=== PATIENT | female | born 1980 | race Caucasian/White ===

== ENCOUNTER 2023-12-03 02:41 | Emergency (ER) | payer OTHER, SELFPAY ==
[2023-12-03 02:42] VITALS: BP 150/82; PULSE 104; RESP 18; TEMP 36.8; O2SAT 98; BMI 44.1
--- NOTE | 2023-12-03 03:42 | EX.ED.DYSGE1 ---
HPI History of Present Illness Chief Complaint: Allergic Reaction Informant: patient Narrative Narrative: Patient is a 43-year-old female with reported history of angioedema (does not know the cause but states she gets angioedema intermittently over the last 10 years). Is not aware of having a history of hereditary angioedema. She states she woke up around midnight and noticed that her tongue felt swollen. She took 2 Benadryl and it did not go down which prompted her to come to the emergency room. She denies difficulty breathing. She denies any rash. She denies any abdominal cramping, nausea or vomiting. She denies any itching. She now feels that it is slightly starting to improve. States in the past steroids are helpful. She denies any new foods, medications or exposures to trigger it. [facility] Medical History Angio-edema Home Medications ?Medication ?Instructions ?Recorded ?Last Taken ?Type doxepin 25 mg capsule 25 mg PO QHS 12/03/23 Unknown History famotidine 20 mg tablet (Pepcid) 20 mg PO BID #10 tabs 12/03/23 Unknown Rx montelukast 10 mg tablet 10 mg PO QHS 12/03/23 12/02/23 History (Singulair) prednisone 20 mg tablet 40 mg (2 x 20 mg) PO DAILY #8 tabs 12/03/23 Unknown Rx Allergy/AdvReac Type Severity Reaction Status Date / Time Penicillins (PCN) Allergy Hives Verified 12/03/23 02:46 Family History no significant family his Surgical History Hx of cholecystectomy Social History Smoking Status: Former smoker ROS ROS ED Constitutional Constitutional ED: Denies chills or fever(s) ENT ENT ED: Reports other Details: Reports tongue swelling. Denies any swelling of her mouth or throat ; Denies sore throat Respiratory/Chest Respiratory/Chest: Denies cough or dyspnea Gastrointestinal Gastrointestinal: Denies abdominal pain, diarrhea, nausea or vomiting Musculoskeletal Musculoskeletal: Denies arthralgias or myalgias Integumentary Denies rash Allergic/Immunologic Allergic/Immunologic ED: Reports tongue swelling; Denies mouth swelling or urticaria EXAM Physical Exam Const Vital Signs: 12/03/23 02:42 Temperature 98.2 F Temperature Source Temporal Pulse Rate 104 H Respiratory Rate 18 Blood Pressure 150/82 H Blood Pressure Mean 104 Pulse Ox 98 Oxygen Delivery Method Room Air Positive well nourished and well developed General Appearance ED: well developed and NAD HEENT Reports moist mucous membranes HEENT Narrative: Normal oropharynx. Normal uvula. Questionable small amount of swelling on the right side of the tongue but no obvious angioedema on exam Eyes PERRL and EOMs intact bilaterally Neck supple Neck Narrative: No stridor Chest Wall inspection of chest normal Resp normal respiratory effort and clear to auscultation bilaterally Auscultation: Negative for wheezes or diminished lung sounds Cardio regular rate and regular rhythm GI normal to inspection, nondistended, normoactive bowel sounds and non-tender Auscultation: normoactive bowel sounds Extremity normal to inspection General Extremety ED: Negative for edema General Extremity: Negative for edema Neuro oriented x3 Sensorium / Orientation: alert Motor Exam: Negative for general weakness Psych mental status grossly normal Skin no rashes or lesions noted Skin Narrative: No urticaria appreciated MDM MDM MDM Narrative Medical decision making narrative: Patient evaluated for tongue swelling. 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 Denies any new medications or exposures. She feels that after taking 50 mg of Benadryl prior to arrival that her tongue swelling is a little improved now. I do not appreciate any significant angioedema. At this time I do not think she requires IV access, epinephrine, TXA or further Benadryl. Is given oral prednisone and placed on a burst of prednisone. She will continue take Benadryl as needed. Is also given a short course of Pepcid. Given return precautions. Is given a work note per her request. Patient agreeable this plan of care. Patient stable in the emergency room. Discharge Plan Triage Chief Complaint: Allergic Reaction ED Provider: Tonie Peters Dx/Rx/DC Orders Clinical Impression: Mild tongue swelling, History of angioedema Instructions: ED Angioedema Prescriptions: New prednisone 20 mg tablet 40 mg PO DAILY Qty: 8 0RF famotidine [Pepcid] 20 mg tablet 20 mg PO BID Qty: 10 0RF No Action montelukast [Singulair] 10 mg tablet 10 mg PO QHS doxepin 25 mg capsule 25 mg PO QHS Stand Alone Forms: ED Work / School Excuse Primary Care Provider: Alexis Mcdaniel Referrals: Alexis Mcdaniel MD [Primary Care Provider] - Activity Restrictions/Additional Instructions: Continue to take Benadryl (up to 50 mg every 6 hours) as needed for symptoms. Take the course of Pepcid and prednisone as prescribed as well. Please return if you have a progression worsening of your symptoms. Print Language: Urdu Disposition Disposition: Home, Self Care
[2023-12-03] MEDS: predniSONE 20 MG Tablet 60 MG PO (03:49)
[2023-12-03] MEDS: Famotidine 20 MG Tablet PO (03:49)
== END 2023-12-03 04:35 | disposition home or self-care (01) ==
PROVIDERS: Emergency Provider Emergency Medicine; PCP Family Medicine; Visit Provider Emergency Medicine
DX: K14.8 Other diseases of tongue (principal); Z87.891 Personal history of nicotine dependence; Z79.899 Other long term (current) drug therapy; Z79.52 Long term (current) use of systemic steroids; Z88.9 Allergy status to unspecified drugs, medicaments and biological substances
CPT/HCPCS: 99282

== ENCOUNTER → 2024-01-31 | Outpatient (CLI) | payer OTHER, SELFPAY ==
[2024-01-31 07:24] LABS: Absolute Lymphocyte Count 2.64 X10^3/uL (0.83-4.51); Absolute Neutrophil Count 6.8 X10^3/uL (2.0-7.7); Basophil# 0.07 X10^3/uL; Basophil% 0.7 % (0-1); Eosinophil# 0.22 X10^3/uL; Eosinophils% 2.1 % (0-5); Hematocrit 45.3 % (37-47); Hemoglobin 14.8 g/dL (12.0-15.0); Lymphocyte # 2.64 X10^3/ul (0.83-4.51); Lymphocyte % 25.2 % (19-41); Mean Corp Hgb Conc 32.7 g/dL (32-36); Mean Corpuscular Hgb 31.4 pg (27.0-32.0); Monocyte% 6.7 % (0-10); NRBC Flagged by Analyzer 0 % (0-5); Neutrophil # 6.79 X10^3/uL (2.7-7.7); Neutrophil % 64.9 % (47-70); Platelet Count 376 K/mm3 (150-450); RBC Distribution Width SD 46.2 fl (35.1-43.9); Red Blood Count 4.72 M/mm3 (4.2-5.4); White Blood Count 10.5 K/mm3 (4.4-11.0)
[2024-01-31 08:20] LABS: ALB/GLOB Ratio 0.8 RATIO (0.9-2.4); AST(SGOT) 13 U/L (15-37); Alanine Aminotransfer ALT/SGPT 19 U/L (13-56); Albumin, Serum 3.2 g/dL (3.2-5.0); Alkaline Phosphatase 80 U/L (45-117); Anion Gap 7 (5-15); BUN 15 mg/dL (7-18); BUN/Creat Ratio 14.3 RATIO (10-20); Calcium,Total 8.6 mg/dL (8.5-10.1); Chloride 109 mmol/L (98-107); Cholesterol 207 mg/dL (200); Creatinine, Serum 1.05 mg/dL (0.55-1.02); EST Glomerular Filtration Rate 60 mL/min (>60); Est Glom Filt Rate - Afr Amer 73 mL/min (>60); Follicle Stimulating Hormone 22.7 mIU/mL; Globulin 4.2 g/dL (2.2-4.2); Glucose 121 mg/dL (74-106); High Density Lipoprotein 54 mg/dL; Luteinizing Hormone 15.6 mIU/mL; Potassium 3.7 mmol/L (3.5-5.1); Protein, Total 7.4 g/dL (6.4-8.2); Sodium Level 139 mmol/L (136-145); Triglycerides 102 mg/dL; Very Low Density Lipoprotein 20 mg/dL (5-40)
[2024-01-31 08:23] LABS: Vitamin D,25 Hydroxy 44.4 ng/mL
[2024-02-01 04:08] LABS: PROGESTERONE 0.3 ng/mL (.)
[2024-02-01 12:35] LABS: Hemoglobin A1c 5.7 % (3.8-5.6)
[2024-02-04 17:07] LABS: Estrogen, Total, Serum 45 pg/mL (.)
== END | disposition home or self-care (01) ==
PROVIDERS: PCP Family Medicine; Referring Provider Family Medicine; Visit Provider Family Medicine
DX: R73.09 Other abnormal glucose (principal); R53.83 Other fatigue; R23.2 Flushing; Z13.220 Encounter for screening for lipoid disorders
CPT/HCPCS: 80053; 80061; 82306; 82672; 83001; 83002; 83036; 84144; 84443; 85025

== ENCOUNTER → 2024-02-10 | Outpatient (CLI) | payer OTHER, SELFPAY ==
--- NOTE | 2024-02-10 15:49 | RAD_ITS ---
STUDY: X-RAY - PELVIS AND RIGHT HIP REASON FOR EXAM: Female, 43 years old. Hip pain TECHNIQUE: 3 views of the pelvis and hip. COMPARISON: None. FINDINGS: There is a non-specific bowel gas pattern. Normal visualized soft tissue structures. Normal bilateral iliac wings, sacroiliac joints and visualized sacrum. Normal bilateral superior and inferior pubic rami. Normal pubic symphysis. Normal bilateral ischial tuberosities. Normal visualized femoral head. Normal acetabulum. Normal hip joint. RAD/HIP, UNI W/ Pelvis 2-3 Views IMPRESSION: Normal x-ray examination of the pelvis and hip. MRI may be useful for more definitive evaluation if clinically warranted Electronically Signed: John Murphy MD at 22:58 EST ,
== END | disposition home or self-care (01) ==
PROVIDERS: PCP Family Medicine; Referring Provider Family Medicine; Visit Provider Family Medicine
DX: M25.551 Pain in right hip (principal)
CPT/HCPCS: 73502

== ENCOUNTER → 2024-05-15 | Outpatient (CLI) | payer OTHER, SELFPAY ==
[2024-05-18 19:08] LABS: HPV APTIMA, High Risk Negative (Negative)
[2024-05-19 08:13] LABS: HPV Reflexed? YES, CHARGE PATIENT
== END | disposition home or self-care (01) ==
LOC: LABSPEC 14:23
PROVIDERS: PCP Family Medicine
DX: R87.619 Unspecified abnormal cytological findings in specimens from cervix uteri (principal)
CPT/HCPCS: 87624; 88175; G0145

== ENCOUNTER → 2024-10-09 | Outpatient (CLI) | payer OTHER, SELFPAY ==
--- NOTE | 2024-10-09 12:23 | BI_ITS ---
EXAM: SCRN MAMM (CAD)W/CHRISTOPHER BILAT DATE: 10/09/2024 CLINICAL HISTORY: F, Age 44 y/o , SCREENING TECHNIQUE: SCRN MAMM (CAD)W/CHRISTOPHER BILAT COMPARISON: Prior exam(s) were compared. FINDINGS: TISSUE DENSITY: There are scattered areas of fibroglandular density. Bilateral Breast Mammographic Findings: No suspicious masses, calcifications or other abnormalities are identified. BI/SCRN MAMM (CAD)W/CHRISTOPHER BILAT IMPRESSION: No mammographic evidence of malignancy in either breast OVERALL FINAL ASSESSMENT BI-RADS 1: NEGATIVE. RECOMMENDATION: Routine annual follow-up in 1 Year A letter with findings and recommendations will be mailed to the patient. Reading Location: [id number]
== END | disposition home or self-care (01) ==
LOC: OPBI 12:22
PROVIDERS: PCP Family Medicine
DX: Z12.31 Encounter for screening mammogram for malignant neoplasm of breast (principal)
CPT/HCPCS: 77063; 77067

== ENCOUNTER 2024-11-01 19:22 | Emergency (ER) | payer OTHER, SELFPAY ==
[2024-11-01 19:24] VITALS: BP 146/78; PULSE 83; RESP 17; TEMP 36.7; O2SAT 100; BMI 43.1
--- NOTE | 2024-11-01 20:13 | CT_ITS ---
EXAM: CT BRAIN/HEAD WITHOUT CONTRAST; CT SPINE CERVICAL WITHOUT CONTRAST CLINICAL HISTORY: FALL, NECK PAIN COMPARISON: None. TECHNIQUE: Noncontrast CT images of the head and cervical spine with multiplanar reconstructions. Dose reduction techniques were used including intermediate exposure control (AEC),iterative reconstruction technique, and/or mA and/or KV dose adjustments based on patient's size. FINDINGS: HEAD: No acute intracranial hemorrhage, extra-axial collection, mass effect or evidence of acute infarct. Ventricles and subarachnoid spaces are normal in size. Orbital contents are unremarkable. Intact skull base and calvarium. Clear paranasal sinuses and mastoid air cells. CERVICAL SPINE: No acute fracture or subluxation. Straightening of the cervical lordosis may be positional or can be seen with muscle spasm. Minimal degenerative changes are present most pronounced at C5-6. No prevertebral soft tissue swelling. Unremarkable paravertebral soft tissues. CT/Brain/Head without Contrast IMPRESSION: No acute intracranial or cervical spine traumatic findings. Reading Location: [id number]
--- NOTE | 2024-11-01 20:13 | CT_ITS ---
EXAM: CT BRAIN/HEAD WITHOUT CONTRAST; CT SPINE CERVICAL WITHOUT CONTRAST CLINICAL HISTORY: FALL, NECK PAIN COMPARISON: None. TECHNIQUE: Noncontrast CT images of the head and cervical spine with multiplanar reconstructions. Dose reduction techniques were used including intermediate exposure control (AEC),iterative reconstruction technique, and/or mA and/or KV dose adjustments based on patient's size. FINDINGS: HEAD: No acute intracranial hemorrhage, extra-axial collection, mass effect or evidence of acute infarct. Ventricles and subarachnoid spaces are normal in size. Orbital contents are unremarkable. Intact skull base and calvarium. Clear paranasal sinuses and mastoid air cells. CERVICAL SPINE: No acute fracture or subluxation. Straightening of the cervical lordosis may be positional or can be seen with muscle spasm. Minimal degenerative changes are present most pronounced at C5-6. No prevertebral soft tissue swelling. Unremarkable paravertebral soft tissues. CT/Spine Cervical without Contras IMPRESSION: No acute intracranial or cervical spine traumatic findings. Reading Location: [id number]
--- NOTE | 2024-11-01 20:59 | ED.VIS.FALL ---
HPI HPI - Fall History of Present Illness Chief Complaint: Fall Narrative Narrative: Patient is a 44-year-old female presenting to the emergency department after a fall. Patient has a past medical history of cervical strain and thoracic myofascial strain. States that she finished having dinner while she was sitting in a recliner watching TV when she stood up and then stretched. She states that she felt a little lightheaded and then fell over onto ottoman striking the left side of her face. She did land on carpet. She states she never lost consciousness she just felt lightheaded and lost her balance. She denies any chest pain, shortness of breath, palpitations, dizziness. She reports she is having neck pain now. [facility] Medical History Thoracic myofascial strain Cervical strain Right hip pain Knee pain, right Angio-edema Home Medications ?Medication ?Instructions ?Recorded ?Last Taken ?Type doxepin 25 mg capsule 25 mg PO QHS 12/03/23 Unknown History famotidine 20 mg tablet (Pepcid) 20 mg PO BID #10 tabs 12/03/23 Unknown Rx montelukast 10 mg tablet 10 mg PO QHS 12/03/23 12/02/23 History (Singulair) cetirizine 10 mg tablet 10 mg PO QDAY 02/15/24 Unknown History fluticasone propionate 50 intranasal 02/15/24 Unknown History mcg/actuation nasal spray,suspension levonorgestrel 0.15 mg-ethinyl 1 tab PO QDAY 02/15/24 Unknown History estradiol 0.03 mg tablet (Altavera (28)) methocarbamol 500 mg tablet 1,000 mg PO BID 02/15/24 Unknown History phentermine 37.5 mg tablet 37.5 mg PO QDAY 02/15/24 Unknown History cyclobenzaprine 10 mg tablet 10 mg PO HS PRN muscle spasm #14 06/14/24 Unknown Rx tabs methylprednisolone 4 mg tablets in See Rx Instructions PO PER PKG DIR 06/14/24 Unknown Rx a dose pack (Medrol (Pete)) #21 tabs Allergy/AdvReac Type Severity Reaction Status Date / Time amoxicillin (From Augmentin) Allergy Intermediate Upset Verified 11/01/24 19:26 Stomach clavulanic acid (From Allergy Intermediate Upset Verified 11/01/24 19:26 Augmentin) Stomach SHAHRIAR Inhibitors Allergy Unknown PT UNSURE Verified 11/01/24 19:26 OF REACTION Penicillins (PCN) Allergy Hives Verified 11/01/24 19:26 Surgical History Hx of cholecystectomy Social History household members: spouse Smoking Status: Former smoker ROS ROS ED ROS Narrative see HPI EXAM Physical Exam Narrative Exam Narrative: Vital signs: Reviewed General: Alert and oriented. No acute distress HEENT: Head is normocephalic and atraumatic. Midface nontender to palpation. There is a superficial abrasion to the left cheek bone. No laceration. No oral trauma. No pain with EOM. pupils equal round and reactive. Nares are patent. Oropharynx and throat exams normal. Neck: Supple without lymphadenopathy nontender. There is midline cervical spinal tenderness to palpation. No step-offs or deformities. Cardiovascular: Regular rate and rhythm, no murmurs. No rubs or gallops. Normal S1 and S2 Respiratory: Clear to auscultation bilaterally. No wheezes, rales, rhonchi Abdominal: Soft and nontender. Normal bowel sounds. No guarding or rebound. Nonsurgical abdomen Extremities: No tenderness. No bruising. Normal range of motion. Normal sensation. No midline thoracic or lumbar spinal tenderness to palpation. No step-offs or deformities. Hips are stable and nontender to palpation. Extremities are atraumatic and nontender to palpation with normal range of motion. Skin: No rash or redness. Neurological: Cranial nerves II through XII are grossly intact. Normal strength and sensation. Normal cerebellar function The rest of the physical exam is unremarkable Const Vital Signs: 11/01/24 19:24 11/01/24 19:52 11/01/24 21:14 Temperature 98.0 F 98.1 F Temperature Source Temporal Pulse Rate 83 80 Respiratory Rate 17 15 Respiratory Effort Normal Non-Labored Respiratory Depth Normal Blood Pressure 146/78 H 138/75 H Blood Pressure Mean 100 96 Pulse Ox 100 100 Oxygen Delivery Method Room Air Room Air MDM MDM MDM Narrative Medical decision making narrative: Patient is a 44-year-old female presenting to the emergency department for a fall. Patient was seen and examined. Vitals are stable. Patient resting bed comfortably no acute distress. Patient given Tylenol for pain control. Given the midline cervical spinal tenderness to palpation, CT ordered. CT of the brain was also obtained. Given the lightheadedness although I suspect it is orthostatic given she went from sitting to standing and then stretching causing the lightheadedness, I did obtain an EKG which shows normal sinus rhythm with no ischemic changes. No arrhythmia. No ST elevation or depression. CT brain shows no acute intracranial abnormalities. CT cervical spine shows no traumatic findings. Patient was reevaluated. Notified of the negative workup. Instructed to take Tylenol and Motrin at home for pain control. Patient discharged from the Emergency Department. I do not feel that the patient's evaluation reveals any acute reason for admission at this time. I instructed them to either follow-up with their primary care physician or promptly return to the Emergency Department for reevaluation should symptoms worsen or new symptoms develop. I explained what symptoms would indicate the need to return to the emergency department. Shared decision making was used. The patient voiced understanding of the treatment plan and is agreeable with it. Clinical impression: 1. lightheadedness 2. abrasion 3. neck strain History & Record Review Discussion w/independent historian: Patient Radiography Diagnostic Testing: Clinical Impression(s) from Imaging Studies Brain CT 11/01/24 20:13 IMPRESSION: No acute intracranial or cervical spine traumatic findings. Reading Location: [facility] Cervical Spine CT 11/01/24 20:13 IMPRESSION: No acute intracranial or cervical spine traumatic findings. Reading Location: [facility] Discharge Plan Triage Chief Complaint: Fall ED Provider: Giulia Moore Dx/Rx/DC Orders Clinical Impression: Fall, Abrasion of face, Neck strain Instructions: ED Abrasion, ED Neck Sprain or Strain, ED Fall Prevention Prescriptions: No Action levonorgestrel-ethinyl estrad [Altavera (28)] 0.15-0.03 mg tablet 1 tab PO QDAY methocarbamol 500 mg tablet 1,000 mg PO BID fluticasone propionate 50 mcg/actuation spray,suspension intranasal Patient Comments: [NO ORIGINAL SIG] cetirizine 10 mg tablet 10 mg PO QDAY phentermine 37.5 mg tablet 37.5 mg PO QDAY methylprednisolone [Medrol (Pete)] 4 mg tablets,dose pack See Rx Instructions PO PER PKG DIR Qty: 21 0RF Rx Instructions: PO PER PKG DIR cyclobenzaprine 10 mg tablet 10 mg PO HS PRN (Reason: muscle spasm) Qty: 14 0RF montelukast [Singulair] 10 mg tablet 10 mg PO QHS doxepin 25 mg capsule 25 mg PO QHS famotidine [Pepcid] 20 mg tablet 20 mg PO BID Qty: 10 0RF Stand Alone Forms: ED Work / School Excuse Primary Care Provider: Wild Echols Referrals: Wild Echols MD [Primary Care Provider] - 2 Days Activity Restrictions/Additional Instructions: Your evaluation in the Emergency Department did not reveal any acute reason for admission. However, I want to emphasize that you may be early in the course of a disease process or illness even if it is not present. For this reason you should follow-up within 24 hours for reevaluation with either your primary care physician or if necessary back here in the Emergency Department. You should return to the Emergency Department immediately if your symptoms worsen or new symptoms develop. Print Language: Macedonian Disposition Disposition: Home, Self Care Discharge Date/Time: 11/01/24 21:15
--- OUTSIDE RECORDS SUMMARY | 2024-11-01 21:03 | XMS RPT_ITS | CCD ---
Author Organization [facility] Care Team Providers Care Interactive Media Director Name Role Phone VERONAPEYTON Aviles Unavailable Unavailable DUANE STAUFFER Unavailable Unavailable Cheng Mcdaniel MD Primary Care Provider Cheng Mcdaniel MD Primary Care Provider Cheng Mcdaniel MD Primary Care Provider Cheng Mcdaniel MD Primary Care Provider Cheng Mcdaniel MD Primary Care Provider Podlogar QA AUTOMATION ARCHITECT.Jazz COBURN Unavailable JACINTA GREEN Attending Unavailable CHENG MCDANIEL Primary Care Unavailab KOTA Buchanan Attending Unavailable CHENG MCDANIEL Primary Care Unavailab le CHENG MCDANIEL Primary Care Unavailab le CHENG MCDANIEL Primary Care Unavailab le CHENG MCDANIEL Primary Care Unavailab le PODJAZZ JACOBS Attending Unavailable CHENG MCDANIEL Primary Care Unavailab CHENG Chavez Primary Care Unavailab JACINTA Moreno Referring Unavailable CHENG MCDANIEL Primary Care Unavailab le CHENG MCDANIEL Primary Care Unavailab le CHENG MCDANIEL Primary Care Unavailab le CHENG MCDANIEL Primary Care Unavailab le CHENG MCDANIEL Primary Care Unavailab le CHENG MCDANIEL Primary Care Unavailab le CHENG MCDANIEL Primary Care Unavailab le PODJAZZ JACOBS Attending Unavailable CHENG MCDANIEL Primary Care Unavailab le CHENG MCDANIEL Primary Care Unavailab le MICAH JO Referring Unavailable CHENG MCDANIEL Primary Care Unavailab le CHENG MCDANIEL Primary Care Unavailab le JACINTA GREEN Attending Unavailable CHENG MCDANIEL Primary Care Unavailab oneyda RIGGINS MD, WILD Primary Care Physician Vaishnavi GOLDSMITH, Wild Primary Care Provider Vaishnavi GOLDSMITH, Wild Referring Provider [phone] Kunal Chicas Attending Provider McMorrow HOOK PULLER-C, Nico Attending Provider [phone] McMorrow HOOK PULLER-C, Nico Referring Provider Alexis Mcdaniel Primary Care Unavailable Tonie Peters Attending Unavailable McMorrow HOOK PULLER, Nico Attending Unavailable Vaishnavi, Chalon Primary Care Unavailable Kunal Chicas Attending Unavailable Vaishnavi, Chalon Referring Unavailable Vaishnavi, Chalon Primary Care Unavailable Vaishnavi, Chalon Referring Unavailable Vaishnavi, Chalon Primary Care Unavailable Kunal Chicas Attending Unavailable Vaishnavi, Chalon Referring Unavailable Vaishnavi, Chalon Primary Care Unavailable Kunal Chicas Attending Unavailable Vaishnavi, Aiyanaon Attending Unavailable Vaishnavi, Chalon Referring Unavailable Vaishnavi, Chalon Primary Care Unavailable Vaishnavi, Chalon Attending Unavailable Vaishnavi, Chalon Referring Unavailable Vaishnavi, Chalon Primary Care Unavailable McMorrow HOOK PULLER, Nico Attending Unavailable McMorrow HOOK PULLER, Nico Referring Unavailable Vaishnavi, Chalon Primary Care Unavailable DEMARCUS LARSEN Attending Unavailable VAISHNAVI GOLDSMITH, WILD Primary Care Unavailable Allergies Allergy Classification Reported Allergen(s) Allergy Type Date of Onset Reaction(s) Facility Penicillins (antibiotic) (1 source) Penicillins Drug Allergy 2 [facility] (7 sources) Angiotensin-con verting enzyme inhibitor agent; Translations: [HAROLDO INHIBITORS] Propensity to adverse reactions to drug 4 [facility] Work Phone: Comment on above: ANGIOEDEMA (6 sources) Penicillins; Translations: [PENICILLINS] Propensity to adverse reactions 2 [facility] (20 sources) Bupropion/Dieth ylpropion; Translations: [BUPROPION/DIET HYLPROPION] Propensity to adverse reactions 3 Rash [facility] (20 sources) Angiotensin-con verting enzyme inhibitor agent Propensity to adverse reactions to drug 10-23-201 4 Angioedema [facility] Work Phone: (20 sources) Penicillins Propensity to adverse reactions 2 [facility] (1 source) buPROPion; Translations: [bupropion] Drug Allergy [facility] (1 source) Amoxicillin Drug Allergy 5 Upset Stomach [facility] (1 source) Angiotensin Converting Enzyme (Haroldo) Inhibitors Allergy to substance 5 PT UNSURE OF REACTION [facility] (1 source) Clavulanate Drug Allergy 5 Upset Stomach [facility] (1 source) Penicillins Allergy to substance 5 Hives [facility] (1 source) Amoxicillin Drug Allergy 5 [facility] (1 source) Angiotensin Converting Enzyme (Haroldo) Inhibitors Drug allergy (disorder) 5 [facility] (1 source) Clavulanate Drug Allergy 5 [facility] (1 source) Penicillins Drug allergy (disorder) 5 [facility] Medications Current Medications Medication Drug Class(es) Dates Sig (Normalized) Sig (Original) Albuterol (1 source) beta2-Adrenergic Agonist Start: 02-23-2017 take 1 puff(s) by inhalation once as needed for wheezing Ventolin HFA MDI (90 mcg/inh) inhalation aerosol 1 puff(s), Inhalation, Once, PRN as needed for wheezing, # 18 gram(s), 0 Refill(s) Start Date: 02/23/17 Status: Ordered Quantity: 18.0 Unit: g Repeat number: 1 cephalexin 500 mg oral capsule (4 sources) Cephalosporin Antibacterial Start: 07-22-2022 End: 08-01-2022 take 1 capsule by mouth four times daily cephALEXin (KEFLEX) 500 mg capsule Indications: Skin infection Take 1 capsule by mouth four times daily for 5 days. 40 capsule 0 07/27/2022 08/01/2022 Active Comment on above: Take 1 capsule by [facility] four times daily for 5 days. cetirizine hydrochloride 10 mg oral tablet (5 sources) Histamine-1 Receptor Antagonist Start: 01-27-2024 take 1 tablet by mouth once daily Cetirizine 10 mg tablet Active 10 mg PO daily February 15, 2024 1:00am Start: 01-14-2024 End: 01-21-2024 take 1 tablet by mouth once daily cetirizine (ZYRTEC) 10 mg tablet Take 1 tablet by mouth once daily for 7 days. 7 tablet 01/14/2024 01/21/2024 Active cyclobenzaprine hydrochloride 10 mg oral tablet (10 sources) Muscle Relaxant Start: 02-15-2024 End: 06-14-2024 take 1 tablet by mouth at bedtime as needed for muscle spasms Cyclobenzaprine 10 mg tablet Active 10 mg PO BEDTIME as needed for muscle spasm 14 0 June 14, 2024 11:29am Start: 03-06-2022 End: 06-19-2022 take 1 tablet by mouth every eight hours as needed cyclobenzaprine (FLEXERIL) 10 mg tablet Take 1 tablet by mouth three times daily as needed for muscle spasm. 21 tablet 0 03/06/2022 06/19/2022 Discontinued (Course of therapy completed) Comment on above: Take 1 tablet by ricardo th three times daily as needed for muscle spasm. doxepin hydrochloride 25 mg oral capsule (20 sources) Tricyclic Antidepressant Start: 02-06-20 23 End: 01-27-20 24 take 1 capsule by mouth at bedtime Doxepin 25 mg capsule Active 25 mg PO AT BEDTIME December 03, 2023 12:00am Start: 02-02-2022 End: 11-30-2022 take 1 capsule by mouth once daily at bedtime doxepin capsule 50 mg Take 1 capsule by mouth daily at bedtime. 30 capsule 11 02/02/2022 11/30/2022 Discontinued Start: 08-08-2021 End: 02-02-2022 take 1 capsule by mouth once daily at bedtime doxepin capsule 75 mg Take 1 capsule by mouth daily at bedtime. 30 capsule 11 08/08/2021 02/02/2022 Discontinued Start: 05-20-2021 End: 08-08-2021 take 1 capsule by mouth once daily at bedtime doxepin capsule 100 mg Indications: Urticaria , Angioedema, subsequent encounter , Cough TAKE 1 CAPSULE BY MOUTH EVERYDAY AT BEDTIME 90 capsule 0 05/20/2021 08/08/2021 Discontinued Start: 04-22-2020 End: 04-26-2020 take 1 capsule by mouth once daily at bedtime doxepin capsule 100 mg TAKE 1 CAPSULE BY MOUTH EVERYDAY AT BEDTIME 30 capsule 04/22/2020 04/26/2020 Discontinued Start: 09-25-2019 End: 03-28-2020 take 1 capsule by mouth once daily at bedtime doxepin capsule 100 mg TAKE 1 CAPSULE BY MOUTH EVERYDAY AT BEDTIME 30 capsule 5 09/25/2019 03/28/2020 Discontinued Comment on above: TAKE 1 CAPSULE BY MO UTH EVERYDAY AT BEDTIME Take 1 capsule by mo uth daily at bedtime. doxycycline hyclate 100 mg oral tablet (3 sources) Tetracycline-class Drug Start: End: take 1 tablet by mouth twice daily doxycycline (VIBRA-TABS) 100 mg tablet Take 1 tablet by mouth two times a day for 7 days. 14 tablet 0 07/11/2023 07/18/2023 Active Comment on above: Take 1 tablet by ricardo th two times a day for 7 days. Levonorgestrel-Ethin yl Estrad (20 sources) Progestin, Estrogen, Progestin-containing Intrauterine Device Start: Levonorgestrel-Ethin yl Estrad (Altavera (28)) 0.15-0.03 mg tablet Active 1 {tbl} PO daily February 15, 2024 1:00am Start: 05-13-2023 take 1 tablet by ricardo th once daily levonorgestrel-ethinyl estradiol (ALTAVERA, 28,) 0.15-0.03 mg per tab Indications: Medication refill , Encounter for surveillance of contraceptive pills Take 1 tablet by mouth once daily. 84 tablet 4 05/13/2023 Active Start: 05-07-2022 End: 05-13-2023 take 1 tablet by mouth once daily ALTAVERA, 28, 0.15-0.03 mg per tab Indications: Medication refill , Encounter for surveillance of contraceptive pills TAKE 1 TABLET BY MOUTH EVERY DAY 84 tablet 4 05/07/2022 05/13/2023 Discontinued Start: 05-07-2022 take 1 tablet by ricardo th once daily ALTAVERA, 28, 0.15-0.03 mg per tab Indications: Medication refill , Encounter for surveillance of contraceptive pills TAKE 1 TABLET BY MOUTH EVERY DAY 84 tablet 4 05/07/2022 Active Start: 05-05-2021 End: 05-07-2022 take 1 tablet by mouth once daily levonorgestrel-ethinyl estradiol (KURVELO, 28,) 0.15-0.03 mg per tab Indications: Medication refill , Encounter for surveillance of contraceptive pills Take 1 tablet by mouth once daily. 84 tablet 4 05/05/2021 05/07/2022 Discontinued Start: 05-05-2021 take 1 tablet by ricardo th once daily levonorgestrel-ethinyl estradiol (KURVELO, 28,) 0.15-0.03 mg per tab Indications: Medication refill , Encounter for surveillance of contraceptive pills Take 1 tablet by mouth once daily. 84 tablet 4 05/05/2021 Active Start: 04-26-2019 End: 04-29-2020 take 1 tablet by mouth once daily levonorgestrel-ethinyl estradiol (KURVELO, 28,) 0.15-0.03 mg per tab Indications: Medication refill Take 1 tablet by mouth once daily. 84 tablet 4 04/26/2019 04/29/2020 Discontinued Comment on above: Take 1 tablet by ricardo th once daily. TAKE 1 TABLET BY RICARDO TH EVERY DAY famotidine 20 mg oral tablet (14 sources) Histamine-2 Receptor Antagonist Start: End: take 1 tablet by mouth twice daily Famotidine (Pepcid) 20 mg tablet Active 20 mg PO TWICE A DAY 10 December 03, 2023 12:00am fluticasone propionate 0.05 mg/actuat metered dose nasal spray (9 sources) Corticosteroid Start: 4 Fluticasone Propionate 50 mcg/actuation spray,suspension Active INTRANASAL February 15, 2024 1:00am Start: 01-14-2024 take 2 spray(s) by m outh once daily fluticasone (FLONASE) 50 mcg/actuation nasal spray Use 2 Sprays in each nostril once daily. Rinse mouth after use. 1 Each 01/14/2024 Active Start: 10-23-2020 End: 08-08-2021 take 2 spray(s) by mouth once daily fluticasone (FLONASE) 50 mcg/actuation nasal spray Use 2 Sprays in each nostril once daily. Rinse mouth after use. 1 Bottle 1 10/23/2020 08/08/2021 Discontinued Comment on above: Use 2 Sprays in each nostril once daily. Rinse mouth after use. levocetirizine dihydrochloride 5 mg oral tablet (1 source) Histamine-1 Receptor Antagonist Start: 02-24-20 levocetirizine 5 mg oral tablet (NF) Dose : 5 mg = 1 tab(s), Oral, qPM, # 30 tab(s), 0 Refill(s) Start Date: 02/23/17 Status: Ordered Quantity: 30.0 Unit: tab(s) Repeat number: 1 methocarbamol 500 mg oral tablet (2 sources) Muscle Relaxant Start: 02-15-20 take 2 tablets by mouth twice daily Methocarbamol 500 mg tablet Active 1000 mg PO TWICE A DAY February 15, 2024 1:00am Start: 12-30-2023 End: 01-02-2024 take 1 tablet by mouth every six hours as needed methocarbamol (ROBAXIN) 500 mg tablet Take 1 tablet by mouth every 6 hours as needed (Pain) for up to 3 days. 12 tablet 12/30/2023 01/02/2024 Active methylPREDNISolone 4 mg oral tablet (3 sources) Corticosteroid Start: 06-14-2024 take 1 tablet by mouth once Methylprednisolone (Medrol (Ifrah)) 4 mg tablets,dose pack Active 0 PO per package directions 21 0 June 14, 2024 12:00am PO PER PKG DIR Start: 08-04-2023 End: 08-10-2023 methylPREDNISolone (MEDROL, IFRAH,) 4 mg Dose-Pack Follow dosing instructions, take with food. 21 tablet 0 08/04/2023 08/10/2023 Active [facility] Medication (1 source) Start: 02-23-2017 Misc Medicatio n 0 Refill(s) Start Date: 02/23/17 Status: Ordered Repeat number: 1 montelukast 10 mg oral tablet (20 sources) Leukotriene Receptor Antagonist Start: 06-24-2021 End: 01-27-2024 take 1 tablet by mouth at bedtime Montelukast (Singulair) 10 mg tablet Active 10 mg PO AT BEDTIME December 03, 2023 12:00am Start: 02-23-2017 End: 04-26-2020 take 1 tablet by mouth once daily at bedtime montelukast (SINGULAIR) 10 mg tablet Take 1 tablet by mouth daily at bedtime. 90 tablet 3 07/28/2019 04/26/2020 Discontinued Comment on above: TAKE 1 TABLET BY RICARDO TH EVERYDAY AT BEDTIME Take 1 tablet by ricardo th daily at bedtime. mupirocin 0.02 mg/mg topical ointment (3 sources) RNA Synthetase Inhibitor Antibacterial Start: End: mupirocin (BACTROBAN) 2 % ointment Apply to affected area three times daily for 7 days. 15 g 0 07/22/2022 07/29/2022 Active Comment on above: Apply to affected ar ea three times daily for 7 days. ofloxacin 3 mg/ml otic solution (1 source) Quinolone Antimicrobial Start: End: ofloxacin (FLOXIN) 0.3 % otic solution Use 5 Drops in the left ear twice daily for 10 days. 5 mL 0 10/14/2022 10/24/2022 Active Comment on above: Use 5 Drops in the l eft ear twice daily for 10 days. phentermine hydrochloride 37.5 mg oral tablet (1 source) Sympathomimetic Amine Anorectic Start: take 1 tablet by mouth once daily Phentermine 37.5 mg tablet Active 37.5 mg PO daily February 15, 2024 1:00am sulfamethoxazole 800 mg / trimethoprim 160 mg oral tablet (4 sources) Dihydrofolate Reductase Inhibitor Antibacterial, Sulfonamide Antimicrobial Start: End: take 1 tablet by mouth twice daily sulfamethoxazole-t rimethoprim (BACTRIM DS) 800-160 mg per tablet Take 1 tablet by mouth two times a day for 7 days. 14 tablet 0 05/23/2023 05/30/2023 Active Start: 07-27-2022 End: 08-06-2022 take 1 tablet by mouth twice daily sulfamethoxazole-trimethoprim (BACTRIM D S) 800-160 mg per tablet Indications: Skin infection Take 1 tablet by mouth twice daily for 10 days. 20 tablet 0 07/27/2022 08/06/2022 Active Comment on above: Take 1 tablet by [facility] twice daily for 10 days. Take 1 tablet by [facility] two times a day for 7 days. triamcinolone acetonide 1 mg/ml topical cream (1 source) Corticosteroid Start: 09-07-2022 End: 09-21-2022 triamcinolone acetonide (KENALOG) 0.1 % cream Indications: Blister of left hand, initial encounter Apply 1 application to affected area three times daily for 14 days. Apply sparingly to area for rash/itching. 45 g 0 09/07/2022 09/21/2022 Active Comment on above: Apply 1 application to affected area three times daily for 14 days. Apply sparingly to area for rash/itching. {28 (norgestrel 0.075 MG Oral Tablet) } Pack [Opill 28 Day] (1 source) Start: 10-02-2024 Opill 0.075 mg oral tablet Dose : 0.075 mg = 1 tab(s), Oral, qDay, # 28 tab(s), 0 Refill(s) Start Date: 10/02/24 Status: Ordered Quantity: 28.0 Unit: tab(s) Repeat number: 1 Completed/Discontinued Medications Medication Drug Class(es) Dates Sig (Normalized) Sig (Original) amoxicillin 50 mg/ml oral suspension (2 sources) Penicillin-class Antibacterial Start: 03-02-2024 End: 03-02-2024 amoxicillin 250 mg oral liquid (AMOXIL) Start: 03-02-2024 End: 03-02-2024 take 5 mL by mouth once 250 mg, ORAL, ONCE, 1 dose, On Cathleen 03/02/24 at 1600, After discussing the indications, benefits, risks, and alternatives, the patient consented both verbally and in written form. Step 1: Give 0.5 mL of Amoxicillin. Observe 30 minutes. If no evidence of IgE-mediated reaction, proceed to step 2. Step 2: Give 4.5mL of Amoxicillin. Observe for 31 minutes. Total dose: 250 mg Total volume: 5 mL Refrigerate - Shake Well., Antimicrobial indication: Empiric, Infectious source(s): Other (free text), Infectious source(s): PCN allergy brompheniramine maleate 0.4 mg/ml / dextromethorphan hydrobromide 2 mg/ml / pseudoephedrine hydrochloride 6 mg/ml oral solution (2 sources) alpha-Adrenergic Agonist, Uncompetitive A-ejadre-R-aspartate Receptor Antagonist, Sigma-1 Agonist Start: 04-25-2021 End: 08-08-2021 take 5-10 mL by mouth every six hours as needed Djkefdmzcgvvkse-Iqniquukp-FC (BROMFED DM) 2-30-10 mg/5 mL syrup Take 5-10 ml po q6h prn 120 mL 0 04/25/2021 08/08/2021 Discontinued Comment on above: Take 5-10 ml po q6h prn 24 hr diclofenac sodium 100 mg extended release oral tablet (20 sources) Nonsteroidal Anti-inflammatory Drug Start: 11-30-2022 End: 08-26-2023 take 1 tablet by mouth once daily diclofenac XR (VOLTAREN-XR) 100 mg Tb24 Indications: Primary osteoarthritis of right knee Take 1 tablet by mouth once daily. 30 tablet 07/27/2023 08/26/2023 Start: 04-20-2022 End: 11-30-2022 take 1 tablet by mouth once daily diclofenac XR (VOLTAREN-XR) 100 mg Tb24 Indications: Primary osteoarthritis of right knee TAKE 1 TABLET BY MOUTH EVERY DAY 30 tablet 6 04/20/2022 11/30/2022 Discontinued Start: 04-29-2021 End: 04-20-2022 take 1 tablet by mouth once daily diclofenac XR (VOLTAREN-XR) 100 mg Tb24 Indications: Primary osteoarthritis of right knee Take 1 tablet by mouth once daily. 30 tablet 6 09/09/2021 04/20/2022 Discontinued Start: 03-29-2020 End: 10-27-2020 take 1 tablet by mouth three times daily as needed for pain diclofenac, EC, (VOLTAREN) 75 mg EC tablet Indications: Primary osteoarthritis of right knee Take 1 tablet by mouth three times daily as needed. FOR PAIN 90 tablet 2 03/29/2020 10/27/2020 Discontinued Comment on above: Take 1 tablet by ricardo th once daily. TAKE 1 TABLET BY RICARDO TH EVERY DAY [id number] 0.3 ml EPINEPHrine 1 mg/ml auto-injector (1 source) alpha-Adrenergic Agonist, beta-Adrenergic Agonist, Catecholamine Start: 12-06-2 017 EpiPen 2-Ifrah 0.3 mg injectable kit Dose : 0.3 mg = 1 EA, Intramuscular, AsDirected, PRN allergic reaction, # 1 kit(s), 0 Refill(s) Start Date: 02/24/17 Status: Ordered Quantity: 1.0 Unit: kit(s) Repeat number: 1 naproxen 500 mg oral tablet (1 source) Nonsteroidal Anti-inflammatory Drug Start: End: take 1 tablet by mouth twice daily as needed for pain naproxen (NAPROSYN) 500 mg tablet Indications: Acute pain of right knee Take 1 tablet by mouth twice daily as needed (pain/inflammation, take with food.). 20 tablet 1 08/18/2019 03/25/2020 Discontinued (Course of therapy completed) ondansetron 4 mg disintegrating oral tablet (2 sources) Serotonin-3 Receptor Antagonist Start: End: take 1 tablet by mouth every eight hours as needed ondansetron orally disintegrating (ZOFRAN ODT) 4 mg disintegrating tablet Take 1 tablet by mouth every 8 hours as needed. 20 tablet 0 09/25/2020 08/08/2021 Discontinued Comment on above: Take 1 tablet by [facility] every 8 hours as needed. predniSONE 20 mg oral tablet (2 sources) Start: End: take 2 tablets by mouth once daily Prednisone 20 mg tablet Discontinued 40 mg PO DAILY 8 0 December 03, 2023 12:00am February 15, 2024 12:22pm Start: 03-06-2022 End: 03-18-2022 predniSONE (DELTASONE) 10 mg tablet Take 6 tabs for 3 days, then 4 tabs for 3 days, then 2 tabs for 3 days then 1 tab for 3 days with food. 39 tablet 0 03/06/2022 03/18/2022 Active Comment on above: Take 6 tabs for 3 da ys, then 4 tabs for 3 days, then 2 tabs for 3 days then 1 tab for 3 days with food. Sodium Chloride (2 sources) End: 08-08-2021 sodium chloride (SALINEX NASAL) Use in the nose three times daily. 0 08/08/2021 Discontinued sodium chloride (SALINEX NASAL) Use in the nose three times daily. 0 Active Comment on above: Use in the nose thre e times daily. Problems Active Problems Problem Classification Problem Date Documented Da te Episodic/Chronic Abdominal pain (2 sources) Finding of sensation of abdomen; Translations: [Unspecified abdominal pain] Episodic Administrative/social admission (2 sources) Repeated prescription; Translations: [Encounter for issue of repeat prescription] Episodic Contraceptive and procreative management (2 sources) Oral contraception; Translations: [Encounter for surveillance of contraceptive pills] Episodic Malaise and fatigue (3 sources) Fatigue; Translations: [Other fatigue] 11-16-2022 Episodic Nausea and vomiting (1 source) Nausea; Translations: [Nausea] Episodic Osteoarthritis (20 sources) Osteoarthritis; Translations: [Unspecified osteoarthritis, unspecified site] Onset: 07-02-2017 07-02-2017 Chronic Other aftercare (8 sources) Patient encounter status; Translations: [Other residential (current) drug therapy] Episodic Other ear and sense organ disorders (1 source) Impacted cerumen in left ear; Translations: [Impacted cerumen, left ear] 10-14-2022 Episodic Other gastrointestinal disorders (3 sources) Diarrhea; Translations: [Diarrhea, unspecified] Episodic Other injuries and conditions due to external causes (3 sources) Blister of skin; Translations: [Other injury of unspecified body region, initial encounter] Episodic Other injuries and conditions due to external causes (1 source) Injury of right wrist; Translations: [Unspecified injury of right wrist, hand and finger(s), initial encounter] 03-07-2020 Episodic Other lower respiratory disease (5 sources) Cough; Translations: [Cough] Episodic Other non-traumatic joint disorders (20 sources) Pain in right knee; Translations: [Pain in joint, lower leg] Onset: 11-13-2019 11-13-2019 Episodic Other non-traumatic joint disorders (1 source) Hip pain; Translations: [Pain in right hip] 02-15-2024 Episodic Other nutritional; endocrine; and metabolic disorders (20 sources) Body mass index 40+ - severely obese; Translations: [Morbid (severe) obesity due to excess calories] Onset: 07-02-2017 07-02-2017 Chronic Other screening for suspected conditions (not mental disorders or infectious disease) (3 sources) Encounter for screening mammogram for malignant neoplasm of breast; Translations: [Unspecified abnormal cytological findings in specimens from cervix uteri] Onset: 10-04-2023 Episodic Other skin disorders (1 source) Tongue swelling; Translations: [Localized swelling, mass and lump, head] 12-11-2023 Episodic Other upper respiratory disease (1 source) Congestion of nasal sinus; Translations: [Nasal congestion] 01-14-2024 Episodic Other upper respiratory infections (3 sources) Acute upper respiratory infection; Translations: [Acute upper respiratory infection, unspecified] 12-02-2022 Episodic Residual codes; unclassified (1 source) H/O: Disorder; Translations: [Personal history of other specified conditions] 12-11-2023 Episodic Skin and subcutaneous tissue infections (2 sources) Infection of skin; Translations: [Local infection of the skin and subcutaneous tissue, unspecified] Episodic Spondylosis; intervertebral disc disorders; other back problems (1 source) Acute low back pain; Translations: [Acute left-sided low back pain without sciatica] Episodic Superficial injury; contusion (2 sources) Blister of hand without infection; Translations: [Blister (nonthermal) of left hand, initial encounter] Episodic Viral infection (1 source) Viral disease; Translations: [Viral infection, unspecified] 02-23-2023 Episodic Past or Other Problems Problem Classification Problem Date Documented Date Episodic/Chronic Allergic reactions (20 sources) Urticaria; Translations: [Urticaria, unspecified] Onset: 04-26-2019 Episodic Cancer of cervix (20 sources) Atypical squamous cells of undetermined significance on cervical Papanicolaou smear; Translations: [Atypical squamous cells of undetermined significance on cytologic smear of cervix (ASC-US)] Onset: 04-22-2019 05-31-2019 Episodic Diabetes mellitus without complication (1 source) Other abnormal glucose; Translations: [Other abnormal glucose] Onset: 02-29-2024 Episodic Other injuries and conditions due to external causes (20 sources) Angioedema; Translations: [Angioneurotic edema, subsequent encounter] Onset: 01-02-2014 Episodic Other injuries and conditions due to external causes (1 source) Angioneurotic edema, subsequent encounter; Translations: [Angioedema, subsequent encounter] Onset: 01-02-2014 Episodic Other non-traumatic joint disorders (20 sources) Effusion of right knee joint; Translations: [Effusion, right knee] Onset: 11-13-2019 11-13-2019 Episodic Other non-traumatic joint disorders (4 sources) Pain in right shoulder; Translations: [Pain in joint, shoulder region] Onset: 08-04-2023 08-04-2023 Episodic Other non-traumatic joint disorders (1 source) Pain in right hip; Translations: [Pain in right hip] Onset: 03-10-2024 Episodic Other nutritional; endocrine; and metabolic disorders (20 sources) Body mass index 30+ - obesity; Translations: [Adult BMI 30+] Onset: 02-14-2013 Resolved: 07-02-2017 07-02-2017 Chronic Sprains and strains (8 sources) Strain of neck muscle; Translations: [Strain of muscle, fascia and tendon at neck level, initial encounter] Onset: 06-14-2024 Episodic Results Test Name Value Interpretation Reference Range Facility Breast imaging reportOrdered By: Brittani Short on 10-10-2024 Study report [facility] Imaging Services [address] [place], [place] [address] SCRN MAMM (CAD)W/CHRISTOPHER BILAT MR#: [id number] Acct: [id number] Name: MICHAELLE MAYS Rep #: [id number] : 1980 F 44 From: Mati Ann MD PCP: Dr. Wild Riggins MD Status: REG CL I Study:SCRN MAMM (CAD)W/CHRISTOPHER BILAT Date of Exa m: 10/09/24 Exam# [id number] Ordering Dr: Nico Osuna HOOK PULLER HOOK PULLER-C EXAM: SCRN MAMM (CAD)W/CHRISTOPHER BILAT DATE: 10/09/2024 CLINICAL HISTORY: F, Age 44 y/o , SCREENING TECHNIQUE: SCRN MAMM (CAD)W/CHRISTOPHER BILAT COMPARISON: Prior exam(s) were compared. FINDINGS: TISSUE DENSITY: There are scattered areas of fibroglandular density. Bilateral Breast Mammographic Findings: No suspicious masses, calcifications or other abnormalities are identified. BI/SCRN MAMM (CAD)W/CHRISTOPHER BILAT IMPRESSION: No mammographic evidence of malignancy in either breast OVERALL FINAL ASSESSMENT BI-RADS 1: NEGATIVE. RECOMMENDATION: Routine annual follow-up in 1 Year A letter with findings and recommendations will be mailed to the patient. Reading Location: [id number] CC: Nico Osuna; Dr. Wild Riggins MD ~ Leak Hunter: Signed [facility] SCRN MAMM (CAD)W/CHRISTOPHER BILATo n 10-09-2024 SCRN MAMM (CAD)W/CHRISTOPHER BILAT [facility] Imaging Services [address] [place], [place] [id number] SCRN MAMM (CAD)W/CHRISTOPHER BILAT MR#: [id number] Acct: [id number] Name: MICHAELLE MAYS Rep #: [id number] : 1980 F 44 From: Brittani Ugalde i, MD PCP: Dr. Wild Riggins MD Status: [facility] CLI Study: SCRN MAMM (CAD)W/CHRISTOPHER BILAT Date of Exam: 09/20 04/15 Exam# [id number] Ordering Dr: Nico Osuna NP, NP EXAM: SCRN MAMM (CAD)W/CHRISTOPHER BILAT DATE: 10/09/2024 CLINICAL HISTORY: F, Age 44 y/o , SCREENING TECHNIQUE: SCRN MAMM (CAD)W/CHRISTOPHER BILAT COMPARISON: Prior exam(s) were compared. FINDINGS: TISSUE DENSITY: There are scattered areas of fibroglandular density. Bilateral Breast Mammographic Findings: No suspicious masses, calcifications or other abnormalities are identified. BI/SCRN MAMM (CAD)W/CHRISTOPHER BILAT IMPRESSION: No mammographic evidence of malignancy in either breast OVERALL FINAL ASSESSMENT BI-RADS 1: NEGATIVE. RECOMMENDATION: Routine annual follow-up in 1 Year A letter with findings and recommendations will be mailed to the patient. Reading Location: KYLE CC: Nico Osuna; Dr. Wild Riggins MD Leak Hunter: Signed Normal [facility] Laboratory - Microbiology an d Antimicrobial susceptibilityOrdered By: Kunal Adams on 06-27-2024 SARS-CoV-2 (COVID-19) RNA VIVIAN+probe Ql (Unsp spec) Not detected [facility] No Panel InformationOrdered By: Kunal Adams on 06-27-2024 Influenza Types A,B Rapid (Clinic) Not detected [facility] Urgent Care Visit Reporton 0 06-27-2024 Urgent Care Visit Report [facility] [address], [address] [place] [address] OFFICE VISIT Date of Service: 06/27/24 MR#: [id number] Acct: [id number] Name: MICHAELLE MAYS Rep #: [id number] : 1980 Provider: [employer]IN [employer] Age/Sex: 44/F Location: [facility] Status: Signed Intake Vital Signs 02/15/24 11:17 06/27/24 06:27 Height 5 ft 5 in Weight: 269 lb BMI 44.7 BP 138/84 H 124/84 H Blood Pressure Location Lt brachial Position Sitting Sitting Respiration 18 Pulse 85 89 Pulse Source Monitor Temp 98.6 F 98.2 F Temp Source Oral Oral Pulse Oximetry (%) 98 96 Oxygen Delivery Method room air room air Intake Visit Reasons: Fatigue Accompanied by: Self Allergies amoxicillin (From Augmentin) Allergy (Intermediate, Verified 06/27/24 06:30) Upset Stomach clavulanic acid (From Augmentin) Allergy (Intermediate, Verified 06/27/24 06:30) Upset Stomach HAROLDO Inhibitors Allergy (Unknown, Verified 06/27/24 06:30) PT UNSURE OF REACTION Penicillins (PCN) Allergy (Verified 06/27/24 06:30) Hives Medications ???Medication ???Instructions ???Recorded ???Confirmed ???Type doxepin 25 mg capsule 25 mg PO QHS 12/03/23 06/27/24 His tory famotidine 20 mg tablet (Pepcid) 20 mg PO BID #10 tabs 12/03/2311/13 Rx montelukast 10 mg tablet 10 mg PO QHS 12/03/23 06/27/24 His tory (Singulair) cetirizine 10 mg tablet 10 mg PO QDAY 02/15/24 06/27/24 Hi story fluticasone propionate 50 intranasal 02/15/24 06/27/24 Histo ry mcg/actuation nasal spray,suspension levonorgestrel 0.15 mg-ethinyl 1 tab PO QDAY 02/15/24 06/27/24 Hi story estradiol 0.03 mg tablet (Altavera (28)) methocarbamol 500 mg tablet 1,000 mg PO BID 02/15/24 06/27/24 History phentermine 37.5 mg tablet 37.5 mg PO QDAY 02/15/24 06/27/24 History cyclobenzaprine 10 mg tablet 10 mg PO HS PRN muscle spasm #14 0 06/14/24 06/27/24 Rx tabs methylprednisolone 4 mg tablets in See Rx Instructions PO PER PKG D IR 06/14/24 06/27/24 Rx a dose pack (Medrol (Ifrah)) #21 tabs Nurse's Note: Patient has fatigue and she feels run down. Patient states she is hot and cold but no fever. Patient states every once in a while her stomach is upset. [facility] Medical History (Updated 06/14/24 @ 11:39 by Kunal MELISSA, PA) Thoracic myofascial strain Cervical strain Right hip pain Knee pain, right Angio-edema Surgical History Hx of cholecystectomy Social History Smoking Status: Former smoker HPI HPI Details: MICHAELLE MAYS, is a 44 F who presents to the office today for initial evaluation in the [facility] for less than 24-hour history of persistent fatigue and intermittent hot/ cold symptoms. No c/o fever, chills, cough, MALAVE, myalgias, fatigue, congestion/ runny nose, nausea, abdominal pain, or diarrhea. Patient notes no complaints of chest pain or shortness of breath or dyspnea on exertion. No close contacts recently dx???d w/ similar complaints. No hrvl-fkh-wnbqybb taken to assist. No other associated symptoms and no other alleviating/aggravati ng factors. ROS Const Constitutional: No other (As above) Exam Const General: cooperative, healthy appearing and no acute distress Orientation: alert, awake and oriented x3 HENMT Head: normal to inspection Ears: hearing grossly normal bilaterally, external ears normal, TM's normal bilaterally and EAC's normal Nose: external nose normal, nares normal, septum normal and clear nasal discharge Face and sinus: normal facial exam, sinuses nontender and face symmetric Mouth: oral mucosae normal, lip normal, tongue normal and oropharynx normal Throat: posterior oropharynx normal, tonsils normal, uvula midline and no postnasal drainage Eyes General: appearance normal, both eyes and all related structures Neck Neck: normal visual inspection, full ROM, no lymphadenopathy, no meningeal signs and supple Neck mass: No Thyroid: thyroid normal Lymphatic: no lymphadenopathy noted Chest Chest palpation inspection: normal inspection of the chest Resp Effort Inspection: normal respiratory effort, able to speak in complete sentences and cough Quality of cough: wet (nonproductive in office today) Auscultation: Bilateral: Clear to Auscultation Cardio Palpation: normal PMI Rate: tachycardic Rhythm: regular rhythm Heart Sounds: S1 normal, S2 normal, no gallops, no murmurs and no rubs Pulses: radial pulses present GI/ No CVA tenderness Abd is large pannus/ obese - though soft/ nontender throughout w/o organomegaly Skin General: no rashes or lesions noted Neuro General: patient alert, patient awake and patient oriented x3 Cognition: normal cognition Speech: speech normal Psych (more content not included)... Normal [facility] Urgent Care Visit Reporton 0 06-14-2024 Urgent Care Visit Report [facility] [address], [address] [place] [address] OFFICE VISIT Date of Service: 06/14/24 MR#: [id number] Acct: [id number] Name: MICHAELLE MAYS Sincere Rep #: [id number] : 1980 Provider: [employer]IN Power Age/Sex: 44/F Location: [facility] Status: Signed Intake Vital Signs 02/15/24 11:17 06/14/24 11:24 Height 5 ft 5 in Weight: 269 lb BMI 44.7 BP 138/84 H 130/74 H Blood Pressure Location Lt brachial Lt brachial Position Sitting Sitting Respiration 18 16 Pulse 85 76 Pulse Source Monitor NIBP Temp 98.6 F 98.3 F Temp Source Oral Oral Pulse Oximetry (%) 98 99 Oxygen Delivery Method room air room air Intake Visit Reasons: R SHOULDER/NECK PAIN Chief Complaint: right neck, right 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 denies radiation into arm. hx pinched nerve in neck and occasionally will flare per pt, feels same. denies fall, trauma, new injury PFSH Medical History (Updated 06/14/24 @ 11:39 by Kunal MELISSA, PA) Thoracic myofascial strain Cervical strain Right hip pain Knee pain, right Angio-edema Surgical History Hx of cholecystectomy Social History Smoking Status: Former smoker HPI HPI Chief Complaint: right neck, right scapula Details: MICHAELLE MAYS, is a 44 F who presents to the office today for recurring right posterior neck/upper back pain beginning earlier this morning while at work; patient states she has had such similar symptoms over the last several years. Patient notes she will typically be prescribed a muscle relaxer by her PCP, though unable to get in with them today. She notes no BUE radicular complaints upon questioning. No chest pressure or shortness of breath or dyspnea on exertion or mid low back pain upon questioning. Kchj-lqm-mlicpbg Tylenol with minimal benefit, and states she is unable to take NSAIDs due to topical Voltaren use for her knees. No other associated symptoms and no other alleviating/aggravati ng factors. ROS Const Constitutional: No other (As above) Exam Const General: cooperative, healthy appearing and no acute distress Orientation: alert and awake HENMT Head: normal to inspection Ears: hearing grossly normal bilaterally and external ears normal Nose: external nose normal Neck Neck: normal visual inspection, full ROM, no meningeal signs and supple Chest Chest palpation inspection: normal inspection of the chest Resp Effort Inspection: normal respiratory effort and able to speak in complete sentences Cardio Rate: regular rate Pulses: radial pulses present Musc Cervical Spine: normal cervical lordosis, cervical ROM normal, cervical muscular tenderness (right) and pain with cervical ROM (With flexion exacerbating right cervical paraspinal musculature tenderness); No cervical spasm or cervical spinal tenderness Thoracic/Lumbar Spine: thoracic and lumbar spine normal to inspection, No surgical scar(s) present and pain with thoraco-lumbar ROM (With cervical flexion the right thoracic paraspinal musculature) Skin General: no rashes or lesions noted Neuro General: patient alert and patient awake Cognition: normal cognition Speech: speech normal Extrem General: normal to inspection Psych Appearance: grossly normal Mental Status: mental status grossly normal Mood: congruent mood Affect: normal affect Speech and Movement: speech and movement normal Attitude: cooperative Coding Level of Care Code Off vis,new,prev 18-39yrs Diagnoses Cervical strain S16.1XXA Thoracic myofascial strain S29.019A Assessment and Plan Assessment and Plan (1) Cervical strain: Status: Acute (2) Thoracic myofascial strain: Status: Acute Plan: Medrol Dosepak and cyclobenzaprine as prescribed today. Home range of motion exercises as instructed today. Work excuse provided at patient request. Follow-up with PCP or orthopedics in 5 to 7 days should symptoms not improve, sooner should symptoms only worsen or any other concerns develop. Patient states acknowledging understanding all the above. This note was generated with [employer] dictation software. It may contain incorrect words, spelling, and punc (more content not included)... Normal [facility] PAP IG HPV HR APTIMAon 05-18 ADEQ Comment Normal . [facility] Comment on above: Order Comment: Speci men Comment: [id number] Comment: Source.............Cervix;EndocervixSpecimen Comment: No. of containers..01 ThinPrep Vial Result Comment: Sati sfactory for evaluation. Endocervical and/or squamous metaplastic cells (endocervical component) are present. Performed By: #### L 7400.0377 ####[facility] [address] [place], [place], [id number] COMM . Normal . [facility] Comment on above: Order Comment: Speci men Comment: [id number] Comment: Source.............Cervix;EndocervixSpecimen Comment: No. of containers..01 ThinPrep Vial Performed By: #### L 7400.0377 ####[facility] [address] [place], [place], [address] COMMENT Comment Normal . [facility] Comment on above: Order Comment: Speci men Comment: [id number] Comment: Source.............Cervix;EndocervixSpecimen Comment: No. of containers..01 ThinPrep Vial Result Comment: This liquid based ThinPrep(R) pap test was screened with the use of an image guided system. Performed By: #### L 7400.0377 ####[facility] [address] [place], [place], [id number] DIAG Comment Normal . [facility] Comment on above: Order Comment: Speci men Comment: [id number] Comment: Source.............Cervix;EndocervixSpecimen Comment: No. of containers..01 ThinPrep Vial Result Comment: NEGA TIVE FOR INTRAEPITHELIAL LESION OR MALIGNANCY. Performed By: #### L 7400.0377 ####[facility] [address] [place], [place], [id number] HPV APTIMA, HR Negative Normal Negative [facility] Comment on above: Order Comment: Speci men Comment: [id number] Comment: Source.............Cervix;EndocervixSpecimen Comment: No. of containers..01 ThinPrep Vial Result Comment: This nucleic acid amplification test detects fourteen high- risk HPV types (16,18,31,33,35,39,45,51,52,56,58,59,66,68) without differentiation. Performed at: - [facility] [id number] Assistant Program Director: Jackie Finn MD, Phone: [phone] Performed at: = - [facility], [place] [address] Assistant Program Director: Jackie Finn MD, Phone: [phone] Performed By: #### L 7400.0377 ####[facility] [address] [place], [place], [id number] PAPSMR Comment Normal . [facility] Comment on above: Order Comment: Speci men Comment: [id number] Comment: Source.............Cervix;EndocervixSpecimen Comment: No. of containers..01 ThinPrep Vial Result Comment: The Pap smear is a screening test designed to aid in the detection of premalignant and malignant conditions of the uterine cervix. It is not a diagnostic procedure and should not be used as the sole means of detecting cervical cancer. Both false-positive and false-negative reports do occur. Performed By: #### L 7400.0377 ####[facility] [address] [place], [place], [id number] PERFORM Comment Normal . [facility] Comment on above: Order Comment: Speci men Comment: [id number] Comment: Source.............Cervix;EndocervixSpecimen Comment: No. of containers..01 ThinPrep Vial Result Comment: Reyna Zuniga, Photography And Prints Curator (ASCP) Performed By: #### L 7400.0377 ####[facility] [address] [place], [place], [id number] ALLERGEN SKIN TEST-PENICILLI Non 03-02-2024 ANTIBIOTIC PERCUTANEOUS AND INTRADERMAL SKIN TESTING Mean Wheal & Flare Diameter (mm) Patient has been identified by name and date of : Yes . Skin test applied by : Nidia Hurst RN Interpreted By: Jacinta Green M.D. * Clinical significant reactions are regarded as a wheal diameter greater than or equal to 3 mm with a flare diameter greater or equal to 6mm. ALLERGENS CONTROL Normal Saline P: W = 0 mm F = 0 mm ID:W = 0 mm F = 0 mm PENICILLIN GK 10,000 UNITS/ML P: W = 0 mm F = 0 mm I D: W = 0 mm F = [address] [facility] [id number] Lot [id number] Exp 06/19/2025 PREPEN -(benzylpenicilloyl polylysine) full strength P: W = 0 mm F = 0mm ID: W = 0 mm F = [address] [facility] 83708-984-31 Lot [id number] Exp 06/19/25 HISTAMINE- positive control (Histamine base 6mg/ml)for Prick and 0.1 mg/ml for intradermal P: W = 9 mm F = 45+ mm [facility] C1 ESTERASE INHIB FUon 03-02 C1 ESTERASE INHIBITOR FUNCTION 106 % Normal >=41 [facility] Comment on above: Order Comment: Speci men Type: BLOOD SPECIMENOrdering Facility: [facility] Address: [address] [place] [address] Result Comment: The concentration of functional C1 esterase inhibitor (C1-INH) is reported as the percentage of the mean level in normal specimens. Concentrations greater than or equal to 68 percent mean normal are considered normal. INTERPRETIVE INFORMATION: T-7-Dsmxxghx Inhib. Functional 68% or greater ........ Normal 41% - 67% ............. Indeterminate 40% or less ........... Abnormal Performed By: [employer] [address] [place] [address] [place] Picker: Kota Piper MD, PhD CLIA Number: [id number] Performed By: #### C 1EFUN ####[employer] LABORATORIESCLIA [id number] [place] [address] C1 ESTERASE INHIBITon 2023 C1 ESTERASE INHIBIT 35 mg/dL Normal 21-38 [facility] Comment on above: Order Comment: Speci men Type: BLOOD SPECIMENOrdering Facility: [facility] Address: [address] [place] [address] Result Comment: Perf ormed By: [employer] [address] [place] [address] [place] Picker: Kota Piper MD, PhD CLIA Number: [id number] Performed By: #### C 1EST ####[facility] [id number] [place] [address] C1Q COMPLEMENT PROTon 2023 C1Q COMPLEMENT PROTEIN 153 ug/mL Normal 109-242 [facility] Comment on above: Order Comment: Speci men Type: BLOOD SPECIMENOrdering Facility: [facility] Address: [address] [place] [address] Result Comment: Perf ormed By: [employer] [address] [place] [address] [place] Picker: Kota Piper MD, PhD CLIA Number: [id number] Performed By: #### C OMC1Q ####[facility]ENTERCLIA [id number] [place] [address] C4 SerPl-mCncon 03-02-2024 Complement C4 [Mass/Vol] 29 mg/dL Normal 13-46 [facility] Comment on above: Order Comment: Speci men Type: BLOOD SPECIMENOrdering Facility: [facility] Address: [address] [place] [address] Performed By: #### 2 4323-8, 4498-2 ####[facility] LABCLIA [id number] [place] [address] [place] CBC W Auto Differential pane l (Bld)on 03-02-2024 Basophils (Bld) [#/Vol] 0.05 10*3/uL [facility] Basophils/100 WBC (Bld) 0.6 % C [facility] Differential cell count method Nom (Bld) Auto [facility] Eosinophils (Bld) [#/Vol] 0.06 10*3/uL [facility] Eosinophils/100 WBC (Bld) 0.7 % [facility] Erythrocyte distribution width (RBC) [Ratio] 13.2 % 11.5 - 15.0 % [facility] Hematocrit (Bld) [Volume fraction] 45.2 % 36.0 - 46.0 % [facility] Hemoglobin (Bld) [Mass/Vol] 14.8 g/dL 11.5 - 15.5 g/dL [facility] Immature granulocytes (Bld) [#/Vol] [facility] Immature granulocytes/100 WBC (Bld) 0.2 % [facility] Lymphocytes (Bld) [#/Vol] 2.70 10*3/uL [facility] Lymphocytes/100 WBC (Bld) 31.8 % [facility] MCH (RBC) [Entitic mass] 32.2 pg 26. 0 - 34.0 pg [facility] MCHC (RBC) [Mass/Vol] 32.7 g/dL 30.5 - 36.0 g/dL [facility] MCV (RBC) [Entitic vol] 98.5 fL 80.0 - 100.0 fL [facility] Monocytes (Bld) [#/Vol] 0.62 10*3/uL [facility] Monocytes/100 WBC (Bld) 7.3 % C [facility] Neutrophils (Bld) [#/Vol] 5.03 10*3/uL [facility] Neutrophils/100 WBC (Bld) 59.4 % [facility] Nucleated RBC (Bld) [#/Vol] [facility] Nucleated RBC/100 WBC (Bld) [Ratio] 0.0 % /100 WBC [facility] Platelet mean volume (Bld) [Entitic vol] 10.6 fL 9.0 - 12.7 fL [facility] Platelets (Bld) [#/Vol] 370 10*3/uL [facility] RBC (Bld) [#/Vol] 4.59 10*6/uL 3.90 - 5.2 0 m/uL [facility] WBC (Bld) [#/Vol] 8.48 10*3/uL [facility] Basophils (Bld) [#/Vol] 0.05 10*3/uL Normal <0.11 [facility] Comment on above: Order Comment: Speci men Type: BLOOD SPECIMENOrdering Facility: [facility] Address: [address] [place] [address] Performed By: #### 5 7021-8 ####[facility] LABCLIA [id number] [place] [address] [place] Basophils/100 WBC (Bld) 0.6 % Normal [facility] Comment on above: Order Comment: Speci men Type: BLOOD SPECIMENOrdering Facility: [facility] Address: [address] [place] [address] Performed By: #### 5 7021-8 ####[facility] LABCLIA [id number] [place] [address] [place] Differential cell count method Nom (Bld) Auto Normal [facility] Comment on above: Order Comment: Speci men Type: BLOOD SPECIMENOrdering Facility: [facility] Address: [address] [place] [address] Performed By: #### 5 7021-8 ####[facility] LABCLIA [id number] [place] [address] [place] Eosinophils (Bld) [#/Vol] 0.06 10*3/uL Normal <0.46 [facility] Comment on above: Order Comment: Speci men Type: BLOOD SPECIMENOrdering Facility: [facility] Address: [address] [place] [address] Performed By: #### 5 7021-8 ####[facility] LABCLIA [id number] [place] [address] [place] Eosinophils/100 WBC (Bld) 0.7 % Normal [facility] Comment on above: Order Comment: Speci men Type: BLOOD SPECIMENOrdering Facility: [facility] Address: [address] [place] [address] Performed By: #### 5 7021-8 ####[facility] LABCLIA [id number] [place] [address] [place] Erythrocyte distribution width (RBC) [Ratio] 13.2 % Normal 11.5-15.0 [facility] Comment on above: Order Comment: Speci men Type: BLOOD SPECIMENOrdering Facility: [facility] Address: [address] [place] [address] Performed By: #### 5 7021-8 ####[facility] LABCLIA [id number] [place] [address] [place] Hematocrit (Bld) [Volume fraction] 45.2 % Normal 36.0-46.0 [facility] Comment on above: Order Comment: Speci men Type: BLOOD SPECIMENOrdering Facility: [facility] Address: [address] [place] [address] Performed By: #### 5 7021-8 ####[facility] LABCLIA [id number] [place] [address] [place] Hemoglobin (Bld) [Mass/Vol] 14.8 g/dL Normal 11.5-15.5 [facility] Comment on above: Order Comment: Speci men Type: BLOOD SPECIMENOrdering Facility: [facility] Address: [address] [place] [address] Performed By: #### 5 7021-8 ####[facility] [facility]CLIA [id number] [place] [address] [place] Immature granulocytes (Bld) [#/Vol] 10*3/uL Normal <0.10 [facility] Comment on above: Order Comment: Speci men Type: BLOOD SPECIMENOrdering Facility: [facility] Address: [address] [place] [address] Performed By: #### 5 7021-8 ####[facility] LABCLIA [id number] [place] [address] [place] Immature granulocytes/100 WBC (Bld) 0.2 % Normal [facility] Comment on above: Order Comment: Speci men Type: BLOOD SPECIMENOrdering Facility: [facility] Address: [address] [place] [address] Performed By: #### 5 7021-8 ####[facility] LABCLIA [id number] [place] [address] [place] Lymphocytes (Bld) [#/Vol] 2.70 10*3/uL Normal 1.00-4.00 [facility] Comment on above: Order Comment: Speci men Type: BLOOD SPECIMENOrdering Facility: [facility] Address: [address] [place] [address] Performed By: #### 5 7021-8 ####[facility] LABCLIA [id number] [place] [address] [place] Lymphocytes/100 WBC (Bld) 31.8 % Normal [facility] Comment on above: Order Comment: Speci men Type: BLOOD SPECIMENOrdering Facility: [facility] Address: [address] [place] [address] Performed By: #### 5 7021-8 ####[facility] LABCLIA [id number] [place] [address] [place] MCH (RBC) [Entitic mass] 32.2 pg Normal 26.0-34.0 [facility] Comment on above: Order Comment: Speci men Type: BLOOD SPECIMENOrdering Facility: [facility] Address: [address] [place] [address] Performed By: #### 5 7021-8 ####[facility] LABCLIA [id number] [place] [address] [place] MCHC (RBC) [Mass/Vol] 32.7 g/dL Normal 30.5-36.[address] [facility] Comment on above: Order Comment: Speci men Type: BLOOD SPECIMENOrdering Facility: [facility] Address: [address] [place] [address] Performed By: #### 5 7021-8 ####[facility] LABCLIA [id number] [place] [address] [place] MCV (RBC) [Entitic vol] 98.5 fL Normal 80.0-100.0 [facility] Comment on above: Order Comment: Speci men Type: BLOOD SPECIMENOrdering Facility: [facility] Address: [address] [place] [address] Performed By: #### 5 7021-8 ####[facility] LABCLIA [id number] [place] [address] [place] Monocytes (Bld) [#/Vol] 0.62 10*3/uL Normal <0.87 [facility] Comment on above: Order Comment: Speci men Type: BLOOD SPECIMENOrdering Facility: [facility] Address: [address] [place] [address] Performed By: #### 5 7021-8 ####[facility] LABCLIA [id number] [place] [address] [place] Monocytes/100 WBC (Bld) 7.3 % Normal C [facility] Comment on above: Order Comment: Speci men Type: BLOOD SPECIMENOrdering Facility: [facility] Address: [address] [place] [address] Performed By: #### 5 7021-8 ####[facility] LABCLIA [id number] [place] [address] [place] Neutrophils (Bld) [#/Vol] 5.03 10*3/uL Normal 1.45-7.50 [facility] Comment on above: Order Comment: Speci men Type: BLOOD SPECIMENOrdering Facility: [facility] Address: [address] [place] [address] Performed By: #### 5 7021-8 ####[facility] LABCLIA [id number] [place] [address] [place] Neutrophils/100 WBC (Bld) 59.4 % Normal [facility] Comment on above: Order Comment: Speci men Type: BLOOD SPECIMENOrdering Facility: [facility] Address: [address] [place] [address] Performed By: #### 5 7021-8 ####[facility] LABCLIA [id number] [place] [address] [place] Nucleated RBC (Bld) [#/Vol] 10*3/uL Normal <0.01 [facility] Comment on above: Order Comment: Speci men Type: BLOOD SPECIMENOrdering Facility: [facility] Address: [address] [place] [address] Performed By: #### 5 7021-8 ####[facility] LABCLIA [id number] [place] [address] [place] Nucleated RBC/100 WBC (Bld) [Ratio] 0.0 /100 WBC Normal [facility] Comment on above: Order Comment: Speci men Type: BLOOD SPECIMENOrdering Facility: [facility] Address: [address] [place] [address] Performed By: #### 5 7021-8 ####[facility] LABIA [id number] [place] [address] [place] Platelet mean volume (Bld) [Entitic vol] 10.6 fL Normal 9.0-12.7 [facility] Comment on above: Order Comment: Speci men Type: BLOOD SPECIMENOrdering Facility: [facility] Address: [address] [place] [address] Performed By: #### 5 7021-8 ####[facility] LABIA [id number] [place] [address] [place] Platelets (Bld) [#/Vol] 370 10*3/uL Normal 150-400 [facility] Comment on above: Order Comment: Speci men Type: BLOOD SPECIMENOrdering Facility: [facility] Address: [address] [place] [address] Performed By: #### 5 7021-8 ####[facility] LABCLIA [id number] [place] [address] [place] RBC (Bld) [#/Vol] 4.59 10*6/uL Normal 3.90-5.20 [facility] Comment on above: Order Comment: Speci men Type: BLOOD SPECIMENOrdering Facility: [facility] Address: [address] [place] [address] Performed By: #### 5 7021-8 ####[facility] LABCLIA [id number] [place] [address] [place] WBC (Bld) [#/Vol] 8.48 10*3/uL Normal 3.70-11.00 [facility] Comment on above: Order Comment: Speci men Type: BLOOD SPECIMENOrdering Facility: [facility] Address: [address] [place] [address] Performed By: #### 5 7021-8 ####[facility] LABCLIA [id number] [address] [place] CNOVon 03-02-2024 CNOV Office Visit (ALLEST ) MICHAELLE MAYS ([id number]) 1980 F Date Time Provider Department 03/02/24 2:00 PM JACINTA GREEN During your visit today, we recorded the following information about you: Pulse Weight 90/minute 121.4 kg Jacinta Green MD 03/02/2024 5:09 PM Signed Allergy and Immunology All aspects of this note have been reviewed and updated. Michaelle Mays is a 43 year old female with PMHx OA, CSU who was last seen by myself on 01/27/2024, here today for follow up. Since last visit, she reports no episodes of swelling or hives since last visit. She is off all antihistamines and even stopped montelukast. She feels well and is agreeable to penicillin allergy evaluation. Documentation from Previous Encounters: January 27, 2024: the patient continues to take montelukast 10 mg daily with no vivid dreams, nightmares, or depression or anxiety. She is currently taking 25 mg of doxepin every night. She reports good control of her symptoms other than 1 episode of swelling and temperature that involved her tongue. She states that the swelling and the hives occur separately. She does not recall any hives with the episode of tongue swelling. She denies any unintentional weight loss. The swelling never last more than hours and resolved with prednisone. Swelling in November and went to ED in [place]. Decreased dose of doxepin to 25 mg at night and interested in 50? Takes singulair as well. In regard to her penicillin allergy, the patient recalls the episode with great detail. She reports that she was in her 20s when she received penicillin. She believes it was a liquid. About 2 days after completing the course of penicillin she developed an urticarial rash all over her body and presented to the urgent care. She was initially given antihistamines and steroids. The rash persisted and looked worse within 24 hours. She then returned to urgent care where she was told her throat was swelling though she does not recall any hoarseness or difficulty swallowing. She does not recall any wheezing, difficulty breathing, change in her voice, loss of consciousness, blistering of her skin, mouth sores, fevers 2 to 3 weeks later, joint swelling, pain with urination, defecation, or eating. She is actively avoided penicillin since then. February 05, 2023 Has not had any hives. Minimal hives since last seen. Has been doing well. Taking doxepin 50 mg and singulair qhs. no angioedema. No other symptoms. No depression. has recently been sick. but overall doing well. February 02, 2022 no hives since last seen. 1 or 2 hives at weather change Taking doxepin and singulair. Tried to get EKG- they had scheduled it but they told she had to get it at [place] and was not able to do it. No illness since last seen. Seeing ENT for left hearing loss. Currently with cracking and popping. Would have pain in ear. Blocked and decreased hearing. August 08, 2021 Patient reports doing well. No hives at all since last seen. no swelling. 1 minimal episode of hives. around ankles in the fall. lasted for a couple days and only 5 of them. Using doxepin and singulair. no concerning cough. Had COVID at early year. minimal symptoms and only had sinus symptoms. No other illnesses. 04/26/20 The patient reports that she has been quite healthy since her last visit. She now rarely develops hives, and when she does, she usually only notices five. They occur around her ankles and feet. She recalls having had one hive around her heel last week. Patient trends to have them more often in the winter. Patient still takes Doxepin and Singulair with great control. She states that she has not experienced much coughing nor SOB. 04/26/19 Patient reports she has been well since last encounter. Her hives have been controlled on doxepin 75mg and singulair 10mg , she continues to have intermittent hives and swelling on her ankles, feet, and hands about once a month or less. (had done extremely well on doxepin, singulair in addition to levocetirizine and famotidine) Last episode was last week, 1-2 hives on her hand that resolved with benadryl. Her cough has been controlled, she had two illnesses in the last 10 months. 09/21/18 Patient reports she intermittently has hive flares. Two months ago, her hives flared for 3 days. She had another flare up one month ago for 3-4 days. Her hives linger for a few days. Prior to these flares, she did not have a flare for 4 months. She has not noticed association with NSAIDs or food. She uses doxepin 75mg daily, Singulair daily, levocetirizine 5mg and pepcid twice a day with symptom control. She denies coughing and allergic rhinitis symptoms. ACT = 25 06/01/18 - Michaelle Mays is a 38 year old female here today for follow up. Pt reports hive sx after medication change from dox (more content not included)... Normal [facility] Comprehensive metabolic 2000 panelon 03-02-2024 Albumin [Mass/Vol] 4.1 g/dL Normal 3.9-4.9 [facility] Comment on above: Order Comment: Speci men Type: BLOOD SPECIMENOrdering Facility: [facility] Address: [address] [place], [place] [address] Performed By: #### 2 4323-8, 4498-2 ####[facility] LABCLIA [id number] [place] [address] [place] ALP [Catalytic activity/Vol] 87 U/L Normal 34-123 [facility] Comment on above: Order Comment: Speci men Type: BLOOD SPECIMENOrdering Facility: [facility] Address: [address] [place] [address] Performed By: #### 2 4323-8, 4498-2 ####[facility] LABCLIA [id number] [place] [address] [place] ALT [Catalytic activity/Vol] 25 U/L Normal 7-38 [facility] Comment on above: Order Comment: Speci men Type: BLOOD SPECIMENOrdering Facility: [facility] Address: [address] [place] [address] Performed By: #### 2 4323-8, 4498-2 ####[facility] LABCLIA [id number] [place] [address] [place] Anion gap [Moles/Vol] 11 mmol/L Normal 8-[address] [facility] Comment on above: Order Comment: Speci men Type: BLOOD SPECIMENOrdering Facility: [facility] Address: [address] [place], [place] [address] Performed By: #### 2 4323-8, 4498-2 ####[facility] LABCLIA [id number] [place] [id number] [place] AST [Catalytic activity/Vol] 23 U/L Normal 13-35 [facility] Comment on above: Order Comment: Speci men Type: BLOOD SPECIMENOrdering Facility: [facility] Address: [address] [place], [place] [address] Performed By: #### 2 4323-8, 4498-2 ####[facility] LABCLIA [id number] [place] [address] [place] Bilirubin [Mass/Vol] 0.3 mg/dL Normal 0.2-1.3 [facility] Comment on above: Order Comment: Speci men Type: BLOOD SPECIMENOrdering Facility: [facility] Address: [address] [place] [address] Performed By: #### 2 4323-8, 4498-2 ####[facility] LABIA [id number] [place] [address] [place] Calcium [Mass/Vol] 9.1 mg/dL Normal 8.5-10.2 [facility] Comment on above: Order Comment: Speci men Type: BLOOD SPECIMENOrdering Facility: [facility] Address: [address] [place] [address] Performed By: #### 2 4323-8, 4498-2 ####[facility] LABIA [id number] [place] [address] [place] Chloride [Moles/Vol] 103 mmol/L Normal 98-107 [facility] Comment on above: Order Comment: Speci men Type: BLOOD SPECIMENOrdering Facility: [facility] Address: [address] [place] [address] Performed By: #### 2 4323-8, 4498-2 ####[facility] LABIA [id number] [place] [address] [place] CO2 [Moles/Vol] 28 mmol/L Normal 22-30 [facility] Comment on above: Order Comment: Speci men Type: BLOOD SPECIMENOrdering Facility: [facility] Address: [address] [place], [place] [address] Performed By: #### 2 4323-8, 4498-2 ####[facility] LABCLIA [id number] [place] [id number] [place] Creatinine [Mass/Vol] 0.89 mg/dL Normal 0.58-0.[address] [facility] Comment on above: Order Comment: Octavio boateng Type: BLOOD SPECIMENOrdering Facility: [facility] Address: [address] [place] [address] Performed By: #### 2 4323-8, 4498-2 ####[facility] LABCLIA [id number] [place] [address] [place] Creatinine and Glomerular filtration rate.predicted panel (S/P/Bld) 82 mL/min/1.73m??? Normal >=60 [facility] Comment on above: Order Comment: Octavio boateng Type: BLOOD SPECIMENOrdering Facility: [facility] Address: [address] [place] [address] Result Comment: Dinora mated Glomerular Filtration Rate (eGFR) is calculated using the 2020 CKD-EPI creatinine equation. This equation utilizes serum creatinine, sex, and age as parameters. The creatinine assay has traceable calibration to isotope dilution-mass spectrometry. Refer to KDIGO guidelines for clinical interpretation. In patients with unstable renal function, e.g. those with acute kidney injury, the eGFR may not accurately reflect actual GFR. Performed By: #### 2 4323-8, 4498-2 ####[facility] LABCLIA [id number] [place] [address] [place] Glucose [Mass/Vol] 72 mg/dL Low 74-99 [facility] Comment on above: Order Comment: Octavio boateng Type: BLOOD SPECIMENOrdering Facility: [facility] Address: [address] [place] [address] Result Comment: The [place] [employer] (ADA) provides guidance for cutoff values for fasting glucose and random glucose. The ADA defines fasting as no caloric intake for at least 8 hours. Fasting plasma glucose results between 100 to 125 mg/dL indicate increased risk for diabetes (prediabetes). Fasting plasma glucose results greater than or equal to 126 mg/dL meet the criteria for diagnosis of diabetes. In the absence of unequivocal hyperglycemia, results should be confirmed by repeat testing. In a patient with classic symptoms of hyperglycemia or hyperglycemic crisis, random plasma glucose results greater than or equal to 200 mg/dL meet the criteria for diagnosis of diabetes. Reference: Standards of Medical Care in Diabetes 2016, [place] [employer]. Diabetes Care. 2016.39(Suppl 1). Performed By: #### 2 4323-8, 4498-2 ####[facility] LABCLIA [id number] [address] [address] [place] Potassium [Moles/Vol] 4.0 mmol/L Normal 3.7-5.[address] [facility] Comment on above: Order Comment: Speci men Type: BLOOD SPECIMENOrdering Facility: [facility] Address: [address] [place] [id number] Performed By: #### 2 4323-8, 4498-2 ####[facility] LABCLIA [id number] [place] [address] [place] Protein [Mass/Vol] 7.0 g/dL Normal 6.3-8.0 [facility] Comment on above: Order Comment: Speci men Type: BLOOD SPECIMENOrdering Facility: [facility] Address: [address] [place] [id number] Performed By: #### 2 4323-8, 449-2 ####[facility] LABCLIA [id number] [place] [address] [place] Sodium [Moles/Vol] 142 mmol/L Normal 136-144 [facility] Comment on above: Order Comment: Speci men Type: BLOOD SPECIMENOrdering Facility: [facility] Address: [address] [place] [address] Performed By: #### 2 4323-8, 4498-2 ####[facility] LABCLIA [id number] [address] [address] [place] Urea nitrogen [Mass/Vol] 10 mg/dL Normal 7-21 [facility] Comment on above: Order Comment: Speci men Type: BLOOD SPECIMENOrdering Facility: [facility] Address: [address] [place] [address] Performed By: #### 2 4323-8, 4498-2 ####[facility] LABCLIA [id number] [facility] [id number] [id number] [place] INGESTION CHALLENGE TESTon 1 05-03-2023 Medication Ingestion Challenge: Amoxicillin Patient identified by name and date. Jacinta Green M.D. in to see patient. Informed consent signed and order received. 1523 Dose 1: 0.5 ml - No reaction, no complaints. 1550 VSS, no complaints 1555 Dose 2: 4.5 ml- No reaction, no complaints. Jacinta Green M.D. , evaluated and educated patient and family member(s) prior to discharge from office. Patient discharged from office at 1635 in stable condition with no concerns. [facility] No Panel InformationOrdered By: Nidia Hurst on 03-02-2024 [facility] Visit Reporton 1 04-16-2023 Urgent Care Visit Report [facility] [address], [address] [place] [address] OFFICE VISIT Date of Service: 02/15/24 MR#: [id number] Acct: [id number] Name: MICHAELLE MAYS Sincere Rep #: [id number] : 1980 Provider: SHIN Power Age/Sex: 43/F Location: [facility] Status: Signed Intake Vital Signs 12/03/23 02:42 02/15/24 11:17 Height 5 ft 5 in 5 ft 5 in Weight: 269 lb BMI 44.7 BP 138/84 H Blood Pressure Location Lt brachial Position Sitting Respiration 18 Pulse 85 Pulse Source Monitor Temp 98.6 F Temp Source Oral Pulse Oximetry (%) 98 Oxygen Delivery Method room air Intake Visit Reasons: R KNEE PAIN/W/O INJURY Chief Complaint: Right knee pain without injury 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 Is patient in pain?: Yes Allergies amoxicillin (From Augmentin) Allergy (Intermediate, Verified 02/15/24 11:26) Upset Stomach clavulanic acid (From Augmentin) Allergy (Intermediate, Verified 02/15/24 11:26) Upset Stomach HAROLDO Inhibitors Allergy (Unknown, Verified 02/15/24 11:26) PT UNSURE OF REACTION Penicillins (PCN) Allergy (Verified 02/15/24 11:18) Hives Medications ???Medication ???Instructions ???Recorded ???Confirmed ???Type doxepin 25 mg capsule 25 mg PO QHS 12/03/23 02/15/24 History famotidine 20 mg tablet (Pepcid) 20 mg PO BID #10 tabs 12/03/23 02/15/24 Rx montelukast 10 mg tablet 10 mg PO QHS 12/03/23 02/15/24 History (Singulair) cetirizine 10 mg tablet 10 mg PO QDAY 02/15/24 02/15/24 History cyclobenzaprine 10 mg tablet 10 mg PO HS PRN muscle spasm #14 02/15/24 02/15/24 Rx tabs fluticasone propionate 50 intranasal 02/15/24 02/15/24 History mcg/actuation nasal spray,suspension levonorgestrel 0.15 mg-ethinyl 1 tab PO QDAY 02/15/24 02/15/24 History estradiol 0.03 mg tablet (Altavera (28)) methocarbamol 500 mg tablet 1,000 mg PO BID 02/15/24 02/15/24 History phentermine 37.5 mg tablet 37.5 mg PO QDAY 02/15/24 02/15/24 History Nurse's Note: onset of right knee pain while at work yesterday. previous xrays completed at [facility] confirmed bone on bone. Has recently restablished with Dr. Riggins and placed on medication for weight loss to help alleviate right hip and knee pain and to avoid surgery. Here today requiring work note. [facility] Medical History (Updated 02/15/24 @ 11:32 by SHIN Brock) Right hip pain Knee pain, right Angio-edema Surgical History Hx of cholecystectomy Social History Smoking Status: Former smoker HPI HPI Chief Complaint: Right knee pain without injury Details: MICHAELLE MAYS, is a 43 F who presents to the office today for evaluation due to chronic right hip/knee pain, stating she was told by her orthopod that she has, [id number]-[id number]-[id number] joints to both knees. No bilateral ankle complaints or low back pain. No caudal/radicular complaints. No abdominal pain/complaints. Topical Voltaren as well as oral ibuprofen and acetaminophen taken with minimal to no assist. No recent history of trauma to the same. No other associated symptoms and no other alleviating/aggravati ng factors. ROS Const Constitutional: Positive for other (as above) Exam Const General: cooperative, healthy appearing and no acute distress Orientation: alert and awake Resp Effort Inspection: normal respiratory effort and able to speak in complete sentences Cardio Rate: regular rate Pulses: radial pulses present Skin General: no rashes or lesions noted Neuro General: patient alert and patient awake Cognition: normal cognition Speech: speech normal Extrem Other: Right hip: FAROM with pain exacerbated upon right hip flexion to resistance to the anterior right hip/pelvic region. Right knee: Negative Luis and drawer and no palpable joint tenderness appreciated, FAROM. Right ankle: Unguarded FAROM and negative drawer Psych Appearance: grossly normal Mental Status: mental status grossly normal Mood: congruent mood Affect: normal affect Speech and Movement: speech and movement normal Attitude: cooperative Coding Level of Care Code Off vis,new,level 3 Diagnoses Right hip pain M25.551 Knee pain, right M25.561 Assessment and Plan Assessment and Plan (1) Right hip pain: Status: Acute (2) Knee pain, right: Status: Acute Plan: Patient refused radiographs upon offering. Continue Voltaren topical, acetaminophen [id number] as needed. Cyclobenzaprine as prescribed today. Work excuse offered at patient request. Follow-up with PCP or orthopedics as previously arranged, ED sooner should symptoms worsen or any other concerns develop. Patient states acknowledging understanding of the above. This note was generated with ENOVIXation software. It nandini (more content not included)... Normal [facility] HIP, UNI W/ Pelvis 2-3 Views on 02-10-2024 HIP, UNI W/ Pelvis 2-3 Views [facility] Imaging Services [address] [place] [address] HIP, UNI W/ Pelvis 2-3 Views MR#: [id number] Acct: [id number] Name: TABATHAMICHAELLE Sincere Rep #: [id number] : 1980 F 43 From: John Murphy MD PCP: Dr. Wild Riggins MD Status: REG CLI Study: HIP, UNI W/ Pelvis 2-3 Views Date of Exam: Exam# [id number] Ordering Dr: Wild Riggins MD [id number] STUDY: X-RAY - PELVIS AND RIGHT HIP REASON FOR EXAM: Female, 43 years old. Hip pain TECHNIQUE: 3 views of the pelvis and hip. COMPARISON: None. FINDINGS: There is a non-specific bowel gas pattern. Normal visualized soft tissue structures. Normal bilateral iliac wings, sacroiliac joints and visualized sacrum. Normal bilateral superior and inferior pubic rami. Normal pubic symphysis. Normal bilateral ischial tuberosities. Normal visualized femoral head. Normal acetabulum. Normal hip joint. RAD/HIP, UNI W/ Pelvis 2-3 Views IMPRESSION: Normal x-ray examination of the pelvis and hip. MRI may be useful for more definitive evaluation if clinically warranted Electronically Signed: John Murphy MD at 22:58 EST Reading Location ID and State: [address] [place] [address] Tel , Service support , CC: Dr. Wild Riggins MD Leak Hunter: Signed Normal [facility] Estrogen, Total, Serumon ESTROGENS,TOTAL 45 pg/mL Normal . [facility] Comment on above: Order Comment: Order Date: 01/25/24Order Info: 2254-1 - ESTN Result Comment: Prep ubertal < 40 Female Cycle: 1-10 Days 16 - 328 11-20 Days 34 - 501 21-30 Days 48 - 350 Post-Menopausal 40 - 244 Performed at: [address] [id number] Assistant Program Director: Cara Lopez MD, Phone: [phone] Performed By: #### L 501.9520, L100.0100, L500.4100, L500.4050, L3100.5055, L3400.0200, L506.1000 ####[facility] [address] [place], [address] Hemoglobin A1con 02-01-2024 HbA1c (Bld) [Mass fraction] 5.7 % High 3.8-5.6 [facility] Comment on above: Order Comment: FLORA Olivera ADD A1C TO BLOOD DRAWN 01/31/24 PER Result Comment: Norm al < 5.7 % Prediabetic 5.7 - 6.4 % Diabetic >or= 6.5 % Please note range changes. Performed By: #### L 501.9985, L801.2606 #### [facility] [address] [place], [place], [id number] PROGESTERONE 4317on 02-01-20 24 PROGESTERONE 0.3 ng/mL Normal . [facility] Comment on above: Order Comment: N Result Comment: Foll icular phase 0.1 - 0.9 Luteal phase 1.8 - 23.9 Ovulation phase 0.1 - 12.0 First trimester 11.0 - 44.3 Second trimester 25.4 - 83.3 Third trimester 58.7 - 214.0 Postmenopausal 0.0 - 0.1 Performed at: [address] [id number] Assistant Program Director: Demarcus Zamora PhD, Phone: [phone] Performed By: #### L 501.9985, L80.2607 #### [facility] [address] [place], [place], [id number] CBC W/Diff, Automatedon 01-20 Absolute Lymph 2.64 X10 3/uL Normal 0.83-4.51 [facility] Comment on above: Order Comment: Order Date: 01/25/24 Order Info: 0184-1 - CBCD Performed By: #### L 501.9520, L100.0100, L500.4100, L500.4050, L3100.5055, L3400.0200, L506.1000 #### [facility] [address] [place], [address] Absolute Neut 6.8 X10 3/uL Normal 2.0-7.7 [facility] Comment on above: Order Comment: Order Date: 01/25/24 Order Info: 0184-1 - CBCD Performed By: #### L 501.9520, L100.0100, L500.4100, L500.4050, L3100.5055, L3400.0200, L506.1000 #### [facility] [address] [place], [place], [phone] (725) Basophils/100 WBC (Bld) 0.7 % Normal 0-[address] [facility] Comment on above: Order Comment: Order Date: 01/25/24 Order Info: 0184- - CBCD Performed By: #### L 501.9520, L100.0100, L500.4100, L500.4050, L3100.5055, L3400.0200, L506.1000 #### [facility] [address] [place], [place], [phone] (809) Eosinophils/100 WBC (Bld) 2.1 % Normal 0-5 [facility] Comment on above: Order Comment: Order Date: 01/25/24 Order Info: 0184-1 - CBCD Performed By: #### L 501.9520, L100.0100, L500.4100, L500.4050, L3100.5055, L3400.0200, L506.1000 #### [facility] [address] [place], [place], [phone] (758) Erythrocyte distribution width (RBC) [Ratio] 13.0 % Normal 11.6-14.6 [facility] Comment on above: Order Comment: Order Date: 01/25/24 Order Info: 0184-1 - CBCD Performed By: #### L 501.9520, L100.0100, L500.4100, L500.4050, L3100.5055, L3400.0200, L506.1000 #### [facility] [address] [place], [address] Hematocrit (Bld) [Volume fraction] 45.3 % Normal 37-47 [facility] Comment on above: Order Comment: Order Date: 01/25/24 Order Info: 0184-1 - CBCD Performed By: #### L 501.9520, L100.0100, L500.4100, L500.4050, L3100.5055, L3400.0200, L506.1000 #### [facility] [address] [place], [address] Hemoglobin (Bld) [Mass/Vol] 14.8 g/dL Normal 12.0-15.0 [facility] Comment on above: Order Comment: Order Date: 01/25/24 Order Info: 0184-1 - CBCD Performed By: #### L 501.9520, L100.0100, L500.4100, L500.4050, L3100.5055, L3400.0200, L506.1000 #### [facility] [address] [place], [address] IG% 0.400 Normal 0.0-0.9 [facility] Comment on above: Order Comment: Order Date: 01/25/24 Order Info: 0184-1 - CBCD Result Comment: IG% - Immature Granulocytes (promyelocytes, myelocytes and metamyelocytes) > 1% indicates that a LEFT SHIFT is Present. Performed By: #### L 501.9520, L100.0100, L500.4100, L500.4050, L3100.5055, L3400.0200, L506.1000 #### [facility] [address] [place], [address] Lymphocytes/100 WBC (Bld) 25.2 % Normal 19-41 [facility] Comment on above: Order Comment: Order Date: 01/25/24 Order Info: 0184- - CBCD Performed By: #### L 501.9520, L100.0100, L500.4100, L500.4050, L3100.5055, L3400.0200, L506.1000 #### [facility] [address] [place], [address] MCH (RBC) [Entitic mass] 31.4 pg Normal 27.0-32.0 [facility] Comment on above: Order Comment: Order Date: 01/25/24 Order Info: 0184- - CBCD Performed By: #### L 501.9520, L100.0100, L500.4100, L500.4050, L3100.5055, L3400.0200, L506.1000 #### [facility] [address] [place], [address] MCHC (RBC) [Mass/Vol] 32.7 g/dL Normal 32-36 [facility] Comment on above: Order Comment: Order Date: 01/25/24 Order Info: 0184- - CBCD Performed By: #### L 501.9520, L100.0100, L500.4100, L500.4050, L3100.5055, L3400.0200, L506.1000 #### [facility] [address] [place], [address] MCV (RBC) [Entitic vol] 96.0 fL Normal 81-[address] [facility] Comment on above: Order Comment: Order Date: 01/25/24 Order Info: 0184-1 - CBCD Performed By: #### L 501.9520, L100.0100, L500.4100, L500.4050, L3100.5055, L3400.0200, L506.1000 #### [facility] [address] [place], [address] Monocytes/100 WBC (Bld) 6.7 % Normal 0-[address] [facility] Comment on above: Order Comment: Order Date: 01/25/24 Order Info: 0184-1 - CBCD Performed By: #### L 501.9520, L100.0100, L500.4100, L500.4050, L3100.5055, L3400.0200, L506.1000 #### [facility] [address] [place], [address] Neutrophils/100 WBC (Bld) 64.9 % Normal 47-70 [facility] Comment on above: Order Comment: Order Date: 01/25/24 Order Info: 0184-1 - CBCD Performed By: #### L 501.9520, L100.0100, L500.4100, L500.4050, L3100.5055, L3400.0200, L506.1000 #### [facility] [address] [place], [address] Nucleated RBC (Bld) [#/Vol] 0 10*3/uL Normal 0-5 [facility] Comment on above: Order Comment: Order Date: 01/25/24 Order Info: 0184-1 - CBCD Performed By: #### L 501.9520, L100.0100, L500.4100, L500.4050, L3100.5055, L3400.0200, L506.1000 #### [facility] [address] [place], [address] Platelet mean volume (Bld) [Entitic vol] 10.0 fL Normal 6.2-12.0 [facility] Comment on above: Order Comment: Order Date: 01/25/24 Order Info: 0184-1 - CBCD Performed By: #### L 501.9520, L100.0100, L500.4100, L500.4050, L3100.5055, L3400.0200, L506.1000 #### [facility] [address] [place], [address] Platelets (Bld) [#/Vol] 376 10*3/uL Normal 150-450 [facility] Comment on above: Order Comment: Order Date: 01/25/24 Order Info: 0184-1 - CBCD Performed By: #### L 501.9520, L100.0100, L500.4100, L500.4050, L3100.5055, L3400.0200, L506.1000 #### [facility] [address] [place], [address] RBC (Bld) [#/Vol] 4.72 10*6/uL Normal 4.2-5.4 [facility] Comment on above: Order Comment: Order Date: 01/25/24 Order Info: 0184-1 - CBCD Performed By: #### L 501.9520, L100.0100, L500.4100, L500.4050, L3100.5055, L3400.0200, L506.1000 #### [facility] [address] [place], [place], [phone] RDW SD 46.2 fl High 35.1-43.9 [facility] Comment on above: Order Comment: Order Date: 01/25/24 Order Info: 0184-1 - CBCD Performed By: #### L 501.9520, L100.0100, L500.4100, L500.4050, L3100.5055, L3400.0200, L506.1000 #### [facility] [address] [place], [address] WBC (Bld) [#/Vol] 10.5 10*3/uL Normal 4.4-11.0 [facility] Comment on above: Order Comment: Order Date: 01/25/24 Order Info: 0184-1 - CBCD Performed By: #### L 501.9520, L100.0100, L500.4100, L500.4050, L3100.5055, L3400.0200, L506.1000 #### [facility] [address] [place], [place], [phone] Comprehensive Metabolic Prof [facility] 01-31-2024 Albumin [Mass/Vol] 3.2 g/dL Normal 3.2-5.0 [facility] Comment on above: Order Comment: Order Date: 01/25/24 Order Info: 785-1 - CMP Order Info: - LIPID Order Info: 3 - TSH Order Info: 53-1 - FSHLH Performed By: #### L 501.9520, L100.0100, L500.4100, L500.4050, L3100.5055, L3400.0200, L506.1000 #### [facility] [address] [place], [address] Albumin/Globulin [Mass ratio] 0.8 {ratio} Low 0.9-2.4 [facility] Comment on above: Order Comment: Order Date: 01/25/24 Order Info: 785- - CMP Order Info: - LIPID Order Info: 3015-05 - TSH Order Info: 552-03 - FSHLH Performed By: #### L 501.9520, L100.0100, L500.4100, L500.4050, L3100.5055, L3400.0200, L506.1000 #### [facility] [address] [place], [address] ALK P 80 U/L Normal 45-117 [facility] Comment on above: Order Comment: Order Date: 01/25/24 Order Info: 785- - CMP Order Info: - LIPID Order Info: 3015-05 - TSH Order Info: 53-1 - FSHLH Performed By: #### L 501.9520, L100.0100, L500.4100, L500.4050, L3100.5055, L3400.0200, L506.1000 #### [facility] [address] [place], [address] ALT [Catalytic activity/Vol] 19 U/L Normal 13-56 [facility] Comment on above: Order Comment: Order Date: 01/25/24 Order Info: 0786-1 - CMP Order Info: - LIPID Order Info: 3015-05 - TSH Order Info: 552-03 - FSHLH Performed By: #### L 501.9520, L100.0100, L500.4100, L500.4050, L3100.5055, L3400.0200, L506.1000 #### [facility] [address] [place], [place], [phone] AST [Catalytic activity/Vol] 13 U/L Low 15-37 [facility] Comment on above: Order Comment: Order Date: 01/25/24 Order Info: 785-03 - CMP Order Info: - LIPID Order Info: 3015-05 - TSH Order Info: 552-03 - FSHLH Performed By: #### L 501.9520, L100.0100, L500.4100, L500.4050, L3100.5055, L3400.0200, L506.1000 #### [facility] [address] [place], [place], [id number] Bilirubin [Mass/Vol] 0.30 mg/dL Normal 0.20-1.00 [facility] Comment on above: Order Comment: Order Date: 01/25/24 Order Info: 785-03 - CMP Order Info: - LIPID Order Info: 3015-05 - TSH Order Info: 552-03 - FSHLH Result Comment: For patients on eltrombopag therapy, use of [place] TBIL is not recommended. Performed By: #### L 501.9520, L100.0100, L500.4100, L500.4050, L3100.5055, L3400.0200, L506.1000 #### [facility] [address] [place], [place], [phone] BUN/CRE 14.3 RATIO Normal 10-20 [facility] Comment on above: Order Comment: Order Date: 01/25/24 Order Info: 785-03 - CMP Order Info: - LIPID Order Info: 3015-05 - TSH Order Info: 53-1 - FSHLH Performed By: #### L 501.9520, L100.0100, L500.4100, L500.4050, L3100.5055, L3400.0200, L506.1000 #### [facility] [address] [place], [place], [phone] CA,Total 8.6 mg/dL Normal 8.5-10.1 [facility] Comment on above: Order Comment: Order Date: 01/25/24 Order Info: 86- - CMP Order Info: - LIPID Order Info: 3 - TSH Order Info: 552-1 - FSHLH Performed By: #### L 501.9520, L100.0100, L500.4100, L500.4050, L3100.5055, L3400.0200, L506.1000 #### [facility] [address] [place], [place], [phone] Chloride [Moles/Vol] 109 mmol/L High 98-107 [facility] Comment on above: Order Comment: Order Date: 01/25/24 Order Info: 785-03 - CMP Order Info: - LIPID Order Info: 3015-05 - TSH Order Info: 53-1 - FSHLH Performed By: #### L 501.9520, L100.0100, L500.4100, L500.4050, L3100.5055, L3400.0200, L506.1000 #### [facility] [address] [place], [place], [phone] CO2 [Moles/Vol] 24.0 mmol/L Normal 21.0-32.0 [facility] Comment on above: Order Comment: Order Date: 01/25/24 Order Info: 86-1 - CMP Order Info: 59022-3 - LIPID Order Info: 3016-3 - TSH Order Info: 53-1 - FSHLH Performed By: #### L 501.9520, L100.0100, L500.4100, L500.4050, L3100.5055, L3400.0200, L506.1000 #### [facility] [address] [place], [address] Creatinine [Mass/Vol] 1.05 mg/dL High 0.55-1.02 [facility] Comment on above: Order Comment: Order Date: 01/25/24 Order Info: 785- - CMP Order Info: - LIPID Order Info: 3 - TSH Order Info: 552-03 - FSHLH Result Comment: The validity of the calculated GFR GFRAA in patients over 70 years has not been determined. Clinical correlation is essential. Performed By: #### L 501.9520, L100.0100, L500.4100, L500.4050, L3100.5055, L3400.0200, L506.1000 #### [facility] [address] [place], [place], [phone] EST GFR - AA 73 mL/min Normal >60 [facility] Comment on above: Order Comment: Order Date: 01/25/24 Order Info: 785-03 - CMP Order Info: - LIPID Order Info: 3015-05 - TSH Order Info: 552-03 - FSHLH Result Comment: Afri can [place] GFR Calc Performed By: #### L 501.9520, L100.0100, L500.4100, L500.4050, L3100.5055, L3400.0200, L506.1000 #### [facility] [address] [place], [address] GAP 7 Normal 5-15 [facility] Comment on above: Order Comment: Order Date: 01/25/24 Order Info: 785-03 - CMP Order Info: - LIPID Order Info: 3015-05 - TSH Order Info: 552-03 - FSHLH Performed By: #### L 501.9520, L100.0100, L500.4100, L500.4050, L3100.5055, L3400.0200, L506.1000 #### [facility] [address] [place], [place], [address] GFR/1.73 sq M.predicted among non-blacks MDRD (S/P/Bld) [Vol rate/Area] 60 mL/min/{1.73_m2} Normal >60 [facility] Comment on above: Order Comment: Order Date: 01/25/24 Order Info: 07- - CMP Order Info: - LIPID Order Info: 3 - TSH Order Info: 53- - FSHLH Result Comment: Non- GFR Calc Performed By: #### L 501.9520, L100.0100, L500.4100, L500.4050, L3100.5055, L3400.0200, L506.1000 #### [facility] [address] [facility] [place], [address] Globulin (S) [Mass/Vol] 4.2 g/dL Normal 2.2-4.[address] [facility] Comment on above: Order Comment: Order Date: 01/25/24 Order Info: 785-03 - CMP Order Info: - LIPID Order Info: 3015-05 - TSH Order Info: 552-03 - FSHLH Performed By: #### L 501.9520, L100.0100, L500.4100, L500.4050, L3100.5055, L3400.0200, L506.1000 #### [facility] [address] [facility] [place], [address] Glucose [Mass/Vol] 121 mg/dL High 74-106 [facility] Comment on above: Order Comment: Order Date: 01/25/24 Order Info: 07 - CMP Order Info: - LIPID Order Info: 3 - TSH Order Info: 53-1 - FSHLH Result Comment: Fast ing Glucose result from 100 to 125 mg/dL suggests IMPAIRED HOMEOSTASIS per A.D.A. criteria. Performed By: #### L 501.9520, L100.0100, L500.4100, L500.4050, L3100.5055, L3400.0200, L506.1000 #### [facility] [address] [place], [address] Potassium [Moles/Vol] 3.7 mmol/L Normal 3.5-5.1 [facility] Comment on above: Order Comment: Order Date: 01/25/24 Order Info: 785-1 - CMP Order Info: 59111-5 - LIPID Order Info: 3015-3 - TSH Order Info: 53-1 - FSHLH Performed By: #### L 501.9520, L100.0100, L500.4100, L500.4050, L3100.5055, L3400.0200, L506.1000 #### [facility] [address] [place], [address] Sodium [Moles/Vol] 139 mmol/L Normal 136-145 [facility] Comment on above: Order Comment: Order Date: 01/25/24 Order Info: 785- - CMP Order Info: - LIPID Order Info: 3015-05 - TSH Order Info: 53-1 - FSHLH Performed By: #### L 501.9520, L100.0100, L500.4100, L500.4050, L3100.5055, L3400.0200, L506.1000 #### [facility] [address] [place], [address] T PROT 7.4 g/dL Normal 6.4-8.2 [facility] Comment on above: Order Comment: Order Date: 01/25/24 Order Info: 785-1 - CMP Order Info: 62373-6 - LIPID Order Info: 3 - TSH Order Info: 0553-1 - FSHLH Performed By: #### L 501.9520, L100.0100, L500.4100, L500.4050, L3100.5055, L3400.0200, L506.1000 #### [facility] [address] [place], [address] Urea nitrogen [Mass/Vol] 15 mg/dL Normal 7-18 [facility] Comment on above: Order Comment: Order Date: 01/25/24 Order Info: 785- - CMP Order Info: - LIPID Order Info: 3 - TSH Order Info: 552-03 - FSHLH Performed By: #### L 501.9520, L100.0100, L500.4100, L500.4050, L3100.5055, L3400.0200, L506.1000 #### [facility] [address] [facility] [place], [address] FSH and LHon 01-31-2024 FSH 22.7 mIU/mL Normal [facility] Comment on above: Order Comment: Order Date: 01/25/24Order Info: 785-03 - CMPOrder Info: - LIPIDOrder Info: 3015-05 - TSHOrder Info: 552-03 - FSHLH Result Comment: NORMAL REFERENCE RANGES FEMALE FOLLICULAR 2.3 - 12.6 mIU/mL MID-CYCLE PEAK 5.2 - 17.5 mIU/mL LUTEAL 1.7 - 12.9 mIU/mL POST-MENOPAUSAL ON MHT 5.9 - 72.8 mIU/mL NOT ON MHT 12.7 - 132.2 mlU/mL MALE 0.7 - 10.8 mIU/mL Performed By: #### L 501.9520, L100.0100, L500.4100, L500.4050, L3100.5055, L3400.0200, L506.1000 ####[facility] [address] [facility] [place], [address] LH 15.6 mIU/mL Normal [facility] Comment on above: Order Comment: Order Date: 01/25/24Order Info: 785-03 - CMPOrder Info: - LIPIDOrder Info: 3 - TSHOrder Info: 53-1 - FSHLH Result Comment: NORMAL REFERENCE RANGES FEMALE FOLLICULAR 1.9 - 26.2 mIU/mL MID-CYCLE PEAK 22.8 - 76.1 mIU/mL LUTEAL 0.6 - 16.6 mIU/mL POST-MENOPAUSAL ON MHT 1.1 - 52.4 mIU/mL NOT ON MHT 8.6 - 61.8 mIU/mL MALE 1.2 - 10.6 mIU/mL Performed By: #### L 501.9520, L100.0100, L500.4100, L500.4050, L3100.5055, L3400.0200, L506.1000 ####[facility] [address] [place], [address] Lipid Profileon 01-31-2024 Cholesterol [Mass/Vol] 207 mg/dL High 200 [facility] Comment on above: Order Comment: Order Date: 01/25/24 Order Info: 0786-1 - CMP Order Info: 13645-1 - LIPID Order Info: 3016-3 - TSH Order Info: 552-1 - FSHLH Result Comment: <200 mg/dL Desirable 200-240 mg/dL Borderline >240 mg/dL High Risk Performed By: #### L 501.9520, L100.0100, L500.4100, L500.4050, L3100.5055, L3400.0200, L506.1000 #### [facility] [address] [place], [address] Cholesterol in HDL [Mass/Vol] 54 mg/dL Normal [facility] Comment on above: Order Comment: Order Date: 01/25/24 Order Info: 0786-1 - CMP Order Info: 32857-4 - LIPID Order Info: 3016-3 - TSH Order Info: 0553-1 - FSHLH Result Comment: The drugs N-Acetylcysteine and Metamizole may falsely depress this assay. Reference Range HDL <40 mg/dL Low HDL Cholesterol HDL >or= 60 mg/dL High HDL Cholesterol Performed By: #### L 501.9520, L100.0100, L500.4100, L500.4050, L3100.5055, L3400.0200, L506.1000 #### [facility] [address] [place], [address] Cholesterol in LDL [Mass/Vol] 133 mg/dL High 0-130 [facility] Comment on above: Order Comment: Order Date: 01/25/24 Order Info: 785-03 - CMP Order Info: - LIPID Order Info: 3015-05 - TSH Order Info: 552-03 - FSHLH Performed By: #### L 501.9520, L100.0100, L500.4100, L500.4050, L3100.5055, L3400.0200, L506.1000 #### [facility] [address] [place], [address] Cholesterol in VLDL [Mass/Vol] 20 mg/dL Normal 5-40 [facility] Comment on above: Order Comment: Order Date: 01/25/24 Order Info: 785-03 - CMP Order Info: - LIPID Order Info: 3015-05 - TSH Order Info: 552-03 - FSHLH Performed By: #### L 501.9520, L100.0100, L500.4100, L500.4050, L3100.5055, L3400.0200, L506.1000 #### [facility] [address] [place], [place], [phone] ([phone] Triglyceride [Mass/Vol] 102 mg/dL Normal [facility] Comment on above: Order Comment: Order Date: 01/25/24 Order Info: 785-03 - CMP Order Info: - LIPID Order Info: 3015-05 - TSH Order Info: 552-03 - FSHLH Result Comment: The drugs N-Acetylcysteine and Metamizole may falsely depress this assay. Serum Triglycerides Reference Interval Normal <150 mg/dL Borderline high 150 - 199 mg/dL High 200 - 499 mg/dL Very High > or = 500 mg/dL Performed By: #### L 501.9520, L100.0100, L500.4100, L500.4050, L3100.5055, L3400.0200, L506.1000 #### [facility] [address] [place], [address] Thyroid Stim Hormone (TSH)on 01-31-2024 TSH 2.690 uIU/mL Normal 0.358-3.740 [facility] Comment on above: Order Comment: Order Date: 01/25/24Order Info: 0786-1 - CMPOrder Info: 73937-4 - LIPIDOrder Info: 3016-3 - TSHOrder Info: 0553-1 - FSHLH Performed By: #### L 501.9520, L100.0100, L500.4100, L500.4050, L3100.5055, L3400.0200, L506.1000 ####[facility] [address] [place], [place], [id number] Vitamin D,25 Hydroxyon 01-30 Vitamin D 25-OH 44.4 ng/mL Normal [facility] Comment on above: Order Comment: Order Date: 01/25/24 Order Info: 15264-0 - VITD25 Result Comment: Anastasia min D 25(OH) Status Range Deficiency <20 ng/mL (50nmol/L) Insufficiency 20 - 30 ng/mL (50 - 75 nmol/L) Sufficiency 30 - 100 ng/mL (75 - 250 nmol/L) Toxicity >100 ng/mL (>250 nmol/L) Performed By: #### L 501.9520, L100.0100, L500.4100, L500.4050, L3100.5055, L3400.0200, L506.1000 #### [facility] [address] [place], [place], [id number] CNOVon 01-14-2024 CNOV Office Visit ([facility] ) MICHAELLE MAYS ([id number]) 1980 F Date Time Provider Department 01/14/24 10:45 AM MERLYN MEDEL WSTR During your visit today, we recorded the following information about you: Temperature Pulse Respiration Blood pressure 98.1 degrees 86/minute 18/minute 119/84 Weight Last Period 123 kg 01/03/24 Merlyn Medel, GUILLERMINA 01/14/2024 12:06 PM Signed This note was created using IMANIN. Gaby Mays is a 43 year old female. HPI Patient presents with nasal congestion, headache, sinus pressure right ear pain for 4 days. She is also had a cough. No vomiting. She has had some diarrhea. She tried a sinus pill yesterday at work which seemed to help some. She denies chest pain or shortness of breath. She did do a home COVID test yesterday which was negative. Review of Systems Constitutional: Negative for fever. HENT: Positive for congestion, ear pain, rhinorrhea, sinus pressure and sore throat. Negative for ear discharge. Respiratory: Positive for cough. Negative for shortness of breath and wheezing. Cardiovascular: Negative. Gastrointestinal: Positive for diarrhea. Negative for abdominal pain, nausea and vomiting. Genitourinary: Negative. Musculoskeletal: Negative. All other systems reviewed and are negative. 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 84 tablet 4 montelukast (SINGULAIR) 10 mg tablet take 1 tablet by mouth everyday at bedtime 90 tablet 2 doxepin capsule 25 mg Take 1 capsule by mouth daily at bedtime. 90 capsule 3 fluticasone (FLONASE) 50 mcg/actuation nasal spray Use 2 Sprays in each nostril once daily. Rinse mouth after use. 1 Each 0 cetirizine (ZYRTEC) 10 mg tablet Take 1 tablet by mouth once daily for 7 days. 7 tablet 0 No current facility-administered medications for this visit. PAST SURGICAL HISTORY Procedure Laterality Date INDUCED HX 2009 LAPAROSCOPY SURG CHOLECYSTECTOMY 2013 Cholecystectomy, lap PAST SURGICAL HISTORY OF 1998 vaginal wart removal VAGINOSCOPY 2017 FAMILY HISTORY Problem Relation Age of Onset other (skin Cancer) Mother on face, melanoma Stroke Maternal Grandmother Cancer Maternal Grandfather throat Hypertension Maternal Grandfather Social History Tobacco Use Smoking status: Former Current packs/day: 0.00 Average packs/day: 0.5 packs/day for 8.0 years (4.0 ttl pk-yrs) Types: Cigarettes Start date: 08/29/2004 Quit date: 08/29/2012 Years since quittin.3 Smokeless tobacco: Never Vaping Use Vaping status: Never Used Substance Use Topics Alcohol use: Yes Comment: rarely Drug use: No Objective BP 119/84 Pulse 86 Temp 36.7 ?C (98.1 ?F) Resp 18 Wt 123 kg (271 lb 2.7 oz) LMP 01/03/2024 (Exact Date) SpO2 98% BMI 43.58 kg/m? Physical Exam Vitals reviewed. Constitutional: Appearance: Normal appearance. HENT: Head: Normocephalic and atraumatic. Right Ear: Ear canal and external ear normal. Left Ear: Tympanic membrane, ear canal and external ear normal. Ears: Comments: Serous appearing right middle ear effusion Nose: Congestion present. Mouth/Throat: Mouth: Mucous membranes are moist. Pharynx: Oropharynx is clear. Cardiovascular: Rate and Rhythm: Normal rate and regular rhythm. Heart sounds: Normal heart sounds. Pulmonary: Effort: Pulmonary effort is normal. Breath sounds: Normal breath sounds. Musculoskeletal: Cervical back: Neck supple. Lymphadenopathy: Cervical: No cervical adenopathy. Skin: General: Skin is warm and dry. Findings: No rash. Neurological: Mental Status: She is alert. Assessment and Plan ASSESSMENT/PLAN: 1. Viral URI - ICD9: 465.9, ICD10: J06.9 (primary diagnosis) - Discussed viral etiology and rationale for treatment. - Symptomatic treatment with prn analgesia - Supportive care with fluids and rest 2. Sinus congestion - ICD9: 478.19, ICD10: R09.81 Flonase and Zyrtec to help with congestion. Follow-up if not improving over the next week. Patient agreeable. Merlyn Medel PA-C Allergies As of Date: 01/14/2024 Noted Allergy Reaction AHROLDO INHIBITORS 01/11/2014 18 - Angioedema BUPROPION/DIETHYLPROP ION 10/16/2002 2 - Rash Comments: Wellbutrin PENICILLINS 04/28/2001 Comments: augmentin Date Reviewed: 01/14/2024 Reviewed by: Lupe Daniels LPN - Fully Assessed Reason for Visit: Pain, Sinus [857] Cmt: Nasal congestion, headache, sinus pressure, ear pressure, cough x 4 days Primary Visit Dilcia (more content not included)... [facility] CNOVon 12-30-2023 CNOV Office Visit (UCWSTR ) MICHAELLE MAYS ([id number]) 1980 F Date Time Provider Department 12/30/23 11:15 AM ESTELITA RIVERA [facility] During your visit today, we recorded the following information about you: Temperature Pulse Respiration Blood pressure 97.8 degrees 79/minute 18/minute 147/85 Weight 123.1 kg Estelita Rivera PA 12/30/2023 11:29 AM Signed This note was created using Teach[employer]. Subjective Michaelle Mays is a 43 year old female. HPI 43-year-old female presents for neck pain starting this morning. Patient states she got up this morning was having posterior neck pain and it felt tight. She states she may have slept wrong because her cat sleeps on her pillow as well. She denies any fevers, sore throat. She denies any numbness or tingling the arms. No loss of bowel or bladder function. No fall or injury. She has not taken anything for the pain. No other complaint. 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 montelukast (SINGULAIR) 10 mg tablet take 1 tablet by mouth everyday at bedtime doxepin capsule 25 mg Take 1 capsule by mouth daily at bedtime. methocarbamol (ROBAXIN) 500 mg tablet Take 1 tablet by mouth every 6 hours as needed (Pain) for up to 3 days. FAMILY HISTORY Problem Relation Age of Onset other (skin Cancer) Mother on face, melanoma Stroke Maternal Grandmother Cancer Maternal Grandfather throat Hypertension Maternal Grandfather Social History Tobacco Use Smoking status: Former Current packs/day: 0.00 Average packs/day: 0.5 packs/day for 8.0 years (4.0 ttl pk-yrs) Types: Cigarettes Start date: 08/29/2004 Quit date: 08/29/2012 Years since quittin.3 Smokeless tobacco: Never Vaping Use Vaping status: Never Used Substance Use Topics Alcohol use: Yes Comment: rarely Drug use: No Review of Systems Constitutional: Negative for chills and fever. HENT: Negative for congestion, ear pain and sore throat. Respiratory: Negative for cough and shortness of breath. Cardiovascular: Negative for chest pain. Gastrointestinal: Negative for diarrhea and vomiting. Musculoskeletal: Positive for neck pain. Objective BP 147/85 Pulse 79 Temp 36.6 ?C (97.8 ?F) Resp 18 Wt 123.1 kg (271 lb 6.2 oz) LMP 06/20/2023 SpO2 98% BMI 43.62 kg/m? Physical Exam Vitals and nursing note reviewed. Constitutional: General: She is not in acute distress. Appearance: Normal appearance. She is not toxic-appearing. HENT: Mouth/Throat: Mouth: Mucous membranes are moist. Pharynx: Oropharynx is clear. Neck: Comments: Patient has normal ROM cervical spine. Normal chin to chest. She does have bilateral paraspinal muscle tenderness. No midline tenderness. Neck is supple. No lymphadenopathy. Normal sensation and strength upper extremities. Cardiovascular: Rate and Rhythm: Normal rate and regular rhythm. Pulmonary: Effort: Pulmonary effort is normal. Breath sounds: Normal breath sounds. Musculoskeletal: Cervical back: Normal range of motion and neck supple. No rigidity. Pain with movement and muscular tenderness present. No spinous process tenderness. Normal range of motion. Lymphadenopathy: Cervical: No cervical adenopathy. Skin: General: Skin is warm and dry. Neurological: Mental Status: She is alert. Assessment and Plan ASSESSMENT/PLAN: 1. Strain of neck muscle, initial encounter - ICD9: 847.0, ICD10: S16.1XXA -Suspect muscular strain. -Recommend rest, ice/heat, Tylenol/Motrin -Rx for Robaxin. Advised not to drive while taking this medication as it may cause drowsiness. -Follow-up if no improvement. -Red flag symptoms discussed Diagnosis and treatment plan were discussed and questions were answered to the patient's satisfaction. Pt acknowledged understanding of concepts and follow up plan. Specific signs and symptoms that would indicate the need for higher level of care were discussed in detail warranting prompt ER evaluation. SHIN George Allergies As of Date: 12/30/2023 Noted Allergy Reaction HAROLDO INHIBITORS 01/11/2014 18 - Angioedema BUPROPION/DIETHYLPROP ION 10/16/2002 2 - Rash Comments: Wellbutrin PENICILLINS 04/28/2001 Comments: augmentin Date Reviewed: 12/30/2023 Reviewed (more content not included)... Normal [facility] 12-06-2023 [facility] Telephone (AMAYA) MICHAELLE MAYS ([id number]) 1980 F Date Time Provider Department 12/06/23 CHENG MCDANIEL During your visit today, we recorded the following information about you: Selam Ordonez LPN 12/06/2023 4:15 PM Signed Patient seen in ED 12/02 for allergic reaction, Dr. Mcdaniel recommends 1 week ER follow up. Patient telephoned, message left to call back to schedule appointment. CJ Lopez Michelle, LPN 12/14/2023 10:29 AM Signed Patient following up with allergy regarding. Closing encounter. Selam Ordonez LPN Allergies As of Date: 12/06/2023 Noted Allergy Reaction HAROLDO INHIBITORS 01/11/2014 18 - Angioedema Comments: History of angioedema BUPROPION/DIETHYLPROP ION 10/16/2002 2 - Rash Comments: Wellbutrin PENICILLINS 04/28/2001 Comments: augmentin Date Reviewed: 09/20/2023 Reviewed by: Kathy Lindo MA - Fully Assessed Reason for Visit: Appointment [186] Prescriptions as of 12/14/2023 - famotidine (PEPCID) 20 mg tablet Take 1 tablet by mouth at bedtime as needed. - levonorgestrel-ethiny l estradiol (ALTAVERA, 28,) 0.15-0.03 mg per tab Take 1 tablet by mouth once daily. - montelukast (SINGULAIR) 10 mg tablet take 1 tablet by mouth everyday at bedtime - doxepin capsule 25 mg Take 1 capsule by mouth daily at bedtime. Problem List As Of Date 12/06/2023 Noted Resolved Adult BMI 30+ [AWL8505] 02/14/2013 07/02/2017 Angio-edema [T78.3XXA] 01/02/2014 Obesity, Class III, BMI >= 40 E66.01 [E66.01] 07/02/2017 Osteoarthritis [M19.90] 07/02/2017 Urticaria [L50.9] 04/26/2019 ASCUS of cervix with negative high risk HPV [R8*04/2019 Right knee pain [M25.561] 11/13/2019 Effusion of right knee [M25.461] 11/13/2019 Encounter Status:Closed by SELAM ORDONEZ on 12/14/23 [facility] Emergency Department Summary on 12-03-2023 Emergency Department Summary [facility] Medical Records Department [address] [place] [address] Emergency Department Summary 12/03/23 MR#: [id number] Acct: [id number] Name: MICHAELLE MAYS Sincere Rep #: [id number] : 1980 43 From: Tonie Peters DO PCP: Dr. Alexis Mcdaniel MD Status:DEP ER Location: ED HPI History of Present Illness Chief Complaint: Allergic Reaction Informant: patient Narrative Narrative: Patient is a 43-year-old female with reported history of angioedema (does not know the cause but states she gets angioedema intermittently over the last 10 years). Is not aware of having a history of hereditary angioedema. She states she woke up around midnight and noticed that her tongue felt swollen. She took 2 Benadryl and it did not go down which prompted her to come to the emergency room. She denies difficulty breathing. She denies any rash. She denies any abdominal cramping, nausea or vomiting. She denies any itching. She now feels that it is slightly starting to improve. States in the past steroids are helpful. She denies any new foods, medications or exposures to trigger it. [facility] Medical History Angio-edema Home Medications ???Medication ???Instructions ???Recorded ???Last Taken ???Type doxepin 25 mg capsule 25 mg PO QHS 12/03/23 Unknown History famotidine 20 mg tablet (Pepcid) 20 mg PO BID #10 tabs 12/03/23 Unknown Rx montelukast 10 mg tablet 10 mg PO QHS 12/03/23 12/02/23 History (Singulair) prednisone 20 mg tablet 40 mg (2 x 20 mg) PO DAILY #8 tabs 12/03/23 Unknown Rx Allergy/AdvReac Type Severity Reaction Status Date / Time Penicillins (PCN) Allergy Hives Verified 12/03/23 02:46 Family History no significant family his Surgical History Hx of cholecystectomy Social History Smoking Status: Former smoker ROS ROS ED Constitutional Constitutional ED: Denies chills or fever(s) ENT ENT ED: Reports other Details: Reports tongue swelling. Denies any swelling of her mouth or throat ; Denies sore throat Respiratory/Chest Respiratory/Chest: Denies cough or dyspnea Gastrointestinal Gastrointestinal: Denies abdominal pain, diarrhea, nausea or vomiting Musculoskeletal Musculoskeletal: Denies arthralgias or myalgias Integumentary Denies rash Allergic/Immunologic Allergic/Immunologic ED: Reports tongue swelling; Denies mouth swelling or urticaria EXAM Physical Exam Const Vital Signs: 12/03/23 02:42 Temperature 98.2 F Temperature Source Temporal Pulse Rate 104 H Respiratory Rate 18 Blood Pressure 150/82 H Blood Pressure Mean 104 Pulse Ox 98 Oxygen Delivery Method Room Air Positive well nourished and well developed General Appearance ED: well developed and NAD HEENT Reports moist mucous membranes HEENT Narrative: Normal oropharynx. Normal uvula. Questionable small amount of swelling on the right side of the tongue but no obvious angioedema on exam Eyes PERRL and EOMs intact bilaterally Neck supple Neck Narrative: No stridor Chest Wall inspection of chest normal Resp normal respiratory effort and clear to auscultation bilaterally Auscultation: Negative for wheezes or diminished lung sounds Cardio regular rate and regular rhythm GI normal to inspection, nondistended, normoactive bowel sounds and non-tender Auscultation: normoactive bowel sounds Extremity normal to inspection General Extremety ED: Negative for edema General Extremity: Negative for edema Neuro oriented x3 Sensorium / Orientation: alert Motor Exam: Negative for general weakness Psych mental status grossly normal Skin no rashes or lesions noted Skin Narrative: No urticaria appreciated MDM MDM MDM Narrative Medical decision making narrative: Patient evaluated for tongue swelling. 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 Denies any new medications or exposures. She feels that after taking 50 mg of Benadryl prior to arrival that her tongue swelling is a little improved now. I do not appreciate any significant angioedema. At this time I do not think she requires IV access, epinephrine, TXA or further Benadryl. Is given oral prednisone and placed on a burst of prednisone. She will continue take Benadryl as needed. Is also given a short course of Pepcid. Given return precautions. Is given a work note per her request. Patient agreeable this plan of care. Patient stable in the emergency room. Discharge Plan Triage Chief Complaint: Allergic Reaction ED Provider: Tonie Peters Dx/Rx/DC Orders Clinical Impression: Mild tongue swelling, History of angioedema Instructions: ED Angioedema P (more content not included)... Normal [facility] ID: [id number] Author: COORDINATOR, MAMMOGRAPHY, ? Service: ? Author Type: Physician Type: Letter Filed: 10/05/2023 08:56 Note Text: October 05, 2023 PID: [id number] Michaelle Mays [address] [place] [address] Dear Ms. Mays, We are pleased to inform you that the results of your recent breast imaging exam on 10/04/2023 are normal. Breast tissue can be either dense or not dense. Dense tissue makes it harder to find breast cancer on a mammogram and also raises the risk of developing breast cancer. Your breast tissue is not dense. Talk to your healthcare provider about breast density, risks for breast cancer, and your individual situation. Early detection of cancer is very important. We also understand recommendations regarding breast cancer screening are controversial. Please discuss with your primary care provider which strategy is best for you and whether a mammogram is right for you. Your imaging studies and report will be kept on file at [facility] as part of your permanent medical record and are available for your continuing care. Thank you for allowing us to help in meeting your health care needs. Sincerely, Dr. Zaragoza Interpreting Radiologist [facility] (Normal over 40) Normal [facility] JEN SCREENING W TOMOon 10-03 JEN SCREENING W CHRISTOPHER * * *Final Report* * * DATE OF EXAM: Oct 04 2023 2:56PM [id number] [id number] - JEN SCREENING W CHRISTOPHER / PROCEDURE REASON: Encounter for screening mammogram for malignant neoplasm of breast * * * * Physician Interpretation * * * * RESULT: #[id number] - JEN SCREENING W CHRISTOPHER BILATERAL DIGITAL SCREENING MAMMOGRAM TOMOSYNTHESIS WITH CAD: 10/04/2023 HISTORY: Encounter For Screening Mammogram For Malignant Neoplasm Of Breast /Screening Mammogram with CHRISTOPHER - patient reports NO breast symptoms /priors available for comparison. RESULT: TECHNIQUE: The study was acquired using full field digital technology and interpreted from soft copy. Digital Breast Tomosynthesis (DBT) images were obtained and used to assist in the interpretation of this examination. Current study was also evaluated with a Computer Aided Detection (CAD). Comparison is made to exams dated: 10/02/2022 mammogram, 09/29/2021 mammogram, and 09/26/2020 mammogram - [facility]. The breasts are almost entirely fatty. No significant masses, calcifications, or other findings are seen in either breast. There has been no significant interval change. IMPRESSION: NEGATIVE There is no mammographic evidence of malignancy. A 1 year screening mammogram is recommended. Layne Zaragoza M.D., mc/hafsa:10/05/2023 08:56:02 Digital Coordinator(s): RT Nanci(R)(M), [facility] letter sent: Normal over 40 Mammogram BI-RADS: Category 1: Negative Multiple national specialty organizations have released breast cancer screening guidelines for women at average risk for developing breast cancer - guidelines that are based on both evidence and opinion, yet differ on when to start and how often to screen for breast cancer. With representation from Breast Imaging, Internal Medicine, Women's Health, Family Medicine, and Medical/Surgical Oncology, the [facility] has carefully reviewed the data and reached the following consensus: 1) All women should engage in shared decision-making with their providers to decide when to start and how often to screen; 2) All women should have the opportunity to start screening mammography at age 40; 3) For women ages 45-55, we recommend annual screening mammograms; 4) For women ages 55 and over, we support both the transition from an annual to a biennial interval if this aligns more with patient's values and preferences, or continuation with annual screening; 5) All women should discuss with their providers when to stop screening mammograms. Leak Hunter: Hafsa Transcribe Date/Time: Oct 04 2023 2:34P Dictated by: LAYNE ZARAGOZA MD This examination was interpreted and the report reviewed and electronically signed by: LAYNE ZARAGOZA MD on Oct 05 2023 8:56AM EST [id number] [facility] CNOVon 09-20-2023 CNOV Office Visit (UCWSTR ) MICHAELLE MAYS ([id number]) 1980 F Date Time Provider Department 09/20/23 12:45 PM ESTELITA RIVERA [facility] During your visit today, we recorded the following information about you: Temperature Pulse Respiration Blood pressure 98.2 degrees 95/minute 21/minute 100/66 Weight 119.5 kg Estelita Rivera PA 09/20/2023 12:53 PM Signed This note was created using [employer]. Subjective Michaelle Mays is a 43 year old female. HPI 43-year-old female presents for fatigue and not feeling well x 1 day. Patient states yesterday she started not feeling well and feeling tired. Today she states that she still felt tired, so did not going to work. She needs a work note. She denies any cough congestion sore throat or other URI symptoms. No fevers or chills. No abdominal pain, vomiting, diarrhea. No urinary symptoms. She states her was recently sick with food poisoning, but she has not had any of those symptoms. Otherwise, no sick contacts. She denies any recent rashes, tick bites. No blood in the stool. No abnormal vaginal bleeding. No other complaint. Review of Systems Constitutional: Positive for fatigue. Negative for chills and fever. HENT: Negative for congestion, ear pain and sore throat. Respiratory: Negative for cough and shortness of breath. Cardiovascular: Negative for chest pain. Gastrointestinal: Negative for diarrhea and vomiting. Objective BP 100/66 Pulse 95 Temp 36.8 ?C (98.2 ?F) Resp 21 Wt 119.5 kg (263 lb 7.2 oz) LMP 06/20/2023 SpO2 99% BMI 42.34 kg/m? Physical Exam Vitals and nursing note reviewed. Constitutional: General: She is not in acute distress. Appearance: Normal appearance. She is not toxic-appearing. HENT: Right Ear: Tympanic membrane and ear canal normal. Left Ear: Tympanic membrane and ear canal normal. Nose: Nose normal. Mouth/Throat: Mouth: Mucous membranes are moist. Pharynx: No oropharyngeal exudate or posterior oropharyngeal erythema. Eyes: Conjunctiva/sclera: Conjunctivae normal. Cardiovascular: Rate and Rhythm: Normal rate and regular rhythm. Pulmonary: Effort: Pulmonary effort is normal. Breath sounds: Normal breath sounds. Abdominal: General: Abdomen is flat. Palpations: Abdomen is soft. Tenderness: There is no abdominal tenderness. Neurological: Mental Status: She is alert. Assessment and Plan ASSESSMENT/PLAN: 1. Fatigue, unspecified type - ICD9: 780.79, ICD10: R53.83 -Fatigue for 1 day. Unsure of cause. No other symptoms. -Possible viral illness. -Offered COVID/flu swab, but patient declines. -Patient requesting work note, given note for today. -Follow-up with PCP if symptoms persist. Diagnosis and treatment plan were discussed and questions were answered to the patient's satisfaction. Pt acknowledged understanding of concepts and follow up plan. Specific signs and symptoms that would indicate the need for higher level of care were discussed in detail warranting prompt ER evaluation. SHIN George Allergies As of Date: 09/20/2023 Noted Allergy Reaction HAROLDO INHIBITORS 01/11/2014 18 - Angioedema Comments: History of angioedema BUPROPION/DIETHYLPROP ION 10/16/2002 2 - Rash Comments: Wellbutrin PENICILLINS 04/28/2001 Comments: augmentin Date Reviewed: 09/20/2023 Reviewed by: Kathy Lindo MA - Fully Assessed Reason for Visit: Fatigue [46] Cmt: Lethargic x 1 day Primary Visit Diagnosis:Fatigue, unspecified type [R53.83] Prescriptions as of 09/20/2023 - famotidine (PEPCID) 20 mg tablet Take 1 tablet by mouth at bedtime as needed. - levonorgestrel-ethiny l estradiol (ALTAVERA, 28,) 0.15-0.03 mg per tab Take 1 tablet by mouth once daily. - montelukast (SINGULAIR) 10 mg tablet take 1 tablet by mouth everyday at bedtime - doxepin capsule 25 mg Take 1 capsule by mouth daily at bedtime. Problem List As Of Date 09/20/2023 Noted Resolved Adult BMI 30+ [YGX7221] 02/14/2013 07/02/2017 Angio-edema [T78.3XXA] 01/02/2014 Obesity, Class III, BMI >= 40 E66.01 [E66.01] 07/02/2017 Osteoarthritis [M19.90] 07/02/2017 Urticaria [L50.9] 04/26/2019 ASCUS of cervix with negative high risk HPV [R8*04/2019 Right knee pain [M25.561] 11/13/2019 Effusion of right knee [M25.461] 11/13/2019 Letter Text Encounter Status:Closed by ESTELITA RIVERA on 09/20/23 [facility] CNOVon 08-18-2023 CNOV Office Visit (FAMPWS ) MICHAELLE MAYS ([id number]) 1980 F Date Time Provider Department 08/18/23 1:20 PM JORDILOGJAZZ RANGEL During your visit today, we recorded the following information about you: Pulse Respiration Blood pressure Weight 81/minute 18/minute 118/70 120.8 kg Jazz Wright APRN.PITCHING COACH 08/18/2023 2:37 PM Signed 08/18/2023 Patient presents with: Pain: Right arm and shoulder pain from fall in June SUBJECTIVE: This is a 43 year old that is here today for Above Complaints.. In June while carrying laundry stepped into husbands keyon yanez and fell face forward. Reports right arm landed outstretched onto some boxes. Seen in [facility] on 08/04/2023 and had xray completed. (see below). Given prescription for prednisone which she completed. Reports she had some relief with it. Pain located shoulder to bicep. Described as aching. Aggravated if she over extends it. Reports she has an appointment with ortho in October. Had to take work off today because she woke up with some pain- she thinks she slept on it wrong. Requesting a work excuse. 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 Denies past injury/surgery, redness, excessive warmth, swelling, extremity numbness, tingling or weakness IMPRESSION: No radiographic evidence of acute osseous injury. Leak Hunter: NICOLA Transcribe Date/Time: Aug 04 2023 9:44A Dictated by : CODIE ESTES MD This examination was interpreted and the report reviewed and electronically signed by: CODIE ESTES MD on Aug 04 2023 9:47AM EST Results-Findings * * *Final Report* * * DATE OF EXAM: Aug 04 2023 9:38AM WOX [id number] - XR SHLDR >/=3V AP/VERÓNICA AP/OTHR RT / PROCEDURE REASON: Acute pain of right shoulder * * * * Physician Interpretation * * * * TITLE: XR SHLDR >/=3V AP/VERÓNICA AP/OTHR RT CLINICAL INDICATION: Shoulder pain TECHNIQUE: 4 view radiographic study of the right shoulder COMPARISON: None FINDINGS: No acute fracture or dislocation identified. Acromioclavicular joint intact. 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 Morbid obesity (HCC) Plantar fasciitis Primary osteoarthritis of right knee ALLERGIES Haroldo Inhibitors, Bupropion/Diethylprop ion, and Penicillins MEDICATIONS Current Outpatient Medications Medication Sig famotidine (PEPCID) 20 mg tablet Take 1 tablet by mouth at bedtime as needed. (Patient not taking: Reported on 08/04/2023) diclofenac XR (VOLTAREN-XR) 100 mg Tb24 Take 1 tablet by mouth once daily. levonorgestrel-ethiny l estradiol (ALTAVERA, 28,) 0.15-0.03 mg per tab Take 1 tablet by mouth once daily. montelukast (SINGULAIR) 10 mg tablet take 1 tablet by mouth everyday at bedtime doxepin capsule 25 mg Take 1 capsule by mouth daily at bedtime. No current facility-administered medications for this visit. Medications and allergies reviewed by this provider. SOCIAL HISTORY Social History Tobacco Use Smoking status: Former Packs/day: 0.50 Years: 8.00 Additional pack years: 0.00 Total pack years: 4.00 Types: Cigarettes Quit date: 08/29/2012 Years since quittin.9 Smokeless tobacco: Never Vaping Use Vaping Use: Never used Substance Use Topics Alcohol use: Yes Comment: rarely Drug use: No REVIEW OF SYSTEMS All other reviewed and negative other than HPI. OBJECTIVE: BP 118/70 Pulse 81 Resp 18 Wt 120.8 kg (266 lb 6.4 oz) LMP 06/20/2023 SpO2 96% BMI 42.81 kg/m? . Vital signs reviewed by this provider. APPEARANCE Well appearing, alert, in no acute distress, well-hydrated, well nourished. RIGHT SHOULDER: No obvious deformity, erythema, swelling or excessive warmth. Mild TTP bicep. FROM without difficulty. + NEER, Negative Soliz. 2+ radial pulse Covid-19 Vaccine( season) due on 11/20/2022 DTaP,Tdap,Td Vaccine(2 - Td or Tdap) due on 12/06/2022 Behavioral Health Screening Never done Pap Testing due on 04/29/2023 Colorectal Cancer Screening Never done Mammogram Screening due on 10/03/2023 Influenza Vaccine(Season Ended) due on 11/21/2023 HPV Testing due on 04/26/2024 Lipid Screening due on 09/26/2025 Diabetes Screening due on 02/08/2026 Hepatitis C Screening Completed HIV Screening Completed HPV Vaccine Aged Out ASSESSMENT/PLAN: 1. Acute pain of right shoulder - ICD9: 719.41, ICD10: M25.511 - no red flag symptoms or exam findings - red flag symptoms discussed, verbalizes understanding - may use OTC oral and topical pain relievers as directed on packaging. Recommend ice to area for 15 minutes at a time - note for work provided - follow-up with ortho as scheduled, to ER with red flag symptoms Jazz Baconlogclaire, QA AUTOMATION ARCHITECT.PITCHING COACH Prescription instructions reviewed with patient (more content not included)... [facility] CNOVon 08-04-2023 CNOV Office Visit ([facility]WSTR ) MICHAELLE MYAS ([id number]) 1980 F Date Time Provider Department 08/04/23 9:15 AM ESTELITA RIVERA [facility]STR During your visit today, we recorded the following information about you: Temperature Pulse Respiration Blood pressure 97.7 degrees 78/minute 16/minute 126/78 Weight 121 kg Estelita Rivera PA 08/04/2023 9:53 AM Signed This note was created using IMANIN. Subjective Michaelle Mays is a 43 year old female. HPI 43-year-old female presents for right shoulder pain. Patient has been having right shoulder pain for the past month after she fell at her home. She states that she was carrying a laundry basket and tripped over her 's guitar case and fell down. She states her arm went forward and landed on some totes. She is having right shoulder pain since then. She states the pain comes and goes, some days it is worse than others. She has been taking Tylenol daily which helps somewhat with the pain. She states today she was at work and the pain seemed to be worse, so she left and came here for evaluation. She denies any numbness. She states that today she had a little bit of tingling in her thumb. This is now resolved. No other complaint. 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 Morbid obesity (HCC) Plantar fasciitis Primary osteoarthritis of right knee PAST SURGICAL HISTORY Procedure Laterality Date INDUCED HX 2009 LAPAROSCOPY SURG CHOLECYSTECTOMY 2013 Cholecystectomy, lap PAST SURGICAL HISTORY OF 1998 vaginal wart removal VAGINOSCOPY 2017 ALLERGIES Haroldo Inhibitors, Bupropion/Diethylprop ion, and Penicillins MEDICATIONS diclofenac XR (VOLTAREN-XR) 100 mg Tb24 Take 1 tablet by mouth once daily. levonorgestrel-ethiny l estradiol (ALTAVERA, 28,) 0.15-0.03 mg per tab Take 1 tablet by mouth once daily. montelukast (SINGULAIR) 10 mg tablet take 1 tablet by mouth everyday at bedtime doxepin capsule 25 mg Take 1 capsule by mouth daily at bedtime. famotidine (PEPCID) 20 mg tablet Take 1 tablet by mouth at bedtime as needed. (Patient not taking: Reported on 08/04/2023) FAMILY HISTORY Problem Relation Age of Onset other (skin Cancer) Mother on face, melanoma Stroke Maternal Grandmother Cancer Maternal Grandfather throat Hypertension Maternal Grandfather Social History Tobacco Use Smoking status: Former Packs/day: 0.50 Years: 8.00 Additional pack years: 0.00 Total pack years: 4.00 Types: Cigarettes Quit date: 08/29/2012 Years since quittin.9 Smokeless tobacco: Never Vaping Use Vaping Use: Never used Substance Use Topics Alcohol use: Yes Comment: rarely Drug use: No Review of Systems Constitutional: Negative for chills and fever. HENT: Negative for congestion, ear pain and sore throat. Respiratory: Negative for cough and shortness of breath. Cardiovascular: Negative for chest pain. Gastrointestinal: Negative for diarrhea and vomiting. Musculoskeletal: Positive for arthralgias (Right shoulder pain). Objective BP 126/78 Pulse 78 Temp 36.5 ?C (97.7 ?F) Resp 16 Wt 121 kg (266 lb 12.1 oz) LMP 06/20/2023 SpO2 97% BMI 42.87 kg/m? Physical Exam Vitals and nursing note reviewed. Constitutional: General: She is not in acute distress. Appearance: Normal appearance. She is not toxic-appearing. Musculoskeletal: Right shoulder: Tenderness and bony tenderness present. Decreased range of motion. Arms: Comments: Tenderness over right anterior shoulder as noted in photo above near the biceps tendon insertion. Patient able to forward flex to 100 degrees and abduction to 100 degrees with pain. She has normal strength of the shoulder. Normal ROM elbow and wrist. Normal doctor of audiology strength. Normal sensation right upper extremity. Pulses 2+. No obvious deformity. Skin: General: Skin is warm and dry. Neurological: Mental Status: She is alert. Assessment and Plan ASSESSMENT/PLAN: 1. Acute pain of right shoulder - ICD9: 719.41, ICD10: M25.511 - XR SHOULDER GENERAL 3V OR MORE AP/TRUE AP/OTHER RIGHT-no acute abnormality. -Advised patient we cannot rule out ligamentous injury or rotator cuff injury. Did recommend if symptoms persist follow-up with orthopedics. She is tender over the biceps tendon. Possible biceps tendinitis. -Recommend rest, ice. -Rx for Medrol Dosepak. No NSAIDs while taking this medication. - CONSULT TO ORTHOPAEDICS Diagnosis and treatment plan were discussed and questions were answered to the patient's satisfaction. Pt acknowledged understanding of concepts and follow up plan. Specific signs and symptoms that would indicate the need for higher level of care were discussed in detail warranting prompt ER evaluation. Kri (more content not included)... [facility] CNPNon 08-04-2023 CNPN Telephone (DPQ) MICHAELLE MAYS ([id number]) 1980 F Date Time Provider Department 08/04/23 DEON VALLE DPQ During your visit today, we recorded the following information about you: Shaan Fernandez 08/04/2023 10:24 AM Signed Appointment 08/26/23 needs rescheduled - Contact Made: sent MyChart letter 1st Attempt Michaelle Mays needs to reschedule this appointment with JENNIFER because of unavailability. She should be rescheduled for first available. Please assist her with appointment rescheduling. If unable to do so, please verify best method of contact, and send staff message to the pool so the department may assist her. Essence Chaves 08/09/2023 9:22 AM Signed MC read. Closing encounter Allergies As of Date: 08/04/2023 Noted Allergy Reaction HAROLDO INHIBITORS 01/11/2014 18 - Angioedema Comments: History of angioedema BUPROPION/DIETHYLPROP ION 10/16/2002 2 - Rash Comments: Wellbutrin PENICILLINS 04/28/2001 Comments: augmentin Date Reviewed: 08/04/2023 Reviewed by: Elizabeth Junior MA - Fully Assessed Reason for Visit: Appointment Cancelled [1023] Cmt: 08/26/23 needs rescheduled, see notes for contact attempts. Prescriptions as of 08/09/2023 - methylPREDNISolone (MEDROL, IFRAH,) 4 mg Dose-Pack Follow dosing instructions, take with food. - famotidine (PEPCID) 20 mg tablet Take 1 tablet by mouth at bedtime as needed. - diclofenac XR (VOLTAREN-XR) 100 mg Tb24 Take 1 tablet by mouth once daily. - levonorgestrel-ethiny l estradiol (ALTAVERA, 28,) 0.15-0.03 mg per tab Take 1 tablet by mouth once daily. - montelukast (SINGULAIR) 10 mg tablet take 1 tablet by mouth everyday at bedtime - doxepin capsule 25 mg Take 1 capsule by mouth daily at bedtime. Problem List As Of Date 08/04/2023 Noted Resolved Adult BMI 30+ [ZVP4390] 02/14/2013 07/02/2017 Angio-edema [T78.3XXA] 01/02/2014 Obesity, Class III, BMI >= 40 E66.01 [E66.01] 07/02/2017 Osteoarthritis [M19.90] 07/02/2017 Urticaria [L50.9] 04/26/2019 ASCUS of cervix with negative high risk HPV [R8*04/2019 Right knee pain [M25.561] 11/13/2019 Effusion of right knee [M25.461] 11/13/2019 Encounter Status:Closed by ESSENCE CHAVES on 08/09/23 [facility] XR SHLDR >/=3V AP/VERÓNICA AP/OTH R RTon 08-04-2023 XR SHLDR >/=3V AP/VERÓNICA AP/OTHR RT * * *Final Report* * * DATE OF EXAM: Aug 04 2023 9:38AM WOX [id number] - XR SHLDR >/=3V AP/VERÓNICA AP/OTHR RT / PROCEDURE REASON: Acute pain of right shoulder * * * * Physician Interpretation * * * * TITLE: XR SHLDR >/=3V AP/VERÓNICA AP/OTHR RT CLINICAL INDICATION: Shoulder pain TECHNIQUE: 4 view radiographic study of the right shoulder COMPARISON: None FINDINGS: No acute fracture or dislocation identified. Acromioclavicular joint intact. IMPRESSION: No radiographic evidence of acute osseous injury. Leak Hunter: NICOLA Transcribe Date/Time: Aug 04 2023 9:44A Dictated by : CODIE ESTES MD This examination was interpreted and the report reviewed and electronically signed by: CODIE ESTES MD on Aug 04 2023 9:47AM EST [id number] [facility] XR Shoulder - right 3 Viewso n 08-04-2023 IMPRESSION: No radiographic evidence of acute osseous injury. Leak Hunter: NICOLA Transcribe Date/Time: Aug 04 2023 9:44A Dictated by : CODIE ESTES MD This examination was interpreted and the report reviewed and electronically signed by: CODIE ESTES MD on Aug 04 2023 9:47AM EST DIVISION OF RADIOLOGY * * *Final Report* * * DATE OF EXAM: Aug 04 2023 9:38AM WOX 5253 - XR SHLDR >/=3V AP/VERÓNICA AP/OTHR RT / PROCEDURE REASON: Acute pain of right shoulder * * * * Physician Interpretation * * * * TITLE: XR SHLDR >/=3V AP/VERÓNICA AP/OTHR RT CLINICAL INDICATION: Shoulder pain TECHNIQUE: 4 view radiographic study of the right shoulder COMPARISON: None FINDINGS: No acute fracture or dislocation identified. Acromioclavicular joint intact. DIVISION OF RADIOLOGY Provider, [facility] - 08/04/2023 * * *Final Report* * * DATE OF EXAM: Aug 04 2023 9:38AM WOX 5253 - XR SHLDR >/=3V AP/VERÓNICA AP/OTHR RT / PROCEDURE REASON: Acute pain of right shoulder * * * * Physician Interpretation * * * * TITLE: XR SHLDR >/=3V AP/VERÓNICA AP/OTHR RT CLINICAL INDICATION: Shoulder pain TECHNIQUE: 4 view radiographic study of the right shoulder COMPARISON: None FINDINGS: No acute fracture or dislocation identified. Acromioclavicular joint intact. IMPRESSION IMPRESSION: No radiographic evidence of acute osseous injury. Leak Hunter: [facility] Transcribe Date/Time: Aug 04 2023 9:44A Dictated by : CODIE ESTES MD This examination was interpreted and the report reviewed and electronically signed by: CODIE ESTES MD on Aug 04 2023 9:47AM EST [facility] Radiology Study observation (narrative) Martin Block XR Shoulder - right 3 ViewsO rdered By: [facility] Provider on 08-04-2023 [facility] CNOVon 07-27-2023 CNOV Office Visit (UCWSTR ) MICHAELLE MAYS ([id number]) 1980 F Date Time Provider Department 07/27/23 12:45 PM EULALIA SKINNER [facility] During your visit today, we recorded the following information about you: Temperature Pulse Respiration Blood pressure 97.8 degrees 86/minute 16/minute 128/68 Weight 121.6 kg Eulalia Skinner APRN.PITCHING COACH 07/27/2023 1:09 PM Signed This note was created using Centrafuseriter. Subjective Michaelle Mays is a 43 year old female. 43 year old female with PMH OA presents for abdominal complaints. Acute onset today Woke her up at 0230 Upper abdomen, bilateral Cramping Denies emesis Denies diarrhea Denies fever or chills Denies CP or SOB Tylenol was taken and maybe little relief States she came home from work, and she felt better. She ate bread and yogurt and symptoms returned Has had similar instances in past. Endorses she has a significant family history of GI (IBS) During time of exam states that she feels relief of symptoms. States she needs a work note. The history is provided by the patient. No stucco laborer was used. Abdominal Pain This is a new problem. The current episode started 6 to 12 hours ago. The problem occurs constantly. The problem has not changed since onset.The pain is associated with an unknown factor. The pain is located in the RUQ and LUQ. The quality of the pain is cramping. The pain is at a severity of 5/10. The pain is moderate. Pertinent negatives include anorexia, fever, belching, diarrhea, hematochezia, melena, nausea, vomiting, constipation, dysuria, frequency, hematuria, headaches, arthralgias and myalgias. Nothing aggravates the symptoms. Nothing relieves the symptoms. Past workup does not include GI consult, CT scan, ultrasound, surgery or barium enema. Her past medical history does not include PUD, gallstones, GERD, ulcerative colitis, Crohn's disease or irritable bowel syndrome. 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 montelukast (SINGULAIR) 10 mg tablet take 1 tablet by mouth everyday at bedtime doxepin capsule 25 mg Take 1 capsule by mouth daily at bedtime. diclofenac XR (VOLTAREN-XR) 100 mg Tb24 Take 1 tablet by mouth once daily. famotidine (PEPCID) 20 mg tablet Take 1 tablet by mouth at bedtime as needed. FAMILY HISTORY Problem Relation Age of Onset other (skin Cancer) Mother on face, melanoma Stroke Maternal Grandmother Cancer Maternal Grandfather throat Hypertension Maternal Grandfather Social History Tobacco Use Smoking status: Former Packs/day: 0.50 Years: 8.00 Additional pack years: 0.00 Total pack years: 4.00 Types: Cigarettes Quit date: 08/29/2012 Years since quittin.9 Smokeless tobacco: Never Vaping Use Vaping Use: Never used Substance Use Topics Alcohol use: Yes Comment: rarely Drug use: No Review of Systems Constitutional: Negative for activity change, appetite change, chills and fever. HENT: Negative for congestion, ear pain, rhinorrhea, sinus pressure, sinus pain and sneezing. Eyes: Negative for pain, discharge, redness and itching. Respiratory: Negative for apnea, cough, choking, chest tightness and shortness of breath. Cardiovascular: Negative for chest pain, palpitations and leg swelling. Gastrointestinal: Positive for abdominal pain. Negative for anorexia, constipation, diarrhea, hematochezia, melena, nausea and vomiting. Genitourinary: Negative for dysuria, frequency and hematuria. Musculoskeletal: Negative for arthralgias and myalgias. Skin: Negative for color change, pallor, rash and wound. Allergic/Immunologic: Negative for environmental allergies, food allergies and immunocompromised state. Neurological: Negative for headaches. Hematological: Negative for adenopathy. Does not bruise/bleed easily. Psychiatric/Behaviora l: Negative for agitation and behavioral problems. Objective BP 128/68 Pulse 86 Temp 36.6 ?C (97.8 ?F) Resp 16 Wt 121.6 kg (268 lb 1.3 oz) LMP 06/20/2023 SpO2 99% BMI 43.08 kg/m? Physical Exam Vitals and nursing note reviewed. Constitutional: General: She is not in acute distress. Appearance: Normal appearance. She is obese. She is not ill-appearing, toxic-appearing or diaphoretic. (more content not included)... [facility] CNOVon 07-11-2023 CNOV Office Visit ([facility]WSTR ) SARAHI MAYSFATOU Post ([id number]) 1980 F Date Time Provider Department 07/11/23 8:15 AM EULALIA SKINNER [facility] During your visit today, we recorded the following information about you: Temperature Pulse Respiration Blood pressure 97.2 degrees 85/minute 16/minute 122/62 Weight 122.2 kg Eulalia Skinner APRN.PITCHING COACH 07/11/2023 8:49 AM Signed This note was created using NoteWriter. Subjective Michaellefatou Mays is a 43 year old female. 43 year old female with PMH OA presents for hand complaints. Acute on chronic States she has had this happen several times in past year. This episode started 3 days ago Left palm +raised spot +tender +warm Denies known trauma or injury. Denies new lotions, soaps, or medicines. Denies reduced or limited ROM. Denies fever or chills Denies drainage. Right hand dominant. 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 She is scheduled to see derm in August related to this. She states they haven't really told me what it is She endorses comes in different spots on my hand The history is provided by the patient. No stucco laborer was used. Musculoskeletal Problem This is a recurrent problem. The current episode started in the past 7 days. The problem occurs constantly. The problem has been unchanged. Pertinent negatives include no abdominal pain, anorexia, arthralgias, change in bowel habit, chest pain, chills, congestion, coughing, diaphoresis, fatigue, fever, headaches, joint swelling, myalgias, nausea, neck pain, numbness, rash, sore throat, swollen glands, urinary symptoms, vertigo, visual change, vomiting or weakness. Exacerbated by: touching and use of hand. She has tried nothing for the symptoms. The treatment provided no relief. 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 montelukast (SINGULAIR) 10 mg tablet take 1 tablet by mouth everyday at bedtime doxepin capsule 25 mg Take 1 capsule by mouth daily at bedtime. diclofenac XR (VOLTAREN-XR) 100 mg Tb24 Take 1 tablet by mouth once daily. doxycycline (VIBRA-TABS) 100 mg tablet Take 1 tablet by mouth two times a day for 7 days. FAMILY HISTORY Problem Relation Age of Onset other (skin Cancer) Mother on face, melanoma Stroke Maternal Grandmother Cancer Maternal Grandfather throat Hypertension Maternal Grandfather Social History Tobacco Use Smoking status: Former Packs/day: 0.50 Years: 8.00 Additional pack years: 0.00 Total pack years: 4.00 Types: Cigarettes Quit date: 08/29/2012 Years since quittin.8 Smokeless tobacco: Never Vaping Use Vaping Use: Never used Substance Use Topics Alcohol use: Yes Comment: rarely Drug use: No Review of Systems Constitutional: Negative for chills, diaphoresis, fatigue and fever. HENT: Negative for congestion and sore throat. Eyes: Negative for pain, discharge and itching. Respiratory: Negative for apnea, cough and chest tightness. Cardiovascular: Negative for chest pain. Gastrointestinal: Negative for abdominal pain, anorexia, change in bowel habit, nausea and vomiting. Musculoskeletal: Negative for arthralgias, joint swelling, myalgias and neck pain. Skin: Negative for color change, pallor and rash. Allergic/Immunologic: Negative for environmental allergies, food allergies and immunocompromised state. Neurological: Negative for dizziness, vertigo, facial asymmetry, weakness, numbness and headaches. Hematological: Negative for adenopathy. Does not bruise/bleed easily. Psychiatric/Behaviora l: Negative for agitation and behavioral problems. Objective BP 122/62 Pulse 85 Temp 36.2 ?C (97.2 ?F) Resp 16 Wt 122.2 kg (269 lb 6.4 oz) LMP 06/20/2023 SpO2 98% BMI 43.30 kg/m? Physical Exam Vitals and nursing note reviewed. Constitutional: General: She is not in acute distress. Appearance: Normal appearance. She is normal weight. She is not ill-appearing, toxic-appearing or diaphoretic. HENT: Head: Normocephalic and atraumatic. Right Ear: Ear canal and external ear normal. Left Ear: Ear canal and external ear normal. Nose: Nose normal. No congestion or rhinorrhea. Mouth/Throat: Mouth: Mucous membrane (more content not included)... [facility] CNOVon 06-30-2023 CNOV Office Visit ([facility]WSTR ) MICHAELLE MAYS ([id number]) 1980 F Date Time Provider Department 06/30/23 7:15 AM [facility] During your visit today, we recorded the following information about you: Temperature Pulse Respiration Blood pressure 98.5 degrees 88/minute 16/minute 142/78 Weight Last Period 121 kg 06/20/23 Estelita Rivera PA 06/30/2023 7:29 AM Signed BRAT DIET (may eat any of the following as tolerated) Bananas Applesauce [place] Crackers Animal Crackers Pretzels Oatmeal Unsweetened Dry Cereal (Rice Krispies, Cheerios) Plain Baked or Boiled Potato Plain White Rice Plain Noodles All clear liquid listed below CLEAR LIQUID DIET hour) Broth Jello Popsicles Pedialyte Gatorade NO Milk NO Dairy Products Estelita Rivera PA 06/30/2023 7:33 AM Signed This note was created using IMANIN. Gaby Mays is a 43 year old female. HPI 43-year-old female presents for diarrhea and chills. Patient states she is having diarrhea yesterday. She had 3-4 episodes of diarrhea yesterday and 1 this morning. No blood in the stool. No abdominal pain. States she has a little bit of nausea, no vomiting. No fevers. States she felt a little bit chilled yesterday. No cough, congestion or URI symptoms. No sick contacts that she is aware of. Did not eat anything out of the ordinary prior to the starting. No history of IBS or bowel disease. No other complaint. 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 montelukast (SINGULAIR) 10 mg tablet take 1 tablet by mouth everyday at bedtime doxepin capsule 25 mg Take 1 capsule by mouth daily at bedtime. diclofenac XR (VOLTAREN-XR) 100 mg Tb24 Take 1 tablet by mouth once daily. FAMILY HISTORY Problem Relation Age of Onset other (skin Cancer) Mother on face, melanoma Stroke Maternal Grandmother Cancer Maternal Grandfather throat Hypertension Maternal Grandfather Social History Tobacco Use Smoking status: Former Packs/day: 0.50 Years: 8.00 Additional pack years: 0.00 Total pack years: 4.00 Types: Cigarettes Quit date: 08/29/2012 Years since quittin.8 Smokeless tobacco: Never Vaping Use Vaping Use: Never used Substance Use Topics Alcohol use: Yes Comment: rarely Drug use: No Review of Systems Constitutional: Positive for chills. Negative for fever. HENT: Negative for congestion, ear pain and sore throat. Respiratory: Negative for cough and shortness of breath. Cardiovascular: Negative for chest pain. Gastrointestinal: Positive for diarrhea and nausea. Negative for abdominal pain and vomiting. Objective BP 142/78 Pulse 88 Temp 36.9 ?C (98.5 ?F) Resp 16 Wt 121 kg (266 lb 12.8 oz) LMP 06/20/2023 SpO2 98% BMI 42.88 kg/m? Physical Exam Vitals and nursing note reviewed. Constitutional: General: She is not in acute distress. Appearance: Normal appearance. She is not toxic-appearing. HENT: Right Ear: Tympanic membrane and ear canal normal. Left Ear: Tympanic membrane and ear canal normal. Nose: Nose normal. Mouth/Throat: Mouth: Mucous membranes are moist. Eyes: Conjunctiva/sclera: Conjunctivae normal. Cardiovascular: Rate and Rhythm: Normal rate and regular rhythm. Pulmonary: Effort: Pulmonary effort is normal. Breath sounds: Normal breath sounds. No wheezing, rhonchi or rales. Abdominal: General: Abdomen is flat. Palpations: Abdomen is soft. Tenderness: There is no abdominal tenderness. There is no guarding or rebound. Skin: General: Skin is warm and dry. Neurological: Mental Status: She is alert. Assessment and Plan ASSESSMENT/PLAN: 1. Diarrhea, unspecified type - ICD9: 787.91, ICD10: R19.7 -Suspect viral. Only 1 episode of diarrhea this morning. No blood in the stool, no fevers. -Recommend bland diet/brat diet. -Hydration, rest. -Patient declines COVID/flu swab. -Work note given for today. Diagnosis and treatment plan were discussed and questions were answered to the patient's satisfaction. Pt acknowledged understanding of concepts and follow up plan. Specific signs and symptoms that would indicate the need for higher level of care were discussed in detail warranting prompt ER evaluation. (more content not included)... [facility] CNOVon 05-24-2023 CNOV Office Visit (FAMPWS ) MICHAELLE MAYS ([id number]) 1980 F Date Time Provider Department 05/24/23 3:00 PM PODLOGARJAZZ During your visit today, we recorded the following information about you: Temperature Pulse Respiration Blood pressure 98.4 degrees 101/minute 18/minute 124/80 Weight 120 kg JordilogJazz rangel APRN.PITCHING COACH 05/24/2023 3:42 PM Signed 05/24/2023 Patient presents with: Follow Up: Blister on left hand; taking bactrim and doesn't think it's working as it did prior. SUBJECTIVE: This is a 43 year old that is here today for Above Complaints. [facility] blister to left hand. Placed on Bactrim and mupirocin applied to area. Taking and tolerating Bactrim.Started initially on Wednesday. Started as a small bump and then gradually increased. Denies fevers, chills, itching, other skin blisters, recent contact with plants or new lotions or soaps, recent injury, drainage from area, redness or excessive warmth. Is right hand dominant. Per patient she has had this occur before. 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 levonorgestrel-ethiny l estradiol (ALTAVERA, 28,) 0.15-0.03 mg per tab Take 1 tablet by mouth once daily. montelukast (SINGULAIR) 10 mg tablet take 1 tablet by mouth everyday at bedtime doxepin capsule 25 mg Take 1 capsule by mouth daily at bedtime. diclofenac XR (VOLTAREN-XR) 100 mg Tb24 Take 1 tablet by mouth once daily. No current facility-administered medications for this visit. Medications and allergies reviewed by this provider. SOCIAL HISTORY Social History Tobacco Use Smoking status: Former Packs/day: 0.50 Years: 8.00 Additional pack years: 0.00 Total pack years: 4.00 Types: Cigarettes Quit date: 08/29/2012 Years since quittin.7 Smokeless tobacco: Never Vaping Use Vaping Use: Never used Substance Use Topics Alcohol use: Yes Comment: rarely Drug use: No REVIEW OF SYSTEMS All other reviewed and negative other than HPI. OBJECTIVE: BP 124/80 Pulse 101 Temp 36.9 ?C (98.4 ?F) Resp 18 Wt 120 kg (264 lb 9.6 oz) LMP 04/26/2023 SpO2 98% BMI 42.52 kg/m? . Vital signs reviewed by this provider. APPEARANCE Well appearing, alert, in no acute distress, well-hydrated, well nourished. LEFT HAND: dorsal hand under index finger with tense bullae. Mild erythema surrounding without excessive warmth. No active drainage. No red streaking Influenza Vaccine(1) due on 11/20/2022 Covid-19 Vaccine(5 - 2022- season) due on 11/20/2022 DTaP,Tdap,Td Vaccine(2 - Td or Tdap) due on 12/06/2022 Depression Assessment Never done Pap Testing due on 04/29/2023 Colorectal Cancer Screening due on 2023 Mammogram Screening due on 10/03/2023 HPV Testing due on 04/26/2024 Lipid Screening due on 09/26/2025 Diabetes Screening due on 02/08/2026 Hepatitis C Screening Completed HIV Screening Completed HPV Vaccine Aged Out ASSESSMENT/PLAN: 1. Blister (nonthermal) of left hand, sequela - ICD9: 906.2, ICD10: S60.522S Consider palmoplantar eczema - continue Bactrim - no red flag symptoms or exam findings - red flag symptoms discussed, verbalizes understanding - keep protected. If starts to drain keep covered. If starts to drain purulent drainage return to office - will have her see derm as this has happened before to same area, to ER with red flag symptoms - CONSULT TO DERMATOLOGY Jazz Wright APRN.PITCHING COACH Prescription instructions reviewed with patient as applicable. Patient advised if symptoms do not improve or if symptoms worsen sooner, to contact their primary care physician. Potential red flag symptoms discussed with the patient. Reviewed appropriate action plan to take if red flag symptoms occur. Patient agreeable to treatment plan. Medical Decision Making: Problems: Moderate: New problem with uncertain prognosis Risk: Low: Low risk from testing/treatment Medical Decision Making Level: 3 - Low Allergies As of Date: 05/24/2023 Noted Allergy Reaction HAROLDO INHIBITORS 01/11/2014 18 - Angioedema Comments: History of angioedema BUPROPION/DIETHYLPROP ION 10/16/2002 2 - Rash Comments: Wellbutrin PENICILLINS 04/28/2001 Comments: augmentin Date Reviewed: 05/24/2023 Reviewed by: Selam Ordonez LPN - Fully Assessed Reason for Visit: Follow Up [171] Cmt: Blister on left hand; taking bactrim and doesn't think it's working as i (more content not included)... [facility] CNOVon 05-23-2023 CNOV Office Visit (UCWSTR ) MICHAELLE MAYS ([id number]) 1980 F Date Time Provider Department 05/23/23 8:15 AM MERLYN MEDEL [facility] During your visit today, we recorded the following information about you: Temperature Pulse Respiration Blood pressure 98.7 degrees 120/minute 21/minute 138/88 Weight 120.7 kg Merlyn Medel, GUILLERMINA 05/23/2023 8:23 AM Signed This note was created using NoteWriter. Subjective Michaelle Post Tabatha is a 43 year old female. HPI Patient presents with a blister on her left hand over the past 3 days. States it started off as a small ramírez and then grew. She has had this happen to other times. She states she was treated with Bactrim before and that seemed to take care of it. 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 No drainage from the area. No fever. It is painful. She states she was not doing anything extra with the hand to create a friction blister. Review of Systems Musculoskeletal: Left hand blister All other systems reviewed and are negative. 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 84 tablet 4 montelukast (SINGULAIR) 10 mg tablet take 1 tablet by mouth everyday at bedtime 90 tablet 2 doxepin capsule 25 mg Take 1 capsule by mouth daily at bedtime. 90 capsule 3 diclofenac XR (VOLTAREN-XR) 100 mg Tb24 Take 1 tablet by mouth once daily. 30 tablet 6 sulfamethoxazole-trim ethoprim (BACTRIM DS) 800-160 mg per tablet Take 1 tablet by mouth two times a day for 7 days. 14 tablet 0 No current facility-administered medications for this visit. PAST SURGICAL HISTORY Procedure Laterality Date INDUCED HX 2009 LAPAROSCOPY SURG CHOLECYSTECTOMY 2013 Cholecystectomy, lap PAST SURGICAL HISTORY OF 1998 vaginal wart removal VAGINOSCOPY 2017 FAMILY HISTORY Problem Relation Age of Onset other (skin Cancer) Mother on face, melanoma Stroke Maternal Grandmother Cancer Maternal Grandfather throat Hypertension Maternal Grandfather Social History Tobacco Use Smoking status: Former Packs/day: 0.50 Years: 8.00 Additional pack years: 0.00 Total pack years: 4.00 Types: Cigarettes Quit date: 08/29/2012 Years since quittin.7 Smokeless tobacco: Never Vaping Use Vaping Use: Never used Substance Use Topics Alcohol use: Yes Comment: rarely Drug use: No Objective BP 138/88 Pulse 120 Temp 37.1 ?C (98.7 ?F) Resp 21 Wt 120.7 kg (266 lb) LMP 04/26/2023 SpO2 95% BMI 42.75 kg/m? Physical Exam Vitals reviewed. Constitutional: Appearance: Normal appearance. HENT: Head: Normocephalic and atraumatic. Musculoskeletal: Hands: Comments: Patient has large vesicle on the palm of the left hand. Some surrounding erythema. vesicle is intact. Skin: General: Skin is warm and dry. Neurological: Mental Status: She is alert. Assessment and Plan ASSESSMENT/PLAN: 1. Blister of left hand, initial encounter - ICD9: 914.2, ICD10: S60.522A Patient states previously Bactrim has taking care of this. She does have a history of MRSA before. I did place a nonstick dressing with gauze and mupirocin over the area. Bactrim Rx to her pharmacy. She will follow-up with PCP as this is the third time this has happened. Merlyn Medel PA-C Allergies As of Date: 05/23/2023 Noted Allergy Reaction HAROLDO INHIBITORS 01/11/2014 18 - Angioedema Comments: History of angioedema BUPROPION/DIETHYLPROP ION 10/16/2002 2 - Rash Comments: Wellbutrin PENICILLINS 04/28/2001 Comments: augmentin Date Reviewed: 05/23/2023 Reviewed by: Kathy Lindo MA - Fully Assessed Reason for Visit: Mass [64] Cmt: Left hand blister x 3 days Primary Visit Diagnosis:Blister of left hand, initial encounter [S60.522A] Order(s):sulfamethoxa zole-trimethoprim (BACTRIM DS) 800-160 mg per tabletTake 1 tablet by mouth two times a day for 7 days.Disp: 14 tabletRfl: 0 Prescriptions as of 05/23/2023 - sulfamethoxazole-trim ethoprim (BACTRIM DS) 800-160 mg per tablet Take 1 tablet by mouth two times a day for 7 days. - levonorgestrel-ethiny l estradiol (ALTAVERA, 28,) 0.15-0.03 mg per tab Take 1 tablet by mouth once daily. - montelukast (SINGULAIR) 10 mg tablet take 1 tablet by mouth everyday at bedtime - doxepin capsule 25 mg Take 1 capsule by mouth daily at bedtime. - diclofenac XR (VOLTAREN-XR) 100 mg Tb24 Take 1 tablet by mouth once daily. Problem List As Of Date 05/23/2023 Noted Resolved Adult BMI 30+ [[id number]] 02/14/2013 07/02/2017 Angio-edema [T78.3XXA] 01/02/2014 Obesi (more content not included)... [facility] CNOVon 05-20-2023 CNOV Office Visit (UCWSTR ) MICHAELLE MAYS ([id number]) 1980 F Date Time Provider Department 05/20/23 7:15 AM KOTA LACY [facility] During your visit today, we recorded the following information about you: Temperature Pulse Respiration Blood pressure 98.1 degrees 84/minute 21/minute 130/84 Weight 121.2 kg Kota Lacy APRN.PITCHING COACH 05/20/2023 7:49 AM Signed Subjective HPI HPI Michaelle Post Tabatha is a 43 year old female who presents today for CC of cough, congestion, fatigue, diarrhea. This started 2 days ago. Has tried otc medication for relief. Symptoms are worsened by nothing. Risk factors flu exposures at work. Nonsmoker. Denies possibility of being . 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 montelukast (SINGULAIR) 10 mg tablet take 1 tablet by mouth everyday at bedtime doxepin capsule 25 mg Take 1 capsule by mouth daily at bedtime. diclofenac XR (VOLTAREN-XR) 100 mg Tb24 Take 1 tablet by mouth once daily. FAMILY HISTORY Problem Relation Age of Onset other (skin Cancer) Mother on face, melanoma Stroke Maternal Grandmother Cancer Maternal Grandfather throat Hypertension Maternal Grandfather Social History Tobacco Use Smoking status: Former Packs/day: 0.50 Years: 8.00 Additional pack years: 0.00 Total pack years: 4.00 Types: Cigarettes Quit date: 08/29/2012 Years since quittin.7 Smokeless tobacco: Never Vaping Use Vaping Use: Never used Substance Use Topics Alcohol use: Yes Comment: rarely Drug use: No Review of Systems Constitutional: Positive for chills and malaise/fatigue. Negative for fever. HENT: Positive for congestion. Negative for ear pain, nosebleeds and sore throat. Respiratory: Positive for cough. Negative for shortness of breath and wheezing. Gastrointestinal: Positive for diarrhea. Negative for abdominal pain, constipation, nausea and vomiting. Musculoskeletal: Negative for neck pain. Skin: Negative for itching and rash. Objective Blood pressure 130/84, pulse 84, temperature 36.7 ?C (98.1 ?F), resp. rate 21, weight 121.2 kg (267 lb 3.2 oz), last menstrual period 04/26/2023, SpO2 98%. Physical Exam Constitutional: General: She is not in acute distress. Appearance: She is not toxic-appearing or diaphoretic. HENT: Head: Normocephalic and atraumatic. Nose: Nose normal. Eyes: General: Lids are normal. No scleral icterus. Right eye: No discharge. Left eye: No discharge. Conjunctiva/sclera: Conjunctivae normal. Pupils: Pupils are equal, round, and reactive to light. Neck: Trachea: Trachea normal. Cardiovascular: Rate and Rhythm: Normal rate and regular rhythm. Heart sounds: Normal heart sounds. Pulmonary: Effort: Pulmonary effort is normal. Breath sounds: Normal breath sounds. Musculoskeletal: Cervical back: Normal range of motion and neck supple. Lymphadenopathy: Cervical: No cervical adenopathy. Right cervical: No superficial cervical adenopathy. Left cervical: No superficial cervical adenopathy. Skin: Findings: No rash. Neurological: Mental Status: She is alert and oriented to person, place, and time. ASSESSMENT/PLAN: 1. URI, acute - ICD9: 465.9, ICD10: J06.9 - Discussed viral etiology and rationale for treatment. - Symptomatic treatment with prn analgesia - Supportive care with fluids and rest - Follow up in 3-5 days if symptoms persist or sooner if worsening of symptoms - INFLUENZA AANDB MOLECULAR (POC) Kota Lacy APRN.CNP Allergies As of Date: 05/20/2023 Noted Allergy Reaction HAROLDO INHIBITORS 01/11/2014 18 - Angioedema Comments: History of angioedema BUPROPION/DIETHYLPROP ION 10/16/2002 2 - Rash Comments: Wellbutrin PENICILLINS 04/28/2001 Comments: augmentin Date Reviewed: 05/20/2023 Reviewed by: Kota Lacy APRN.PITCHING COACH - Fully Assessed Reason for Visit: Cough [28] Cmt: Raspy throat, clammy, fatigue, diarrhea x 2 days Primary Visit Diagnosis:URI, acute [J06.9] Order(s):INFLUENZA AANDB MOLECULAR (POC) [[id number]] Order #: [id number]. #:[id number] Prescriptions as of 05/20/2023 - levonorgestrel-ethiny l estradiol (ALTAVERA, 28,) 0.15-0.03 mg per (more content not included)... [facility] INFLUENZA A&B MOLECULAR (POC )on 05-20-2023 Flu A (POCT) Negative Negative [facility] Flu B (POCT) Negative Negative [facility] Procedural Control Valid [facility] CNOVon 05-13-2023 CNOV Office Visit (OBGMEM ) MICHAELLE MAYS ([id number]) 1980 F Date Time Provider Department 05/13/23 7:25 AM KOTA VYAS OBBRETTEM During your visit today, we recorded the following information about you: Blood pressure Weight Last Period 108/64 119.4 kg 04/26/23 Kota Vyas MD 05/13/2023 7:36 AM Signed Michaelle is a 43 year old who presents for an annual gynecologic exam without complaints. Menses: cycles every 28 days and 3 days of flow. 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 Morbid obesity (HCC) Plantar fasciitis Primary osteoarthritis of right knee PAST SURGICAL HISTORY Procedure Laterality Date INDUCED HX 2009 LAPAROSCOPY SURG CHOLECYSTECTOMY 2013 Cholecystectomy, lap PAST SURGICAL HISTORY OF 1998 vaginal wart removal VAGINOSCOPY 2017 FAMILY HISTORY Problem Relation Age of Onset other (skin Cancer) Mother on face, melanoma Stroke Maternal Grandmother Cancer Maternal Grandfather throat Hypertension Maternal Grandfather SOCIAL HISTORY Social History Tobacco Use Smoking status: Former Packs/day: 0.50 Years: 8.00 Additional pack years: 0.00 Total pack years: 4.00 Types: Cigarettes Quit date: 08/29/2012 Years since quittin.7 Smokeless tobacco: Never Vaping Use Vaping Use: Never used Substance Use Topics Alcohol use: Yes Comment: rarely Drug use: No REVIEW OF SYSTEMS Abdomen: No abdominal pain, nausea, vomiting, diarrhea, or constipation. No bloating, early satiety, indigestion, or increased flatulence. Bladder: No dysuria, gross hematuria, urinary frequency, urinary urgency, or incontinence. Breast: No breast lumps, nipple d/c, overlying skin changes, redness or skin retraction. Allergies and current medication updated:Yes EXAM: BP 108/64 Wt 263 lb 3.7 oz (119.4kg) LMP 04/26/2023 GENERAL: pleasant, female in no apparent distress HEENT: Normocephalic, atraumatic, mucus membranes moist, and no lesions NECK: Supple, full range of motion, no adenopathy, and thyroid normal DERMATOLOGY: Normal, without lesions, non-icteric, and non-hirsute BREAST: soft, non-tender, symmetric, no dominant mass, normal nipple-areolar complex, no lymphadenopathy, and no nipple discharge CHEST: Clear to auscultation, Normal inspiratory effort, Regular rate and rhythm, and No murmurs, clicks, rubs or gallops ABDOMEN: soft, non-tender, no masses, and no hepatosplenomegaly PELVIC: external genitalia normal, normal Bartholin's glands, urethra, [place]'s glands, no vulvar lesions, no cervical lesions, physiologic discharge present, normal appearing perineal body and perianal region BIMANUAL: uterus normal size, shape and consistency, midposition, no adnexal masses, and non-tender RECTOVAGINAL: deferred. NEURO: alert and oriented x3,exam grossly non-focal EXTREMITIES: normal ASSESSMENT/PLAN: 1) Health maintenance: Pap/HPV up to date. Mammogram mammogram due September 2023. 2) Contraception: combined hormonal contraceptives. Contraceptive options reviewed and information provided. 3) STD screening: Declined STD check. 4) Follow up one year or sooner as needed Kota Vyas MD Allergies As of Date: 05/13/2023 Noted Allergy Reaction HAROLDO INHIBITORS 01/11/2014 18 - Angioedema Comments: History of angioedema BUPROPION/DIETHYLPROP ION 10/16/2002 2 - Rash Comments: Wellbutrin PENICILLINS 04/28/2001 Comments: augmentin Date Reviewed: 05/13/2023 Reviewed by: Lindy Cooper Ma - Fully Assessed Reason for Visit: Well Woman [1463] Primary Visit Diagnosis:Encounter for gynecological examination (general) (routine) without abnormal findings [Z01.419] Other Visit Diagnoses:Medication refill [Z76.0] Encounter for surveillance of contraceptive pills [Z30.41] Order(s):levonorgestr el-ethinyl estradiol (ALTAVERA, 28,) 0.15-0.03 mg per tabTake 1 tablet by mouth once daily.Disp: 84 tabletRfl: 4 Prescriptions as of 05/13/2023 - levonorgestrel-ethiny l estradiol (ALTAVERA, 28,) 0.15-0.03 mg per tab Take 1 tablet by mouth once daily. - montelukast (SINGULAIR) 10 mg tablet take 1 tablet by mouth everyday at bedtime - doxepin capsule 25 mg Take 1 capsule by mouth daily at bedtime. - diclofenac XR (VOLTAREN-XR) 100 mg Tb24 Take 1 t (more content not included)... [facility] CNOVon 03-29-2023 CNOV Office Visit (WSTR ) MICHAELLE MAYS ([id number]) 1980 F Date Time Provider Department 03/29/23 7:15 AM MAXIMUS WYATT [facility] During your visit today, we recorded the following information about you: Temperature Pulse Respiration Blood pressure 98.2 degrees 92/minute 16/minute 132/80 Weight 119.7 kg Maximus Wyatt APRN.[facility] 03/29/2023 8:03 AM Signed CC: Patient presents with: Head Congestion: cough, headache x 4 days, + home covid x this am HPI: Michaelle Mays is a 42 year old female who presents to the office with complaint of head congestion and cough, nonproductive for 5 days. Symptoms are improving Associated symptoms includes cough. Denies fever, nausea, vomiting , and diarrhea. Treatments tried include nothing so far. with no relief of symptoms. Sick contacts: unknown. History of asthma, frequent episodes of bronchitis, chronic bronchitis, bronchiectasis or COPD: No Smoker: No Seasonal/environmenta l allergies: No The ROS is otherwise negative. The patient's pmh, medications, allergies, and past visits are reviewed. PHYSICAL EXAM: BP 132/80 Pulse 92 Temp 36.8 ?C (98.2 ?F) Resp 16 Wt 119.7 kg (264 lb) LMP 04/26/2022 SpO2 99% BMI 42.43 kg/m? General appearance: alert, cooperative, pleasant, in no acute distress Head: Normocephalic Eyes: EOM's intact, conjunctiva pink and moist, no icterus, sclera white, non-injected Ears: Right ear: External ear/canal- Normal, TM - clear with good landmarks. Left ear: External ear/canal- Normal, TM - clear with good landmarks Oropharynx:moist without lesions, No erythema, exudates or tonsillar hypertrophy. Heart: Negative. RRR without obvious murmur, gallop, or rubs. No ectopy. 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 montelukast (SINGULAIR) 10 mg tablet Take 1 tablet by mouth daily at bedtime. diclofenac XR (VOLTAREN-XR) 100 mg Tb24 Take 1 tablet by mouth once daily. ALTAVERA, 28, 0.15-0.03 mg per tab TAKE 1 TABLET BY MOUTH EVERY DAY FAMILY HISTORY Problem Relation Age of Onset other (skin Cancer) Mother on face, melanoma Stroke Maternal Grandmother Cancer Maternal Grandfather throat Hypertension Maternal Grandfather Social History Tobacco Use Smoking status: Former Packs/day: 0.50 Years: 8.00 Additional pack years: 0.00 Total pack years: 4.00 Types: Cigarettes Quit date: 08/29/2012 Years since quittin.5 Smokeless tobacco: Never Vaping Use Vaping Use: Never used Substance Use Topics Alcohol use: Yes Comment: rarely Drug use: No ASSESSMENT/PLAN: 1. URI, acute - ICD9: 465.9, ICD10: J06.9 - COVID AND INFLUENZA A/B AND RSV NAAT, ROUTINE Does not want antiviral. Potential red flag symptoms discussed with the patient. Reviewed appropriate action plan to take if red flag symptoms occur. Patient agreeable to treatment plan. Maximus Wyatt APRN.PITCHING COACH Allergies As of Date: 03/29/2023 Noted Allergy Reaction HAROLDO INHIBITORS 01/11/2014 18 - Angioedema Comments: History of angioedema BUPROPION/DIETHYLPROP ION 10/16/2002 2 - Rash Comments: Wellbutrin PENICILLINS 04/28/2001 Comments: augmentin Date Reviewed: 03/29/2023 Reviewed by: Elizabeth Junior - Fully Assessed Reason for Visit: Head Congestion [234] Cmt: cough, headache x 4 days, + home covid x this am Primary Visit Diagnosis:URI, acute [J06.9] Order(s):COVID AND INFLUENZA A/B AND RSV NAAT, ROUTINE [SQCVFLRS] Order #: [id number] FUTURE COVID AND INFLUENZA A/B AND RSV NAAT, ROUTINE [SQCVFLRS] Order #: [id number]. #:[id number] Prescriptions as of 03/29/2023 - doxepin capsule 25 mg Take 1 capsule by mouth daily at bedtime. - montelukast (SINGULAIR) 10 mg tablet Take 1 tablet by mouth daily at bedtime. - diclofenac XR (VOLTAREN-XR) 100 mg Tb24 Take 1 tablet by mouth once daily. - ALTAVERA, 28, 0.15-0.03 mg per tab TAKE 1 TABLET BY MOUTH EVERY DAY Problem List As Of Date 03/29/2023 Noted Resolved Adult BMI 30+ [YVR3288] 02/14/2013 07/02/2017 Angio-edema [T78.3XXA] 01/02/2014 Obesity, Class III, BMI >= 40 E66.01 [E66.01] 07/02/2017 Osteoarthritis [M19.90] 07/02/2017 Urticaria [L50.9] 04/26/2019 ASCUS of cervix with negative high risk HPV [R8*04/2019 (more content not included)... Normal [facility] COVID AND INFLUENZA A/B AND RSV NAAT, ROUTINEon 03-29-2023 SARS-CoV-2 (COVID-19) RNA VIVIAN+probe Ql (Unsp spec) COVID 19 RESULT: Detected The method used is RT-PCR or an equivalent NAAT method. Reference Range (the expected result in uninfected individuals): Not detected INFLUENZA A PCR: Not detected INFLUENZA B PCR: Not detected RSV PCR: Not detected Abnormal [facility] Comment on above: Performed By: #### C VFLRS ####[facility] LABCLIA [id number] [facility] [place] [id number] [place] [facility] CNOVon 03-23-2023 CNOV Office Visit (UCWSTR ) MICHAELLE MAYS ([id number]) 1980 F Date Time Provider Department 03/23/23 7:15 AM ESME FELIZ [facility] During your visit today, we recorded the following information about you: Temperature Pulse Respiration Blood pressure 98 degrees 86/minute 16/minute 112/70 Weight 121.6 kg Esme Feliz APRN.PITCHING COACH 03/23/2023 7:37 AM Signed Subjective The history is provided by the patient. No stucco laborer was used. HPI Michaelle Mays is a 42 year old female who presents today for CC of fatigue, cough an ddiarrhea for one day. She was exposed to covid a week ago. She has not used any medication for treatment. Undecided if positive covid if wants paxlovid. Did not do a home covid test BP 112/70 Pulse 86 Temp 36.7 ?C (98 ?F) Resp 16 Wt 121.6 kg (268 lb) LMP 04/26/2022 SpO2 97% BMI 43.07 kg/m? 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 Negative for chills and fever. HENT: Positive for congestion and sinus pain. Negative for ear pain and sore throat. Respiratory: Positive for cough. Negative for sputum production, shortness of breath and wheezing. Cardiovascular: Negative for chest pain. Gastrointestinal: Positive for diarrhea. Negative for abdominal pain, nausea and vomiting. Musculoskeletal: Negative for myalgias. Neurological: Negative for headaches. Objective Physical Exam Vitals and nursing note reviewed. Constitutional: Appearance: Normal appearance. HENT: Head: Normocephalic and atraumatic. Right Ear: Tympanic membrane, ear canal and external ear normal. Left Ear: Tympanic membrane, ear canal and external ear normal. Nose: Rhinorrhea present. No mucosal edema or congestion. Right Sinus: No maxillary sinus tenderness or frontal sinus tenderness. Left Sinus: No maxillary sinus tenderness or frontal sinus tenderness. Mouth/Throat: Pharynx: Uvula midline. No oropharyngeal exudate or posterior oropharyngeal erythema. Cardiovascular: Rate and Rhythm: Normal rate and regular rhythm. Heart sounds: Normal heart sounds. Pulmonary: Effort: Pulmonary effort is normal. Breath sounds: Normal breath sounds. Abdominal: General: Bowel sounds are normal. There is no abdominal bruit. Palpations: Abdomen is not rigid. There is no mass or pulsatile mass. Tenderness: There is no abdominal tenderness. There is no guarding or rebound. Negative signs include Cisneros's sign and McBurney's sign. Lymphadenopathy: Head: Right side of head: No submental, submandibular or tonsillar adenopathy. Left side of head: No submental, submandibular or tonsillar adenopathy. Cervical: No cervical adenopathy. Skin: General: Skin is warm and dry. Neurological: Mental Status: She is alert and oriented to person, place, and time. Psychiatric: Mood and Affect: Affect normal. ASSESSMENT/PLAN: 1. URI, acute - ICD9: 465.9, ICD10: J06.9 (primary diagnosis) 2. Viral illness - ICD9: 079.99, ICD10: B34.9 - Discussed viral etiology and rationale for treatment. - Symptomatic treatment with prn analgesia - Supportive care with fluids and rest Home isolation Testing ordered Comfort measures discussed - see patient instructions. When to seek higher level of care Notified in 12-24 hours with results, available on [employer] Considering paxlovid if positive. Will need rx sent in, patient given information on after visit about paxlovid. Diagnosis and treatment plan were discussed and questions were answered to the patient's satisfaction. Pt acknowledged understanding of concepts and follow up plan. Specific signs and symptoms that would indicate the need for higher level of care were discussed in detail warranting prompt ER evaluation. GRACE Michaud Tonya, APRN.CNP 03/23/2023 7:36 AM Addendum covid and influenza test ordered You will be notified in 12-24 hours, results available on [email or web address] Home isolation until results are back Rest, increase water intake Motrin or Tylenol as needed for fever or pain. Salt water gargles, chloraseptic spray or lozenges as needed for sore throat. Warm beverages, honey. Nasal saline spray as needed Cool mist humidifier at night Tylenol (more content not included)... Normal [facility] COVID AND INFLUENZA A/B AND RSV NAAT, ROUTINEon 03-23-2023 SARS-CoV-2 (COVID-19) RNA VIVIAN+probe Ql (Unsp spec) COVID 19 RESULT: Not detected The method used is RT-PCR or an equivalent NAAT method. Reference Range (the expected result in uninfected individuals): Not detected INFLUENZA A PCR: Not detected INFLUENZA B PCR: Not detected RSV PCR: Not detected Normal [facility] Comment on above: Performed By: #### C VFLRS ####[facility] LABCLIA [id number] [place] [address] [place] JEN SCREENING W [facility] 10-02 [facility] XR KNEE GENERAL 4V AP BOTH/P A BOTH/LAT/MERC RIGHTon 04-23-2022 [facility] JEN SCREENING W [facility]09-29 [facility] XR Finger - left AP and Late ral and obliqueon 04-24-2020 IMPRESSION: No acute pathology. Leak Hunter: NICOLA Transcribe Date/Time: Apr 24 2020 1:58P Dictated by : DEBBIE MULLER DO This examination was interpreted and the report reviewed and electronically signed by: DEBBIE MULLER DO on Apr 24 2020 1:58PM EST DIVISION OF RADIOLOGY * * *Final Report* * * DATE OF EXAM: Apr 24 2020 1:45PM WOX [id number] - XR DIGIT 3V FRONTAL/LAT/OBL LT / PROCEDURE REASON: Pain of left middle finger * * * * Physician Interpretation * * * * LEFT third digit EXAM DATE/TIME: 04/24/2020 1:45 PM HISTORY: 39 years old Clinical information: Pain of left middle finger Pt. states Lt middle mid to distal finger pain and swelling after jamming finger today. Bumped on truck door TECHNIQUE: Images: XR DIGIT 3V FRONTAL/LAT/OBL LT Comparison: None. RESULT: Findings: Bone density appears well-preserved. No fractures or dislocations are seen. DIVISION OF RADIOLOGY Provider, Bianka Vaz [facility] - 04/24/2020 * * *Final Report* * * DATE OF EXAM: Apr 24 2020 1:45PM WOX 5318 - XR DIGIT 3V FRONTAL/LAT/OBL LT / PROCEDURE REASON: Pain of left middle finger * * * * Physician Interpretation * * * * LEFT third digit EXAM DATE/TIME: 04/24/2020 1:45 PM HISTORY: 39 years old Clinical information: Pain of left middle finger Pt. states Lt middle mid to distal finger pain and swelling after jamming finger today. Bumped on truck door TECHNIQUE: Images: XR DIGIT 3V FRONTAL/LAT/OBL LT Comparison: None. RESULT: Findings: Bone density appears well-preserved. No fractures or dislocations are seen. IMPRESSION IMPRESSION: No acute pathology. Leak Hunter: NICOLA Transcribe Date/Time: Apr 24 2020 1:58P Dictated by : DEBBIE MULLER DO This examination was interpreted and the report reviewed and electronically signed by: DEBBIE MULLER DO on Apr 24 2020 1:58PM [facility] Radiology Study observation (narrative) [facility] XR Finger - left AP and Late ral and obliqueOrdered By: Ccf Provider on 04-24-2020 [facility] XR Wrist - right 4 [facility] 1 05-08-2019 IMPRESSION: No acute bony finding. Leak Hunter: NICOLA Transcribe Date/Time: Mar 07 2020 9:51A Dictated by : RAMÍREZ SNYDER MD This examination was interpreted and the report reviewed and electronically signed by: RAMÍREZ SNYDER MD on Mar 07 2020 9:52AM EST DIVISION OF RADIOLOGY * * *Final Report* * * DATE OF EXAM: Mar 07 2020 9:36AM WOX 5273 - XR WRIST 4V PA/LAT/OBL/SCAPH RT / PROCEDURE REASON: Wrist injury, right, initial encounter * * * * Physician Interpretation * * * * Right wrist HISTORY: 39 years old Clinical information: Wrist injury, right, initial encounter Hit a wall with the ulnar side of the right wrist yesterday. Ulnar sided pain and swelling. TECHNIQUE: Images: XR WRIST 4V PA/LAT/OBL/SCAPH RT Comparison: None. RESULT: Findings: No fracture or dislocation is evident. Joint spaces maintained. DIVISION OF RADIOLOGY Provider, [facility] - 03/07/2020 * * *Final Report* * * DATE OF EXAM: Mar 07 2020 9:36AM WOX 5273 - XR WRIST 4V PA/LAT/OBL/SCAPH RT / PROCEDURE REASON: Wrist injury, right, initial encounter * * * * Physician Interpretation * * * * Right wrist HISTORY: 39 years old Clinical information: Wrist injury, right, initial encounter Hit a wall with the ulnar side of the right wrist yesterday. Ulnar sided pain and swelling. TECHNIQUE: Images: XR WRIST 4V PA/LAT/OBL/SCAPH RT Comparison: None. RESULT: Findings: No fracture or dislocation is evident. Joint spaces maintained. IMPRESSION IMPRESSION: No acute bony finding. Leak Hunter: [facility] Transcribe Date/Time: Mar 07 2020 9:51A Dictated by : RAMÍREZ SNYDER MD This examination was interpreted and the report reviewed and electronically signed by: RAMÍREZ SNYDER MD on Mar 07 2020 9:52AM EST [facility] Radiology Study observation (narrative) [facility] XR Wrist - right 4 ViewsOrde red By: Ccf Provider on 03-07-2020 [facility] Emergency Room Note on 02-24-2017 [facility] Note Normal [facility] ([place]) Patient Summary Documentson 02-24-2017 Patient Summary Documents Normal [facility] [place] Vital Signs Date Time Vital Sign Value Performing Clinician Faci aneta 06-27-2024 06:27-0400 Body temperature 98.2 [degF] Wild Riggins MD Work Phone: [facility] 06-27-2024 06:27-0400 Diastolic blood pressure 84 mm[Hg] Wild Riggins MD Work Phone: [facility] 06-27-2024 06:27-0400 Heart rate 89 /min Wild Riggins MD Work Phone: [facility] 06-27-2024 06:27-0400 SaO2% (BldA) [Mass fraction] 96 % Wild Riggins MD Work Phone: [facility] 06-27-2024 06:27-0400 Systolic blood pressure 124 mm[Hg] Wild Riggins MD Work Phone: [facility] 06-14-2024 11:24-0400 Body temperature 98.3 [degF] Wild Riggins MD Work Phone: [facility] 06-14-2024 11:24-0400 Diastolic blood pressure 74 mm[Hg] Wild Riggins MD Work Phone: [facility] 06-14-2024 11:24-0400 Heart rate 76 /min Wild Riggins MD Work Phone: [facility] 06-14-2024 11:24-0400 Respiratory rate 16 /min Wild Riggins MD Work Phone: [facility] 06-14-2024 11:24-0400 SaO2% (BldA) [Mass fraction] 99 % Wild Riggins MD Work Phone: [facility] 06-14-2024 11:24-0400 Systolic blood pressure 130 mm[Hg] Wild Riggins MD Work Phone: [facility] 12-12-2024 15:50-0500 Heart rate 90 /min Jacinta Green MD Work Phone: [facility] 03-02-2024 15:50-0500 SaO2% (BldA) [Mass fraction] 100 % Jacinta Green MD Work Phone: [facility] 03-02-2024 13:51-0500 Body mass index (BMI) [Ratio] 43.01 kg/m2 Jacinta Green MD Work Phone: [facility] 03-02-2024 13:51-0500 Body weight 121.4 kg Jacinta Green MD Work Phone: [facility] 01-14-2024 10:52-0400 Body mass index (BMI) [Ratio] 43.58 kg/m2 Merlyn Athy PA-C Work Phone: [facility] 01-14-2024 10:52-0400 Body temperature 98.1 [degF] Merlyn Athy PA-C Work Phone: [facility] 01-14-2024 10:52-0400 Body weight 123 kg Merlyn Athy PA-C Work Phone: [facility] 01-14-2024 10:52-0400 Diastolic blood pressure 84 mm[Hg] Merlyn Athy PA-C Work Phone: [facility] 01-14-2024 10:52-0400 Heart rate 86 /min Merlyn Athy PA-C Work Phone: [facility] 01-14-2024 10:52-0400 Respiratory rate 18 /min Merlyn Athy PA-C Work Phone: [facility] 01-14-2024 10:52-0400 SaO2% (BldA) [Mass fraction] 98 % Merlyn Athy PA-C Work Phone: [facility] 01-14-2024 10:52-0400 Systolic blood pressure 119 mm[Hg] Merlyn Athy PA-C Work Phone: [facility] 12-30-2023 11:19-0400 Body mass index (BMI) [Ratio] 43.62 kg/m2 Krislyn Aberegg PA Work Phone: [facility] 12-30-2023 11:19-0400 Body temperature 97.81 [degF] Krislyn Aberegg PA Work Phone: [facility] 12-30-2023 11:19-0400 Body weight 123.1 kg Krislyn Aberegg PA Work Phone: [facility] 12-30-2023 11:19-0400 Diastolic blood pressure 85 mm[Hg] Krislyn Aberegg PA Work Phone: [facility] 12-30-2023 11:19-0400 Heart rate 79 /min Krislyn Aberegg PA Work Phone: [facility] 12-30-2023 11:19-0400 Respiratory rate 18 /min Krislyn Aberegg PA Work Phone: [facility] 12-30-2023 11:19-0400 SaO2% (BldA) [Mass fraction] 98 % Krislyn Aberegg PA Work Phone: [facility] 12-30-2023 11:19-0400 Systolic blood pressure 147 mm[Hg] Krislyn Aberegg PA Work Phone: [facility] 09-20-2023 12:40-0400 Body mass index (BMI) [Ratio] 42.34 kg/m2 Krislyn Aberegg PA Work Phone: [facility] 09-20-2023 12:40-0400 Body temperature 98.2 [degF] Krislyn Aberegg PA Work Phone: [facility] 09-20-2023 12:40-0400 Body weight 119.5 kg Krislyn Aberegg PA Work Phone: [facility] 09-20-2023 12:40-0400 Diastolic blood pressure 66 mm[Hg] Krislyn Aberegg PA Work Phone: [facility] 09-20-2023 12:40-0400 Heart rate 95 /min Krislyn Aberegg PA Work Phone: [facility] 09-20-2023 12:40-0400 Respiratory rate 21 /min Krislyn Aberegg PA Work Phone: [facility] 09-20-2023 12:40-0400 SaO2% (BldA) [Mass fraction] 99 % Krislyn Aberegg PA Work Phone: [facility] 09-20-2023 12:40-0400 Systolic blood pressure 100 mm[Hg] Krislyn Aberegg PA Work Phone: [facility] 08-18-2023 13:31-0400 Body mass index (BMI) [Ratio] 42.81 kg/m2 Jazz Podlogar QA AUTOMATION ARCHITECT.PITCHING COACH Work Phone: [facility] 08-18-2023 13:31-0400 Body weight 120.84 kg Jazz Podlogar QA AUTOMATION ARCHITECT.PITCHING COACH Work Phone: [facility] 08-18-2023 13:31-0400 Diastolic blood pressure 70 mm[Hg] Jazz Podlogar QA AUTOMATION ARCHITECT.PITCHING COACH Work Phone: [facility] 08-18-2023 13:31-0400 Heart rate 81 /min Jazz Podlogar QA AUTOMATION ARCHITECT.PITCHING COACH Work Phone: [facility] 08-18-2023 13:31-0400 Respiratory rate 18 /min Jazz Podlogar QA AUTOMATION ARCHITECT.PITCHING COACH Work Phone: [facility] 08-18-2023 13:31-0400 SaO2% (BldA) [Mass fraction] 96 % Jazz Podlogar QA AUTOMATION ARCHITECT.PITCHING COACH Work Phone: [facility] 08-18-2023 13:31-0400 Systolic blood pressure 118 mm[Hg] Jazz Podlogar QA AUTOMATION ARCHITECT.PITCHING COACH Work Phone: [facility] 08-04-2023 09:09-0400 Body mass index (BMI) [Ratio] 42.87 kg/m2 Krislyn Aberegg PA Work Phone: [facility] 08-04-2023 09:09-0400 Body temperature 97.7 [degF] Krislyn Aberegg PA Work Phone: [facility] 08-04-2023 09:09-0400 Body weight 121 kg Krislyn Aberegg PA Work Phone: [facility] 08-04-2023 09:09-0400 Diastolic blood pressure 78 mm[Hg] Krislyn Aberegg PA Work Phone: [facility] 08-04-2023 09:09-0400 Heart rate 78 /min Krislyn Aberegg PA Work Phone: [facility] 08-04-2023 09:09-0400 Respiratory rate 16 /min Krislyn Aberegg PA Work Phone: [facility] 08-04-2023 09:09-0400 SaO2% (BldA) [Mass fraction] 97 % Krislyn Aberegg PA Work Phone: [facility] 08-04-2023 09:09-0400 Systolic blood pressure 126 mm[Hg] Krislyn Aberegg PA Work Phone: [facility] 07-27-2023 12:48-0400 Body mass index (BMI) [Ratio] 43.08 kg/m2 Eulalia Skinner QA AUTOMATION ARCHITECT.PITCHING COACH Work Phone: [facility] 07-27-2023 12:48-0400 Body temperature 97.81 [degF] Eulalia Skinner QA AUTOMATION ARCHITECT.PITCHING COACH Work Phone: [facility] 07-27-2023 12:48-0400 Body weight 121.6 kg Eulalia Skinner QA AUTOMATION ARCHITECT.PITCHING COACH Work Phone: [facility] 07-27-2023 12:48-0400 Diastolic blood pressure 68 mm[Hg] Eulalia Skinner QA AUTOMATION ARCHITECT.PITCHING COACH Work Phone: [facility] 07-27-2023 12:48-0400 Heart rate 86 /min Eulalia Skinner QA AUTOMATION ARCHITECT.PITCHING COACH Work Phone: [facility] 07-27-2023 12:48-0400 Respiratory rate 16 /min Euallia Skinner QA AUTOMATION ARCHITECT.PITCHING COACH Work Phone: [facility] 07-27-2023 12:48-0400 SaO2% (BldA) [Mass fraction] 99 % Eulalia Skinner QA AUTOMATION ARCHITECT.PITCHING COACH Work Phone: [facility] 07-27-2023 12:48-0400 Systolic blood pressure 128 mm[Hg] Eulalia Skinner QA AUTOMATION ARCHITECT.PITCHING COACH Work Phone: [facility] 07-11-2023 08:10-0400 Body temperature 97.2 [degF] Eulalia Skinner QA AUTOMATION ARCHITECT.PITCHING COACH Work Phone: [facility] 07-11-2023 08:10-0400 Body weight 122.2 kg Eulalia Skinner QA AUTOMATION ARCHITECT.PITCHING COACH Work Phone: [facility] 07-11-2023 08:10-0400 Diastolic blood pressure 62 mm[Hg] Eulalia Skinner QA AUTOMATION ARCHITECT.PITCHING COACH Work Phone: [facility] 07-11-2023 08:10-0400 Heart rate 85 /min Eulalia Skinner QA AUTOMATION ARCHITECT.PITCHING COACH Work Phone: [facility] 07-11-2023 08:10-0400 Respiratory rate 16 /min Eulalia Skinner QA AUTOMATION ARCHITECT.PITCHING COACH Work Phone: [facility] 07-11-2023 08:10-0400 SaO2% (BldA) [Mass fraction] 98 % Eulalia Skinner QA AUTOMATION ARCHITECT.PITCHING COACH Work Phone: [facility] 07-11-2023 08:10-0400 Systolic blood pressure 122 mm[Hg] Eulalia Skinner QA AUTOMATION ARCHITECT.PITCHING COACH Work Phone: [facility] 06-30-2023 07:20-0400 Body temperature 98.49 [degF] Estelita MELISSA Work Phone: [facility] 06-30-2023 07:20-0400 Body weight 121.02 kg Krislyn Aberegg PA Work Phone: [facility] 06-30-2023 07:20-0400 Diastolic blood pressure 78 mm[Hg] Krislyn Aberegg PA Work Phone: [facility] 06-30-2023 07:20-0400 Heart rate 88 /min Krislyn Aberegg PA Work Phone: [facility] 06-30-2023 07:20-0400 Respiratory rate 16 /min Krislyn Aberegg PA Work Phone: [facility] 06-30-2023 07:20-0400 SaO2% (BldA) [Mass fraction] 98 % Krislyn Aberegg PA Work Phone: [facility] 06-30-2023 07:20-0400 Systolic blood pressure 142 mm[Hg] Krislyn Aberegg PA Work Phone: [facility] 05-24-2023 14:59-0500 Body temperature 98.4 [degF] Jazz Podlogar QA AUTOMATION ARCHITECT.PITCHING COACH Work Phone: [facility] 05-24-2023 14:59-0500 Body weight 120.02 kg Jazz Podlogar QA AUTOMATION ARCHITECT.PITCHING COACH Work Phone: [facility] 05-24-2023 14:59-0500 Diastolic blood pressure 80 mm[Hg] Jazz Podlogar QA AUTOMATION ARCHITECT.PITCHING COACH Work Phone: [facility] 05-24-2023 14:59-0500 Heart rate 101 /min Jazz Podlogar QA AUTOMATION ARCHITECT.PITCHING COACH Work Phone: [facility] 05-24-2023 14:59-0500 Respiratory rate 18 /min Jazz Podlogar QA AUTOMATION ARCHITECT.PITCHING COACH Work Phone: [facility] 05-24-2023 14:59-0500 SaO2% (BldA) [Mass fraction] 98 % Jazz Podlogar QA AUTOMATION ARCHITECT.PITCHING COACH Work Phone: [facility] 05-24-2023 14:59-0500 Systolic blood pressure 124 mm[Hg] Jazz Wright QA AUTOMATION ARCHITECT.PITCHING COACH Work Phone: [facility] 05-23-2023 08:09-0500 Body temperature 98.71 [degF] Merlyn Athy PA-C Work Phone: [facility] 05-23-2023 08:09-0500 Body weight 120.66 kg Merlyn Athy PA-C Work Phone: [facility] 05-23-2023 08:09-0500 Diastolic blood pressure 88 mm[Hg] Merlyn Athy PA-C Work Phone: [facility] 05-23-2023 08:09-0500 Heart rate 120 /min Merlyn Athy PA-C Work Phone: [facility] 05-23-2023 08:09-0500 Respiratory rate 21 /min Merlyn Athy PA-C Work Phone: [facility] 05-23-2023 08:09-0500 SaO2% (BldA) [Mass fraction] 95 % Merlyn Athy PA-C Work Phone: [facility] 05-23-2023 08:09-0500 Systolic blood pressure 138 mm[Hg] Merlyn Athy PA-C Work Phone: [facility] 05-20-2023 07:14-0500 Body temperature 98.1 [degF] Kota Lacy QA AUTOMATION ARCHITECT.PITCHING COACH Work Phone: [facility] 05-20-2023 07:14-0500 Body weight 121.2 kg Kota Lacy QA AUTOMATION ARCHITECT.PITCHING COACH Work Phone: [facility] 05-20-2023 07:14-0500 Diastolic blood pressure 84 mm[Hg] Kota Lacy QA AUTOMATION ARCHITECT.PITCHING COACH Work Phone: [facility] 05-20-2023 07:14-0500 Heart rate 84 /min Kota Lacy QA AUTOMATION ARCHITECT.PITCHING COACH Work Phone: [facility] 05-20-2023 07:14-0500 Respiratory rate 21 /min Kota Lacy QA AUTOMATION ARCHITECT.PITCHING COACH Work Phone: [facility] 05-20-2023 07:14-0500 SaO2% (BldA) [Mass fraction] 98 % Kota Lacy APRN.PITCHING COACH Work Phone: [facility] 05-20-2023 07:14-0500 Systolic blood pressure 130 mm[Hg] Kota Lacy APRN.PITCHING COACH Work Phone: [facility] 05-13-2023 07:20-0500 Body weight 119.4 kg Kota Vyas MD Work Phone: [facility] 05-13-2023 07:20-0500 Diastolic blood pressure 64 mm[Hg] Kota Vyas MD Work Phone: [facility] 05-13-2023 07:20-0500 Systolic blood pressure 108 mm[Hg] Kota Vyas MD Work Phone: [facility] 03-11-2023 11:05-0500 Body weight 117.66 kg Cheng Mcdaniel MD Work Phone: [facility] 03-11-2023 11:05-0500 Diastolic blood pressure 72 mm[Hg] Cheng Mcdaniel MD Work Phone: [facility] 03-11-2023 11:05-0500 Heart rate 85 /min Cheng Mcdaniel MD Work Phone: [facility] 03-11-2023 11:05-0500 Respiratory rate 16 /min Cheng Mcdaniel MD Work Phone: [facility] 03-11-2023 11:05-0500 SaO2% (BldA) [Mass fraction] 99 % Cheng Mcdaniel MD Work Phone: [facility] 03-11-2023 11:05-0500 Systolic blood pressure 124 mm[Hg] Cheng Mcdaniel MD Work Phone: [facility] 02-23-2023 11:05-0500 Body temperature 98.4 [degF] Lora March QA AUTOMATION ARCHITECT.PITCHING COACH Work Phone: [facility] 02-23-2023 11:05-0500 Body weight 119.2 kg Lora March QA AUTOMATION ARCHITECT.PITCHING COACH Work Phone: [facility] 02-23-2023 11:05-0500 Diastolic blood pressure 74 mm[Hg] Lora March QA AUTOMATION ARCHITECT.PITCHING COACH Work Phone: [facility] 02-23-2023 11:05-0500 Heart rate 78 /min Lora March QA AUTOMATION ARCHITECT.PITCHING COACH Work Phone: [facility] 02-23-2023 11:05-0500 Respiratory rate 16 /min Lora March QA AUTOMATION ARCHITECT.PITCHING COACH Work Phone: [facility] 02-23-2023 11:05-0500 SaO2% (BldA) [Mass fraction] 98 % Lora March QA AUTOMATION ARCHITECT.PITCHING COACH Work Phone: [facility] 02-23-2023 11:05-0500 Systolic blood pressure 118 mm[Hg] Lora March QA AUTOMATION ARCHITECT.PITCHING COACH Work Phone: [facility] 12-02-2022 17:36-0400 Body temperature 98.29 [degF] Micah Pete MD Work Phone: [facility] 12-02-2022 17:36-0400 Body weight 115.21 kg Micah Pete MD Work Phone: [facility] 12-02-2022 17:36-0400 Diastolic blood pressure 82 mm[Hg] Micah Pete MD Work Phone: [facility] 12-02-2022 17:36-0400 Heart rate 82 /min Micah Pete MD Work Phone: [facility] 12-02-2022 17:36-0400 Respiratory rate 16 /min Micah Pete MD Work Phone: [facility] 12-02-2022 17:36-0400 SaO2% (BldA) [Mass fraction] 99 % Micah Pete MD Work Phone: [facility] 12-02-2022 17:36-0400 Systolic blood pressure 122 mm[Hg] Micah Pete MD Work Phone: [facility] 11-16-2022 11:56-0400 Body temperature 98.6 [degF] Kota Lacy QA AUTOMATION ARCHITECT.PITCHING COACH Work Phone: [facility] 11-16-2022 11:56-0400 Body weight 115.67 kg Kota Lacy QA AUTOMATION ARCHITECT.PITCHING COACH Work Phone: [facility] 11-16-2022 11:56-0400 Diastolic blood pressure 78 mm[Hg] Kota Lacy QA AUTOMATION ARCHITECT.PITCHING COACH Work Phone: [facility] 11-16-2022 11:56-0400 Heart rate 112 /min Kota Lacy QA AUTOMATION ARCHITECT.PITCHING COACH Work Phone: [facility] 11-16-2022 11:56-0400 Respiratory rate 18 /min Kota Lacy QA AUTOMATION ARCHITECT.PITCHING COACH Work Phone: [facility] 11-16-2022 11:56-0400 SaO2% (BldA) [Mass fraction] 97 % Kota Lacy QA AUTOMATION ARCHITECT.PITCHING COACH Work Phone: [facility] 11-16-2022 11:56-0400 Systolic blood pressure 138 mm[Hg] Kota Lacy QA AUTOMATION ARCHITECT.PITCHING COACH Work Phone: [facility] 09-07-2022 14:07-0400 Body weight 115.58 kg Jazz Wright QA AUTOMATION ARCHITECT.PITCHING COACH Work Phone: [facility] 09-07-2022 14:07-0400 Diastolic blood pressure 72 mm[Hg] Jazz Podlogar QA AUTOMATION ARCHITECT.PITCHING COACH Work Phone: [facility] 09-07-2022 14:07-0400 Heart rate 78 /min Jazz Baconlogar QA AUTOMATION ARCHITECT.PITCHING COACH Work Phone: [facility] 09-07-2022 14:07-0400 Respiratory rate 18 /min Jazz Podlogar QA AUTOMATION ARCHITECT.PITCHING COACH Work Phone: [facility] 09-07-2022 14:07-0400 SaO2% (BldA) [Mass fraction] 99 % Jazz Podlogar QA AUTOMATION ARCHITECT.PITCHING COACH Work Phone: [facility] 09-07-2022 14:07-0400 Systolic blood pressure 116 mm[Hg] Jazz Podlogar QA AUTOMATION ARCHITECT.PITCHING COACH Work Phone: [facility] 07-29-2022 07:54-0400 Body weight 115.3 kg Jazz Podlogar QA AUTOMATION ARCHITECT.PITCHING COACH Work Phone: [facility] 07-29-2022 07:54-0400 Diastolic blood pressure 66 mm[Hg] Jazz Podlogar QA AUTOMATION ARCHITECT.PITCHING COACH Work Phone: [facility] 07-29-2022 07:54-0400 Heart rate 84 /min Jazz Podlogar QA AUTOMATION ARCHITECT.PITCHING COACH Work Phone: [facility] 07-29-2022 07:54-0400 Respiratory rate 16 /min Jazz Podlogar QA AUTOMATION ARCHITECT.PITCHING COACH Work Phone: [facility] 07-29-2022 07:54-0400 SaO2% (BldA) [Mass fraction] 98 % Jazz Podlogar QA AUTOMATION ARCHITECT.PITCHING COACH Work Phone: [facility] 07-29-2022 07:54-0400 Systolic blood pressure 116 mm[Hg] Jazz Podlogar QA AUTOMATION ARCHITECT.PITCHING COACH Work Phone: [facility] 07-27-2022 07:33-0400 Body temperature 99.3 [degF] Jazz Podlogar QA AUTOMATION ARCHITECT.PITCHING COACH Work Phone: [facility] 07-27-2022 07:33-0400 Body weight 114.67 kg Jazz Podlogar QA AUTOMATION ARCHITECT.PITCHING COACH Work Phone: [facility] 07-27-2022 07:33-0400 Diastolic blood pressure 78 mm[Hg] Jazz Podlogar QA AUTOMATION ARCHITECT.PITCHING COACH Work Phone: [facility] 07-27-2022 07:33-0400 Heart rate 92 /min Jazz Podlogar QA AUTOMATION ARCHITECT.PITCHING COACH Work Phone: [facility] 07-27-2022 07:33-0400 Respiratory rate 16 /min Jazz Podlogar QA AUTOMATION ARCHITECT.PITCHING COACH Work Phone: [facility] 07-27-2022 07:33-0400 SaO2% (BldA) [Mass fraction] 98 % Jazz Podlogar QA AUTOMATION ARCHITECT.PITCHING COACH Work Phone: [facility] 07-27-2022 07:33-0400 Systolic blood pressure 120 mm[Hg] Jazz Podlogar QA AUTOMATION ARCHITECT.PITCHING COACH Work Phone: [facility] 05-06-2022 08:47-0500 Body weight 111.04 kg Micah Jo MD Work Phone: [facility] 05-06-2022 08:47-0500 Diastolic blood pressure 78 mm[Hg] Micah Jo MD Work Phone: [facility] 05-06-2022 08:47-0500 Systolic blood pressure 126 mm[Hg] Micah Jo MD Work Phone: [facility] 03-06-2022 13:23-0500 Body temperature 98.29 [degF] Eulalia Skinner QA AUTOMATION ARCHITECT.PITCHING COACH Work Phone: [facility] 03-06-2022 13:23-0500 Body weight 107.14 kg Eulalia Skinner QA AUTOMATION ARCHITECT.PITCHING COACH Work Phone: [facility] 03-06-2022 13:23-0500 Diastolic blood pressure 66 mm[Hg] Eulalia Skinner QA AUTOMATION ARCHITECT.PITCHING COACH Work Phone: [facility] 03-06-2022 13:23-0500 Heart rate 86 /min Eulalia Skinner QA AUTOMATION ARCHITECT.PITCHING COACH Work Phone: [facility] 03-06-2022 13:23-0500 Respiratory rate 16 /min Eulalia Skinner QA AUTOMATION ARCHITECT.PITCHING COACH Work Phone: [facility] 03-06-2022 13:23-0500 SaO2% (BldA) [Mass fraction] 98 % Eulalia Skinner QA AUTOMATION ARCHITECT.PITCHING COACH Work Phone: [facility] 03-06-2022 13:23-0500 Systolic blood pressure 126 mm[Hg] Eulalia Skinner QA AUTOMATION ARCHITECT.PITCHING COACH Work Phone: [facility] 12-02-2021 12:49-0400 Body temperature 97.81 [degF] Merlyn Athy PA-C Work Phone: [facility] 12-02-2021 12:49-0400 Body weight 106.59 kg Merlyn Athy PA-C Work Phone: [facility] 12-02-2021 12:49-0400 Diastolic blood pressure 72 mm[Hg] Merlyn Athy PA-C Work Phone: [facility] 12-02-2021 12:49-0400 Heart rate 68 /min Merlyn Athy PA-C Work Phone: [facility] 12-02-2021 12:49-0400 Respiratory rate 16 /min Merlyn Athy PA-C Work Phone: [facility] 12-02-2021 12:49-0400 SaO2% (BldA) [Mass fraction] 99 % Merlyn Athy PA-C Work Phone: [facility] 12-02-2021 12:49-0400 Systolic blood pressure 128 mm[Hg] Merlyn Athy PA-C Work Phone: [facility] 08-26-2021 11:55-0400 Body temperature 97.39 [degF] Esme Tray QA AUTOMATION ARCHITECT.PITCHING COACH Work Phone: [facility] 08-26-2021 11:55-0400 Body weight 106.32 kg Esme Tray QA AUTOMATION ARCHITECT.PITCHING COACH Work Phone: [facility] 08-26-2021 11:55-0400 Diastolic blood pressure 68 mm[Hg] Esme Tray QA AUTOMATION ARCHITECT.PITCHING COACH Work Phone: [facility] 08-26-2021 11:55-0400 Heart rate 87 /min Esme Tray QA AUTOMATION ARCHITECT.PITCHING COACH Work Phone: [facility] 08-26-2021 11:55-0400 Respiratory rate 18 /min Esme Feliz QA AUTOMATION ARCHITECT.PITCHING COACH Work Phone: [facility] 08-26-2021 11:55-0400 SaO2% (BldA) [Mass fraction] 98 % Esme Basiliok QA AUTOMATION ARCHITECT.PITCHING COACH Work Phone: [facility] 08-26-2021 11:55-0400 Systolic blood pressure 116 mm[Hg] Esme Tray QA AUTOMATION ARCHITECT.PITCHING COACH Work Phone: [facility] Encounters Encounter Date Encounter Type Care Provider Facility Start: 10-09-2024 End: 10-09-2024 ambulatory Wild Riggins MD Work Phone: -[facility] Start: 10-09-2024 End: 10-09-2024 Patient encounter procedure Nico Osuna HOOK PULLER-C -[facility] Work Phone: Start: 10-09-2024 End: 10-09-2024 ambulatory Nico Osuna HOOK PULLER Facility:[facility] Start: 10-02-2024 End: 10-02-2024 ambulatory DEMARCUS LARSEN Facility:[facility] Start: 10-02-2024 End: 10-02-[address] DEMARCUS LARSEN MD [facility] Start: 06-27-2024 End: 06-27-2024 Patient encounter procedure Kunal MELISSA [facility] Work Phone: Start: 06-27-2024 End: 06-27-2024 ambulatory Wild Riggins Facility:[facility] Start: 06-14-2024 End: 06-14-2024 Patient encounter procedure Kunal MELISSA [facility] Work Phone: Start: 06-14-2024 End: 06-14-2024 ambulatory Chalasuncion Riggins Facility:[facility] Start: 05-15-2024 End: 05-15-2024 ambulatory Nico Paulieow HOOK PULLER Facility:[facility] Start: 03-12-2024 End: 03-13-2024 ambulatory Jacinta Green MD Work Phone: Allergy Comment on above: Blood test results Start: 03-12-2024 End: 03-13-2024 E-mail encounter from caregiver Jacinta Green MD Work Phone: Allergy Start: 03-02-2024 End: 03-02-2024 ambulatory JACINTA GREEN Facility:[facility] Start: 03-02-2024 End: 03-02-2024 Office outpatient visit 40 minutes Jacinta Green MD Work Phone: Allergy Comment on above: Allergy to penicilli n (Primary Dx); Urticaria; Angioedema, subsequent encounter Start: 02-15-2024 End: 02-15-2024 ambulatory Kunal MELISSA Facility[place] Start: 02-10-2024 End: 02-10-2024 ambulatory [facility] Facility:[facility] Start: 01-31-2024 End: 01-31-2024 ambulatory [facility] Facility:[facility] Start: 01-27-2024 End: 01-27-2024 ambulatory [facility] Facility:[facility] Start: 01-27-2024 End: 01-27-2024 Office outpatient visit 25 minutes Jacinta Green MD Work Phone: Allergy Comment on above: Urticaria (Primary D x); Angioedema, subsequent encounter; Allergy to penicillin Start: 01-24-2024 End: 01-26-2024 ambulatory Veronique Johns MD Work Phone: Allergy Comment on above: Possibly upping my d [place] Start: 01-24-2024 End: 01-26-2024 Patient encounter procedure Veronique Johns MD Work Phone: Allergy Comment on above: Yearly appointment Start: 01-14-2024 End: 01-14-2024 ambulatory CHENG MCDANIEL Facility:[facility] Start: 01-14-2024 End: 01-14-2024 Patient encounter procedure Merlyn Medel PA-C Work Phone: [facility] Comment on above: Viral URI (Primary D x); Sinus congestion Start: 12-30-2023 End: 12-30-2023 ambulatory CHENG MCDANIEL Facility:[facility] Start: 12-30-2023 End: 12-30-2023 Patient encounter procedure Estelita MELISSA Work Phone: [facility] Comment on above: Strain of neck muscl e, initial encounter (Primary Dx) Start: 12-07-2023 End: 12-21-2023 ambulatory Veronique Johns MD Work Phone: Allergy Comment on above: Swelling of my tongu e Start: 12-06-2023 End: 12-14-2023 Telephone encounter Cheng Mcdaniel MD Work Phone: [facility] [place] Comment on above: Appointment Start: 12-03-2023 End: 12-03-2023 Emergency department patient visit Alexis Mcdaniel Facility:[facility] Start: 10-05-2023 Documentation procedure Mammog owen Coordinator [facility] Start: 10-05-2023 Letter encounter Mammography Coordinator [facility] Start: 10-04-2023 End: 10-04-2023 ambulatory MICAH JO Facility:[facility] Start: 10-04-2023 End: 10-04-2023 Subsequent hospital visit by physician Screen Mammo [facility] Comment on above: Encounter for screen ing mammogram for malignant neoplasm of breast [Z12.31] Start: 09-20-2023 End: 09-20-2023 ambulatory CHENG MCDANIEL Facility:[facility] Start: 09-20-2023 End: 09-20-2023 Patient encounter procedure Estelita MELISSA Work Phone: [facility] Comment on above: Fatigue, unspecified type (Primary Dx) Start: 08-24-2023 Refill Annemarie shore PA-C Work Phone: Orthopaedics Comment on above: Refill Request Start: 08-18-2023 End: 08-18-2023 ambulatory JAZZ PODLOGAR Facility:[facility] Start: 08-18-2023 End: 08-18-2023 Patient encounter procedure Jazz Wright APRN.PITCHING COACH Work Phone: [facility] [place] Comment on above: Acute pain of right shoulder (Primary Dx) Start: 08-04-2023 Telephone encounter Deon anna MD Work Phone: [facility] [place] Comment on above: Appointment Cancelle d (08/26/23 needs rescheduled, see notes for contact attempts./) Start: 08-04-2023 End: 08-04-2023 Subsequent hospital visit by physician Xr [facility] [place] Work Phone: Radiology Comment on above: Acute pain of right shoulder [M25.511] Start: 08-04-2023 End: 08-04-2023 ambulatory CHENG MCDANIEL Facility:[facility] Start: 08-04-2023 End: 08-04-2023 Patient encounter procedure Estelita Rivera PA Work Phone: [facility] Comment on above: Acute pain of right shoulder (Primary Dx) Start: 07-27-2023 End: 07-27-2023 Refill Annemarie Vetovitz PA-C Work Phone: Orthopaedics Comment on above: Refill Request Pain of upper abdome n (Primary Dx) Start: 07-14-2023 ambulatory Micah olea MD Work Phone: Obstetrics/Gynecology Comment on above: Mammogram Start: 07-14-2023 Refill Annemarie Vetovit z PA-C Work Phone: Orthopaedics Comment on above: Refill Request Start: 07-11-2023 End: 07-11-2023 ambulatory CHENG MCDANIEL Facility:[facility] Start: 07-11-2023 End: 07-11-2023 Patient encounter procedure Eulalia Skinner APRN.PITCHING COACH Work Phone: [facility] Comment on above: Blister of left hand excluding fingers, subsequent encounter (Primary Dx) Start: 06-30-2023 End: 06-30-2023 ambulatory CHENG MCDANIEL Facility:[facility] Start: 06-30-2023 End: 06-30-2023 Patient encounter procedure Estelita MELISSA Work Phone: [facility] Comment on above: Diarrhea, unspecifie d type (Primary Dx) Start: 05-24-2023 End: 05-24-2023 ambulatory JAZZ PODLOGAR Facility:[facility] Start: 05-24-2023 End: 05-24-2023 Patient encounter procedure Jazz Wright APRN.PITCHING COACH Work Phone: [facility] [place] Comment on above: Blister (nonthermal) of left hand, sequela (Primary Dx) Start: 05-23-2023 End: 05-23-[address] [facility] Facility:[facility] Start: 05-23-2023 End: 05-23-2023 Patient encounter procedure Merlyn Medel PA-C Work Phone: [facility] Comment on above: Blister of left hand , initial encounter (Primary Dx) Start: 05-20-2023 End: 05-20-[address] [facility] Facility:[facility] Start: 05-20-2023 End: 05-20-2023 Patient encounter procedure Kota Lacy APRN.PITCHING COACH Work Phone: [facility] Comment on above: URI, acute (Primary Dx) Start: 05-13-2023 End: 05-13-2023 ambulatory KOTA VYAS Facility:[facility] Start: 05-13-2023 End: 05-13-2023 Patient encounter procedure Kota Vyas MD Work Phone: Obstetrics/Gynecology Comment on above: Encounter for gyneco logical examination (general) (routine) without abnormal findings (Primary Dx); Medication refill; Encounter for surveillance of contraceptive pills Start: 05-13-2023 End: 05-13-2023 Patient encounter status Kota Vyas MD Work Phone: [facility] Work Phone: Start: 05-03-2023 Refill Cecilia Gomez APRN.PITCHING COACH Work Phone: Allergy Comment on above: Refill Request Start: 03-29-2023 End: 03-29-2023 ambulatory CHENG MCDANIEL Facility:[facility] Start: 03-23-2023 End: 03-23-2023 ambulatory CHENG MCDANIEL Facility:[facility] Start: 03-11-2023 End: 03-11-2023 Patient encounter procedure Cheng Mcdaniel MD Work Phone: [facility] Comment on above: Acute pain of right knee (Primary Dx) Start: 02-23-2023 End: 02-23-2023 Patient encounter procedure Lora Bradyer QA AUTOMATION ARCHITECT.PITCHING COACH Work Phone: [facility] Comment on above: Viral illness (Prima ry Dx) Start: 12-02-2022 End: 12-02-2022 Patient encounter procedure Micah Pete MD Work Phone: [facility] Comment on above: URI, acute (Primary Dx) Start: 12-01-2022 Refill Cecilia Whitsel QA AUTOMATION ARCHITECT.PITCHING COACH Work Phone: Allergy Comment on above: Refill Request Start: 11-30-2022 Refill Veronique Johns MD Work Phone: Allergy Comment on above: Refill Request Start: 11-16-2022 End: 11-16-2022 Patient encounter procedure Kota Lacy QA AUTOMATION ARCHITECT.PITCHING COACH Work Phone: [facility] Comment on above: Fatigue, unspecified type (Primary Dx) Start: 11-05-2022 Refill Cecilia Whitsel QA AUTOMATION ARCHITECT.PITCHING COACH Work Phone: Allergy Comment on above: Refill Request Start: 10-14-2022 End: 10-14-2022 Patient encounter procedure Treva Reynolds MD Work Phone: Otolaryngology Comment on above: Impacted cerumen of left ear (Primary Dx) Start: 10-02-2022 End: 10-02-2022 Subsequent hospital visit by physician Screen Mammo [facility] Comment on above: Encounter for screen ing mammogram for malignant neoplasm of breast [Z12.31] Start: 09-07-2022 End: 09-07-2022 Patient encounter procedure Jazz Podlogclaire QA AUTOMATION ARCHITECT.PITCHING COACH Work Phone: [facility] [place] Comment on above: Acute left-sided low back pain without sciatica (Primary Dx); Blister of left hand, initial encounter Start: 08-22-2022 ambulatory Treva Reynolds MD Work Phone: Otolaryngology Comment on above: My left ear. Start: 07-29-2022 End: 07-29-2022 Patient encounter procedure Jazz Podlogar QA AUTOMATION ARCHITECT.PITCHING COACH Work Phone: [facility] [place] Comment on above: Skin infection (Prim leanne Dx); Blister of skin Start: 07-27-2022 End: 07-27-2022 Patient encounter procedure Jazz Podlogar QA AUTOMATION ARCHITECT.PITCHING COACH Work Phone: [facility] [place] Comment on above: Skin infection (Prim leanne Dx) Start: 07-22-2022 Telephone encounter Estelita MELISSA Work Phone: [facility] Comment on above: Medication Problem Start: 07-10-2022 Telephone encounter Kota pal QA AUTOMATION ARCHITECT.PITCHING COACH Work Phone: [facility] Comment on above: Letter Start: 2022 End: 2022 Nursing evaluation of patient and report Mi Nurse Work Phone: [facility] [place] Comment on above: Encounter for long-t erm (current) use of medications Start: 05-07-2022 ambulatory Veronique Johns MD Work Phone: Allergy Comment on above: Dox 75 Start: 05-07-2022 Refill Micah olea MD Work Phone: Obstetrics/Gynecology Comment on above: Refill Request Start: 05-06-2022 End: 05-06-2022 Patient encounter procedure Micah Jo MD Work Phone: Obstetrics/Gynecology Comment on above: Encounter for screen ing mammogram for malignant neoplasm of breast (Primary Dx); Women's annual routine gynecological examination Start: 04-23-2022 End: 04-23-2022 Subsequent hospital visit by physician Xr [facility] [place] Work Phone: Radiology Comment on above: Right knee pain, uns pecified chronicity [M25.561] Start: 04-18-2022 Refill Annemarie Vetovit z PA-C Work Phone: Orthopaedics Comment on above: Refill Request Start: 04-15-2022 Orders Only Arthur Krishnan MD Work Phone: Orthopaedics Comment on above: Right knee pain, uns pecified chronicity (Primary Dx) Start: 03-06-2022 End: 03-06-2022 Patient encounter procedure Eulalia Skinner APRN.PITCHING COACH Work Phone: [facility] Comment on above: Strain of neck muscl e, initial encounter (Primary Dx) Start: 03-04-2022 ambulatory Veronique Johns MD Work Phone: Allergy Comment on above: EKG Start: 02-02-2022 End: 02-02-2022 ambulatory Veronique Johns MD Work Phone: Allergy Comment on above: Urticaria (Primary D x); Angioedema, subsequent encounter; Encounter for long-term (current) use of medications Start: 02-02-2022 End: 02-02-2022 Telemedicine consultation with patient Veronique Johns MD Work Phone: [facility] Start: 12-02-2021 End: 12-02-2021 Patient encounter procedure Merlyn Medel PA-C Work Phone: [facility] Comment on above: Diarrhea, unspecifie d type (Primary Dx) Start: 09-29-2021 Documentation procedure Mammog owen Coordinator [facility] Start: 09-29-2021 Letter encounter Mammography Coordinator [facility] Department Start: 09-29-2021 End: 09-29-2021 Subsequent hospital visit by physician Screen Mammo [facility] Comment on above: Encounter for screen ing mammogram for malignant neoplasm of breast [Z12.31] Start: 09-09-2021 Orders Only Annemarie Vetovit z PA-C Work Phone: Orthopaedics Comment on above: Primary osteoarthrit is of right knee Start: 09-01-2021 Refill Veronique Johns MD Work Phone: Allergy Comment on above: Refill Request Start: 08-26-2021 End: 08-26-2021 Patient encounter procedure Esme Feliz QA AUTOMATION ARCHITECT.PITCHING COACH [facility] Comment on above: Nausea (Primary Dx); Diarrhea, unspecified type; Abdominal cramping Start: 08-08-2021 End: 08-08-2021 ambulatory Veronique Johns MD Work Phone: Allergy Comment on above: Encounter for long-t erm (current) use of medications (Primary Dx); Urticaria; Angioedema, subsequent encounter; Cough Start: 08-08-2021 End: 08-08-2021 Telemedicine consultation with patient Veronique Johns MD Work Phone: [facility] Start: 07-20-2021 Refill Cecilia Gomez QA AUTOMATION ARCHITECT.PITCHING COACH Work Phone: Allergy Comment on above: Refill Request Start: 04-24-2020 End: 04-24-2020 Subsequent hospital visit by physician Xr [facility] [place] Work Phone: Radiology Comment on above: Pain of left middle finger [M79.645] Start: 03-07-2020 End: 03-07-2020 Subsequent hospital visit by physician Xr [facility] [place] Work Phone: Radiology Comment on above: Wrist injury, right, initial encounter [S69.91XA] Start: 02-23-2017 End: 02-24-2017 Emergency department patient visit [facility] Facility:B Procedures Date Procedure Procedure Detail Performing Clinician Start: 10-09-2024 Screening mammography Annia Riggins MD Work Phone: Start: 10-02-[address] DEMARCUS LARSEN MD Start: 03-02-2024 ALLERGEN SKIN TEST-PENICILLIN Jacinta Green MD Work Phone: Start: 03-02-2024 Ingestion challenge test initial 120 minutes Jacinta Green MD Work Phone: Start: 08-04-2023 Radex shoulder compl ete minimum 2 views Estelita MELISSA Work Phone: Start: 05-20-2023 INFLUENZA A&B MOLECU LAR (POC) Kota Lacy QA AUTOMATION ARCHITECT.PITCHING COACH Work Phone: Start: 10-02-2022 End: 10-02-2022 Mammography Micah Jo MD Work Phone: Start: 04-23-2022 Radiologic exam knee complete 4/more views Arthur Krishnan MD Work Phone: Start: 09-29-2021 JEN SCREENING W CHRISTOPHER Jo MD Work Phone: Start: 09-29-2021 Mammography Screen Wst r Start: 10-20-2020 Adult depression scr eening assessment Cecilia Gomez QA AUTOMATION ARCHITECT.PITCHING COACH Work Phone: Start: 09-26-2020 Lipid 1996 panel - S aditya or Plasma Kota Vyas MD Work Phone: Start: 09-26-2020 Mammography Cecilia tolbert QA AUTOMATION ARCHITECT.PITCHING COACH Work Phone: Start: 04-24-2020 Radex fingr minimum 2 views Gm Martel QA AUTOMATION ARCHITECT.PITCHING COACH Work Phone: Start: 03-07-2020 Radex wrist complete minimum 3 views Merlyn Medel PA-C Work Phone: Cholecystectomy DR DEMARCUS JENSEN MD Comment on above: LAPAROSCOPIC Plan of Treatment Date Care Activity Detail Author Start: 03-02-2027 Diabetes Screening Diabetes Screenin g [facility] Start: 02-08-2026 Diabetes Screening Diabetes Screenin g [facility] Start: 09-26-2025 Lipid panel Lipid Screening [facility] Start: 10-03-2024 Screening for malign ant neoplasm of breast Mammogram Screening [facility] Start: 04-26-2024 HPV TESTING HPV TESTING [facility] Start: 04-26-2024 Screening for malign ant neoplasm of cervix HPV Testing [facility] Start: 03-02-2024 End: 06-01-2024 C1Q COMPLEMENT PROT [facility] Comment on above: Expected: 03/02/2024 , Expires: 06/01/2024 Start: 03-02-2024 End: 06-01-2024 Complement C1 esterase inhibitor [Mass/volume] in Serum or Plasma [facility] Comment on above: Expected: 03/02/2024 , Expires: 06/01/2024 Start: 03-02-2024 End: 06-01-2024 Complement C1 esterase inhibitor.functional/Co mplement C1 esterase inhibitor.total in Serum or Plasma [facility] Work Phone: Comment on above: Expected: 03/02/2024 , Expires: 06/01/2024 Start: 03-02-2024 End: 06-01-2024 Complement C4 [Mass/volume] in Serum or Plasma [facility] Comment on above: Expected: 03/02/2024 , Expires: 06/01/2024 Start: 03-02-2024 End: 06-01-2024 Comprehensive metabolic 2000 panel - Serum or Plasma [facility] Comment on above: Expected: 03/02/2024 , Expires: 06/01/2024 Start: 03-02-2024 End: 03-02-2024 Patient encounter procedure 03/02/2024 2:00 PM EST Office Visit Allergy [address] [place] [address] [place] [address] [place] [address] SKIN TESTING, INTRADERMAL - PENICILLIN Allergy Comment on above: SKIN TESTING, INTRAD ERMAL - PENICILLIN Start: 01-27-2024 End: 01-27-2024 Follow-up encounter 01/27/2024 3:30 PM EST [facility] [id number] [place] [address] [place] [address] [place] [address] ANNUAL FOLLOW UP - VIRTUAL Allergy Comment on above: ANNUAL FOLLOW UP - V IRTUAL Start: 11-21-2023 Covid-19 Vaccine ( season) Covid-19 Vaccine ( season) [facility] Start: 11-21-2023 Covid-19 Vaccine () Covid-19 Vaccine () [facility] Start: 11-21-2023 Influenza vaccination [facility] Start: 11-08-2023 End: 11-08-2023 Patient encounter procedure 11/08/2023 1:00 PM EDT Office Visit Orthopaedics [address] [place] [address] Annemarie Dick PA-C [address] [place] [address] Acute pain of right shoulder [M25.511] Orthopaedics Comment on above: Acute pain of right shoulder [M25.511] Start: 10-04-2023 End: 10-04-2023 Patient encounter procedure 10/04/2023 2:50 PM EDT [facility]ment [facility] [address] [facility] [place], [place] [id number] Mammogram Start: 10-03-2023 Mammography [facility] Start: 10-03-2023 Screening for malign ant neoplasm of breast Mammogram Screening [facility] Start: 08-26-2023 End: 08-26-2023 Patient encounter procedure 08/26/2023 10:40 AM EDT Office Visit Dermatology [address] [place] [address] [place] [address] [place] [address] Blister of left hand, initial encounter [S60.522A (ICD-10-CM)] Dermatology Comment on above: Blister of left hand , initial encounter [S60.522A (ICD-10-CM)] Start: 2023 Screening for malign ant neoplasm of colon [facility] Start: 04-29-2023 PAP TESTING PAP TESTING [facility] Start: 04-29-2023 Screening for malign ant neoplasm of cervix [facility] Start: 03-22-2023 Behavioral Health Screening Behavioral Health Screening [facility] Start: 03-22-2023 Depression Assessment [facility] Start: 12-06-2022 Urine microalbumin profile [facility] Start: 11-20-2022 Covid-19 Vaccine ( season) Covid-19 Vaccine () [facility] Start: 11-20-2022 Influenza vaccination C [facility] Start: 09-29-2022 Mammography MAMMOGRAM [facility] Start: 03-22-2022 DEPRESSION ASSESSMENT DEPRESSION ASS ESSMENT [facility] Start: 02-02-2022 End: 04-04-2022 CBC W Auto Differential panel - Blood CBC + DIFF Lab Routine Urticaria Angioedema, subsequent encounter Expected: 02/02/2022, Expires: 04/04/2022 [facility] Work Phone: Comment on above: Expected: 02/02/2022 , Expires: 04/04/2022 Start: 02-02-2022 End: 04-04-2022 Comprehensive metabolic 2000 panel - Serum or Plasma COMP METABOLIC PANEL Lab Routine Urticaria Angioedema, subsequent encounter Expected: 02/02/2022, Expires: 04/04/2022 [facility] Work Phone: Comment on above: Expected: 02/02/2022 , Expires: 04/04/2022 Start: 11-20-2021 Influenza vaccination INFLUENZA (#1) [facility] Start: 10-20-2021 Adult depression screening assessment DEPRESSION SCREENING [facility] Start: 09-26-2021 Mammography MAMMOGRAM [facility] Start: 08-08-2021 End: 10-08-2021 CBC W Auto Differential panel - Blood CBC + DIFF Lab Routine Encounter for long-term (current) use of medications Expected: 08/08/2021, Expires: 10/08/2021 [facility] Work Phone: Comment on above: Expected: 08/08/2021 , Expires: 10/08/2021 Start: 08-08-2021 End: 10-08-2021 Comprehensive metabolic 2000 panel - Serum or Plasma COMP METABOLIC PANEL Lab Routine Encounter for long-term (current) use of medications Expected: 08/08/2021, Expires: 10/08/2021 [facility] Work Phone: Comment on above: Expected: 08/08/2021 , Expires: 10/08/2021 Start: 03-22-2021 DEPRESSION ASSESSMENT DEPRESSION ASS ESSMENT [facility] Start: 1996 Anxiety Screening Anxiety Screening [facility] Start: 1996 Depression Screening Depression Scre ening [facility] End: 08-12-2024 DBT Breast - bilateral screening JEN SCREENING W CHRISTOPHER Radiology Routine Encounter for screening mammogram for malignant neoplasm of breast 1 Occurrences starting 07/14/2023 until 08/12/2024 [facility] Work Phone: Comment on above: 1 Occurrences starti ng 07/14/2023 until 08/12/2024 DBT Breast - bilater al screening JEN SCREENING W CHRISTOPHER Radiology Routine Encounter for screening mammogram for malignant neoplasm of breast 10/04/2023 2:56 PM EDT [facility] Work Phone: End: 08-08-2022 ECG COMPLETE ECG COMPLETE ECG Routine Encounter for long-term (current) use of medications 1 Occurrences starting 08/08/2021 until 08/08/2022 [facility] Work Phone: Comment on above: 1 Occurrences starti ng 08/08/2021 until 08/08/2022 End: 02-02-2023 ECG COMPLETE ECG COMPLETE ECG Routine Encounter for long-term (current) use of medications 1 Occurrences starting 02/02/2022 until 02/02/2023 [facility] Work Phone: Comment on above: 1 Occurrences starti ng 02/02/2022 until 02/02/2023 End: 06-05-2023 JEN SCREENING W CHRISTOPHER JEN SCREENING W CHRISTOPHER Radiology Routine Encounter for screening mammogram for malignant neoplasm of breast 1 Occurrences starting 05/06/2022 until 06/05/2023 [facility] Work Phone: Comment on above: 1 Occurrences starti ng 05/06/2022 until 06/05/2023 End: 05-15-2023 XR KNEE GENERAL 4V AP BOTH/PA BOTH/LAT/MERC RIGHT XR KNEE GENERAL 4V AP BOTH/PA BOTH/LAT/MERC RIGHT Radiology Routine Right knee pain, unspecified chronicity 1 Occurrences starting 04/15/2022 until 05/15/2023 [facility] Work Phone: Comment on above: 1 Occurrences starti ng 04/15/2022 until 05/15/2023 [facility] Immunizations Immunization Date Immunization Notes Care Provider Hermilo salter 12-18-2023 COVID-19 vaccine, ag e 12+ yr (MODERNA) Estelita MELISSA Work Phone: [facility] 12-18-2023 influenza virus vaccine, split virus (incl. purified surface antigen) Estelita MELISSA Work Phone: [facility] 01-03-2022 COVID-19 booster vaccine, age 12+ yr, bivalent (MODERNA) Veronique Johns MD Work Phone: [facility] Work Phone: 01-03-2022 Influenza, injectabl e, [facility] Canine Kidney, preservative free, quadrivalent Veronique Johns MD Work Phone: [facility] 01-03-2022 influenza, seasonal, injectable, preservative free Veronique Johns MD Work Phone: [facility] Work Phone: 01-03-2022 influenza virus vaccine, unspecified formulation Cecilai Gomez APRN.PITCHING COACH Work Phone: [facility] 12-27-2020 influenza, injectabl e, quadrivalent, preservative free Cecilia Gomez APRN.PITCHING COACH Work Phone: [facility] 08-15-2020 COVID-19 vaccine, fu ll dose (MODERNA) Cecilia Gomez APRN.PITCHING COACH Work Phone: [facility] 07-11-2020 COVID-19 vaccine, fu ll dose (MODERNA) Cecilia Whitsel QA AUTOMATION ARCHITECT.PITCHING COACH Work Phone: [facility] 12-07-2019 influenza, injectabl e, quadrivalent, preservative free Cecilia Whitsel QA AUTOMATION ARCHITECT.PITCHING COACH Work Phone: [facility] 12-23-2018 influenza, injectabl e, quadrivalent, contains preservative Cecilia Whitsel QA AUTOMATION ARCHITECT.PITCHING COACH Work Phone: [facility] 12-19-2017 influenza, seasonal, injectable Cecilia Whitsel QA AUTOMATION ARCHITECT.PITCHING COACH Work Phone: [facility] 12-06-2012 tetanus toxoid, redu luis enrique diphtheria toxoid, and acellular pertussis vaccine, adsorbed Cecilia Whitsel QA AUTOMATION ARCHITECT.PITCHING COACH Work Phone: [facility] Payers Date Payer Category Payer Private Health Insurance [id number] 2023 Self-pay 2022 Unknown [id number] 2021 Unknown MMO MMO [employer] [id number] 2021-Present [phone] [address] [place] [address] PPO [id number] 2019 Unknown [id number] 2017 Unknown [id number] 1978 Unknown [id number] 27 Unknown [id number] 62 Unknown [id number] 62 Unknown [id number] 62 Unknown [id number] 62 Unknown [id number] 62 Unknown [id number] 62 Unknown [id number] 62 Unknown [id number] 62 Social History Date Type Detail Facility Start: 12-06-2012 End: 12-03-2023 Tobacco smoking status NHIS Ex-smoker [facility] Comment on above: QUIT 12 YEARS AGO Start: 08-29-2004 End: 08-29-2012 History of tobacco use Current smoker [facility] Start: 12-06-2012 End: 07-26-2022 Cigarettes smoked current (pack per day) - Reported 0.5 [facility] Start: 12-06-2012 End: 12-30-2023 Tobacco use and exposure Smokeless tobacco non-user [facility] Start: 05-19-2021 End: 01-14-2024 Alcohol intake Current drinker of alcohol (finding) [facility] Start: 01-25-2020 End: 07-26-2022 History SDOH Alcohol Frequency 1 [facility] Start: 10-09-2019 End: 07-26-2022 History SDOH Alcohol Std Drinks 2 [facility] Start: 02-14-2013 History SDOH Alcohol Comment rarely [facility] Start: 01-25-2020 End: 07-26-2022 History SDOH Social Connections Get Together 98 [facility] Start: 05-31-2019 End: 07-26-2022 History SDOH Social Connections Living 3 [facility] Start: 09-26-2019 End: 07-26-2022 History SDOH Physical Activity DPW 0 [facility] Start: 09-26-2019 End: 07-26-2022 History SDOH Financial 5 [facility] Start: 05-31-2019 Education 12 [facility] Start: 1980 Sex Assigned At Female C [facility] Start: 02-06-2020 End: 02-11-2022 Exposure to SARS-CoV-2 (event) Not sure [facility] Start: 08-29-2004 End: 08-29-2012 History of tobacco use Cigarette Smoker [facility] Work Phone: Start: 07-26-2022 End: 08-18-2023 Social connection and isolation panel [facility] How often do you get together with friends or relatives? Patient refused [facility] Do you belong to any clubs or organizations such as holiness groups, unions, [employer] or athletic groups, or school groups? No [facility] Are you now , , , , never or living with a partner? [facility] How often to you hav e a drink containing alcohol? Monthly or less [facility] How many standard dr inks containing alcohol do you have on a typical day? 1 or 2 [facility] How often do you hav e 6 or more drinks on 1 occasion? Less than monthly [facility] Do you feel stress - tense, restless, nervous, or anxious, or unable to sleep at night because your mind is troubled all the time - these days [OSQ] Not at all [facility] (I/We) worried wheth er (my/our) food would run out before (I/we) got money to buy more. Never true [facility] Start: 01-26-2019 Gender identity Identifies as female gender (finding) [facility] Start: 01-26-2019 Sexual orientation Heterosexual (fin ding) [facility] How often to you hav e a drink containing alcohol? Never [facility] Start: 02-23-2017 Sex Female (finding) [facility] Clinical Notes 02-14-2013 to 10-02-2024 Note Date & Type Note Facility 10-02-2024 Evaluation + Plan note Extrac garcía from: Title:Clinical Document Author:DEMARCUS LARSEN Date:10/02/24 ANITA ADMISSION HISTORY AN D PHYSICIAL CHIEF COMPLAINT: HISTORY OF PRESENT ILLNESS: REVIEW OF SYSTEMS: ACTIVE PROBLEMS: (1) Obese ([id number]) MEDICATIONS: Active Inpt Meds: None Active PRN Meds: None One Time Meds: None Active IV Meds: Lactated Ringers Infusion 1,000 mL (LR 1,000 mL) Start: 10/02/24 8:24:00 EDT, Rate: 50 mL/hr, 10/02/24 8:24:00 EDT ALLERGIES: (2) HAROLDO inhibitors Wellbutrin FAMILY HISTORY: SOCIAL HISTORY: PHYSICAL EXAM: VITALS: [id number](kg) 10/02 08:4036.5--[id number]--14/48780.0 24 Hr Tmax: 36.5 at 10/02 08:40 36 Hr Tmax: 36.5 at 10/02 08:40 Vital Signs are the last 5 in the past 48 hours. Weights display the last 5 within 7 days. Initial Wt: 10/02 116.0 kg 255 lb Current Wt: 10/02 116.0 kg 255 lb GENERAL: HEENT: CARDIOVASCULAR: RESPIRATORY: ABDOMEN: EXREMETIES: NEUROLOGICAL: PSYCHIATRIC: LABS: No 36hr Lab Data DIAGNOSTICS: IMPRESSION: PLAN: History and Physical Update I have examined the patient; reviewed the H&P and there are no changes to the H&P unless noted below. [facility] 07-14-2025 Hospital Discharge instructions Patient Education 10/02/2024 09:47:47 Nausea and Vomiting, Adult Nausea and Vomiting, Adult Nausea is the feeling that you have an upset stomach or that you are about to vomit. Vomiting is when stomach contents are thrown up and out of the mouth as a result of nausea. Vomiting can make you feel weak and cause you to become dehydrated. Dehydration can make you feel tired and thirsty, cause you to have a dry mouth, and decrease how often you urinate. Older adults and people with other diseases or a weak disease-fighting system (immune system) are at higher risk for dehydration. It is important to treat your nausea and vomiting as told by your health care provider. Follow these instructions at home: Watch your symptoms for any changes. Tell your health care provider about them. Follow these instructions to care for yourself at home. Eating and drinking Take an oral rehydration solution (ORS). This is a drink that is sold at pharmacies and retail stores. Drink clear fluids slowly and in small amounts as you are able. Clear fluids include water, ice chips, low-calorie sports drinks, and fruit juice that has water added (diluted fruit juice). Eat bland, hgvt-nb-wrnfpd foods in small amounts as you are able. These foods include bananas, applesauce, rice, lean meats, toast, and crackers. Avoid fluids that contain a lot of sugar or caffeine, such as energy drinks, sports drinks, and soda. Avoid alcohol. Avoid spicy or fatty foods. General instructions Take knny-xom-rdyohhe and prescription medicines only as told by your health care provider. Drink enough fluid to keep your urine pale yellow. Wash your hands often using soap and water. If soap and water are not available, use hand cold header operator. Make sure that all people in your household wash their hands well and often. Rest at home while you recover. Watch your condition for any changes. Breathe slowly and deeply when you feel nauseated. Keep all follow-up visits as told by your health care provider. This is important. Contact a health care provider if: Your symptoms get worse. You have new symptoms. You have a fever. You cannot drink fluids without vomiting. Your nausea does not go away after 2 days. You feel light-headed or dizzy. You have a headache. You have muscle cramps. You have a rash. You have pain while urinating. Get help right away if: You have pain in your chest, neck, arm, or jaw. You feel extremely weak or you faint. You have persistent vomiting. You have vomit that is bright red or looks like black coffee grounds. You have bloody or black stools or stools that look like tar. You have a severe headache, a stiff neck, or both. You have severe pain, cramping, or bloating in your abdomen. You have difficulty breathing, or you are breathing very quickly. Your heart is beating very quickly. Your skin feels cold and clammy. You feel confused. You have signs of dehydration, such as: ?Dark urine, very little urine, or no urine. ?Cracked lips. ?Dry mouth. ?Sunken eyes. ?Sleepiness. ?Weakness. These symptoms may represent a serious problem that is an emergency. Do not wait to see if the symptoms will go away. Get medical help right away. Call your local emergency services (911 in the [place] Do not drive yourself to the hospital. Summary Nausea is the feeling that you have an upset stomach or that you are about to vomit. As nausea getsworse, it can lead to vomiting. Vomiting can make you feel weak and cause you to become dehydrated. Follow instructions from your health care provider about eating and drinking to prevent dehydration. Take sbal-sai-xqffoce and prescription medicines only as told by your health care provider. Contact your health care provider if your symptoms get worse, or you have new symptoms. Keep all follow-up visits as told by your health care provider. This is important. This information is not intended to replace advice given to you by your health care provider. Make sure you discuss any questions you have with your health care provider. Document Released: 03/08/2006 Document Revised: 06/30/2019 Document Reviewed: 08/16/2018 [employer] Patient Education 2020 [employer]. 10/02/2024 09:47:42 Moderate Conscious Sedation, Adult, Care After Moderate Conscious Sedation, Adult, Care After These instructions provide you with information about caring for yourself after your procedure. Your health care provider may also give you more specific instructions. Your treatment has been plannedaccording to current medical practices, but problems sometimes occur. Call your health care provider if you have any problems or questions after your procedure. What can I expect after the procedure? After your procedure, it is common: To feel sleepy for several hours. To feel clumsy and have poor balance for several hours. To have poor judgment for several hours. To vomit if you eat too soon. Follow these instructions at home: For at least 24 hours after the procedure: Do not: ?Participate in activities where you could fall or become injured. ?Drive. ?Use heavy machinery. ?Drink alcohol. ?Take sleeping pills or medicines that cause drowsiness. ?Make important decisions or sign legal documents. ?Take care of children on your own. Rest. Eating and drinking Follow the diet recommended by your health care provider. If you vomit: ?Drink water, juice, or soup when you can drink without vomiting. ?Make sure you have little or no nausea before eating solid foods. General instructions Have a responsible adult stay with you until you are awake and alert. Take yetb-cns-mzvswbc and prescription medicines only as told by your health care provider. If you smoke, do not smoke without supervision. Keep all follow-up visits as told by your health care provider. This is important. Contact a health care provider if: You keep feeling nauseous or you keep vomiting. You feel light-headed. You develop a rash. You have a fever. Get help right away if: You have trouble breathing. This information is not intended to replace advice given to you by your health care provider. Make sure you discuss any questions you have with your health care provider. Document Released: 12/27/2013 Document Revised: 02/18/2018 Document Reviewed: 06/27/2016 [employer] Patient Education 2020 [employer]. 10/02/2024 09:47:20 Colonoscopy, Adult, Care After Colonoscopy, Adult, Care After This sheet gives you information about how to care for yourself after your procedure. Your health care provider may also give you more specific instructions. If you have problems or questions, contact your health care provider. What can I expect after the procedure? After the procedure, it is common to have: A small amount of blood in your stool for 24 hours after the procedure. Some gas. Mild abdominal cramping or bloating. Follow these instructions at home: General instructions For the first 24 hours after the procedure: ?Do not drive or use machinery. ?Do not sign important documents. ?Do not drink alcohol. ?Do your regular daily activities at a slower pace than normal. ?Eat soft, lpju-hc-txgjzw foods. Take vqak-yte-cxjnvix or prescription medicines only as told by your health care provider. Relieving cramping and bloating Try walking around when you have cramps or feel bloated. Apply heat to your abdomen as told by your health care provider. Use a heat source that your healthcare provider recommends, such as a moist heat pack or a heating pad. ?Place a towel between your skin and the heat source. ?Leave the heat on for 20 30 minutes. ?Remove the heat if your skin turns bright red. This is especially important if you are unable to feel pain, heat, or cold. You may have a greater risk of getting burned. Eating and drinking Drink enough fluid to keep your urine pale yellow. Resume your normal diet as instructed by your health care provider. Avoid heavy or fried foods thatare hard to digest. Avoid drinking alcohol for as long as instructed by your health care provider. Contact a health care provider if: You have blood in your stool 2 3 days after the procedure. Get help right away if: You have more than a small spotting of blood in your stool. You pass large blood clots in your stool. Your abdomen is swollen. You have nausea or vomiting. You have a fever. You have increasing abdominal pain that is not relieved with medicine. Summary After the procedure, it is common to have a small amount of blood in your stool. You may also have mild abdominal cramping and bloating. For the first 24 hours after the procedure, do not drive or use machinery, sign important documents, or drink alcohol. Contact your health care provider if you have a lot of blood in your stool, nausea or vomiting, a fever, or increased abdominal pain. This information is not intended to replace advice given to you by your health care provider. Make sure you discuss any questions you have with your health care provider. Document Released: 10/20/2004 Document Revised: 12/29/2017 Document Reviewed: 05/19/2016 [employer] Patient Education [address] Follow Up Care 09/14/2024 07:12:48 With:DEMARCUS LARSEN MD Address: [facility] [address] [address] [address] [phone] When: only if needed Comments:NEXT COLONOSCOPY IN 10 YEARS [facility] 07-14-2025 Note Discharge Instructions Thank you for allowing [facility] to assist you with your healthcare needs. The following is importantdischarge information regarding your hospital visit. Your Care Team WILD RIGGINS MD What to do next Follow Up Appointments Follow Up with DEMARCUS LARSEN MD When:Only if needed Where:[facility] [address] [address] [phone] [phone] Additional Information: NEXT COLONOSCOPY IN 10 YEARS The Following Activity and Diet Have Been Ordered for You Discharge Activity - Ordered -- NO activity restrictions, 10/02/24 9:40:00 EDT Discharge Diet - Ordered -- Follow the post-operative/post-procedure diet instructions provided by your physician's office.,10/02/24 9:40:00 EDT The Following Equipment Has Been Ordered for You Discharge Home Equipment Discharge Wound Care - Ordered -- Follow the post-operative/post-procedure wound care instructions provided by your physician's office., 10/02/24 9:40:00 EDT Allergies HAROLDO inhibitors Wellbutrin Medications Please ask your primary doctor or pharmacist before taking any other medication not listed, including over the counter drugs, herbal medications, vitamins and or supplements as they may interact withyour home medications. What How Much When Instructions Last Dose Unchanged albuterol (Ventolin HFA MDI (90 mcg/ inh) inhalation aerosol) 1 puff(s) by inhalation Once as needed for as needed for wheezing Unchanged EPINEPHrine (EpiPen 2-Ifrah 0.3 mg injectable kit) 1 Each Intramuscular As Directed as needed for allergic reaction Unchanged levocetirizine (levocetirizine 5 mg oral tablet (NF)) 1 tab(s) by mouth Once a day (in the evening) Unchanged Misc Medication Unchanged montelukast (Singulair 10 mg oral tablet) 1 tab(s) by mouth Once a day Unchanged norgestrel (Opill 0.075 mg oral tablet) 1 tab(s) by mouth Once a day Please take this list to your next doctor s visit. Bring all medications you take, including over the counter medications, herbals and other supplements with you to your doctor s visit. Patients and families are reminded to discard old lists and to update any records with all medication providers or retail pharmacies. Education Materials Nausea and Vomiting, Adult Nausea is the feeling that you have an upset stomach or that you are about to vomit. Vomiting is when stomach contents are thrown up and out of the mouth as a result of nausea. Vomiting can make you feel weak and cause you to become dehydrated. Dehydration can make you feel tired and thirsty, cause you to have a dry mouth, and decrease how often you urinate. Older adults and people with other diseases or a weak disease-fighting system (immune system) are at higher risk for dehydration. It is important to treat your nausea and vomiting as told by your health care provider. Follow these instructions at home: Watch your symptoms for any changes. Tell your health care provider about them. Follow these instructions to care for yourself at home. Eating and drinking Take an oral rehydration solution (ORS). This is a drink that is sold at pharmacies and retail stores. Drink clear fluids slowly and in small amounts as you are able. Clear fluids include water, ice chips, low-calorie sports drinks, and fruit juice that has water added (diluted fruit juice). Eat bland, fepq-rb-olxkmz foods in small amounts as you are able. These foods include bananas, applesauce, rice, lean meats, toast, and crackers. Avoid fluids that contain a lot of sugar or caffeine, such as energy drinks, sports drinks, and soda. Avoid alcohol. Avoid spicy or fatty foods. General instructions Take ldvd-epw-ghrcshs and prescription medicines only as told by your health care provider. Drink enough fluid to keep your urine pale yellow. Wash your hands often using soap and water. If soap and water are not available, use hand cold header operator. Make sure that all people in your household wash their hands well and often. Rest at home while you recover. Watch your condition for any changes. Breathe slowly and deeply when you feel nauseated. Keep all follow-up visits as told by your health care provider. This is important. Contact a health care provider if: Your symptoms get worse. You have new symptoms. You have a fever. You cannot drink fluids without vomiting. Your nausea does not go away after 2 days. You feel light-headed or dizzy. You have a headache. You have muscle cramps. You have a rash. You have pain while urinating. Get help right away if: You have pain in your chest, neck, arm, or jaw. You feel extremely weak or you faint. You have persistent vomiting. You have vomit that is bright red or looks like black coffee grounds. You have bloody or black stools or stools that look like tar. You have a severe headache, a stiff neck, or both. You have severe pain, cramping, or bloating in your abdomen. You have difficulty breathing, or you are breathing very quickly. Your heart is beating very quickly. Your skin feels cold and clammy. You feel confused. You have signs of dehydration, such as: ? Dark urine, very little urine, or no urine. ? Cracked lips. ? Dry mouth. ? Sunken eyes. ? Sleepiness. ? Weakness. These symptoms may represent a serious problem that is an emergency. Do not wait to see if the symptoms will go away. Get medical help right away. Call your local emergency services (911 in the [place] Do not drive yourself to the hospital. Summary Nausea is the feeling that you have an upset stomach or that you are about to vomit. As nausea getsworse, it can lead to vomiting. Vomiting can make you feel weak and cause you to become dehydrated. Follow instructions from your health care provider about eating and drinking to prevent dehydration. Take vgib-fep-gnkuyqe and prescription medicines only as told by your health care provider. Contact your health care provider if your symptoms get worse, or you have new symptoms. Keep all follow-up visits as told by your health care provider. This is important. This information is not intended to replace advice given to you by your health care provider. Make sure you discuss any questions you have with your health care provider. Document Released: 03/08/2006 Document Revised: 06/30/2019 Document Reviewed: 08/16/2018 [employer] Patient Education 2020 [employer]. Moderate Conscious Sedation, Adult, Care After These instructions provide you with information about caring for yourself after your procedure. Your health care provider may also give you more specific instructions. Your treatment has been plannedaccording to current medical practices, but problems sometimes occur. Call your health care provider if you have any problems or questions after your procedure. What can I expect after the procedure? After your procedure, it is common: To feel sleepy for several hours. To feel clumsy and have poor balance for several hours. To have poor judgment for several hours. To vomit if you eat too soon. Follow these instructions at home: For at least 24 hours after the procedure: Do not: ? Participate in activities where you could fall or become injured. ? Drive. ? Use heavy machinery. ? Drink alcohol. ? Take sleeping pills or medicines that cause drowsiness. ? Make important decisions or sign legal documents. ? Take care of children on your own. Rest. Eating and drinking Follow the diet recommended by your health care provider. If you vomit: ? Drink water, juice, or soup when you can drink without vomiting. ? Make sure you have little or no nausea before eating solid foods. General instructions Have a responsible adult stay with you until you are awake and alert. Take crdp-oqq-pufnhfm and prescription medicines only as told by your health care provider. If you smoke, do not smoke without supervision. Keep all follow-up visits as told by your health care provider. This is important. Contact a health care provider if: You keep feeling nauseous or you keep vomiting. You feel light-headed. You develop a rash. You have a fever. Get help right away if: You have trouble breathing. This information is not intended to replace advice given to you by your health care provider. Make sure you discuss any questions you have with your health care provider. Document Released: 12/27/2013 Document Revised: 02/18/2018 Document Reviewed: 06/27/2016 [employer] Patient Education 2020 [employer]. Colonoscopy, Adult, Care After This sheet gives you information about how to care for yourself after your procedure. Your health care provider may also give you more specific instructions. If you have problems or questions, contact your health care provider. What can I expect after the procedure? After the procedure, it is common to have: A small amount of blood in your stool for 24 hours after the procedure. Some gas. Mild abdominal cramping or bloating. Follow these instructions at home: General instructions For the first 24 hours after the procedure: ? Do not drive or use machinery. ? Do not sign important documents. ? Do not drink alcohol. ? Do your regular daily activities at a slower pace than normal. ? Eat soft, momv-jn-hkfbix foods. Take esup-cpx-hycjfxg or prescription medicines only as told by your health care provider. Relieving cramping and bloating Try walking around when you have cramps or feel bloated. Apply heat to your abdomen as told by your health care provider. Use a heat source that your healthcare provider recommends, such as a moist heat pack or a heating pad. ? Place a towel between your skin and the heat source. ? Leave the heat on for 20 30 minutes. ? Remove the heat if your skin turns bright red. This is especially important if you are unable to feel pain, heat, or cold. You may have a greater risk of getting burned. Eating and drinking Drink enough fluid to keep your urine pale yellow. Resume your normal diet as instructed by your health care provider. Avoid heavy or fried foods thatare hard to digest. Avoid drinking alcohol for as long as instructed by your health care provider. Contact a health care provider if: You have blood in your stool 2 3 days after the procedure. Get help right away if: You have more than a small spotting of blood in your stool. You pass large blood clots in your stool. Your abdomen is swollen. You have nausea or vomiting. You have a fever. You have increasing abdominal pain that is not relieved with medicine. Summary After the procedure, it is common to have a small amount of blood in your stool. You may also have mild abdominal cramping and bloating. For the first 24 hours after the procedure, do not drive or use machinery, sign important documents, or drink alcohol. Contact your health care provider if you have a lot of blood in your stool, nausea or vomiting, a fever, or increased abdominal pain. This information is not intended to replace advice given to you by your health care provider. Make sure you discuss any questions you have with your health care provider. Document Released: 10/20/2004 Document Revised: 12/29/2017 Document Reviewed: 05/19/2016 [employer] Patient Education 2020 [employer] Additional Information VACCINATE! IT SAVES LIVES! Members of the community who have not yet received the COVID-19 vaccine and would like to receive it can visit one of [facility] vaccine clinics. There are many vaccine clinic locations within the [facility]. For locations and available times, please visit https://gettheshot.coronavirus.[place].gov/. It is important to note that some COVID mobile vaccine clinics are held outdoors and may be canceled in rainy or stormy conditions. To learn more about pediatric vaccinations (ages 5-11), we invite you to visit the [facility] webpage. https://www.[facility].org/pages/3791-Zrnvs-Evtjlugaaww-Vbgaeminif-Ywzsw-Wme stions.htmlTo learn more about the COVID-19 vaccine, we invite you to visit the CDC website for a list of frequently asked questions.https://www.cdc.gov/coronavirus/2019-ncov/vaccines/faq.html [employer] [facility] Patient Portal Access Instructions: Stay connected with your healthcare team and access your personal medical information anytime with the [facility] Patient Portal. Please follow the directions below to create your [employer] [facility] account: 1.Access the email account you provided upon registration to the hospital/physician office.2.Look for an invitation email from [facility].3.Open the email and access the invitation link: AcceptInvitation to [employer].4.Fill in the required arroyo to create your account. To access your account, visit [email or web address]. Click the blue button labeled Access Patient Portal and then log in with the username and password that you created in the steps above. You will be able to view your test results, lab results, a summary of your visits, upcoming appointments and more. There is also a convenient messaging option where you can send secure messages to your p jose cruzvider. In addition, you will have the ability to download any documents or summaries to your computer and/or send the information securely to a physician. Remember that your healthcare information is confidential, so carefully consider who you will allowto register on the [facility] for access to your information. You can also access the [facility] on the [facility] jennifer. Simply click on Patient Portal and then log into your account. If you would like to receive a full copy of your medical records, please contact the [facility] Medical Records Department by calling [phone], Wednesday through Wednesday between 8 a.m. and 4:30 p.m. HOW TO SAFELY DISPOSE OF PRESCRIPTION MEDICATIONS Please use one of the following methods to safely dispose of your unused medications. 1.Use a drug disposal kit: the drug disposal pouch allows you to safely discard your old and unuseddrugs. Ask your nurse to give you one when you are discharged.2.Visit a local take-back location: Many local pharmacies and police departments have programs that collect old and unwanted prescriptiondrugs. Call your local pharmacy or go to http://Facio.[employer]/5R1Ci2n to find one close to you.3.Make use of household items: Use cat litter or old coffee grounds to dispose medications if other options arenot available. Mix your drugs with these household products, seal them in an airtight container andthrow it into the garbage. Call [facility]: [phone] to be sure your drugs can be disposed of in this way. Some medicines may require a different approach.4.Never flush your medications down the toilet. IF YOU HAVE BEEN PRESCRIBED AN OPIOID FOR PAIN If you have been prescribed an opioid (such as hydrocodone, oxycodone or morphine), it is critical to understand the possible side effects and risks of opioid pain medications. Even when taken as directed, opioids can have several side effects including: Tolerance, meaning you might need to take more of a medication for the same pain relief. Nausea, vomiting and/or constipation. Sleepiness, dizziness, dry mouth, confusion, depression or itching. Physical dependence, meaning you have withdrawal symptoms when a medication is stopped, can develop within a few days. KNOW YOUR RESPONSIBILITIES It is important to know exactly how much and how often to take the opioid pain medications you are prescribed. Never take opioids in higher amounts or more often than prescribed. Do not combine opioids with alcohol or other drugs that cause drowsiness, such as benzodiazepines, also known as benzos, including diazepam and alprazolam, muscle relaxants or sleep aids. Never sell or share prescription opioids. This is illegal. Store opioids in a secure place and out of reach of others (including children, family, friends and visitors). The last page of this document has been signed and retained as a CHART COPY. Signatures Patient Education Materials Nausea and Vomiting, Adult Moderate Conscious Sedation, Adult, Care After Colonoscopy, Adult, Care After Medication Leaflets My discharge plan and instructions have been reviewed and explained to me and I,MICHAELLE MAYS understand my current condition and have read and understand these discharge instructions. I have received a written copy of the plan/instructions. If I have questions, I am aware that I should contact my doctor. 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 The colonoscope was passed into the rectum and advanced to the cecum. The patient had excellent preparation, the base of the cecumwas photographed. No obvious large polyps seen. Back across the transverse colon the mucosa may normal below splenic flexure to the left colon there were no obvious large polyps seen. The splenic flexure to the left colon there were no obvious large polyps seen the mucosa was normal. Retroflexion performed the rectum revealed small internal hemorrhoids. Decompressed the patient tolerated the procedure well Post-Procedure Exam Screening colonoscopy Findings Normal exam Complications None apparent Total Time Approximately 20 minutes Assessment/Plan Orders: Lactated Ringers Infusion 1,000 mL(LR 1,000 mL), 1000 mL, Intravenous Bedrest, 10/02/24 9:40:00 EDT, Strict, continuous, Constant order, Lying on side until alert or as ordered Bedrest, 10/02/24 9:40:00 EDT, Strict, continuous, Constant order, Lying on side until alert or as ordered Call Parameters, 10/02/24 9:40:00 EDT, Notify for vomiting, severe pain, signs of bleeding, severe abdominal pain, distention or rigidity, Constant order Communication Order (scheduled), 10/02/24 8:24:00 EDT, Once, 10/02/24 8:24:00 EDT, Pathology TissueRequest Communication Order (scheduled), 10/02/24 8:24:00 EDT, Once, 10/02/24 8:24:00 EDT, Urine Test or waiver for women of child bearing age Communication Order (scheduled), 10/02/24 8:24:00 EDT, Once, 10/02/24 8:24:00 EDT, Fasting Blood Sugar priot to procedure of patient is diabetic Diet Order, 10/02/24 9:40:00 EDT, Start Meal: Next meal, Clear Liquid Diet, Post exam or after gag reflex returns if EGD, Constant Order, : No, per patient, : No Discharge, 10/02/24 8:24:00 EDT, Discharged to: Home, when able to ambulate and after being seen byphysician Discharge Activity, NO activity restrictions, 10/02/24 9:40:00 EDT Discharge Diet, Follow the post-operative/post-procedure diet instructions provided by your physician's office., 10/02/24 9:40:00 EDT Discharge Wound Care, Follow the post-operative/post-procedure wound care instructions provided by your physician's office., 10/02/24 9:40:00 EDT Post Procedure Assessment, 10/02/24 9:40:00 EDT, Stop Date 10/02/24 9:40:00 EDT, [facility] in [facility] until Nena Score of 12 or Preprocedure Sign Consent, 10/02/24 8:24:00 EDT, Once, For Colonoscopy Vital Signs, 10/02/24 9:40:00 EDT, q15min, 1 hour(s), 10/02/24 10:30:00 EDT Vital Signs, 10/02/24 9:40:00 EDT, q30min, 1 hour(s), 10/02/24 10:30:00 EDT Vital Signs PRN, 10/02/24 9:40:00 EDT, PRN order Follow Up/Recommendation Repeat colonoscopy in 10 years Digitally Signed by DEMARCUS LARSEN MD on 10/02/2024 09:44 AM [facility]07-14-2025 Anesthesiology Consult note Patient: MICHAELLE MAYS Age: 44 years Sex: Female : 1980 Associated Diagnoses: None Author: AZAEL LONG QA AUTOMATION ARCHITECT-GLASS SCULLION Assessment Postanesthesia assessment Vitals: Vital signs from flowsheet : Vital Signs 10/02/2024 9:30 EDT Heart Rate Monitored 59 bpm bpm Respiratory Rate - Anes 26 br/min br/min 10/02/2024 9:25 EDT Heart Rate Monitored 65 bpm bpm Respiratory Rate - Anes 15 br/min br/min Systolic Blood Pressure Non-Invasive 125 mmHg mmHg Diastolic Blood Pressure Non-Invasive 64 mmHg mmHg 10/02/2024 9:21 EDT Systolic Blood Pressure Non-Invasive 132 mmHg mmHg Diastolic Blood Pressure Non-Invasive 72 mmHg mmHg 10/02/2024 8:40 EDT Temperature Temporal Artery 36.5 DegC Peripheral Pulse Rate 80 bpm Respiratory Rate 12 br/min LOW Systolic Blood Pressure Non-Invasive 120 mmHg Diastolic Blood Pressure Non-Invasive 75 mmHg . Mental status: alert & oriented x 4. Respiratory function: lungs are clear to auscultation. Respiratory support: none. CV function: Normal rate. Cardiovascular support: none. Pain. Nausea status: see nursing documentation of medications. Postoperative hydration status: within normal limits. Digitally Signed by AZAEL LONG APRN-GLASS SCULLION on 10/02/2024 09:38 AM [facility]07-14-2025 Note ANITA ADMISSION HISTORY AND PHYSICIAL CHIEF COMPLAINT: HISTORY OF PRESENT ILLNESS: REVIEW OF SYSTEMS: ACTIVE PROBLEMS: (1) Obese ([id number]) MEDICATIONS: Active Inpt Meds: None Active PRN Meds: None One Time Meds: None Active IV Meds: Lactated Ringers Infusion 1,000 mL (LR 1,000 mL) Start: 10/02/24 8:24:00 EDT, Rate: 50 mL/hr, 10/02/24 8:24:00 EDT ALLERGIES: (2) HAROLDO inhibitors Wellbutrin FAMILY HISTORY: SOCIAL HISTORY: PHYSICAL EXAM: VITALS: [id number](kg) 10/02 08:4036.5--774202--62/98032.0 24 Hr Tmax: 36.5 at 10/02 08:40 36 Hr Tmax: 36.5 at 10/02 08:40 Vital Signs are the last 5 in the past 48 hours. Weights display the last 5 within 7 days. Initial Wt: 10/02 116.0 kg 255 lb Current Wt: 10/02 116.0 kg 255 lb GENERAL: HEENT: CARDIOVASCULAR: RESPIRATORY: ABDOMEN: EXREMETIES: NEUROLOGICAL: PSYCHIATRIC: LABS: No 36hr Lab Data DIAGNOSTICS: IMPRESSION: PLAN: History and Physical Update I have examined the patient; reviewed the H&P and there are no changes to the H&P unless noted below. Digitally Signed by DEMARCUS LARSEN MD on 10/02/2024 09:25 AM [facility]07-14-2025 Anesthesiology Consult note Patient: MICHAELLE MAYS Age: 44 years Sex: Female : 1980 Associated Diagnoses: None Author: AZAEL LONGGLASS SCULLION Preoperative Information Time of last food or liquid consumption: 10/01/2024 13:00:00 Anesthesia history Patient's history: negative. Family's history: negative. Review of Systems Ear/Nose/Mouth/Throat: Negative except as documented in history of present illness. Respiratory: Negative except as documented in history of present illness. Cardiovascular: Negative except as documented in history of present illness. Gastrointestinal: Negative except as documented in history of present illness. Genitourinary: Negative except as documented in history of present illness. Endocrine: Negative except as documented in history of present illness. Musculoskeletal: Negative except as documented in history of present illness. Integumentary: Negative except as documented in history of present illness. Neurologic: Negative except as documented in history of present illness. Health Status Allergies: Allergic Reactions (Selected) Severity Not Documented Wellbutrin- No reactions were documented. Nonallergic Reactions (Selected) Severity Not Documented HAROLDO inhibitors- No reactions were documented., Allergies (2) ActiveSeverityReaction HAROLDO inhibitorsNone Documented WellbutrinNone Documented Current medications: (Selected) Inpatient Medications Ordered LR 1,000 mL: 50 mL/hr, Intravenous Prescriptions Prescribed EpiPen 2-Ifrah 0.3 mg injectable kit: 0.3 mg, 1 EA, Intramuscular, AsDirected, PRN: allergic reaction, 1 kit(s), 0 Refill(s) Documented Medications Documented Misc Medication: 0 Refill(s) Opill 0.075 mg oral tablet: 0.075 mg, 1 tab(s), Oral, qDay, 28 tab(s), 0 Refill(s) Singulair 10 mg oral tablet: 10 mg, 1 tab(s), Oral, qDay, 0 Refill(s) Ventolin HFA MDI (90 mcg/inh) inhalation aerosol: 1 puff(s), Inhalation, Once, PRN: as needed for wheezing, 18 gram(s), 0 Refill(s) levocetirizine 5 mg oral tablet (NF): 5 mg, 1 tab(s), Oral, qPM, 30 tab(s), 0 Refill(s), Medications (1) Active Scheduled: (0) Continuous: (1) Lactated Ringers 1,000 mL 1,000 mL, Intravenous, 50 mL/hr PRN: (0) Problem list: No problem items selected or recorded., Active Problems (1) Obese Histories Past Medical History: No active or resolved past medical history items have been selected or recorded. Family History: Cancer Grandparent Stroke Grandparent Procedure history: Cholecystectomy ([id number]). Comments: 10/02/2024 8:34 Ramírez William RN LAPAROSCOPIC Social History: Social & Psychosocial Habits Alcohol 02/23/2017Risk Assessment: Denies Alcohol Use 10/02/2024 Use: Never Substance Abuse 02/23/2017Risk Assessment: Denies Substance Abuse 10/02/2024 Use: Current Type: Marijuana Frequency: Daily Comment: SMOKING - 10/02/2024 08:37 Ramírez Serrano RN Tobacco 10/02/2024 Tobacco Use: Former smoker, quit more Comment: QUIT 12 YEARS AGO - 10/02/2024 08:36 Ramírez Serrano RN Home/Environment 10/02/2024 Living situation: Home/Independent Nutrition/Health 10/02/2024 Type of diet: Regular Appetite Excellent Eating Difficulties None Physical Examination Vital Signs 10/02/2024 8:40 EDT Temperature Temporal Artery 36.5 DegC Peripheral Pulse Rate 80 bpm Respiratory Rate 12 br/min LOW Systolic Blood Pressure Non-Invasive 120 mmHg Diastolic Blood Pressure Non-Invasive 75 mmHg Vital Signs (last 24 hrs) Last Charted Temp Xkyvtnhc82.5 DegC (OCT 02 08:40) YAQ162 mmHg (OCT 02 08:40) DBP75 mmHg (OCT 02 08:40) Measurements from flowsheet : Measurements 10/02/2024 8:40 EDT Height 165.1 cm Height in inches 65 inch(es) Admission Weight 116 kg Weight Lbs 255.2 lb [place] Body Weight 57.00 kg Admission Body Mass Index 42.56 m2 Pain assessment: Pain Assessment 10/02/2024 8:40 EDT Primary Pain Intensity 0 Pain Scale Type 0-10 Pain scale . General: Alert and oriented. Airway: Normal neck range of motion. Mallampati classification: II (soft palate, fauces, uvula visible). Head: Normocephalic. Dentition Evaluation: Intact, Own teeth. Neck: Full range of motion. Respiratory: Lungs are clear to auscultation. Cardiovascular: Normal rate. Heart Sounds: Normal. Gastrointestinal: Soft. Musculoskeletal Normal range of motion. Integumentary: Intact, Warm, Dry. Neurologic: Alert, Oriented. Review / Management Results review: No qualifying data available , Lab results 10/02/2024 8:49 EDT SN - Proc - Anesthesia Type MAC SN - Proc - EBL 0 mL SN - Proc - Actual Procedure COLONOSCOPY 10/02/2024 8:49 EDT SN - PP - Body Position Lateral Right Side-up Standard Intra-op 10/02/2024 8:49 EDT Lactated Ringers Injection Begin Bag 1,000 mL mL 10/02/2024 8:48 EDT SN - GCD - Post-operative Diagnosis SCREENING SN - GCD - Case Level OPD Level 3 10/02/2024 8:47 EDT SN - CAt - Case Attendee SN - CAt - Case Attendee SN - CAt - Case Attendee SN - CAt - Case Attendee SN - CAt - Case Attendee SN - CAt - Case Attendee SN - CAt - Case Attendee SN - CAt - Case Attendee SN - CAt - Role Performed Welt Stitch Cleaner SN - CAt - Role Performed Procedure Nurse SN - CAt - Role Performed GLASS SCULLION SN - CAt - Role Performed Primary Surgeon 10/02/2024 8:47 EDT Antecubital Right 10/02/2024 22 gauge Peripheral IV Activity: Insert new site Peripheral IV Dressing Condition: Clean, Dry, Intact Peripheral IV Dressing Activity: Applied Peripheral IV Line Status/Patency: Flushes easily Peripheral IV Site Condition: No complications Peripheral IV Equipment: Extension set Peripheral IV Number of Attempts: 1 10/02/2024 8:40 EDT Height 165.1 cm Height in inches 65 inch(es) Admission Weight 116 kg Weight Lbs 255.2 lb [place] Body Weight 57.00 kg Admission Body Mass Index 42.56 m2 Temperature Temporal Artery 36.5 DegC Peripheral Pulse Rate 80 bpm Respiratory Rate 12 br/min LOW Systolic Blood Pressure Non-Invasive 120 mmHg Diastolic Blood Pressure Non-Invasive 75 mmHg Primary Pain Intensity 0 Pain Scale Type 0-10 Pain scale Heart Rhythm Regular Respirations Unlabored Respiratory Pattern Regular All [place]obes Breath Sounds Clear Oxygen Saturation 95 % Abdomen Description Non-distended, Symmetric Abdomen Palpation Non-Tender Urinary Elimination Voiding, no difficulties Skin Description Normal for ethnicity Skin Temperature Warm Skin Integrity Intact Characteristics of Speech Clear Level of Consciousness Alert Strength All Extremities Strong Tone All Extremities Normal Sensation All Extremities Intact Affect/Behavior Appropriate, Calm, Cooperative Orientation Oriented x 4 GI Prep [place]ab GI Prep Completed Yes GI Prep Results Liquid, Yellow Activity Status ADL Awake, Resting Standard Safety ID band on, Allergy Band on, Call device within reach, Bed in low position, Wheels locked, Upper/Half-Length side-rails up, Phone within reach, personal items within reach, Visitor atbedside, Safety level maintained 10/02/2024 8:38 EDT Allergies Yes Consent Form Signed Yes NPO Status Maintained Allergy Band on and Verified Yes Patient ID Band on and Verified Yes Implants Verified Yes Pacemaker/AICD Verified Yes Site Verified by Patient/Family Yes Last Fluid Intake 10/02/2024 7:00 Last Food Intake 10/01/2024 9:00 . Assessment and Plan [place] [employer]esthesi[employer] (ASA) physical status classification: Class III. Anesthetic Preoperative Plan Premedication: intravenous. Anesthetic technique: MAC. Induction: intravenously. Maintenance airway: Mask. Risks discussed: nausea, vomiting, headache, sore throat, dental injury, hypotension, allergic reaction, serious complications. Informed consent: signed by patient. Digitally Signed by AZAEL LONG on 10/02/2024 09:12 AM [facility]03-26-2025 Evaluation note* Diagnosis Onset Date Resolution Status Admit Date Cervical strain acute May 11:20am Thoracic myofascial strain acute June 14, 2024 11:20am Fatigue noneactive June 27 6:11am [facility] Work Phone: [phone] Instructions* Patient Instructions* Jacinta Green MD - 03/02/2024 4:29 PM EST GRADED ORAL DRUG CHALLENGE: AMOXICILLIN - Michaelle passed a 2-step observed oral challenge to amoxicillin today. No evidence for an IgE-mediated (immediate) allergy to this drug. - She may have amoxicillin and any other penicillin in the future. - No new foods, medications, or strenuous activity for the rest of the day. - The risk of having a reaction to amoxicillin in the future is considered to be the same as that of the general population. - If there are any signs/symptoms of allergic reaction (discussed in clinic) following today s appointment, please seek appropriate care. Please notify us as well. - Testing does not predict any delayed or idiosyncratic reactions. - Chart updated. [facility] History of Present illness Narrative* Jacinta Green MD - 03/02/2024 2:00 PM EST Images from the original note were not included. Allergy and Immunology All aspects of this note have been reviewed and updated. Michaelle Mays is a 43 year old female with PMHx OA, CSU who was last seen by myself on 01/27/2024,here today for follow up. Since last visit, she reports no episodes of swelling or hives since last visit. She is off all antihistamines and even stopped montelukast. She feels well and is agreeable to penicillin allergy evaluation. Documentation from Previous Encounters: January 27, 2024: the patient continues to take montelukast 10 mg daily with no vivid dreams, nightmares, or depression or anxiety. She is currently taking 25 mg of doxepin every night. She reportsgood control of her symptoms other than 1 episode of swelling and temperature that involved her tongue. She states that the swelling and the hives occur separately. She does not recall any hives with the episode of tongue swelling. She denies any unintentional weight loss. The swelling never last more than hours and resolved with prednisone. Swelling in November and went to ED in [place]. Decreased dose of doxepin to 25 mg at night and interested in 50? Takes singulair as well. In regard to her penicillin allergy, the patient recalls the episode with great detail. She reportsthat she was in her 20s when she received penicillin. She believes it was a liquid. About 2 days after completing the course of penicillin she developed an urticarial rash all over her body and presented to the urgent care. She was initially given antihistamines and steroids. The rash persisted andlooked worse within 24 hours. She then returned to urgent care where she was told her throat was swelling though she does not recall any hoarseness or difficulty swallowing. She does not recall any wheezing, difficulty breathing, change in her voice, loss of consciousness, blistering of her skin, mouth sores, fevers 2 to 3 weeks later, joint swelling, pain with urination, defecation, or eating. She is actively avoided penicillin since then. February 05, 2023 Has not had any hives. Minimal hives since last seen. Has been doing well. Taking doxepin 50 mg and singulair qhs. no angioedema. No other symptoms. No depression. has recently been sick. but overall doing well. February 02, 2022 no hives since last seen. 1 or 2 hives at weather change Taking doxepin and singulair. Tried to get EKG- they had scheduled it but they told she had to get it at [place] and was notable to do it. No illness since last seen. Seeing ENT for left hearing loss. Currently with cracking and popping. Would have pain in ear. Blocked and decreased hearing. August 08, 2021 Patient reports doing well. No hives at all since last seen. no swelling. 1 minimal episode of hives. around ankles in the fall. lasted for a couple days and only 5 of them. Using doxepin and singulair. no concerning cough. Had COVID at early year. minimal symptoms and only had sinus symptoms. No other illnesses. 04/26/20 The patient reports that she has been quite healthy since her last visit. She now rarely develops hives, and when she does, she usually only notices five. They occur around her ankles and feet. She recalls having had one hive around her heel last week. Patient trends to have them more often in the winter. Patient still takes Doxepin and Singulair with great control. She states that she has not experienced much coughing nor SOB. 04/26/19 Patient reports she has been well since last encounter. Her hives have been controlled on doxepin 75mg and singulair 10mg , she continues to have intermittent hives and swelling on her ankles, feet, and hands about once a month or less. (had done extremely well on doxepin, singulair in addition to l evocetirizine and famotidine) Last episode was last week, 1-2 hives on her hand that resolved with benadryl. Her cough has been controlled, she had two illnesses in the last 10 months. 09/21/18 Patient reports she intermittently has hive flares. Two months ago, her hives flared for 3 days. She had another flare up one month ago for 3-4 days. Her hives linger for a few days. Prior to these flares, she did not have a flare for 4 months. She has not noticed association with NSAIDs or food. She uses doxepin 75mg daily, Singulair daily, levocetirizine 5mg and pepcid twice a day with symptom control. She denies coughing and allergic rhinitis symptoms. ACT = 25 06/01/18 - Michaelle Mays is a 38 year old female here today for follow up. Pt reports hive sx after medication change from doxepin 10 mg two tablets once a days to doxepin 25mg once a day. Denies angioedema. Pt says she had no hive sx when she was taking two tablets of doxepin 10mg.Pt says she has had no breathing, cold/URI, coughing, and wheezing sx. Notes some shortness of breath. 03/30/18 - Michaelle Mays is a 37 year old female here today for follow up regarding urticaria andangioedema. ACT = 23. Currently taking Pepcid BID, levocetirizine BID and montelukast one tablet once daily. Pt reports intermittent breakthrough sx of hives, reports that she required prednisone course 3-4 times in the past year for sx. Reports that individual lesions will last less than 24 hours. Reports rare episodes of scaring associated with larger lesions. Pt reports 2 episodes of breakthrough facial swelling since previous encounter and one episode of bilateral foot and finger swelling. Extremity swelling associated with illness, no other exacerbations associated with illness. Pt is unsure if she has taken any NSAIDs during exacerbations. Pt did not notice skipping medication dose with breakthrough sx, notes sx are increased during winter season, but does not notice sx with exposure to cold air. Pt reports approximately 5-7 times since November. Pt did not notice correlation with Aleve use. Takes Aleve 2-3 times per month for sx of knee pain. Pt reports that she has not required her albuterol inhaler since previous encounter. April 02, 2017 - Michaelle Mays presents for follow up. ACT- 25 had moved an dhad been doing well. no urticaria or angioedema. occasional urticaria. Stopped all medications completely. 1-4 weeks later with angioedema. Lip and tongue with swelling off antihistamines. had gone to ER- had had steroids, antihistamines, epipenephrine. had improved while there in ER. had started at work with tongue swelling. severe swelling. Restarted all medications. pepcid once a day. claritin once a day levoceterizine and singulair with once a day. no sedation. occasional hives on ankles and < 24 hours. November 06, 2015 - Michaelle Negron presents for follow up. wedding in 1 month. had had hives 10/25. had been driving home from work- right back of throat with sore throat.developed hives next week. resolved on own. was having laryngitis symptoms. laryngitis symptoms resolved in 24 hours. no new changes. no illness. takes aleve intermittently. none recently. had couple episodes. feels it may be worse with stress and heat. worse with those symptoms. resolved in 24 hours. will add claritin. July 25, 2015 - Michaelle Negron presents for follow up. hives occurring April and now. resolved for hives will last for 48 hours. Current hives started yesterday- right thigh and ankle. will last couple days. in between will resolve. occasional on forehead. no illness recently. no new foods or medicaitons. daily singulair, levocetirizine bid and pepcid 20 mg bid. hives will occur intermittent. less than last summer. no NSAIDS recently. April 05, 2015 - Michaelle Negron presents for follow up. Novemer with tongue swelling. No illness. Midnight had awoke with tongue swelling. 3 am with persistent symptoms. Had had hives at that time. Gets intermittent hives. Will come and go. Resolved after period of time. Has had intermittent hives. no dermatographism. No worse in cold air. Week prior to ER- aleve 2-3 days. no new foods, no illness. Had been taking singulair in January. Not on pepcid in January. December 20, 2014 - Michaelle Negron presents for follow up. Last Wednesday had had reaction. Wednesday had been sleeping- thought sore throat. Nothing different that evening. next day with slight swelling. had taken singulair and levoceterizine that evening. next am took prednisone with improvement. No ER visit. Had been every 2 weeks previously. Has been 10 months since previous. 6 ducks/ 6 turkeys. None since March. March 30, 2014 - Michaelle Negron presents for follow up. Last Wednesday with swelling of tongue. took zyrtec with improvement. Occurred in am 5 am. Recurred later that day then ER. No illness or change in foods night prior. Wednesday night- 2 days prior had taken naproxen.There has been other times that has taken naproxen since last previous. Had not been using pepcid. January 11, 2014 Consultation requested by Duane Stauffer MD for an opinion regarding angioedema.My final recommendations will be communicated back to the requesting physician by way of shared Medical record or letter to requesting physician via US mail. The patient is a 33 year old female patient who complains of intermittent episodes of angioedema. Developed swelling of tongue started September. After moving into boyfriend home. Awoke in am with righttongue swelling. Took benadryl with improevement. Every time it has occurred will worsen. Has had 4-5 times. Can be facial swelling, tongue, and throat swelling. No difficulty talking or swallowing. Dec 14- in pm, had eaten ham sandwich, macaroni salad, corn puffs (had eaten next day without difficulty). after dinner had had right tongue swelling. took benadryl 12.5 mg without improvement. 2 am with worsening of symptoms. No previous symptoms. No hives. No food association. One occasion had occurred at work. Had started at work. Had not eaten anything new. Does not changediet. Can not determine any causes. [place]. 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 Feeding them- cracked corn, lang mash. Would spend weekends prior without symptoms. Moved into boyfriend;s home 1 week prior. No new medications. Takes Naprosyn (last took it last night). no symptoms last night. Takes Aleve intermittently. unsure if exacerbates symptoms. Works at [employer]. NO FMH of angioedema. No liver or thyroid disease. Review of patient's allergies indicates: Bupropion/Diethylpr* Comment:wellbrutin--rash Penicillins Comment:augmentin- 10 years ago. had had hives and generalized angioedema. Had finished the medications by 2 days then had symptoms. Lasted for 24 hours. no fevers, or achiness. No AR. Nasal polyps: The patient has never had nasal polyps. Asthma: The patient has no history of asthma. Sinusitis: The patient does not suffer from frequent sinopulmonary infections. Latex Allergy: DENIES Contact Dermatitis/Eczema: has a history Food Allergies/Reactions: DENIES Hymenoptera Reaction: denies CAT scan: DENIES Environmental history:older home. Built in . [place]- 22 ducks; 8-10 turkeys Pets in the home: 2 cats Scott: [id number] carpeting Air conditioning: No air conditioning Heating: Forced hot air Basement: Dry basement Dust mite controls: Dust mite controls are not in place. Tobacco smoke: No exposure in the home Current Outpatient Medications Medication Sig montelukast (SINGULAIR) 10 mg tablet Take 1 tablet by mouth daily at bedtime. doxepin capsule 25 mg Take 1 capsule by mouth at bedtime as needed. cetirizine (ZYRTEC) 10 mg tablet Take 1 tablet by mouth once daily. Can increase for to 2 tablets twice daily for hives and swelling. levonorgestrel-ethinyl estradiol (ALTAVERA, 28,) 0.15-0.03 mg per tab Take 1 tablet by mouth once daily. fluticasone (FLONASE) 50 mcg/actuation nasal spray Use 2 Sprays in each nostril once daily. Rinse mouth after use. No current facility-administered medications for this visit. 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 Morbid obesity (HCC) Plantar fasciitis Primary osteoarthritis of right knee PAST SURGICAL HISTORY Procedure Laterality Date INDUCED HX 2009 LAPAROSCOPY SURG CHOLECYSTECTOMY 2013 Cholecystectomy, lap PAST SURGICAL HISTORY OF 1998 vaginal wart removal VAGINOSCOPY 2017 FAMILY HISTORY Problem Relation Age of Onset other (skin Cancer) Mother on face, melanoma Stroke Maternal Grandmother Cancer Maternal Grandfather throat Hypertension Maternal Grandfather Social History Tobacco Use Smoking status: Former Packs/day: 0.00 Years: 0.5 packs/day for 8.0 years (4.0 ttl pk-yrs) Types: Cigarettes Start date: 08/29/2004 Quit date: 08/29/2012 Years since quittin.5 Smokeless tobacco: Never Pulse 90, weight 121.4 kg (267 lb 10.2 oz), last menstrual period 01/03/2024, SpO2 100%. Body mass index is 43.01 kg/m . Physical Exam Vitals reviewed. Constitutional: Appearance: She is not ill-appearing or toxic-appearing. HENT: Head: Normocephalic and atraumatic. Right Ear: Tympanic membrane, ear canal and external ear normal. Left Ear: Tympanic membrane, ear canal and external ear normal. Nose: Nose normal. Mouth/Throat: Mouth: Mucous membranes are moist. Pharynx: Oropharynx is clear. Eyes: General: No scleral icterus. Conjunctiva/sclera: Conjunctivae normal. Cardiovascular: Rate and Rhythm: Normal rate and regular rhythm. Pulmonary: Effort: Pulmonary effort is normal. Breath sounds: Normal breath sounds. Skin: General: Skin is warm and dry. Findings: No rash. Neurological: Mental Status: She is alert. Psychiatric: Behavior: Behavior normal. Diagnostic Testing: Labs Latest Ref [facility] 02/08/2023 WBC 3.70 - 11.00 k/uL 9.60 RBC 3.90 - 5.20 m/uL 4.09 Hemoglobin 11.5 - 15.5 g/dL 13.4 Hematocrit 36.0 - 46.0 % 41.2 MCV 80.0 - 100.0 fL 100.7 (H) MCH 26.0 - 34.0 pg 32.8 MCHC 30.5 - 36.0 g/dL 32.5 RDW-CV 11.5 - 15.0 % 13.2 Platelet Count 150 - 400 k/uL 361 MPV 9.0 - 12.7 fL 11.0 Neut% % 61.3 Abs Neut (ANC) 1.45 - 7.50 k/uL 5.88 Lymph% % 30.4 Abs Lymph 1.00 - 4.00 k/uL 2.92 [place]% % 6.5 Abs [place] <0.87 k/uL 0.62 Eosin% % 0.9 Abs Eosin <0.46 k/uL 0.09 Baso% % 0.7 Abs Baso <0.11 k/uL 0.07 Immature Gran % % 0.2 IMMATURE GRANS (ABS) <0.10 k/uL <0.03 NRBC /100 WBC 0.0 Absolute nRBC <0.01 k/uL <0.01 DTYPE Auto Protein, Total 6.3 - 8.0 g/dL 7.1 Albumin 3.9 - 4.9 g/dL 4.2 Calcium 8.5 - 10.2 mg/dL 9.2 Bilirubin, Total 0.2 - 1.3 mg/dL 0.2 Alkaline Phosphatase 34 - 123 U/L 72 AST 13 - 35 U/L 23 ALT 7 - 38 U/L 22 Glucose 74 - 99 mg/dL 103 (H) BUN 7 - 21 mg/dL 14 Creatinine 0.58 - 0.96 mg/dL 0.91 Sodium 136 - 144 mmol/L 138 Potassium 3.7 - 5.1 mmol/L 4.2 Chloride 97 - 105 mmol/L 102 CO2 22 - 30 mmol/L 25 Anion Gap 9 - 18 mmol/L 11 eGFR >=60 mL/min/1.73m 80 Diagnostic Testing: I personally reviewed this patient's results and interpreted the results as follows. Please see nurse's note for more details. After discussing the process of skin prick testing, benefits, and risks, the patient verbally agreed to proceed with skin prick testing and intradermal testing. PENICILLIN SKIN TESTING Interpreted By: Jacinta Green M.D. SPT: No sensitization to penicillin G, or pre-pen IDT: No sensitization to penicillin G, or pre-pen ORAL CHALLENGE TO AMOXICILLIN After discussing the indications, benefits, risks, and alternatives, the patient consented both verbally and in written form. Step 1: Give 0.5 mL of Amoxicillin. Observe 30 minutes. If no evidence of IgE- mediated reaction, proceed to step 2. Step 2: Give 4.5mL of Amoxicillin. Observe for 31 minutes. Total dose: 250 mg Total volume: 5 mL After completing step 2, there was no evidence of any IgE mediated reaction. Outcome: Passed oral challenge to amoxicillin. Ingestion start time: 1523 Ingestion end time: 1635 ASSESSMENT AND PLAN: 43-year-old female with past medical history of osteoarthritis who presents for follow-up. 1. Allergy to penicillin - ICD9: V14.0, ICD10: Z88.0 (primary diagnosis) - Michaelle passed a 2-step observed oral challenge to amoxicillin today. No evidence for an IgE-mediated (immediate) allergy to this drug. - She may have amoxicillin and any other penicillin in the future. - No new foods, medications, or strenuous activity for the rest of the day. - The risk of having a reaction to amoxicillin in the future is considered to be the same as that of the general population. - If there are any signs/symptoms of allergic reaction (discussed in clinic) following today s appointment, please seek appropriate care. Please notify us as well. - Testing does not predict any delayed or idiosyncratic reactions. - Chart updated. 2. Urticaria - ICD9: 708.9, ICD10: L50.9 3. Angioedema, subsequent encounter - ICD9: V58.89, 995.1, ICD10: T78.3XXD - Previous CBC and CMP within normal limits. Plan: > Discussed daily use of cetirizine 10 mg. Discussed as needed doxepin 25 mg at night. Continue singular 10 mg. > Neuropsychiatric side effects discussed with patient. She is not exhibiting any. > Continue to avoid NSAIDs and HAROLDO inhibitors. Of note the patient has taken naproxen without any symptoms. She may use now. > The following labs were ordered: - C1 ESTERASE INHIB FU - C1 ESTERASE INHIBIT - C1Q COMPLEMENT PROT - C4 COMPLEMENT - COMPLETE BLOOD COUNT AND DIFFERENTIAL - COMPREHENSIVE METABOLIC PANEL Discussed medication dosage, usage, side effects, and goals of treatment in detail. Follow-up: Return in about 1 year (around 03/02/2025) for Hives. Patient advised to call or return sooner should current symptoms worsen or fail to improve or if new symptoms or problems arise. Jacinta Green MD Allergy and Immunology [facility] I spent a total of >40 minutes on the date of the service which included preparing to see the patient, [id number] patient care, completing clinical documentation, obtaining and/or reviewing separately obtained history, performing a medically appropriate examination, counseling and educating the patient/family/caregiver, ordering medications, tests, or procedures, and independently interpreting results (not separately reported). [facility] NoteHNO ID: [id number] Author: JACINTA GREEN MD Service: ? Author Type: Physician Type: Progress Notes Filed: 03/02/2024 17:09 Note Text: Allergy and Immunology All aspects of this note have been reviewed and updated. Michaelle Mays is a 43 year old female with PMHx OA, CSU who was last seen by myself on 01/27/2024, here today for follow up. Since last visit, she reports no episodes of swelling or hives since last visit. She is off all antihistamines and even stopped montelukast. She feels well and is agreeable to penicillin allergy evaluation. Documentation from Previous Encounters: January 27, 2024: the patient continues to take montelukast 10 mg daily with no vivid dreams, nightmares, or depression or anxiety. She is currently taking 25 mg of doxepin every night. She reports good control of her symptoms other than 1 episode of swelling and temperature that involved her tongue. She states that the swelling and the hives occur separately. She does not recall any hives with the episode of tongue swelling. She denies any unintentional weight loss. The swelling never last more than hours and resolved with prednisone. Swelling in November and went to ED in [place]. Decreased dose of doxepin to 25 mg at night and interested in 50? Takes singulair as well. In regard to her penicillin allergy, the patient recalls the episode with great detail. She reports that she was in her 20s when she received penicillin. She believes it was a liquid. About 2 days after completing the course of penicillin she developed an urticarial rash all over her body and presented to the urgent care. She was initially given antihistamines and steroids. The rash persisted and looked worse within 24 hours. She then returned to urgent care where she was told her throat was swelling though she does not recall any hoarseness or difficulty swallowing. She does not recall any wheezing, difficulty breathing, change in her voice, loss of consciousness, blistering of her skin, mouth sores, fevers 2 to 3 weeks later, joint swelling, pain with urination, defecation, or eating. She is actively avoided penicillin since then. February 05, 2023 Has not had any hives. Minimal hives since last seen. Has been doing well. Taking doxepin 50 mg and singulair qhs. no angioedema. No other symptoms. No depression. has recently been sick. but overall doing well. February 02, 2022 no hives since last seen. 1 or 2 hives at weather change Taking doxepin and singulair. Tried to get EKG- they had scheduled it but they told she had to get it at [place] and was not able to do it. No illness since last seen. Seeing ENT for left hearing loss. Currently with cracking and popping. Would have pain in ear. Blocked and decreased hearing. August 08, 2021 Patient reports doing well. No hives at all since last seen. no swelling. 1 minimal episode of hives. around ankles in the fall. lasted for a couple days and only 5 of them. Using doxepin and singulair. no concerning cough. Had COVID at early year. minimal symptoms and only had sinus symptoms. No other illnesses. 04/26/20 The patient reports that she has been quite healthy since her last visit. She now rarely develops hives, and when she does, she usually only notices five. They occur around her ankles and feet. She recalls having had one hive around her heel last week. Patient trends to have them more often in the winter. Patient still takes Doxepin and Singulair with great control. She states that she has not experienced much coughing nor SOB. 04/26/19 Patient reports she has been well since last encounter. Her hives have been controlled on doxepin 75mg and singulair 10mg , she continues to have intermittent hives and swelling on her ankles, feet, and hands about once a month or less. (had done extremely well on doxepin, singulair in addition to levocetirizine and famotidine) Last episode was last week, 1-2 hives on her hand that resolved with benadryl. Her cough has been controlled, she had two illnesses in the last 10 months. 09/21/18 Patient reports she intermittently has hive flares. Two months ago, her hives flared for 3 days. She had another flare up one month ago for 3-4 days. Her hives linger for a few days. Prior to these flares, she did not have a flare for 4 months. She has not noticed association with NSAIDs or food. She uses doxepin 75mg daily, Singulair daily, levocetirizine 5mg and pepcid twice a day with symptom control. She denies coughing and allergic rhinitis symptoms. ACT = 25 06/01/18 - Michaelle Sincere Mays is a 38 year old female here today for follow up. Pt reports hive sx after medication change from doxepin 10 mg two tablets once a days to doxepin 25mg once a day. Denies angioedema. Pt says she had no hive sx when she was taking two tablets of doxepin 10mg.Pt says she has had no breathing, cold/URI, coughing, and wheezing sx. (more content not included)...[facility]11-07-2024 NoteHNO ID: [id number] Author: ?, ?, ? Service: ? Author Type: ? Type: Progress Notes Filed: 01/30/2024 16:27 Note Text: [facility] History of Present illness Narrative* Cele Alanis - 01/27/2024 4:04 PM EST Patient has been scheduled * Jacinta Green MD - 01/27/2024 3:30 PM EST Images from the original note were not included. Allergy and Immunology This is a virtual visit using Ventiveom Video Visit. It required patient- provider interaction for the medical decision making as documented below. I have communicated my name and active licensure. The patient's identity and physical location wereverified at the time of this visit. Either the patient or their legal account representative has been informed of the risks and benefits of -- and alternatives to -- treatment through a remote evaluation andconsents to proceed with the evaluation remotely. All aspects of this note have been reviewed and updated. Michaelle Mays is a 43 year old female who was last seen by Dr. Johns on 02/05/2023, here today forfollow up. Since last visit, the patient continues to take montelukast 10 mg daily with no vivid dreams, nightmares, or depression or anxiety. She is currently taking 25 mg of doxepin every night. She reports good control of her symptoms other than 1 episode of swelling and temperature that involved her tongue. She states that the swelling and the hives occur separately. She does not recall any hives with the episode of tongue swelling. She denies any unintentional weight loss. The swelling never last more than hours and resolved with prednisone. Swelling in November and went to ED in [place]. Decreased dose of doxepin to 25 mg at night and interested in 50? Takes singulair as well. In regard to her penicillin allergy, the patient recalls the episode with great detail. She reportsthat she was in her 20s when she received penicillin. She believes it was a liquid. About 2 days after completing the course of penicillin she developed an urticarial rash all over her body and presented to the urgent care. She was initially given antihistamines and steroids. The rash persisted andlooked worse within 24 hours. She then returned to urgent care where she was told her throat was swelling though she does not recall any hoarseness or difficulty swallowing. She does not recall any wheezing, difficulty breathing, change in her voice, loss of consciousness, blistering of her skin, mouth sores, fevers 2 to 3 weeks later, joint swelling, pain with urination, defecation, or eating. She is actively avoided penicillin since then. Documentation from Previous Encounters: February 05, 2023 Has not had any hives. Minimal hives since last seen. Has been doing well. Taking doxepin 50 mg and singulair qhs. no angioedema. No other symptoms. No depression. has recently been sick. but overall doing well. February 02, 2022 no hives since last seen. 1 or 2 hives at weather change Taking doxepin and singulair. Tried to get EKG- they had scheduled it but they told she had to get it at [place] and was notable to do it. No illness since last seen. Seeing ENT for left hearing loss. Currently with cracking and popping. Would have pain in ear. Blocked and decreased hearing. August 08, 2021 Patient reports doing well. No hives at all since last seen. no swelling. 1 minimal episode of hives. around ankles in the fall. lasted for a couple days and only 5 of them. Using doxepin and singulair. no concerning cough. Had COVID at early year. minimal symptoms and only had sinus symptoms. No other illnesses. 04/26/20 The patient reports that she has been quite healthy since her last visit. She now rarely develops hives, and when she does, she usually only notices five. They occur around her ankles and feet. She recalls having had one hive around her heel last week. Patient trends to have them more often in the winter. Patient still takes Doxepin and Singulair with great control. She states that she has not experienced much coughing nor SOB. 04/26/19 Patient reports she has been well since last encounter. Her hives have been controlled on doxepin 75mg and singulair 10mg , she continues to have intermittent hives and swelling on her ankles, feet, and hands about once a month or less. (had done extremely well on doxepin, singulair in addition to l evocetirizine and famotidine) Last episode was last week, 1-2 hives on her hand that resolved with benadryl. Her cough has been controlled, she had two illnesses in the last 10 months. 09/21/18 Patient reports she intermittently has hive flares. Two months ago, her hives flared for 3 days. She had another flare up one month ago for 3-4 days. Her hives linger for a few days. Prior to these flares, she did not have a flare for 4 months. She has not noticed association with NSAIDs or food. She uses doxepin 75mg daily, Singulair daily, levocetirizine 5mg and pepcid twice a day with symptom control. She denies coughing and allergic rhinitis symptoms. ACT = 25 06/01/18 - Michaelle Mays is a 38 year old female here today for follow up. Pt reports hive sx after medication change from doxepin 10 mg two tablets once a days to doxepin 25mg once a day. Denies angioedema. Pt says she had no hive sx when she was taking two tablets of doxepin 10mg.Pt says she has had no breathing, cold/URI, coughing, and wheezing sx. Notes some shortness of breath. 03/30/18 - Michealle Mays is a 37 year old female here today for follow up regarding urticaria andangioedema. ACT = 23. Currently taking Pepcid BID, levocetirizine BID and montelukast one tablet once daily. Pt reports intermittent breakthrough sx of hives, reports that she required prednisone course 3-4 times in the past year for sx. Reports that individual lesions will last less than 24 hours. Reports rare episodes of scaring associated with larger lesions. Pt reports 2 episodes of breakthrough facial swelling since previous encounter and one episode of bilateral foot and finger swelling. Extremity swelling associated with illness, no other exacerbations associated with illness. Pt is unsure if she has taken any NSAIDs during exacerbations. Pt did not notice skipping medication dose with breakthrough sx, notes sx are increased during winter season, but does not notice sx with exposure to cold air. Pt reports approximately 5-7 times since November. Pt did not notice correlation with Aleve use. Takes Aleve 2-3 times per month for sx of knee pain. Pt reports that she has not required her albuterol inhaler since previous encounter. April 02, 2017 - Michaelle Mays presents for follow up. ACT- 25 had moved an dhad been doing well. no urticaria or angioedema. occasional urticaria. Stopped all medications completely. 1-4 weeks later with angioedema. Lip and tongue with swelling off antihistamines. had gone to ER- had had steroids, antihistamines, epipenephrine. had improved while there in ER. had started at work with tongue swelling. severe swelling. Restarted all medications. pepcid once a day. claritin once a day levoceterizine and singulair with once a day. no sedation. occasional hives on ankles and < 24 hours. November 06, 2015 - Michaelle Negron presents for follow up. wedding in 1 month. had had hives 10/25. had been driving home from work- right back of throat with sore throat.developed hives next week. resolved on own. was having laryngitis symptoms. laryngitis symptoms resolved in 24 hours. no new changes. no illness. takes aleve intermittently. none recently. had couple episodes. feels it may be worse with stress and heat. worse with those symptoms. resolved in 24 hours. will add claritin. July 25, 2015 - Michaelle Negron presents for follow up. hives occurring April and now. resolved for hives will last for 48 hours. Current hives started yesterday- right thigh and ankle. will last couple days. in between will resolve. occasional on forehead. no illness recently. no new foods or medicaitons. daily singulair, levocetirizine bid and pepcid 20 mg bid. hives will occur intermittent. less than last summer. no NSAIDS recently. April 05, 2015 - Michaelle Negron presents for follow up. Novem with tongue swelling. No illness. Midnight had awoke with tongue swelling. 3 am with persistent symptoms. Had had hives at that time. Gets intermittent hives. Will come and go. Resolved after period of time. Has had intermittent hives. no dermatographism. No worse in cold air. Week prior to ER- aleve 2-3 days. no new foods, no illness. Had been taking singulair in January. Not on pepcid in January. December 20, 2014 - Michaelle Negron presents for follow up. Last Wednesday had had reaction. Wednesday had been sleeping- thought sore throat. Nothing different that evening. next day with slight swelling. had taken singulair and levoceterizine that evening. next am took prednisone with improvement. No ER visit. Had been every 2 weeks previously. Has been 10 months since previous. 6 ducks/ 6 turkeys. None since March. March 30, 2014 - Michaelle Negron presents for follow up. Last Wednesday with swelling of tongue. took zyrtec with improvement. Occurred in am 5 am. Recurred later that day then ER. No illness or change in foods night prior. Wednesday night- 2 days prior had taken naproxen.There has been other times that has taken naproxen since last previous. Had not been using pepcid. January 11, 2014 Consultation requested by Duane Stauffer MD for an opinion regarding angioedema.My final recommendations will be communicated back to the requesting physician by way of shared Medical record or letter to requesting physician via US mail. The patient is a 33 year old female patient who complains of intermittent episodes of angioedema. Developed swelling of tongue started September. After moving into boyfriend home. Awoke in am with righttongue swelling. Took benadryl with improevement. Every time it has occurred will worsen. Has had 4-5 times. Can be facial swelling, tongue, and throat swelling. No difficulty talking or swallowing. Dec 14- in pm, had eaten ham sandwich, macaroni salad, corn puffs (had eaten next day without difficulty). after dinner had had right tongue swelling. took benadryl 12.5 mg without improvement. 2 am with worsening of symptoms. No previous symptoms. No hives. No food association. One occasion had occurred at work. Had started at work. Had not eaten anything new. Does not changediet. Can not determine any causes. [place]. 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 Feeding them- cracked corn, lang mash. Would spend weekends prior without symptoms. Moved into boyfriend;s home 1 week prior. No new medications. Takes Naprosyn (last took it last night). no symptoms last night. Takes Aleve intermittently. unsure if exacerbates symptoms. Works at [employer]. NO FMH of angioedema. No liver or thyroid disease. Review of patient's allergies indicates: Bupropion/Diethylpr* Comment:wellbrutin--rash Penicillins Comment:augmentin- 10 years ago. had had hives and generalized angioedema. Had finished the medications by 2 days then had symptoms. Lasted for 24 hours. no fevers, or achiness. No AR. Nasal polyps: The patient has never had nasal polyps. Asthma: The patient has no history of asthma. Sinusitis: The patient does not suffer from frequent sinopulmonary infections. Latex Allergy: DENIES Contact Dermatitis/Eczema: has a history Food Allergies/Reactions: DENIES Hymenoptera Reaction: denies CAT scan: DENIES Environmental history:older home. Built in . [place]- 22 ducks; 8-10 turkeys Pets in the home: 2 cats Scott: [id number] carpeting Air conditioning: No air conditioning Heating: Forced hot air Basement: Dry basement Dust mite controls: Dust mite controls are not in place. Tobacco smoke: No exposure in the home PAST MEDICAL HISTORY Diagnosis Date Abnormal Pap smear of cervix Angio-edema 01/02/2014 ASCUS of cervix with negative high risk HPV 04/2019 History of tobacco use 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 Morbid obesity (HCC) Plantar fasciitis Primary osteoarthritis of right knee PAST SURGICAL HISTORY Procedure Laterality Date INDUCED HX 2009 LAPAROSCOPY SURG CHOLECYSTECTOMY 2013 Cholecystectomy, lap PAST SURGICAL HISTORY OF 1998 vaginal wart removal VAGINOSCOPY 2017 FAMILY HISTORY Problem Relation Age of Onset other (skin Cancer) Mother on face, melanoma Stroke Maternal Grandmother Cancer Maternal Grandfather throat Hypertension Maternal Grandfather Social History Tobacco Use Smoking status: Former Packs/day: 0.00 Years: 0.5 packs/day for 8.0 years (4.0 ttl pk-yrs) Types: Cigarettes Start date: 08/29/2004 Quit date: 08/29/2012 Years since quittin.4 Smokeless tobacco: Never Last menstrual period 01/03/2024. There is no height or weight on file to calculate BMI. Physical Exam Constitutional: Appearance: She is not ill-appearing. HENT: Right Ear: External ear normal. Left Ear: External ear normal. Nose: Nose normal. Mouth/Throat: Mouth: Mucous membranes are moist. Pharynx: Oropharynx is clear. Eyes: Conjunctiva/sclera: Conjunctivae normal. Pulmonary: Effort: Pulmonary effort is normal. Skin: Findings: No rash. Neurological: Mental Status: She is alert. Diagnostic Testing: Labs Latest Ref [facility] 02/08/2023 WBC 3.70 - 11.00 k/uL 9.60 RBC 3.90 - 5.20 m/uL 4.09 Hemoglobin 11.5 - 15.5 g/dL 13.4 Hematocrit 36.0 - 46.0 % 41.2 MCV 80.0 - 100.0 fL 100.7 (H) MCH 26.0 - 34.0 pg 32.8 MCHC 30.5 - 36.0 g/dL 32.5 RDW-CV 11.5 - 15.0 % 13.2 Platelet Count 150 - 400 k/uL 361 MPV 9.0 - 12.7 fL 11.0 Neut% % 61.3 Abs Neut (ANC) 1.45 - 7.50 k/uL 5.88 Lymph% % 30.4 Abs Lymph 1.00 - 4.00 k/uL 2.92 Bamberg% % 6.5 Abs Bamberg <0.87 k/uL 0.62 Eosin% % 0.9 Abs Eosin <0.46 k/uL 0.09 Baso% % 0.7 Abs Baso <0.11 k/uL 0.07 Immature Gran % % 0.2 IMMATURE GRANS (ABS) <0.10 k/uL <0.03 NRBC /100 WBC 0.0 Absolute nRBC <0.01 k/uL <0.01 DTYPE Auto Protein, Total 6.3 - 8.0 g/dL 7.1 Albumin 3.9 - 4.9 g/dL 4.2 Calcium 8.5 - 10.2 mg/dL 9.2 Bilirubin, Total 0.2 - 1.3 mg/dL 0.2 Alkaline Phosphatase 34 - 123 U/L 72 AST 13 - 35 U/L 23 ALT 7 - 38 U/L 22 Glucose 74 - 99 mg/dL 103 (H) BUN 7 - 21 mg/dL 14 Creatinine 0.58 - 0.96 mg/dL 0.91 Sodium 136 - 144 mmol/L 138 Potassium 3.7 - 5.1 mmol/L 4.2 Chloride 97 - 105 mmol/L 102 CO2 22 - 30 mmol/L 25 Anion Gap 9 - 18 mmol/L 11 eGFR >=60 mL/min/1.73m 80 Legend: (H) High ASSESSMENT AND PLAN: 43-year-old female with past medical history of osteoarthritis who presents for follow-up. 1. Urticaria 2. Angioedema, subsequent encounter - Previous CBC and CMP within normal limits. Plan: > Discussed daily use of cetirizine 10 mg. Discussed as needed doxepin 25 mg at night. Continue singular 10 mg. > Neuropsychiatric side effects discussed with patient. She is not exhibiting any. > Continue to avoid NSAIDs and HAROLDO inhibitors. Of note the patient has taken naproxen without any symptoms. She may use now. > May consider repeat CBC, CMP as well as complement levels. 3. Allergy to penicillin - ICD9: V14.0, ICD10: Z88.0 - Discussed natural history of penicillin allergy as well as association with increased morbidity and mortality with penicillin allergy. - Discussed evaluation process including skin prick testing, intradermal, and possible oral challenge. Plan: > Patient agreeable to testing and evaluation. Message sent to type cutter. > Continue to avoid penicillins at this time. Discussed medication dosage, usage, side effects, and goals of treatment in detail. Follow-up: Return for PCN evaluation.. Patient advised to call or return sooner should current symptoms worsen or fail to improve or if new symptoms or problems arise. Jacinta Green MD Allergy and Immunology [facility] Medical Decision Making: Problems: Moderate: 2+ stable chronic illnesses Data: Unique test result(s) reviewed: 2 Unique test(s) ordered: 1 Risk: Moderate: Drug management Medical Decision Making Level: 4 - Moderate documented in [facility] NoteHNO ID: [id number] Author: JACINTA GREEN MD Service: ? Author Type: Physician Type: Progress Notes Filed: 01/30/2024 16:27 Note Text: Allergy and Immunology This is a virtual visit using Ventiveom Video Visit. It required patient-provider interaction for the medical decision making as documented below. I have communicated my name and active licensure. The patient's identity and physical location were verified at the time of this visit. Either the patient or their legal account representative has been informed of the risks and benefits of -- and alternatives to -- treatment through a remote evaluation and consents to proceed with the evaluation remotely. All aspects of this note have been reviewed and updated. Michaelle Mays is a 43 year old female who was last seen by Dr. Johns on 02/05/2023, here today for follow up. Since last visit, the patient continues to take montelukast 10 mg daily with no vivid dreams, nightmares, or depression or anxiety. She is currently taking 25 mg of doxepin every night. She reports good control of her symptoms other than 1 episode of swelling and temperature that involved her tongue. She states that the swelling and the hives occur separately. She does not recall any hives with the episode of tongue swelling. She denies any unintentional weight loss. The swelling never last more than hours and resolved with prednisone. Swelling in November and went to ED in [place]. Decreased dose of doxepin to 25 mg at night and interested in 50? Takes singulair as well. In regard to her penicillin allergy, the patient recalls the episode with great detail. She reports that she was in her 20s when she received penicillin. She believes it was a liquid. About 2 days after completing the course of penicillin she developed an urticarial rash all over her body and presented to the urgent care. She was initially given antihistamines and steroids. The rash persisted and looked worse within 24 hours. She then returned to urgent care where she was told her throat was swelling though she does not recall any hoarseness or difficulty swallowing. She does not recall any wheezing, difficulty breathing, change in her voice, loss of consciousness, blistering of her skin, mouth sores, fevers 2 to 3 weeks later, joint swelling, pain with urination, defecation, or eating. She is actively avoided penicillin since then. Documentation from Previous Encounters: February 05, 2023 Has not had any hives. Minimal hives since last seen. Has been doing well. Taking doxepin 50 mg and singulair qhs. no angioedema. No other symptoms. No depression. has recently been sick. but overall doing well. February 02, 2022 no hives since last seen. 1 or 2 hives at weather change Taking doxepin and singulair. Tried to get EKG- they had scheduled it but they told she had to get it at [place] and was not able to do it. No illness since last seen. Seeing ENT for left hearing loss. Currently with cracking and popping. Would have pain in ear. Blocked and decreased hearing. August 08, 2021 Patient reports doing well. No hives at all since last seen. no swelling. 1 minimal episode of hives. around ankles in the fall. lasted for a couple days and only 5 of them. Using doxepin and singulair. no concerning cough. Had COVID at early year. minimal symptoms and only had sinus symptoms. No other illnesses. 04/26/20 The patient reports that she has been quite healthy since her last visit. She now rarely develops hives, and when she does, she usually only notices five. They occur around her ankles and feet. She recalls having had one hive around her heel last week. Patient trends to have them more often in the winter. Patient still takes Doxepin and Singulair with great control. She states that she has not experienced much coughing nor SOB. 04/26/19 Patient reports she has been well since last encounter. Her hives have been controlled on doxepin 75mg and singulair 10mg , she continues to have intermittent hives and swelling on her ankles, feet, and hands about once a month or less. (had done extremely well on doxepin, singulair in addition to levocetirizine and famotidine) Last episode was last week, 1-2 hives on her hand that resolved with benadryl. Her cough has been controlled, she had two illnesses in the last 10 months. 09/21/18 Patient reports she intermittently has hive flares. Two months ago, her hives flared for 3 days. She had another flare up one month ago for 3-4 days. Her hives linger for a few days. Prior to these flares, she did not have a flare for 4 months. She has not noticed association with NSAIDs or food. She uses doxepin 75mg daily, Singulair daily, levocetirizine 5mg and pepcid twice a day with symptom control. She denies coughing and allergic rhinitis symptoms. ACT = 25 06/01/18 - Michaelle Mays is a 38 year old female here today for follow up. (more content not included)...[facility]11-05-2024 Telephone encounter Note* Telephone Encounter - Cele Alanis - 01/25/2024 12:07 PM EST Patient has been scheduled with Dr Green on 01/26 Virtually. [facility]11-05-2024 Miscellaneous Notes* Telephone Encounter - Cele Alanis - 01/25/2024 12:07 PM EST Patient has been scheduled with Dr Green on 01/26 Virtually. * Telephone Encounter - Cele Alanis - 01/25/2024 9:36 AM EST Left VM for patient to return call to schedule with another provider as Dr Andreas armas [facility] is not until 04/14 and her 1st in person is not until May * Telephone Encounter - Luisana Dewitt MA - 01/25/2024 8:04 AM EST [place]: 02/05/23 Last in person OV: 04/26/19 [facility] Telephone encounter Note * Telephone Encounter - Cele Alanis - 01/25/2024 9:36 AM EST Left VM for patient to return call to schedule with another provider as Dr Andreas armas [facility] is not until 04/14 and her 1st in person is not until May [facility]11-05-2024 Telephone encounter Note* Telephone Encounter - Luisana Dewitt MA - 01/25/2024 8:04 AM EST [place]: 02/05/23 Last in person OV: 04/26/19 [facility]11-04-2024 Telephone encounter Note* Telephone Encounter - Luisana Dewitt MA - 01/24/2024 2:57 PM EST [place]: 02/05/23 Advised patient to schedule yearly appt as nothing is scheduled as of now. [facility]11-04-2024 Miscellaneous Notes* Telephone Encounter - Luisana Dewitt MA - 01/24/2024 2:57 PM EST [place]: 02/05/23 Advised patient to schedule yearly appt as nothing is scheduled as of now. documented in this encounterK[facility]24 NoteHNO ID: [id number] Author: MERLYN MEDEL PA-C Service: ? Author Type: Physician Help Desk Team Leader Type: Progress Notes Filed: 01/14/2024 12:06 Note Text: This note was created using Centrafuseriter. Gaby Mays is a 43 year old female. HPI Patient presents with nasal congestion, headache, sinus pressure right ear pain for 4 days. She is also had a cough. No vomiting. She has had some diarrhea. She tried a sinus pill yesterday at work which seemed to help some. She denies chest pain or shortness of breath. She did do a home COVID test yesterday which was negative. Review of Systems Constitutional: Negative for fever. HENT: Positive for congestion, ear pain, rhinorrhea, sinus pressure and sore throat. Negative for ear discharge. Respiratory: Positive for cough. Negative for shortness of breath and wheezing. Cardiovascular: Negative. Gastrointestinal: Positive for diarrhea. Negative for abdominal pain, nausea and vomiting. Genitourinary: Negative. Musculoskeletal: Negative. All other systems reviewed and are negative. 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 84 tablet 4 montelukast (SINGULAIR) 10 mg tablet take 1 tablet by mouth everyday at bedtime 90 tablet 2 doxepin capsule 25 mg Take 1 capsule by mouth daily at bedtime. 90 capsule 3 fluticasone (FLONASE) 50 mcg/actuation nasal spray Use 2 Sprays in each nostril once daily. Rinse mouth after use. 1 Each 0 cetirizine (ZYRTEC) 10 mg tablet Take 1 tablet by mouth once daily for 7 days. 7 tablet 0 No current facility-administered medications for this visit. PAST SURGICAL HISTORY Procedure Laterality Date INDUCED HX 2009 LAPAROSCOPY SURG CHOLECYSTECTOMY 2013 Cholecystectomy, lap PAST SURGICAL HISTORY OF 1998 vaginal wart removal VAGINOSCOPY 2017 FAMILY HISTORY Problem Relation Age of Onset other (skin Cancer) Mother on face, melanoma Stroke Maternal Grandmother Cancer Maternal Grandfather throat Hypertension Maternal Grandfather Social History Tobacco Use Smoking status: Former Current packs/day: 0.00 Average packs/day: 0.5 packs/day for 8.0 years (4.0 ttl pk-yrs) Types: Cigarettes Start date: 08/29/2004 Quit date: 08/29/2012 Years since quittin.3 Smokeless tobacco: Never Vaping Use Vaping status: Never Used Substance Use Topics Alcohol use: Yes Comment: rarely Drug use: No Objective BP 119/84 Pulse 86 Temp 36.7 ?C (98.1 ?F) Resp 18 Wt 123 kg (271 lb 2.7 oz) LMP 01/03/2024 (Exact Date) SpO2 98% BMI 43.58 kg/m? Physical Exam Vitals reviewed. Constitutional: Appearance: Normal appearance. HENT: Head: Normocephalic and atraumatic. Right Ear: Ear canal and external ear normal. Left Ear: Tympanic membrane, ear canal and external ear normal. Ears: Comments: Serous appearing right middle ear effusion Nose: Congestion present. Mouth/Throat: Mouth: Mucous membranes are moist. Pharynx: Oropharynx is clear. Cardiovascular: Rate and Rhythm: Normal rate and regular rhythm. Heart sounds: Normal heart sounds. Pulmonary: Effort: Pulmonary effort is normal. Breath sounds: Normal breath sounds. Musculoskeletal: Cervical back: Neck supple. Lymphadenopathy: Cervical: No cervical adenopathy. Skin: General: Skin is warm and dry. Findings: No rash. Neurological: Mental Status: She is alert. Assessment and Plan ASSESSMENT/PLAN: 1. Viral URI - ICD9: 465.9, ICD10: J06.9 (primary diagnosis) - Discussed viral etiology and rationale for treatment. - Symptomatic treatment with prn analgesia - Supportive care with fluids and rest 2. Sinus congestion - ICD9: 478.19, ICD10: R09.81 Flonase and Zyrtec to help with congestion. Follow-up if not improving over the next week. Patient agreeable. SHIN [facility]10-25-2024 History of Present illness Narrative* Merlyn Medel PA-C - 01/14/2024 12:04 PM EDT This note was created using [employer]rafuser[employer]. Subjective Michaelle Mays is a 43 year old female. HPI Patient presents with nasal congestion, headache, sinus pressure right ear pain for 4 days. She is also had a cough. No vomiting. She has had some diarrhea. She tried a sinus pill yesterday at work which seemed to help some. She denies chest pain or shortness of breath. She did do a home COVID testyesterday which was negative. Review of Systems Constitutional: Negative for fever. HENT: Positive for congestion, ear pain, rhinorrhea, sinus pressure and sore throat. Negative for ear discharge. Respiratory: Positive for cough. Negative for shortness of breath and wheezing. Cardiovascular: Negative. Gastrointestinal: Positive for diarrhea. Negative for abdominal pain, nausea and vomiting. Genitourinary: Negative. Musculoskeletal: Negative. All other systems reviewed and are negative. 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 84 tablet 4 montelukast (SINGULAIR) 10 mg tablet take 1 tablet by mouth everyday at bedtime 90 tablet 2 doxepin capsule 25 mg Take 1 capsule by mouth daily at bedtime. 90 capsule 3 fluticasone (FLONASE) 50 mcg/actuation nasal spray Use 2 Sprays in each nostril once daily. Rinse mouth after use. 1 Each 0 cetirizine (ZYRTEC) 10 mg tablet Take 1 tablet by mouth once daily for 7 days. 7 tablet 0 No current facility-administered medications for this visit. PAST SURGICAL HISTORY Procedure Laterality Date INDUCED HX 2009 LAPAROSCOPY SURG CHOLECYSTECTOMY 2013 Cholecystectomy, lap PAST SURGICAL HISTORY OF 1998 vaginal wart removal VAGINOSCOPY 2017 FAMILY HISTORY Problem Relation Age of Onset other (skin Cancer) Mother on face, melanoma Stroke Maternal Grandmother Cancer Maternal Grandfather throat Hypertension Maternal Grandfather Social History Tobacco Use Smoking status: Former Current packs/day: 0.00 Average packs/day: 0.5 packs/day for 8.0 years (4.0 ttl pk-yrs) Types: Cigarettes Start date: 08/29/2004 Quit date: 08/29/2012 Years since quittin.3 Smokeless tobacco: Never Vaping Use Vaping status: Never Used Substance Use Topics Alcohol use: Yes Comment: rarely Drug use: No Objective BP 119/84 Pulse 86 Temp 36.7 C (98.1 F) Resp 18 Wt 123 kg (271 lb 2.7 oz) LMP 01/03/2024 (Exact Date) SpO2 98% BMI 43.58 kg/m Physical Exam Vitals reviewed. Constitutional: Appearance: Normal appearance. HENT: Head: Normocephalic and atraumatic. Right Ear: Ear canal and external ear normal. Left Ear: Tympanic membrane, ear canal and external ear normal. Ears: Comments: Serous appearing right middle ear effusion Nose: Congestion present. Mouth/Throat: Mouth: Mucous membranes are moist. Pharynx: Oropharynx is clear. Cardiovascular: Rate and Rhythm: Normal rate and regular rhythm. Heart sounds: Normal heart sounds. Pulmonary: Effort: Pulmonary effort is normal. Breath sounds: Normal breath sounds. Musculoskeletal: Cervical back: Neck supple. Lymphadenopathy: Cervical: No cervical adenopathy. Skin: General: Skin is warm and dry. Findings: No rash. Neurological: Mental Status: She is alert. Assessment and Plan ASSESSMENT/PLAN: 1. Viral URI - ICD9: 465.9, ICD10: J06.9 (primary diagnosis) - Discussed viral etiology and rationale for treatment. - Symptomatic treatment with prn analgesia - Supportive care with fluids and rest 2. Sinus congestion - ICD9: 478.19, ICD10: R09.81 Flonase and Zyrtec to help with congestion. Follow-up if not improving over the next week. Patient agreeable. Merlyn Medel PA-C\ [facility] in this encounterK[facility]24 NoteHNO ID: [id number] Author: ESTELITA RIVERA PA Service: ? Author Type: Physician Help Desk Team Leader Type: Progress Notes Filed: 12/30/2023 11:29 Note Text: This note was created using NoteWriter. Subjective Michaelle Mays is a 43 year old female. HPI 43-year-old female presents for neck pain starting this morning. Patient states she got up this morning was having posterior neck pain and it felt tight. She states she may have slept wrong because her cat sleeps on her pillow as well. She denies any fevers, sore throat. She denies any numbness or tingling the arms. No loss of bowel or bladder function. No fall or injury. She has not taken anything for the pain. No other complaint. 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 montelukast (SINGULAIR) 10 mg tablet take 1 tablet by mouth everyday at bedtime doxepin capsule 25 mg Take 1 capsule by mouth daily at bedtime. methocarbamol (ROBAXIN) 500 mg tablet Take 1 tablet by mouth every 6 hours as needed (Pain) for up to 3 days. FAMILY HISTORY Problem Relation Age of Onset other (skin Cancer) Mother on face, melanoma Stroke Maternal Grandmother Cancer Maternal Grandfather throat Hypertension Maternal Grandfather Social History Tobacco Use Smoking status: Former Current packs/day: 0.00 Average packs/day: 0.5 packs/day for 8.0 years (4.0 ttl pk-yrs) Types: Cigarettes Start date: 08/29/2004 Quit date: 08/29/2012 Years since quittin.3 Smokeless tobacco: Never Vaping Use Vaping status: Never Used Substance Use Topics Alcohol use: Yes Comment: rarely Drug use: No Review of Systems Constitutional: Negative for chills and fever. HENT: Negative for congestion, ear pain and sore throat. Respiratory: Negative for cough and shortness of breath. Cardiovascular: Negative for chest pain. Gastrointestinal: Negative for diarrhea and vomiting. Musculoskeletal: Positive for neck pain. Objective BP 147/85 Pulse 79 Temp 36.6 ?C (97.8 ?F) Resp 18 Wt 123.1 kg (271 lb 6.2 oz) LMP 06/20/2023 SpO2 98% BMI 43.62 kg/m? Physical Exam Vitals and nursing note reviewed. Constitutional: General: She is not in acute distress. Appearance: Normal appearance. She is not toxic-appearing. HENT: Mouth/Throat: Mouth: Mucous membranes are moist. Pharynx: Oropharynx is clear. Neck: Comments: Patient has normal ROM cervical spine. Normal chin to chest. She does have bilateral paraspinal muscle tenderness. No midline tenderness. Neck is supple. No lymphadenopathy. Normal sensation and strength upper extremities. Cardiovascular: Rate and Rhythm: Normal rate and regular rhythm. Pulmonary: Effort: Pulmonary effort is normal. Breath sounds: Normal breath sounds. Musculoskeletal: Cervical back: Normal range of motion and neck supple. No rigidity. Pain with movement and muscular tenderness present. No spinous process tenderness. Normal range of motion. Lymphadenopathy: Cervical: No cervical adenopathy. Skin: General: Skin is warm and dry. Neurological: Mental Status: She is alert. Assessment and Plan ASSESSMENT/PLAN: 1. Strain of neck muscle, initial encounter - ICD9: 847.0, ICD10: S16.1XXA -Suspect muscular strain. -Recommend rest, ice/heat, Tylenol/Motrin -Rx for Robaxin. Advised not to drive while taking this medication as it may cause drowsiness. -Follow-up if no improvement. -Red flag symptoms discussed Diagnosis and treatment plan were discussed and questions were answered to the patient's satisfaction. Pt acknowledged understanding of concepts and follow up plan. Specific signs and symptoms that would indicate the need for higher level of care were discussed in detail warranting prompt ER evaluation. Estelita Rivera [facility]10-10-2024 History of Present illness Narrative* Estelita Rivera PA - 12/30/2023 11:24 AM EDT This note was created using [employer]rafuser[employer]. Subjective Michaelle Mays is a 43 year old female. HPI 43-year-old female presents for neck pain starting this morning. Patient states she got up thismorning was having posterior neck pain and it felt tight. She states she may have slept wrong because her cat sleeps on her pillow as well. She denies any fevers, sore throat. She denies any numbnessor tingling the arms. No loss of bowel or bladder function. No fall or injury. She has not taken anything for the pain. No other complaint. 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 montelukast (SINGULAIR) 10 mg tablet take 1 tablet by mouth everyday at bedtime doxepin capsule 25 mg Take 1 capsule by mouth daily at bedtime. methocarbamol (ROBAXIN) 500 mg tablet Take 1 tablet by mouth every 6 hours as needed (Pain) for up to 3 days. FAMILY HISTORY Problem Relation Age of Onset other (skin Cancer) Mother on face, melanoma Stroke Maternal Grandmother Cancer Maternal Grandfather throat Hypertension Maternal Grandfather Social History Tobacco Use Smoking status: Former Current packs/day: 0.00 Average packs/day: 0.5 packs/day for 8.0 years (4.0 ttl pk-yrs) Types: Cigarettes Start date: 08/29/2004 Quit date: 08/29/2012 Years since quittin.3 Smokeless tobacco: Never Vaping Use Vaping status: Never Used Substance Use Topics Alcohol use: Yes Comment: rarely Drug use: No Review of Systems Constitutional: Negative for chills and fever. HENT: Negative for congestion, ear pain and sore throat. Respiratory: Negative for cough and shortness of breath. Cardiovascular: Negative for chest pain. Gastrointestinal: Negative for diarrhea and vomiting. Musculoskeletal: Positive for neck pain. Objective BP 147/85 Pulse 79 Temp 36.6 C (97.8 F) Resp 18 Wt 123.1 kg (271 lb 6.2 oz) LMP 06/20/2023 SpO2 98% BMI 43.62 kg/m Physical Exam Vitals and nursing note reviewed. Constitutional: General: She is not in acute distress. Appearance: Normal appearance. She is not toxic-appearing. HENT: Mouth/Throat: Mouth: Mucous membranes are moist. Pharynx: Oropharynx is clear. Neck: Comments: Patient has normal ROM cervical spine. Normal chin to chest. She does have bilateral paraspinal muscle tenderness. No midline tenderness. Neck is supple. No lymphadenopathy. Normal sensation and strength upper extremities. Cardiovascular: Rate and Rhythm: Normal rate and regular rhythm. Pulmonary: Effort: Pulmonary effort is normal. Breath sounds: Normal breath sounds. Musculoskeletal: Cervical back: Normal range of motion and neck supple. No rigidity. Pain with movement and musculartenderness present. No spinous process tenderness. Normal range of motion. Lymphadenopathy: Cervical: No cervical adenopathy. Skin: General: Skin is warm and dry. Neurological: Mental Status: She is alert. Assessment and Plan ASSESSMENT/PLAN: 1. Strain of neck muscle, initial encounter - ICD9: 847.0, ICD10: S16.1XXA -Suspect muscular strain. -Recommend rest, ice/heat, Tylenol/Motrin -Rx for Robaxin. Advised not to drive while taking this medication as it may cause drowsiness. -Follow-up if no improvement. -Red flag symptoms discussed Diagnosis and treatment plan were discussed and questions were answered to the patient's satisfaction. Pt acknowledged understanding of concepts and follow up plan. Specific signs and symptoms that would indicate the need for higher level of care were discussed in detail warranting prompt ER evaluation. SHIN George [facility] Telephone encounter Note * Telephone Encounter - Selam Ordonez LPN - 12/14/2023 10:27 AM EDT Patient following up with allergy regarding. Closing encounter. Selam Ordonez LPN [facility]09-24-2024 Miscellaneous Notes* Telephone Encounter - Selam Ordonez LPN - 12/14/2023 10:27 AM EDT Patient following up with allergy regarding. Closing encounter. Selam Ordonez LPN * Telephone Encounter - Selam Ordonez LPN - 12/06/2023 4:12 PM EDT Patient seen in ED 12/02 for allergic reaction, Dr. Mcdaniel recommends 1 week ER follow up. Patient telephoned, message left to call back to schedule appointment. Selam Ordonez LPN documented in this encounterK[facility]-2024 Telephone encounter Note * Telephone Encounter - Selam Ordonez LPN - 12/06/2023 4:12 PM EDT Patient seen in ED 12/02 for allergic reaction, Dr. Mcdaniel recommends 1 week ER follow up. Patient telephoned, message left to call back to schedule appointment. eSlam Ordonez LPN [facility]07-16-2024 Note* Letter - Coordinator, Mammography - 10/05/2023 8:56 AM EDT October 05, 2023 PID: [id number] Michaelle Mays [address] [place] [id number] Dear Ms. Mays, We are pleased to inform you that the results of your recent breast imaging exam on 10/04/2023 are normal. Breast tissue can be either dense or not dense. Dense tissue makes it harder to find breast cancer on a mammogram and also raises the risk of developing breast cancer. Your breast tissue is not dense. Talk to your healthcare provider about breast density, risks for breast cancer, and your individual situation. Early detection of cancer is very important. We also understand recommendations regarding breast cancer screening are controversial. Please discuss with your primary care provider which strategy is best for you and whether a mammogram is right for you. Your imaging studies and report will be kept on file at [facility] as part of your permanent medical record and are available for your continuing care. Thank you for allowing us to help in meeting your health care needs. Sincerely, Dr. Zaragoza Interpreting Radiologist [facility] (Normal over 40) [facility]07-16-2024 Miscellaneous Notes* Letter - Coordinator, Mammography - 10/05/2023 8:56 AM EDT October 05, 2023 PID: [id number] Michaelle Mays [address] [place] [address] Dear Ms. Mays, We are pleased to inform you that the results of your recent breast imaging exam on 10/04/2023 are normal. Breast tissue can be either dense or not dense. Dense tissue makes it harder to find breast cancer on a mammogram and also raises the risk of developing breast cancer. Your breast tissue is not dense. Talk to your healthcare provider about breast density, risks for breast cancer, and your individual situation. Early detection of cancer is very important. We also understand recommendations regarding breast cancer screening are controversial. Please discuss with your primary care provider which strategy is best for you and whether a mammogram is right for you. Your imaging studies and report will be kept on file at [facility] as part of your permanent medical record and are available for your continuing care. Thank you for allowing us to help in meeting your health care needs. Sincerely, Dr. Zaragoza Interpreting Radiologist [facility] (Normal over 40) documented in this encounterK[facility] History of Present illness Narrative* Emilia Hayden Mammo Tech - 10/04/2023 2:50 PM EDT Radiology Service Progress Note PATIENT NAME: Michaelle Mays DATE OF SERVICE: October 04, 2023 TIME: 2:31 PM PATIENT IDENTITY VERIFICATION COMPLETED USING TWO (2) IDENTIFIERS: Name and Date of confirmedby patient verbally. FALL SCREENING: Has the patient had 2 falls in the last year or 1 fall with injury or currently using an Ambulatory Assistive Device (Walker, Cane, Wheelchair, Crutches, etc.)? No PATIENT GENDER DATA: Female. status: : No status: NO. PATIENT RELEVANT IMPLANT DATA REVIEWED: Not Applicable PATIENT PRESENTS WITH AN IMPLANTABLE OR ATTACHED SCOUT EXECUTIVE: No RADIOLOGY DEPARTMENT: Mammography PERIPHERAL IV DATA: Not applicable SIGNED BY: Ruben Toribio October 04, 2023 2:31 PM documented in this encounterKettering [facility]07-15-2024 NoteHNO ID: [id number] Author: EMILIA HAYDEN Edifilm Kiko Service: ? Author Type: Chairman President And Chief Executive Officer Type: Progress Notes Filed: 10/04/2023 14:49 Note Text: Radiology Service Progress Note PATIENT NAME: Michaelle Mays DATE OF SERVICE: October 04, 2023 TIME: 2:31 PM PATIENT IDENTITY VERIFICATION COMPLETED USING TWO (2) IDENTIFIERS: Name and Date of confirmed by patient verbally. FALL SCREENING: Has the patient had 2 falls in the last year or 1 fall with injury or currently using an Ambulatory Assistive Device (Walker, Cane, Wheelchair, Crutches, etc.)? No PATIENT GENDER DATA: Female. status: : No status: NO. PATIENT RELEVANT IMPLANT DATA REVIEWED: Not Applicable PATIENT PRESENTS WITH AN IMPLANTABLE OR ATTACHED SCOUT EXECUTIVE: No RADIOLOGY DEPARTMENT: Mammography PERIPHERAL IV DATA: Not applicable SIGNED BY: Emilia Hayden Edifilm Kiko October 04, 2023 2:31 [facility]07-01-2024 NoteHNO ID: [id number] Author: ESTELITA RIVERA PA Service: ? Author Type: Physician Help Desk Team Leader Type: Progress Notes Filed: 09/20/2023 12:53 Note Text: This note was created using Centrafuseriter. Subjective Michaelle Mays is a 43 year old female. HPI 43-year-old female presents for fatigue and not feeling well x 1 day. Patient states yesterday she started not feeling well and feeling tired. Today she states that she still felt tired, so did not going to work. She needs a work note. She denies any cough congestion sore throat or other URI symptoms. No fevers or chills. No abdominal pain, vomiting, diarrhea. No urinary symptoms. She states her was recently sick with food poisoning, but she has not had any of those symptoms. Otherwise, no sick contacts. She denies any recent rashes, tick bites. No blood in the stool. No abnormal vaginal bleeding. No other complaint. Review of Systems Constitutional: Positive for fatigue. Negative for chills and fever. HENT: Negative for congestion, ear pain and sore throat. Respiratory: Negative for cough and shortness of breath. Cardiovascular: Negative for chest pain. Gastrointestinal: Negative for diarrhea and vomiting. Objective BP 100/66 Pulse 95 Temp 36.8 ?C (98.2 ?F) Resp 21 Wt 119.5 kg (263 lb 7.2 oz) LMP 06/20/2023 SpO2 99% BMI 42.34 kg/m? Physical Exam Vitals and nursing note reviewed. Constitutional: General: She is not in acute distress. Appearance: Normal appearance. She is not toxic-appearing. HENT: Right Ear: Tympanic membrane and ear canal normal. Left Ear: Tympanic membrane and ear canal normal. Nose: Nose normal. Mouth/Throat: Mouth: Mucous membranes are moist. Pharynx: No oropharyngeal exudate or posterior oropharyngeal erythema. Eyes: Conjunctiva/sclera: Conjunctivae normal. Cardiovascular: Rate and Rhythm: Normal rate and regular rhythm. Pulmonary: Effort: Pulmonary effort is normal. Breath sounds: Normal breath sounds. Abdominal: General: Abdomen is flat. Palpations: Abdomen is soft. Tenderness: There is no abdominal tenderness. Neurological: Mental Status: She is alert. Assessment and Plan ASSESSMENT/PLAN: 1. Fatigue, unspecified type - ICD9: 780.79, ICD10: R53.83 -Fatigue for 1 day. Unsure of cause. No other symptoms. -Possible viral illness. -Offered COVID/flu swab, but patient declines. -Patient requesting work note, given note for today. -Follow-up with PCP if symptoms persist. Diagnosis and treatment plan were discussed and questions were answered to the patient's satisfaction. Pt acknowledged understanding of concepts and follow up plan. Specific signs and symptoms that would indicate the need for higher level of care were discussed in detail warranting prompt ER evaluation. Esteltia Rivera [facility]07-01-2024 History of Present illness Narrative* Estelita Rivera PA - 09/20/2023 12:50 PM EDT This note was created using NoteWriter. Subjective Michaelle Mays is a 43 year old female. HPI 43-year-old female presents for fatigue and not feeling well x 1 day. Patient states yesterday she started not feeling well and feeling tired. Today she states that she still felt tired, so did not going to work. She needs a work note. She denies any cough congestion sore throat or other URI symptoms. No fevers or chills. No abdominal pain, vomiting, diarrhea. No urinary symptoms. She states her was recently sick with food poisoning, but she has not had any of those symptoms. Otherwise, no sick contacts. She denies any recent rashes, tick bites. No blood in the stool. No abnormal vaginal bleeding. No other complaint. Review of Systems Constitutional: Positive for fatigue. Negative for chills and fever. HENT: Negative for congestion, ear pain and sore throat. Respiratory: Negative for cough and shortness of breath. Cardiovascular: Negative for chest pain. Gastrointestinal: Negative for diarrhea and vomiting. Objective BP 100/66 Pulse 95 Temp 36.8 C (98.2 F) Resp 21 Wt 119.5 kg (263 lb 7.2 oz) LMP 06/20/2023 SpO2 99% BMI 42.34 kg/m Physical Exam Vitals and nursing note reviewed. Constitutional: General: She is not in acute distress. Appearance: Normal appearance. She is not toxic-appearing. HENT: Right Ear: Tympanic membrane and ear canal normal. Left Ear: Tympanic membrane and ear canal normal. Nose: Nose normal. Mouth/Throat: Mouth: Mucous membranes are moist. Pharynx: No oropharyngeal exudate or posterior oropharyngeal erythema. Eyes: Conjunctiva/sclera: Conjunctivae normal. Cardiovascular: Rate and Rhythm: Normal rate and regular rhythm. Pulmonary: Effort: Pulmonary effort is normal. Breath sounds: Normal breath sounds. Abdominal: General: Abdomen is flat. Palpations: Abdomen is soft. Tenderness: There is no abdominal tenderness. Neurological: Mental Status: She is alert. Assessment and Plan ASSESSMENT/PLAN: 1. Fatigue, unspecified type - ICD9: 780.79, ICD10: R53.83 -Fatigue for 1 day. Unsure of cause. No other symptoms. -Possible viral illness. -Offered COVID/flu swab, but patient declines. -Patient requesting work note, given note for today. -Follow-up with PCP if symptoms persist. Diagnosis and treatment plan were discussed and questions were answered to the patient's satisfaction. Pt acknowledged understanding of concepts and follow up plan. Specific signs and symptoms that would indicate the need for higher level of care were discussed in detail warranting prompt ER evaluation. SHIN George documented in this encounterK[facility]06-04-[facility]24 Telephone encounter Note * Telephone Encounter - Annemarie Dick PA-C - 08/24/2023 9:09 AM EDT Patient has not been seen in our office in over a year, with her last refill request I informed herthat she really may need to make a follow-up with orthopedics or obtain additional refills from herPCP, see Epic. [facility] Miscellaneous Notes* Telephone Encounter - Annemarie Dick PA-C - 08/24/2023 9:09 AM EDT Patient has not been seen in our office in over a year, with her last refill request I informed herthat she really may need to make a follow-up with orthopedics or obtain additional refills from herPCP, see Epic. documented in this encounterKettering [facility]05-29-2024 NoteHNO ID: [id number] Author: AJZZ WRIGHT APRN.PITCHING COACH Service: ? Author Type: Nurse Practitioner Type: Progress Notes Filed: 08/18/2023 14:37 Note Text: 08/18/2023 Patient presents with: Pain: Right arm and shoulder pain from fall in June SUBJECTIVE: This is a 43 year old that is here today for Above Complaints.. In June while carrying laundry stepped into husbands guitar case and fell face forward. Reports right arm landed outstretched onto some boxes. Seen in [facility] on 08/04/2023 and had xray completed. (see below). Given prescription for prednisone which she completed. Reports she had some relief with it. Pain located shoulder to bicep. Described as aching. Aggravated if she over extends it. Reports she has an appointment with ortho in October. Had to take work off today because she woke up with some pain- she thinks she slept on it wrong. Requesting a work excuse. 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 Denies past injury/surgery, redness, excessive warmth, swelling, extremity numbness, tingling or weakness IMPRESSION: No radiographic evidence of acute osseous injury. Leak Hunter: NICOLA Transcribe Date/Time: Aug 04 2023 9:44A Dictated by : CODIE ESTES MD This examination was interpreted and the report reviewed and electronically signed by: CODIE ESTES MD on Aug 04 2023 9:47AM EST Results-Findings * * *Final Report* * * DATE OF EXAM: Aug 04 2023 9:38AM WOX [id number] - XR SHLDR >/=3V AP/VERÓNICA AP/OTHR RT / PROCEDURE REASON: Acute pain of right shoulder * * * * Physician Interpretation * * * * TITLE: XR SHLDR >/=3V AP/VERÓNICA AP/OTHR RT CLINICAL INDICATION: Shoulder pain TECHNIQUE: 4 view radiographic study of the right shoulder COMPARISON: None FINDINGS: No acute fracture or dislocation identified. Acromioclavicular joint intact. 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 (Patient not taking: Reported on 08/04/2023) diclofenac XR (VOLTAREN-XR) 100 mg Tb24 Take 1 tablet by mouth once daily. levonorgestrel-ethinyl estradiol (ALTAVERA, 28,) 0.15-0.03 mg per tab Take 1 tablet by mouth once daily. montelukast (SINGULAIR) 10 mg tablet take 1 tablet by mouth everyday at bedtime doxepin capsule 25 mg Take 1 capsule by mouth daily at bedtime. No current facility-administered medications for this visit. Medications and allergies reviewed by this provider. SOCIAL HISTORY Social History Tobacco Use Smoking status: Former Packs/day: 0.50 Years: 8.00 Additional pack years: 0.00 Total pack years: 4.00 Types: Cigarettes Quit date: 08/29/2012 Years since quittin.9 Smokeless tobacco: Never Vaping Use Vaping Use: Never used Substance Use Topics Alcohol use: Yes Comment: rarely Drug use: No REVIEW OF SYSTEMS All other reviewed and negative other than HPI. OBJECTIVE: BP 118/70 Pulse 81 Resp 18 Wt 120.8 kg (266 lb 6.4 oz) LMP 06/20/2023 SpO2 96% BMI 42.81 kg/m? . Vital signs reviewed by this provider. APPEARANCE Well appearing, alert, in no acute distress, well-hydrated, well nourished. RIGHT SHOULDER: No obvious deformity, erythema, swelling or excessive warmth. Mild TTP bicep. FROM without difficulty. + NEER, Negative Soliz. 2+ radial pulse Covid-19 Vaccine( - 2022- season) due on 11/20/2022 DTaP,Tdap,Td Vaccine(2 - Td or Tdap) due on 12/06/2022 Behavioral Health Screening Never done Pap Testing due on 04/29/2023 Colorectal Cancer Screening Never done Mammogram Screening due on 10/03/2023 Influenza Vaccine(Season Ended) due on 11/21/2023 HPV Testing due on 04/26/2024 Lipid Screening due on 09/26/2025 Diabetes Screening due on 02/08/2026 Hepatitis C Screening Completed HIV Screening Completed HPV Vaccine Aged Out ASSESSMENT/PLAN: 1. Acute pain of right shoulder - ICD9: 719.41, ICD10: M25.511 - no red flag symptoms or exam findings - red flag symptoms discussed, verbalizes understanding - may use OTC oral and topical pain relievers as directed on packaging. Recommend ice to area for 15 minutes at a time - note for work provided - follow-up with ortho as scheduled, to ER with red flag symptoms Jazz Wright APRN.PITCHING COACH Prescription instructions reviewed with patient as applicable. Patient advised if symptoms do not improve or if symptoms worsen sooner, to contact their primary care physician. Potential red flag symptoms discussed with the patient. Reviewed appropriate action plan to take if red flag symptoms occur. Patien (more content not included)...[facility]05-29-2024 History of Present illness Narrative* Jazz Wright APRN.CNP - 08/18/2023 1:29 PM EDT 08/18/2023 Patient presents with: Pain: Right arm and shoulder pain from fall in June SUBJECTIVE: This is a 43 year old that is here today for Above Complaints.. In June while carrying laundry stepped into husbands keyon yanez and fell face forward. Reports right arm landed outstretched onto some boxes. Seen in [facility] on 08/04/2023 and had xray completed. (see below). Given prescription for prednisone which she completed. Reports she had some relief with it. Pain located shoulder to bicep. Described as aching. Aggravated if she over extends it. Reports she has an appointment with ortho in October. Had to take work off today because she woke up with some pain- she thinks she slept on it wrong. Requesting a work excuse. 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 Denies past injury/surgery, redness, excessive warmth, swelling, extremity numbness, tingling or weakness IMPRESSION: No radiographic evidence of acute osseous injury. Leak Hunter: NICOLA Transcribe Date/Time: Aug 04 2023 9:44A Dictated by : CODIE ESTES MD This examination was interpreted and the report reviewed and electronically signed by: CODIE ESTES MD on Aug 04 2023 9:47AM EST Results-Findings * * *Final Report* * * DATE OF EXAM: Aug 04 2023 9:38AM WOX 5253 - XR SHLDR >/=3V AP/VERÓNICA AP/OTHR RT / PROCEDURE REASON: Acute pain of right shoulder * * * * Physician Interpretation * * * * TITLE: XR SHLDR >/=3V AP/VERÓNICA AP/OTHR RT CLINICAL INDICATION: Shoulder pain TECHNIQUE: 4 view radiographic study of the right shoulder COMPARISON: None FINDINGS: No acute fracture or dislocation identified. Acromioclavicular joint intact. 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 (Patient not taking: Reported on 08/04/2023) diclofenac XR (VOLTAREN-XR) 100 mg Tb24 Take 1 tablet by mouth once daily. levonorgestrel-ethinyl estradiol (ALTAVERA, 28,) 0.15-0.03 mg per tab Take 1 tablet by mouth once daily. montelukast (SINGULAIR) 10 mg tablet take 1 tablet by mouth everyday at bedtime doxepin capsule 25 mg Take 1 capsule by mouth daily at bedtime. No current facility-administered medications for this visit. Medications and allergies reviewed by this provider. SOCIAL HISTORY Social History Tobacco Use Smoking status: Former Packs/day: 0.50 Years: 8.00 Additional pack years: 0.00 Total pack years: 4.00 Types: Cigarettes Quit date: 08/29/2012 Years since quittin.9 Smokeless tobacco: Never Vaping Use Vaping Use: Never used Substance Use Topics Alcohol use: Yes Comment: rarely Drug use: No REVIEW OF SYSTEMS All other reviewed and negative other than HPI. OBJECTIVE: BP 118/70 Pulse 81 Resp 18 Wt 120.8 kg (266 lb 6.4 oz) LMP 06/20/2023 SpO2 96% BMI 42.81 kg/m . Vital signs reviewed by this provider. APPEARANCE Well appearing, alert, in no acute distress, well-hydrated, well nourished. RIGHT SHOULDER: No obvious deformity, erythema, swelling or excessive warmth. Mild TTP bicep. FROM without difficulty. + NEER, Negative Soliz. 2+ radial pulse Covid-19 Vaccine(2022- season) due on 11/20/2022 DTaP,Tdap,Td Vaccine(2 - Td or Tdap) due on 12/06/2022 Behavioral Health Screening Never done Pap Testing due on 04/29/2023 Colorectal Cancer Screening Never done Mammogram Screening due on 10/03/2023 Influenza Vaccine(Season Ended) due on 11/21/2023 HPV Testing due on 04/26/2024 Lipid Screening due on 09/26/2025 Diabetes Screening due on 02/08/2026 Hepatitis C Screening Completed HIV Screening Completed HPV Vaccine Aged Out ASSESSMENT/PLAN: 1. Acute pain of right shoulder - ICD9: 719.41, ICD10: M25.511 - no red flag symptoms or exam findings - red flag symptoms discussed, verbalizes understanding - may use OTC oral and topical pain relievers as directed on packaging. Recommend ice to area for 15 minutes at a time - note for work provided - follow-up with ortho as scheduled, to ER with red flag symptoms Jazz Wright APRN.PITCHING COACH Prescription instructions reviewed with patient as applicable. Patient advised if symptoms do not improve or if symptoms worsen sooner, to contact their primary care physician. Potential red flag symptoms discussed with the patient. Reviewed appropriate action plan to take if red flag symptoms occur. Patient agreeable to treatment plan. Medical Decision Making: Problems: Low: Acute, uncomplicated illness or injury Risk: Low: Low risk from testing/treatment Medical Decision Making Level: 3 - Low documented in this encounterK[facility]05-20-2024 Telephone encounter Note * Telephone Encounter - Essence Chaves - 08/09/2023 9:21 AM EDT GALLO read. Closing encounter [facility] Miscellaneous Notes* Telephone Encounter - Essence Chaves - 08/09/2023 9:21 AM EDT GALLO read. Closing encounter * Telephone Encounter - Shaan Fernandez - 08/04/2023 10:22 AM EDT Appointment 08/26/23 needs rescheduled - Contact Made: sent MyChart letter 1st Attempt Michaelle Mays needs to reschedule this appointment with JENNIFER because of unavailability. She shouldbe rescheduled for first available. Please assist her with appointment rescheduling. If unable to do so, please verify best method of contact, and send staff message to the pool so the department mayassist her. documented in this encounterK[facility]05-15-2024 Telephone encounter Note * Telephone Encounter - Shaan Fernandez - 08/04/2023 10:22 AM EDT Appointment 08/26/23 needs rescheduled - Contact Made: sent MyChart letter 1st Attempt Michaelle Mays needs to reschedule this appointment with JENNIFER because of unavailability. She shouldbe rescheduled for first available. Please assist her with appointment rescheduling. If unable to do so, please verify best method of contact, and send staff message to the pool so the department mayassist her. [facility] History of Present illness Narrative* Jerzy Clay RT(R) - 08/04/2023 9:20 AM EDT Radiology Service Progress Note PATIENT NAME: Michaelle Mays DATE OF SERVICE: August 04, 2023 TIME: 9:29 AM PATIENT IDENTITY VERIFICATION COMPLETED USING TWO (2) IDENTIFIERS: Name and Date of confirmedby patient verbally. FALL SCREENING: Has the patient had 2 falls in the last year or 1 fall with injury or currently using an Ambulatory Assistive Device (Walker, Cane, Wheelchair, Crutches, etc.)? No PATIENT GENDER DATA: Female. status: : No status: NO. PATIENT RELEVANT IMPLANT DATA REVIEWED: Yes PATIENT PRESENTS WITH AN IMPLANTABLE OR ATTACHED SCOUT EXECUTIVE: No RADIOLOGY DEPARTMENT: General X-ray: Exam(s) Completed: Upper Extremity X- Ray(s): Shoulder, AP / TRUE AP / AXILLARY right PERIPHERAL IV DATA: Not applicable SIGNED BY: ROBEL Neal) August 04, 2023 9:29 AM documented in this encounterKettering Health [facility]05-15-2024 NoteHNO ID: [id number] Author: JERZY CLAY RT(R) Service: Radiology Author Type: Technologist Type: Progress Notes Filed: 08/04/2023 09:39 Note Text: Radiology Service Progress Note PATIENT NAME: Michaelle Mays DATE OF SERVICE: August 04, 2023 TIME: 9:29 AM PATIENT IDENTITY VERIFICATION COMPLETED USING TWO (2) IDENTIFIERS: Name and Date of confirmed by patient verbally. FALL SCREENING: Has the patient had 2 falls in the last year or 1 fall with injury or currently using an Ambulatory Assistive Device (Walker, Cane, Wheelchair, Crutches, etc.)? No PATIENT GENDER DATA: Female. status: : No status: NO. PATIENT RELEVANT IMPLANT DATA REVIEWED: Yes PATIENT PRESENTS WITH AN IMPLANTABLE OR ATTACHED SCOUT EXECUTIVE: No RADIOLOGY DEPARTMENT: General X-ray: Exam(s) Completed: Upper Extremity X-Ray(s): Shoulder, AP / TRUE AP / AXILLARY right PERIPHERAL IV DATA: Not applicable SIGNED BY: RT Val(R) August 04, 2023 9:[address] [facility]05-15-2024 NoteHNO ID: [id number] Author: ESTELITA RIVERA PA Service: ? Author Type: Physician Help Desk Team Leader Type: Progress Notes Filed: 08/04/2023 09:53 Note Text: This note was created using Centrafuseriter. Subjective Michaelle Mays is a 43 year old female. HPI 43-year-old female presents for right shoulder pain. Patient has been having right shoulder pain for the past month after she fell at her home. She states that she was carrying a laundry basket and tripped over her 's guitar case and fell down. She states her arm went forward and landed on some totes. She is having right shoulder pain since then. She states the pain comes and goes, some days it is worse than others. She has been taking Tylenol daily which helps somewhat with the pain. She states today she was at work and the pain seemed to be worse, so she left and came here for evaluation. She denies any numbness. She states that today she had a little bit of tingling in her thumb. This is now resolved. No other complaint. 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 levonorgestrel-ethinyl estradiol (ALTAVERA, 28,) 0.15-0.03 mg per tab Take 1 tablet by mouth once daily. montelukast (SINGULAIR) 10 mg tablet take 1 tablet by mouth everyday at bedtime doxepin capsule 25 mg Take 1 capsule by mouth daily at bedtime. famotidine (PEPCID) 20 mg tablet Take 1 tablet by mouth at bedtime as needed. (Patient not taking: Reported on 08/04/2023) FAMILY HISTORY Problem Relation Age of Onset other (skin Cancer) Mother on face, melanoma Stroke Maternal Grandmother Cancer Maternal Grandfather throat Hypertension Maternal Grandfather Social History Tobacco Use Smoking status: Former Packs/day: 0.50 Years: 8.00 Additional pack years: 0.00 Total pack years: 4.00 Types: Cigarettes Quit date: 08/29/2012 Years since quittin.9 Smokeless tobacco: Never Vaping Use Vaping Use: Never used Substance Use Topics Alcohol use: Yes Comment: rarely Drug use: No Review of Systems Constitutional: Negative for chills and fever. HENT: Negative for congestion, ear pain and sore throat. Respiratory: Negative for cough and shortness of breath. Cardiovascular: Negative for chest pain. Gastrointestinal: Negative for diarrhea and vomiting. Musculoskeletal: Positive for arthralgias (Right shoulder pain). Objective BP 126/78 Pulse 78 Temp 36.5 ?C (97.7 ?F) Resp 16 Wt 121 kg (266 lb 12.1 oz) LMP 06/20/2023 SpO2 97% BMI 42.87 kg/m? Physical Exam Vitals and nursing note reviewed. Constitutional: General: She is not in acute distress. Appearance: Normal appearance. She is not toxic-appearing. Musculoskeletal: Right shoulder: Tenderness and bony tenderness present. Decreased range of motion. Arms: Comments: Tenderness over right anterior shoulder as noted in photo above near the biceps tendon insertion. Patient able to forward flex to 100 degrees and abduction to 100 degrees with pain. She has normal strength of the shoulder. Normal ROM elbow and wrist. Normal doctor of audiology strength. Normal sensation right upper extremity. Pulses 2+. No obvious deformity. Skin: General: Skin is warm and dry. Neurological: Mental Status: She is alert. Assessment and Plan ASSESSMENT/PLAN: 1. Acute pain of right shoulder - ICD9: 719.41, ICD10: M25.511 - XR SHOULDER GENERAL 3V OR MORE AP/TRUE AP/OTHER RIGHT-no acute abnormality. -Advised patient we cannot rule out ligamentous injury or rotator cuff injury. Did recommend if symptoms persist follow-up with orthopedics. She is tender over the biceps tendon. Possible biceps tendinitis. -Recommend rest, ice. -Rx for Medrol Dosepak. No NSAIDs while taking this medication. - CONSULT TO ORTHOPAEDICS Diagnosis and treatment plan were discussed and questions were answered to the patient's satisfaction. Pt acknowledged understanding of concepts and follow up plan. Specific signs and symptoms that would indicate the need for higher level of care were discussed in detail warranting prompt ER evaluation. Estelita Rivera [facility]05-15-2024 History of Present illness Narrative* Estelita Rivera PA - 08/04/2023 9:15 AM EDT This note was created using [employer]rafuser[employer]. Subjective Michaelle Mays is a 43 year old female. HPI 43-year-old female presents for right shoulder pain. Patient has been having right shoulder pain for the past month after she fell at her home. She states that she was carrying a laundry basket and tripped over her 's guitar case and fell down. She states her arm went forward and landed on some totes. She is having right shoulder pain since then. She states the pain comes and goes, some days it is worse than others. She has been taking Tylenol daily which helps somewhat with the pain. She states today she was at work and the pain seemed to be worse, so she left and came here for evaluation. She denies any numbness. She states that today she had a little bit of tingling in her thumb. This is now resolved. No other complaint. 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 levonorgestrel-ethinyl estradiol (ALTAVERA, 28,) 0.15-0.03 mg per tab Take 1 tablet by mouth once daily. montelukast (SINGULAIR) 10 mg tablet take 1 tablet by mouth everyday at bedtime doxepin capsule 25 mg Take 1 capsule by mouth daily at bedtime. famotidine (PEPCID) 20 mg tablet Take 1 tablet by mouth at bedtime as needed. (Patient not taking: Reported on 08/04/2023) FAMILY HISTORY Problem Relation Age of Onset other (skin Cancer) Mother on face, melanoma Stroke Maternal Grandmother Cancer Maternal Grandfather throat Hypertension Maternal Grandfather Social History Tobacco Use Smoking status: Former Packs/day: 0.50 Years: 8.00 Additional pack years: 0.00 Total pack years: 4.00 Types: Cigarettes Quit date: 08/29/2012 Years since quittin.9 Smokeless tobacco: Never Vaping Use Vaping Use: Never used Substance Use Topics Alcohol use: Yes Comment: rarely Drug use: No Review of Systems Constitutional: Negative for chills and fever. HENT: Negative for congestion, ear pain and sore throat. Respiratory: Negative for cough and shortness of breath. Cardiovascular: Negative for chest pain. Gastrointestinal: Negative for diarrhea and vomiting. Musculoskeletal: Positive for arthralgias (Right shoulder pain). Objective BP 126/78 Pulse 78 Temp 36.5 C (97.7 F) Resp 16 Wt 121 kg (266 lb 12.1 oz) LMP 06/20/2023 SpO2 97% BMI 42.87 kg/m Physical Exam Vitals and nursing note reviewed. Constitutional: General: She is not in acute distress. Appearance: Normal appearance. She is not toxic-appearing. Musculoskeletal: Right shoulder: Tenderness and bony tenderness present. Decreased range of motion. Arms: Comments: Tenderness over right anterior shoulder as noted in photo above near the biceps tendon insertion. Patient able to forward flex to 100 degrees and abduction to 100 degrees with pain. She hasnormal strength of the shoulder. Normal ROM elbow and wrist. Normal doctor of audiology strength. Normal sensationright upper extremity. Pulses 2+. No obvious deformity. Skin: General: Skin is warm and dry. Neurological: Mental Status: She is alert. Assessment and Plan ASSESSMENT/PLAN: 1. Acute pain of right shoulder - ICD9: 719.41, ICD10: M25.511 - XR SHOULDER GENERAL 3V OR MORE AP/TRUE AP/OTHER RIGHT-no acute abnormality. -Advised patient we cannot rule out ligamentous injury or rotator cuff injury. Did recommend if symptoms persist follow-up with orthopedics. She is tender over the biceps tendon. Possible biceps tendinitis. -Recommend rest, ice. -Rx for Medrol Dosepak. No NSAIDs while taking this medication. - CONSULT TO ORTHOPAEDICS Diagnosis and treatment plan were discussed and questions were answered to the patient's satisfaction. Pt acknowledged understanding of concepts and follow up plan. Specific signs and symptoms that would indicate the need for higher level of care were discussed in detail warranting prompt ER evaluation. SHIN George [facility] Tele[facility] encounter Note * Telephone Encounter - Annemarie Dick PA-C - 07/27/2023 2:55 PM EDT Patient has not been seen in our office in over a year, I did provide her with 1 more refill. She will either need to schedule a follow-up with us and/or discuss with her PCP additional refills of this medication. [facility]05-07[facility]24 Miscellaneous Notes* Telephone Encounter - Annemarie Dick PA-C - 07/27/2023 2:55 PM EDT Patient has not been seen in our office in over a year, I did provide her with 1 more refill. She will either need to schedule a follow-up with us and/or discuss with her PCP additional refills of this medication. [facility] NoteHNO ID: [id number] Author: EULALIA SKINNER APRN.ALMAS Service: ? Author Type: Nurse Practitioner Type: Progress Notes Filed: 07/27/2023 13:09 Note Text: This note was created using [employer]. Subjective Michaelle Mays is a 43 year old female. 43 year old female with PMH OA presents for abdominal complaints. Acute onset today Woke her up at 0230 Upper abdomen, bilateral Cramping Denies emesis Denies diarrhea Denies fever or chills Denies CP or SOB Tylenol was taken and maybe little relief States she came home from work, and she felt better. She ate bread and yogurt and symptoms returned Has had similar instances in past. Endorses she has a significant family history of GI (IBS) During time of exam states that she feels relief of symptoms. States she needs a work note. The history is provided by the patient. No stucco laborer was used. Abdominal Pain This is a new problem. The current episode started 6 to 12 hours ago. The problem occurs constantly. The problem has not changed since onset.The pain is associated with an unknown factor. The pain is located in the RUQ and LUQ. The quality of the pain is cramping. The pain is at a severity of 5/10. The pain is moderate. Pertinent negatives include anorexia, fever, belching, diarrhea, hematochezia, melena, nausea, vomiting, constipation, dysuria, frequency, hematuria, headaches, arthralgias and myalgias. Nothing aggravates the symptoms. Nothing relieves the symptoms. Past workup does not include GI consult, CT scan, ultrasound, surgery or barium enema. Her past medical history does not include PUD, gallstones, GERD, ulcerative colitis, Crohn's disease or irritable bowel syndrome. 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 montelukast (SINGULAIR) 10 mg tablet take 1 tablet by mouth everyday at bedtime doxepin capsule 25 mg Take 1 capsule by mouth daily at bedtime. diclofenac XR (VOLTAREN-XR) 100 mg Tb24 Take 1 tablet by mouth once daily. famotidine (PEPCID) 20 mg tablet Take 1 tablet by mouth at bedtime as needed. FAMILY HISTORY Problem Relation Age of Onset other (skin Cancer) Mother on face, melanoma Stroke Maternal Grandmother Cancer Maternal Grandfather throat Hypertension Maternal Grandfather Social History Tobacco Use Smoking status: Former Packs/day: 0.50 Years: 8.00 Additional pack years: 0.00 Total pack years: 4.00 Types: Cigarettes Quit date: 08/29/2012 Years since quittin.9 Smokeless tobacco: Never Vaping Use Vaping Use: Never used Substance Use Topics Alcohol use: Yes Comment: rarely Drug use: No Review of Systems Constitutional: Negative for activity change, appetite change, chills and fever. HENT: Negative for congestion, ear pain, rhinorrhea, sinus pressure, sinus pain and sneezing. Eyes: Negative for pain, discharge, redness and itching. Respiratory: Negative for apnea, cough, choking, chest tightness and shortness of breath. Cardiovascular: Negative for chest pain, palpitations and leg swelling. Gastrointestinal: Positive for abdominal pain. Negative for anorexia, constipation, diarrhea, hematochezia, melena, nausea and vomiting. Genitourinary: Negative for dysuria, frequency and hematuria. Musculoskeletal: Negative for arthralgias and myalgias. Skin: Negative for color change, pallor, rash and wound. Allergic/Immunologic: Negative for environmental allergies, food allergies and immunocompromised state. Neurological: Negative for headaches. Hematological: Negative for adenopathy. Does not bruise/bleed easily. Psychiatric/Behavioral: Negative for agitation and behavioral problems. Objective BP 128/68 Pulse 86 Temp 36.6 ?C (97.8 ?F) Resp 16 Wt 121.6 kg (268 lb 1.3 oz) LMP 06/20/2023 SpO2 99% BMI 43.08 kg/m? Physical Exam Vitals and nursing note reviewed. Constitutional: General: She is not in acute distress. Appearance: Normal appearance. She is obese. She is not ill-appearing, toxic-appearing or diaphoretic. HENT: Head: Normocephalic and atraumatic. Right Ear: Ear canal and external ear normal. Left Ear: Ear canal and external ear normal. Nose: Nose normal. No congestion or rhinorrhea. Mouth/Throat: Mouth: Mucous membranes are moist. Pharynx: No oropharyngeal exudate or posterior o (more content not included)... [facility]05-07-2024 History of Present illness Narrative* Eulalia Skinner APRN.PITCHING COACH - 07/27/2023 12:51 PM EDT This note was created using NoteWriter. Subjective Michaelle Mays is a 43 year old female. 43 year old female with PMH OA presents for abdominal complaints. Acute onset today Woke her up at 0230 Upper abdomen, bilateral Cramping Denies emesis Denies diarrhea Denies fever or chills Denies CP or SOB Tylenol was taken and maybe little relief States she came home from work, and she felt better. She ate bread and yogurt and symptoms returned Has had similar instances in past. Endorses she has a significant family history of GI (IBS) During time of exam states that she feels relief of symptoms. States she needs a work note. The history is provided by the patient. No stucco laborer was used. Abdominal Pain This is a new problem. The current episode started 6 to 12 hours ago. The problem occurs constantly. The problem has not changed since onset.The pain is associated with an unknown factor. The pain islocated in the RUQ and LUQ. The quality of the pain is cramping. The pain is at a severity of 5/10.The pain is moderate. Pertinent negatives include anorexia, fever, belching, diarrhea, hematochezia, melena, nausea, vomiting, constipation, dysuria, frequency, hematuria, headaches, arthralgias and myalgias. Nothing aggravates the symptoms. Nothing relieves the symptoms. Past workup does not include GI consult, CT scan, ultrasound, surgery or barium enema. Her past medical history does not include PUD, gallstones, GERD, ulcerative colitis, Crohn's disease or irritable bowel syndrome. 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 montelukast (SINGULAIR) 10 mg tablet take 1 tablet by mouth everyday at bedtime doxepin capsule 25 mg Take 1 capsule by mouth daily at bedtime. diclofenac XR (VOLTAREN-XR) 100 mg Tb24 Take 1 tablet by mouth once daily. famotidine (PEPCID) 20 mg tablet Take 1 tablet by mouth at bedtime as needed. FAMILY HISTORY Problem Relation Age of Onset other (skin Cancer) Mother on face, melanoma Stroke Maternal Grandmother Cancer Maternal Grandfather throat Hypertension Maternal Grandfather Social History Tobacco Use Smoking status: Former Packs/day: 0.50 Years: 8.00 Additional pack years: 0.00 Total pack years: 4.00 Types: Cigarettes Quit date: 08/29/2012 Years since quittin.9 Smokeless tobacco: Never Vaping Use Vaping Use: Never used Substance Use Topics Alcohol use: Yes Comment: rarely Drug use: No Review of Systems Constitutional: Negative for activity change, appetite change, chills and fever. HENT: Negative for congestion, ear pain, rhinorrhea, sinus pressure, sinus pain and sneezing. Eyes: Negative for pain, discharge, redness and itching. Respiratory: Negative for apnea, cough, choking, chest tightness and shortness of breath. Cardiovascular: Negative for chest pain, palpitations and leg swelling. Gastrointestinal: Positive for abdominal pain. Negative for anorexia, constipation, diarrhea, hematochezia, melena, nausea and vomiting. Genitourinary: Negative for dysuria, frequency and hematuria. Musculoskeletal: Negative for arthralgias and myalgias. Skin: Negative for color change, pallor, rash and wound. Allergic/Immunologic: Negative for environmental allergies, food allergies and immunocompromised state. Neurological: Negative for headaches. Hematological: Negative for adenopathy. Does not bruise/bleed easily. Psychiatric/Behavioral: Negative for agitation and behavioral problems. Objective BP 128/68 Pulse 86 Temp 36.6 C (97.8 F) Resp 16 Wt 121.6 kg (268 lb 1.3 oz) LMP 06/20/2023 SpO2 99% BMI 43.08 kg/m Physical Exam Vitals and nursing note reviewed. Constitutional: General: She is not in acute distress. Appearance: Normal appearance. She is obese. She is not ill-appearing, toxic- appearing or diaphoretic. HENT: Head: Normocephalic and atraumatic. Right Ear: Ear canal and external ear normal. Left Ear: Ear canal and external ear normal. Nose: Nose normal. No congestion or rhinorrhea. Mouth/Throat: Mouth: Mucous membranes are moist. Pharynx: No oropharyngeal exudate or posterior oropharyngeal erythema. Eyes: General: Right eye: No discharge. Left eye: No discharge. Extraocular Movements: Extraocular movements intact. Conjunctiva/sclera: Conjunctivae normal. Pupils: Pupils are equal, round, and reactive to light. Cardiovascular: Rate and Rhythm: Normal rate and regular rhythm. Pulses: Normal pulses. Heart sounds: Normal heart sounds. No murmur heard. No friction rub. Pulmonary: Effort: Pulmonary effort is normal. No respiratory distress. Breath sounds: Normal breath sounds. No stridor. No wheezing, rhonchi or rales. Chest: Chest wall: No tenderness. Abdominal: General: Abdomen is flat. There is no distension. Palpations: Abdomen is soft. There is no mass. Tenderness: There is no abdominal tenderness. There is no right CVA tenderness, left CVA tenderness, guarding or rebound. Hernia: No hernia is present. Comments: No tenderness noted. Abdomen soft and no guarding. Bowel sounds x 4 Musculoskeletal: General: No swelling, tenderness, deformity or signs of injury. Normal range of motion. Cervical back: Normal range of motion and neck supple. No rigidity. Right lower leg: No edema. Left lower leg: No edema. Lymphadenopathy: Cervical: No cervical adenopathy. Skin: General: Skin is warm and dry. Coloration: Skin is not jaundiced or pale. Findings: No bruising, erythema, lesion or rash. Neurological: General: No focal deficit present. Mental Status: She is alert and oriented to person, place, and time. Cranial Nerves: No cranial nerve deficit. Sensory: No sensory deficit. Motor: No weakness. Coordination: Coordination normal. Gait: Gait normal. Psychiatric: Mood and Affect: Mood normal. Behavior: Behavior normal. Thought Content: Thought content normal. Judgment: Judgment normal. Assessment and Plan ASSESSMENT/PLAN: 1. Pain of upper abdomen - ICD9: 789.09, ICD10: R10.10 Acute onset 0230 today Sx improved, in fact resolved at time of exam Etiology unclear Differential Diagnosis includes GERD, IBS, and Gall bladder colic/cholelithiasis - Begin treatment with Pepcid 20 mg QD - [place] low residue diet - Follow up in 2 days or sooner if worsening of symptoms Discussed red flags and reasons to seek ED Work note provided Eulalia Skinner APRN.PITCHING COACH [facility] NoteHNO ID: [id number] Author: EULALIA SKINNER APRN.ALMAS Service: ? Author Type: Nurse Practitioner Type: Progress Notes Filed: 07/11/2023 08:49 Note Text: This note was created using NoteWriter. Subjective Michaelle Mays is a 43 year old female. 43 year old female with PMH OA presents for hand complaints. Acute on chronic States she has had this happen several times in past year. This episode started 3 days ago Left palm +raised spot +tender +warm Denies known trauma or injury. Denies new lotions, soaps, or medicines. Denies reduced or limited ROM. Denies fever or chills Denies drainage. Right hand dominant. 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 She is scheduled to see derm in August related to this. She states they haven't really told me what it is She endorses comes in different spots on my hand The history is provided by the patient. No stucco laborer was used. Musculoskeletal Problem This is a recurrent problem. The current episode started in the past 7 days. The problem occurs constantly. The problem has been unchanged. Pertinent negatives include no abdominal pain, anorexia, arthralgias, change in bowel habit, chest pain, chills, congestion, coughing, diaphoresis, fatigue, fever, headaches, joint swelling, myalgias, nausea, neck pain, numbness, rash, sore throat, swollen glands, urinary symptoms, vertigo, visual change, vomiting or weakness. Exacerbated by: touching and use of hand. She has tried nothing for the symptoms. The treatment provided no relief. 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 montelukast (SINGULAIR) 10 mg tablet take 1 tablet by mouth everyday at bedtime doxepin capsule 25 mg Take 1 capsule by mouth daily at bedtime. diclofenac XR (VOLTAREN-XR) 100 mg Tb24 Take 1 tablet by mouth once daily. doxycycline (VIBRA-TABS) 100 mg tablet Take 1 tablet by mouth two times a day for 7 days. FAMILY HISTORY Problem Relation Age of Onset other (skin Cancer) Mother on face, melanoma Stroke Maternal Grandmother Cancer Maternal Grandfather throat Hypertension Maternal Grandfather Social History Tobacco Use Smoking status: Former Packs/day: 0.50 Years: 8.00 Additional pack years: 0.00 Total pack years: 4.00 Types: Cigarettes Quit date: 08/29/2012 Years since quittin.8 Smokeless tobacco: Never Vaping Use Vaping Use: Never used Substance Use Topics Alcohol use: Yes Comment: rarely Drug use: No Review of Systems Constitutional: Negative for chills, diaphoresis, fatigue and fever. HENT: Negative for congestion and sore throat. Eyes: Negative for pain, discharge and itching. Respiratory: Negative for apnea, cough and chest tightness. Cardiovascular: Negative for chest pain. Gastrointestinal: Negative for abdominal pain, anorexia, change in bowel habit, nausea and vomiting. Musculoskeletal: Negative for arthralgias, joint swelling, myalgias and neck pain. Skin: Negative for color change, pallor and rash. Allergic/Immunologic: Negative for environmental allergies, food allergies and immunocompromised state. Neurological: Negative for dizziness, vertigo, facial asymmetry, weakness, numbness and headaches. Hematological: Negative for adenopathy. Does not bruise/bleed easily. Psychiatric/Behavioral: Negative for agitation and behavioral problems. Objective BP 122/62 Pulse 85 Temp 36.2 ?C (97.2 ?F) Resp 16 Wt 122.2 kg (269 lb 6.4 oz) LMP 06/20/2023 SpO2 98% BMI 43.30 kg/m? Physical Exam Vitals and nursing note reviewed. Constitutional: General: She is not in acute distress. Appearance: Normal appearance. She is normal weight. She is not ill-appearing, toxic-appearing or diaphoretic. HENT: Head: Normocephalic and atraumatic. Right Ear: Ear canal and external ear normal. Left Ear: Ear canal and external ear normal. Nose: Nose normal. No congestion or rhinorrhea. Mouth/Throat: Mouth: Mucous membranes are moist. Pharynx: No oropharyngeal exudate or posterior oropharyngeal erythema. Eyes: General: Right eye: No discharge. Left eye: No discharge. Extraocular Movements: Extraocular movements intact. Conjunctiva/sclera: Conjunctivae normal. Pupils: Pupils are equal, round, and (more content not included)...[facility] History of Present illness Narrative* Eulalia Skinner APRN.[facility] - 07/11/2023 8:15 AM EDT This note was created using NoteWriter. Subjective Michaelle Mays is a 43 year old female. 43 year old female with PMH OA presents for hand complaints. Acute on chronic States she has had this happen several times in past year. This episode started 3 days ago Left palm +raised spot +tender +warm Denies known trauma or injury. Denies new lotions, soaps, or medicines. Denies reduced or limited ROM. Denies fever or chills Denies drainage. Right hand dominant. 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 She is scheduled to see derm in August related to this. She states they haven't really told me what it is She endorses comes in different spots on my hand The history is provided by the patient. No stucco laborer was used. Musculoskeletal Problem This is a recurrent problem. The current episode started in the past 7 days. The problem occurs constantly. The problem has been unchanged. Pertinent negatives include no abdominal pain, anorexia, arthralgias, change in bowel habit, chest pain, chills, congestion, coughing, diaphoresis, fatigue, fever, headaches, joint swelling, myalgias, nausea, neck pain, numbness, rash, sore throat, swollen glands, urinary symptoms, vertigo, visual change, vomiting or weakness. Exacerbated by: touching and use of hand. She has tried nothing for the symptoms. The treatment provided no relief. 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 montelukast (SINGULAIR) 10 mg tablet take 1 tablet by mouth everyday at bedtime doxepin capsule 25 mg Take 1 capsule by mouth daily at bedtime. diclofenac XR (VOLTAREN-XR) 100 mg Tb24 Take 1 tablet by mouth once daily. doxycycline (VIBRA-TABS) 100 mg tablet Take 1 tablet by mouth two times a day for 7 days. FAMILY HISTORY Problem Relation Age of Onset other (skin Cancer) Mother on face, melanoma Stroke Maternal Grandmother Cancer Maternal Grandfather throat Hypertension Maternal Grandfather Social History Tobacco Use Smoking status: Former Packs/day: 0.50 Years: 8.00 Additional pack years: 0.00 Total pack years: 4.00 Types: Cigarettes Quit date: 08/29/2012 Years since quittin.8 Smokeless tobacco: Never Vaping Use Vaping Use: Never used Substance Use Topics Alcohol use: Yes Comment: rarely Drug use: No Review of Systems Constitutional: Negative for chills, diaphoresis, fatigue and fever. HENT: Negative for congestion and sore throat. Eyes: Negative for pain, discharge and itching. Respiratory: Negative for apnea, cough and chest tightness. Cardiovascular: Negative for chest pain. Gastrointestinal: Negative for abdominal pain, anorexia, change in bowel habit, nausea and vomiting. Musculoskeletal: Negative for arthralgias, joint swelling, myalgias and neck pain. Skin: Negative for color change, pallor and rash. Allergic/Immunologic: Negative for environmental allergies, food allergies and immunocompromised state. Neurological: Negative for dizziness, vertigo, facial asymmetry, weakness, numbness and headaches. Hematological: Negative for adenopathy. Does not bruise/bleed easily. Psychiatric/Behavioral: Negative for agitation and behavioral problems. Objective BP 122/62 Pulse 85 Temp 36.2 C (97.2 F) Resp 16 Wt 122.2 kg (269 lb 6.4 oz) LMP 06/20/2023 SpO2 98% BMI 43.30 kg/m Physical Exam Vitals and nursing note reviewed. Constitutional: General: She is not in acute distress. Appearance: Normal appearance. She is normal weight. She is not ill-appearing, toxic-appearing or diaphoretic. HENT: Head: Normocephalic and atraumatic. Right Ear: Ear canal and external ear normal. Left Ear: Ear canal and external ear normal. Nose: Nose normal. No congestion or rhinorrhea. Mouth/Throat: Mouth: Mucous membranes are moist. Pharynx: No oropharyngeal exudate or posterior oropharyngeal erythema. Eyes: General: Right eye: No discharge. Left eye: No discharge. Extraocular Movements: Extraocular movements intact. Conjunctiva/sclera: Conjunctivae normal. Pupils: Pupils are equal, round, and reactive to light. Cardiovascular: Rate and Rhythm: Normal rate and regular rhythm. Pulses: Normal pulses. Heart sounds: Normal heart sounds. No murmur heard. No friction rub. Pulmonary: Effort: Pulmonary effort is normal. No respiratory distress. Breath sounds: Normal breath sounds. No stridor. No wheezing, rhonchi or rales. Chest: Chest wall: No tenderness. Abdominal: General: Abdomen is flat. There is no distension. Palpations: Abdomen is soft. There is no mass. Tenderness: There is no abdominal tenderness. There is no right CVA tenderness, left CVA tenderness, guarding or rebound. Hernia: No hernia is present. Musculoskeletal: General: No swelling, tenderness, deformity or signs of injury. Normal range of motion. Cervical back: Normal range of motion and neck supple. No rigidity. Right lower leg: No edema. Left lower leg: No edema. Lymphadenopathy: Cervical: No cervical adenopathy. Skin: General: Skin is warm and dry. Capillary Refill: Capillary refill takes less than 2 seconds. Coloration: Skin is not jaundiced or pale. Findings: Erythema present. No bruising, lesion or rash. Comments: Left dorsal hand with tense bullae just below MCP joint. + TTP Mild erythema surrounding without excessive warmth. No active drainage. No red streaking Neurological: General: No focal deficit present. Mental Status: She is alert and oriented to person, place, and time. Cranial Nerves: No cranial nerve deficit. Sensory: No sensory deficit. Motor: No weakness. Coordination: Coordination normal. Gait: Gait normal. Psychiatric: Mood and Affect: Mood normal. Behavior: Behavior normal. Thought Content: Thought content normal. Judgment: Judgment normal. Assessment and Plan ASSESSMENT/PLAN: 1. Blister of left hand excluding fingers, subsequent encounter - ICD9: V58.89, ICD10: S60.522D Acute on chronic Endorses she has had similar episodes in past. Unsure of exact etiology for recurrence Denies trauma or injury Applied ATB ointment and non adherent with haroldo RX Doxy to cover for any potential infection given surrounding erythema Keep follow up with derm in August Discussed red flags Eulalia Skinner APRN.ALMAS documented in this [facility] NoteHNO ID: [id number] Author: ESTELITA RIVERA PA Service: ? Author Type: Physician Help Desk Team Leader Type: Progress Notes Filed: 06/30/2023 07:33 Note Text: This note was created using NoteWriter. Subjective Michaelle Mays is a 43 year old female. HPI 43-year-old female presents for diarrhea and chills. Patient states she is having diarrhea yesterday. She had 3-4 episodes of diarrhea yesterday and 1 this morning. No blood in the stool. No abdominal pain. States she has a little bit of nausea, no vomiting. No fevers. States she felt a little bit chilled yesterday. No cough, congestion or URI symptoms. No sick contacts that she is aware of. Did not eat anything out of the ordinary prior to the starting. No history of IBS or bowel disease. No other complaint. 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 montelukast (SINGULAIR) 10 mg tablet take 1 tablet by mouth everyday at bedtime doxepin capsule 25 mg Take 1 capsule by mouth daily at bedtime. diclofenac XR (VOLTAREN-XR) 100 mg Tb24 Take 1 tablet by mouth once daily. FAMILY HISTORY Problem Relation Age of Onset other (skin Cancer) Mother on face, melanoma Stroke Maternal Grandmother Cancer Maternal Grandfather throat Hypertension Maternal Grandfather Social History Tobacco Use Smoking status: Former Packs/day: 0.50 Years: 8.00 Additional pack years: 0.00 Total pack years: 4.00 Types: Cigarettes Quit date: 08/29/2012 Years since quittin.8 Smokeless tobacco: Never Vaping Use Vaping Use: Never used Substance Use Topics Alcohol use: Yes Comment: rarely Drug use: No Review of Systems Constitutional: Positive for chills. Negative for fever. HENT: Negative for congestion, ear pain and sore throat. Respiratory: Negative for cough and shortness of breath. Cardiovascular: Negative for chest pain. Gastrointestinal: Positive for diarrhea and nausea. Negative for abdominal pain and vomiting. Objective BP 142/78 Pulse 88 Temp 36.9 ?C (98.5 ?F) Resp 16 Wt 121 kg (266 lb 12.8 oz) LMP 06/20/2023 SpO2 98% BMI 42.88 kg/m? Physical Exam Vitals and nursing note reviewed. Constitutional: General: She is not in acute distress. Appearance: Normal appearance. She is not toxic-appearing. HENT: Right Ear: Tympanic membrane and ear canal normal. Left Ear: Tympanic membrane and ear canal normal. Nose: Nose normal. Mouth/Throat: Mouth: Mucous membranes are moist. Eyes: Conjunctiva/sclera: Conjunctivae normal. Cardiovascular: Rate and Rhythm: Normal rate and regular rhythm. Pulmonary: Effort: Pulmonary effort is normal. Breath sounds: Normal breath sounds. No wheezing, rhonchi or rales. Abdominal: General: Abdomen is flat. Palpations: Abdomen is soft. Tenderness: There is no abdominal tenderness. There is no guarding or rebound. Skin: General: Skin is warm and dry. Neurological: Mental Status: She is alert. Assessment and Plan ASSESSMENT/PLAN: 1. Diarrhea, unspecified type - ICD9: 787.91, ICD10: R19.7 -Suspect viral. Only 1 episode of diarrhea this morning. No blood in the stool, no fevers. -Recommend bland diet/brat diet. -Hydration, rest. -Patient declines COVID/flu swab. -Work note given for today. Diagnosis and treatment plan were discussed and questions were answered to the patient's satisfaction. Pt acknowledged understanding of concepts and follow up plan. Specific signs and symptoms that would indicate the need for higher level of care were discussed in detail warranting prompt ER evaluation. Estelita Rivera [facility]04-10-2024 History of Present illness Narrative* Estelita Rivera PA - 06/30/2023 7:31 AM EDT This note was created using NoteWriter. Subjective Michaelle Mays is a 43 year old female. HPI 43-year-old female presents for diarrhea and chills. Patient states she is having diarrhea yesterday. She had 3-4 episodes of diarrhea yesterday and 1 this morning. No blood in the stool. No abdominal pain. States she has a little bit of nausea, no vomiting. No fevers. States she felt a little bit chilled yesterday. No cough, congestion or URI symptoms. No sick contacts that she is aware of. Did not eat anything out of the ordinary prior to the starting. No history of IBS or bowel disease. No other complaint. 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 montelukast (SINGULAIR) 10 mg tablet take 1 tablet by mouth everyday at bedtime doxepin capsule 25 mg Take 1 capsule by mouth daily at bedtime. diclofenac XR (VOLTAREN-XR) 100 mg Tb24 Take 1 tablet by mouth once daily. FAMILY HISTORY Problem Relation Age of Onset other (skin Cancer) Mother on face, melanoma Stroke Maternal Grandmother Cancer Maternal Grandfather throat Hypertension Maternal Grandfather Social History Tobacco Use Smoking status: Former Packs/day: 0.50 Years: 8.00 Additional pack years: 0.00 Total pack years: 4.00 Types: Cigarettes Quit date: 08/29/2012 Years since quittin.8 Smokeless tobacco: Never Vaping Use Vaping Use: Never used Substance Use Topics Alcohol use: Yes Comment: rarely Drug use: No Review of Systems Constitutional: Positive for chills. Negative for fever. HENT: Negative for congestion, ear pain and sore throat. Respiratory: Negative for cough and shortness of breath. Cardiovascular: Negative for chest pain. Gastrointestinal: Positive for diarrhea and nausea. Negative for abdominal pain and vomiting. Objective BP 142/78 Pulse 88 Temp 36.9 C (98.5 F) Resp 16 Wt 121 kg (266 lb 12.8 oz) LMP 06/20/2023 SpO2 98% BMI 42.88 kg/m Physical Exam Vitals and nursing note reviewed. Constitutional: General: She is not in acute distress. Appearance: Normal appearance. She is not toxic-appearing. HENT: Right Ear: Tympanic membrane and ear canal normal. Left Ear: Tympanic membrane and ear canal normal. Nose: Nose normal. Mouth/Throat: Mouth: Mucous membranes are moist. Eyes: Conjunctiva/sclera: Conjunctivae normal. Cardiovascular: Rate and Rhythm: Normal rate and regular rhythm. Pulmonary: Effort: Pulmonary effort is normal. Breath sounds: Normal breath sounds. No wheezing, rhonchi or rales. Abdominal: General: Abdomen is flat. Palpations: Abdomen is soft. Tenderness: There is no abdominal tenderness. There is no guarding or rebound. Skin: General: Skin is warm and dry. Neurological: Mental Status: She is alert. Assessment and Plan ASSESSMENT/PLAN: 1. Diarrhea, unspecified type - ICD9: 787.91, ICD10: R19.7 -Suspect viral. Only 1 episode of diarrhea this morning. No blood in the stool, no fevers. -Recommend bland diet/brat diet. -Hydration, rest. -Patient declines COVID/flu swab. -Work note given for today. Diagnosis and treatment plan were discussed and questions were answered to the patient's satisfaction. Pt acknowledged understanding of concepts and follow up plan. Specific signs and symptoms that would indicate the need for higher level of care were discussed in detail warranting prompt ER evaluation. SHIN George documented [facility] this [facility] Instructions* Patient Instructions* Estelita Rivera PA - 06/30/2023 7:29 AM EDT BRAT DIET (may eat any of the following as tolerated) Bananas Applesauce [place] Crackers Animal Crackers Pretzels Oatmeal Unsweetened Dry Cereal (Rice Krispies, Cheerios) Plain Baked or Boiled Potato Plain White Rice Plain Noodles All clear liquid listed below CLEAR LIQUID DIET hour) Broth Jello Popsicles Pedialyte Gatorade NO Milk NO Dairy Products documented in this encounterK[facility]-04-2024 NoteHNO ID: [id number] Author: JAZZ WRIGHT APRN.PITCHING COACH Service: ? Author Type: Nurse Practitioner Type: Progress Notes Filed: 05/24/2023 15:42 Note Text: 05/24/2023 Patient presents with: Follow Up: Blister on left hand; taking bactrim and doesn't think it's working as it did prior. SUBJECTIVE: This is a 43 year old that is here today for Above Complaints. [facility] blister to left hand. Placed on Bactrim and mupirocin applied to area. Taking and tolerating Bactrim.Started initially on Wednesday. Started as a small bump and then gradually increased. Denies fevers, chills, itching, other skin blisters, recent contact with plants or new lotions or soaps, recent injury, drainage from area, redness or excessive warmth. Is right hand dominant. Per patient she has had this occur before. 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 levonorgestrel-ethinyl estradiol (ALTAVERA, 28,) 0.15-0.03 mg per tab Take 1 tablet by mouth once daily. montelukast (SINGULAIR) 10 mg tablet take 1 tablet by mouth everyday at bedtime doxepin capsule 25 mg Take 1 capsule by mouth daily at bedtime. diclofenac XR (VOLTAREN-XR) 100 mg Tb24 Take 1 tablet by mouth once daily. No current facility-administered medications for this visit. Medications and allergies reviewed by this provider. SOCIAL HISTORY Social History Tobacco Use Smoking status: Former Packs/day: 0.50 Years: 8.00 Additional pack years: 0.00 Total pack years: 4.00 Types: Cigarettes Quit date: 08/29/2012 Years since quittin.7 Smokeless tobacco: Never Vaping Use Vaping Use: Never used Substance Use Topics Alcohol use: Yes Comment: rarely Drug use: No REVIEW OF SYSTEMS All other reviewed and negative other than HPI. OBJECTIVE: BP 124/80 Pulse 101 Temp 36.9 ?C (98.4 ?F) Resp 18 Wt 120 kg (264 lb 9.6 oz) LMP 04/26/2023 SpO2 98% BMI 42.52 kg/m? . Vital signs reviewed by this provider. APPEARANCE Well appearing, alert, in no acute distress, well-hydrated, well nourished. LEFT HAND: dorsal hand under index finger with tense bullae. Mild erythema surrounding without excessive warmth. No active drainage. No red streaking Influenza Vaccine(1) due on 11/20/2022 Covid-19 Vaccine(5 - 2022- season) due on 11/20/2022 DTaP,Tdap,Td Vaccine(2 - Td or Tdap) due on 12/06/2022 Depression Assessment Never done Pap Testing due on 04/29/2023 Colorectal Cancer Screening due on 2023 Mammogram Screening due on 10/03/2023 HPV Testing due on 04/26/2024 Lipid Screening due on 09/26/2025 Diabetes Screening due on 02/08/2026 Hepatitis C Screening Completed HIV Screening Completed HPV Vaccine Aged Out ASSESSMENT/PLAN: 1. Blister (nonthermal) of left hand, sequela - ICD9: 906.2, ICD10: S60.522S Consider palmoplantar eczema - continue Bactrim - no red flag symptoms or exam findings - red flag symptoms discussed, verbalizes understanding - keep protected. If starts to drain keep covered. If starts to drain purulent drainage return to office - will have her see derm as this has happened before to same area, to ER with red flag symptoms - CONSULT TO DERMATOLOGY Jazz PodlogNEDRA rangel.PITCHING COACH Prescription instructions reviewed with patient as applicable. Patient advised if symptoms do not improve or if symptoms worsen sooner, to contact their primary care physician. Potential red flag symptoms discussed with the patient. Reviewed appropriate action plan to take if red flag symptoms occur. Patient agreeable to treatment plan. Medical Decision Making: Problems: Moderate: New problem with uncertain prognosis Risk: Low: Low risk from testing/treatment Medical Decision Making Level: 3 - [facility]03-04-2024 History of Present illness Narrative* Podlogar, NEDRA Schulz.PITCHING COACH - 05/24/2023 3:00 PM EST 05/24/2023 Patient presents with: Follow Up: Blister on left hand; taking bactrim and doesn't think it's working as it did prior. SUBJECTIVE: This is a 43 year old that is here today for Above Complaints. [facility]ister to left hand. Placed on Bactrim and mupirocin applied toarea. Taking and tolerating Bactrim.Started initially on Wednesday. Started as a small bump and then gradually increased. Denies fevers, chills, itching, other skin blisters, recent contact with plants or new lotions or soaps, recent injury, drainage from area, redness or excessive warmth. Is righthand dominant. Per patient she has had this occur before. 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 levonorgestrel-ethinyl estradiol (ALTAVERA, 28,) 0.15-0.03 mg per tab Take 1 tablet by mouth once daily. montelukast (SINGULAIR) 10 mg tablet take 1 tablet by mouth everyday at bedtime doxepin capsule 25 mg Take 1 capsule by mouth daily at bedtime. diclofenac XR (VOLTAREN-XR) 100 mg Tb24 Take 1 tablet by mouth once daily. No current facility-administered medications for this visit. Medications and allergies reviewed by this provider. SOCIAL HISTORY Social History Tobacco Use Smoking status: Former Packs/day: 0.50 Years: 8.00 Additional pack years: 0.00 Total pack years: 4.00 Types: Cigarettes Quit date: 08/29/2012 Years since quittin.7 Smokeless tobacco: Never Vaping Use Vaping Use: Never used Substance Use Topics Alcohol use: Yes Comment: rarely Drug use: No REVIEW OF SYSTEMS All other reviewed and negative other than HPI. OBJECTIVE: BP 124/80 Pulse 101 Temp 36.9 C (98.4 F) Resp 18 Wt 120 kg (264 lb 9.6 oz) LMP 04/26/2023 SpO2 98% BMI 42.52 kg/m . Vital signs reviewed by this provider. APPEARANCE Well appearing, alert, in no acute distress, well-hydrated, well nourished. LEFT HAND: dorsal hand under index finger with tense bullae. Mild erythema surrounding without excessive warmth. No active drainage. No red streaking Influenza Vaccine(1) due on 11/20/2022 Covid-19 Vaccine( - 2022- season) due on 11/20/2022 DTaP,Tdap,Td Vaccine(2 - Td or Tdap) due on 12/06/2022 Depression Assessment Never done Pap Testing due on 04/29/2023 Colorectal Cancer Screening due on 2023 Mammogram Screening due on 10/03/2023 HPV Testing due on 04/26/2024 Lipid Screening due on 09/26/2025 Diabetes Screening due on 02/08/2026 Hepatitis C Screening Completed HIV Screening Completed HPV Vaccine Aged Out ASSESSMENT/PLAN: 1. Blister (nonthermal) of left hand, sequela - ICD9: 906.2, ICD10: S60.522S Consider palmoplantar eczema - continue Bactrim - no red flag symptoms or exam findings - red flag symptoms discussed, verbalizes understanding - keep protected. If starts to drain keep covered. If starts to drain purulent drainage return to office - will have her see derm as this has happened before to same area, to ER with red flag symptoms - CONSULT TO DERMATOLOGY Jazz BaconlogGRACE rangel Prescription instructions reviewed with patient as applicable. Patient advised if symptoms do not improve or if symptoms worsen sooner, to contact their primary care physician. Potential red flag symptoms discussed with the patient. Reviewed appropriate action plan to take if red flag symptoms occur. Patient agreeable to treatment plan. Medical Decision Making: Problems: Moderate: New problem with uncertain prognosis Risk: Low: Low risk from testing/treatment Medical Decision Making Level: 3 - Low documented in this encounterK[facility]24 NoteHNO ID: [id number] Author: MERLYN MEDEL PA-C Service: ? Author Type: Physician Help Desk Team Leader Type: Progress Notes Filed: 05/23/2023 08:23 Note Text: This note was created using Centrafuser[employer]. Subjective Michaelle Mays is a 43 year old female. HPI Patient presents with a blister on her left hand over the past 3 days. States it started off as a small ramírez and then grew. She has had this happen to other times. She states she was treated with Bactrim before and that seemed to take care of it. 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 No drainage from the area. No fever. It is painful. She states she was not doing anything extra with the hand to create a friction blister. Review of Systems Musculoskeletal: Left hand blister All other systems reviewed and are negative. 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 84 tablet 4 montelukast (SINGULAIR) 10 mg tablet take 1 tablet by mouth everyday at bedtime 90 tablet 2 doxepin capsule 25 mg Take 1 capsule by mouth daily at bedtime. 90 capsule 3 diclofenac XR (VOLTAREN-XR) 100 mg Tb24 Take 1 tablet by mouth once daily. 30 tablet 6 sulfamethoxazole-trimethoprim (BACTRIM DS) 800-160 mg per tablet Take 1 tablet by mouth two times a day for 7 days. 14 tablet 0 No current facility-administered medications for this visit. PAST SURGICAL HISTORY Procedure Laterality Date INDUCED HX 2009 LAPAROSCOPY SURG CHOLECYSTECTOMY 2013 Cholecystectomy, lap PAST SURGICAL HISTORY OF 1998 vaginal wart removal VAGINOSCOPY 2017 FAMILY HISTORY Problem Relation Age of Onset other (skin Cancer) Mother on face, melanoma Stroke Maternal Grandmother Cancer Maternal Grandfather throat Hypertension Maternal Grandfather Social History Tobacco Use Smoking status: Former Packs/day: 0.50 Years: 8.00 Additional pack years: 0.00 Total pack years: 4.00 Types: Cigarettes Quit date: 08/29/2012 Years since quittin.7 Smokeless tobacco: Never Vaping Use Vaping Use: Never used Substance Use Topics Alcohol use: Yes Comment: rarely Drug use: No Objective BP 138/88 Pulse 120 Temp 37.1 ?C (98.7 ?F) Resp 21 Wt 120.7 kg (266 lb) LMP 04/26/2023 SpO2 95% BMI 42.75 kg/m? Physical Exam Vitals reviewed. Constitutional: Appearance: Normal appearance. HENT: Head: Normocephalic and atraumatic. Musculoskeletal: Hands: Comments: Patient has large vesicle on the palm of the left hand. Some surrounding erythema. vesicle is intact. Skin: General: Skin is warm and dry. Neurological: Mental Status: She is alert. Assessment and Plan ASSESSMENT/PLAN: 1. Blister of left hand, initial encounter - ICD9: 914.2, ICD10: S60.522A Patient states previously Bactrim has taking care of this. She does have a history of MRSA before. I did place a nonstick dressing with gauze and mupirocin over the area. Bactrim Rx to her pharmacy. She will follow-up with PCP as this is the third time this has happened. [facility]03-03-2024 History of Present illness Narrative* Merlyn Medel PA-C - 05/23/2023 8:21 AM EST Images from the original note were not included. This note was created using [employer]. Subjective Michaelle Mays is a 43 year old female. HPI Patient presents with a blister on her left hand over the past 3 days. States it started off as a small ramírez and then grew. She has had this happen to other times. She states she was treated with Bactrim before and that seemed to take care of it. 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 No drainage from the area. No fever. It is painful. She states she was not doing anything extra with the hand to create a friction blister. Review of Systems Musculoskeletal: Left hand blister All other systems reviewed and are negative. 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 84 tablet 4 montelukast (SINGULAIR) 10 mg tablet take 1 tablet by mouth everyday at bedtime 90 tablet 2 doxepin capsule 25 mg Take 1 capsule by mouth daily at bedtime. 90 capsule 3 diclofenac XR (VOLTAREN-XR) 100 mg Tb24 Take 1 tablet by mouth once daily. 30 tablet 6 sulfamethoxazole-trimethoprim (BACTRIM DS) 800-160 mg per tablet Take 1 tablet by mouth two times aday for 7 days. 14 tablet 0 No current facility-administered medications for this visit. PAST SURGICAL HISTORY Procedure Laterality Date INDUCED HX 2009 LAPAROSCOPY SURG CHOLECYSTECTOMY 2013 Cholecystectomy, lap PAST SURGICAL HISTORY OF 1998 vaginal wart removal VAGINOSCOPY 2017 FAMILY HISTORY Problem Relation Age of Onset other (skin Cancer) Mother on face, melanoma Stroke Maternal Grandmother Cancer Maternal Grandfather throat Hypertension Maternal Grandfather Social History Tobacco Use Smoking status: Former Packs/day: 0.50 Years: 8.00 Additional pack years: 0.00 Total pack years: 4.00 Types: Cigarettes Quit date: 08/29/2012 Years since quittin.7 Smokeless tobacco: Never Vaping Use Vaping Use: Never used Substance Use Topics Alcohol use: Yes Comment: rarely Drug use: No Objective BP 138/88 Pulse 120 Temp 37.1 C (98.7 F) Resp 21 Wt 120.7 kg (266 lb) LMP 04/26/2023 SpO2 95% BMI 42.75 kg/m Physical Exam Vitals reviewed. Constitutional: Appearance: Normal appearance. HENT: Head: Normocephalic and atraumatic. Musculoskeletal: Hands: Comments: Patient has large vesicle on the palm of the left hand. Some surrounding erythema. vesicle is intact. Skin: General: Skin is warm and dry. Neurological: Mental Status: She is alert. Assessment and Plan ASSESSMENT/PLAN: 1. Blister of left hand, initial encounter - ICD9: 914.2, ICD10: S60.522A Patient states previously Bactrim has taking care of this. She does have a history of MRSA before. I did place a nonstick dressing with gauze and mupirocin over the area. Bactrim Rx to her pharmacy. She will follow-up with PCP as this is the third time this has happened. Merlyn Medel PA-C documented [facility] NoteHNO ID: [id number] Author: KOTA LACY APRN.[employer] Service: ? Author Type: Nurse Practitioner Type: Progress Notes Filed: 05/20/2023 07:49 Note Text: Subjective HPI HPI Michaelle Mays is a 43 year old female who presents today for CC of cough, congestion, fatigue, diarrhea. This started 2 days ago. Has tried otc medication for relief. Symptoms are worsened by nothing. Risk factors flu exposures at work. Nonsmoker. Denies possibility of being . 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 montelukast (SINGULAIR) 10 mg tablet take 1 tablet by mouth everyday at bedtime doxepin capsule 25 mg Take 1 capsule by mouth daily at bedtime. diclofenac XR (VOLTAREN-XR) 100 mg Tb24 Take 1 tablet by mouth once daily. FAMILY HISTORY Problem Relation Age of Onset other (skin Cancer) Mother on face, melanoma Stroke Maternal Grandmother Cancer Maternal Grandfather throat Hypertension Maternal Grandfather Social History Tobacco Use Smoking status: Former Packs/day: 0.50 Years: 8.00 Additional pack years: 0.00 Total pack years: 4.00 Types: Cigarettes Quit date: 08/29/2012 Years since quittin.7 Smokeless tobacco: Never Vaping Use Vaping Use: Never used Substance Use Topics Alcohol use: Yes Comment: rarely Drug use: No Review of Systems Constitutional: Positive for chills and malaise/fatigue. Negative for fever. HENT: Positive for congestion. Negative for ear pain, nosebleeds and sore throat. Respiratory: Positive for cough. Negative for shortness of breath and wheezing. Gastrointestinal: Positive for diarrhea. Negative for abdominal pain, constipation, nausea and vomiting. Musculoskeletal: Negative for neck pain. Skin: Negative for itching and rash. Objective Blood pressure 130/84, pulse 84, temperature 36.7 ?C (98.1 ?F), resp. rate 21, weight 121.2 kg (267 lb 3.2 oz), last menstrual period 04/26/2023, SpO2 98%. Physical Exam Constitutional: General: She is not in acute distress. Appearance: She is not toxic-appearing or diaphoretic. HENT: Head: Normocephalic and atraumatic. Nose: Nose normal. Eyes: General: Lids are normal. No scleral icterus. Right eye: No discharge. Left eye: No discharge. Conjunctiva/sclera: Conjunctivae normal. Pupils: Pupils are equal, round, and reactive to light. Neck: Trachea: Trachea normal. Cardiovascular: Rate and Rhythm: Normal rate and regular rhythm. Heart sounds: Normal heart sounds. Pulmonary: Effort: Pulmonary effort is normal. Breath sounds: Normal breath sounds. Musculoskeletal: Cervical back: Normal range of motion and neck supple. Lymphadenopathy: Cervical: No cervical adenopathy. Right cervical: No superficial cervical adenopathy. Left cervical: No superficial cervical adenopathy. Skin: Findings: No rash. Neurological: Mental Status: She is alert and oriented to person, place, and time. ASSESSMENT/PLAN: 1. URI, acute - ICD9: 465.9, ICD10: J06.9 - Discussed viral etiology and rationale for treatment. - Symptomatic treatment with prn analgesia - Supportive care with fluids and rest - Follow up in 3-5 days if symptoms persist or sooner if worsening of symptoms - INFLUENZA AANDB MOLECULAR (POC) [facility] Lacy [facility] History of Present illness Narrative* Kota Lacy APRN.[employer] - 05/20/2023 7:19 AM EST Subjective HPI HPI Michaelle Mays is a 43 year old female who presents today for CC of cough, congestion, fatigue, diarrhea. This started 2 days ago. Has tried otc medication for relief. Symptoms are worsened by nothing. Risk factors flu exposures at work. Nonsmoker. Denies possibility of being . 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 montelukast (SINGULAIR) 10 mg tablet take 1 tablet by mouth everyday at bedtime doxepin capsule 25 mg Take 1 capsule by mouth daily at bedtime. diclofenac XR (VOLTAREN-XR) 100 mg Tb24 Take 1 tablet by mouth once daily. FAMILY HISTORY Problem Relation Age of Onset other (skin Cancer) Mother on face, melanoma Stroke Maternal Grandmother Cancer Maternal Grandfather throat Hypertension Maternal Grandfather Social History Tobacco Use Smoking status: Former Packs/day: 0.50 Years: 8.00 Additional pack years: 0.00 Total pack years: 4.00 Types: Cigarettes Quit date: 08/29/2012 Years since quittin.7 Smokeless tobacco: Never Vaping Use Vaping Use: Never used Substance Use Topics Alcohol use: Yes Comment: rarely Drug use: No Review of Systems Constitutional: Positive for chills and malaise/fatigue. Negative for fever. HENT: Positive for congestion. Negative for ear pain, nosebleeds and sore throat. Respiratory: Positive for cough. Negative for shortness of breath and wheezing. Gastrointestinal: Positive for diarrhea. Negative for abdominal pain, constipation, nausea and vomiting. Musculoskeletal: Negative for neck pain. Skin: Negative for itching and rash. Objective Blood pressure 130/84, pulse 84, temperature 36.7 C (98.1 F), resp. rate 21, weight 121.2 kg (267 lb 3.2 oz), last menstrual period 04/26/2023, SpO2 98%. Physical Exam Constitutional: General: She is not in acute distress. Appearance: She is not toxic-appearing or diaphoretic. HENT: Head: Normocephalic and atraumatic. Nose: Nose normal. Eyes: General: Lids are normal. No scleral icterus. Right eye: No discharge. Left eye: No discharge. Conjunctiva/sclera: Conjunctivae normal. Pupils: Pupils are equal, round, and reactive to light. Neck: Trachea: Trachea normal. Cardiovascular: Rate and Rhythm: Normal rate and regular rhythm. Heart sounds: Normal heart sounds. Pulmonary: Effort: Pulmonary effort is normal. Breath sounds: Normal breath sounds. Musculoskeletal: Cervical back: Normal range of motion and neck supple. Lymphadenopathy: Cervical: No cervical adenopathy. Right cervical: No superficial cervical adenopathy. Left cervical: No superficial cervical adenopathy. Skin: Findings: No rash. Neurological: Mental Status: She is alert and oriented to person, place, and time. ASSESSMENT/PLAN: 1. URI, acute - ICD9: 465.9, ICD10: J06.9 - Discussed viral etiology and rationale for treatment. - Symptomatic treatment with prn analgesia - Supportive care with fluids and rest - Follow up in 3-5 days if symptoms persist or sooner if worsening of symptoms - INFLUENZA A&B MOLECULAR (POC) Kota Lacy APRN.[facility] documented in this encounterK[facility]24 NoteHNO ID: [id number] Author: KOTA VYAS MD Service: ? Author Type: Physician Type: Progress Notes Filed: 05/13/2023 07:36 Note Text: Michaelle is a 43 year old who presents for an annual gynecologic exam without complaints. Menses: cycles every 28 days and 3 days of flow. 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 Morbid obesity (HCC) Plantar fasciitis Primary osteoarthritis of right knee PAST SURGICAL HISTORY Procedure Laterality Date INDUCED HX 2009 LAPAROSCOPY SURG CHOLECYSTECTOMY 2013 Cholecystectomy, lap PAST SURGICAL HISTORY OF 1998 vaginal wart removal VAGINOSCOPY 2017 FAMILY HISTORY Problem Relation Age of Onset other (skin Cancer) Mother on face, melanoma Stroke Maternal Grandmother Cancer Maternal Grandfather throat Hypertension Maternal Grandfather SOCIAL HISTORY Social History Tobacco Use Smoking status: Former Packs/day: 0.50 Years: 8.00 Additional pack years: 0.00 Total pack years: 4.00 Types: Cigarettes Quit date: 08/29/2012 Years since quittin.7 Smokeless tobacco: Never Vaping Use Vaping Use: Never used Substance Use Topics Alcohol use: Yes Comment: rarely Drug use: No REVIEW OF SYSTEMS Abdomen: No abdominal pain, nausea, vomiting, diarrhea, or constipation. No bloating, early satiety, indigestion, or increased flatulence. Bladder: No dysuria, gross hematuria, urinary frequency, urinary urgency, or incontinence. Breast: No breast lumps, nipple d/c, overlying skin changes, redness or skin retraction. Allergies and current medication updated:Yes EXAM: BP 108/64 Wt 263 lb 3.7 oz (119.4kg) LMP 04/26/2023 GENERAL: pleasant, female in no apparent distress HEENT: Normocephalic, atraumatic, mucus membranes moist, and no lesions NECK: Supple, full range of motion, no adenopathy, and thyroid normal DERMATOLOGY: Normal, without lesions, non-icteric, and non-hirsute BREAST: soft, non-tender, symmetric, no dominant mass, normal nipple-areolar complex, no lymphadenopathy, and no nipple discharge CHEST: Clear to auscultation, Normal inspiratory effort, Regular rate and rhythm, and No murmurs, clicks, rubs or gallops ABDOMEN: soft, non-tender, no masses, and no hepatosplenomegaly PELVIC: external genitalia normal, normal Bartholin's glands, urethra, Springdale's glands, no vulvar lesions, no cervical lesions, physiologic discharge present, normal appearing perineal body and perianal region BIMANUAL: uterus normal size, shape and consistency, midposition, no adnexal masses, and non-tender RECTOVAGINAL: deferred. NEURO: alert and oriented x3,exam grossly non-focal EXTREMITIES: normal ASSESSMENT/PLAN: 1) Health maintenance: Pap/HPV up to date. Mammogram mammogram due September 2023. 2) Contraception: combined hormonal contraceptives. Contraceptive options reviewed and information provided. 3) STD screening: Declined STD check. 4) Follow up one year or sooner as needed Kota Vyas, [facility]02-22-2024 History of Present illness Narrative* Kota Vyas MD - 05/13/2023 7:30 AM EST Michaelle is a 43 year old who presents for an annual gynecologic exam without complaints. Menses: cycles every 28 days and 3 days of flow. 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 Morbid obesity (HCC) Plantar fasciitis Primary osteoarthritis of right knee PAST SURGICAL HISTORY Procedure Laterality Date INDUCED HX 2009 LAPAROSCOPY SURG CHOLECYSTECTOMY 2013 Cholecystectomy, lap PAST SURGICAL HISTORY OF 1998 vaginal wart removal VAGINOSCOPY 2017 FAMILY HISTORY Problem Relation Age of Onset other (skin Cancer) Mother on face, melanoma Stroke Maternal Grandmother Cancer Maternal Grandfather throat Hypertension Maternal Grandfather SOCIAL HISTORY Social History Tobacco Use Smoking status: Former Packs/day: 0.50 Years: 8.00 Additional pack years: 0.00 Total pack years: 4.00 Types: Cigarettes Quit date: 08/29/2012 Years since quittin.7 Smokeless tobacco: Never Vaping Use Vaping Use: Never used Substance Use Topics Alcohol use: Yes Comment: rarely Drug use: No REVIEW OF SYSTEMS Abdomen: No abdominal pain, nausea, vomiting, diarrhea, or constipation. No bloating, early satiety, indigestion, or increased flatulence. Bladder: No dysuria, gross hematuria, urinary frequency, urinary urgency, or incontinence. Breast: No breast lumps, nipple d/c, overlying skin changes, redness or skin retraction. Allergies and current medication updated:Yes EXAM: BP 108/64 Wt 263 lb 3.7 oz (119.4kg) LMP 04/26/2023 GENERAL: pleasant, female in no apparent distress HEENT: Normocephalic, atraumatic, mucus membranes moist, and no lesions NECK: Supple, full range of motion, no adenopathy, and thyroid normal DERMATOLOGY: Normal, without lesions, non-icteric, and non-hirsute BREAST: soft, non-tender, symmetric, no dominant mass, normal nipple-areolar complex, no lymphadenopathy, and no nipple discharge CHEST: Clear to auscultation, Normal inspiratory effort, Regular rate and rhythm, and No murmurs, clicks, rubs or gallops ABDOMEN: soft, non-tender, no masses, and no hepatosplenomegaly PELVIC: external genitalia normal, normal Bartholin's glands, urethra, [place]dale's glands, no vulvar lesions, no cervical lesions, physiologic discharge present, normal appearing perineal body and perianal region BIMANUAL: uterus normal size, shape and consistency, midposition, no adnexal masses, and non-tender RECTOVAGINAL: deferred. NEURO: alert and oriented x3,exam grossly non-focal EXTREMITIES: normal ASSESSMENT/PLAN: 1) Health maintenance: Pap/HPV up to date. Mammogram mammogram due September 2023. 2) Contraception: combined hormonal contraceptives. Contraceptive options reviewed and information provided. 3) STD screening: Declined STD check. 4) Follow up one year or sooner as needed Kota Vyas MD documented [facility]-12-[facility]24 Miscellaneous Notes* Telephone Encounter - Tahira Sy RN - 05/03/2023 9:29 AM EST [place] 02/05/23 Pharmacy requested refill Requested Prescriptions Pending Prescriptions Disp Refills montelukast (SINGULAIR) 10 mg tablet [Pharmacy Med Name: MONTELUKAST SOD 10 MG TABLET] 90 tablet 3 Sig: take 1 tablet by mouth everyday at bedtime RX INSTRUCTIONS: Patient aware RX will be sent to pharmacy. No need to notify patient. Tahira Sy RN documented in this encounterK[facility]01-08-2024 NoteHNO ID: [id number] Author: MAXIMUS WYATT APRN.[facility] Service: ? Author Type: Nurse Practitioner Type: Progress Notes Filed: 03/29/2023 08:03 Note Text: CC: Patient presents with: Head Congestion: cough, headache x 4 days, + home covid x this am HPI: Michaelle Mays is a 42 year old female who presents to the office with complaint of head congestion and cough, nonproductive for 5 days. Symptoms are improving Associated symptoms includes cough. Denies fever, nausea, vomiting , and diarrhea. Treatments tried include nothing so far. with no relief of symptoms. Sick contacts: unknown. History of asthma, frequent episodes of bronchitis, chronic bronchitis, bronchiectasis or COPD: No Smoker: No Seasonal/environmental allergies: No The ROS is otherwise negative. The patient's pmh, medications, allergies, and past visits are reviewed. PHYSICAL EXAM: BP 132/80 Pulse 92 Temp 36.8 ?C (98.2 ?F) Resp 16 Wt 119.7 kg (264 lb) LMP 04/26/2022 SpO2 99% BMI 42.43 kg/m? General appearance: alert, cooperative, pleasant, in no acute distress Head: Normocephalic Eyes: EOM's intact, conjunctiva pink and moist, no icterus, sclera white, non-injected Ears: Right ear: External ear/canal- Normal, TM - clear with good landmarks. Left ear: External ear/canal- Normal, TM - clear with good landmarks Oropharynx:moist without lesions, No erythema, exudates or tonsillar hypertrophy. Heart: Negative. RRR without obvious murmur, gallop, or rubs. No ectopy. 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 montelukast (SINGULAIR) 10 mg tablet Take 1 tablet by mouth daily at bedtime. diclofenac XR (VOLTAREN-XR) 100 mg Tb24 Take 1 tablet by mouth once daily. ALTAVERA, 28, 0.15-0.03 mg per tab TAKE 1 TABLET BY MOUTH EVERY DAY FAMILY HISTORY Problem Relation Age of Onset other (skin Cancer) Mother on face, melanoma Stroke Maternal Grandmother Cancer Maternal Grandfather throat Hypertension Maternal Grandfather Social History Tobacco Use Smoking status: Former Packs/day: 0.50 Years: 8.00 Additional pack years: 0.00 Total pack years: 4.00 Types: Cigarettes Quit date: 08/29/2012 Years since quittin.5 Smokeless tobacco: Never Vaping Use Vaping Use: Never used Substance Use Topics Alcohol use: Yes Comment: rarely Drug use: No ASSESSMENT/PLAN: 1. URI, acute - ICD9: 465.9, ICD10: J06.9 - COVID AND INFLUENZA A/B AND RSV NAAT, ROUTINE Does not want antiviral. Potential red flag symptoms discussed with the patient. Reviewed appropriate action plan to take if red flag symptoms occur. Patient agreeable to treatment plan. Maximus Wyatt APRN.[facility]01-02-2024 NoteHNO ID: [id number] Author: Esme Feliz APRN.[employer] Service: ? Author Type: Nurse Practitioner Type: Progress Notes Filed: 03/23/2023 7:37 AM Note Text: Subjective The history is provided by the patient. No stucco laborer was used. HPI Michaelle Mays is a 42 year old female who presents today for CC of fatigue, cough an ddiarrhea for one day. She was exposed to covid a week ago. She has not used any medication for treatment. Undecided if positive covid if wants paxlovid. Did not do a home covid test BP 112/70 Pulse 86 Temp 36.7 ?C (98 ?F) Resp 16 Wt 121.6 kg (268 lb) LMP 04/26/2022 SpO2 97% BMI 43.07 kg/m? 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 Negative for chills and fever. HENT: Positive for congestion and sinus pain. Negative for ear pain and sore throat. Respiratory: Positive for cough. Negative for sputum production, shortness of breath and wheezing. Cardiovascular: Negative for chest pain. Gastrointestinal: Positive for diarrhea. Negative for abdominal pain, nausea and vomiting. Musculoskeletal: Negative for myalgias. Neurological: Negative for headaches. Objective Physical Exam Vitals and nursing note reviewed. Constitutional: Appearance: Normal appearance. HENT: Head: Normocephalic and atraumatic. Right Ear: Tympanic membrane, ear canal and external ear normal. Left Ear: Tympanic membrane, ear canal and external ear normal. Nose: Rhinorrhea present. No mucosal edema or congestion. Right Sinus: No maxillary sinus tenderness or frontal sinus tenderness. Left Sinus: No maxillary sinus tenderness or frontal sinus tenderness. Mouth/Throat: Pharynx: Uvula midline. No oropharyngeal exudate or posterior oropharyngeal erythema. Cardiovascular: Rate and Rhythm: Normal rate and regular rhythm. Heart sounds: Normal heart sounds. Pulmonary: Effort: Pulmonary effort is normal. Breath sounds: Normal breath sounds. Abdominal: General: Bowel sounds are normal. There is no abdominal bruit. Palpations: Abdomen is not rigid. There is no mass or pulsatile mass. Tenderness: There is no abdominal tenderness. There is no guarding or rebound. Negative signs include Cisneros's sign and McBurney's sign. Lymphadenopathy: Head: Right side of head: No submental, submandibular or tonsillar adenopathy. Left side of head: No submental, submandibular or tonsillar adenopathy. Cervical: No cervical adenopathy. Skin: General: Skin is warm and dry. Neurological: Mental Status: She is alert and oriented to person, place, and time. Psychiatric: Mood and Affect: Affect normal. ASSESSMENT/PLAN: 1. URI, acute - ICD9: 465.9, ICD10: J06.9 (primary diagnosis) 2. Viral illness - ICD9: 079.99, ICD10: B34.9 - Discussed viral etiology and rationale for treatment. - Symptomatic treatment with prn analgesia - Supportive care with fluids and rest Home isolation Testing ordered Comfort measures discussed - see patient instructions. When to seek higher level of care Notified in 12-24 hours with results, available on [employer] Considering paxlovid if positive. Will need rx sent in, patient given information on after visit about paxlovid. Diagnosis and treatment plan were discussed and questions were answered to the patient's satisfaction. Pt acknowledged understanding of concepts and follow up plan. Specific signs and symptoms that would indicate the need for higher level of care were discussed in detail warranting prompt ER evaluation. Esme Feliz, NEDRA.[facility]12-21-2023 Miscellaneous Notes* Addendum Note - Cheng Mcdaniel MD - 03/11/2023 11:38 AM ESTAddended by: CHENG MCDANIEL on: 03/11/2023 11:38 AM Modules accepted: Orders documented in this encounterK[facility]12-21-2023 History of Present illness Narrative* Cheng Mcdaniel MD - 03/11/2023 11:12 AM EST Chief Complaint Patient presents with: right knee injury: Patient twisted knee this am. Will need at least work excuse for today. HPI Michaelle Mays is a 42 year old female who presents here today for Above Complaints. Patient states that she twisted her knee getting up from breakfast this morning. Tried to catch falling chair and felt pain in the front and back of her knee and has developed swelling without bruising or redness. Has limited flexion to about 90 degrees and extension to about 170 degrees. Patient has been limping around this morning and has had hard time using stairs. Does not have crutches or cane to help with ambulation. Not treating with anything OTC for pain. Did ice it for about 20 minutesthis morning. Admits to feeling like knee wants to crack when walking. Denies locking up, catching,or giving out. Past medical history, appointments, medications, allergies reviewed. 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 Morbid obesity (HCC) Plantar fasciitis Primary osteoarthritis of right knee Previous Surgical History PAST SURGICAL HISTORY Procedure Laterality Date INDUCED HX 2009 LAPAROSCOPY SURG CHOLECYSTECTOMY 2013 Cholecystectomy, lap PAST SURGICAL HISTORY OF 1998 vaginal wart removal VAGINOSCOPY 2017 Family History FAMILY HISTORY Problem Relation Age of Onset other (skin Cancer) Mother on face, melanoma Stroke Maternal Grandmother Cancer Maternal Grandfather throat Hypertension Maternal Grandfather Patient Allergies ALLERGIES Allergen Reactions Haroldo Inhibitors Angioedema History of angioedema Bupropion/Diethylpr* Rash Wellbutrin Penicillins augmentin Current Medications Current Outpatient Medications on File Prior to Visit Medication Sig doxepin capsule 25 mg Take 1 capsule by mouth daily at bedtime. montelukast (SINGULAIR) 10 mg tablet Take 1 tablet by mouth daily at bedtime. diclofenac XR (VOLTAREN-XR) 100 mg Tb24 Take 1 tablet by mouth once daily. ALTAVERA, 28, 0.15-0.03 mg per tab TAKE 1 TABLET BY MOUTH EVERY DAY No current facility-administered medications on file prior to visit. Social History Social History Tobacco Use Smoking status: Former Packs/day: 0.50 Years: 8.00 Additional pack years: 0.00 Total pack years: 4.00 Types: Cigarettes Quit date: 08/29/2012 Years since quittin.5 Smokeless tobacco: Never Vaping Use Vaping Use: Never used Substance Use Topics Alcohol use: Yes Comment: rarely Drug use: No Review of Symptoms REVIEW OF SYSTEMS See HPI EXAM: BP 124/72 Pulse 85 Resp 16 Wt 117.7 kg (259 lb 6.4 oz) LMP 04/26/2022 SpO2 99% BMI 41.69 kg/m General Appearance: Well appearing, alert, in no acute distress, well-hydrated, well nourished.. Skin: Skin color, texture, turgor normal, no suspicious rashes or lesions. KNEE:Location: Right Redness: No. Warmth: No. Crepitus: No. Effusion: Yes. Mild Joint line tenderness: No. Lateral tenderness: No. Medial tenderness: No. Drawer sign negative: Yes Medial or lateral laxity: No. Luis's sign: No. Health Maintenance List Depression Assessment Never done Influenza Vaccine(1) due on 11/20/2022 Covid-19 Vaccine( - 2022- season) due on 11/20/2022 DTaP,Tdap,Td Vaccine(2 - Td or Tdap) due on 12/06/2022 Pap Testing due on 04/29/2023 Mammogram Screening due on 10/03/2023 HPV Testing due on 04/26/2024 Hepatitis C Screening Completed HIV Screening Completed HPV Vaccine Aged Out ASSESSMENT/PLAN: 1. Acute pain of right knee - ICD9: 719.46, ICD10: M25.561 Suspect strain/sprain. Discussed RICE therapy, continued use of voltaren for pain as well as tylenol PRN. To use crutches for ambulation and may bear some weight as tolerated. Given letter for work to allow her to return tomorrow and sit with leg propped up while working. Call if not improving in 1-2 weeks. - CRUTCHES - PAIR - ALUMINUM Cheng Mcdaniel MD documented in this encounterK[facility]12-05-2023 History of Present illness Narrative* Lora March APRN.PITCHING COACH - 02/23/2023 11:08 AM EST SUBJECTIVE: Michaelle Mays is a 42 year old female. Who presents today with fatigue sore throat and sneezing. Her symptoms started yesterday. She took a home covid test this am and it was negative. She has not had a fever. She has been exposed to others at work who have covid. She has not take any medication today. She will need a work note. 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 Morbid obesity (HCC) Plantar fasciitis Primary osteoarthritis of right knee FAMILY HISTORY Problem Relation Age of Onset other (skin Cancer) Mother on face, melanoma Stroke Maternal Grandmother Cancer Maternal Grandfather throat Hypertension Maternal Grandfather Social History Tobacco Use Smoking status: Former Packs/day: 0.50 Years: 8.00 Additional pack years: 0.00 Total pack years: 4.00 Types: Cigarettes Quit date: 08/29/2012 Years since quittin.4 Smokeless tobacco: Never Vaping Use Vaping Use: Never used Substance Use Topics Alcohol use: Yes Comment: rarely Drug use: No ALLERGIES Allergen Reactions Haroldo Inhibitors Angioedema History of angioedema Bupropion/Diethylpr* Rash Wellbutrin Penicillins augmentin Current Outpatient Medications Medication Sig Dispense Refill doxepin capsule 25 mg Take 1 capsule by mouth daily at bedtime. 90 capsule 3 montelukast (SINGULAIR) 10 mg tablet Take 1 tablet by mouth daily at bedtime. 90 tablet 0 diclofenac XR (VOLTAREN-XR) 100 mg Tb24 Take 1 tablet by mouth once daily. 30 tablet 6 ALTAVERA, 28, 0.15-0.03 mg per tab TAKE 1 TABLET BY MOUTH EVERY DAY 84 tablet 4 No current facility-administered medications for this visit. OBJECTIVE: BP 118/74 Pulse 78 Temp 36.9 C (98.4 F) (Tympanic) Resp 16 Wt 119.2 kg (262 lb 12.8 oz) LMP 04/26/2022 SpO2 98% BMI 42.24 kg/m ROS all other systems reviewed and are negative Physical Exam Constitutional: Well developed, well nourished, NAD, A&O X3. ENT: Head is atraumatic, airway patent, mucosal membranes moist. Neck: supple with no palpable lymph nodes Cardiac: Heart tone normal rate and rhythm Respiratory: Breath sounds clear : no CVA tenderness MS: no swelling, tenderness or deformity in upper or lower extremities, no midline tenderness in cervical, thoracic or lumbar spine. Neuro: strength sensation and coordination intact. CN II-XII grossly intact, Skin: warm and dry with out rash, lesion or ecchymosis on exposed skin Psych: alert appropriate, speech clear It was a pleasure to take care of Michaelle Mays today. She was offered strep testing and she has declined. I have encouraged her to recheck a covid test in 24-48 hours as it may have been to soon to test since her symptoms have started less than 12 hours ago. She may take motrin and tylenol for discomfort or fever. We have also discussed otc medications for the symptoms. Patient will follow up with family physician. They may return to the Urgent Care or go to the ER for worsening symptoms or concerns. Patient verbalized understanding of plan of care and is in agreement. ASSESSMENT/PLAN: 1. Viral illness - ICD9: 079.99, ICD10: B34.9 Lora March APRN.PITCHING COACH documented in this encounterK[facility]09-13-2023 History of Present illness Narrative* Micah Pete MD - 12/02/2022 5:42 PM EDT Patient presents with: Sinus Problem: sinus pressure x 6 days, cough, sneezing, fatigue x today HPI: Feeling sick for 7 days with URI symptoms, much worse today. Her had a second illness this week too and feeling better after a couple days. Positive symptoms: Cough, Sinus pressure, sneezing, Fatigue, Fever, Chills, Body Aches, Malaise, Headache, Negative symptoms: Shortness of breath, Wheezing, Nausea, Vomiting, Diarrhea, OTC: none. Home COVID test negative today. MEDICATIONS: Current Outpatient Medications Medication Sig montelukast (SINGULAIR) 10 mg tablet Take 1 tablet by mouth daily at bedtime. doxepin capsule 50 mg Take 1 capsule by mouth daily at bedtime. diclofenac XR (VOLTAREN-XR) 100 mg Tb24 Take 1 tablet by mouth once daily. ALTAVERA, 28, 0.15-0.03 mg per tab TAKE 1 TABLET BY MOUTH EVERY DAY No current facility-administered medications for this visit. ALLERGIES: ALLERGIES Allergen Reactions Haroldo Inhibitors Angioedema History of angioedema Bupropion/Diethylpr* Rash Wellbutrin Penicillins augmentin VITALS: BP 122/82 Pulse 82 Temp 36.8 C (98.3 F) Resp 16 Wt 115.2 kg (254 lb) LMP 04/26/2022 SpO2 99% BMI 40.82 kg/m PHYSICAL EXAM: GEN: mildly ill appearing HEENT: PERRL, EOMI, conjunctiva clear Ears: left canal with cerumen. TMs without erythema, bulge, or effusion Sinuses: non-tender frontal sinus, non-tender maxillary sinuses Throat: moist mucous membranes, mild erythema, no exudate Neck: supple, no thyromegaly, no lymphadenopathy HEART: regular rate and rhythm, no murmurs LUNGS: clear to auscultation, no wheezes or crackles, no increased WOB ASSESSMENT/PLAN: 1. URI, acute - ICD9: 465.9, ICD10: J06.9 - suspect viral URI. Declines COVID PCR test. - Discussed supportive care treatment with rest, cold medicine, and analgesia. Work note provided. Micah Pete MD documented in this encounterK[facility]09-13-2023 Miscellaneous Notes* Telephone Encounter - Patti Aguilar RN - 12/02/2022 9:36 AM EDT [facility]-02/02/22 Annual appointment scheduled 02/05/23 Patient phones requesting refills as follows: Requested Prescriptions Pending Prescriptions Disp Refills montelukast (SINGULAIR) 10 mg tablet 90 tablet 0 Sig: Take 1 tablet by mouth daily at bedtime. Please review and advise. Patti Aguilar RN documented in this encounterKet[facility]09-11-2023 Miscellaneous Notes* Telephone Encounter - Luisana Dewitt - 11/30/2022 11:12 AM EDT [place]:02/02/22 Next OV: 02/05/23 Patient phones requesting refills as follows: Requested Prescriptions Pending Prescriptions Disp Refills doxepin capsule 50 mg 30 capsule 1 Sig: Take 1 capsule by mouth daily at bedtime. Please review and advise. Luisana Dewitt documented in this encounterKettering [facility]08-28-2023 History of Present illness Narrative* Kota Lacy APRN.PITCHING COACH - 11/16/2022 12:27 PM EDT Subjective HPI HPI Michaelle Mays is a 42 year old female who presents today for CC of fatigue. This started 1 day ago. Has tried nothing for relief. Symptoms are worsened by nothing. Thinks just worked too hard yesterday. Denies uri symptoms, cp/sob, st. Needs work note today. 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 Morbid obesity (HCC) Plantar fasciitis Primary osteoarthritis of right knee PAST SURGICAL HISTORY Procedure Laterality Date INDUCED HX 2009 LAPAROSCOPY SURG CHOLECYSTECTOMY 2013 Cholecystectomy, lap PAST SURGICAL HISTORY OF 1998 vaginal wart removal VAGINOSCOPY 2016 ALLERGIES Haroldo Inhibitors, Bupropion/Diethylpropion, and Penicillins MEDICATIONS montelukast (SINGULAIR) 10 mg tablet TAKE 1 TABLET BY MOUTH EVERYDAY AT BEDTIME ALTAVERA, 28, 0.15-0.03 mg per tab TAKE 1 TABLET BY MOUTH EVERY DAY diclofenac XR (VOLTAREN-XR) 100 mg Tb24 TAKE 1 TABLET BY MOUTH EVERY DAY doxepin capsule 50 mg Take 1 capsule by mouth daily at bedtime. FAMILY HISTORY Problem Relation Age of Onset other (skin Cancer) Mother on face, melanoma Stroke Maternal Grandmother Cancer Maternal Grandfather throat Hypertension Maternal Grandfather Social History Tobacco Use Smoking status: Former Packs/day: 0.50 Years: 8.00 Additional pack years: 0.00 Total pack years: 4.00 Types: Cigarettes Quit date: 08/29/2012 Years since quittin.2 Smokeless tobacco: Never Vaping Use Vaping Use: Never used Substance Use Topics Alcohol use: Yes Comment: rarely Drug use: No Review of Systems Constitutional: Positive for malaise/fatigue. Negative for fever. HENT: Negative for congestion, ear pain, nosebleeds and sore throat. Respiratory: Negative for cough, shortness of breath and wheezing. Musculoskeletal: Negative for neck pain. Objective Blood pressure 138/78, pulse 112, temperature 37 C (98.6 F), resp. rate 18, weight 115.7 kg (255 lb), last menstrual period 04/26/2022, SpO2 97 %. Physical Exam Constitutional: General: She is not in acute distress. Appearance: She is not toxic-appearing or diaphoretic. HENT: Head: Normocephalic and atraumatic. Neck: Thyroid: No thyroid mass, thyromegaly or thyroid tenderness. Cardiovascular: Rate and Rhythm: Normal rate and regular rhythm. Heart sounds: Normal heart sounds, S1 normal and S2 normal. Pulmonary: Effort: Pulmonary effort is normal. Breath sounds: Normal breath sounds. Lymphadenopathy: Cervical: No cervical adenopathy. Right cervical: No superficial cervical adenopathy. Left cervical: No superficial cervical adenopathy. Neurological: Mental Status: She is alert and oriented to person, place, and time. Gait: Gait is intact. ASSESSMENT/PLAN: 1. Fatigue, unspecified type - ICD9: 780.79, ICD10: R53.83 Needs work note today, not desiring workup Push fluids F/u with pcp if s/s persists Kota Lacy APRN.PITCHING COACH documented in this encounterKettering [facility]08-17-2023 Miscellaneous Notes* Telephone Encounter - Luisana Dewitt - 11/05/2022 9:54 AM EDT [place]: 02/02/22 Pharmacy phones requesting refills as follows: Requested Prescriptions Pending Prescriptions Disp Refills montelukast (SINGULAIR) 10 mg tablet [Pharmacy Med Name: MONTELUKAST SOD 10 MG TABLET] 90 tablet 0 Sig: TAKE 1 TABLET BY MOUTH EVERYDAY AT BEDTIME Please review and advise. Luisana Dewitt documented in this encounterKettering [facility]07-26-2023 History of Present illness Narrative* Treva Reynolds MD - 10/14/2022 4:08 PM EDT Procedure: Left cerumen impaction Preop diagnosis: Cerumen impaction. It cannot be removed without magnification and multiple instrumentations requiring physician skills. Postoperative diagnosis: same CERUMEN REMOVAL: Cerumen was removed under otomicroscopy from the Left ear with instrumentation. The cerumen was more backed up crust was quite adherent to the medial ear canal touching the left tympanic membrane. After removal, patient had small abrasion her ear canal from removing the cerumen. Assessment and plan: 42-year-old female with left cerumen impaction which was removed. Patient had small amount of bleeding due to the cerumen being very adherent and encrusted onto the ear canal skin. I will start her on ofloxacin eardrop. I will see her back on as-needed basis. Treva Reynolds MD documented in this encounterKettering [facility]07-14-2023 History of Present illness Narrative* Alondra Swartz, RT(R) - 10/02/2022 2:30 PM EDT Radiology Service Progress Note PATIENT NAME: Michaelle Mays DATE OF SERVICE: October 02, 2022 TIME: 2:20 PM PATIENT IDENTITY VERIFICATION COMPLETED USING TWO (2) IDENTIFIERS: Name and Date of confirmedby patient verbally. FALL SCREENING: Has the patient had 2 falls in the last year or 1 fall with injury or currently using an Ambulatory Assistive Device (Walker, Cane, Wheelchair, Crutches, etc.)? No PATIENT GENDER DATA: Female. status: : No status: NO. PATIENT RELEVANT IMPLANT DATA REVIEWED: Not Applicable RADIOLOGY DEPARTMENT: Mammography PERIPHERAL IV DATA: Not applicable SIGNED BY: RT Henrry(R) October 02, 2022 2:20 PM documented in this encounterKettering [facility]06-19-2023 History of Present illness Narrative* Jazz Wright APRN.PITCHING COACH - 09/07/2022 2:03 PM EDT 09/07/2022 Patient presents with: Back Pain: Low left back pain, pulled Wednesday evening Derm Problem: Wants left hand rechecked SUBJECTIVE: This is a 42 year old that is here today for Above Complaints. ONSET: Wednesday LOCATION: low back- midline to left side DURATION: intermittent CHARACTERISTICS: soreness AGGRAVATING FEATURES: bending over ALLEVIATING FEATURES: heat and icy patch RADIATION: kind down left butt check. Denies past/present injury or surgery, extremity numbness, tingling, weakness, saddle anaesthesia, urinary/bowel incontinence or inability Left hand: started with blister to left palm last week. Not using anything to area. 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 No current facility-administered medications for this visit. Medications and allergies reviewed by this provider. SOCIAL HISTORY Social History Tobacco Use Smoking status: Former Packs/day: 0.50 Years: 8.00 Pack years: 4.00 Types: Cigarettes Quit date: 08/29/2012 Years since quittin.0 Smokeless tobacco: Never Vaping Use Vaping Use: Never used Substance Use Topics Alcohol use: Yes Comment: rarely Drug use: No REVIEW OF SYSTEMS All other reviewed and negative other than HPI. OBJECTIVE: BP 116/72 Pulse 78 Resp 18 Wt 115.6 kg (254 lb 12.8 oz) LMP 04/26/2022 SpO2 99% BMI 40.95 kg/m . Vital signs reviewed by this provider. APPEARANCE Well appearing, alert, in no acute distress, well-hydrated, well nourished. BACK: Normal exam, good flexion and extension, negative SLR test. No TTP EXTREMITIES Extremities normal, No deformities, No skin discoloration, and No edema NEURO Awake, alert and oriented x 3, Reflexes symmetrical, Normal gait, No involuntary motions., and negative findings: muscle tone normal, muscle strength normal, reflexes normal and symmetric, plantar response downgoing bilaterally SKIN left palm under left index finger with 3 small intact blisters. No surrounding erythema, excessive warmth or drainage DEPRESSION ASSESSMENT Never done MAMMOGRAM due on 09/29/2022 DTAP,TDAP,TD(2 - Td or Tdap) due on 12/06/2022 PAP TESTING due on 04/29/2023 HPV TESTING due on 04/26/2024 INFLUENZA Completed HEPATITIS C SCREENING Completed HIV SCREENING Completed COVID-19 VACCINE Completed ASSESSMENT/PLAN: 1. Acute left-sided low back pain without sciatica - ICD9: 724.2, ICD10: M54.50 (primary diagnosis) - no red flag symptoms or exam findings - red flag symptoms discussed, verbalizes understanding - continue OTC measures and gentle stretches. Heat for 15 minutes at a time- discussed not to sleepon heating pad, verbalizes understanding - follow-up if symptoms fail to improve 2. Blister of left hand, initial encounter - ICD9: 914.2, ICD10: S60.522A - consider palmoplantar eczema vs contact dermatitis - no red flag symptoms or exam findings - red flag symptoms discussed, verbalizes understanding - reminded patient not to open up blisters. Protect and try to keep blisters intact - TRIAMCINOLONE ACETONIDE 0.1 % TOPICAL CREAM- do not put on area if blisters open up - follow-up if fails to improve to ER with red flag symptoms [employer], [employer]ATION ARCHITECT.PITCHING COACH Prescription instructions reviewed with patient as applicable. Patient advised if symptoms do not improve or if symptoms worsen sooner, to contact their primary care physician. Potential red flag symptoms discussed with the patient. Reviewed appropriate action plan to take if red flag symptoms occur. Patient agreeable to treatment plan. I spent a total of 25 minutes on the date of the service which included preparing to see the patient, [id number] patient care, completing clinical documentation, obtaining and/or reviewing separately obtained history, performing a medically appropriate examination, counseling and educating the pat ient/family/caregiver, and ordering medications, tests, or procedures. documented in this encounterKettering [facility]05-10-2023 History of Present illness Narrative* Jazz Wright APRN.CNP - 07/29/2022 8:07 AM EDT 07/29/2022 Patient presents with: Follow Up: Skin infection on left inner hand SUBJECTIVE: This is a 42 year old that is here today for Above Complaints. Seen in Urgent Care on 07/22/2022 for blister to left palm. Was treated with keflex and Bactroban. Returned to office on 07/27/2022 for follow-up. Small amount of improvement. Keflex extended and bactrim added on. Has been taking and tolerating antibiotics as prescribed without side effects. Has not been soaking. Has noticed great improvement. 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 Feels she can return to work. 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 sulfamethoxazole-trimethoprim (BACTRIM DS) 800-160 mg per tablet Take 1 tablet by mouth twice dailyfor 10 days. mupirocin (BACTROBAN) 2 % ointment Apply to affected area three times daily for 7 days. ALTAVERA, 28, 0.15-0.03 mg per tab TAKE 1 TABLET BY MOUTH EVERY DAY diclofenac XR (VOLTAREN-XR) 100 mg Tb24 TAKE 1 TABLET BY MOUTH EVERY DAY doxepin capsule 50 mg Take 1 capsule by mouth daily at bedtime. montelukast (SINGULAIR) 10 mg tablet TAKE 1 TABLET BY MOUTH EVERYDAY AT BEDTIME No current facility-administered medications for this visit. Medications and allergies reviewed by this provider. SOCIAL HISTORY Social History Tobacco Use Smoking status: Former Packs/day: 0.50 Years: 8.00 Pack years: 4.00 Types: Cigarettes Quit date: 08/29/2012 Years since quittin.9 Smokeless tobacco: Never Vaping Use Vaping Use: Never used Substance Use Topics Alcohol use: Yes Comment: rarely Drug use: No REVIEW OF SYSTEMS All other reviewed and negative other than HPI. OBJECTIVE: BP 116/66 Pulse 84 Resp 16 Wt 115.3 kg (254 lb 3.2 oz) LMP 04/26/2022 SpO2 98% BMI 40.85 kg/m . Vital signs reviewed by this provider. APPEARANCE Well appearing, alert, in no acute distress, well-hydrated, well nourished. LEFT HAND: erythema to left pal under index finger has resolved. One large and one small blister intact but smaller. No active drainage, excessive warmth, tenderness or red streaking. 2+ radial pulsewith cap refill WNL. DEPRESSION ASSESSMENT Never done MAMMOGRAM due on 09/29/2022 DTAP,TDAP,TD(2 - Td or Tdap) due on 12/06/2022 PAP TESTING due on 04/29/2023 HPV TESTING due on 04/26/2024 INFLUENZA Completed HEPATITIS C SCREENING Completed HIV SCREENING Completed COVID-19 VACCINE Completed ASSESSMENT/PLAN: 1. Skin infection - ICD9: 686.9, ICD10: L08.9 (primary diagnosis) - improved - no red flag symptoms or exam findings - red flag symptoms discussed, verbalizes understanding - Continue treatment with keflex and bactrim - may return to work without restrictions - follow-up if fails to completely resolve to ER with red flag symptoms 2. Blister of skin - ICD9: 919.2, ICD10: T14.8XXA - discussed to keep blister intact - keep blister protected - plan as above Jazz Wright APRN.CNP Prescription instructions reviewed with patient as applicable. Patient advised if symptoms do not improve or if symptoms worsen sooner, to contact their primary care physician. Potential red flag symptoms discussed with the patient. Reviewed appropriate action plan to take if red flag symptoms occur. Patient agreeable to treatment plan. I spent a total of 20 minutes on the date of the service which included preparing to see the patient, [id number] patient care, completing clinical documentation, obtaining and/or reviewing separately obtained history, performing a medically appropriate examination, and counseling and educating the patient/family/caregiver. documented in this encounterK[facility]05-08-2023 Instructions* Patient Instructions* Jazz Wright APRN.CNP - 07/27/2022 8:08 AM EDT Follow-up Wednesday documented in this encounterKettering [facility]05-08-2023 History of Present illness Narrative* Jazz Wright APRN.CNP - 07/27/2022 7:54 AM EDT 07/27/2022 Patient presents with: Derm Problem: Urgent care follow up for skin infection, not getting any better SUBJECTIVE: This is a 42 year old that is here today for Above Complaints. Seen in Urgent Care on 07/22/2022 for blister to left hand. Started on keflex and given Bactroban to apply. Taking and tolerating keflex without side effects. Still using mupricion ointment. Has not been soaking. Reports doesn't seem to be improving. Patient reports started at work. 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 Reports she tried to pop it with a needle. Denies injury to area, fevers, chills, purulent drainage, increasing redness, excessive warmth or red streaking. 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 mupirocin (BACTROBAN) 2 % ointment Apply to affected area three times daily for 7 days. ALTAVERA, 28, 0.15-0.03 mg per tab TAKE 1 TABLET BY MOUTH EVERY DAY diclofenac XR (VOLTAREN-XR) 100 mg Tb24 TAKE 1 TABLET BY MOUTH EVERY DAY doxepin capsule 50 mg Take 1 capsule by mouth daily at bedtime. montelukast (SINGULAIR) 10 mg tablet TAKE 1 TABLET BY MOUTH EVERYDAY AT BEDTIME No current facility-administered medications for this visit. Medications and allergies reviewed by this provider. SOCIAL HISTORY Social History Tobacco Use Smoking status: Former Packs/day: 0.50 Years: 8.00 Pack years: 4.00 Types: Cigarettes Quit date: 08/29/2012 Years since quittin.9 Smokeless tobacco: Never Vaping Use Vaping Use: Never used Substance Use Topics Alcohol use: Yes Comment: rarely Drug use: No REVIEW OF SYSTEMS All other reviewed and negative other than HPI. OBJECTIVE: BP 120/78 Pulse 92 Temp 37.4 C (99.3 F) Resp 16 Wt 114.7 kg (252 lb 12.8 oz) LMP 04/26/2022 SpO2 98% BMI 40.63 kg/m . Vital signs reviewed by this provider. APPEARANCE Well appearing, alert, in no acute distress, well-hydrated, well nourished. LEFT HAND: Left palm under index finger with two blisters- one small which appears to be blood blister other larger - slightly less than 25 cent piece. Surrounding erythema without excessive warmth or red streaking. No active drainage. 2+ radial pulse with cap refill WNL. Patient does have picture on her phone and appears some improved since starting the keflex DEPRESSION ASSESSMENT Never done MAMMOGRAM due on 09/29/2022 DTAP,TDAP,TD(2 - Td or Tdap) due on 12/06/2022 PAP TESTING due on 04/29/2023 HPV TESTING due on 04/26/2024 INFLUENZA Completed HEPATITIS C SCREENING Completed HIV SCREENING Completed COVID-19 VACCINE Completed ASSESSMENT/PLAN: 1. Skin infection - ICD9: 686.9, ICD10: L08.9 - Begin treatment with bactrim - continue keflex for 5 more days - no red flag symptoms or exam findings - red flag symptoms discussed, verbalizes understanding - No lymphangetic streaking, this was defined for patient to watch for and to seek medical care immediately if appears - Follow up for recheck in two days - CEPHALEXIN 500 MG CAPSULE - SULFAMETHOXAZOLE 800 MG-TRIMETHOPRIM 160 MG TABLET - soak hand in warm water twice a day - do not pop blisters - keep covered - letter provided to be off work until office check on Wednesday - follow-up Wednesday for recheck, to ER with red flag symptoms Jazz Wright APRN.CNP Prescription instructions reviewed with patient as applicable. Patient advised if symptoms do not improve or if symptoms worsen sooner, to contact their primary care physician. Potential red flag symptoms discussed with the patient. Reviewed appropriate action plan to take if red flag symptoms occur. Patient agreeable to treatment plan. I spent a total of 25 minutes on the date of the service which included preparing to see the patient, [id number] patient care, completing clinical documentation, obtaining and/or reviewing separately obtained history, performing a medically appropriate examination, counseling and educating the pat ient/family/caregiver, and ordering medications, tests, or procedures. documented in this encounterK[facility]05-03-2023 Miscellaneous Notes* Telephone Encounter - Eulalia Skinner APRN.CNP - 07/22/2022 4:15 PM EDT Speak with patient. In review of Epic, patient has taken Keflex in 2019. Reached out and discussed with patient. Speak with [facility], and they are aware and will now fill for patient. * Telephone Encounter - Sunshine Jewell RN - 07/22/2022 4:07 PM EDT Patient calls to report that [facility] won't dispense the cephalexin as prescribed d/t allergy toPCN. Patient reports that allergy is hives and all over body swelling. Patient asking for another antibiotic to be sent to [facility]. Please call patient back at [phone] once addressed. Sunshine Jewell RN documented in this encounterKettering Health [facility]04-21-2023 Miscellaneous Notes* Telephone Encounter - Nina Austin MA - 07/10/2022 1:30 PM EDT Work excuse faxed to number listed below to the attention of Candie. Nina Austin MA * Telephone Encounter - Kota Lacy APRN.CNP - 07/10/2022 1:26 PM EDT Please fax, if not feeling better needs to be seen again. * Telephone Encounter - Kiera Wilson LPN - 07/10/2022 12:54 PM EDT Patient calling, states she was seen in on 07/08 for a stomach virus. Her work will not allow herto come back without a letter saying ok to return. Patient is asking if letter can be faxed to [phone] Att: Candie. Please advise. documented in this encounterKettering Health [facility]02-21-2023 History of Present illness Narrative* Ingrid Ponce LPN - 2022 9:53 AM EST Patient presents for EKG per Dr Johns. Denies any problems at this time. Tolerated procedure well. Ingrid Ponce LPN documented in this encounterKettering Health [facility]02-15-2023 History of Present illness Narrative* Micah Jo MD - 05/06/2022 9:22 AM EST Michaelle Mays is a 41 year old who presents for her annual gynecologic exam. 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 Morbid obesity (HCC) Plantar fasciitis Primary osteoarthritis of right knee PAST SURGICAL HISTORY Procedure Laterality Date INDUCED HX 2009 LAPAROSCOPY SURG CHOLECYSTECTOMY 2013 Cholecystectomy, lap PAST SURGICAL HISTORY OF 1998 vaginal wart removal VAGINOSCOPY 2016 FAMILY HISTORY Problem Relation Age of Onset other (skin Cancer) Mother on face, melanoma Stroke Maternal Grandmother Cancer Maternal Grandfather throat Hypertension Maternal Grandfather Social History Tobacco Use Smoking status: Former Packs/day: 0.50 Years: 8.00 Pack years: 4.00 Types: Cigarettes Quit date: 08/29/2012 Years since quittin.6 Smokeless tobacco: Never Vaping Use Vaping Use: Never used Substance Use Topics Alcohol use: Yes Comment: rarely Drug use: No REVIEW OF SYSTEMS Bladder: No burning with urination, blood in urine or incontinence Bowel: No blood in stool, pain with BM, tarry stool, persistent diarrhea or constipation Breast: No breast lumps, nipple d/c, overlying skin changes, redness or skin retraction EXAM: pleasant,well developed,well nourished,white female in no apparent distress HEENT: WNL NECK: Full range of motion,no adenopathy,thyroid normal DERMATOLOGY:Without lesions, Non-icteric, non-hirsute BREAST: soft, non-tender, symmetric, no dominant mass, normal nipple-areolar complex, no lymphadenopathy, and no nipple discharge CHEST: Normal inspiratory effort CARDIAC:Regular rate, rhythm ABDOMEN: Soft,non-tender,no hernia,No masses, hepatosplenomegaly,No lymphadenopathy PELVIC: external genitalia normal, normal Bartholin's glands, urethra, [place]'s glands, no vulvar lesions, no cervical lesions, normal discharge, well estrogenized, good vaginal support, vault clean with normal discharge, normal appearing perineal body and perianal region BIMANUAL: no cervical motion tenderness, no adnexal masses, and no pelvic masses RECTAL: deferred. NEURO: alert and oriented x3,exam grossly non-focal EXTREMITIES: Warm,No cyanosis, clubbing,No edema,nontender ASSESSMENT: 1) Normal annual exam. 2) Ocella 3) 4) PLAN: 1) Pap done 2023 HPV 2) SBE reviewed, Mammogram ordered yes 3) Nutrition, exercise and routine health maintenance exams reviewed 4) 5) Micah Jo MD documented in this encounterKettering Health [facility]02-02-2023 History of Present illness Narrative* Jerzy Clay RT(R) - 04/23/2022 9:10 AM EST Radiology Service Progress Note PATIENT NAME: Michaelle Mays DATE OF SERVICE: April 23, 2022 TIME: 9:07 AM PATIENT IDENTITY VERIFICATION COMPLETED USING TWO (2) IDENTIFIERS: Name and Date of confirmedby patient verbally. FALL SCREENING: Has the patient had 2 falls in the last year or 1 fall with injury or currently using an Ambulatory Assistive Device (Walker, Cane, Wheelchair, Crutches, etc.)? No PATIENT GENDER DATA: Female. status: : No status: NO. PATIENT RELEVANT IMPLANT DATA REVIEWED: Yes RADIOLOGY DEPARTMENT: General X-ray: Exam(s) Completed: Lower Extremity X- Ray(s): Knee, AP / Lat / Tunne / Merchant Right and Wt. Bearing PERIPHERAL IV DATA: Not applicable SIGNED BY: RT Val(R) April 23, 2022 9:07 AM documented in this encounterKettering Health [facility]ble12-16-2022 History of Present illness Narrative* Eulalia Skinner APRN.PITCHING COACH - 03/06/2022 1:29 PM EST This note was created using NoteWriter. Subjective Michaelle Mays is a 41 year old female. 41 year old female with PMH presents for neck pain. Acute onset yesterday. Right side of upper neck Has used back and muscle Aleve this morning. Endorses similar occurrence in the past, and this feels similair. Denies fever or chills. Denies numbness or tingling Denies direct blow or injury to neck Denies history of IV drug usage, bowel or bladder, unilateral weakness. The history is provided by the patient. No stucco laborer was used. Neck Pain This is a recurrent problem. The current episode started yesterday. The problem occurs constantly. The problem has been unchanged. The pain is associated with an unknown factor. The pain is present in the right side and anterior neck. Quality: sharp. The pain is at a severity of 9/10. The pain is severe. The symptoms are aggravated by twisting, bending and position. The pain is Same all the time.Stiffness is present All day. Pertinent negatives include no chest pain, fever, headaches, numbness, paresis, syncope, tingling, visual change or weakness. Treatments tried: see HPI. The treatment provided mild relief. 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 diclofenac XR (VOLTAREN-XR) 100 mg Tb24 Take 1 tablet by mouth once daily. montelukast (SINGULAIR) 10 mg tablet TAKE 1 TABLET BY MOUTH EVERYDAY AT BEDTIME levonorgestrel-ethinyl estradiol (KURVELO, 28,) 0.15-0.03 mg per tab Take 1 tablet by mouth once daily. predniSONE (DELTASONE) 10 mg tablet Take 6 tabs for 3 days, then 4 tabs for 3 days, then 2 tabs for3 days then 1 tab for 3 days with food. cyclobenzaprine (FLEXERIL) 10 mg tablet Take 1 tablet by mouth three times daily as needed for muscle spasm. FAMILY HISTORY Problem Relation Age of Onset other (skin Cancer) Mother on face, melanoma Stroke Maternal Grandmother Cancer Maternal Grandfather throat Hypertension Maternal Grandfather Social History Tobacco Use Smoking status: Former Packs/day: 0.50 Years: 8.00 Pack years: 4.00 Types: Cigarettes Quit date: 08/29/2012 Years since quittin.5 Smokeless tobacco: Never Vaping Use Vaping Use: Never used Substance Use Topics Alcohol use: Yes Comment: rarely Drug use: No Review of Systems Constitutional: Negative for activity change, appetite change, chills and fever. Eyes: Negative for pain, discharge and itching. Respiratory: Negative for apnea, cough, choking and chest tightness. Cardiovascular: Negative for chest pain, palpitations, leg swelling and syncope. Gastrointestinal: Negative for abdominal pain, diarrhea, nausea and vomiting. Musculoskeletal: Positive for neck pain. Negative for arthralgias and back pain. Skin: Negative for color change, pallor, rash and wound. Allergic/Immunologic: Negative for environmental allergies, food allergies and immunocompromised state. Neurological: Negative for tingling, weakness, numbness and headaches. Hematological: Negative for adenopathy. Does not bruise/bleed easily. Psychiatric/Behavioral: Negative for agitation and behavioral problems. Objective BP 126/66 Pulse 86 Temp 36.8 C (98.3 F) Resp 16 Wt 107.1 kg (236 lb 3.2 oz) LMP 03/01/2022 SpO2 98% BMI 37.96 kg/m Physical Exam Vitals and nursing note reviewed. Constitutional: General: She is not in acute distress. Appearance: Normal appearance. She is normal weight. She is not ill-appearing, toxic-appearing or diaphoretic. HENT: Head: Normocephalic and atraumatic. Right Ear: Ear canal and external ear normal. Left Ear: Ear canal and external ear normal. Nose: Nose normal. No congestion or rhinorrhea. Mouth/Throat: Mouth: Mucous membranes are moist. Pharynx: No oropharyngeal exudate or posterior oropharyngeal erythema. Eyes: General: Right eye: No discharge. Left eye: No discharge. Extraocular Movements: Extraocular movements intact. Conjunctiva/sclera: Conjunctivae normal. Pupils: Pupils are equal, round, and reactive to light. Cardiovascular: Rate and Rhythm: Normal rate and regular rhythm. Pulses: Normal pulses. Heart sounds: Normal heart sounds. No murmur heard. No friction rub. Pulmonary: Effort: Pulmonary effort is normal. No respiratory distress. Breath sounds: Normal breath sounds. No stridor. No wheezing, rhonchi or rales. Chest: Chest wall: No tenderness. Abdominal: General: Abdomen is flat. There is no distension. Palpations: Abdomen is soft. There is no mass. Tenderness: There is no abdominal tenderness. There is no right CVA tenderness, left CVA tenderness, guarding or rebound. Hernia: No hernia is present. Musculoskeletal: General: No swelling, tenderness, deformity or signs of injury. Normal range of motion. Cervical back: Normal range of motion and neck supple. No rigidity. Right lower leg: No edema. Left lower leg: No edema. Comments: No midline cervical, thoracic, or lumbar TTP. Right cervical paraspinal muscle tenderness and tightness 5/5 strength upper and lower Ambulatory Lymphadenopathy: Cervical: No cervical adenopathy. Skin: General: Skin is warm and dry. Capillary Refill: Capillary refill takes less than 2 seconds. Coloration: Skin is not jaundiced or pale. Findings: No bruising, erythema, lesion or rash. Neurological: General: No focal deficit present. Mental Status: She is alert and oriented to person, place, and time. Cranial Nerves: No cranial nerve deficit. Sensory: No sensory deficit. Motor: No weakness. Coordination: Coordination normal. Gait: Gait normal. Psychiatric: Mood and Affect: Mood normal. Behavior: Behavior normal. Thought Content: Thought content normal. Judgment: Judgment normal. Assessment and Plan ASSESSMENT/PLAN: 1. Strain of neck muscle, initial encounter - ICD9: 847.0, ICD10: S16.1XXA Since yesterday No red flags No trauma or injury History of same in past RX Flexeril and Prednisone Discussed red flags Work note Follow up with PCP Eulalia Skinner APRN.PITCHING COACH documented in this encounterKettering Health [facility]11-14-2022 History of Present illness Narrative* Cele Caro - 02/02/2022 10:36 AM EST LVM for patient to return call to schedule ANNUAL FOLLOW UP FOR 01/2023 * Veronique Johns MD - 02/02/2022 8:58 AM EST VIRTUAL VISIT PROGRESS NOTE This is a virtual visit using Strap video visit. It required patient-provider interaction for themedical decision making as documented below. HPI February 02, 2022 Michaelle Mays presents for VIRTUAL VISIT follow up. no hives since last seen. 1 or 2 hives at weather change Taking doxepin and singulair. Tried to get EKG- they had scheduled it but they told she had to get it at [place] and was notable to do it. No illness since last seen. Seeing ENT for left hearing loss. Currently with cracking and popping. Would have pain in ear. Blocked and decreased hearing. Patient ROS reviewed and updated February 02, 2022. 08/08/21 - Virtual visit. Michaelle Mays is a 41 year old female here today for a follow up. Patient reports doing well. No hives at all since last seen. no swelling. 1 minimal episode of hives. around ankles in the fall. lasted for a couple days and only 5 of them. Using doxepin and singulair. no concerning cough. Had COVID at early year. minimal symptoms and only had sinus symptoms. No other illnesses. History from Previous Encounters: 04/26/20 - Virtual visit. Michaelle Mays is a 39 year old female here today for a follow up. The patient reports that she has been quite healthy since her last visit. She now rarely develops hives, and when she does, she usually only notices five. They occur around her ankles and feet. She recalls having had one hive around her heel last week. Patient trends to have them more often in the winter. Patient still takes Doxepin and Singulair with great control. She states that she has not experienced much coughing nor SOB. 04/26/19 - Michaelle Mays is a 38 year old female here today for follow up. Patient reports she has been well since last encounter. Her hives have been controlled on doxepin 75mg and singulair 10mg , she continues to have intermittent hives and swelling on her ankles, feet, and hands about once a month or less. (had done extremely well on doxepin, singulair in addition to l evocetirizine and famotidine) Last episode was last week, 1-2 hives on her hand that resolved with benadryl. Her cough has been controlled, she had two illnesses in the last 10 months. 09/21/18 - Michaelle Mays is a 38 year old female here today for follow up. Patient reports she intermittently has hive flares. Two months ago, her hives flared for 3 days. She had another flare up one month ago for 3-4 days. Her hives linger for a few days. Prior to these flares, she did not have a flare for 4 months. She has not noticed association with NSAIDs or food. She uses doxepin 75mg daily, Singulair daily, levocetirizine 5mg and pepcid twice a day with symptom control. She denies coughing and allergic rhinitis symptoms. ACT = 25 06/01/18 - Michaelle Mays is a 38 year old female here today for follow up. Pt reports hive sx after medication change from doxepin 10 mg two tablets once a days to doxepin 25mg once a day. Denies angioedema. Pt says she had no hive sx when she was taking two tablets of doxepin 10mg.Pt says she has had no breathing, cold/URI, coughing, and wheezing sx. Notes some shortness of breath. 03/30/18 - Michaelle Mays is a 37 year old female here today for follow up regarding urticaria andangioedema. ACT = 23. Currently taking Pepcid BID, levocetirizine BID and montelukast one tablet once daily. Pt reports intermittent breakthrough sx of hives, reports that she required prednisone course 3-4 times in the past year for sx. Reports that individual lesions will last less than 24 hours. Reports rare episodes of scaring associated with larger lesions. Pt reports 2 episodes of breakthrough facial swelling since previous encounter and one episode of bilateral foot and finger swelling. Extremity swelling associated with illness, no other exacerbations associated with illness. Pt is unsure if she has taken any NSAIDs during exacerbations. Pt did not notice skipping medication dose with breakthrough sx, notes sx are increased during winter season, but does not notice sx with exposure to cold air. Pt reports approximately 5-7 times since November. Pt did not notice correlation with Aleve use. Takes Aleve 2-3 times per month for sx of knee pain. Pt reports that she has not required her albuterol inhaler since previous encounter. April 02, 2017 - Michaelle Mays presents for follow up. ACT- 25 had moved an dhad been doing well. no urticaria or angioedema. occasional urticaria. Stopped all medications completely. 1-4 weeks later with angioedema. Lip and tongue with swelling off antihistamines. had gone to ER- had had steroids, antihistamines, epipenephrine. had improved while there in ER. had started at work with tongue swelling. severe swelling. Restarted all medications. pepcid once a day. claritin once a day levoceterizine and singulair with once a day. no sedation. occasional hives on ankles and < 24 hours. November 06, 2015 - Michaelle Negron presents for follow up. wedding in 1 month. had had hives 10/25. had been driving home from work- right back of throat with sore throat.developed hives next week. resolved on own. was having laryngitis symptoms. laryngitis symptoms resolved in 24 hours. no new changes. no illness. takes aleve intermittently. none recently. had couple episodes. feels it may be worse with stress and heat. worse with those symptoms. resolved in 24 hours. will add claritin. July 25, 2015 - Michaelle Negron presents for follow up. hives occurring April and now. resolved for hives will last for 48 hours. Current hives started yesterday- right thigh and ankle. will last couple days. in between will resolve. occasional on forehead. no illness recently. no new foods or medicaitons. daily singulair, levocetirizine bid and pepcid 20 mg bid. hives will occur intermittent. less than last summer. no NSAIDS recently. April 05, 2015 - Michaelle Negron presents for follow up. Novemeber with tongue swelling. No illness. Midnight had awoke with tongue swelling. 3 am with persistent symptoms. Had had hives at that time. Gets intermittent hives. Will come and go. Resolved after period of time. Has had intermittent hives. no dermatographism. No worse in cold air. Week prior to ER- aleve 2-3 days. no new foods, no illness. Had been taking singulair in January. Not on pepcid in January. December 20, 2014 - Michaelle Negron presents for follow up. Last Wednesday had had reaction. Wednesday had been sleeping- thought sore throat. Nothing different that evening. next day with slight swelling. had taken singulair and levoceterizine that evening. next am took prednisone with improvement. No ER visit. Had been every 2 weeks previously. Has been 10 months since previous. 6 ducks/ 6 turkeys. None since March. March 30, 2014 - Michaelle Negron presents for follow up. Last Wednesday with swelling of tongue. took zyrtec with improvement. Occurred in am 5 am. Recurred later that day then ER. No illness or change in foods night prior. Wednesday night- 2 days prior had taken naproxen.There has been other times that has taken naproxen since last previous. Had not been using pepcid. January 11, 2014 Consultation requested by Duane Stauffer MD for an opinion regarding angioedema.My final recommendations will be communicated back to the requesting physician by way of shared Medical record or letter to requesting physician via US mail. The patient is a 33 year old female patient who complains of intermittent episodes of angioedema. Developed swelling of tongue started September. After moving into boyfriend home. Awoke in am with righttongue swelling. Took benadryl with improevement. Every time it has occurred will worsen. Has had 4-5 times. Can be facial swelling, tongue, and throat swelling. No difficulty talking or swallowing. Jan 02- in pm, had eaten ham sandwich, macaroni salad, corn puffs (had eaten next day without difficulty). after dinner had had right tongue swelling. took benadryl 12.5 mg without improvement. 2 am with worsening of symptoms. No previous symptoms. No hives. No food association. One occasion had occurred at work. Had started at work. Had not eaten anything new. Does not changediet. Can not determine any causes. [place]. 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 Feeding them- cracked corn, lang mash. Would spend weekends prior without symptoms. Moved into boyiend;s home 1 week prior. No new medications. Takes Naprosyn (last took it last night). no symptoms last night. Takes Aleve intermittently. unsure if exacerbates symptoms. Works at [employer]. NO FMH of angioedema. No liver or thyroid disease. Review of patient's allergies indicates: Bupropion/Diethylpr* Comment:wellbrutin--rash Penicillins Comment:augmentin- 10 years ago. had had hives and generalized angioedema. Had finished the medications by 2 days then had symptoms. Lasted for 24 hours. no fevers, or achiness. No AR. Nasal polyps: The patient has never had nasal polyps. Asthma: The patient has no history of asthma. Sinusitis: The patient does not suffer from frequent sinopulmonary infections. Latex Allergy: DENIES Contact Dermatitis/Eczema: has a history Food Allergies/Reactions: DENIES Hymenoptera Reaction: denies CAT scan: DENIES Environmental history:older home. Built in . [place]- 22 ducks; 8-10 turkeys Pets in the home: 2 cats Scott: Njii[place]ho-yuxe carpeting Air conditioning: No air conditioning Heating: Forced hot air Basement: Dry basement Dust mite controls: Dust mite controls are not in place. 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 Morbid obesity (HCC) Plantar fasciitis Primary osteoarthritis of right knee PAST SURGICAL HISTORY Procedure Laterality Date INDUCED HX 2009 LAPAROSCOPY SURG CHOLECYSTECTOMY 2013 Cholecystectomy, lap PAST SURGICAL HISTORY OF 1998 vaginal wart removal VAGINOSCOPY 2017 Social History Tobacco Use Smoking status: Former Packs/day: 0.50 Years: 8.00 Pack years: 4.00 Types: Cigarettes Quit date: 08/29/2012 Years since quittin.4 Smokeless tobacco: Never Vaping Use Vaping Use: Never used Substance Use Topics Alcohol use: Yes Comment: rarely Drug use: No Review Of Systems February 02, 2022 GENERAL: No weight loss, malaise or fevers. HEENT: Negative for frequent or significant headaches, No changes in hearing or vision, no nose bleeds or other nasal problems NECK: Negative for lumps, goiter, pain and significant neck swelling RESPIRATORY: Negative for SOB, wheezing, cough, apnea CARDIOVASCULAR: Negative for chest pain, leg swelling or palpitations. GASTROINTESTINAL: No nausea, vomiting, or diarrhea SKIN: see above Physical Video Exam General: alert and appropriate, in no distress, well-hydrated, well nourished and happy, smiling, interactive Skin: no rash noted Head: normocephalic, no abnormality or lesion noted Eyes: no injection and visual acuity is grossly normal Ears: external ears normal, no mastoid tenderness Nose: external nose normal without rhinorrhea Respiratory: breathing non-labored and no grunting/flaring/retractions Chest: equal chest rise with normal respiratory effort Clinical Course and Results Component Latest Ref Rng & Units 04/26/2019 09/26/2020 WBC 3.70 - 11.00 k/uL 7.94 7.70 RBC 3.90 - 5.20 m/uL 4.04 4.33 Hemoglobin 11.5 - 15.5 g/dL 13.0 13.8 Hematocrit 36.0 - 46.0 % 40.4 43.0 MCV 80.0 - 100.0 fL 100.0 99.3 MCH 26.0 - 34.0 pG 32.2 31.9 MCHC 30.5 - 36.0 g/dL 32.2 32.1 RDW-CV 11.5 - 15.0 % 13.7 13.2 Platelet Count 150 - 400 k/uL 304 342 MPV 9.0 - 12.7 fL 11.7 11.4 Neut% % 56.4 Abs Neut (ANC) 1.45 - 7.50 k/uL 4.46 Lymph% % 35.0 Abs Lymph 1.00 - 4.00 k/uL 2.78 Bamberg% % 5.7 Abs Bamberg <0.87 k/uL 0.45 Eosin% % 2.1 Abs Eosin <0.46 k/uL 0.17 Baso% % 0.8 Abs Baso <0.11 k/uL 0.06 Nucleated Reds 0 /100 WBC 0.0 Absolute nRBC <0.01 k/uL <0.01 <0.01 Diff Type Auto Diff Protein, Total 6.3 - 8.0 g/dL 6.6 6.6 Albumin 3.9 - 4.9 g/dL 3.8 (L) 3.7 (L) Calcium 8.5 - 10.2 mg/dL 8.8 8.7 Bilirubin, Total 0.2 - 1.3 mg/dL 0.2 0.2 Alkaline Phosphatase 34 - 123 U/L 64 79 AST 13 - 35 U/L 20 21 Glucose 74 - 99 mg/dL 88 87 BUN 7 - 21 mg/dL 15 13 Creatinine 0.58 - 0.96 mg/dL 0.96 0.91 Sodium 136 - 144 mmol/L 141 142 Potassium 3.7 - 5.1 mmol/L 4.3 4.2 Chloride 97 - 105 mmol/L 105 106 (H) CO2 22 - 30 mmol/L 25 27 Anion Gap 9 - 18 mmol/L 11 9 ALT 7 - 38 U/L 20 22 eGFR- >60 >60 eGFR-All Other Races . >60 >60 Assessment and Plan 1. Angioedema (primary encounter diagnosis) 2. Urticaria. Patient only developed recent urticaria Comment: no obvious cause- chronic idiopathic Plan: Repeat screening serology while on doxepin Continue singulair 10mg Decrease doxepin to 50 mg levocetirizine 5mg as needed- none Given course of oral steroids for emergency use. Patient has epipen with instruction on use. Avoid NSAIDS (has taken naprosyn without symptoms). Avoid aleve. may use tylenol Avoid HAROLDO I in future with tendency to develop angioedema obtain cbc, cmp. ekg 3. 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 Will have her call us in 2-3 months if doing well and we will decrease to Doxepin 25 mg I spent a total of 30 minutes on the date of the service which included preparing to see the patient, [id number] patient care, completing clinical documentation and ordering medications, tests, or procedures. Veronique Johns MD documented in this encounterK[facility] History of Present illness Narrative* Merlyn Medel PA-C - 12/02/2021 3:10 PM EDT This note was created using [employer]. Subjective Michaelle Mays is a 41 year old female. HPI Patient presents with nausea and diarrhea over the past 12 hours. She states the diarrhea has actually improved. She had 3-4 bouts earlier this morning. No blood in stool. No recent travel. She did not eat out. Her is also having some diarrhea. No cough or congestion. No fever. No sore throat. She denies abdominal pain. No recent antibiotics. No vomiting. Review of Systems HENT: Negative. Respiratory: Negative. Cardiovascular: Negative. Gastrointestinal: Positive for diarrhea and nausea. Negative for abdominal pain and vomiting. Endocrine: Negative. Genitourinary: Negative. Musculoskeletal: Negative. Skin: Negative. All other systems reviewed and are negative. 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 30 tablet 6 doxepin capsule 75 mg Take 1 capsule by mouth daily at bedtime. 30 capsule 11 montelukast (SINGULAIR) 10 mg tablet TAKE 1 TABLET BY MOUTH EVERYDAY AT BEDTIME 90 tablet 3 levonorgestrel-ethinyl estradiol (KURVELO, 28,) 0.15-0.03 mg per tab Take 1 tablet by mouth once daily. 84 tablet 4 No current facility-administered medications for this visit. PAST SURGICAL HISTORY Procedure Laterality Date INDUCED HX 2009 LAPAROSCOPY SURG CHOLECYSTECTOMY 2013 Cholecystectomy, lap PAST SURGICAL HISTORY OF 1998 vaginal wart removal VAGINOSCOPY 2017 FAMILY HISTORY Problem Relation Age of Onset other (skin Cancer) Mother on face, melanoma Stroke Maternal Grandmother Cancer Maternal Grandfather throat Hypertension Maternal Grandfather Social History Tobacco Use Smoking status: Former Packs/day: 0.50 Years: 8.00 Pack years: 4.00 Types: Cigarettes Quit date: 08/29/2012 Years since quittin.2 Smokeless tobacco: Never Vaping Use Vaping Use: Never used Substance Use Topics Alcohol use: Yes Comment: rarely Drug use: No Objective BP 128/72 Pulse 68 Temp 36.6 C (97.8 F) Resp 16 Wt 106.6 kg (235 lb) LMP 08/17/2021 SpO2 99% BMI 37.77 kg/m Physical Exam Vitals reviewed. Constitutional: Appearance: Normal appearance. HENT: Head: Normocephalic and atraumatic. Mouth/Throat: Mouth: Mucous membranes are moist. Pharynx: Oropharynx is clear. Cardiovascular: Rate and Rhythm: Normal rate and regular rhythm. Heart sounds: Normal heart sounds. Pulmonary: Effort: Pulmonary effort is normal. Breath sounds: Normal breath sounds. Abdominal: General: Abdomen is flat. Bowel sounds are normal. Palpations: Abdomen is soft. Tenderness: There is no abdominal tenderness. There is no guarding or rebound. Musculoskeletal: Cervical back: Neck supple. Skin: General: Skin is warm and dry. Neurological: General: No focal deficit present. Mental Status: She is alert. Assessment and Plan ASSESSMENT/PLAN: 1. Diarrhea, unspecified type - ICD9: 787.91, ICD10: R19.7 Seems to be improving. Given work note. Discussed bland diet. Discussed red flags to be seen again.Patient agreeable. Merlyn Medel PA-C documented in this encounterK[facility]-2022 Miscellaneous Notes* Letter - Mammography Coordinator - 09/29/2021 10:37 AM EDT September 29, 2021 PID: [id number] Michaelle Mays [address] [place] [address] Dear Ms. Mays, We are pleased to inform you that the results of your recent breast imaging exam on 09/29/2021 are normal. Early detection of cancer is very important. We also understand recommendations regarding breast cancer screening are controversial. Please discuss with your primary care provider which strategy is best for you and whether a mammogram is right for you. Your imaging studies and report will be [facility] at [facility] as part of your permanent medical record and are available for your continuing care. Thank you for allowing us to help in meeting your health care needs. Sincerely, Dr. Zaragoza Interpreting Radiologist [facility] (Normal over 40) documented in this encounterK[facility]07-11-2022 History of Present illness Narrative* RT Henrry(R) - 09/29/2021 7:30 AM EDT Radiology Service Progress Note PATIENT NAME: Michaelle Mays DATE OF SERVICE: September 29, 2021 TIME: 7:29 AM PATIENT IDENTITY VERIFICATION COMPLETED USING TWO (2) IDENTIFIERS: Name and Date of confirmedby patient verbally. FALL SCREENING: Has the patient had 2 falls in the last year or 1 fall with injury or currently using an Ambulatory Assistive Device (Walker, Cane, Wheelchair, Crutches, etc.)? No PATIENT GENDER DATA: Female. status: : No status: NO. PATIENT RELEVANT IMPLANT DATA REVIEWED: Not Applicable RADIOLOGY DEPARTMENT: Mammography PERIPHERAL IV DATA: Not applicable SIGNED BY: RT Henrry(Katya) September 29, 2021 7:29 AM documented in this encounterK[facility]06-13-2022 Miscellaneous Notes* Telephone Encounter - Aye Luis LPN - 09/01/2021 11:37 AM EDT There is a current RX on file with this pharmacy Closed encopunter request documented in this encounterK[facility]06-07-2022 Instructions* Patient Instructions* Esme Feliz APRN.ALMAS - 08/26/2021 12:07 PM EDT How is diarrhea treated? Tips for managing diarrhea without medication: Drink liquids frequently. Increase the amount to two to three liters or quarts daily as tolerated, or try sipping liquids in small amounts throughout the day. Choose diluted, pulpless fruit juices, broths, oral rehydration drinks, or sodas (without caffeine). Chicken broth (without the fat), tea with honey, and sports drinks also are good choices. Instead of drinking liquids with your meals, drink liquids between meals. Try these low-fiber foods: potatoes; rice; noodles; ripe bananas; applesauce; smooth peanut butter;white bread; chicken or turkey without the skin; lean ground beef; fish; yogurt; or cottage cheese. Avoid the following: greasy, fatty, or fried foods; raw vegetables and fruits; strong spices; and whole-grain cereals and breads. Limit food or beverages with caffeine, such as chocolate, coffee, strong tea, and some sodas. If you have cramping with diarrhea, avoid foods and beverages that cause gas, such as beans, cabbage, beer, and carbonated beverages. Diarrheal illness may cause temporary lactose (dairy) intolerance, so avoid these foods if they aremaking diarrhea worse. Stay away from spicy greasy or fatty foods for a week To ER for worsening symptoms, increased pain, fevers, vomiting, decreased urine output, blood in her urine blood in her stools or dark tarry stools. documented in this encounterK[facility]06-07-2022 History of Present illness Narrative* Esme Feliz APRN.CNP - 08/26/2021 12:03 PM EDT Subjective The history is provided by the patient. No stucco laborer was used. CORTEZ Mays is a 41 year old female who presents today for CC of mild cramping nausea and diarrhea for one day. She has had no vomiting. Described x 3 episodes since last night, loose brown, not watery. She has not used any medications or treatment. Denies any blood in stool, recent antibiotic use, abdominal surgeries, recent exposure to farm or zoo animals. She declines covid testing. 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 HENT: Negative for congestion, ear pain, sinus pain and sore throat. Respiratory: Negative for cough, sputum production, shortness of breath and wheezing. Cardiovascular: Negative for chest pain. Gastrointestinal: Positive for abdominal pain, diarrhea and nausea. Negative for vomiting. Musculoskeletal: Negative for myalgias. Neurological: Negative for headaches. Objective Physical Exam Vitals and nursing note reviewed. Constitutional: Appearance: Normal appearance. Cardiovascular: Rate and Rhythm: Normal rate and regular rhythm. Heart sounds: Normal heart sounds. Pulmonary: Effort: Pulmonary effort is normal. Breath sounds: Normal breath sounds. Abdominal: General: Bowel sounds are normal. There is no abdominal bruit. Palpations: Abdomen is not rigid. There is no mass or pulsatile mass. Tenderness: There is no abdominal tenderness. There is no right CVA tenderness, left CVA tenderness, guarding or rebound. Negative signs include Cisneros's sign and McBurney's sign. Comments: There is not pain out of proportion to abdominal exam, no pulsatile mass or abdominal bruit noted. No bilious vomiting or high pitched bowel sounds. Neurological: Mental Status: She is alert and oriented to person, place, and time. Psychiatric: Mood and Affect: Affect normal. ASSESSMENT/PLAN: Appears to be viral, abdomen is not toxic 1. Nausea - ICD9: 787.02, ICD10: R11.0 (primary diagnosis 2. Diarrhea, unspecified type - ICD9: 787.91, ICD10: R19.7 3. Abdominal cramping - ICD9: 789.00, ICD10: R10.9 Comfort measures discussed, increase fluid If no resolution or worsening symptoms to ED or follow up with PCP Diagnosis and treatment plan were discussed and questions were answered to the patient's satisfaction. Pt acknowledged understanding of concepts and follow up plan. Specific signs and symptoms that would indicate the need for higher level of care were discussed indetail warranting prompt ER evaluation. Esme Feliz APRN.ALMAS documented in this encounterK[facility]05-20-2022 Instructions* Patient Instructions* Veronique Johns MD - 08/08/2021 3:57 PM EDT What Are the Symptoms of Bronchiectasis? Symptoms of bronchiectasis can take months or years to develop, and gradually become worse. The twoprimary symptoms are a cough and daily production of mucus (sputum). Other symptoms typically include: Coughing up yellow or green mucus daily Shortness of breath that gets worse during flare-ups Fatigue, feeling run-down or tired Fevers and/or chills Wheezing or whistling sound while you breathe Coughing up blood or mucus mixed with blood, a condition called hemoptysis Chest pain from increased effort to breathe Clubbing, or the thickening of the skin under nails How Is Bronchiectasis Diagnosed? Bronchiectasis is an under-diagnosed condition. If it is suspected, your doctor will first require a detailed family history and blood tests to determine whether you may have an underlying condition that could cause bronchiectasis. These blood tests can also tell your doctor if you have low levels of infection- fighting blood cells. Because it is a lung disease, your physician will also want to test your lung function. They will start by listening to your lungs to check for blockages and abnormalities. Lung function tests can determine how well your lungs are working. Additionally, a sputum culture can tell your doctor if bacteria is in your lungs. Once they rule out other causes for your symptoms, the most common way to diagnose bronchiectasis is with a chest X-ray or CT scan. Both tests create detailed images of your lungs, heart or airways and give you doctor a full picture of your situation. In severe cases when bronchiectasis isn't responding to treatment, doctors may recommend a bronchoscopy. This flexible, narrow tube is inserted into the airways to help find blockages and sources of infection. When to See Your Doctor It is important for patients who have been diagnosed with bronchiectasis to see their doctor for periodic checkups. See questions to ask your doctor. How Is Bronchiectasis Treated? The goal of bronchiectasis treatment is to prevent infections and flare-ups. This is done with a combination of medication, hydration and chest physical therapy. Oxygen therapy may be recommended to raise low blood oxygen levels. Surgery may be recommended in extreme situations where the bronchiectasis is isolated to a section of lung or there is excessive bleeding. Antibiotics are the most common treatment for bronchiectasis. Oral antibiotics are suggested for most cases, but harder to treat infections may require intravenous (IV) antibiotics. Macrolides are a specific type of antibiotics that not only kill certain types of bacteria but also reduce inflammation in the bronchi. Though they may be beneficial for some people, they are only used in the most severe situations because they have extreme side-effects. Mucus Thinning Medication may be prescribed to help bronchiectasis' patients cough up mucus. These medications are often given through a nebulizer, where it is mixed with hypertonic saline solution, turned into a mist, and inhaled deep into the lungs. They are commonly used along with a decongestant. Airway Clearance Devices: Some patients exhale into a hand-held device to help break up mucus. Someof these devices are Oscillating Positive Expiratory Pressure (PEP), Intrapulmonary Percussive Ventilation (IPV) and Postural Drainage. Chest Physical Therapy (CPT), or chest physiotherapy, is a popular respiratory therapist technique that involves clapping on the chest in a certain way that helps loosen mucus from the lungs so it can be expelled. Electronic chest clappers or vests are now available to make it easier to perform CPT at home. Some patients may be eligible for Clinical Trials. You can search for clinical trials on the Lung Association's Clinical Trial Registry or ClinicalTrials.gov. How to Manage Bronchiectasis Bronchiectasis is a long-term condition with symptoms that need to be managed over many years. Patients should work closely with a doctor to determine healthy habits that will limit flare-ups. Some suggestions may be: Quit smoking and avoid secondhand smoke. Maintain a healthy diet, low in sodium, added sugars, saturated fats and refined grains. Stay hydrated, drinking plenty of water to help prevent mucus build-up. documented in this encounterK[facility] Nurse Note* Patti Aguilar RN - 08/08/2021 3:30 PM EDT Attempted to contact patient on 08/08/2021 Result: left message on patient's voicemail reminding of virtual visit appointment documented in this encounterK[facility]22 History of Present illness Narrative* Veronique Johns MD - 08/08/2021 11:59 AM EDT VIRTUAL VISIT PROGRESS NOTE This is a virtual visit using Strap video visit. It required patient-provider interaction for themedical decision making as documented below. HPI 08/08/21 - Virtual visit. Michaelle Mays is a 41 year old female here today for a follow up. Patient reports doing well. No hives at all since last seen. no swelling. 1 minimal episode of hives. around ankles in the fall. lasted for a couple days and only 5 of them. Using doxepin and singulair. no concerning cough. Had COVID at early year. minimal symptoms and only had sinus symptoms. No other illnesses. History from Previous Encounters: 04/26/20 - Virtual visit. Michaelle Mays is a 39 year old female here today for a follow up. The patient reports that she has been quite healthy since her last visit. She now rarely develops hives, and when she does, she usually only notices five. They occur around her ankles and feet. She recalls having had one hive around her heel last week. Patient trends to have them more often in the winter. Patient still takes Doxepin and Singulair with great control. She states that she has not experienced much coughing nor SOB. 04/26/19 - Michaelle Mays is a 38 year old female here today for follow up. Patient reports she has been well since last encounter. Her hives have been controlled on doxepin 75mg and singulair 10mg , she continues to have intermittent hives and swelling on her ankles, feet, and hands about once a month or less. (had done extremely well on doxepin, singulair in addition to l evocetirizine and famotidine) Last episode was last week, 1-2 hives on her hand that resolved with benadryl. Her cough has been controlled, she had two illnesses in the last 10 months. 09/21/18 - Michaelle Mays is a 38 year old female here today for follow up. Patient reports she intermittently has hive flares. Two months ago, her hives flared for 3 days. She had another flare up one month ago for 3-4 days. Her hives linger for a few days. Prior to these flares, she did not have a flare for 4 months. She has not noticed association with NSAIDs or food. She uses doxepin 75mg daily, Singulair daily, levocetirizine 5mg and pepcid twice a day with symptom control. She denies coughing and allergic rhinitis symptoms. ACT = 25 06/01/18 - Michaelle Mays is a 38 year old female here today for follow up. Pt reports hive sx after medication change from doxepin 10 mg two tablets once a days to doxepin 25mg once a day. Denies angioedema. Pt says she had no hive sx when she was taking two tablets of doxepin 10mg.Pt says she has had no breathing, cold/URI, coughing, and wheezing sx. Notes some shortness of breath. 03/30/18 - Michaelle Mays is a 37 year old female here today for follow up regarding urticaria andangioedema. ACT = 23. Currently taking Pepcid BID, levocetirizine BID and montelukast one tablet once daily. Pt reports intermittent breakthrough sx of hives, reports that she required prednisone course 3-4 times in the past year for sx. Reports that individual lesions will last less than 24 hours. Reports rare episodes of scaring associated with larger lesions. Pt reports 2 episodes of breakthrough facial swelling since previous encounter and one episode of bilateral foot and finger swelling. Extremity swelling associated with illness, no other exacerbations associated with illness. Pt is unsure if she has taken any NSAIDs during exacerbations. Pt did not notice skipping medication dose with breakthrough sx, notes sx are increased during winter season, but does not notice sx with exposure to cold air. Pt reports approximately 5-7 times since November. Pt did not notice correlation with Aleve use. Takes Aleve 2-3 times per month for sx of knee pain. Pt reports that she has not required her albuterol inhaler since previous encounter. April 02, 2017 - Michaelle Mays presents for follow up. ACT- 25 had moved an dhad been doing well. no urticaria or angioedema. occasional urticaria. Stopped all medications completely. 1-4 weeks later with angioedema. Lip and tongue with swelling off antihistamines. had gone to ER- had had steroids, antihistamines, epipenephrine. had improved while there in ER. had started at work with tongue swelling. severe swelling. Restarted all medications. pepcid once a day. claritin once a day levoceterizine and singulair with once a day. no sedation. occasional hives on ankles and < 24 hours. November 06, 2015 - Michaelle Negron presents for follow up. wedding in 1 month. had had hives 10/25. had been driving home from work- right back of throat with sore throat.developed hives next week. resolved on own. was having laryngitis symptoms. laryngitis symptoms resolved in 24 hours. no new changes. no illness. takes aleve intermittently. none recently. had couple episodes. feels it may be worse with stress and heat. worse with those symptoms. resolved in 24 hours. will add claritin. July 25, 2015 - Michaelle Negron presents for follow up. hives occurring April and now. resolved for hives will last for 48 hours. Current hives started yesterday- right thigh and ankle. will last couple days. in between will resolve. occasional on forehead. no illness recently. no new foods or medicaitons. daily singulair, levocetirizine bid and pepcid 20 mg bid. hives will occur intermittent. less than last summer. no NSAIDS recently. April 05, 2015 - Michaelle Negron presents for follow up. Novemeber with tongue swelling. No illness. Midnight had awoke with tongue swelling. 3 am with persistent symptoms. Had had hives at that time. Gets intermittent hives. Will come and go. Resolved after period of time. Has had intermittent hives. no dermatographism. No worse in cold air. Week prior to ER- aleve 2-3 days. no new foods, no illness. Had been taking singulair in January. Not on pepcid in January. December 20, 2014 - Michaelle Sincere Migdalia presents for follow up. Last Wednesday had had reaction. Wednesday had been sleeping- thought sore throat. Nothing different that evening. next day with slight swelling. had taken singulair and levoceterizine that evening. next am took prednisone with improvement. No ER visit. Had been every 2 weeks previously. Has been 10 months since previous. 6 ducks/ 6 turkeys. None since March. March 30, 2014 - Michaelle Sincere Migdalia presents for follow up. Last Wednesday with swelling of tongue. took zyrtec with improvement. Occurred in am 5 am. Recurred later that day then ER. No illness or change in foods night prior. Wednesday night- 2 days prior had taken naproxen.There has been other times that has taken naproxen since last previous. Had not been using pepcid. January 11, 2014 Consultation requested by Duane Stauffer MD for an opinion regarding angioedema.My final recommendations will be communicated back to the requesting physician by way of shared Medical record or letter to requesting physician via US mail. The patient is a 33 year old female patient who complains of intermittent episodes of angioedema. Developed swelling of tongue started September. After moving into boyfriend home. Awoke in am with righttongue swelling. Took benadryl with improevement. Every time it has occurred will worsen. Has had 4-5 times. Can be facial swelling, tongue, and throat swelling. No difficulty talking or swallowing. Dec 14- in pm, had eaten ham sandwich, macaroni salad, corn puffs (had eaten next day without difficulty). after dinner had had right tongue swelling. took benadryl 12.5 mg without improvement. 2 am with worsening of symptoms. No previous symptoms. No hives. No food association. One occasion had occurred at work. Had started at work. Had not eaten anything new. Does not changediet. Can not determine any causes. [place]. 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 Feeding them- cracked corn, lang mash. Would spend weekends prior without symptoms. Moved into boyfriend;s home 1 week prior. No new medications. Takes Naprosyn (last took it last night). no symptoms last night. Takes Aleve intermittently. unsure if exacerbates symptoms. Works at [employer]. NO FMH of angioedema. No liver or thyroid disease. Review of patient's allergies indicates: Bupropion/Diethylpr* Comment:wellbrutin--rash Penicillins Comment:augmentin- 10 years ago. had had hives and generalized angioedema. Had finished the medications by 2 days then had symptoms. Lasted for 24 hours. no fevers, or achiness. No AR. Nasal polyps: The patient has never had nasal polyps. Asthma: The patient has no history of asthma. Sinusitis: The patient does not suffer from frequent sinopulmonary infections. Latex Allergy: DENIES Contact Dermatitis/Eczema: has a history Food Allergies/Reactions: DENIES Hymenoptera Reaction: denies CAT scan: DENIES Environmental history:older home. Built in . [place]- 22 ducks; 8-10 turkeys Pets in the home: 2 cats Scott: [id number] carpeting Air conditioning: No air conditioning Heating: Forced hot air Basement: Dry basement Dust mite controls: Dust mite controls are not in place. 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 Morbid obesity (HCC) Plantar fasciitis Primary osteoarthritis of right knee PAST SURGICAL HISTORY Procedure Laterality Date INDUCED HX 2009 LAPAROSCOPY SURG CHOLECYSTECTOMY 2013 Cholecystectomy, lap PAST SURGICAL HISTORY OF 1998 vaginal wart removal VAGINOSCOPY 2017 Social History Tobacco Use Smoking status: Former Smoker Packs/day: 0.50 Years: 8.00 Pack years: 4.00 Quit date: 08/29/2012 Years since quittin.9 Smokeless tobacco: Never Used Vaping Use Vaping Use: Never used Substance Use Topics Alcohol use: Yes Comment: rarely Drug use: No Review Of Systems August 08, 2021 GENERAL: No weight loss, malaise or fevers. HEENT: Negative for frequent or significant headaches, No changes in hearing or vision, no nose bleeds or other nasal problems NECK: Negative for lumps, goiter, pain and significant neck swelling RESPIRATORY: Negative for SOB, wheezing, cough, apnea CARDIOVASCULAR: Negative for chest pain, leg swelling or palpitations. GASTROINTESTINAL: No nausea, vomiting, or diarrhea SKIN: see above Physical Video Exam General: alert and appropriate, in no distress, well-hydrated, well nourished and happy, smiling, interactive Skin: no rash noted Head: normocephalic, no abnormality or lesion noted Eyes: no injection and visual acuity is grossly normal Ears: external ears normal, no mastoid tenderness Nose: external nose normal without rhinorrhea Respiratory: breathing non-labored and no grunting/flaring/retractions Chest: equal chest rise with normal respiratory effort Clinical Course and Results Component Latest Ref Rng & Units 04/26/2019 09/26/2020 WBC 3.70 - 11.00 k/uL 7.94 7.70 RBC 3.90 - 5.20 m/uL 4.04 4.33 Hemoglobin 11.5 - 15.5 g/dL 13.0 13.8 Hematocrit 36.0 - 46.0 % 40.4 43.0 MCV 80.0 - 100.0 fL 100.0 99.3 MCH 26.0 - 34.0 pG 32.2 31.9 MCHC 30.5 - 36.0 g/dL 32.2 32.1 RDW-CV 11.5 - 15.0 % 13.7 13.2 Platelet Count 150 - 400 k/uL 304 342 MPV 9.0 - 12.7 fL 11.7 11.4 Neut% % 56.4 Abs Neut (ANC) 1.45 - 7.50 k/uL 4.46 Lymph% % 35.0 Abs Lymph 1.00 - 4.00 k/uL 2.78 Bamberg% % 5.7 Abs Bamberg <0.87 k/uL 0.45 Eosin% % 2.1 Abs Eosin <0.46 k/uL 0.17 Baso% % 0.8 Abs Baso <0.11 k/uL 0.06 Nucleated Reds 0 /100 WBC 0.0 Absolute nRBC <0.01 k/uL <0.01 <0.01 Diff Type Auto Diff Protein, Total 6.3 - 8.0 g/dL 6.6 6.6 Albumin 3.9 - 4.9 g/dL 3.8 (L) 3.7 (L) Calcium 8.5 - 10.2 mg/dL 8.8 8.7 Bilirubin, Total 0.2 - 1.3 mg/dL 0.2 0.2 Alkaline Phosphatase 34 - 123 U/L 64 79 AST 13 - 35 U/L 20 21 Glucose 74 - 99 mg/dL 88 87 BUN 7 - 21 mg/dL 15 13 Creatinine 0.58 - 0.96 mg/dL 0.96 0.91 Sodium 136 - 144 mmol/L 141 142 Potassium 3.7 - 5.1 mmol/L 4.3 4.2 Chloride 97 - 105 mmol/L 105 106 (H) CO2 22 - 30 mmol/L 25 27 Anion Gap 9 - 18 mmol/L 11 9 ALT 7 - 38 U/L 20 22 eGFR- >60 >60 eGFR-All Other Races . >60 >60 Assessment and Plan 1. Angioedema (primary encounter diagnosis) 2. Urticaria. Patient only developed recent urticaria in addition to the angioedema Comment: no obvious cause- chronic idiopathic Plan: Repeat screening serology while on doxepin Continue singulair 10mg Decrease doxepin to 75 mg levocetirizine 5mg as needed Given course of oral steroids for emergency use. Patient has epipen with instruction on use. Avoid NSAIDS (has taken naprosyn without symptoms). Avoid aleve. may use tylenol Avoid HAROLDO I in future with tendency to develop angioedema\ obtain cbc, cmp. ekg 3. 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 I spent a total of 30 minutes on the date of the service which included preparing to see the patient, [id number] patient care, completing clinical documentation and ordering medications, tests, or procedures. Veronique Johns MD documented in this encounterK[facility]-2022 Miscellaneous Notes* Telephone Encounter - Luisana Dewitt - 07/21/2021 9:27 AM EDT [place]: 04/26/20 Next OV: 08/08/21 Pharmacy phones requesting refills as follows: Pending Prescriptions Disp Refills MONTELUKAST 10 MG TABLET 30 tablet 0 Sig: TAKE 1 TABLET BY MOUTH EVERYDAY AT BEDTIME SAVANA: Yes Please review and advise. Luisana Dewitt documented in this encounterK[facility]02-03-2021 History of Present illness Narrative* Anastacio Richard (Rt), Tech - 04/24/2020 1:30 PM EST Radiology Service Progress Note PATIENT NAME: Michaelle Mays DATE OF SERVICE: April 24, 2020 TIME: 1:32 PM PATIENT IDENTITY VERIFICATION COMPLETED USING TWO (2) IDENTIFIERS: Name and Date of confirmedby patient verbally. FALL SCREENING: Has the patient had 2 falls in the last year or 1 fall with injury or currently using an Ambulatory Assistive Device (Walker, Cane, Wheelchair, Crutches, etc.)? No PATIENT GENDER DATA: Female. status: : No status: NO. PATIENT RELEVANT IMPLANT DATA REVIEWED: Not Applicable RADIOLOGY DEPARTMENT: General X-ray: Exam(s) Completed: Upper Extremity X- Ray(s): Fingers/Thumb, left : PERIPHERAL IV DATA: Not applicable SIGNED BY: RT Kenia April 24, 2020 1:32 PM documented in this encounterK[facility]12-17-2020 History of Present illness Narrative* Jerzy Clay (Rt), Tech - 03/07/2020 9:30 AM EST Radiology Service Progress Note PATIENT NAME: Michaelle Mays DATE OF SERVICE: March 07, 2020 TIME: 9:29 AM PATIENT IDENTITY VERIFICATION COMPLETED USING TWO (2) IDENTIFIERS: Name and Date of confirmedby patient verbally. FALL SCREENING: Has the patient had 2 falls in the last year or 1 fall with injury or currently using an Ambulatory Assistive Device (Walker, Cane, Wheelchair, Crutches, etc.)? No PATIENT GENDER DATA: Female. status: : No status: NO. PATIENT RELEVANT IMPLANT DATA REVIEWED: Yes RADIOLOGY DEPARTMENT: General X-ray: Exam(s) Completed: Upper Extremity X- Ray(s): Wrist, right : PERIPHERAL IV DATA: Not applicable SIGNED BY: RT Val March 07, 2020 9:29 AM [place] [id number] History of Past illness Narrative* Problem Noted Date Resolved Date Adult BMI 30+ 02/14/2013 07/02/2017 documented as of this encounter (statuses as of 07/21/2021) [address]26-2013 History of Past illness Narrative* Problem Noted Date Resolved Date Adult BMI 30+ 02/14/2013 07/02/2017 documented as of this encounter (statuses as of 08/08/2021) [address]26-2013 History of Past illness Narrative* Problem Noted Date Resolved Date Adult BMI 30+ 02/14/2013 07/02/2017 documented as of this encounter (statuses as of 08/26/2021) [address]26-2013 History of Past illness Narrative* Problem Noted Date Resolved Date Adult BMI 30+ 02/14/2013 07/02/2017 documented as of this encounter (statuses as of 09/01/2021) [place] [id number] History of Past illness Narrative* Problem Noted Date Resolved Date Adult BMI 30+ 02/14/2013 07/02/2017 documented as of this encounter (statuses as of 09/09/2021) [place] [id number] History of Past illness Narrative* Problem Noted Date Resolved Date Adult BMI 30+ 02/14/2013 07/02/2017 documented as of this encounter (statuses as of 09/30/2021) [address]26-2013 History of Past illness Narrative* Problem Noted Date Resolved Date Adult BMI 30+ 02/14/2013 07/02/2017 documented as of this encounter (statuses as of 10/01/2021) [place] [id number] History of Past illness Narrative* Problem Noted Date Resolved Date Adult BMI 30+ 02/14/2013 07/02/2017 documented as of this encounter (statuses as of 12/02/2021) [place] [id number] History of Past illness Narrative* Problem Noted Date Resolved Date Adult BMI 30+ 02/14/2013 07/02/2017 documented as of this encounter (statuses as of 02/02/2022) [address]26[address]2013 History of Past illness Narrative* Problem Noted Date Resolved Date Adult BMI 30+ 02/14/2013 07/02/2017 documented as of this encounter (statuses as of 03/04/2022) [place] [id number] History of Past illness Narrative* Problem Noted Date Resolved Date Adult BMI 30+ 02/14/2013 07/02/2017 documented as of this encounter (statuses as of 03/06/2022) [address]26[address]2013 History of Past illness Narrative* Problem Noted Date Resolved Date Adult BMI 30+ 02/14/2013 07/02/2017 documented as of this encounter (statuses as of 04/15/2022) [address]26[address]2013 History of Past illness Narrative* Problem Noted Date Resolved Date Adult BMI 30+ 02/14/2013 07/02/2017 documented as of this encounter (statuses as of 04/20/2022) [address]26[address]2013 History of Past illness Narrative* Problem Noted Date Resolved Date Adult BMI 30+ 02/14/2013 07/02/2017 documented as of this encounter (statuses as of 05/06/2022) [place] [id number] History of Past illness Narrative* Problem Noted Date Resolved Date Adult BMI 30+ 02/14/2013 07/02/2017 documented as of this encounter (statuses as of 05/07/2022) [place] [id number] History of Past illness Narrative* Problem Noted Date Resolved Date Adult BMI 30+ 02/14/2013 07/02/2017 documented as of this encounter (statuses as of 2022) [address]26-2013 History of Past illness Narrative* Problem Noted Date Resolved Date Adult BMI 30+ 02/14/2013 07/02/2017 documented as of this encounter (statuses as of 05/14/2022) [place] [id number] History of Past illness Narrative* Problem Noted Date Resolved Date Adult BMI 30+ 02/14/2013 07/02/2017 documented as of this encounter (statuses as of 07/10/2022) [place] [id number] History of Past illness Narrative* Problem Noted Date Resolved Date Adult BMI 30+ 02/14/2013 07/02/2017 documented as of this encounter (statuses as of 07/23/2022) [address]26[address]2013 History of Past illness Narrative* Problem Noted Date Resolved Date Adult BMI 30+ 02/14/2013 07/02/2017 documented as of this encounter (statuses as of 07/27/2022) [address]26[address]2013 History of Past illness Narrative* Problem Noted Date Resolved Date Adult BMI 30+ 02/14/2013 07/02/2017 documented as of this encounter (statuses as of 07/29/2022) [address]26-2013 History of Past illness Narrative* Problem Noted Date Resolved Date Adult BMI 30+ 02/14/2013 07/02/2017 documented as of this encounter (statuses as of 08/24/2022) [address]26[address]2013 History of Past illness Narrative* Problem Noted Date Resolved Date Adult BMI 30+ 02/14/2013 07/02/2017 documented as of this encounter (statuses as of 09/08/2022) [address]26-2013 History of Past illness Narrative* Problem Noted Date Diagnosed Date Resolved Date Adult BMI 30+ 02/14/2013 07/02/2017 documented as of this encounter (statuses as of 10/15/2022) [place] [id number] History of Past illness Narrative* Problem Noted Date Diagnosed Date Resolved Date Adult BMI 30+ 02/14/2013 07/02/2017 documented as of this encounter (statuses as of 11/05/2022) [address]26[address]2013 History of Past illness Narrative* Problem Noted Date Diagnosed Date Resolved Date Adult BMI 30+ 02/14/2013 07/02/2017 documented as of this encounter (statuses as of 11/16/2022) [address]26-2013 History of Past illness Narrative* Problem Noted Date Diagnosed Date Resolved Date Adult BMI 30+ 02/14/2013 07/02/2017 documented as of this encounter (statuses as of 11/30/2022) [place] [id number] History of Past illness Narrative* Problem Noted Date Diagnosed Date Resolved Date Adult BMI 30+ 02/14/2013 07/02/2017 documented as of this encounter (statuses as of 11/30/2022) [place] [id number] History of Past illness Narrative* Problem Noted Date Diagnosed Date Resolved Date Adult BMI 30+ 02/14/2013 07/02/2017 documented as of this encounter (statuses as of 12/02/2022) [address]26[address]2013 History of Past illness Narrative* Problem Noted Date Diagnosed Date Resolved Date Adult BMI 30+ 02/14/2013 07/02/2017 documented as of this encounter (statuses as of 12/03/2022) [address]26-2013 History of Past illness Narrative* Problem Noted Date Diagnosed Date Resolved Date Adult BMI 30+ 02/14/2013 07/02/2017 documented as of this encounter (statuses as of 01/24/2023) [address]26[address]2013 History of Past illness Narrative* Problem Noted Date Diagnosed Date Resolved Date Adult BMI 30+ 02/14/2013 07/02/2017 documented as of this encounter (statuses as of 01/24/2023) [place] [id number] History of Past illness Narrative* Problem Noted Date Diagnosed Date Resolved Date Adult BMI 30+ 02/14/2013 07/02/2017 documented as of this encounter (statuses as of 02/23/2023) [address]26-2013 History of Past illness Narrative* Problem Noted Date Diagnosed Date Resolved Date Adult BMI 30+ 02/14/2013 07/02/2017 documented as of this encounter (statuses as of 03/12/2023) [place] [id number] History of Past illness Narrative* Problem Noted Date Diagnosed Date Resolved Date Adult BMI 30+ 02/14/2013 07/02/2017 documented as of this encounter (statuses as of 05/03/2023) [address]26-2013 History of Past illness Narrative* Problem Noted Date Diagnosed Date Resolved Date Adult BMI 30+ 02/14/2013 07/02/2017 documented as of this encounter (statuses as of 05/13/2023) [address]26-2013 History of Past illness Narrative* Problem Noted Date Diagnosed Date Resolved Date Adult BMI 30+ 02/14/2013 07/02/2017 documented as of this encounter (statuses as of 05/20/2023) [place] [id number] History of Past illness Narrative* Problem Noted Date Diagnosed Date Resolved Date Adult BMI 30+ 02/14/2013 07/02/2017 documented as of this encounter (statuses as of 05/23/2023) [place] [id number] History of Past illness Narrative* Problem Noted Date Diagnosed Date Resolved Date Adult BMI 30+ 02/14/2013 07/02/2017 documented as of this encounter (statuses as of 05/24/2023) [place] [id number] History of Past illness Narrative* Problem Noted Date Diagnosed Date Resolved Date Adult BMI 30+ 02/14/2013 07/02/2017 documented as of this encounter (statuses as of 06/30/2023) [place] [id number] History of Past illness Narrative* Problem Noted Date Diagnosed Date Resolved Date Adult BMI 30+ 02/14/2013 07/02/2017 documented as of this encounter (statuses as of 07/11/2023) [facility] note* Diagnosis Urticaria Urticaria, unspecified Angioedema, subsequent encounter Cough documented in this encounter [facility] note* Diagnosis Encounter for long-term (current) use of medications- Primary Encounter for long-term (current) use of other medications Urticaria Urticaria, unspecified Angioedema, subsequent encounter Cough documented in this encounter [facility] note* Diagnosis Nausea- Primary Nausea alone Diarrhea, unspecified type Abdominal cramping Abdominal pain, unspecified site [facility] [place] [facility]* Diagnosis Primary osteoarthritis of right knee Primary localized osteoarthrosis, lower leg documented in this encounter [facility] note* Diagnosis Encounter for screening mammogram for malignant neoplasm of breast Other screening mammogram documented in this encounter [facility] note* Diagnosis Diarrhea, unspecified type- Primary [facility] [place] [facility]* Diagnosis Urticaria- Primary Urticaria, unspecified Angioedema, subsequent encounter Encounter for long-term (current) use of medications Encounter for long-term (current) use of other medications documented in this encounter [facility] note* Diagnosis Strain of neck muscle, initial encounter- Primary documented in this encounter [facility] note* Diagnosis Right knee pain, unspecified chronicity- Primary documented [facility] this [facility] [place] [facility]* Diagnosis Primary osteoarthritis of right knee Primary localized osteoarthrosis, lower leg documented in this encounter [facility] [place] [facility]* Diagnosis Encounter for screening mammogram for malignant neoplasm of breast- Primary Other screening mammogram Women's annual routine gynecological examination [facility] [place] [facility]* Diagnosis Medication refill Issue of repeat prescriptions Encounter for surveillance of contraceptive pills Surveillance of previously prescribed contraceptive pill documented in this encounter [facility] [place] [facility]* Diagnosis Encounter for long-term (current) use of medications Encounter for long-term (current) use of other medications documented in this encounter [facility] note* Diagnosis Skin infection- Primary Unspecified local infection of skin and subcutaneous tissue documented in this encounter [facility] note* Diagnosis Skin infection- Primary Unspecified local infection of skin and subcutaneous tissue Blister of skin documented in this encounter [facility] note* Diagnosis Acute left-sided low back pain without sciatica- Primary Blister of left hand, initial encounter documented in this encounter [facility] note* Diagnosis Impacted cerumen of left ear- Primary Impacted cerumen documented in this encounter [facility] note* Diagnosis Urticaria Urticaria, unspecified Angioedema, subsequent encounter Cough documented in this encounter [facility] note* Diagnosis Fatigue, unspecified type- Primary documented in this encounter [facility] note* Diagnosis Primary osteoarthritis of right knee Primary localized osteoarthrosis, lower leg documented in this encounter [facility] note* Diagnosis URI, acute- Primary Acute upper respiratory infections of unspecified site documented in this encounter [facility] note* Diagnosis Right knee pain, unspecified chronicity documented in this encounter [facility] note* Diagnosis Encounter for screening mammogram for malignant neoplasm of breast Other screening mammogram documented in this encounter [facility] note* Diagnosis Viral illness- Primary Unspecified viral infection, in conditions classified elsewhere and of unspecified site documented in this encounter [facility] note* Diagnosis Acute pain of right knee- Primary documented in this encounter [facility] note* Diagnosis Urticaria Urticaria, unspecified Angioedema, subsequent encounter Cough documented in this encounter [facility] note* Diagnosis Encounter for gynecological examination (general) (routine) without abnormal findings- Primary Medication refill Issue of repeat prescriptions Encounter for surveillance of contraceptive pills Surveillance of previously prescribed contraceptive pill documented in this encounter [facility] note* Diagnosis URI, acute- Primary Acute upper respiratory infections of unspecified site documented in this encounter [facility] note* Diagnosis Blister of left hand, initial encounter- Primary [facility] Diagnosis Blister (nonthermal) of left hand, sequela- Primary documented in this encounter [facility] note* Diagnosis Diarrhea, unspecified type- Primary documented in this encounter [facility] note* Diagnosis Blister of left hand excluding fingers, subsequent encounter- Primary documented in this encounter [facility] note* Diagnosis Primary osteoarthritis of right knee Primary localized osteoarthrosis, lower leg documented in this encounter [facility] note* Diagnosis Encounter for screening mammogram for malignant neoplasm of breast- Primary Other screening mammogram documented in this encounter [facility] note* Diagnosis Primary osteoarthritis of right knee Primary localized osteoarthrosis, lower leg documented in this encounter [facility] note* Diagnosis Pain of upper abdomen- Primary Abdominal pain, other specified site documented in this encounter [facility] note* Diagnosis Acute pain of right shoulder- Primary Acute pain of right shoulder documented in this encounter [facility] note* Diagnosis Acute pain of right shoulder- Primary documented in this encounter [facility] note* Diagnosis Primary osteoarthritis of right knee Primary localized osteoarthrosis, lower leg documented in this encounter [facility] note* Diagnosis Fatigue, unspecified type- Primary documented in this encounter [facility] note* Diagnosis Encounter for screening mammogram for malignant neoplasm of breast Other screening mammogram documented in this encounter [facility] note* Diagnosis Acute pain of right shoulder documented in this encounter [facility] note* Diagnosis Wrist injury, right, initial encounter documented in this encounter [facility] note* Diagnosis Strain of neck muscle, initial encounter- Primary documented in this encounter [facility] note* Diagnosis Viral URI- Primary Acute upper respiratory infections of unspecified site Sinus congestion Other diseases of nasal cavity and sinuses documented in this encounter [facility] note* Diagnosis Urticaria- Primary Urticaria, unspecified Angioedema, subsequent encounter Allergy to penicillin Personal history of allergy to penicillin documented in this encounter [facility] note* Diagnosis Allergy to penicillin- Primary Personal history of allergy to penicillin Urticaria Urticaria, unspecified Angioedema, subsequent encounter documented in this encounter [facility] course Narrative No data available for this section [facility] Reason for referral (narrative)* Outpatient Procedure (Routine) - Pending Review Specialty Diagnoses / Procedures Referred By Contac t Referred To Contact [facility] Diagnoses Encounter for long-term (current) use of medications Procedures ECG COMPLETE ECG ROUTINE ECG W/LEAST 12 LDS W/I&[place] [address] [place] [address] [facility] [address] [place] [address] Referral ID Status Reason Start Date Expiration Date Visits Requested Visits Authorized [id number] Pending Review Auto-Generat ed Referral 08/08/2021 08/08/2022 1 1 [facility] for referral (narrative)* Diagnostic Procedure Only (Routine) - Closed Specialty Diagnoses / Procedures Referred By Contac t Referred To Contact [facility] Diagnoses Encounter for screening mammogram for malignant neoplasm of breast Procedures JEN SCREENING W CHRISTOPHER SCREENING DIGITAL BREAST TOMOSYNTHESIS BI SCREENING MAMMOGRAPHY BI 2-VIEW BREAST INC CAD Micah Jo MD [address] [place] [address] [facility] [address] [place] [address] Referral ID Status Reason Start Date Expiration Date V isits Requested Visits Authorized [id number] Closed Auto-Generate d Referral 05/05/2021 06/04/2022 1 1 [facility] for referral (narrative)* Outpatient Procedure (Routine) - Pending Review Specialty Diagnoses / Procedures Referred By Contac t Referred To Contact [facility] Diagnoses Encounter for long-term (current) use of medications Procedures ECG COMPLETE ECG ROUTINE ECG W/LEAST 12 LDS W/I&[place] [address] [place] [id number] [facility] [address] [place] [address] Referral ID Status Reason Start Date Expiration Date Visits Requested Visits Authorized [id number] Pending Review Auto-Generat ed Referral 2 02/02/2023 [address] [facility] for referral (narrative)* Diagnostic Procedure Only (Routine) - Pending Review Specialty Diagnoses / Procedures Referred By Contac t Referred To Contact XR IMAGING Diagnoses Right knee pain, unspecified chronicity Procedures XR KNEE GENERAL 4V AP BOTH/PA BOTH/LAT/MERC RIGHT RADIOLOGIC EXAM KNEE COMPLETE 4/MORE VIEWS Arthur Krishnan MD [address] [place] [address] [facility] Referral ID Status Reason Start Date Expiration Date Visits Requested Visits Authorized [id number] Pending Review Auto-Generat ed Referral 04/15/2022 05/15/2023 [address] [facility] for referral (narrative)* Diagnostic Procedure Only (Routine) - Pending Review Specialty Diagnoses / Procedures Referred By Contac t Referred To Contact [facility] Diagnoses Encounter for screening mammogram for malignant neoplasm of breast Procedures JEN SCREENING W CHRISTOPHER SCREENING DIGITAL BREAST TOMOSYNTHESIS BI SCREENING MAMMOGRAPHY BI 2-VIEW BREAST INC CAD Micah Jo MD [address] [address] [facility] [address] [place] [address] Referral ID Status Reason Start Date Expiration Date Visits Requested Visits Authorized [id number] Pending Review Auto-Generat ed Referral 05/06/2022 06/05/2023 [address] [facility] for referral (narrative)* Diagnostic Procedure Only (Routine) - Closed Specialty Diagnoses / Procedures Referred By Contac t Referred To Contact XR IMAGING Diagnoses Right knee pain, unspecified chronicity Procedures XR KNEE GENERAL 4V AP BOTH/PA BOTH/LAT/MERC RIGHT RADIOLOGIC EXAM KNEE COMPLETE 4/MORE VIEWS Arthur Krishnan MD [address] [place] [address] [place] [id number] Referral ID Status Reason Start Date Expiration Date V isits Requested Visits Authorized [id number] Closed Auto-Generate d Referral 04/15/2022 05/15/2023 1 1 [facility] for referral (narrative)* Diagnostic Procedure Only (Routine) - Closed Specialty Diagnoses / Procedures Referred By Contac t Referred To Contact [facility] Diagnoses Encounter for screening mammogram for malignant neoplasm of breast Procedures JEN SCREENING W CHRISTOPHER SCREENING DIGITAL BREAST TOMOSYNTHESIS BI SCREENING MAMMOGRAPHY BI 2-VIEW BREAST INC Micah Avendano MD [address] [address] [facility] [address] [place] [address] Referral ID Status Reason Start Date Expiration Date V isits Requested Visits Authorized [id number] Closed Auto-Generate d Referral 05/06/2022 06/05/2023 1 1 [facility] for referral (narrative)* Diagnostic Procedure Only (Routine) - Pending Review Specialty Diagnoses / Procedures Referred By Contac t Referred To Contact [facility] Diagnoses Encounter for screening mammogram for malignant neoplasm of breast Procedures JEN SCREENING W CHRISTOPHER SCREENING DIGITAL BREAST TOMOSYNTHESIS BI SCREENING MAMMOGRAPHY BI 2-VIEW BREAST INC Micah Avendano MD [address] [address] [facility] [address] [place] [address] Referral ID Status Reason Start Date Expiration Date Visits Requested Visits Authorized [id number] Pending Review Auto-Generat ed Referral 07/14/2023 08/12/2024 1 1 T [facility] for referral (narrative)* Diagnostic Procedure Only (Urgent) - Closed Specialty Diagnoses / Procedures Referred By Contac t Referred To Contact XR IMAGING Diagnoses Acute pain of right shoulder Procedures XR SHOULDER GENERAL 3V OR MORE AP/TRUE AP/OTHER RIGHT RADEX SHOULDER COMPLETE MINIMUM 2 VIEWS [facility] [address] [place] [address] [place] [id number] Referral ID Status Reason Start Date Expiration Date V isits Requested Visits Authorized [id number] Closed Auto-Generate d Referral 08/04/2023 09/02/2024 1 1 [facility] for referral (narrative)No reason for referral information [facility] Work Phone: Reason for visit Narrative* Diagnostic Procedure Only (Routine) - Closed Specialty Diagnoses / Procedures Referred By Contac t Referred To Contact [facility] Diagnoses Encounter for screening mammogram for malignant neoplasm of breast Procedures JEN SCREENING W CHRISTOPHER SCREENING DIGITAL BREAST TOMOSYNTHESIS BI SCREENING MAMMOGRAPHY BI 2-VIEW BREAST INC CAD Micah Jo MD [address] [address] [facility] [address] [place] [address] Referral ID Status Reason Start Date Expiration Date V isits Requested Visits Authorized [id number] Closed Auto-Generate d Referral 05/05/2021 06/04/2022 1 1 [facility] for visit Narrative* Diagnostic Procedure Only (Routine) - Closed Specialty Diagnoses / Procedures Referred By Contac t Referred To Contact XR IMAGING Diagnoses Right knee pain, unspecified chronicity Procedures XR KNEE GENERAL 4V AP BOTH/PA BOTH/LAT/MERC RIGHT RADIOLOGIC EXAM KNEE COMPLETE 4/MORE VIEWS Arthur Krishnan MD [address] [place] [address] [place] [id number] Referral ID Status Reason Start Date Expiration Date V isits Requested Visits Authorized [id number] Closed Auto-Generate d Referral 04/15/2022 05/15/2023 1 1 [facility] for visit Narrative* Diagnostic Procedure Only (Routine) - Closed Specialty Diagnoses / Procedures Referred By Contac t Referred To Contact [facility] Diagnoses Encounter for screening mammogram for malignant neoplasm of breast Procedures JEN SCREENING W CHRISTOPHER SCREENING DIGITAL BREAST TOMOSYNTHESIS BI SCREENING MAMMOGRAPHY BI 2-VIEW BREAST INC CAD Micah Jo MD [address] [address] [facility] [address] [place] [address] Referral ID Status Reason Start Date Expiration Date V isits Requested Visits Authorized [id number] Closed Auto-Generate d Referral 05/06/2022 06/05/2023 1 1 [facility] for visit Narrative* Diagnostic Procedure Only (Routine) - Closed Specialty Diagnoses / Procedures Referred By Vandana interiano Referred To Contact [facility] Diagnoses Encounter for screening mammogram for malignant neoplasm of breast Procedures JEN SCREENING W CHIRSTOPHER SCREENING DIGITAL BREAST TOMOSYNTHESIS BI SCREENING MAMMOGRAPHY BI 2-VIEW BREAST INC CAD Micah Jo MD [address] [address] [facility] [address] [place] [address] Referral ID Status Reason Start Date Expiration Date V isits Requested Visits Authorized [id number] Closed Auto-Generate d Referral 07/14/2023 08/12/2024 1 1 [facility] for visit Narrative* Diagnostic Procedure Only (Urgent) - Closed Specialty Diagnoses / Procedures Referred By Vandana interiano Referred To Contact XR IMAGING Diagnoses Acute pain of right shoulder Procedures XR SHOULDER GENERAL 3V OR MORE AP/TRUE AP/OTHER RIGHT RADEX SHOULDER COMPLETE MINIMUM 2 VIEWS [facility] [address] [place] [address] Xr Imaging [facility] Referral ID Status Reason Start Date Expiration Date V isits Requested Visits Authorized [id number] Closed Auto-Generate d Referral 08/04/2023 09/02/2024 1 1 [facility] Summary Purpose Family History No Family History Records FoundNo Family History Records Found No data available for this section No Family History Records FoundNo Family History Records Found Advance Directives No Advanced Directives Records FoundNo Advanced Directives Records FoundNo Advanced Directives Records FoundNo Advanced Directives Records Found Reason for Referral Specialty Diagnoses / Procedures Referred By Vandana interiano Referred To Contact Dermatology Diagnoses Blister (nonthermal) of left hand, sequela Procedures CONSULT TO DERMATOLOGY PodlogJazz rangel APRN.[employer] [address] [place] [address] Referral ID Status Reason Start Date Expiration Date Visits Requested Visits Authorized [id number] Ref Not Required PCP Requested Referral 05/24/2023 05/23/2024 1 1 Specialty Diagnoses / Procedures Referred By Contac t Referred To Contact Orthopedics Diagnoses Acute pain of right shoulder Procedures CONSULT TO ORTHOPAEDICS OFFICE/OUTPATIENT NEW HIGH MDM 60 MINUTES [facility] [address] [place] [address] Referral ID Status Reason Start Date Expiration Date Visits Requested Visits Authorized [id number] Authorized PCP Requested Referral 08/04/2023 08/03/2024 1 1 Specialty Diagnoses / Procedures Referred By Contac t Referred To Contact XR IMAGING Diagnoses Acute pain of right shoulder Procedures XR SHOULDER GENERAL 3V OR MORE AP/TRUE AP/OTHER RIGHT RADEX SHOULDER COMPLETE MINIMUM 2 VIEWS [facility] [address] [place] [address] [place] [id number] Referral ID Status Reason Start Date Expiration Date V isits Requested Visits Authorized [id number] Closed Auto-Generate d Referral 08/04/2023 09/02/2024 1 1 Chief Complaint and Reason for Visit Chief Complaint Admit Date R SHOULDER/NECK PAIN June 14, 2024 11 :20am Fatigue June 27, 2024 6:11 am SCREENING October 09, 2024 12:1 4pm Reason for Visit Admit Date Cervical strain June 14, 2024 11: 20am Thoracic myofascial strain June 14, 11:20am Fatigue June 27, 2024 6:11 am Additional Source Comments INFORMATION SOURCE (unrecogn ized section and content) DATE CREATED AUTHOR 09/14/2017 [facility] ([place]) DATE CREATED AUTHOR AUTHOR'S ORGANIZ ATION 03/14/2024 [facility] DATE CREATED AUTHOR AUTHOR'S ORGANIZ ATION 10/14/2024 [facility] DATE CREATED AUTHOR AUTHOR'S ORGANIZ ATION 11/01/2024 [facility] Source Comments (unrecognize d section and content) In the event this informatio n is protected by the Federal Confidentiality of Alcohol and Drug Abuse Patient Records regulations: The Federal rules restrict any use of the information to criminally investigate or prosecute any alcohol or drug abuse patient.[facility] the event this information is protected by the Federal Confidentiality of Alcohol and Drug Abuse Patient Records regulations: The Federal rules restrict any use of the information to criminally investigate or prosecute any alcohol or drug abuse patient.[facility] the event this information is protected by the Federal Confidentiality of Alcohol and Drug Abuse Patient Records regulations: The Federal rules restrict any use of the information to criminally investigate or prosecute any alcohol or drug abuse patient.[facility] the event this information is protected by the Federal Confidentiality of Alcohol and Drug Abuse Patient Records regulations: The Federal rules restrict any use of the information to criminally investigate or prosecute any alcohol or drug abuse patient.[facility] the event this information is protected by the Federal Confidentiality of Alcohol and Drug Abuse Patient Records regulations: The Federal rules restrict any use of the information to criminally investigate or prosecute any alcohol or drug abuse patient.[facility] the event this information is protected by the Federal Confidentiality of Alcohol and Drug Abuse Patient Records regulations: The Federal rules restrict any use of the information to criminally investigate or prosecute any alcohol or drug abuse patient.[facility] the event this information is protected by the Federal Confidentiality of Alcohol and Drug Abuse Patient Records regulations: The Federal rules restrict any use of the information to criminally investigate or prosecute any alcohol or drug abuse patient.[facility] the event this information is protected by the Federal Confidentiality of Alcohol and Drug Abuse Patient Records regulations: The Federal rules restrict any use of the information to criminally investigate or prosecute any alcohol or drug abuse patient.[facility] the event this information is protected by the Federal Confidentiality of Alcohol and Drug Abuse Patient Records regulations: The Federal rules restrict any use of the information to criminally investigate or prosecute any alcohol or drug abuse patient.[facility] the event this information is protected by the Federal Confidentiality of Alcohol and Drug Abuse Patient Records regulations: The Federal rules restrict any use of the information to criminally investigate or prosecute any alcohol or drug abuse patient.[facility] the event this information is protected by the Federal Confidentiality of Alcohol and Drug Abuse Patient Records regulations: The Federal rules restrict any use of the information to criminally investigate or prosecute any alcohol or drug abuse patient.[facility] the event this information is protected by the Federal Confidentiality of Alcohol and Drug Abuse Patient Records regulations: The Federal rules restrict any use of the information to criminally investigate or prosecute any alcohol or drug abuse patient.[facility] the event this information is protected by the Federal Confidentiality of Alcohol and Drug Abuse Patient Records regulations: The Federal rules restrict any use of the information to criminally investigate or prosecute any alcohol or drug abuse patient.[facility]bleIn the event this information is protected by the Federal Confidentiality of Alcohol and Drug Abuse Patient Records regulations: The Federal rules restrict any use of the information to criminally investigate or prosecute any alcohol or drug abuse patient.[facility]bleIn the event this information is protected by the Federal Confidentiality of Alcohol and Drug Abuse Patient Records regulations: The Federal rules restrict any use of the information to criminally investigate or prosecute any alcohol or drug abuse patient.[facility]bleIn the event this information is protected by the Federal Confidentiality of Alcohol and Drug Abuse Patient Records regulations: The Federal rules restrict any use of the information to criminally investigate or prosecute any alcohol or drug abuse patient.[facility]bleIn the event this information is protected by the Federal Confidentiality of Alcohol and Drug Abuse Patient Records regulations: The Federal rules restrict any use of the information to criminally investigate or prosecute any alcohol or drug abuse patient.[facility]bleIn the event this information is protected by the Federal Confidentiality of Alcohol and Drug Abuse Patient Records regulations: The Federal rules restrict any use of the information to criminally investigate or prosecute any alcohol or drug abuse patient.[facility]bleIn the event this information is protected by the Federal Confidentiality of Alcohol and Drug Abuse Patient Records regulations: The Federal rules restrict any use of the information to criminally investigate or prosecute any alcohol or drug abuse patient.[facility]bleIn the event this information is protected by the Federal Confidentiality of Alcohol and Drug Abuse Patient Records regulations: The Federal rules restrict any use of the information to criminally investigate or prosecute any alcohol or drug abuse patient.[facility]bleIn the event this information is protected by the Federal Confidentiality of Alcohol and Drug Abuse Patient Records regulations: The Federal rules restrict any use of the information to criminally investigate or prosecute any alcohol or drug abuse patient.[facility]bleIn the event this information is protected by the Federal Confidentiality of Alcohol and Drug Abuse Patient Records regulations: The Federal rules restrict any use of the information to criminally investigate or prosecute any alcohol or drug abuse patient.[facility]bleIn the event this information is protected by the Federal Confidentiality of Alcohol and Drug Abuse Patient Records regulations: The Federal rules restrict any use of the information to criminally investigate or prosecute any alcohol or drug abuse patient.[facility]bleIn the event this information is protected by the Federal Confidentiality of Alcohol and Drug Abuse Patient Records regulations: The Federal rules restrict any use of the information to criminally investigate or prosecute any alcohol or drug abuse patient.[facility]bleIn the event this information is protected by the Federal Confidentiality of Alcohol and Drug Abuse Patient Records regulations: The Federal rules restrict any use of the information to criminally investigate or prosecute any alcohol or drug abuse patient.[facility]bleIn the event this information is protected by the Federal Confidentiality of Alcohol and Drug Abuse Patient Records regulations: The Federal rules restrict any use of the information to criminally investigate or prosecute any alcohol or drug abuse patient.[facility]bleIn the event this information is protected by the Federal Confidentiality of Alcohol and Drug Abuse Patient Records regulations: The Federal rules restrict any use of the information to criminally investigate or prosecute any alcohol or drug abuse patient.[facility]bleIn the event this information is protected by the Federal Confidentiality of Alcohol and Drug Abuse Patient Records regulations: The Federal rules restrict any use of the information to criminally investigate or prosecute any alcohol or drug abuse patient.[facility]bleIn the event this information is protected by the Federal Confidentiality of Alcohol and Drug Abuse Patient Records regulations: The Federal rules restrict any use of the information to criminally investigate or prosecute any alcohol or drug abuse patient.[facility]bleIn the event this information is protected by the Federal Confidentiality of Alcohol and Drug Abuse Patient Records regulations: The Federal rules restrict any use of the information to criminally investigate or prosecute any alcohol or drug abuse patient.[facility]bleIn the event this information is protected by the Federal Confidentiality of Alcohol and Drug Abuse Patient Records regulations: The Federal rules restrict any use of the information to criminally investigate or prosecute any alcohol or drug abuse patient.[facility]bleIn the event this information is protected by the Federal Confidentiality of Alcohol and Drug Abuse Patient Records regulations: The Federal rules restrict any use of the information to criminally investigate or prosecute any alcohol or drug abuse patient.[facility]bleIn the event this information is protected by the Federal Confidentiality of Alcohol and Drug Abuse Patient Records regulations: The Federal rules restrict any use of the information to criminally investigate or prosecute any alcohol or drug abuse patient.[facility]bleIn the event this information is protected by the Federal Confidentiality of Alcohol and Drug Abuse Patient Records regulations: The Federal rules restrict any use of the information to criminally investigate or prosecute any alcohol or drug abuse patient.[facility]bleIn the event this information is protected by the Federal Confidentiality of Alcohol and Drug Abuse Patient Records regulations: The Federal rules restrict any use of the information to criminally investigate or prosecute any alcohol or drug abuse patient.[facility]bleIn the event this information is protected by the Federal Confidentiality of Alcohol and Drug Abuse Patient Records regulations: The Federal rules restrict any use of the information to criminally investigate or prosecute any alcohol or drug abuse patient.[facility]bleIn the event this information is protected by the Federal Confidentiality of Alcohol and Drug Abuse Patient Records regulations: The Federal rules restrict any use of the information to criminally investigate or prosecute any alcohol or drug abuse patient.[facility]bleIn the event this information is protected by the Federal Confidentiality of Alcohol and Drug Abuse Patient Records regulations: The Federal rules restrict any use of the information to criminally investigate or prosecute any alcohol or drug abuse patient.[facility]In the event this information is protected by the Federal Confidentiality of Alcohol and Drug Abuse Patient Records regulations: The Federal rules restrict any use of the information to criminally investigate or prosecute any alcohol or drug abuse patient.[facility]bleIn the event this information is protected by the Federal Confidentiality of Alcohol and Drug Abuse Patient Records regulations: The Federal rules restrict any use of the information to criminally investigate or prosecute any alcohol or drug abuse patient.[facility]bleIn the event this information is protected by the Federal Confidentiality of Alcohol and Drug Abuse Patient Records regulations: The Federal rules restrict any use of the information to criminally investigate or prosecute any alcohol or drug abuse patient.[facility]bleIn the event this information is protected by the Federal Confidentiality of Alcohol and Drug Abuse Patient Records regulations: The Federal rules restrict any use of the information to criminally investigate or prosecute any alcohol or drug abuse patient.[facility]bleIn the event this information is protected by the Federal Confidentiality of Alcohol and Drug Abuse Patient Records regulations: The Federal rules restrict any use of the information to criminally investigate or prosecute any alcohol or drug abuse patient.[facility]In the event this information is protected by the Federal Confidentiality of Alcohol and Drug Abuse Patient Records regulations: The Federal rules restrict any use of the information to criminally investigate or prosecute any alcohol or drug abuse patient.[facility]bleIn the event this information is protected by the Federal Confidentiality of Alcohol and Drug Abuse Patient Records regulations: The Federal rules restrict any use of the information to criminally investigate or prosecute any alcohol or drug abuse patient.[facility]bleIn the event this information is protected by the Federal Confidentiality of Alcohol and Drug Abuse Patient Records regulations: The Federal rules restrict any use of the information to criminally investigate or prosecute any alcohol or drug abuse patient.[facility]bleIn the event this information is protected by the Federal Confidentiality of Alcohol and Drug Abuse Patient Records regulations: The Federal rules restrict any use of the information to criminally investigate or prosecute any alcohol or drug abuse patient.[facility]bleIn the event this information is protected by the Federal Confidentiality of Alcohol and Drug Abuse Patient Records regulations: The Federal rules restrict any use of the information to criminally investigate or prosecute any alcohol or drug abuse patient.[facility]bleIn the event this information is protected by the Federal Confidentiality of Alcohol and Drug Abuse Patient Records regulations: The Federal rules restrict any use of the information to criminally investigate or prosecute any alcohol or drug abuse patient.[facility]bleIn the event this information is protected by the Federal Confidentiality of Alcohol and Drug Abuse Patient Records regulations: The Federal rules restrict any use of the information to criminally investigate or prosecute any alcohol or drug abuse patient.[facility]bleIn the event this information is protected by the Federal Confidentiality of Alcohol and Drug Abuse Patient Records regulations: The Federal rules restrict any use of the information to criminally investigate or prosecute any alcohol or drug abuse patient.[facility] the event this information is protected by the Federal Confidentiality of Alcohol and Drug Abuse Patient Records regulations: The Federal rules restrict any use of the information to criminally investigate or prosecute any alcohol or drug abuse patient.[facility]bleIn the event this information is protected by the Federal Confidentiality of Alcohol and Drug Abuse Patient Records regulations: The Federal rules restrict any use of the information to criminally investigate or prosecute any alcohol or drug abuse patient.[facility]bleIn the event this information is protected by the Federal Confidentiality of Alcohol and Drug Abuse Patient Records regulations: The Federal rules restrict any use of the information to criminally investigate or prosecute any alcohol or drug abuse patient.[facility]In the event this information is protected by the Federal Confidentiality of Alcohol and Drug Abuse Patient Records regulations: The Federal rules restrict any use of the information to criminally investigate or prosecute any alcohol or drug abuse patient.[facility]bleIn the event this information is protected by the Federal Confidentiality of Alcohol and Drug Abuse Patient Records regulations: The Federal rules restrict any use of the information to criminally investigate or prosecute any alcohol or drug abuse patient.[facility]bleIn the event this information is protected by the Federal Confidentiality of Alcohol and Drug Abuse Patient Records regulations: The Federal rules restrict any use of the information to criminally investigate or prosecute any alcohol or drug abuse patient.[facility]In the event this information is protected by the Federal Confidentiality of Alcohol and Drug Abuse Patient Records regulations: The Federal rules restrict any use of the information to criminally investigate or prosecute any alcohol or drug abuse patient.[facility]bleIn the event this information is protected by the Federal Confidentiality of Alcohol and Drug Abuse Patient Records regulations: The Federal rules restrict any use of the information to criminally investigate or prosecute any alcohol or drug abuse patient.[facility]bleIn the event this information is protected by the Federal Confidentiality of Alcohol and Drug Abuse Patient Records regulations: The Federal rules restrict any use of the information to criminally investigate or prosecute any alcohol or drug abuse patient.[facility]bleIn the event this information is protected by the Federal Confidentiality of Alcohol and Drug Abuse Patient Records regulations: The Federal rules restrict any use of the information to criminally investigate or prosecute any alcohol or drug abuse patient.[facility]bleIn the event this information is protected by the Federal Confidentiality of Alcohol and Drug Abuse Patient Records regulations: The Federal rules restrict any use of the information to criminally investigate or prosecute any alcohol or drug abuse patient.[facility]bleIn the event this information is protected by the Federal Confidentiality of Alcohol and Drug Abuse Patient Records regulations: The Federal rules restrict any use of the information to criminally investigate or prosecute any alcohol or drug abuse patient.[facility]bleIn the event this information is protected by the Federal Confidentiality of Alcohol and Drug Abuse Patient Records regulations: The Federal rules restrict any use of the information to criminally investigate or prosecute any alcohol or drug abuse patient.[facility] Reason for Visit (unrecogniz ed section and content) Reason Comments Refill Request Reason Comments Follow Up Reason Comments Diarrhea lower abd pain rated 5, x1 day denied blood, mucus Nausea Reason Comments GI Upset diarrhea and nausea x 12 hours Reason Comments Pain Pt reported Hx pinch ed nerve, intermittent (LT) sided neck pain rated 10 w/mvmt. Reason Comments Well Woman Reason Comments EKG Specialty Diagnoses / Procedures Referred By Contac t Referred To [facility] Diagnoses Encounter for long-term (current) use of medications Procedures ECG COMPLETE ECG ROUTINE ECG W/LEAST 12 LDS W/I&[place] [address] [place] [address] [facility] [place] [place] [address] Referral ID Status Reason Start Date Expiration Date V isits Requested Visits Authorized [id number] Closed Auto-Generate d Referral 02/02/2022 02/02/2023 1 1 Reason Comments Letter Reason Comments Medication Problem Reason Comments Derm Problem Urgent care follow u p for skin infection, not getting any better Reason Comments Follow Up Skin infection on le ft inner hand Reason Comments Back Pain Low left back pain, pulled Wednesday evening Derm Problem Wants left hand rech ecked Reason Comments Follow Up Still having left mu ffled hearing, sx returned for the last 2 months Specialty Diagnoses / Procedures Referred By Contact Referred To Contact Ent - Otolaryngology / ENT-OTOLARYNGOLOGY Diagnoses Same problem with my left ear as last year. Procedures [facility] OFFICE VISIT Self Treva Reynolds MD [address] [place] [address] Referral ID Status Reason Start Date Expiration Date V isits Requested Visits Authorized [id number] Authorized 03/22/2022 03/21/2023 99 99 Reason Comments Fatigue x 1 day Reason Onset Date Comments Refill Request 11/30/2022 Reason Onset Date Comments Refill Request 12/01/2022 Reason Comments Sinus Problem sinus pressure x 6 d ays, cough, sneezing, fatigue x today Reason Comments Sore Throat ST, fatigue and snee zing x 1 day Reason Comments right knee injury Patient twisted knee this am. Will need at least work excuse for today. Reason Comments Well Woman Reason Comments Cough Raspy throat, clammy , fatigue, diarrhea x 2 days Reason Comments Mass Left hand blister x 3 days Reason Comments Follow Up Blister on left hand ; taking bactrim and doesn't think it's working as it did prior. Reason Comments Nausea Diarrhea and bodyach es. X2 days Reason Comments Musculoskeletal Problem Left palm swolle n and painful comes on and off. Reason Onset Date Comments Refill Request 07/27/2023 Reason Comments GI Upset with soft stool x to day Reason Comments Shoulder Injury right x 1 month, fel l at home Reason Comments Appointment Cancelled 08/26/23 needs travis eduled, see notes for contact attempts. Reason Comments Pain Right arm and should er pain from fall in June Reason Comments Fatigue Lethargic x 1 day Reason Comments Appointment Reason Comments Neck Pain Stiff neck x this AM Reason Comments Pain, Sinus Nasal congestion, he adache, sinus pressure, ear pressure, cough x 4 days Reason Comments Hives Reason Comments Follow Up Penicillin testing Care Teams (unrecognized sec tion and content) Interactive Media Director Relationship Specialty Start Date End Date Cheng Mcdaniel MD [address] [place] [address] PCP - General Family Practice 05/06/18 Interactive Media Director Relationship Specialty Start Date End Date Cheng Mcdaniel MD [address] [place] [address] PCP - General Family Practice 05/06/18 Interactive Media Director Relationship Specialty Start Date End Date Cheng Mcdaniel MD [address] [place] [address] PCP - General Family Practice 05/06/18 Interactive Media Director Relationship Specialty Start Date End Date Cheng Mcdaniel MD [address] [place] [address] PCP - General Family Practice 05/06/18 Interactive Media Director Relationship Specialty Start Date End Date Cheng Mcdaniel MD [address] [place] [address] PCP - General Family Practice 05/06/18 Interactive Media Director Relationship Specialty Start Date End Date Cheng Mcdaniel MD [address] [place] [address] PCP - General Family Practice 05/06/18 Interactive Media Director Relationship Specialty Start Date End Date Cheng Mcdaniel MD [address] [place] [address] PCP - General Family Practice 05/06/18 Interactive Media Director Relationship Specialty Start Date End Date Cheng Mcdaniel MD [address] [place] [address] PCP - General Family Medicine 05/06/18 Interactive Media Director Relationship Specialty Start Date End Date Cheng Mcdaniel MD [address] [place] [address] PCP - General Family Medicine 05/06/18 Interactive Media Director Relationship Specialty Start Date End Date Cheng Mcdaniel MD [address] [place] [address] PCP - General Family Medicine 05/06/18 Interactive Media Director Relationship Specialty Start Date End Date Cheng Mcdaniel MD [address] [place] [address] PCP - General Family Medicine 05/06/18 Interactive Media Director Relationship Specialty Start Date End Date Cheng Mcdaniel MD [address] [place] [address] PCP - General Family Medicine 05/06/18 Interactive Media Director Relationship Specialty Start Date End Date Cheng Mcdaniel MD [address] [place] [address] PCP - General Family Medicine 05/06/18 Interactive Media Director Relationship Specialty Start Date End Date Cheng Mcdaniel MD [address] [place] [address] PCP - General Family Medicine 05/06/18 Interactive Media Director Relationship Specialty Start Date End Date Cheng Mcdaniel MD [address] [place] [address] PCP - General Family Medicine 05/06/18 Interactive Media Director Relationship Specialty Start Date End Date Cheng Mcdaniel MD [address] [place] [address] PCP - General Family Medicine 05/06/18 Interactive Media Director Relationship Specialty Start Date End Date Cheng Mcdaniel MD [address] [place] [address] PCP - General Family Medicine 05/06/18 Interactive Media Director Relationship Specialty Start Date End Date Cheng Mcdaniel MD [address] [place] [address] PCP - General Family Medicine 05/06/18 Interactive Media Director Relationship Specialty Start Date End Date Cheng Mcdaniel MD [address] [place] [address] PCP - General Family Medicine 05/06/18 Interactive Media Director Relationship Specialty Start Date End Date Cheng Mcdaniel MD [address] [place] [address] PCP - General Family Medicine 05/06/18 Interactive Media Director Relationship Specialty Start Date End Date Cheng Mcdaniel MD [address] [place] [address] PCP - General Family Medicine 05/06/18 Interactive Media Director Relationship Specialty Start Date End Date Cheng Mcdaniel MD [address] [place] [address] PCP - General Family Medicine 05/06/18 Interactive Media Director Relationship Specialty Start Date End Date Cheng Mcdaniel MD [address] [place] [address] PCP - General Family Medicine 05/06/18 Interactive Media Director Relationship Specialty Start Date End Date Cheng Mcdaniel MD [address] [place] [address] PCP - General Family Medicine 05/06/18 Interactive Media Director Relationship Specialty Start Date End Date Cheng Mcdaniel MD [address] [place] [address] PCP - General Family Medicine 05/06/18 Interactive Media Director Relationship Specialty Start Date End Date Cheng Mcdaniel MD [address] [place] [address] PCP - General Family Medicine 05/06/18 Interactive Media Director Relationship Specialty Start Date End Date Cheng Mcdaniel MD [address] [place] [address] PCP - General Family Medicine 05/06/18 Interactive Media Director Relationship Specialty Start Date End Date Cheng Mcdaniel MD [address] [place] [address] PCP - General Family Medicine 05/06/18 Interactive Media Director Relationship Specialty Start Date End Date Cheng Mcdaniel MD [address] [place] [address] PCP - General Family Medicine 05/06/18 Interactive Media Director Relationship Specialty Start Date End Date Cheng Mcdaniel MD [address] [place] [address] PCP - General Family Medicine 05/06/18 Interactive Media Director Relationship Specialty Start Date End Date Cheng Mcdaniel MD [address] [place] [address] PCP - General Family Medicine 05/06/18 Interactive Media Director Relationship Specialty Start Date End Date Cheng Mcdaniel MD [address] [place] [address] PCP - General Family Medicine 05/06/18 Interactive Media Director Relationship Specialty Start Date End Date Cheng Mcdaniel MD [address] [place] [address] PCP - General Family Medicine 05/06/18 Interactive Media Director Relationship Specialty Start Date End Date Cheng Mcdaniel MD [address] [place] [address] PCP - General Family Medicine 05/06/18 Interactive Media Director Relationship Specialty Start Date End Date Cheng Mcdaniel MD [address] [place] [address] PCP - General Family Medicine 05/06/18 Interactive Media Director Relationship Specialty Start Date End Date Cheng Mcdaniel MD [address] [place] [address] PCP - General Family Medicine 05/06/18 Interactive Media Director Relationship Specialty Start Date End Date Cheng Mcdaniel MD [address] [place] [address] PCP - General Family Medicine 05/06/18 Interactive Media Director Relationship Specialty Start Date End Date Cheng Mcdaniel MD [address] [place] [address] PCP - General Family Medicine 05/06/18 Interactive Media Director Relationship Specialty Start Date End Date Cheng Mcdaniel MD [address] [place] [address] PCP - General Family Medicine 05/06/18 Interactive Media Director Relationship Specialty Start Date End Date Cheng Mcdaniel MD [address] [place] [address] PCP - General Family Medicine 05/06/18 Gume Wrightie, QA AUTOMATION ARCHITECT.PITCHING COACH [address] [place] [address] Senior Technical [facility] 02/26/24 Interactive Media Director Relationship Specialty Start Date End Date Cheng Mcdaniel MD [address] [place], [place] [id number] PCP - General Family Medicine 05/06/18 Podlogar, Jazz, QA AUTOMATION ARCHITECT.PITCHING COACH [address] [place], [place] [id number] [facility] 02/26/24 Team Status: Active Member Role/Relationship Status Yoav Riggins MD Primary Care Provider Active Team Status: Inactive Member Role/Relationship Status Yoav Riggins MD Primary Care Provider Active St art: June 14, 2024 End: June 14, 2024 Wild Riggins MD Referring Provider Active Start : June 14, 2024 End: June 14, 2024 SHIN Brock Attending Provider Active Start: June 14, 2024 End: June 14, 2024 Team Status: Inactive Member Role/Relationship Status Yoav Riggins MD Primary Care Provider Active St art: June 27, 2024 End: June 27, 2024 Wild Riggins MD Referring Provider Active Start : June 27, 2024 End: June 27, 2024 Kunal MELISSA PA Attending Provider Active Start: June 27, 2024 End: June 27, 2024 Team Status: Inactive Member Role/Relationship Status Yoav Riggins MD Primary Care Provider Active St art: October 09, 2024 End: October 09, 2024 CHRISTIN Jj NPC Attending Provider Active Start: October 09, 2024 End: October 09, 2024 Nico Osuna NP, NP-C Referring Provider Active Start: October 09, 2024 End: October 09, 2024 Goals (unrecognized section and content) Goals may be documented in a n alternate section FOR RECORDS PERTAINING TO PATIENTS WHO ARE OR HAVE BEEN ENROLLED IN A CHEMICAL DEPENDENCY/SUBSTANCEABUSE PROGRAM, SOME INFORMATION MAY BE OMITTED. This clinical summary was aggregated from multiple sources. Caution should be exercised in using it in the provision of clinical care. This summary normalizes information from multiple sources, and as a consequence, information in this document may materially change the coding, format and clinical context of patient data. In addition, data may be omitted in some cases. CLINICAL DECISIONS SHOULD BE BASED ON THE PRIMARY CLINICAL RECORDS. [facility] [employer] [facility]. provides no warranty or guarantee of the accuracy or completeness of information in this document.
[2024-11-01 21:14] VITALS: BP 138/75; PULSE 80; RESP 15; TEMP 36.7; O2SAT 100
== END 2024-11-01 21:15 | disposition home or self-care (01) ==
PROVIDERS: Emergency Provider Student in an Organized Health Care Education/Training Program; PCP Family Medicine; Referring Provider Student in an Organized Health Care Education/Training Program; Visit Provider Student in an Organized Health Care Education/Training Program
DX: S16.1XXA Strain of muscle, fascia and tendon at neck level, initial encounter (principal); S00.81XA Abrasion of other part of head, initial encounter; W18.39XA Other fall on same level, initial encounter; R42 Dizziness and giddiness; Z87.891 Personal history of nicotine dependence
CPT/HCPCS: 70450; 72125; 93005; 99282

== ENCOUNTER → 2024-11-17 | Outpatient (CLI) | payer OTHER, SELFPAY ==
--- NOTE | 2024-11-17 14:48 | CDU_ITS ---
Reason For Study Reason For Study: Dizziness and giddiness Rt. Velocities/BP Lt. Velocities/BP Prox CCA 139.4/24.3 cm/sec. Prox CCA 141.2/22.5 cm/sec. Mid CCA 143/29.8 cm/sec. Mid CCA 122.9/26.1 cm/sec. Dist CCA 97.4/26.1 cm/sec. Dist CCA 104.7/24.3 cm/sec. Prox ICA 72.8/17.6 cm/sec. Prox ICA 63/19 cm/sec. Mid ICA 117.4/31.6 cm/sec. Mid ICA 76.2/26.7 cm/sec. Dist ICA 84.6/27.9 cm/sec. Dist ICA 66.3/24.5 cm/sec. Rt. ICA/CCA = 0.82. Lt. ICA/CCA = 0.62. Prox ECA 104.7/15.2 cm/sec. Prox ECA 97.1/11.3 cm/sec. Rt. Vert. 54.2/14.6 cm/sec. Lt. Vert. 71.8/12.4 cm/sec. Right Extracranial There is intimal thickening but no significant atherosclerotic plaque noted in the right common carotid artery. There is intimal thickening but no significant atherosclerotic plaque noted in the right internal carotid artery. There is intimal thickening but no significant atherosclerotic plaque noted in the right external carotid artery. Antegrade flow is noted in the right vertebral artery. Left Extracranial There is intimal thickening but no significant atherosclerotic plaque noted in the left common carotid artery. There is intimal thickening but no significant atherosclerotic plaque noted in the left internal carotid artery. There is intimal thickening but no significant atherosclerotic plaque noted in the left external carotid artery. Antegrade flow is noted in the left vertebral artery. Procedure Carotid Duplex 82024. This is a Carotid Duplex examination using B-mode, color flow and specral Doppler. Exam performed in department. VL/Carotid Duplex Ultrasound Interpretation Summary No significant atherosclerotic plaque or stenosis noted in the internal carotid arteries bilaterally. Flow within the vertebral arteries is antegrade bilaterally. Ordering Physician: Wild Echols Referring Physician: Wild Echols Performed By: Maggie Gomes RVT
== END | disposition home or self-care (01) ==
PROVIDERS: PCP Family Medicine; Referring Provider Family Medicine; Visit Provider Family Medicine
DX: R42 Dizziness and giddiness (principal)
CPT/HCPCS: 93880

== ENCOUNTER → 2024-12-08 | Outpatient (CLI) | payer OTHER, SELFPAY ==
--- OUTSIDE RECORDS SUMMARY | 2024-12-08 16:54 | XMS RPT_ITS | CCD ---
Author Organization [facility] Care Team Providers Care Dcs Engineer Name Role Phone NEGINPEYTON Unavailable Unavailable DUANE STAUFFER Unavailable Unavailable Cheng Mcdaniel MD Primary Care Provider Cheng Mcdaniel MD Primary Care Provider Cheng Mcdaniel MD Primary Care Provider Cheng Mcdaniel MD Primary Care Provider Cheng Mcdaniel MD Primary Care Provider Podlogar POLYMERIZATION SUPERVISOR.Jazz COBURN Unavailable JACINTA GREEN Attending Unavailable CHENG [...] Attending Unavailable CHENG MCDANIEL Primary Care Unavailab Shasha GOLDSMITH, WILD Primary Care Physician Vaishnavi GOLDSMITH, Chalon Primary Care Provider [phone] Vaishnavi GOLDSMITH, Chalon Referring Provider [phone] Kunal Chicas Attending Provider McMorrow HEALTH SAFETY INSTRUCTOR-C, Nico Attending Provider [phone] [facility] HEALTH SAFETY INSTRUCTOR-C, Nico Referring Provider [phone] DEMARCUS LARSEN Attending Unavailable VAISHNAVI GOLDSMITH, WILD Primary Care Unavailable Vaishnavi GOLDSMITH, Chalon Primary Care Provider Oscar GOLDSMITH, Dr. Platt Referring Provider Unavailab Stacy GOLDSMITH, Dr. Platt Emergency Provider Unavailab Stacy GOLDSMITH, Dr. Platt Attending Provider Unavailab oneyda Riggins MD, Wild Attending Provider [phone] Vaishnavi GOLDSMITH, Chalon Referring Provider [phone] Vaishnavi, Chalon Primary Care Unavailable Kunal Chicas Attending Unavailable Vaishnavi, Chalon Referring Unavailable Vaishnavi, Chalon Primary Care Unavailable Vaishnavi, Chalon Attending Unavailable Vaishnavi, Chalon Referring Unavailable Vaishnavi, Chalon Referring Unavailable Vaishnavi, Chalon Primary Care Unavailable Vaishnavi, Chalon Attending Unavailable Vaishnavi, Chalon Primary Care Unavailable Vaishnavi, Chalon Attending Unavailable Vaishnavi, Chalon Referring Unavailable McMorrow, Nico Referring Unavailable Vaishnavi, Chalon Primary Care Unavailable McMorrow, Nico Attending Unavailable McMorrow, Nico Attending Unavailable Vaishnavi, Chalon Primary Care Unavailable Vaishnavi, Chalon Primary Care Unavailable OscarGiulia Attending Unavailable Oscar, Giulia Referring Unavailable Alexis Mcdaniel Primary Care Unavailable Tonie Peters Attending Unavailable Vaishnavi, Chalon Primary Care Unavailable Kunal Chicas Attending Unavailable Vaishnavi, Chalon Referring Unavailable Vaishnavi, Chalon Primary Care Unavailable Kunal Chicas Attending Unavailable Vaishnavi, Chalon Referring Unavailable Allergies Allergy Classification Reported Allergen(s) Allergy Type Date of Onset Reaction(s) Facility Penicillins (antibiotic) (1 source) Penicillins Drug Allergy [address] [place] [address] (7 sources) Angiotensin-con verting enzyme inhibitor agent; Translations: [HAROLDO INHIBITORS] Propensity to adverse reactions to drug 4 [facility] Work Phone: Comment on above: ANGIOEDEMA (6 sources) Penicillins; Translations: [PENICILLINS] Propensity to adverse reactions 2 [facility] (20 sources) Bupropion/Dieth ylpropion; Translations: [BUPROPION/DIET HYLPROPION] Propensity to adverse reactions 3 Rash [facility] (20 sources) Angiotensin-con verting enzyme inhibitor agent Propensity to adverse reactions to drug 4 Angioedema [facility] Work Phone: (20 sources) Penicillins Propensity to adverse reactions 2 [facility] (1 source) buPROPion; Translations: [bupropion] Drug Allergy [facility] (3 sources) Amoxicillin Drug Allergy 5 Upset Stomach [facility] (3 sources) Angiotensin Converting Enzyme (Haroldo) Inhibitors Allergy to substance 5 PT UNSURE OF REACTION [facility] (3 sources) Clavulanate Drug Allergy 5 Upset Stomach [facility] (3 sources) Penicillins Allergy to substance 5 Hives [facility] (1 source) Amoxicillin Drug Allergy 5 [facility] Repository (1 source) Angiotensin Converting Enzyme (Haroldo) Inhibitors Drug allergy (disorder) 5 [facility] Repository (1 source) Clavulanate Drug Allergy 5 [facility] Repository (1 source) Penicillins Drug allergy (disorder) 5 [facility] Repository Medications Current Medications Medication Drug [...] Comment on above: Take 1 capsule by mo [facility] four times daily for 5 days. cetirizine hydrochloride 10 mg oral tablet (7 sources) Histamine-1 Receptor Antagonist Start: 01-27-2024 take 1 tablet by mouth once daily Cetirizine 10 mg tablet Active 10 mg PO daily February 15, 2024 1:00am Start: 01-14-2024 End: 01-21-2024 take 1 tablet by mouth once daily cetirizine (ZYRTEC) 10 mg tablet Take 1 tablet by mouth once daily for 7 days. 7 tablet 01/14/2024 01/21/2024 Active cyclobenzaprine hydrochloride 10 mg oral tablet (14 sources) Muscle Relaxant Start: 02-15-2024 End: 06-14-2024 [...] Comment on above: Take 1 tablet by [facility] three times daily as needed for muscle [...] sources) Progestin, Estrogen, Progestin-containing Intrauterine Device Start: 4 Levonorgestrel-Ethin yl Estrad (Altavera (28)) 0.15-0.03 mg [...] EVERY DAY famotidine 20 mg oral tablet (16 sources) Histamine-2 Receptor Antagonist Start: End: take 1 tablet by mouth twice daily Famotidine (Pepcid) 20 mg tablet Active 20 mg PO TWICE A DAY December 03, 2023 12:00am fluticasone propionate 0.05 mg/actuat metered dose nasal spray (11 sources) Corticosteroid Start: Fluticasone Propionate 50 mcg/actuation spray,suspension Active INTRANASAL [...] number: 1 methocarbamol 500 mg oral tablet (4 sources) Muscle Relaxant Start: 02-15-20 take 2 [...] 01/02/2024 Active methylPREDNISolone 4 mg oral tablet (5 sources) Corticosteroid Start: 06-14-2024 take 1 tablet by mouth once Methylprednisolone (Medrol (Ifrah)) 4 mg tablets,dose pack Active 0 PO per package directions June 14, 2024 12:00am PO PER PKG DIR Start: 08-04-2023 End: 08-10-2023 methylPREDNISolone (MEDROL, IFRAH,) 4 mg Dose-Pack Follow dosing instructions, take with food. 21 tablet 0 08/04/2023 08/10/2023 Active [facility] Medication (1 source) Start: 02-23-2017 [facility] Medicatio n 0 Refill(s) Start Date: 02/23/17 [...] days. phentermine hydrochloride 37.5 mg oral tablet (3 sources) Sympathomimetic Amine Anorectic Start: take 1 tablet [...] on above: Take 1 tablet by ricardo twice daily for 10 days. Take 1 tablet by ricardo two times a day for 7 days. [...] oral solution (2 sources) alpha-Adrenergic Agonist, Uncompetitive I-oalxtt-J-aspartate Receptor Antagonist, Sigma-1 Agonist Start: 04-25-2021 End: 08-08-2021 take 5-10 mL by mouth every six hours as needed Qskaviifezmblxg-Mqzwtbdib-EK (BROMFED DM) 2-30-10 mg/5 mL syrup Take [...] 1 TABLET BY RICARDO TH EVERY DAY [id number] 0.3 ml EPINEPHrine 1 mg/ml auto-injector (1 source) alpha-Adrenergic Agonist, beta-Adrenergic Agonist, Catecholamine Start: EpiPen 2-Ifrah 0.3 mg injectable kit Dose [...] above: Take 1 tablet by ricardo th every 8 hours as needed. predniSONE 20 mg oral tablet (4 sources) Start: End: take 2 tablets by mouth once daily Prednisone 20 mg tablet Discontinued 40 mg PO DAILY 8 December 03, 2023 12:00am February 15, 2024 [...] [Encounter for issue of repeat prescription] Episodic Conditions associated with dizziness or vertigo (1 source) Dizziness and giddiness; Translations: [Dizziness and giddiness] Onset: 11-23-2024 Episodic Contraceptive and procreative management (2 sources) Oral contraception; Translations: [Encounter for surveillance of contraceptive pills] Episodic E Codes: Fall (2 sources) Fall; Translations: [Unspecified fall, initial encounter] 11-01-2024 Episodic Malaise and fatigue (3 sources) Fatigue; Translations: [Other fatigue] 11-16-2022 Episodic Nausea and vomiting (1 source) Nausea; Translations: [Nausea] Episodic Osteoarthritis (20 sources) Osteoarthritis; Translations: [Unspecified osteoarthritis, unspecified site] Onset: 07-02-2017 07-02-2017 Chronic Other aftercare (8 sources) Patient encounter status; Translations: [Other fci (current) drug therapy] Episodic Other ear and [...] and finger(s), initial encounter] 03-07-2020 Episodic Other injuries and conditions due to external causes (1 source) Encounter for examination and observation following other accident; Translations: [Encounter for examination and observation following other accident] Onset: 11-07-2024 Episodic Other lower respiratory disease (5 sources) Cough; Translations: [Cough] Episodic Other non-traumatic joint disorders (20 sources) Pain in right knee; Translations: [Pain in joint, lower leg] Onset: 11-13-2019 11-13-2019 Episodic Other non-traumatic joint disorders (3 sources) Hip pain; Translations: [Pain in right hip] [...] uteri] Onset: 10-04-2023 Episodic Other skin disorders (3 sources) Tongue swelling; Translations: [Localized swelling, mass and lump, head] 12-11-2023 Episodic Other upper respiratory disease (1 source) Congestion of nasal sinus; Translations: [Nasal congestion] 01-14-2024 Episodic Other upper respiratory infections (3 sources) Acute upper respiratory infection; Translations: [Acute upper respiratory infection, unspecified] 12-02-2022 Episodic Residual codes; unclassified (3 sources) H/O: Disorder; Translations: [Personal history of other specified conditions] 12-11-2023 Episodic Skin and subcutaneous tissue infections (2 sources) Infection of skin; Translations: [Local infection of the skin and subcutaneous tissue, unspecified] Episodic Spondylosis; intervertebral disc disorders; other back problems (1 source) Acute low back pain; Translations: [Acute left-sided low back pain without sciatica] Episodic Superficial injury; contusion (4 sources) Blister of hand without infection; Translations: [...] Resolved: 07-02-2017 07-02-2017 Chronic Sprains and strains (14 sources) Strain of neck muscle; Translations: [Strain of muscle, fascia and tendon at neck level, initial encounter] Onset: 06-14-2024 Episodic Results Test Name Value Interpretation Reference Range Facility Duplex ultrasound of carotid artery reportOrdered By: Krish Durbin on 11-19-2024 Study report [facility] [address] [place] [address] Carotid Duplex Ultrasound 11/17/24 1458 MR#: [id number] Acct: [id number] Name: MICHAELLE MAYS Rep #:[id number] : 1980 44 From: Krish Durbin MD Attending Dr: Dr. Wild Riggins MD S tatus: REG CLI Ordering Dr: Wild Riggins MD Date: Location: CVS Sex: F C Admitted: Reason For Study Reason For Study: Dizziness and giddiness Rt. Velocities/BP Lt. Velocities/BP Prox CCA 139.4/24.3 cm/sec. Prox CCA 141.2/22.5 cm/sec. Mid CCA 143/29.8 cm/sec. Mid CCA 122.9/26.1 cm/sec. Dist CCA 97.4/26.1 cm/sec. Dist CCA 104.7/24.3 cm/sec. Prox ICA 72.8/17.6 cm/sec. Prox ICA 63/19 cm/sec. Mid ICA 117.4/31.6 cm/sec. Mid ICA 76.2/26.7 cm/sec. Dist ICA 84.6/27.9 cm/sec. Dist ICA 66.3/24.5 cm/sec. Rt. ICA/CCA = 0.82. Lt. ICA/CCA = 0.62. Prox ECA 104.7/15.2 cm/sec. Prox ECA 97.1/11.3 cm/sec. Rt. Vert. 54.2/14.6 cm/sec. Lt. Vert. 71.8/12.4 cm/sec. Right Extracranial There is intimal thickening but no significant atherosclerotic plaque noted in the right common carotid artery. There is intimal thickening but no significant atherosclerotic plaque noted in the right internal carotid artery. There is intimal thickening but no significant atherosclerotic plaque noted in the right external carotid artery. Antegrade flow is noted in the right vertebral artery. Left Extracranial There is intimal thickening but no significant atherosclerotic plaque noted in the left common carotid artery. There is intimal thickening but no significant atherosclerotic plaque noted in the left internal carotid artery. There is intimal thickening but no significant atherosclerotic plaque noted in the left external carotid artery. Antegrade flow is noted in the left vertebral artery. Procedure Carotid Duplex 75717. This is a Carotid Duplex examination using B-mode, color flow and specral Doppler. Exam performed in department. VL/Carotid Duplex Ultrasound Interpretation Summary No significant atherosclerotic plaque or stenosis noted in the internal carotid arteries bilaterally. Flow within the vertebral arteries is antegrade bilaterally. Ordering Physician: Wild Riggins Referring Physician: Wild Riggins Performed By: Maggie Gomes Aniyah 11/19/24 230 Date _ Krish Durbin MD CC: Dr. Wild Riggins MD ~ Date Dictated: 11/17/241457 Date Transcribed: 11/19/242302 Ventilation Worker: Signed [facility] Other Carotid Duplex Ultrasoundon 11-17-2024 Carotid Duplex Ultrasound [facility] [address] [place] [address] Carotid Duplex Ultrasound 11/17/241457 MR#: [id number] Acct: [id number] Name: MICHAELLE MAYS Rep #: [id number] : 1980 44 From: Krish Durbin MD Attending Dr: Dr. Wild Riggins MD Status: REG C Ordering Dr: Wild Riggins MD Date: 11/17/24 Location: CVS Sex: F C Admitted: Reason For Study Reason For Study: Dizziness and giddiness Rt. Velocities/BP Lt. Velocities/BP Prox CCA 139.4/24.3 cm/sec. Prox CCA 141.2/22.5 cm/sec. Mid CCA 143/29.8 cm/sec. Mid CCA 122.9/26.1 cm/sec. Dist CCA 97.4/26.1 cm/sec. Dist CCA 104.7/24.3 cm/sec. Prox ICA 72.8/17.6 cm/sec. Prox ICA 63/19 cm/sec. Mid ICA 117.4/31.6 cm/sec. Mid ICA 76.2/26.7 cm/sec. Dist ICA 84.6/27.9 cm/sec. Dist ICA 66.3/24.5 cm/sec. Rt. ICA/CCA = 0.82. Lt. ICA/CCA = 0.62. Prox ECA 104.7/15.2 cm/sec. Prox ECA 97.1/11.3 cm/sec. Rt. Vert. 54.2/14.6 cm/sec. Lt. Vert. 71.8/12.4 cm/sec. Right Extracranial There is intimal thickening but no significant atherosclerotic plaque noted in the right common carotid artery. There is intimal thickening but no significant atherosclerotic plaque noted in the right internal carotid artery. There is intimal thickening but no significant atherosclerotic plaque noted in the right external carotid artery. Antegrade flow is noted in the right vertebral artery. Left Extracranial There is intimal thickening but no significant atherosclerotic plaque noted in the left common carotid artery. There is intimal thickening but no significant atherosclerotic plaque noted in the left internal carotid artery. There is intimal thickening but no significant atherosclerotic plaque noted in the left external carotid artery. Antegrade flow is noted in the left vertebral artery. Procedure Carotid Duplex [id number]. This is a Carotid Duplex examination using B-mode, color flow and specral Doppler. Exam performed in department. VL/Carotid Duplex Ultrasound Interpretation Summary No significant atherosclerotic plaque or stenosis noted in the internal carotid arteries bilaterally. Flow within the vertebral arteries is antegrade bilaterally. Ordering Physician: Wild Riggins Referring Physician: Wild Riggins Performed By: Maggie Gomes RVT 11/19/24 2303 Date Krish Durbin MD CC: Dr. Wild Riggins MD Date Dictated: 11/17/24 1458 Date Transcribed: 11/19/24 2303 Ventilation Worker: Signed Normal [facility] Brain/Head without Contrasto n 11-01-2024 Brain/Head without Contrast [facility] Imaging Services [address] [place], [place] [address] Brain/Head without Contrast MR#: [id number] Acct: [id number] Name: MICHAELLE MAYS Rep #: [id number] : 1980 F 44 From: Leo Mcgovern MD PCP: Dr. Wild Riggins MD Status: REG ER Study: Brain/Head without Contrast Date of Exam: 10/20 06/13 Exam# [id number] Ordering Dr: Giulia Moore MD EXAM: CT BRAIN/HEAD WITHOUT CONTRAST; CT SPINE CERVICAL WITHOUT CONTRAST CLINICAL HISTORY: FALL, NECK PAIN COMPARISON: None. TECHNIQUE: Noncontrast CT images of the head and cervical spine with multiplanar reconstructions. Dose reduction techniques were used including intermediate exposure control (AEC),iterative reconstruction technique, and/or mA and/or KV dose adjustments based on patient's size. FINDINGS: HEAD: No acute intracranial hemorrhage, extra-axial collection, mass effect or evidence of acute infarct. Ventricles and subarachnoid spaces are normal in size. Orbital contents are unremarkable. Intact skull base and calvarium. Clear paranasal sinuses and mastoid air cells. CERVICAL SPINE: No acute fracture or subluxation. Straightening of the cervical lordosis may be positional or can be seen with muscle spasm. Minimal degenerative changes are present most pronounced at C5-6. No prevertebral soft tissue swelling. Unremarkable paravertebral soft tissues. CT/Brain/Head without Contrast IMPRESSION: No acute intracranial or cervical spine traumatic findings. Reading Location: [facility] CC: Dr. Wild Riggins MD; Dr. Giulia Moore MD Ventilation Worker: Signed Normal [facility] Emergency Department Summary on 11-01-2024 Emergency Department Summary [facility] Medical Records Department [address] [place] [address] Emergency Department Summary 11/01/24 MR#: [id number] Acct: [id number] Name: MICHAELLE MAYS Rep #: [id number] : 1980 44 From: Giulia Moore MD PCP: Dr. Wild Riggins MD Status:DEP ER Location: ED HPI HPI - Fall History of Present Illness Chief Complaint: Fall Narrative Narrative: Patient is a 44-year-old female presenting to the emergency department after a fall. Patient has a past medical history of cervical strain and thoracic myofascial strain. States that she finished having dinner while she was sitting in a recliner watching TV when she stood up and then stretched. She states that she felt a little lightheaded and then fell over onto ottoman striking the left side of her face. She did land on carpet. She states she never lost consciousness she just felt lightheaded and lost her balance. She denies any chest pain, shortness of breath, palpitations, dizziness. She reports she is having neck pain now. [facility] Medical History Thoracic myofascial strain Cervical strain Right hip pain Knee pain, right Angio-edema Home Medications ???Medication ???Instructions ???Recorded ???Last Taken ???Type doxepin 25 mg capsule 25 mg PO QHS 12/03/23 Unknown Hist ory famotidine 20 mg tablet (Pepcid) 20 mg PO BID #10 tabs 12/03/23 Unk nown Rx montelukast 10 mg tablet 10 mg PO QHS 12/03/23 12/02/23 His tory (Singulair) cetirizine 10 mg tablet 10 mg PO QDAY 02/15/24 Unknown His tory fluticasone propionate 50 intranasal 02/15/24 Unknown Histor y mcg/actuation nasal spray,suspension levonorgestrel 0.15 mg-ethinyl 1 tab PO QDAY 02/15/24 Unknown His tory estradiol 0.03 mg tablet (Altavera (28)) methocarbamol 500 mg tablet 1,000 mg PO BID 02/15/24 Unknown H istory phentermine 37.5 mg tablet 37.5 mg PO QDAY 02/15/24 Unknown H istory cyclobenzaprine 10 mg tablet 10 mg PO HS PRN muscle spasm #14 0 06/14/24 Unknown Rx tabs methylprednisolone 4 mg tablets in See Rx Instructions PO PER PKG D IR 06/14/24 Unknown Rx a dose pack (Medrol (Ifrah)) #21 tabs Allergy/AdvReac Type Severity Reaction Status Date / Time amoxicillin (From Augmentin) Allergy Intermediate Upset Verified 11/01/24 19:26 Stomach clavulanic acid (From Allergy Intermediate Upset Verified 11/01/24 19:26 Augmentin) Stomach HAROLDO Inhibitors Allergy Unknown PT UNSURE Verified 11/01/24 19:26 OF REACTION Penicillins (PCN) Allergy Hives Verified 11/01/24 19:26 Surgical History Hx of cholecystectomy Social History household members: spouse Smoking Status: Former smoker ROS ROS ED ROS Narrative see HPI EXAM Physical Exam Narrative Exam Narrative: Vital signs: Reviewed General: Alert and oriented. No acute distress HEENT: Head is normocephalic and atraumatic. Midface nontender to palpation. There is a superficial abrasion to the left cheek bone. No laceration. No oral trauma. No pain with EOM. pupils equal round and reactive. Nares are patent. Oropharynx and throat exams normal. Neck: Supple without lymphadenopathy nontender. There is midline cervical spinal tenderness to palpation. No step-offs or deformities. Cardiovascular: Regular rate and rhythm, no murmurs. No rubs or gallops. Normal S1 and S2 Respiratory: Clear to auscultation bilaterally. No wheezes, rales, rhonchi Abdominal: Soft and nontender. Normal bowel sounds. No guarding or rebound. Nonsurgical abdomen Extremities: No tenderness. No bruising. Normal range of motion. Normal sensation. No midline thoracic or lumbar spinal tenderness to palpation. No step-offs or deformities. Hips are stable and nontender to palpation. Extremities are atraumatic and nontender to palpation with normal range of motion. Skin: No rash or redness. Neurological: Cranial nerves II through XII are grossly intact. Normal strength and sensation. Normal cerebellar function The rest of the physical exam is unremarkable Const Vital Signs: 11/01/24 19:24 11/01/24 19:52 11/01/24 21:14 Temperature 98.0 F 98.1 F Temperature Source Temporal Pulse Rate 83 80 Respiratory Rate 17 15 Respiratory Effort Normal Non-Labored Respiratory Depth Normal Blood Pressure 146/78 H 138/75 H Blood Pressure Mean 100 96 Pulse Ox 100 100 Oxygen Delivery Method Room Air Room Air MDM MDM MDM Narrative Medical decision making narrative: Patient is a 44-year-old female presenting to the emergency department for a fall. Patient was seen and examined. Vitals are stable. Patient resting bed comfortably no acute distress. Patient given Tylenol (more content not included)... Normal [facility] Spine Cervical without Contr ason 11-01-2024 Spine Cervical without Contras [facility] Imaging Services [address] [place] [address] Spine Cervical without Contras MR#: [id number] Acct: [id number] Name: MICHAELLE MAYS Rep #: [id number] : 1980 F 44 From: Leo Mcgovern MD PCP: Dr. Wild Riggins MD Status: REG ER Study: Spine Cervical without Contras Date of Exam: 0 11/01/24 Exam# [id number] Ordering Dr: Giulia Moore MD EXAM: CT BRAIN/HEAD WITHOUT CONTRAST; CT SPINE CERVICAL WITHOUT CONTRAST CLINICAL HISTORY: FALL, NECK PAIN COMPARISON: None. TECHNIQUE: Noncontrast CT images of the head and cervical spine with multiplanar reconstructions. Dose reduction techniques were used including intermediate exposure control (AEC),iterative reconstruction technique, and/or mA and/or KV dose adjustments based on patient's size. FINDINGS: HEAD: No acute intracranial hemorrhage, extra-axial collection, mass effect or evidence of acute infarct. Ventricles and subarachnoid spaces are normal in size. Orbital contents are unremarkable. Intact skull base and calvarium. Clear paranasal sinuses and mastoid air cells. CERVICAL SPINE: No acute fracture or subluxation. Straightening of the cervical lordosis may be positional or can be seen with muscle spasm. Minimal degenerative changes are present most pronounced at C5-6. No prevertebral soft tissue swelling. Unremarkable paravertebral soft tissues. CT/Spine Cervical without Contras IMPRESSION: No acute intracranial or cervical spine traumatic findings. Reading Location: [facility] CC: Dr. Wild Riggins MD; Dr. Giulia Moore MD Ventilation Worker: Signed Normal [facility] Breast imaging reportOrdered By: Brittani Short on 10-10-2024 Study report [facility] Imaging Services [address] [place], [place] [address] SCRN MAMM (CAD)W/CHRISTOPHER BILAT MR#: [id number] Acct: [id number] Name: MICHAELLE MAYS Rep #: [id number] : 1980 F 44 From: Mati Ann MD PCP: Dr. Wild Riggins MD Status: REG CL I Study:SCRN MAMM (CAD)W/CHRISTOPHER BILAT Date of Exa m: 10/09/24 Exam# [id number] Ordering Dr: Nico Osuna NP HEALTH SAFETY INSTRUCTOR-C EXAM: SCRN MAMM (CAD)W/CHRISTOPHER BILAT DATE: 10/09/2024 [...] be mailed to the patient. Reading Location: [id number] CC: Nico Osuna; Dr. Wild Riggins MD ~ Ventilation Worker: Signed [facility] SCRN MAMM (CAD)W/CHRISTOPHER BILATo n 10-09-2024 SCRN MAMM (CAD)W/CHRISTOPHER BILAT [facility] Imaging Services [address] [place] [address] SCRN MAMM (CAD)W/CHRISTOPHER BILAT MR#: [id number] Acct: [id number] Name: MICHAELLE MAYS Rep #: [id number] : 1980 F 44 From: Brittani Ugalde i, MD PCP: Dr. Wild Riggins MD Status: REG CLI Study: SCRN MAMM (CAD)W/CHRISTOPHER BILAT Date of Exam: 09/20 04/15 Exam# [id number] Ordering Dr: Nico Osuna NP HEALTH SAFETY INSTRUCTOR -C EXAM: SCRN MAMM (CAD)W/CHRISTOPHER BILAT DATE: 10/09/2024 [...] be mailed to the patient. Reading Location: [id number] CC: Nico BROOKS NP-Annia Osuna; Dr. Wild Riggins MD Ventilation Worker: Signed Normal [facility] - Microbiology an d Antimicrobial susceptibilityOrdered By: Kunal Adams on 06-27-2024 SARS-CoV-2 (COVID-19) RNA VIVIAN+probe Ql (Unsp spec) Not detected [facility] No Panel InformationOrdered By: Kunal Adams on 06-27-2024 Influenza Types A,B Rapid (Clinic) Not detected [facility] Urgent Care Visit Reporton 0 06-27-2024 Urgent Care Visit Report [facility] [address], [address] [place] [address] OFFICE VISIT Date of Service: 06/27/24 MR#: [id number] Acct: [id number] Name: MICHAELLE MAYS Rep #: [id number] : 1980 Provider: SHIN Power Age/Sex: 44/F Location: [facility] Status: Signed Intake Vital Signs 02/15/24 11:17 [...] 06/14/24 06/27/24 Rx a dose pack (Medrol (Ifarh)) #21 tabs Nurse's Note: Patient has fatigue and she feels run down. Patient states she is hot and cold but no fever. Patient states every once in a while her stomach is upset. [facility] Medical History (Updated 06/14/24 @ 11:39 by [...] contacts recently dx???d w/ similar complaints. No wyze-swk-ncnogej taken to assist. No other associated symptoms [...] normal Psych (more content not included)... 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 denies fall, trauma, new injury [facility] Medical History (Updated 06/14/24 @ 11:39 by Kunal Adams PA, PA) Thoracic myofascial strain Cervical strain Right [...] or mid low back pain upon questioning. Dwii-eou-dxgzfru Tylenol with minimal benefit, and states she is unable to take NSAIDs due to topical Voltaren use for her knees. No other associated symptoms and no other alleviating/aggravati ng factors. ROS Const Constitutional: No other (As above) Exam Const General: cooperative, healthy appearing and no acute distress Orientation: alert and awake [facility] Head: normal to inspection Ears: hearing grossly [...] the above. This note was generated with [employer] dictation software. It may contain incorrect words, spelling, and punc (more content not included)... Normal [facility] PAP IG HPV HR APTIMAon 05-18 ADEQ Comment Normal . [facility] Comment on above: Order Comment: Octavio boateng Comment: [id number] Comment: Source.............Cervix;EndocervixSpecimen Comment: No. of containers..01 ThinPrep Vial Result Comment: Sati sfactory for evaluation. Endocervical and/or squamous metaplastic cells (endocervical component) are present. Performed By: #### L 7400.0377 ####[facility] [address] [place], [address] COMM . Normal . [facility] Comment on above: Order Comment: Octavio boateng Comment: [id number] Comment: Source.............Cervix;EndocervixSpecimen Comment: No. of containers..01 ThinPrep Vial Performed By: #### L 7400.0377 ####[facility] [address] [place], [place], [address] COMMENT Comment Normal . [facility] Comment on above: Order Comment: Speci men Comment: [id number] Comment: Source.............Cervix;EndocervixSpecimen Comment: No. of containers..01 ThinPrep Vial Result Comment: This liquid based ThinPrep(R) pap test was screened with the use of an image guided system. Performed By: #### L 7400.0377 ####[facility] [address] [place], [place], [address] DIAG Comment Normal . [facility] Comment on above: Order Comment: Speci men Comment: [id number] Comment: Source.............Cervix;EndocervixSpecimen Comment: No. of containers..01 ThinPrep Vial Result Comment: NEGA TIVE FOR INTRAEPITHELIAL LESION OR MALIGNANCY. Performed By: #### L 7400.0377 ####[facility] [address] [place], [place], [address] HPV APTIMA, HR Negative Normal Negative [facility] Comment on above: Order Comment: Speci men Comment: [id number] Comment: Source.............Cervix;EndocervixSpecimen Comment: No. of containers..01 ThinPrep Vial Result Comment: This nucleic acid amplification test detects fourteen high- risk HPV types (16,18,31,33,35,39,45,51,52,56,58,59,66,68) without differentiation. Performed at: [address] [id number] Solid Waste Analyst: Jackie Finn MD, Phone: [phone] Performed at: [address] [id number] Solid Waste Analyst: Jackie Finn MD, Phone: [phone] Performed By: #### L 7400.0377 ####[facility] [address] [place], [place], [address] PAPSMR Comment Normal . [facility] Comment on above: Order Comment: Speci men Comment: [id number] Comment: Source.............Cervix;EndocervixSpecimen Comment: No. of containers..01 ThinPrep Vial Result Comment: The Pap smear is a screening test designed to aid in the detection of premalignant and malignant conditions of the uterine cervix. It is not a diagnostic procedure and should not be used as the sole means of detecting cervical cancer. Both false-positive and false-negative reports do occur. Performed By: #### L 7400.0377 ####[facility] [address] [place], [place], [address] PERFORM Comment Normal . [facility] Comment on above: Order Comment: Speci men Comment: [id number] Comment: Source.............Cervix;EndocervixSpecimen Comment: No. of containers..01 ThinPrep Vial Result Comment: Reyna Zuniga, Screening Technician (ASCP) Performed By: #### L 7400.0377 ####[facility] [address] [place], [place], [address] ALLERGEN SKIN TEST-PENICILLI Non 03-02-2024 ANTIBIOTIC PERCUTANEOUS [...] = 0 mm F = 0 mm [facility] [id number] Lot [id number] Exp 06/19/2025 PREPEN -(benzylpenicilloyl polylysine) full strength P: W = 0 mm F = 0mm ID: W = 0 mm F = 0 mm [facility] 50213-362-56 Lot [id number] Exp 06/19/25 HISTAMINE- positive control (Histamine base 6mg/ml)for Prick and 0.1 mg/ml for intradermal P: W = 9 mm F = 45+ mm [facility] C1 ESTERASE INHIB FUon 03-02 C1 ESTERASE INHIBITOR FUNCTION 106 % Normal >=41 [facility] Comment on above: Order Comment: Speci men Type: BLOOD SPECIMENOrdering Facility: [facility] Address: [address] [place] [address] Result Comment: The concentration of functional C1 esterase inhibitor (C1-INH) is reported as the percentage of the mean level in normal specimens. Concentrations greater than or equal to 68 percent mean normal are considered normal. INTERPRETIVE INFORMATION: R-8-Itixvpfp Inhib. Functional 68% or greater ........ Normal 41% - 67% ............. Indeterminate 40% or less ........... Abnormal Performed By: [employer] [address] [place] [address] Manager Money: Kota Piper MD, PhD CLIA Number: [id number] Performed By: #### C 1EFUN ####[facility] LABORATORIESCLIA [id number] [place] [id number] C1 ESTERASE INHIBITon 2023 C1 ESTERASE INHIBIT 35 mg/dL Normal 21-38 [facility] Comment on above: Order Comment: Speci men Type: BLOOD SPECIMENOrdering Facility: [facility] Address: [address] [place] [address] Result Comment: Perf ormed By: [facility] [address] [place] [id number] Manager Money: Kota Piper MD, PhD CLIA Number: [id number] Performed By: #### C 1EST ####[facility] LABORATORIESCLIA [id number] [place] [id number] C1Q COMPLEMENT PROTon 2023 C1Q COMPLEMENT PROTEIN 153 ug/mL Normal 109-242 Cl [facility] Comment on above: Order Comment: Speci men Type: BLOOD SPECIMENOrdering Facility: [facility] Address: [address] [place] [address] Result Comment: Perf ormed By: [facility] [employer] [place] [address] Manager Money: Kota Piper MD, PhD CLIA Number: [id number] Performed By: #### C OMC1Q ####[facility] LABORATORIESCLIA [id number] [place] [address] C4 SerPl-mCncon 03-02-2024 Complement C4 [Mass/Vol] 29 mg/dL Normal 13-46 [facility] Comment on above: Order Comment: Speci men Type: BLOOD SPECIMENOrdering Facility: [facility] Address: [address] [place] [address] Performed By: #### 2 4323-8, 4498-2 ####[facility] LABCLIA [id number] [place] [address] [place] CBC W Auto Differential pane l (Bld)on 03-02-2024 Basophils (Bld) [#/Vol] 0.05 10*3/uL [facility] Basophils/100 WBC (Bld) 0.6 % [facility] Differential cell count method Nom (Bld) Auto [facility] Eosinophils (Bld) [#/Vol] 0.06 10*3/uL [facility] Eosinophils/100 WBC (Bld) 0.7 % [facility] Erythrocyte distribution width (RBC) [Ratio] 13.2 % 11.5 - 15.0 % [facility] Hematocrit (Bld) [Volume fraction] 45.2 % 36.0 - 46.0 % [facility] Hemoglobin (Bld) [Mass/Vol] 14.8 g/dL 11.5 - 15.5 g/dL [facility] Immature granulocytes (Bld) [#/Vol] [facility] Immature granulocytes/100 WBC (Bld) 0.2 % [facility] Lymphocytes (Bld) [#/Vol] 2.70 10*3/uL [facility] Lymphocytes/100 WBC (Bld) 31.8 % [facility] MCH (RBC) [Entitic mass] 32.2 pg 26. 0 - 34.0 pg [facility] MCHC (RBC) [Mass/Vol] 32.7 g/dL 30.5 - 36.0 g/dL [facility] MCV (RBC) [Entitic vol] 98.5 fL 80.0 - 100.0 fL [facility] Monocytes (Bld) [#/Vol] 0.62 10*3/uL [facility] Monocytes/100 WBC (Bld) 7.3 % [facility] Neutrophils (Bld) [#/Vol] 5.03 10*3/uL [facility] Neutrophils/100 WBC (Bld) 59.4 % [facility] Nucleated RBC (Bld) [#/Vol] [facility] Nucleated RBC/100 WBC (Bld) [Ratio] 0.0 % /100 WBC [facility] Platelet mean volume (Bld) [Entitic vol] 10.6 fL 9.0 - 12.7 fL [facility] Platelets (Bld) [#/Vol] 370 10*3/uL [facility] RBC (Bld) [#/Vol] 4.59 10*6/uL 3.90 - 5.2 0 m/uL [facility] WBC (Bld) [#/Vol] 8.48 10*3/uL [facility] Basophils (Bld) [#/Vol] 0.05 10*3/uL Normal <0.11 [facility] Comment on above: Order Comment: Speci men Type: BLOOD SPECIMENOrdering Facility: [facility] Address: [address] [place] [address] Performed By: #### 5 7021-8 ####[facility] LABCLIA [id number] [address] [facility] Basophils/100 WBC (Bld) 0.6 % Normal [facility] Comment on above: Order Comment: Speci men Type: BLOOD SPECIMENOrdering Facility: [facility] Address: [address] [place] [address] Performed By: #### 5 7021-8 ####[facility] LABCLIA [id number] [place] [address] [place] Differential cell count method Nom (Bld) Auto Normal [facility] Comment on above: Order Comment: Speci men Type: BLOOD SPECIMENOrdering Facility: [facility] Address: [address] [place] [address] Performed By: #### 5 7021-8 ####[facility] LABCLIA [id number] [place] [address] [place] Eosinophils (Bld) [#/Vol] 0.06 10*3/uL Normal <0.46 [facility] Comment on above: Order Comment: Speci men Type: BLOOD SPECIMENOrdering Facility: [facility] Address: [address] [place] [address] Performed By: #### 5 7021-8 ####[facility] LABCLIA [id number] [place] [address] [place] Eosinophils/100 WBC (Bld) 0.7 % Normal [facility] Comment on above: Order Comment: Speci men Type: BLOOD SPECIMENOrdering Facility: [facility] Address: [address] [place] [address] Performed By: #### 5 7021-8 ####[facility] LABCLIA [id number] [place] [address] [place] Erythrocyte distribution width (RBC) [Ratio] 13.2 % Normal 11.5-15.0 [facility] Comment on above: Order Comment: Speci men Type: BLOOD SPECIMENOrdering Facility: [facility] Address: [address] [place] [address] Performed By: #### 5 7021-8 ####[facility] LABCLIA [id number] [place] [address] [place] Hematocrit (Bld) [Volume fraction] 45.2 % Normal 36.0-46.0 [facility] Comment on above: Order Comment: Speci men Type: BLOOD SPECIMENOrdering Facility: [facility] Address: [address] [place] [address] Performed By: #### 5 7021-8 ####[facility] LABCLIA [id number] [place] [address] [place] Hemoglobin (Bld) [Mass/Vol] 14.8 g/dL Normal 11.5-15.5 [facility] Comment on above: Order Comment: Speci men Type: BLOOD SPECIMENOrdering Facility: [facility] Address: [address] [place] [address] Performed By: #### 5 7021-8 ####[facility] LABCLIA [id number] [place] [address] [place] Immature granulocytes (Bld) [#/Vol] 10*3/uL Normal <0.10 [facility] Comment on above: Order Comment: Speci men Type: BLOOD SPECIMENOrdering Facility: [facility] Address: [address] [place] [address] Performed By: #### 5 7021-8 ####[facility] LABCLIA [id number] [place] [address] [place] Immature granulocytes/100 WBC (Bld) 0.2 % Normal [facility] Comment on above: Order Comment: Speci men Type: BLOOD SPECIMENOrdering Facility: [facility] Address: [address] [place] [address] Performed By: #### 5 7021-8 ####[facility] LABCLIA [id number] [place] [address] [place] Lymphocytes (Bld) [#/Vol] 2.70 10*3/uL Normal 1.00-4.00 [facility] Comment on above: Order Comment: Speci men Type: BLOOD SPECIMENOrdering Facility: [facility] Address: [address] [place] [address] Performed By: #### 5 7021-8 ####[facility] LABCLIA [id number] [place] [address] [place] Lymphocytes/100 WBC (Bld) 31.8 % Normal [facility] Comment on above: Order Comment: Speci men Type: BLOOD SPECIMENOrdering Facility: [facility] Address: [address] [place] [address] Performed By: #### 5 7021-8 ####[facility] LABCLIA [id number] [place] [address] [place] MCH (RBC) [Entitic mass] 32.2 pg Normal 26.0-34.0 [facility] Comment on above: Order Comment: Speci men Type: BLOOD SPECIMENOrdering Facility: [facility] Address: [address] [place] [address] Performed By: #### 5 7021-8 ####[facility] LABIA [id number] [place] [address] [place] MCHC (RBC) [Mass/Vol] 32.7 g/dL Normal 30.5-36.0 [facility] Comment on above: Order Comment: Speci men Type: BLOOD SPECIMENOrdering Facility: [facility] Address: [address] [place] [address] Performed By: #### 5 7021-8 ####[facility] LABIA [id number] [place] [address] [place] MCV (RBC) [Entitic vol] 98.5 fL Normal 80.0-100.0 [facility] Comment on above: Order Comment: Speci men Type: BLOOD SPECIMENOrdering Facility: [facility] Address: [address] [place] [address] Performed By: #### 5 7021-8 ####[facility] LABCLIA [id number] [place] [address] [place] Monocytes (Bld) [#/Vol] 0.62 10*3/uL Normal <0.87 [facility] Comment on above: Order Comment: Speci men Type: BLOOD SPECIMENOrdering Facility: [facility] Address: [facility] [place] [address] Performed By: #### 5 7021-8 ####[facility] LABCLIA [id number] [place] [id number] [place] Monocytes/100 WBC (Bld) 7.3 % Normal [facility] Comment on above: Order Comment: Speci men Type: BLOOD SPECIMENOrdering Facility: [facility] Address: [address] [place] [address] Performed By: #### 5 7021-8 ####[facility] LABCLIA [id number] [place] [address] [place] Neutrophils (Bld) [#/Vol] 5.03 10*3/uL Normal 1.45-7.50 [facility] Comment on above: Order Comment: Speci men Type: BLOOD SPECIMENOrdering Facility: [facility] Address: [address] [place] [address] Performed By: #### 5 7021-8 ####[facility] LABCLIA [id number] [place] [address] [place] Neutrophils/100 WBC (Bld) 59.4 % Normal [facility] Comment on above: Order Comment: Speci men Type: BLOOD SPECIMENOrdering Facility: [facility] Address: [address] [place] [address] Performed By: #### 5 7021-8 ####[facility] LABCLIA [id number] [place] [address] [place] Nucleated RBC (Bld) [#/Vol] 10*3/uL Normal <0.01 [facility] Comment on above: Order Comment: Speci men Type: BLOOD SPECIMENOrdering Facility: [facility] Address: [address] [place] [address] Performed By: #### 5 7021-8 ####[facility] LABCLIA [id number] [place] [address] [place] Nucleated RBC/100 WBC (Bld) [Ratio] 0.0 /100 WBC Normal [facility] Comment on above: Order Comment: Speci men Type: BLOOD SPECIMENOrdering Facility: [facility] Address: [address] [place] [address] Performed By: #### 5 7021-8 ####[facility] LABIA [id number] [place] [address] [place] Platelet mean volume (Bld) [Entitic vol] 10.6 fL Normal 9.0-12.7 [facility] Comment on above: Order Comment: Speci men Type: BLOOD SPECIMENOrdering Facility: [facility] Address: [address] [place] [address] Performed By: #### 5 7021-8 ####[facility] LABIA [id number] [place] [address] [place] Platelets (Bld) [#/Vol] 370 10*3/uL Normal 150-400 [facility] Comment on above: Order Comment: Speci men Type: BLOOD SPECIMENOrdering Facility: [facility] Address: [address] [place] [address] Performed By: #### 5 7021-8 ####[facility] LABIA [id number] [place] [address] [place] RBC (Bld) [#/Vol] 4.59 10*6/uL Normal 3.90-5.20 [facility] Comment on above: Order Comment: Speci men Type: BLOOD SPECIMENOrdering Facility: [facility] Address: [address] [place] [address] Performed By: #### 5 7021-8 ####[facility] LABIA [id number] [place] [address] [place] WBC (Bld) [#/Vol] 8.48 10*3/uL Normal 3.70-11.00 [facility] Comment on above: Order Comment: Speci men Type: BLOOD SPECIMENOrdering Facility: [facility] Address: [address] [place] [id number] Performed By: #### 5 7021-8 ####[facility] LABCLIA [id number] [address] [place] [id number] [id number] [place] CNOVon 03-02-2024 CNOV Office Visit (ALLEST ) MICHAELLE MAYS ([id number]) 1980 F Date Time Provider Department 03/02/24 [...] in November and went to ED in [place]. Decreased dose of doxepin to 25 mg [...] told she had to get it at [place] and was not able to do it. [...] from dox (more content not included)... Normal [facility] Comprehensive metabolic 2000 panelon 03-02-2024 Albumin [Mass/Vol] 4.1 g/dL Normal 3.9-4.9 [facility] Comment on above: Order Comment: Speci men Type: BLOOD SPECIMENOrdering Facility: [facility] Address: [address] [place] [address] Performed By: #### 2 4323-8, 4498-2 ####[facility] LABCLIA [id number] [place] [address] [place] ALP [Catalytic activity/Vol] 87 U/L Normal 34-123 [facility] Comment on above: Order Comment: Speci men Type: BLOOD SPECIMENOrdering Facility: [facility] Address: [address] [place] [address] Performed By: #### 2 4323-8, 4498-2 ####[facility] LABCLIA [id number] [place] [id number] [place] ALT [Catalytic activity/Vol] 25 U/L Normal 7-38 [facility] Comment on above: Order Comment: Speci men Type: BLOOD SPECIMENOrdering Facility: [facility] Address: [address] [place] [address] Performed By: #### 2 4323-8, 4498-2 ####[facility] LABCLIA [id number] [place] [address] [place] Anion gap [Moles/Vol] 11 mmol/L Normal 8-15 [facility] Comment on above: Order Comment: Speci men Type: BLOOD SPECIMENOrdering Facility: [facility] Address: [address] [place] [address] Performed By: #### 2 4323-8, 4498-2 ####[facility] LABCLIA [id number] [place] [address] [place] AST [Catalytic activity/Vol] 23 U/L Normal 13-35 [facility] Comment on above: Order Comment: Speci men Type: BLOOD SPECIMENOrdering Facility: [facility] Address: [address] [place], [place] [address] Performed By: #### 2 4323-8, 4498-2 ####[facility] LABCLIA [id number] [place] [id number] [place] Bilirubin [Mass/Vol] 0.3 mg/dL Normal 0.2-1.3 [facility] Comment on above: Order Comment: Speci men Type: BLOOD SPECIMENOrdering Facility: [facility] Address: [address] [place], [place] [address] Performed By: #### 2 4323-8, 4498-2 ####[facility] LABCLIA [id number] [address] [address] [place] Calcium [Mass/Vol] 9.1 mg/dL Normal 8.5-10.2 [facility] Comment on above: Order Comment: Speci men Type: BLOOD SPECIMENOrdering Facility: [facility] Address: [address] [place] [address] Performed By: #### 2 4323-8, 4498-2 ####[facility] LABCLIA [id number] [place] [address] [place] Chloride [Moles/Vol] 103 mmol/L Normal 98-107 [facility] Comment on above: Order Comment: Speci men Type: BLOOD SPECIMENOrdering Facility: [facility] Address: [address] [place] [address] Performed By: #### 2 4323-8, 4498-2 ####[facility] LABCLIA [id number] [place] [address] [place] CO2 [Moles/Vol] 28 mmol/L Normal 22-30 [facility] Comment on above: Order Comment: Speci men Type: BLOOD SPECIMENOrdering Facility: [facility] Address: [address] [place] [address] Performed By: #### 2 4323-8, 4498-2 ####[facility] LABCLIA [id number] [place] [address] [place] Creatinine [Mass/Vol] 0.89 mg/dL Normal 0.58-0.96 [facility] Comment on above: Order Comment: Speci men Type: BLOOD SPECIMENOrdering Facility: [facility] Address: [address] [place], [place] [address] Performed By: #### 2 4323-8, 4498-2 ####[facility] LABCLIA [id number] [place] [address] [place] Creatinine and Glomerular filtration rate.predicted panel (S/P/Bld) 82 mL/min/1.73m??? Normal >=60 [facility] Comment on above: Order Comment: Octavio boateng Type: BLOOD SPECIMENOrdering Facility: [facility] Address: [address] [place] [address] Result Comment: Dinora mated Glomerular Filtration Rate [...] GFR. Performed By: #### 2 4323-8, 4498-2 ####[facility] LABCLIA [id number] [place] [address] [place] Glucose [Mass/Vol] 72 mg/dL Low 74-99 [facility] Comment on above: Order Comment: Octavio boateng Type: BLOOD SPECIMENOrdering Facility: [facility] Address: [address] [place] [address] Result Comment: The [place] Diabetes Association (ADA) provides guidance for cutoff [...] Standards of Medical Care in Diabetes 2016, [place] Diabetes Association. Diabetes Care. 2016.39(Suppl 1). Performed By: #### 2 4323-8, 4498-2 ####[facility] LABCLIA [id number] [place] [address] [place] Potassium [Moles/Vol] 4.0 mmol/L Normal 3.7-5.1 [facility] Comment on above: Order Comment: Speci men Type: BLOOD SPECIMENOrdering Facility: [facility] Address: [address] [place] [address] Performed By: #### 2 4323-8, 4498-2 ####[facility] LABCLIA [id number] [place] [address] [place] Protein [Mass/Vol] 7.0 g/dL Normal 6.3-8.0 [facility] Comment on above: Order Comment: Speci men Type: BLOOD SPECIMENOrdering Facility: [facility] Address: [address] [place] [address] Performed By: #### 2 4323-8, 4498-2 ####[facility] LABCLIA [id number] [place] [address] [place] Sodium [Moles/Vol] 142 mmol/L Normal 136-144 [facility] Comment on above: Order Comment: Speci men Type: BLOOD SPECIMENOrdering Facility: [facility] Address: [address] [place] [address] Performed By: #### 2 4323-8, 4498-2 ####[facility] LABCLIA [id number] [place] [address] [place] Urea nitrogen [Mass/Vol] 10 mg/dL Normal 7-21 [facility] Comment on above: Order Comment: Speci men Type: BLOOD SPECIMENOrdering Facility: [facility] Address: [address] [place] [address] Performed By: #### 2 4323-8, 4498-2 ####[facility] LABCLIA [id number] [place] [id number] [place] INGESTION CHALLENGE TESTon [...] 1635 in stable condition with no concerns. 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 previous xrays completed at [facility] confirmed bone on bone. Has recently restablished with Dr. Riggins and placed on medication for weight loss to help alleviate right hip and knee pain and to avoid surgery. Here today requiring work note. [facility] Medical History (Updated 02/15/24 @ 11:32 by [...] told by her orthopod that she has, ijjh-wt-iuzc joints to both knees. No bilateral ankle [...] radiographs upon offering. Continue Voltaren topical, acetaminophen ipav-rud-tfinydy as needed. Cyclobenzaprine as prescribed today. Work excuse offered at patient request. Follow-up with PCP or orthopedics as previously arranged, ED sooner should symptoms worsen or any other concerns develop. Patient states acknowledging understanding of the above. This note was generated with [employer] software. It ma (more content not included)... Normal [facility] HIP, UNI W/ Pelvis 2-3 Views on 02-10-2024 HIP, UNI W/ Pelvis 2-3 Views [facility] [address] [place], [place] [id number] HIP, UNI W/ Pelvis 2-3 Views MR#: [id number] Acct: [id number] Name: MICHAELLE MAYS Rep #: [id number] : 1980 F 43 From: John Murhpy MD PCP: Dr. Wild Riggins MD Status: REG CLI Study: HIP, UNI W/ Pelvis 2-3 Views Date of Exam: Exam# [id number] Ordering Dr: Wild Riggins MD [id number] STUDY: X-RAY - PELVIS AND RIGHT HIP [...] 22:58 EST Reading Location ID and State: [address] [place] [address] Tel , Service support , CC: Dr. 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 [facility] Comment on above: Order Comment: Order Date: 01/25/24Order Info: 2254-1 - ESTN Result Comment: Prep ubertal < 40 Female Cycle: 1-10 Days 16 - 328 11-20 Days 34 - 501 21-30 Days 48 - 350 Post-Menopausal 40 - 244 Performed at: [address] [id number] Solid Waste Analyst: Cara Lopez MD, Phone: [phone] Performed By: #### L 501.3349, L100.0100, L500.4100, L500.4050, L3100.5055, L3400.0200, L506.1000 ####[facility] [address] [place], [address] Hemoglobin A1con 02-01-2024 HbA1c (Bld) [Mass fraction] 5.7 % High 3.8-5.6 [facility] Comment on above: Order Comment: FLORA Olivera ADD A1C TO BLOOD DRAWN 01/31/24 PER Result Comment: Norm al < 5.7 % Prediabetic 5.7 - 6.4 % Diabetic >or= 6.5 % Please note range changes. Performed By: #### L 501.9985, L801.2600 ####[facility] [address] [place], [place], [id number] PROGESTERONE 4317on 02-01-20 24 PROGESTERONE 0.3 ng/mL Normal . [facility] Comment on above: Order Comment: N Result Comment: Foll icular phase 0.1 - 0.9 Luteal phase 1.8 - 23.9 Ovulation phase 0.1 - 12.0 First trimester 11.0 - 44.3 Second trimester 25.4 - 83.3 Third trimester 58.7 - 214.0 Postmenopausal 0.0 - 0.1 Performed at: [facility] [id number] Solid Waste Analyst: Demarcus Zamora PhD, Phone: [phone] Performed By: #### L 5019985, L809.2602 ####[facility] [address] [place], [place], [id number] CBC W/Diff, Automatedon 01-20 Absolute Lymph 2.64 X10 3/uL Normal 0.83-4.51 [facility] Comment on above: Order Comment: Order Date: 01/25/24 Order Info: 0184-1 - CBCD Performed By: #### L 501.9520, L100.0100, L500.4100, L500.4050, L3100.5055, L3400.0200, L506.1000 #### [facility] [address] [place], [place], [address] Absolute Neut 6.8 X10 3/uL Normal 2.0-7.7 [facility] Comment on above: Order Comment: Order Date: 01/25/24 Order Info: 0184-1 - CBCD Performed By: #### L 501.9520, L100.0100, L500.4100, L500.4050, L3100.5055, L3400.0200, L506.1000 #### [facility] [address] [place], [address] Basophils/100 WBC (Bld) 0.7 % Normal 0-1 [facility] Comment on above: Order Comment: Order Date: 01/25/24 Order Info: 0184-1 - CBCD Performed By: #### L 501.9520, L100.0100, L500.4100, L500.4050, L3100.5055, L3400.0200, L506.1000 #### [facility] [address] [place], [address] Eosinophils/100 WBC (Bld) 2.1 % Normal 0-5 [facility] Comment on above: Order Comment: Order Date: 01/25/24 Order Info: 0184- - CBCD Performed By: #### L 501.9520, L100.0100, L500.4100, L500.4050, L3100.5055, L3400.0200, L506.1000 #### [facility] [address] [place], [address] Erythrocyte distribution width (RBC) [Ratio] 13.0 % Normal 11.6-14.6 [facility] Comment on above: Order Comment: Order Date: 01/25/24 Order Info: 0184-1 - CBCD Performed By: #### L 501.9520, L100.0100, L500.4100, L500.4050, L3100.5055, L3400.0200, L506.1000 #### [facility] [address] [facility] [place], [address] Hematocrit (Bld) [Volume fraction] 45.3 % Normal 37-47 [facility] Comment on above: Order Comment: Order Date: 01/25/24 Order Info: 0184-1 - CBCD Performed By: #### L 501.9520, L100.0100, L500.4100, L500.4050, L3100.5055, L3400.0200, L506.1000 #### [facility] [address] [place], [address] Hemoglobin (Bld) [Mass/Vol] 14.8 g/dL Normal 12.0-15.0 [facility] Comment on above: Order Comment: Order Date: 01/25/24 Order Info: 0184-1 - CBCD Performed By: #### L 501.9520, L100.0100, L500.4100, L500.4050, L3100.5055, L3400.0200, L506.1000 #### [facility] [address] [place], [address] IG% 0.400 Normal 0.0-0.9 [facility] Comment on above: Order Comment: Order Date: 01/25/24 Order Info: 0184- - CBCD Result Comment: IG% - Immature Granulocytes (promyelocytes, myelocytes and metamyelocytes) > 1% indicates that a LEFT SHIFT is Present. Performed By: #### L 501.9520, L100.0100, L500.4100, L500.4050, L3100.5055, L3400.0200, L506.1000 #### [facility] [address] [place], [address] Lymphocytes/100 WBC (Bld) 25.2 % Normal 19-41 [facility] Comment on above: Order Comment: Order Date: 01/25/24 Order Info: 0184-1 - CBCD Performed By: #### L 501.9520, L100.0100, L500.4100, L500.4050, L3100.5055, L3400.0200, L506.1000 #### [facility] [address] [place], [address] MCH (RBC) [Entitic mass] 31.4 pg Normal 27.0-32.0 [facility] Comment on above: Order Comment: Order Date: 01/25/24 Order Info: 0184-1 - CBCD Performed By: #### L 501.9520, L100.0100, L500.4100, L500.4050, L3100.5055, L3400.0200, L506.1000 #### [facility] [address] [place], [address] MCHC (RBC) [Mass/Vol] 32.7 g/dL Normal 32-36 [facility] Comment on above: Order Comment: Order Date: 01/25/24 Order Info: 0184-1 - CBCD Performed By: #### L 501.9520, L100.0100, L500.4100, L500.4050, L3100.5055, L3400.0200, L506.1000 #### [facility] [address] [place], [address] MCV (RBC) [Entitic vol] 96.0 fL Normal 81-99 [facility] Comment on above: Order Comment: Order Date: 01/25/24 Order Info: 0184-1 - CBCD Performed By: #### L 501.9520, L100.0100, L500.4100, L500.4050, L3100.5055, L3400.0200, L506.1000 #### [facility] [address] [place], [address] Monocytes/100 WBC (Bld) 6.7 % Normal 0-10 [facility] Comment on above: Order Comment: Order Date: 01/25/24 Order Info: 0184-1 - CBCD Performed By: #### L 501.9520, L100.0100, L500.4100, L500.4050, L3100.5055, L3400.0200, L506.1000 #### [facility] [address] [place], [address] Neutrophils/100 WBC (Bld) 64.9 % Normal 47-70 [facility] Comment on above: Order Comment: Order Date: 01/25/24 Order Info: 0184-1 - CBCD Performed By: #### L 501.9520, L100.0100, L500.4100, L500.4050, L3100.5055, L3400.0200, L506.1000 #### [facility] [address] [place], [address] Nucleated RBC (Bld) [#/Vol] 0 10*3/uL Normal 0-5 [facility] Comment on above: Order Comment: Order Date: 01/25/24 Order Info: 0184- - CBCD Performed By: #### L 501.9520, L100.0100, L500.4100, L500.4050, L3100.5055, L3400.0200, L506.1000 #### [facility] [address] [place], [address] Platelet mean volume (Bld) [Entitic vol] 10.0 fL Normal 6.2-12.0 [facility] Comment on above: Order Comment: Order Date: 01/25/24 Order Info: 0184- - CBCD Performed By: #### L 501.9520, L100.0100, L500.4100, L500.4050, L3100.5055, L3400.0200, L506.1000 #### [facility] [address] [place], [address] Platelets (Bld) [#/Vol] 376 10*3/uL Normal 150-450 [facility] Comment on above: Order Comment: Order Date: 01/25/24 Order Info: 0184-1 - CBCD Performed By: #### L 501.9520, L100.0100, L500.4100, L500.4050, L3100.5055, L3400.0200, L506.1000 #### [facility] [address] [place], [address] RBC (Bld) [#/Vol] 4.72 10*6/uL Normal 4.2-5.4 [facility] Comment on above: Order Comment: Order Date: 01/25/24 Order Info: 0184-1 - CBCD Performed By: #### L 501.9520, L100.0100, L500.4100, L500.4050, L3100.5055, L3400.0200, L506.1000 #### [facility] [address] [place], [place], [address] RDW SD 46.2 fl High 35.1-43.9 [facility] Comment on above: Order Comment: Order Date: 01/25/24 Order Info: 0184- - CBCD Performed By: #### L 501.9520, L100.0100, L500.4100, L500.4050, L3100.5055, L3400.0200, L506.1000 #### [facility] [address] [place], [place], [address] WBC (Bld) [#/Vol] 10.5 10*3/uL Normal 4.4-11.0 [facility] Comment on above: Order Comment: Order Date: 01/25/24 Order Info: 0184- - CBCD Performed By: #### L 501.9520, L100.0100, L500.4100, L500.4050, L3100.5055, L3400.0200, L506.1000 #### [facility] [address] [place], [place], [address] Comprehensive Metabolic Prof [facility] 01-31-2024 Albumin [Mass/Vol] 3.2 g/dL Normal 3.2-5.0 [facility] Comment on above: Order Comment: Order Date: 01/25/24Order Info: 0786-1 - CMPOrder Info: [id number] - LIPIDOrder Info: [id number] - TSHOrder Info: 0553-1 - FSHLH Performed By: #### L 501.9520, L100.0100, L500.4100, L500.4050, L3100.5055, L3400.0200, L506.1000 ####[facility] [address] [place], [address] Albumin/Globulin [Mass ratio] 0.8 {ratio} Low 0.9-2.4 [facility] Comment on above: Order Comment: Order Date: 01/25/24Order Info: 86-1 - CMPOrder Info: [id number] - LIPIDOrder Info: 3 - TSHOrder Info: 0553-1 - FSHLH Performed By: #### L 501.9520, L100.0100, L500.4100, L500.4050, L3100.5055, L3400.0200, L506.1000 ####[facility] [address] [place], [address] ALK P 80 U/L Normal 45-117 [facility] Comment on above: Order Comment: Order Date: 01/25/24Order Info: 785- - CMPOrder Info: - LIPIDOrder Info: 3 - TSHOrder Info: 53-1 - FSHLH Performed By: #### L 501.9520, L100.0100, L500.4100, L500.4050, L3100.5055, L3400.0200, L506.1000 ####[facility] [address] [place], [address] ALT [Catalytic activity/Vol] 19 U/L Normal 13-56 [facility] Comment on above: Order Comment: Order Date: 01/25/24Order Info: 785-1 - CMPOrder Info: [id number] - LIPIDOrder Info: 6-3 - TSHOrder Info: 0553-1 - FSHLH Performed By: #### L 501.9520, L100.0100, L500.4100, L500.4050, L3100.5055, L3400.0200, L506.1000 ####[facility] [address] [place], [address] AST [Catalytic activity/Vol] 13 U/L Low 15-37 [facility] Comment on above: Order Comment: Order Date: 01/25/24Order Info: 0786-1 - CMPOrder Info: [id number] - LIPIDOrder Info: 6-3 - TSHOrder Info: 53-1 - FSHLH Performed By: #### L 501.9520, L100.0100, L500.4100, L500.4050, L3100.5055, L3400.0200, L506.1000 ####[facility] [address] [place], [address] Bilirubin [Mass/Vol] 0.30 mg/dL Normal 0.20-1.00 [facility] Comment on above: Order Comment: Order Date: 01/25/24Order Info: 785- - CMPOrder Info: [id number] - LIPIDOrder Info: 3 - TSHOrder Info: 53- - FSHLH Result Comment: For patients on eltrombopag therapy, use of Dimension [place] TBIL is not recommended. Performed By: #### L 501.9520, L100.0100, L500.4100, L500.4050, L3100.5055, L3400.0200, L506.1000 ####[facility] [address] [place], [address] BUN/CRE 14.3 RATIO Normal 10-20 [facility] Comment on above: Order Comment: Order Date: 01/25/24Order Info: 07-1 - CMPOrder Info: [id number] - LIPIDOrder Info: 6-3 - TSHOrder Info: 53-1 - FSHLH Performed By: #### L 501.9520, L100.0100, L500.4100, L500.4050, L3100.5055, L3400.0200, L506.1000 ####[facility] [address] [place], [address] CA,Total 8.6 mg/dL Normal 8.5-10.1 [facility] Comment on above: Order Comment: Order Date: 01/25/24Order Info: 86-1 - CMPOrder Info: [id number] - LIPIDOrder Info: [id number] - TSHOrder Info: 552-1 - FSHLH Performed By: #### L 501.9520, L100.0100, L500.4100, L500.4050, L3100.5055, L3400.0200, L506.1000 ####[facility] [address] [place], [address] Chloride [Moles/Vol] 109 mmol/L High 98-107 [facility] Comment on above: Order Comment: Order Date: 01/25/24Order Info: 785-1 - CMPOrder Info: [id number] - LIPIDOrder Info: [id number] - TSHOrder Info: 552- - FSHLH Performed By: #### L 501.9520, L100.0100, L500.4100, L500.4050, L3100.5055, L3400.0200, L506.1000 ####[facility] [address] [place], [address] CO2 [Moles/Vol] 24.0 mmol/L Normal 21.0-32.0 [facility] Comment on above: Order Comment: Order Date: 01/25/24Order Info: 785-1 - CMPOrder Info: - LIPIDOrder Info: [id number] - TSHOrder Info: 552-03 - FSHLH Performed By: #### L 501.9520, L100.0100, L500.4100, L500.4050, L3100.5055, L3400.0200, L506.1000 ####[facility] [address] [place], [address] Creatinine [Mass/Vol] 1.05 mg/dL High 0.55-1.02 [facility] Comment on above: Order Comment: Order Date: 01/25/24Order Info: 86-1 - CMPOrder Info: [id number] - LIPIDOrder Info: [id number] - TSHOrder Info: 552-03 - FSHLH Result Comment: The validity of the calculated GFR GFRAA in patients over 70 years has not been determined. Clinical correlation is essential. Performed By: #### L 501.9520, L100.0100, L500.4100, L500.4050, L3100.5055, L3400.0200, L506.1000 ####[facility] [address] [place], [address] EST GFR - AA 73 mL/min Normal >60 [facility] Comment on above: Order Comment: Order Date: 01/25/24Order Info: 785- - CMPOrder Info: [id number] - LIPIDOrder Info: 3 - TSHOrder Info: 552-03 - FSHLH Result Comment: Afri can [place] GFR Calc Performed By: #### L 501.9520, L100.0100, L500.4100, L500.4050, L3100.5055, L3400.0200, L506.1000 ####[facility] [address] [place], [address] GAP 7 Normal 5-15 [facility] Comment on above: Order Comment: Order Date: 01/25/24Order Info: 785- - CMPOrder Info: [id number] - LIPIDOrder Info: 3 - TSHOrder Info: 552-03 - FSHLH Performed By: #### L 501.9520, L100.0100, L500.4100, L500.4050, L3100.5055, L3400.0200, L506.1000 ####[facility] [address] [place], [place], [address] GFR/1.73 sq M.predicted among non-blacks MDRD (S/P/Bld) [Vol rate/Area] 60 mL/min/{1.73_m2} Normal >60 [facility] Comment on above: Order Comment: Order Date: 01/25/24Order Info: 785-1 - CMPOrder Info: [id number] - LIPIDOrder Info: [id number] - TSHOrder Info: 0553-1 - FSHLH Result Comment: Non- GFR Calc Performed By: #### L 501.9520, L100.0100, L500.4100, L500.4050, L3100.5055, L3400.0200, L506.1000 ####[facility] [address] [place], [address] Globulin (S) [Mass/Vol] 4.2 g/dL Normal 2.2-4.2 [facility] Comment on above: Order Comment: Order Date: 01/25/24Order Info: 86-1 - CMPOrder Info: [id number] - LIPIDOrder Info: 3 - TSHOrder Info: 53-1 - FSHLH Performed By: #### L 501.9520, L100.0100, L500.4100, L500.4050, L3100.5055, L3400.0200, L506.1000 ####[facility] [address] [place], [address] Glucose [Mass/Vol] 121 mg/dL High 74-106 [facility] Comment on above: Order Comment: Order Date: 01/25/24Order Info: 785- - CMPOrder Info: [id number] - LIPIDOrder Info: 3 - TSHOrder Info: 53-1 - FSHLH Result Comment: Fast ing Glucose result from 100 to 125 mg/dL suggests IMPAIRED HOMEOSTASIS per A.D.A. criteria. Performed By: #### L 501.9520, L100.0100, L500.4100, L500.4050, L3100.5055, L3400.0200, L506.1000 ####[facility] [address] [place], [address] Potassium [Moles/Vol] 3.7 mmol/L Normal 3.5-5.1 [facility] Comment on above: Order Comment: Order Date: 01/25/24Order Info: 785-1 - CMPOrder Info: [id number] - LIPIDOrder Info: [id number] - TSHOrder Info: 0553-1 - FSHLH Performed By: #### L 501.9520, L100.0100, L500.4100, L500.4050, L3100.5055, L3400.0200, L506.1000 ####[facility] [address] [place], [address] Sodium [Moles/Vol] 139 mmol/L Normal 136-145 [facility] Comment on above: Order Comment: Order Date: 01/25/24Order Info: 86-1 - CMPOrder Info: [id number] - LIPIDOrder Info: 3 - TSHOrder Info: 53-1 - FSHLH Performed By: #### L 501.9520, L100.0100, L500.4100, L500.4050, L3100.5055, L3400.0200, L506.1000 ####[facility] [address] [place], [address] T PROT 7.4 g/dL Normal 6.4-8.2 [facility] Comment on above: Order Comment: Order Date: 01/25/24Order Info: 785-1 - CMPOrder Info: [id number] - LIPIDOrder Info: [id number] - TSHOrder Info: 53-1 - FSHLH Performed By: #### L 501.9520, L100.0100, L500.4100, L500.4050, L3100.5055, L3400.0200, L506.1000 ####[facility] [address] [place], [address] Urea nitrogen [Mass/Vol] 15 mg/dL Normal 7-18 [facility] Comment on above: Order Comment: Order Date: 01/25/24Order Info: 86-1 - CMPOrder Info: [id number] - LIPIDOrder Info: 3 - TSHOrder Info: 0553-1 - FSHLH Performed By: #### L 501.9520, L100.0100, L500.4100, L500.4050, L3100.5055, L3400.0200, L506.1000 ####[facility] [address] [place], [place], [address] FSH and LHon 01-31-2024 FSH 22.7 mIU/mL Normal [facility] Comment on above: Order Comment: Order Date: 01/25/24Order Info: 0786-1 - CMPOrder Info: [id number] - LIPIDOrder Info: [id number] - TSHOrder Info: 53-1 - FSHLH Result Comment: NORMAL REFERENCE RANGES FEMALE FOLLICULAR 2.3 - 12.6 mIU/mL MID-CYCLE PEAK 5.2 - 17.5 mIU/mL LUTEAL 1.7 - 12.9 mIU/mL POST-MENOPAUSAL ON MHT 5.9 - 72.8 mIU/mL NOT ON MHT 12.7 - 132.2 mlU/mL MALE 0.7 - 10.8 mIU/mL Performed By: #### L 501.9520, L100.0100, L500.4100, L500.4050, L3100.5055, L3400.0200, L506.1000 ####[facility] [address] [place], [place], [address] LH 15.6 mIU/mL Normal [facility] Comment on above: Order Comment: Order Date: 01/25/24Order Info: 0786-1 - CMPOrder Info: [id number] - LIPIDOrder Info: 3 - TSHOrder Info: 552-1 - FSHLH Result Comment: NORMAL REFERENCE RANGES FEMALE FOLLICULAR 1.9 - 26.2 mIU/mL MID-CYCLE PEAK 22.8 - 76.1 mIU/mL LUTEAL 0.6 - 16.6 mIU/mL POST-MENOPAUSAL ON MHT 1.1 - 52.4 mIU/mL NOT ON MHT 8.6 - 61.8 mIU/mL MALE 1.2 - 10.6 mIU/mL Performed By: #### L 501.9520, L100.0100, L500.4100, L500.4050, L3100.5055, L3400.0200, L506.1000 ####[facility] [id number] [place], [place], [id number] Lipid Profileon 01-31-2024 Cholesterol [Mass/Vol] 207 mg/dL High 200 [facility] Comment on above: Order Comment: Order Date: 01/25/24Order Info: [id number] - CMPOrder Info: [id number] - LIPIDOrder Info: [id number] - TSHOrder Info: [id number] - FSHLH Result Comment: <200 mg/dL Desirable 200-240 mg/dL Borderline >240 mg/dL High Risk Performed By: #### L 501.9520, L100.0100, L500.4100, L500.4050, L3100.5055, L3400.0200, L506.1000 ####[facility] [address] [facility]. [place], [place], [id number] Cholesterol in HDL [Mass/Vol] 54 mg/dL Normal [facility] Comment on above: Order Comment: Order Date: 01/25/24Order Info: [id number] - CMPOrder Info: [id number] - LIPIDOrder Info: 63 - TSHOrder Info: [id number] - FSHLH Result Comment: The drugs N-Acetylcysteine and Metamizole may falsely depress this assay. Reference Range HDL <40 mg/dL Low HDL Cholesterol HDL >or= 60 mg/dL High HDL Cholesterol Performed By: #### L 501.9520, L100.0100, L500.4100, L500.4050, L3100.5055, L3400.0200, L506.1000 ####[facility] [address] [facility]. [place], [place], [id number] Cholesterol in LDL [Mass/Vol] 133 mg/dL High 0-130 [facility] Comment on above: Order Comment: Order Date: 01/25/24Order Info: 07-1 - CMPOrder Info: [id number] - LIPIDOrder Info: 6-3 - TSHOrder Info: [id number] - FSHLH Performed By: #### L 501.9520, L100.0100, L500.4100, L500.4050, L3100.5055, L3400.0200, L506.1000 ####[facility] [address] [place], [place], [phone]) Cholesterol in VLDL [Mass/Vol] 20 mg/dL Normal 5-40 [facility] Comment on above: Order Comment: Order Date: 01/25/24Order Info: [id number] - CMPOrder Info: [id number] - LIPIDOrder Info: 3 - TSHOrder Info: [id number] - FSHLH Performed By: #### L 501.9520, L100.0100, L500.4100, L500.4050, L3100.5055, L3400.0200, L506.1000 ####[facility] [address] [place], [place], [phone]) Triglyceride [Mass/Vol] 102 mg/dL Normal [facility] Comment on above: Order Comment: Order Date: 01/25/24Order Info: [id number] - CMPOrder Info: - LIPIDOrder Info: [id number] - TSHOrder Info: [id number] - FSHLH Result Comment: The drugs N-Acetylcysteine and Metamizole may falsely depress this assay. Serum Triglycerides Reference Interval Normal <150 mg/dL Borderline high 150 - 199 mg/dL High 200 - 499 mg/dL Very High > or = 500 mg/dL Performed By: #### L 501.9520, L100.0100, L500.4100, L500.4050, L3100.5055, L3400.0200, L506.1000 ####[facility] [address] [place], [place], [phone](250) Thyroid Stim Hormone (TSH)on 01-31-2024 TSH 2.690 uIU/mL Normal 0.358-3.740 [facility] Comment on above: Order Comment: Order Date: 01/25/24Order Info: 07- - CMPOrder Info: [id number] - LIPIDOrder Info: 3 - TSHOrder Info: [id number] - FSHLH Performed By: #### L 501.9520, L100.0100, L500.4100, L500.4050, L3100.5055, L3400.0200, L506.1000 ####[facility] [address] [place], [place], [address] Vitamin D,25 Hydroxyon 01-30 Vitamin D 25-OH 44.4 ng/mL Normal [facility] Comment on above: Order Comment: Order Date: 01/25/24 Order Info: [id number] - VITD25 Result Comment: Anastasia min D 25(OH) Status Range Deficiency <20 ng/mL (50nmol/L) Insufficiency 20 - 30 ng/mL (50 - 75 nmol/L) Sufficiency 30 - 100 ng/mL (75 - 250 nmol/L) Toxicity >100 ng/mL (>250 nmol/L) Performed By: #### L 501.9520, L100.0100, L500.4100, L500.4050, L3100.5055, L3400.0200, L506.1000 #### [facility] [address] [place], [address] CNOVon 01-14-2024 [facility] TRENTNOMICHAELLE ([id number]) 1980 F Date Time Provider Department 01/14/24 10:45 AM MERLYN MEDEL [facility] During your visit today, we recorded the following information about you: Temperature Pulse Respiration Blood pressure 98.1 degrees 86/minute 18/minute 119/84 Weight Last Period 123 kg 01/03/24 Merlyn Medel PA-C 01/14/2024 12:06 PM Signed This note was created using NoteWriter. 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 Normal [facility] CNOVon 12-30-2023 CNOV Office Visit ([facility] ) MICHAELLE MAYS ([id number]) 1980 F Date Time Provider Department 12/30/23 11:15 AM ESTELITA RIVERA [facility] During your visit today, we recorded the following information about you: Temperature Pulse Respiration Blood pressure 97.8 degrees 79/minute 18/minute 147/85 Weight 123.1 kg Estelita Rivera PA 12/30/2023 11:29 AM Signed This note was created using [employer]. 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 [facility] MICHAELLE MAYS ([id number]) 1980 F Date Time Provider Department 12/06/23 [facility]CD[facility] During your visit today, we recorded the [...] Comments: augmentin Date Reviewed: 09/20/2023 Reviewed by: Lindo, Kathy, MA - Fully Assessed Reason for Visit: [...] Date 12/06/2023 Noted Resolved Adult BMI 30+ [OLM1093] 02/14/2013 07/02/2017 Angio-edema [T78.3XXA] 01/02/2014 Obesity, Class III, BMI >= 40 E66.01 [E66.01] 07/02/2017 Osteoarthritis [M19.90] 07/02/2017 Urticaria [L50.9] 04/26/2019 ASCUS of cervix with negative high risk HPV [R8*04/2019 Right knee pain [M25.561] 11/13/2019 Effusion of right knee [M25.461] 11/13/2019 Encounter Status:Closed by SELAM ORDONEZ on 12/14/23 Normal [facility] Emergency Department Summary on 12-03-2023 Emergency Department Summary [facility] Medical Records Department [address] [place] [address] Emergency Department Summary 12/03/23 MR#: [id number] Acct: [id number] Name: MICHAELLE MAYS Sincere Rep #: [id number] : 1980 43 From: Tonie Peters DO [...] foods, medications or exposures to trigger it. [facility] Medical History Angio-edema Home Medications ???Medication [...] Angioedema P (more content not included)... Normal [facility] 10-05-2023 [facility] HNO ID: [id number] Author: COORDINATOR, MAMMOGRAPHY, ? Service: ? Author Type: Physician Type: Letter Filed: 10/05/2023 08:56 Note Text: October 05, 2023 PID: [id number] Michaelle Mays [address] [place] [address] Dear Ms. Mays, We are pleased to [...] report will be kept on file at [facility] as part of your permanent medical record and are available for your continuing care. Thank you for allowing us to help in meeting your health care needs. Sincerely, Dr. Zaragoza Interpreting Radiologist [facility] (Normal over 40) Normal [facility] SCREENING W TOMOon 10-03 JEN SCREENING W CHRISTOPHER * * *Final Report* * * DATE OF EXAM: Oct 04 2023 2:56PM WRW 0582 - JEN SCREENING W CHRISTOPHER / PROCEDURE REASON: Encounter for screening mammogram for malignant neoplasm of breast * * * * Physician Interpretation * * * * RESULT: #[id number] - [facility] SCREENING W CHRISTOPHER BILATERAL DIGITAL SCREENING MAMMOGRAM [...] mammogram, 09/29/2021 mammogram, and 09/26/2020 mammogram - [facility]. The breasts are almost entirely fatty. No significant masses, calcifications, or other findings are seen in either breast. There has been no significant interval change. IMPRESSION: NEGATIVE There is no mammographic evidence of malignancy. A 1 year screening mammogram is recommended. Layne Zaragoza M.D., mc/hafsa:10/05/2023 08:56:02 Piano Player(s): RT Nanci(R)(M), [facility] letter sent: Normal over 40 Mammogram BI-RADS: [...] Health, Family Medicine, and Medical/Surgical Oncology, the [facility] has carefully reviewed the data and reached [...] their providers when to stop screening mammograms. Ventilation Worker: Hafsa Transcribe Date/Time: Oct 04 2023 2:34P Dictated by: LAYNE ZARAGOZA MD This examination was interpreted and the report reviewed and electronically signed by: LAYNE ZARAGOZA MD on Oct 05 2023 8:56AM EST [id number] Normal [facility] CNOVon 09-20-2023 CNOV Office Visit ([facility] ) MICHAELLE MAYS ([id number]) 1980 F Date Time Provider Department 09/20/23 12:45 PM ESTELITA RIVERA [facility] During your visit today, we recorded the following information about you: Temperature Pulse Respiration Blood pressure 98.2 degrees 95/minute 21/minute 100/66 Weight 119.5 kg Estelita Rivera PA 09/20/2023 12:53 PM Signed This note was created using [employer]. Subjective Michaellefatou Mays is a 43 year [...] Date 09/20/2023 Noted Resolved Adult BMI 30+ [FBM1906] 02/14/2013 07/02/2017 Angio-edema [T78.3XXA] 01/02/2014 Obesity, Class III, BMI >= 40 E66.01 [E66.01] 07/02/2017 Osteoarthritis [M19.90] 07/02/2017 Urticaria [L50.9] 04/26/2019 ASCUS of cervix with negative high risk HPV [R8*04/2019 Right knee pain [M25.561] 11/13/2019 Effusion of right knee [M25.461] 11/13/2019 Letter Text Encounter Status:Closed by ESTELITA RIVERA on 09/20/23 [facility] CNOVon 08-18-2023 CNOV Office Visit (FAMPWS ) TRENTMICHAELLE SARABIA ([id number]) 1980 F Date Time Provider Department 08/18/23 1:20 PM JAZZ WRIGHT During your visit today, we recorded the following information about you: Pulse Respiration Blood pressure Weight 81/minute 18/minute 118/70 120.8 kg Jazz Wright APRN.COTTON INSPECTOR 08/18/2023 2:37 PM Signed 08/18/2023 Patient presents with: Pain: Right arm and shoulder pain from fall in June SUBJECTIVE: This is a 43 year old that is here today for Above Complaints.. In June while carrying laundry stepped into husbands keyon yanez and fell face forward. Reports right arm landed outstretched onto some boxes. Seen in [facility] on 08/04/2023 and had xray completed. [...] No radiographic evidence of acute osseous injury. Ventilation Worker: NICOLA Transcribe Date/Time: Aug 04 2023 9:44A [...] HPV 04/2019 History of tobacco use Hives R&D Engineer Dr. Johns Morbid obesity (HCC) Plantar fasciitis [...] ER with red flag symptoms Jazz Wright APRN.COTTON INSPECTOR Prescription instructions reviewed with patient (more content not included)... Normal [facility] CNOVon 08-04-2023 CNOV Office Visit ([facility] ) MICHAELLE MAYS ([id number]) 1980 F Date Time Provider Department 08/04/23 9:15 AM ESTELITA RIVERA [facility] During your visit today, we recorded the [...] HPV 04/2019 History of tobacco use Hives R&D Engineer Dr. Johns Morbid obesity (HCC) Plantar fasciitis [...] shoulder. Normal ROM elbow and wrist. Normal travel attendants strength. Normal sensation right upper extremity. Pulses [...] discussed in detail warranting prompt ER evaluation. Jasmin (more content not included)... Normal [facility] Jose 08-04-2023 [facility] Telephone (DPQ) MICHAELLE [id number]) 1980 F Date Time Provider Department 08/04/23 DEON VALLE During your visit today, we recorded the [...] Date 08/04/2023 Noted Resolved Adult BMI 30+ [MDB3485] 02/14/2013 07/02/2017 Angio-edema [T78.3XXA] 01/02/2014 Obesity, Class III, BMI >= 40 E66.01 [E66.01] 07/02/2017 Osteoarthritis [M19.90] 07/02/2017 Urticaria [L50.9] 04/26/2019 ASCUS of cervix with negative high risk HPV [R8*04/2019 Right knee pain [M25.561] 11/13/2019 Effusion of right knee [M25.461] 11/13/2019 Encounter Status:Closed by ESSENCE CHAVES on 08/09/23 Normal [facility] XR SHLDR >/=3V AP/VERÓNICA AP/OTH R RTon [...] No radiographic evidence of acute osseous injury. [facility]ilation [facility] Transcribe Date/Time: Aug 04 2023 9:44A Dictated by : CODIE ESTES MD This examination was interpreted and the report reviewed and electronically signed by: CODIE ESTES MD on Aug 04 2023 9:47AM EST [id number] Normal [facility] XR Shoulder - right 3 Viewso n 08-04-2023 IMPRESSION: No radiographic evidence of acute osseous injury. Ventilation Worker: [facility] Transcribe Date/Time: Aug 04 2023 9:44A [...] Acromioclavicular joint intact. DIVISION OF RADIOLOGY Provider, [facility] Татьяна [facility] - 08/04/2023 * * *Final Report* * [...] No radiographic evidence of acute osseous injury. Ventilation Worker[facility] Transcribe Date/Time: Aug 04 2023 9:44A Dictated by : CODIE ESTES MD This examination was interpreted and the report reviewed and electronically signed by: CODIE ESTES MD on Aug 04 2023 9:47AM EST [facility] Radiology Study observation (narrative) [facility] XR Shoulder - right 3 ViewsO rdered By: [facility] Provider on 08-04-2023 [facility] CNOVon 07-27-2023 CNOV Office Visit ([facility] ) MCIHAELLE MAYS ([id number]) 1980 F Date Time Provider Department 07/27/23 12:45 PM [facility]ULALIA SKINNER [facility] During your visit today, we recorded the following information about you: Temperature Pulse Respiration Blood pressure 97.8 degrees 86/minute 16/minute 128/68 Weight 121.6 kg Eulalia Skinner APRN.CNP 07/27/2023 1:09 PM Signed This note was created using NoteWriter. [...] history is provided by the patient. No speech language pathologist was used. Abdominal Pain This is a [...] HPV 04/2019 History of tobacco use Hives R&D Engineer Dr. Johns Morbid obesity (HCC) Plantar fasciitis [...] or diaphoretic. (more content not included)... Normal [facility] CNOVon 07-11-2023 [facility] MICHAELLE MAYS ([id number]) 1980 F Date Time Provider Department 07/11/23 8:15 AM EULALIA SKINNER [facility] During your visit today, we recorded the following information about you: Temperature Pulse Respiration Blood pressure 97.2 degrees 85/minute 16/minute 122/62 Weight 122.2 kg Eulalia Skinner APRN.COTTON INSPECTOR 07/11/2023 8:49 AM Signed This note was [...] history is provided by the patient. No speech language pathologist was used. Musculoskeletal Problem This is a [...] HPV 04/2019 History of tobacco use Hives R&D Engineer Dr. Johns Morbid obesity (HCC) Plantar fasciitis [...] Mucous membrane (more content not included)... Normal [facility] CNOVon 06-30-2023 CNOV Office Visit (UCTR ) MICHAELLE MAYS ([id number]) 1980 F Date Time Provider Department 06/30/23 7:15 AM ESTELITA RIVERA [facility] During your visit today, we recorded the following information about you: Temperature Pulse Respiration Blood pressure 98.5 degrees 88/minute 16/minute 142/78 Weight Last Period 121 kg 06/20/23 Estelita Rivera, SHIN 06/30/2023 7:29 AM Signed BRAT DIET (may eat any of the following as tolerated) Bananas Applesauce Silesia Saltine Crackers Animal Crackers Pretzels Oatmeal Unsweetened Dry Cereal (Rice Krispies, Cheerios) Plain Baked or Boiled Potato Plain White Rice Plain Noodles All clear liquid listed below CLEAR LIQUID DIET hour) Broth Jello Popsicles Pedialyte Gatorade NO Milk NO Dairy Products Estelita Rivera PA 06/30/2023 7:33 AM Signed This note was created using [employer]. 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 Johns Morbid obesity (HCC) Plantar fasciitis [...] ER evaluation. (more content not included)... Normal [facility] CNOVon 05-24-2023 CNOV Office Visit ([facility] ) MICHAELLE MAYS ([id number]) 1980 F Date Time Provider Department 05/24/23 3:00 PM JAZZ WRIGHT During your visit today, we recorded the following information about you: Temperature Pulse Respiration Blood pressure 98.4 degrees 101/minute 18/minute 124/80 Weight 120 kg JordilogJazz rangel APRN.COTTON INSPECTOR 05/24/2023 3:42 PM Signed 05/24/2023 Patient presents [...] HPV 04/2019 History of tobacco use Hives R&D Engineer Dr. Johns Morbid obesity (HCC) Plantar fasciitis [...] flag symptoms - CONSULT TO DERMATOLOGY Jazz Podlogar, POLYMERIZATION SUPERVISOR.COTTON INSPECTOR Prescription instructions reviewed with patient as applicable. [...] as i (more content not included)... Normal [facility] CNOVon 05-23-2023 CNOV Office Visit ([facility] ) MICHAELLE MAYS ([id number]) 1980 F Date Time Provider Department 05/23/23 8:15 AM MERLYN MEDEL [facility] During your visit today, we recorded the following information about you: Temperature Pulse Respiration Blood pressure 98.7 degrees 120/minute 21/minute 138/88 Weight 120.7 kg Merlyn Medel PA-C 05/23/2023 8:23 AM Signed This note was created using [employer]. 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 Johns Morbid obesity (HCC) Plantar fasciitis [...] Date 05/23/2023 Noted Resolved Adult BMI 30+ [OHS8471] 02/14/2013 07/02/2017 Angio-edema [T78.3XXA] 01/02/2014 Obesi (more content not included)... Normal [facility] CNOVon 05-20-2023 CNOV Office Visit ([facility] ) MICHAELLE MAYS ([id number]) 1980 F Date Time Provider Department 05/20/23 7:15 AM KOTA LACY [facility] During your visit today, we recorded the following information about you: Temperature Pulse Respiration Blood pressure 98.1 degrees 84/minute 21/minute 130/84 Weight 121.2 kg Kota Lacy, NEDRA.COTTON INSPECTOR 05/20/2023 7:49 AM Signed Subjective HPI HPI Michaelle Mays is a [...] HPV 04/2019 History of tobacco use Hives R&D Engineer Dr. Johns Morbid obesity (HCC) Plantar fasciitis [...] - INFLUENZA AANDB MOLECULAR (POC) Kota Lacy APRN.COTTON INSPECTOR Allergies As of Date: 05/20/2023 Noted Allergy Reaction HAROLDO INHIBITORS 01/11/2014 18 - Angioedema Comments: History of angioedema BUPROPION/DIETHYLPROP ION 10/16/2002 2 - Rash Comments: Wellbutrin PENICILLINS 04/28/2001 Comments: augmentin Date Reviewed: 05/20/2023 Reviewed by: Kota Lacy APRN.COTTON INSPECTOR - Fully Assessed Reason for Visit: Cough [28] Cmt: Raspy throat, clammy, fatigue, diarrhea x 2 days Primary Visit Diagnosis:URI, acute [J06.9] Order(s):INFLUENZA AANDB MOLECULAR (POC) [7485322] Order #: [id number]. #:[id number] Prescriptions as of 05/20/2023 - levonorgestrel-ethiny l estradiol (ALTAVERA, 28,) 0.15-0.03 mg per (more content not included)... Normal [facility] INFLUENZA A&B MOLECULAR (POC )on 05-20-2023 Flu A (POCT) Negative Negative [facility] Flu B (POCT) Negative Negative [facility] Procedural Control Valid [facility] CNOVon 05-13-2023 CNOV Office Visit (OBGMEM ) TABATHAMICHAELLE Sincere ([id number]) 1980 F Date Time Provider Department 05/13/23 7:25 AM KOTA VYAS OBGMEM During your visit today, we recorded the [...] L0 SAB0 IAB1 Ectopic0 Multiple0 Live Births0 Corporate Secretary History LMP: 04/26/2023, Drug Induced Amenorrhea Age at Menarche: Age at First : Age at Menopause: Corporate Secretary History Comments: Sexual Activity: Yes; Male Contraception: Pill PAST MEDICAL HISTORY Diagnosis Date Abnormal Pap smear of cervix Angio-edema 01/02/2014 ASCUS of cervix with negative high risk HPV 04/2019 History of tobacco use Hives R&D Engineer Dr. Johns Morbid obesity (HCC) Plantar fasciitis [...] external genitalia normal, normal Bartholin's glands, urethra, [place]'s glands, no vulvar lesions, no cervical lesions, [...] 1 t (more content not included)... Normal [facility] CNOVon 03-29-2023 CNOV Office Visit ([facility] ) MICHAELLE MAYS ([id number]) 1980 F Date Time Provider Department 03/29/23 7:15 AM MAXIMUS WYATT [facility] During your visit today, we recorded the following information about you: Temperature Pulse Respiration Blood pressure 98.2 degrees 92/minute 16/minute 132/80 Weight 119.7 kg Maximus Wyatt APRN.COTTON INSPECTOR 03/29/2023 8:03 AM Signed CC: Patient presents [...] HPV 04/2019 History of tobacco use Hives R&D Engineer Dr. Johns Morbid obesity (HCC) Plantar fasciitis [...] Patient agreeable to treatment plan. Maximus Wyatt APRN.COTTON INSPECTOR Allergies As of Date: 03/29/2023 Noted Allergy [...] AND RSV NAAT, ROUTINE [SQCVFLRS] Order #: [id number] FUTURE COVID AND INFLUENZA A/B AND RSV NAAT, ROUTINE [SQCVFLRS] Order #: [id number]. #:[id number] Prescriptions as of 03/29/2023 - doxepin capsule [...] Date 03/29/2023 Noted Resolved Adult BMI 30+ [LXY5021] 02/14/2013 07/02/2017 Angio-edema [T78.3XXA] 01/02/2014 Obesity, Class III, BMI >= 40 E66.01 [E66.01] 07/02/2017 Osteoarthritis [M19.90] 07/02/2017 Urticaria [L50.9] 04/26/2019 ASCUS of cervix with negative high risk HPV [R8*04/2019 (more content not included)... Normal [facility] COVID AND INFLUENZA A/B AND RSV NAAT, ROUTINEon 03-29-2023 SARS-CoV-2 (COVID-19) RNA VIVIAN+probe Ql (Unsp spec) COVID 19 RESULT: Detected The method used is RT-PCR or an equivalent NAAT method. Reference Range (the expected result in uninfected individuals): Not detected INFLUENZA A PCR: Not detected INFLUENZA B PCR: Not detected RSV PCR: Not detected Abnormal [facility] Comment on above: Performed By: #### C VFLRS ####[facility] LABCLIA [id number] [address] [place] CNOVon 03-23-2023 CNOV Office Visit (WSTR ) MICHAELLE MAYS ([id number]) 1980 F Date Time Provider Department 03/23/23 7:15 AM ESME FELIZ [facility] During your visit today, we recorded the following information about you: Temperature Pulse Respiration Blood pressure 98 degrees 86/minute 16/minute 112/70 Weight 121.6 kg Esme Feliz APRN.COTTON INSPECTOR 03/23/2023 7:37 AM Signed Subjective The history is provided by the patient. No speech language pathologist was used. HPI Michaelle Mays is a [...] HPV 04/2019 History of tobacco use Hives R&D Engineer Dr. Johns Morbid obesity (HCC) Plantar fasciitis Primary osteoarthritis of right knee I have confirmed and edited as necessary, the [facility] Review of Systems Constitutional: Positive for [...] in 12-24 hours with results, available on Appeart Considering paxlovid if positive. Will need rx [...] notified in 12-24 hours, results available on MyChart Home isolation until results are back Rest, increase water intake Motrin or Tylenol as needed for fever or pain. Salt water gargles, chloraseptic spray or lozenges as needed for sore throat. Warm beverages, honey. Nasal saline spray as needed Cool mist humidifier at night Tylenol (more content not included)... Normal [facility] COVID AND INFLUENZA A/B AND RSV NAAT, ROUTINEon 03-23-2023 SARS-CoV-2 (COVID-19) RNA VIVIAN+probe Ql (Unsp spec) COVID 19 RESULT: Not detected The method used is RT-PCR or an equivalent NAAT method. Reference Range (the expected result in uninfected individuals): Not detected INFLUENZA A PCR: Not detected INFLUENZA B PCR: Not detected RSV PCR: Not detected Normal [facility] Comment on above: Performed By: #### C VFLRS ####[facility] LABCLIA [id number] [place] [address] [place] JEN SCREENING W [facility] 10-02 [facility] XR KNEE GENERAL 4V AP BOTH/P A BOTH/LAT/MERC RIGHTon 04-23-2022 [facility] JEN SCREENING W [facility] 09-29 [facility] XR Finger - left AP and Late ral and obliqueon 04-24-2020 IMPRESSION: No acute pathology. Ventilation Worker: PSCB Transcribe Date/Time: Apr 24 2020 1:58P Dictated by : DEBBIE MULLER DO This examination was interpreted and the report reviewed and electronically signed by: DEBBIE MULLER DO on Apr 24 2020 1:58PM [facility] DIVISION OF RADIOLOGY * * *Final Report* [...] dislocations are seen. DIVISION OF RADIOLOGY Provider, [facility] - 04/24/2020 * * *Final Report* * [...] are seen. IMPRESSION IMPRESSION: No acute pathology. Ventilation Worker: NICOLA Transcribe Date/Time: Apr 24 2020 1:58P Dictated by : DEBBIE MULLER DO This examination was interpreted and the report reviewed and electronically signed by: DEBBIE MULLER DO on Apr 24 2020 1:58PM EST [facility] Radiology Study observation (narrative) [facility] XR Finger - left AP and Late ral and obliqueOrdered By: Cc Provider on 04-24-2020 [facility] XR Wrist - right 4 Viewson 1 05-08-2019 IMPRESSION: No acute bony finding. Ventilation Worker[facility] Transcribe Date/Time: Mar 07 2020 9:51A Dictated by : RAMÍREZ SNYDER MD This examination was interpreted and the report reviewed and electronically signed by: RAMÍREZ SNYDER MD on Mar 07 2020 9:52AM [facility] DIVISION OF RADIOLOGY * * *Final Report* [...] Joint spaces maintained. DIVISION [facility]OLOGY [facility] * * *Final Report* * [...] maintained. IMPRESSION IMPRESSION: No acute bony finding. [facility] Transcribe Date/Time: Mar 07 2020 9:51A Dictated by : RAMÍREZ SNYDER MD This examination was interpreted and the report reviewed and electronically signed by: RAMÍREZ SNYDER MD on Mar 07 2020 9:52AM EST [facility] Radiology Study observation (narrative) Martin borrego [facility] XR Wrist - right 4 ViewsOrde red By: [facility] Provider on 03-07-2020 [facility] Emergency Room Note on 02-24-2017 [place] [facility] Note Normal [facility] [place] Patient Summary Documentson 02-24-2017 Patient Summary Documents Normal [facility] [place] Vital Signs Date Time Vital Sign Value Performing Clinician Asmita cornell 11-01-2024 21:14-0400 Body temperature 98.1 [degF] Wild Riggins MD Work Phone: [facility] 11-01-2024 21:14-0400 Diastolic blood pressure 75 mm[Hg] Wild Riggins MD Work Phone: [facility] 11-01-2024 21:14-0400 Heart rate 80 /min Wild Riggins MD Work Phone: [facility] 11-01-2024 21:14-0400 Respiratory rate 15 /min Wild Riggins MD Work Phone: 0(319)[phone] [place] [address] 11-01-2024 21:14-0400 SaO2% (BldA) [Mass fraction] 100 % Wild Riggins MD Work Phone: 4(003)[phone] [place] [address] 11-01-2024 21:14-0400 Systolic blood pressure 138 mm[Hg] Wild Riggins MD Work Phone: 5(795)[phone] [place] [address] 11-01-2024 19:24-0400 Body height 165.1 cm Wild Riggins MD Work Phone: 5(753)535-265285 [place] [address] 11-01-2024 19:24-0400 Body mass index (BMI) [Ratio] 43.1 kg/m2 Wlid Riggins MD Work Phone: 0(582)[phone] [place] [address] 11-01-2024 19:24-0400 Body weight 117.56 kg Wild Riggins MD Work Phone: 2(894)109-309885 [place] [address] 06-27-2024 06:27-0400 Body temperature 98.2 [degF] Wild Riggins MD Work Phone: 6(493)[phone] [place] [address] 06-27-2024 06:27-0400 Diastolic blood pressure 84 mm[Hg] Wild Riggins MD Work Phone: [facility] 06-27-2024 06:27-0400 Heart rate 89 /min Wild Riggins MD Work Phone: 3(482)[phone] [place] [address] 06-27-2024 06:27-0400 SaO2% (BldA) [Mass fraction] 96 % Wild Riggins MD Work Phone: 3(604)[phone] [address] 06-27-2024 06:27-0400 Systolic blood pressure 124 mm[Hg] Wild Riggins MD Work Phone: 4(947)[phone] [address] 06-14-2024 11:24-0400 Body temperature 98.3 [degF] Wild Riggins MD Work Phone: [facility] 06-14-2024 11:24-0400 Diastolic blood pressure 74 mm[Hg] Wild Riggins MD Work Phone: [facility] 06-14-2024 11:24-0400 Heart rate 76 /min Wild Riggins MD Work Phone: [facility] 06-14-2024 11:24-0400 Respiratory rate 16 /min Wild Riggins MD Work Phone: [facility] 06-14-2024 11:24-0400 SaO2% (BldA) [Mass fraction] 99 % Wild Riggins MD Work Phone: [facility] 06-14-2024 11:24-0400 Systolic blood pressure 130 mm[Hg] Wild Riggins MD Work Phone: [facility] 03-02-2024 15:50-0500 Heart rate 90 /min Jacinta Green MD Work Phone: [facility] 03-02-2024 15:50-0500 SaO2% (BldA) [Mass fraction] 100 % Jacinta Green MD Work Phone: [facility] 03-02-2024 13:51-0500 Body mass index (BMI) [Ratio] 43.01 kg/m2 Jacinta Green MD Work Phone: [facility] 03-02-2024 13:51-0500 Body weight 121.4 kg Jacinta Green MD Work Phone: [facility] 01-14-2024 10:52-0400 Body mass index (BMI) [Ratio] 43.58 kg/m2 Merlyn Medel PA-C Work Phone: [facility] 01-14-2024 10:52-0400 Body temperature 98.1 [degF] Merlyn Medel PA-C Work Phone: [facility] 01-14-2024 10:52-0400 Body weight 123 kg Merlyn Athy PA-C Work Phone: [facility] 01-14-2024 10:52-0400 Diastolic blood pressure 84 mm[Hg] Merlyn Athy PA-C Work Phone: [facility] 01-14-2024 10:52-0400 Heart rate 86 /min Merlyn Athy PA-C Work Phone: [facility] 01-14-2024 10:52-0400 Respiratory rate 18 /min Merlyn Athy PA-C Work Phone: [facility] 01-14-2024 10:52-0400 SaO2% (BldA) [Mass fraction] 98 % Merlyn Athy PA-C Work Phone: [facility] 01-14-2024 10:52-0400 Systolic blood pressure 119 mm[Hg] Merlyn Athy PA-C Work Phone: [facility] 12-30-2023 11:19-0400 Body mass index (BMI) [Ratio] 43.62 kg/m2 Krislyn Aberegg PA Work Phone: [facility] 12-30-2023 11:19-0400 Body temperature 97.81 [degF] Krislyn Aberegg PA Work Phone: [facility] 12-30-2023 11:19-0400 Body weight 123.1 kg Krislyn Aberegg PA Work Phone: [facility] 12-30-2023 11:19-0400 Diastolic blood pressure 85 mm[Hg] Krislyn Aberegg PA Work Phone: [facility] 12-30-2023 11:19-0400 Heart rate 79 /min Krislyn Aberegg PA Work Phone: [facility] 12-30-2023 11:19-0400 Respiratory rate 18 /min Krislyn Aberegg PA Work Phone: [facility] 12-30-2023 11:19-0400 SaO2% (BldA) [Mass fraction] 98 % Krislyn Aberegg PA Work Phone: [facility] 12-30-2023 11:19-0400 Systolic blood pressure 147 mm[Hg] Krislyn Aberegg PA Work Phone: [facility] 09-20-2023 12:40-0400 Body mass index (BMI) [Ratio] 42.34 kg/m2 Krislyn Aberegg PA Work Phone: [facility] 09-20-2023 12:40-0400 Body temperature 98.2 [degF] Krislyn Aberegg PA Work Phone: [facility] 09-20-2023 12:40-0400 Body weight 119.5 kg Krislyn Aberegg PA Work Phone: [facility] 09-20-2023 12:40-0400 Diastolic blood pressure 66 mm[Hg] Krislyn Aberegg PA Work Phone: [facility] 09-20-2023 12:40-0400 Heart rate 95 /min Krislyn Aberegg PA Work Phone: [facility] 09-20-2023 12:40-0400 Respiratory rate 21 /min Krislyn Aberegg PA Work Phone: [facility] 09-20-2023 12:40-0400 SaO2% (BldA) [Mass fraction] 99 % Krislyn Aberegg PA Work Phone: [facility] 09-20-2023 12:40-0400 Systolic blood pressure 100 mm[Hg] Krislyn Aberegg PA Work Phone: [facility] 08-18-2023 13:31-0400 Body mass index (BMI) [Ratio] 42.81 kg/m2 Jazz Wright APRN.COTTON INSPECTOR Work Phone: [facility] 08-18-2023 13:31-0400 Body weight 120.84 kg Jazz Wright APRN.COTTON INSPECTOR Work Phone: [facility] 08-18-2023 13:31-0400 Diastolic blood pressure 70 mm[Hg] Jazz Podlogar POLYMERIZATION SUPERVISOR.COTTON INSPECTOR Work Phone: [facility] 08-18-2023 13:31-0400 Heart rate 81 /min Jazz Podlogar POLYMERIZATION SUPERVISOR.COTTON INSPECTOR Work Phone: [facility] 08-18-2023 13:31-0400 Respiratory rate 18 /min Jazz Podlogar POLYMERIZATION SUPERVISOR.COTTON INSPECTOR Work Phone: [facility] 08-18-2023 13:31-0400 SaO2% (BldA) [Mass fraction] 96 % Jazz Podlogar POLYMERIZATION SUPERVISOR.COTTON INSPECTOR Work Phone: [facility] 08-18-2023 13:31-0400 Systolic blood pressure 118 mm[Hg] Jazz Podlogar POLYMERIZATION SUPERVISOR.COTTON INSPECTOR Work Phone: [facility] 08-04-2023 09:09-0400 Body mass index (BMI) [Ratio] 42.87 kg/m2 Krislyn Aberegg PA Work Phone: [facility] 08-04-2023 09:09-0400 Body temperature 97.7 [degF] Krislyn Aberegg PA Work Phone: [facility] 08-04-2023 09:09-0400 Body weight 121 kg Krislyn Aberegg PA Work Phone: [facility] 08-04-2023 09:09-0400 Diastolic blood pressure 78 mm[Hg] Krislyn Aberegg PA Work Phone: [facility] 08-04-2023 09:09-0400 Heart rate 78 /min Krislyn Aberegg PA Work Phone: [facility] 08-04-2023 09:09-0400 Respiratory rate 16 /min Krislyn Aberegg PA Work Phone: [facility] 08-04-2023 09:09-0400 SaO2% (BldA) [Mass fraction] 97 % Krislyn Aberegg PA Work Phone: [facility] 08-04-2023 09:09-0400 Systolic blood pressure 126 mm[Hg] Krislyn Aberegg PA Work Phone: [facility] 07-27-2023 12:48-0400 Body mass index (BMI) [Ratio] 43.08 kg/m2 Eulalia Skinner POLYMERIZATION SUPERVISOR.COTTON INSPECTOR Work Phone: [facility] 07-27-2023 12:48-0400 Body temperature 97.81 [degF] Eulalia Skinner POLYMERIZATION SUPERVISOR.COTTON INSPECTOR Work Phone: [facility] 07-27-2023 12:48-0400 Body weight 121.6 kg Eulalia Skinner POLYMERIZATION SUPERVISOR.COTTON INSPECTOR Work Phone: [facility] 07-27-2023 12:48-0400 Diastolic blood pressure 68 mm[Hg] Eulalia Skinner POLYMERIZATION SUPERVISOR.COTTON INSPECTOR Work Phone: [facility] 07-27-2023 12:48-0400 Heart rate 86 /min Eulalia Skinner POLYMERIZATION SUPERVISOR.COTTON INSPECTOR Work Phone: [facility] 07-27-2023 12:48-0400 Respiratory rate 16 /min Eulalia Skinner POLYMERIZATION SUPERVISOR.COTTON INSPECTOR Work Phone: [facility] 07-27-2023 12:48-0400 SaO2% (BldA) [Mass fraction] 99 % Eulalia Skinner POLYMERIZATION SUPERVISOR.COTTON INSPECTOR Work Phone: [facility] 07-27-2023 12:48-0400 Systolic blood pressure 128 mm[Hg] Eulalia Skinner POLYMERIZATION SUPERVISOR.COTTON INSPECTOR Work Phone: [facility] 07-11-2023 08:10-0400 Body temperature 97.2 [degF] Eulalia Skinner POLYMERIZATION SUPERVISOR.COTTON INSPECTOR Work Phone: [facility] 07-11-2023 08:10-0400 Body weight 122.2 kg Eulalia Skinner POLYMERIZATION SUPERVISOR.COTTON INSPECTOR Work Phone: [facility] 07-11-2023 08:10-0400 Diastolic blood pressure 62 mm[Hg] Eulalia Skinner POLYMERIZATION SUPERVISOR.COTTON INSPECTOR Work Phone: [facility] 07-11-2023 08:10-0400 Heart rate 85 /min Eulalia Skinner POLYMERIZATION SUPERVISOR.COTTON INSPECTOR Work Phone: [facility] 07-11-2023 08:10-0400 Respiratory rate 16 /min Eulalia Skinner POLYMERIZATION SUPERVISOR.COTTON INSPECTOR Work Phone: [facility] 07-11-2023 08:10-0400 SaO2% (BldA) [Mass fraction] 98 % Eulalia Skinner POLYMERIZATION SUPERVISOR.COTTON INSPECTOR Work Phone: [facility] 07-11-2023 08:10-0400 Systolic blood pressure 122 mm[Hg] Eulalia Skinner POLYMERIZATION SUPERVISOR.COTTON INSPECTOR Work Phone: [facility] 06-30-2023 07:20-0400 Body temperature 98.49 [degF] Krislyn Aberegg PA Work Phone: [facility] 06-30-2023 07:20-0400 Body weight 121.02 kg Krislyn Aberegg PA Work Phone: [facility] 06-30-2023 07:20-0400 Diastolic blood pressure 78 mm[Hg] Krislyn Aberegg PA Work Phone: [facility] 06-30-2023 07:20-0400 Heart rate 88 /min Krislyn Aberegg PA Work Phone: [facility] 06-30-2023 07:20-0400 Respiratory rate 16 /min Krislyn Aberegg PA Work Phone: [facility] 06-30-2023 07:20-0400 SaO2% (BldA) [Mass fraction] 98 % Krislyn Aberegg PA Work Phone: [facility] 06-30-2023 07:20-0400 Systolic blood pressure 142 mm[Hg] Krislyn Aberegg PA Work Phone: [facility] 05-24-2023 14:59-0500 Body temperature 98.4 [degF] Jazz Podlogar POLYMERIZATION SUPERVISOR.COTTON INSPECTOR Work Phone: [facility] 05-24-2023 14:59-0500 Body weight 120.02 kg Jazz Podlogar POLYMERIZATION SUPERVISOR.COTTON INSPECTOR Work Phone: [facility] 05-24-2023 14:59-0500 Diastolic blood pressure 80 mm[Hg] Jazz Podlogar POLYMERIZATION SUPERVISOR.COTTON INSPECTOR Work Phone: [facility] 05-24-2023 14:59-0500 Heart rate 101 /min Jazz Podlogar POLYMERIZATION SUPERVISOR.COTTON INSPECTOR Work Phone: [facility] 05-24-2023 14:59-0500 Respiratory rate 18 /min Jazz Podlogar POLYMERIZATION SUPERVISOR.COTTON INSPECTOR Work Phone: [facility] 05-24-2023 14:59-0500 SaO2% (BldA) [Mass fraction] 98 % Jazz Podlogar POLYMERIZATION SUPERVISOR.COTTON INSPECTOR Work Phone: [facility] 05-24-2023 14:59-0500 Systolic blood pressure 124 mm[Hg] Jazz Podlogar POLYMERIZATION SUPERVISOR.COTTON INSPECTOR Work Phone: [facility] 05-23-2023 08:09-0500 Body temperature 98.71 [degF] Merlyn Athy PA-C Work Phone: [facility] 05-23-2023 08:09-0500 Body weight 120.66 kg Merlyn Athy PA-C Work Phone: [facility] 05-23-2023 08:09-0500 Diastolic blood pressure 88 mm[Hg] Merlyn Athy PA-C Work Phone: [facility] 05-23-2023 08:09-0500 Heart rate 120 /min Merlyn Athy PA-C Work Phone: [facility] 05-23-2023 08:09-0500 Respiratory rate 21 /min Merlyn Athy PA-C Work Phone: [facility] 05-23-2023 08:09-0500 SaO2% (BldA) [Mass fraction] 95 % Merlyn MELISSA-Annia Work Phone: [facility] 05-23-2023 08:09-0500 Systolic blood pressure 138 mm[Hg] Merlyn Medel PA-C Work Phone: [facility] 05-20-2023 07:14-0500 Body temperature 98.1 [degF] Kota Regino POLYMERIZATION SUPERVISOR.COTTON INSPECTOR Work Phone: [facility] 05-20-2023 07:14-0500 Body weight 121.2 kg Kota Regino POLYMERIZATION SUPERVISOR.COTTON INSPECTOR Work Phone: [facility] 05-20-2023 07:14-0500 Diastolic blood pressure 84 mm[Hg] Kota Regino POLYMERIZATION SUPERVISOR.COTTON INSPECTOR Work Phone: [facility] 05-20-2023 07:14-0500 Heart rate 84 /min Kota Regino POLYMERIZATION SUPERVISOR.COTTON INSPECTOR Work Phone: [facility] 05-20-2023 07:14-0500 Respiratory rate 21 /min Kota Regino POLYMERIZATION SUPERVISOR.COTTON INSPECTOR Work Phone: [facility] 05-20-2023 07:14-0500 SaO2% (BldA) [Mass fraction] 98 % Kota Regino POLYMERIZATION SUPERVISOR.COTTON INSPECTOR Work Phone: [facility] 05-20-2023 07:14-0500 Systolic blood pressure 130 mm[Hg] Kota Regino POLYMERIZATION SUPERVISOR.COTTON INSPECTOR Work Phone: [facility] 05-13-2023 07:20-0500 Body weight 119.4 kg Kota Vyas MD Work Phone: [facility] 05-13-2023 07:20-0500 Diastolic blood pressure 64 mm[Hg] Kota Vyas MD Work Phone: [facility] 05-13-2023 07:20-0500 Systolic blood pressure 108 mm[Hg] Kota Vyas MD Work Phone: [facility] 03-11-2023 11:05-0500 Body weight 117.66 kg Cheng Mcdaniel MD Work Phone: [facility] 03-11-2023 11:05-0500 Diastolic blood pressure 72 mm[Hg] Cheng Mcdaniel MD Work Phone: [facility] 03-11-2023 11:05-0500 Heart rate 85 /min Cheng Mcdaniel MD Work Phone: [facility] 03-11-2023 11:05-0500 Respiratory rate 16 /min Cheng Mcdaniel MD Work Phone: [facility] 03-11-2023 11:05-0500 SaO2% (BldA) [Mass fraction] 99 % Cheng Mcdaniel MD Work Phone: [facility] 03-11-2023 11:05-0500 Systolic blood pressure 124 mm[Hg] Cheng Mcdaniel MD Work Phone: [facility] 02-23-2023 11:05-0500 Body temperature 98.4 [degF] Lora March POLYMERIZATION SUPERVISOR.COTTON INSPECTOR Work Phone: [facility] 02-23-2023 11:05-0500 Body weight 119.2 kg Lora March POLYMERIZATION SUPERVISOR.COTTON INSPECTOR Work Phone: [facility] 02-23-2023 11:05-0500 Diastolic blood pressure 74 mm[Hg] Lora March POLYMERIZATION SUPERVISOR.COTTON INSPECTOR Work Phone: [facility] 02-23-2023 11:05-0500 Heart rate 78 /min Lora March POLYMERIZATION SUPERVISOR.COTTON INSPECTOR Work Phone: [facility] 02-23-2023 11:05-0500 Respiratory rate 16 /min Lora March POLYMERIZATION SUPERVISOR.COTTON INSPECTOR Work Phone: [facility] 02-23-2023 11:05-0500 SaO2% (BldA) [Mass fraction] 98 % Lora March POLYMERIZATION SUPERVISOR.COTTON INSPECTOR Work Phone: [facility] 02-23-2023 11:05-0500 Systolic blood pressure 118 mm[Hg] Lora March APRN.COTTON INSPECTOR Work Phone: [facility] 12-02-2022 17:36-0400 Body temperature 98.29 [degF] Micah Pete MD Work Phone: [facility] 12-02-2022 17:36-0400 Body weight 115.21 kg Micah Pete MD Work Phone: [facility] 12-02-2022 17:36-0400 Diastolic blood pressure 82 mm[Hg] Micah Pete MD Work Phone: [facility] 12-02-2022 17:36-0400 Heart rate 82 /min Micah Pete MD Work Phone: [facility] 12-02-2022 17:36-0400 Respiratory rate 16 /min Micah Pete MD Work Phone: [facility] 12-02-2022 17:36-0400 SaO2% (BldA) [Mass fraction] 99 % Micah Pete MD Work Phone: [facility] 12-02-2022 17:36-0400 Systolic blood pressure 122 mm[Hg] Micah Pete MD Work Phone: [facility] 11-16-2022 11:56-0400 Body temperature 98.6 [degF] Kota Lacy POLYMERIZATION SUPERVISOR.COTTON INSPECTOR Work Phone: [facility] 11-16-2022 11:56-0400 Body weight 115.67 kg Kota Lacy APRN.COTTON INSPECTOR Work Phone: [facility] 11-16-2022 11:56-0400 Diastolic blood pressure 78 mm[Hg] Kota Lacy APRN.COTTON INSPECTOR Work Phone: [facility] 11-16-2022 11:56-0400 Heart rate 112 /min Kota Lacy APRN.COTTON INSPECTOR Work Phone: [facility] 11-16-2022 11:56-0400 Respiratory rate 18 /min Kota Lacy APRN.COTTON INSPECTOR Work Phone: [facility] 11-16-2022 11:56-0400 SaO2% (BldA) [Mass fraction] 97 % Kota Lacy POLYMERIZATION SUPERVISOR.COTTON INSPECTOR Work Phone: [facility] 11-16-2022 11:56-0400 Systolic blood pressure 138 mm[Hg] Kota Lacy POLYMERIZATION SUPERVISOR.COTTON INSPECTOR Work Phone: [facility] 09-07-2022 14:07-0400 Body weight 115.58 kg Jazz Podlogar POLYMERIZATION SUPERVISOR.COTTON INSPECTOR Work Phone: [facility] 09-07-2022 14:07-0400 Diastolic blood pressure 72 mm[Hg] Jazz Podlogar POLYMERIZATION SUPERVISOR.COTTON INSPECTOR Work Phone: [facility] 09-07-2022 14:07-0400 Heart rate 78 /min Jazz Podlogar POLYMERIZATION SUPERVISOR.COTTON INSPECTOR Work Phone: [facility] 09-07-2022 14:07-0400 Respiratory rate 18 /min Jazz Podlogar POLYMERIZATION SUPERVISOR.COTTON INSPECTOR Work Phone: [facility] 09-07-2022 14:07-0400 SaO2% (BldA) [Mass fraction] 99 % Jazz Podlogar POLYMERIZATION SUPERVISOR.COTTON INSPECTOR Work Phone: [facility] 09-07-2022 14:07-0400 Systolic blood pressure 116 mm[Hg] Jazz Podlogar POLYMERIZATION SUPERVISOR.COTTON INSPECTOR Work Phone: [facility] 07-29-2022 07:54-0400 Body weight 115.3 kg Jazz Podlogar POLYMERIZATION SUPERVISOR.COTTON INSPECTOR Work Phone: [facility] 07-29-2022 07:54-0400 Diastolic blood pressure 66 mm[Hg] Jazz Podlogar POLYMERIZATION SUPERVISOR.COTTON INSPECTOR Work Phone: [facility] 07-29-2022 07:54-0400 Heart rate 84 /min Jazz Podlogar POLYMERIZATION SUPERVISOR.COTTON INSPECTOR Work Phone: [facility] 07-29-2022 07:54-0400 Respiratory rate 16 /min Jazz Podlogar POLYMERIZATION SUPERVISOR.COTTON INSPECTOR Work Phone: [facility] 07-29-2022 07:54-0400 SaO2% (BldA) [Mass fraction] 98 % Jazz Podlogar POLYMERIZATION SUPERVISOR.COTTON INSPECTOR Work Phone: [facility] 07-29-2022 07:54-0400 Systolic blood pressure 116 mm[Hg] Jazz Podlogar POLYMERIZATION SUPERVISOR.COTTON INSPECTOR Work Phone: [facility] 07-27-2022 07:33-0400 Body temperature 99.3 [degF] Jazz Podlogar POLYMERIZATION SUPERVISOR.COTTON INSPECTOR Work Phone: [facility] 07-27-2022 07:33-0400 Body weight 114.67 kg Jazz Podlogar POLYMERIZATION SUPERVISOR.COTTON INSPECTOR Work Phone: [facility] 07-27-2022 07:33-0400 Diastolic blood pressure 78 mm[Hg] Jazz Podlogar POLYMERIZATION SUPERVISOR.COTTON INSPECTOR Work Phone: [facility] 07-27-2022 07:33-0400 Heart rate 92 /min Jazz Podlogar POLYMERIZATION SUPERVISOR.COTTON INSPECTOR Work Phone: [facility] 07-27-2022 07:33-0400 Respiratory rate 16 /min Jazz Podlogar POLYMERIZATION SUPERVISOR.COTTON INSPECTOR Work Phone: [facility] 07-27-2022 07:33-0400 SaO2% (BldA) [Mass fraction] 98 % Jazz Podlogar POLYMERIZATION SUPERVISOR.COTTON INSPECTOR Work Phone: [facility] 07-27-2022 07:33-0400 Systolic blood pressure 120 mm[Hg] Jazz Podlogar POLYMERIZATION SUPERVISOR.COTTON INSPECTOR Work Phone: [facility] 05-06-2022 08:47-0500 Body weight 111.04 kg Micah Jo MD Work Phone: [facility] 05-06-2022 08:47-0500 Diastolic blood pressure 78 mm[Hg] Micah Jo MD Work Phone: [facility] 05-06-2022 08:47-0500 Systolic blood pressure 126 mm[Hg] Micah Jo MD Work Phone: [facility] 03-06-2022 13:23-0500 Body temperature 98.29 [degF] Eulalia Skinner POLYMERIZATION SUPERVISOR.COTTON INSPECTOR Work Phone: [facility] 03-06-2022 13:23-0500 Body weight 107.14 kg Eulalia Skinner POLYMERIZATION SUPERVISOR.COTTON INSPECTOR Work Phone: [facility] 03-06-2022 13:23-0500 Diastolic blood pressure 66 mm[Hg] Eulalia Skinner POLYMERIZATION SUPERVISOR.COTTON INSPECTOR Work Phone: [facility] 03-06-2022 13:23-0500 Heart rate 86 /min Eulalia Skinner POLYMERIZATION SUPERVISOR.COTTON INSPECTOR Work Phone: [facility] 03-06-2022 13:23-0500 Respiratory rate 16 /min Eulalia Skinner POLYMERIZATION SUPERVISOR.COTTON INSPECTOR Work Phone: [facility] 03-06-2022 13:23-0500 SaO2% (BldA) [Mass fraction] 98 % Eulalia Skinner POLYMERIZATION SUPERVISOR.COTTON INSPECTOR Work Phone: [facility] 03-06-2022 13:23-0500 Systolic blood pressure 126 mm[Hg] Eulalia Skinner POLYMERIZATION SUPERVISOR.COTTON INSPECTOR Work Phone: [facility] 12-02-2021 12:49-0400 Body temperature 97.81 [degF] Merlyn Athy PA-C Work Phone: [facility] 12-02-2021 12:49-0400 Body weight 106.59 kg Merlyn Athy PA-C Work Phone: [facility] 12-02-2021 12:49-0400 Diastolic blood pressure 72 mm[Hg] Merlyn Athy PA-C Work Phone: [facility] 12-02-2021 12:49-0400 Heart rate 68 /min Merlyn Athy PA-C Work Phone: [facility] 12-02-2021 12:49-0400 Respiratory rate 16 /min Merlyn Paytony PA-C Work Phone: [facility] 12-02-2021 12:49-0400 SaO2% (BldA) [Mass fraction] 99 % Merlynalexander Paytony PA-C Work Phone: [facility] 12-02-2021 12:49-0400 Systolic blood pressure 128 mm[Hg] Merlyn Paytony PA-C Work Phone: [facility] 08-26-2021 11:55-0400 Body temperature 97.39 [degF] Esme Tray POLYMERIZATION SUPERVISOR.COTTON INSPECTOR Work Phone: [facility] 08-26-2021 11:55-0400 Body weight 106.32 kg Esme Tray POLYMERIZATION SUPERVISOR.COTTON INSPECTOR Work Phone: [facility] 08-26-2021 11:55-0400 Diastolic blood pressure 68 mm[Hg] Esme Tray POLYMERIZATION SUPERVISOR.COTTON INSPECTOR Work Phone: [facility] 08-26-2021 11:55-0400 Heart rate 87 /min Esme Tray POLYMERIZATION SUPERVISOR.COTTON INSPECTOR Work Phone: [facility] 08-26-2021 11:55-0400 Respiratory rate 18 /min Esme Tray POLYMERIZATION SUPERVISOR.COTTON INSPECTOR Work Phone: [facility] 08-26-2021 11:55-0400 SaO2% (BldA) [Mass fraction] 98 % Esme Tray POLYMERIZATION SUPERVISOR.COTTON INSPECTOR Work Phone: [facility] 08-26-2021 11:55-0400 Systolic blood pressure 116 mm[Hg] Esme Tray POLYMERIZATION SUPERVISOR.COTTON INSPECTOR Work Phone: [facility] Encounters Encounter Date Encounter Type Care Provider Facility Start: 11-17-2024 End: 11-17-2024 ambulatory Wild Riggins MD Work Phone: -[facility] Start: 11-17-2024 End: 11-17-[address] Wild Riggins MD -Card[facility]ovascular Services Work Phone: Start: 11-17-2024 End: 11-17-2024 ambulatory Wild Riggins Facility:[facility] Start: 11-01-2024 End: 11-01-2024 Emergency department patient visit Wild Riggins MD Work Phone: -Emergency Department Work Phone: Start: 10-09-2024 End: 10-09-2024 ambulatory Wild Riggins MD Work Phone: -Outpatient Breast Imaging Start: 10-09-2024 End: 10-09-2024 [facility] HEALTH SAFETY INSTRUCTOR-C -Outpatient Breast Imaging Work Phone: Start: 10-09-2024 End: 10-09-2024 ambulatory Nico [facility] Facility:[facility] Start: 10-02-2024 End: 10-02-2024 ambulatory DEMARCUS LARSEN Facility:[facility] Start: 10-02-2024 End: 10-02-[address] DEMARCUS LARSEN MD [facility] Start: 06-27-2024 End: 06-27-2024 Patient encounter procedure Kunal Adams [facility] Work Phone: Start: 06-27-2024 End: 06-27-2024 ambulatory Wild Riggins Facility:[facility] Start: 06-14-2024 End: 06-14-2024 Patient encounter procedure Kunal Adams PA [facility] Work Phone: Start: 06-14-2024 End: 06-14-2024 ambulatory Wild Riggins Facility:[facility] Start: 05-15-2024 End: 05-15-2024 ambulatory Nico [facility] Facility:[facility] Start: 03-12-2024 End: 03-13-2024 ambulatory Jacinta Green MD Work Phone: Allergy Comment on above: Blood test results Start: 03-12-2024 End: 03-13-2024 E-mail encounter from caregiver Jacinta Green MD Work Phone: Allergy Start: 03-02-2024 End: 03-02-2024 ambulatory JACINTA GREEN Facility:[facility] Start: 03-02-2024 End: 03-02-2024 Office outpatient visit 40 minutes Jacinta Green MD Work Phone: Allergy Comment on above: Allergy to penicilli n (Primary Dx); Urticaria; Angioedema, subsequent encounter Start: 02-15-2024 End: 02-15-2024 ambulatory Chalon Vaishnavi Facility:[facility] Start: 02-10-2024 End: 02-10-2024 ambulatory Chalon Vaishnavi Facility:[facility] Start: 01-31-2024 End: 01-31-2024 ambulatory [facility] Facility:[facility] Start: 01-27-2024 End: 01-27-2024 ambulatory [facility] Facility:[facility] Start: 01-27-2024 End: 01-27-2024 Office outpatient visit 25 minutes Jacinta Green MD Work Phone: Allergy Comment on above: Urticaria (Primary D x); Angioedema, subsequent encounter; Allergy to penicillin Start: 01-24-2024 End: 01-26-2024 ambulatory Veronique Johns MD Work Phone: Allergy Comment on above: Possibly upping my d morongo Start: 01-24-2024 End: 01-26-2024 Patient encounter procedure Veronique Johns MD Work Phone: Allergy Comment on above: Yearly appointment Start: 01-14-2024 End: 01-14-2024 ambulatory CHENG MCDANIEL Facility:[facility] Start: 01-14-2024 End: 01-14-2024 Patient encounter procedure Merlyn Medel PA-C Work Phone: [facility] Comment on above: Viral URI (Primary D x); Sinus congestion Start: 12-30-2023 End: 12-30-2023 ambulatory CHENG MCDANIEL Facility:[facility] Start: 12-30-2023 End: 12-30-2023 Patient encounter procedure Estelita MELISSA Work Phone: [facility] Comment on above: Strain of neck muscl e, initial encounter (Primary Dx) Start: 12-07-2023 End: 12-21-2023 ambulatory Veronique Johns MD Work Phone: Allergy Comment on above: Swelling of my brii e Start: 12-06-2023 End: 12-14-2023 Telephone encounter Cheng Mcdaniel MD Work Phone: [facility] Comment on above: Appointment Start: 12-03-2023 End: 12-03-2023 Emergency department patient visit Alexis Mcdaniel Facility:[facility] Start: 10-05-2023 Documentation procedure Mammog owen Coordinator [facility] Start: 10-05-2023 Letter encounter Mammography Coordinator [facility] Start: 10-04-2023 End: 10-04-2023 ambulatory MICAH JO Facility:[facility] Start: 10-04-2023 End: 10-04-2023 Subsequent hospital visit by physician [facility] Comment on above: Encounter for screen ing mammogram for malignant neoplasm of breast [Z12.31] Start: 09-20-2023 End: 09-20-2023 ambulatory CHENG MCDANIEL Facility:[facility] Start: 09-20-2023 End: 09-20-2023 Patient encounter procedure Estelita MELISSA Work Phone: [facility] Comment on above: Fatigue, unspecified type (Primary Dx) Start: 08-24-2023 Refill Annemarie Vetovit silviano MELISSA-Annia Work Phone: Orthopaedics Comment on above: Refill Request Start: 08-18-2023 End: 08-18-2023 ambulatory JAZZ PODLOGAR Facility:[facility] Start: 08-18-2023 End: 08-18-2023 Patient encounter procedure Jazz Podlogar POLYMERIZATION SUPERVISORANNETTE Work Phone: [facility] Comment on above: Acute pain of right shoulder (Primary Dx) Start: 08-04-2023 Telephone encounter Deon anna MD Work Phone: [facility] [place] Comment on above: Appointment Cancelle d (08/26/23 needs rescheduled, see notes for contact attempts./) Start: 08-04-2023 End: 08-04-2023 Subsequent hospital visit by physician [facility] Work Phone: Radiology Comment on above: Acute pain of right shoulder [M25.511] Start: 08-04-2023 End: 08-04-2023 ambulatory CHENG MCDANIEL Facility:[facility] Start: 08-04-2023 End: 08-04-2023 Patient encounter procedure Estelita MELISSA Work Phone: [facility] Comment on above: Acute pain [...] Start: 07-11-2023 End: 07-11-2023 ambulatory CHENG MCDANIEL Facility:[facility] Start: 07-11-2023 End: 07-11-2023 Patient encounter procedure Eulalia Skinner POLYMERIZATION SUPERVISOR.COTTON INSPECTOR Work Phone: [facility] Comment on above: Blister of left hand excluding fingers, subsequent encounter (Primary Dx) Start: 06-30-2023 End: 06-30-2023 ambulatory CHENG MCDANIEL Facility:[facility] Start: 06-30-2023 End: 06-30-2023 Patient encounter procedure Estelita MELISSA Work Phone: [facility] Comment on above: Diarrhea, unspecifie d type (Primary Dx) Start: 05-24-2023 End: 05-24-2023 ambulatory JAZZ PODLOGAR Facility:[facility] Start: 05-24-2023 End: 05-24-2023 Patient encounter procedure Jazz Wright POLYMERIZATION SUPERVISOR.COTTON INSPECTOR Work Phone: [facility] Comment on above: Blister (nonthermal) of left hand, sequela (Primary Dx) Start: 05-23-2023 End: 05-23-2023 ambulatory CHENG MCDANIEL Facility:[facility] Start: 05-23-2023 End: 05-23-2023 Patient encounter procedure Merlyn Medel PA-C Work Phone: [facility] Comment on above: Blister of left hand , initial encounter (Primary Dx) Start: 05-20-2023 End: 05-20-2023 ambulatory CHENG MCDANIEL Facility:[facility] Start: 05-20-2023 End: 05-20-2023 Patient encounter procedure Kota Lacy APRN.COTTON INSPECTOR Work Phone: [facility] Comment on above: URI, acute (Primary Dx) Start: 05-13-2023 End: 05-13-2023 ambulatory KOTA VYAS Facility:[facility] Start: 05-13-2023 End: 05-13-2023 Patient encounter procedure Kota Vyas MD Work Phone: Obstetrics/Gynecology Comment on above: Encounter for gyneco logical examination (general) (routine) without abnormal findings (Primary Dx); Medication refill; Encounter for surveillance of contraceptive pills Start: 05-13-2023 End: 05-13-2023 Patient encounter status Kota Vyas MD Work Phone: [facility] Work Phone: Start: 05-03-2023 Refill Cecilia Gomez POLYMERIZATION SUPERVISOR.COTTON INSPECTOR Work Phone: Allergy Comment on above: Refill Request Start: 03-29-2023 End: 03-29-2023 ambulatory CHENG MCDANIEL Facility:[facility] Start: 03-23-2023 End: 03-23-2023 ambulatory CHENG MCDANIEL Facility:[facility] Start: 03-11-2023 End: 03-11-2023 Patient encounter procedure Cheng Mcdaniel MD Work Phone: [facility] Comment on above: Acute pain of right knee (Primary Dx) Start: 02-23-2023 End: 02-23-2023 Patient encounter procedure Lora March POLYMERIZATION SUPERVISOR.COTTON INSPECTOR Work Phone: [facility] Comment on above: Viral illness (Prima ry Dx) Start: 12-02-2022 End: 12-02-2022 Patient encounter procedure Micah Pete MD Work Phone: [facility] Comment on above: URI, acute (Primary Dx) Start: 12-01-2022 Refill Cecilia Whitsel POLYMERIZATION SUPERVISOR.COTTON INSPECTOR Work Phone: Allergy Comment on above: Refill Request Start: 11-30-2022 Refill Veronique Johns MD Work Phone: Allergy Comment on above: Refill Request Start: 11-16-2022 End: 11-16-2022 Patient encounter procedure Kota Lacy POLYMERIZATION SUPERVISOR.COTTON INSPECTOR Work Phone: [facility] Comment on above: Fatigue, unspecified type (Primary Dx) Start: 11-05-2022 Refill Cecilia Whitsel POLYMERIZATION SUPERVISOR.COTTON INSPECTOR Work Phone: Allergy Comment on above: Refill Request Start: 10-14-2022 End: 10-14-2022 Patient encounter procedure Treva Reynolds MD Work Phone: Otolaryngology Comment on above: Impacted cerumen of left ear (Primary Dx) Start: 10-02-2022 End: 10-02-2022 Subsequent hospital visit by physician [facility] Comment on above: Encounter for screen ing mammogram for malignant neoplasm of breast [Z12.31] Start: 09-07-2022 End: 09-07-2022 Patient encounter procedure Jazz Wright POLYMERIZATION SUPERVISOR.COTTON INSPECTOR Work Phone: [facility] Comment on above: Acute left-sided low back pain without sciatica (Primary Dx); Blister of left hand, initial encounter Start: 08-22-2022 ambulatory Treva Reynolds MD Work Phone: Otolaryngology Comment on above: My left ear. Start: 07-29-2022 End: 07-29-2022 Patient encounter procedure Jazz Wright APRN.COTTON INSPECTOR Work Phone: [facility] Comment on above: Skin infection (Prim leanne Dx); Blister of skin Start: 07-27-2022 End: 07-27-2022 Patient encounter procedure Jazz Wright APRN.COTTON INSPECTOR Work Phone: [facility] Comment on above: Skin infection (Prim leanne Dx) Start: 07-22-2022 Telephone encounter Estelita MELISSA Work Phone: [facility] Comment on above: Medication Problem Start: 07-10-2022 Telephone encounter Kota pal APRN.COTTON INSPECTOR Work Phone: [facility] Comment on above: Letter Start: 2022 End: 2022 Nursing evaluation of patient and report Mi Nurse Work Phone: [facility] Comment on above: Encounter for long-t erm [...] End: 04-23-2022 Subsequent hospital visit by physician [facility] Mcnally Work Phone: Radiology Comment on above: Right knee pain, uns pecified chronicity [M25.561] Start: 04-18-2022 Refill Annemarie shore PA-C Work Phone: Orthopaedics Comment on above: Refill Request Start: 04-15-2022 Orders Only Arthur Krishnan MD Work Phone: Orthopaedics Comment on above: Right knee pain, uns pecified chronicity (Primary Dx) Start: 03-06-2022 End: 03-06-2022 Patient encounter procedure Eulalia Skinner POLYMERIZATION SUPERVISOR.COTTON INSPECTOR Work Phone: [facility] Comment on [...] with patient Veronique Johns MD Work Phone: [facility] Start: 12-02-2021 End: 12-02-2021 Patient encounter procedure Merlyn Medel PA-C Work Phone: [facility] Comment on above: Diarrhea, unspecifie d type (Primary Dx) Start: 09-29-2021 Documentation procedure Mammog owen Coordinator [facility] Start: 09-29-2021 Letter encounter Mammography Coordinator [facility] Department Start: 09-29-2021 End: 09-29-2021 Subsequent hospital visit by physician [facility] Comment on above: Encounter for screen ing mammogram for malignant neoplasm of breast [Z12.31] Start: 09-09-2021 Orders Only Annemarie shore PA-C Work Phone: Orthopaedics Comment on above: Primary osteoarthrit is of right knee Start: 09-01-2021 Refill Veronique Johns MD Work Phone: Allergy Comment on above: Refill Request Start: 08-26-2021 End: 08-26-2021 Patient encounter procedure Esme Feliz POLYMERIZATION SUPERVISOR.COTTON INSPECTOR Work Phone: [facility] Comment on above: Nausea (Primary Dx); Diarrhea, unspecified type; Abdominal cramping Start: 08-08-2021 End: 08-08-2021 ambulatory Veronique Johns MD Work Phone: Allergy Comment on above: Encounter for long-t erm (current) use of medications (Primary Dx); Urticaria; Angioedema, subsequent encounter; Cough Start: 08-08-2021 End: 08-08-2021 Telemedicine consultation with patient Veronique Johns MD Work Phone: [facility] Start: 07-20-2021 Refill Ceciliaheron Gomez APRN.CNP Work Phone: Allergy Comment on above: Refill Request Start: 04-24-2020 End: 04-24-2020 Subsequent hospital visit by physician [facility] Work Phone: Radiology Comment on above: Pain of left middle finger [M79.645] Start: 03-07-2020 End: 03-07-2020 Subsequent hospital visit by physician [facility] Work Phone: Radiology Comment on above: Wrist injury, right, initial encounter [S69.91XA] Start: 02-23-2017 End: 02-24-2017 Emergency department patient visit [facility] Facility:B Procedures Date Procedure Procedure Detail Performing Clinician Start: 11-01-2024 CT cervical spine wi thout contrast Wild Riggins MD Work Phone: Start: 11-01-2024 CT of head without contrast Wild Riggins MD Work Phone: Start: 10-09-2024 Screening mammography C terry Riggins MD Work Phone: Start: 10-02-[address] DEMARCUS LARSEN MD Start: 03-02-2024 ALLERGEN SKIN TEST-PENICILLIN Jacinta Green MD Work Phone: Start: 03-02-2024 Ingestion challenge test initial 120 minutes Jacinta Green MD Work Phone: Start: 08-04-2023 Radex shoulder compl ete minimum 2 views Estelita MELISSA Work Phone: Start: 05-20-2023 INFLUENZA A&B MOLECU LAR (POC) Kota Lacy POLYMERIZATION SUPERVISOR.COTTON INSPECTOR Work Phone: Start: 10-02-2022 End: 10-02-2022 Mammography Micah Jo MD Work Phone: Start: 04-23-2022 Radiologic exam knee complete 4/more views Arthur Krishnan MD Work Phone: Start: 09-29-2021 JEN SCREENING W CHRISTOPHER Jo MD Work Phone: Start: 09-29-2021 Mammography Screen Wst r Start: 10-20-2020 Adult depression scr eening assessment Cecilia Jason POLYMERIZATION SUPERVISOR.COTTON INSPECTOR Work Phone: Start: 09-26-2020 Lipid 1996 panel - S aditya or Plasma Kota Vyas MD Work Phone: Start: 09-26-2020 Mammography Cecilia Mine tolbert POLYMERIZATION SUPERVISOR.COTTON INSPECTOR Work Phone: Start: 04-24-2020 Radex fingr minimum 2 views Gm Martel POLYMERIZATION SUPERVISOR.COTTON INSPECTOR Work Phone: Start: 03-07-2020 Radex wrist complete minimum 3 views Merlyn MELISSA-Annia Work Phone: Cholecystectomy DR DEMARCUS JENSEN MD Comment on above: LAPAROSCOPIC Plan of Treatment Date Care Activity Detail Author Start: 03-02-2027 Diabetes Screening Diabetes Screenin g [facility] Start: 02-08-2026 Diabetes Screening Diabetes Screenin g [facility] Start: 09-26-2025 Lipid panel Lipid Screening [facility] Start: 11-01-2024 [facility] Start: 10-03-2024 Screening for malign ant neoplasm of breast Mammogram Screening [facility] Start: 04-26-2024 HPV TESTING HPV TESTING [facility] Start: 04-26-2024 Screening for malign ant neoplasm of cervix HPV Testing [facility] Start: 03-02-2024 End: 06-01-2024 C1Q COMPLEMENT PROT [facility] Comment on above: Expected: 03/02/2024 , Expires: 06/01/2024 Start: 03-02-2024 End: 06-01-2024 Complement C1 esterase inhibitor [Mass/volume] in Serum or Plasma [facility] Comment on above: Expected: 03/02/2024 , Expires: 06/01/2024 Start: 03-02-2024 End: 06-01-2024 Complement C1 esterase inhibitor.functional/Co mplement C1 esterase inhibitor.total in Serum or Plasma [facility] Work Phone: Comment on above: Expected: 03/02/2024 , Expires: 06/01/2024 Start: 03-02-2024 End: 06-01-2024 Complement C4 [Mass/volume] in Serum or Plasma [facility] Comment on above: Expected: 03/02/2024 , Expires: 06/01/2024 Start: 03-02-2024 End: 06-01-2024 Comprehensive metabolic 2000 panel - Serum or Plasma [facility] Comment on above: Expected: 03/02/2024 , Expires: 06/01/2024 Start: 03-02-2024 End: 03-02-2024 Patient encounter procedure 03/02/2024 2:00 PM EST Office Visit Allergy [address] [place] [address] [place] [address] [place] [address] SKIN TESTING, INTRADERMAL - PENICILLIN Allergy Comment on above: SKIN TESTING, INTRAD ERMAL - PENICILLIN Start: 01-27-2024 End: 01-27-2024 Follow-up encounter 01/27/2024 3:30 PM EST [facility] [address] [place] [address] [place] [address] [place] [address] ANNUAL FOLLOW UP - VIRTUAL Allergy Comment on above: ANNUAL FOLLOW UP - V IRTUAL Start: 11-21-2023 Covid-19 Vaccine ( season) Covid-19 Vaccine () [facility] Start: 11-21-2023 Covid-19 Vaccine () Covid-19 Vaccine () [facility] Start: 11-21-2023 Influenza vaccination C [facility] Start: 11-08-2023 End: 11-08-2023 Patient encounter procedure 11/08/2023 1:00 PM EDT Office Visit Orthopaedics [address] [place] [address] Annemarie Dick PA-C [address] [place] [address] Acute pain of right shoulder [M25.511] Orthopaedics Comment on above: Acute pain of right shoulder [M25.511] Start: 10-04-2023 End: 10-04-2023 Patient encounter procedure 10/04/2023 2:50 PM EDT Appointment Mammogram [address] [place] [address] Mammogram Start: 10-03-2023 Mammography [facility] Start: 10-03-2023 Screening for malign ant neoplasm of breast Mammogram Screening [facility] Start: 08-26-2023 End: 08-26-2023 Patient encounter procedure 08/26/2023 10:40 AM EDT Office Visit Dermatology [address] [place] [address] [place] [address] [place] [address] Blister of left hand, initial encounter [S60.522A (ICD-10-CM)] Dermatology Comment on above: Blister of left hand , initial encounter [S60.522A (ICD-10-CM)] Start: 2023 Screening for malign ant neoplasm of colon [facility] Start: 04-29-2023 PAP TESTING PAP TESTING [facility] Start: 04-29-2023 Screening for malign ant neoplasm of cervix [facility] Start: 03-22-2023 Behavioral Health Screening Behavioral Health Screening [facility] Start: 03-22-2023 [facility] Start: 12-06-2022 Urine microalbumin profile [facility] Start: 11-20-2022 Covid-19 Vaccine ( season) Covid-19 Vaccine ( season) [facility] Start: 11-20-2022 Influenza vaccination [facility] Start: 09-29-2022 Mammography MAMMOGRAM [facility] Start: 03-22-2022 DEPRESSION ASSESSMENT DEPRESSION ASS ESSMENT [facility] Start: 02-02-2022 End: 04-04-2022 CBC W Auto Differential panel - Blood CBC + DIFF Lab Routine Urticaria Angioedema, subsequent encounter Expected: 02/02/2022, Expires: 04/04/2022 [facility] Work Phone: Comment on above: Expected: 02/02/2022 , Expires: 04/04/2022 Start: 02-02-2022 End: 04-04-2022 Comprehensive metabolic 2000 panel - Serum or Plasma COMP METABOLIC PANEL Lab Routine Urticaria Angioedema, subsequent encounter Expected: 02/02/2022, Expires: 04/04/2022 [facility] Work Phone: Comment on above: Expected: 02/02/2022 , Expires: 04/04/2022 Start: 11-20-2021 Influenza vaccination INFLUENZA (#1) [facility] Start: 10-20-2021 Adult depression screening assessment DEPRESSION SCREENING [facility] Start: 09-26-2021 Mammography MAMMOGRAM [facility] Start: 08-08-2021 End: 10-08-2021 CBC W Auto Differential panel - Blood CBC + DIFF Lab Routine Encounter for long-term (current) use of medications Expected: 08/08/2021, Expires: 10/08/2021 [facility] Work Phone: Comment on above: Expected: 08/08/2021 , Expires: 10/08/2021 Start: 08-08-2021 End: 10-08-2021 Comprehensive metabolic 2000 panel - Serum or Plasma COMP METABOLIC PANEL Lab Routine Encounter for long-term (current) use of medications Expected: 08/08/2021, Expires: 10/08/2021 [facility] Work Phone: Comment on above: Expected: 08/08/2021 , Expires: 10/08/2021 Start: 03-22-2021 DEPRESSION ASSESSMENT DEPRESSION ASS ESSMENT [facility] Start: 1996 Anxiety Screening Anxiety Screening [facility] Start: 1996 Depression Screening Depression Scre ening [facility] End: 08-12-2024 DBT Breast - bilateral screening JEN SCREENING W CHRISTOPHER Radiology Routine Encounter for screening mammogram for malignant neoplasm of breast 1 Occurrences starting 07/14/2023 until 08/12/2024 [facility] Work Phone: Comment on above: 1 Occurrences starti ng 07/14/2023 until 08/12/2024 DBT Breast - bilater al screening JEN SCREENING W CHRISTOPHER Radiology Routine Encounter for screening mammogram for malignant neoplasm of breast 10/04/2023 2:56 PM EDT [facility] Work Phone: End: 08-08-2022 ECG COMPLETE ECG COMPLETE ECG Routine Encounter for long-term (current) use of medications 1 Occurrences starting 08/08/2021 until 08/08/2022 [facility] Work Phone: Comment on above: 1 Occurrences starti ng 08/08/2021 until 08/08/2022 End: 02-02-2023 ECG COMPLETE ECG COMPLETE ECG Routine Encounter for long-term (current) use of medications 1 Occurrences starting 02/02/2022 until 02/02/2023 [facility] Work Phone: Comment on above: 1 Occurrences starti ng 02/02/2022 until 02/02/2023 End: 06-05-2023 JEN SCREENING W CHRISTOPEHR JEN SCREENING W CHRISTOPHER Radiology Routine Encounter for screening mammogram for malignant neoplasm of breast 1 Occurrences starting 05/06/2022 until 06/05/2023 [facility] Work Phone: Comment on above: 1 Occurrences starti ng 05/06/2022 until 06/05/2023 Patient Education ED Abrasion ED Neck Sprain or Strain ED Fall Prevention [facility] Work Phone: End: 05-15-2023 XR KNEE GENERAL 4V AP BOTH/PA BOTH/LAT/MERC RIGHT XR KNEE GENERAL 4V AP BOTH/PA BOTH/LAT/MERC RIGHT Radiology Routine Right knee pain, unspecified chronicity 1 Occurrences starting 04/15/2022 until 05/15/2023 [facility] Work Phone: Comment on above: 1 Occurrences starti ng 04/15/2022 until 05/15/2023 [facility] Immunizations Immunization Date Immunization Notes Care Provider Fa [facility] 12-18-2023 COVID-19 vaccine, ag e 12+ yr (MODERNA) Estelita MELISSA Work Phone: [facility] 12-18-2023 influenza virus vaccine, split virus (incl. purified surface antigen) Estelita MELISSA Work Phone: [facility] 01-03-2022 COVID-19 booster vaccine, age 12+ yr, bivalent (MODERNA) Veronique Johns MD Work Phone: [facility] Work Phone: 01-03-2022 Influenza, injectabl e, Madin Mandy Canine Kidney, preservative free, quadrivalent Veronique Johns MD Work Phone: [facility] 01-03-2022 influenza, seasonal, injectable, preservative free Veronique Johns MD Work Phone: [facility] Work Phone: 01-03-2022 influenza virus vaccine, unspecified formulation Cecilia Gomez APRN.COTTON INSPECTOR Work Phone: [facility] 12-27-2020 influenza, injectabl e, quadrivalent, preservative free Cecilia Gomez APRN.COTTON INSPECTOR Work Phone: [facility] 08-15-2020 COVID-19 vaccine, fu ll dose (MODERNA) Cecilia Whitsel POLYMERIZATION SUPERVISOR.COTTON INSPECTOR Work Phone: [facility] 07-11-2020 COVID-19 vaccine, fu ll dose (MODERNA) Cecilia Whitsel POLYMERIZATION SUPERVISOR.COTTON INSPECTOR Work Phone: [facility] 12-07-2019 influenza, injectabl e, quadrivalent, preservative free Cecilia Whitsel POLYMERIZATION SUPERVISOR.COTTON INSPECTOR Work Phone: [facility] 12-23-2018 influenza, injectabl e, quadrivalent, contains preservative Cecilia Whitsel POLYMERIZATION SUPERVISOR.COTTON INSPECTOR Work Phone: [facility] 12-19-2017 influenza, seasonal, injectable Cecilia Whitsel POLYMERIZATION SUPERVISOR.COTTON INSPECTOR Work Phone: [facility] 12-06-2012 tetanus toxoid, redu luis enrique diphtheria toxoid, and acellular pertussis vaccine, adsorbed Cecilia Whitsel POLYMERIZATION SUPERVISOR.COTTON INSPECTOR Work Phone: [facility] Payers Date Payer Category Payer Private Health Insurance [id number] 2023 Self-pay 2022 Unknown [id number] 2021 Unknown MMO MMO [employer] [id number] 2021-Present [phone] [address] [place] [address] PPO [id number] 2019 Unknown [id number] 2017 Unknown [id number] 1980 Unknown [id number] 27 Unknown [id number] 62 Unknown [id number] [id number] 62 Unknown [id number] [id number] 62 Unknown [id number] [id number] 62 Unknown [id number] [id number] 62 Unknown [id number] 2.16.840.1.352270.3.579.2.4 62 Unknown [id number] 2.16.840.1.428905.3.579.2.4 62 Unknown [id number] [id number] 62 Unknown [id number] [id number] 62 Unknown [id number] 62 Social History Date Type Detail Facility Start: 12-06-2012 End: 11-01-2024 Tobacco smoking status NHIS Ex-smoker [facility] Comment on above: QUIT 12 YEARS AGO Start: 08-29-2004 End: 08-29-2012 History of tobacco use Current smoker [facility] Start: 12-06-2012 End: 07-26-2022 Cigarettes smoked current (pack per day) - Reported 0.5 [facility] Start: 12-06-2012 End: 12-30-2023 Tobacco use and exposure Smokeless tobacco non-user [facility] Start: 05-19-2021 End: 01-14-2024 Alcohol intake Current drinker of alcohol (finding) [facility] Start: 01-25-2020 End: 07-26-2022 History SDOH Alcohol Frequency 1 [facility] Start: 10-09-2019 End: 07-26-2022 History SDOH Alcohol Std Drinks 2 [facility] Start: 02-14-2013 History SDOH Alcohol Comment rarely [facility] Start: 01-25-2020 End: 07-26-2022 History SDOH Social Connections Get Together 98 [facility] Start: 05-31-2019 End: 07-26-2022 History SDOH Social Connections Living 3 [facility] Start: 09-26-2019 End: 07-26-2022 History SDOH Physical Activity DPW 0 [facility] Start: 09-26-2019 End: 07-26-2022 History SDOH Financial 5 [facility] Start: 05-31-2019 Education 12 [facility] Start: 1980 Sex Assigned At Female [facility] Start: 02-06-2020 End: 02-11-2022 Exposure to SARS-CoV-2 (event) Not sure [facility] Start: 08-29-2004 End: 08-29-2012 History of tobacco use Cigarette Smoker [facility] Work Phone: Start: 07-26-2022 End: 08-18-2023 Social connection and isolation panel [facility] How often do you get together with friends or relatives? Patient refused [facility] Do you belong to any clubs or organizations such as moravian groups, unions, fraternal or athletic groups, or school groups? No [facility] Are you now , , , , never or living with a partner? [facility] How often to you hav e a drink containing alcohol? Monthly or less [facility] How many standard dr inks containing alcohol do you have on a typical day? 1 or 2 [facility] How often do you hav e 6 or more drinks on 1 occasion? Less than monthly [facility] Do you feel stress - tense, restless, nervous, or anxious, or unable to sleep at night because your mind is troubled all the time - these days [OSQ] Not at all [facility] (I/We) worried wheth er (my/our) food would run out before (I/we) got money to buy more. Never true [facility] Start: 01-26-2019 Gender identity Identifies as female gender (finding) [facility] Start: 01-26-2019 Sexual orientation Heterosexual (fin ding) [facility] How often to you hav e a drink containing alcohol? Never [facility] Sexual O[facility] Start: 02-23-2017 Sex Female (finding) [facility] Clinical Notes 02-14-2013 to 11-01-2024 Note Date & Type Note Facility 11-01-2024 Radiology Diagnostic study note [facility] Imaging Services [address] [place], [place] [id number] Brain/Head without Contrast MR#: [id number] Acct: [id number] Name: MICHAELLE MAYS Rep #: [id number] : 1980 F 44 From: Jatinder Mcgovern MD PCP: Dr. Wild Riggins MD Status: REG ER Study:Brain/Head without Contrast Date of Exa m: 11/01/24 Exam# [id number] Ordering Dr: Marcin Moore MD EXAM: CT BRAIN/HEAD WITHOUT CONTRAST; CT SPINE CERVICAL WITHOUT CONTRAST CLINICAL HISTORY: FALL, NECK PAIN COMPARISON: None. TECHNIQUE: Noncontrast CT images of the head and cervical spine with multiplanar reconstructions. Dose reduction techniques were used including intermediate exposure control (AEC),iterative reconstruction technique, and/or mA and/or KV dose adjustments based on patient's size. FINDINGS: HEAD: No acute intracranial hemorrhage, extra-axial collection, mass effect or evidence of acute infarct. Ventricles and subarachnoid spaces are normal in size. Orbital contents are unremarkable. Intact skull base and calvarium. Clear paranasal sinuses and mastoid air cells. CERVICAL SPINE: No acute fracture or subluxation. Straightening of the cervical lordosis may bepositional or can be seen with muscle spasm. Minimal degenerative changes are present most pronounced at C5-6. No prevertebral soft tissue swelling. Unremarkable paravertebral soft tissues. CT/Brain/Head without Contrast IMPRESSION: No acute intracranial or cervical spine traumatic findings. Reading Location: [facility] CC: Dr. Wild Riggins MD; Dr. Giulia Moore MD ~ Ventilation Worker: Signed [facility] 11-01-2024 Radiology Diagnostic study note [facility] Imaging Services [address] [place] [address] Spine Cervical without Contras MR#: [id number] Acct: [id number] Name: MICHAELLE MAYS Rep #: [id number] : 1980 F 44 From: Jatinder Mcgovern MD PCP: Dr. Wild Riggins MD Status: REG ER Study:Spine Cervical without Contras Date of Exam: 11/01/24 Exam# [id number] Ordering Dr: Marcin Moore MD EXAM: CT BRAIN/HEAD WITHOUT CONTRAST; CT SPINE CERVICAL WITHOUT CONTRAST CLINICAL HISTORY: FALL, NECK PAIN COMPARISON: None. TECHNIQUE: Noncontrast CT images of the head and cervical spine with multiplanar reconstructions. Dose reduction techniques were used including intermediate exposure control (AEC),iterative reconstruction technique, and/or mA and/or KV dose adjustments based on patient's size. FINDINGS: HEAD: No acute intracranial hemorrhage, extra-axial collection, mass effect or evidence of acute infarct. Ventricles and subarachnoid spaces are normal in size. Orbital contents are unremarkable. Intact skull base and calvarium. Clear paranasal sinuses and mastoid air cells. CERVICAL SPINE: No acute fracture or subluxation. Straightening of the cervical lordosis may bepositional or can be seen with muscle spasm. Minimal degenerative changes are present most pronounced at C5-6. No prevertebral soft tissue swelling. Unremarkable paravertebral soft tissues. CT/Spine Cervical without Contras IMPRESSION: No acute intracranial or cervical spine traumatic findings. Reading Location: [facility] CC: Dr. Wild Riggins MD; Dr. Giulia Moore MD ~ Ventilation Worker: Signed [facility] 10-02-2024 Evaluation + Plan note Extrac garcía from: Title:Clinical Document Author:DEMARCUS LARSEN Date:10/02/24 [place] ADMISSION HISTORY AN D PHYSICIAL CHIEF COMPLAINT: HISTORY OF PRESENT ILLNESS: REVIEW OF SYSTEMS: ACTIVE PROBLEMS: (1) Obese ([id number]) MEDICATIONS: Active Inpt Meds: None Active PRN Meds: None One Time Meds: None Active IV Meds: Lactated Ringers Infusion 1,000 mL (LR 1,000 mL) Start: 10/02/24 8:24:00 EDT, Rate: 50 mL/hr, 10/02/24 8:24:00 EDT ALLERGIES: (2) HAROLDO inhibitors Wellbutrin FAMILY HISTORY: SOCIAL HISTORY: PHYSICAL EXAM: VITALS: GquviiHqckJNOjoczQEFyV5EDU8MgayFw(kg) 10/02 08:4036.5--974928--81/63457.0 24 Hr Tmax: 36.5 at 10/02 08:40 [...] changes to the H&P unless noted below. [facility] 07-14-2025 Hospital Discharge instructions Patient Education 10/02/2024 [...] water added (diluted fruit juice). Eat bland, foqs-jg-iacvtk foods in small amounts as you are able. These foods include bananas, applesauce, rice, lean meats, toast, and crackers. Avoid fluids that contain a lot of sugar or caffeine, such as energy drinks, sports drinks, and soda. Avoid alcohol. Avoid spicy or fatty foods. General instructions Take zoso-qqd-rjyxzoj and prescription medicines only as told by your health care provider. Drink enough fluid to keep your urine pale yellow. Wash your hands often using soap and water. If soap and water are not available, use hand raw hide trimmer. Make sure that all people in your [...] eating and drinking to prevent dehydration. Take bjxf-fyp-cdooxbr and prescription medicines only as told by [...] 03/08/2006 Document Revised: 06/30/2019 Document Reviewed: 08/16/2018 [employer] Patient Education 2020 [employer] / [employer] 10/02/2024 09:47:42 Moderate Conscious Sedation, Adult, Care [...] until you are awake and alert. Take kyse-xyc-alrvgpt and prescription medicines only as told by [...] 12/27/2013 Document Revised: 02/18/2018 Document Reviewed: 06/27/2016 [employer] Patient Education 2020 [employer] / [employer] 10/02/2024 09:47:20 Colonoscopy, Adult, Care After Colonoscopy, [...] a slower pace than normal. ?Eat soft, ldfa-qy-gfmvuh foods. Take ldsy-tvo-pbtoyji or prescription medicines only as told by [...] 10/20/2004 Document Revised: 12/29/2017 Document Reviewed: 05/19/2016 [employer] Patient Education Vestec Follow Up Care 09/14/2024 07:12:48 With:DEMARCUS LARSEN MD Address: [facility] [address] [place] [address] [phone] When: only if needed Comments:NEXT COLONOSCOPY IN 10 YEARS [facility] 07-14-2025 Note Discharge Instructions Thank you for allowing [facility] to assist you with your healthcare needs. The following is importantdischarge information regarding your hospital visit. Your Care Team WILD RIGGINS MD What to do next Follow Up Appointments Follow Up with DEMARCUS LARSEN MD When:Only if needed Where:[facility] [address] [place] [address] [phone] Additional Information: NEXT COLONOSCOPY IN 10 YEARS [...] water added (diluted fruit juice). Eat bland, kczk-td-lwxsxp foods in small amounts as you are able. These foods include bananas, applesauce, rice, lean meats, toast, and crackers. Avoid fluids that contain a lot of sugar or caffeine, such as energy drinks, sports drinks, and soda. Avoid alcohol. Avoid spicy or fatty foods. General instructions Take hyxg-nyu-nubzsqu and prescription medicines only as told by your health care provider. Drink enough fluid to keep your urine pale yellow. Wash your hands often using soap and water. If soap and water are not available, use hand raw hide trimmer. Make sure that all people in your [...] eating and drinking to prevent dehydration. Take rgoq-nlk-mawivoy and prescription medicines only as told by [...] 03/08/2006 Document Revised: 06/30/2019 Document Reviewed: 08/16/2018 [employer] Patient Education 2020 [employer]. Moderate Conscious Sedation, Adult, Care After These [...] until you are awake and alert. Take wyur-nnx-nhsvbhn and prescription medicines only as told by [...] 12/27/2013 Document Revised: 02/18/2018 Document Reviewed: 06/27/2016 [employer] Patient Education [employer]. Colonoscopy, Adult, Care After This sheet gives [...] slower pace than normal. ? Eat soft, ejbt-lm-ndlxmt foods. Take srpo-agl-zzasrke or prescription medicines only as told by [...] 10/20/2004 Document Revised: 12/29/2017 Document Reviewed: 05/19/2016 [employer] Patient Education 2020 [employer] Additional Information VACCINATE! IT SAVES LIVES! Members of the community who have not yet received the COVID-19 vaccine and would like to receive it can visit one of [facility] vaccine clinics. There are many vaccine clinic locations within the [facility]. For locations and available times, please visit [email or web address].[place].gov/. It is important to note that some COVID mobile vaccine clinics are held outdoors and may be canceled in rainy or stormy conditions. To learn more about pediatric vaccinations (ages 5-11), we invite you to visit the [facility] webpage. https://[email or web address].org/[email or web address]-Hbwudrofscv-Gaxdlaqeuk-Dhurq-[email or web address] stions.htmlTo learn more about the COVID-19 vaccine, we invite you to visit the CDC website for a list of frequently asked questions.https://www.cdc.gov/coronavirus/2019-ncov/vaccines/faq.html [facility] Patient Portal Access Instructions: Stay connected with your healthcare team and access your personal medical information anytime with the [facility] Patient Portal. Please follow the directions below to create your [facility] account: 1.Access the email account you provided upon registration to the hospital/physician office.2.Look for an invitation email from [facility].3.Open the email and access the invitation link: AcceptInvitation to [facility].4.Fill in the required arroyo to create your account. To access your account, visit [facility]. Click the blue button labeled Access Patient Portal and then log in with the username and password that you created in the steps above. You will be able to view your test results, lab results, a summary of your visits, upcoming appointments and more. There is also a convenient messaging option where you can send secure messages to your p rovider. In addition, you will have the ability to download any documents or summaries to your computer and/or send the information securely to a physician. Remember that your healthcare information is confidential, so carefully consider who you will allowto register on the [facility] Patient Portal for access to your information. You can also access the [facility] Patient Portal on the [facility] jennifer. Simply click on Patient Portal and then log into your account. If you would like to receive a full copy of your medical records, please contact the [facility] Medical Records Department by calling [phone], Wednesday through Wednesday between 8 a.m. and [...] Call your local pharmacy or go to [email or web address] to find one close to you.3.Make use of household items: Use cat litter or old coffee grounds to dispose medications if other options arenot available. Mix your drugs with these household products, seal them in an airtight container andthrow it into the garbage. Call [facility]: [phone] to be sure your drugs can be [...] aware that I should contact my doctor. 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: Date/Time: Relationship to Patient: Witness Name/Signature: Date/Time: [facility]07-14-2025 Note Date of Service 10/02/2024 Procedure Name Screening colonoscopy Consent Taken before procedure Indication Screening colonoscopy Location [facility] Pre-Procedure Exam Screening colonoscopy Procedural Sedation [...] DEMARCUS LARSEN MD on 10/02/2024 09:44 AM [facility]07-14-2025 Anesthesiology Consult note Patient: MICHAELLE MAYS Age: 44 years Sex: Female : 1980 Associated Diagnoses: None Author: AZAEL LONG Assessment Postanesthesia assessment Vitals: Vital signs from [...] within normal limits. Digitally Signed by AZAEL LONGRECONDITIONING ASSOCIATE on 10/02/2024 09:38 AM [facility]07-14-2025 Note [place] ADMISSION HISTORY AND PHYSICIAL CHIEF COMPLAINT: HISTORY OF PRESENT ILLNESS: REVIEW OF SYSTEMS: ACTIVE PROBLEMS: (1) Obese ([id number]) MEDICATIONS: Active Inpt Meds: None Active PRN Meds: None One Time Meds: None Active IV Meds: Lactated Ringers Infusion 1,000 mL (LR 1,000 mL) Start: 10/02/24 8:24:00 EDT, Rate: 50 mL/hr, 10/02/24 8:24:00 EDT ALLERGIES: (2) HAROLDO inhibitors Wellbutrin FAMILY HISTORY: SOCIAL HISTORY: PHYSICAL EXAM: VITALS: HhukwiCfpjEVYtyirIRHkC4ZBK2UxcgOs(kg) 10/02 08:4036.5--179896--50/68579.0 24 Hr Tmax: 36.5 at 10/02 08:40 [...] DEMARCUS LARSEN MD on 10/02/2024 09:25 AM [facility]07-14-2025 Anesthesiology Consult note Patient: MICHAELLE MAYS Age: 44 years Sex: Female : 1980 Associated Diagnoses: None Author: AZAEL LONG APRN-RECONDITIONING ASSOCIATE Preoperative Information Time of last food or [...] Cancer Grandparent Stroke Grandparent Procedure history: Cholecystectomy ([id number]). Comments: 10/02/2024 8:34 JIMT - Ramírez Mosley RN LAPAROSCOPIC Social History: Social & Psychosocial Habits Alcohol 02/23/2017Risk Assessment: Denies Alcohol Use 10/02/2024 Use: Never Substance Abuse 02/23/2017Risk Assessment: Denies Substance Abuse 10/02/2024 Use: Current Type: Marijuana Frequency: Daily Comment: SMOKING - 10/02/2024 08:37 - Ramírez Mosley RN Tobacco 10/02/2024 Tobacco Use: Former smoker, quit more Comment: QUIT 12 YEARS AGO - 10/02/2024 08:36 - Ramírez Mosley RN Home/Environment 10/02/2024 Living situation: Home/Independent Nutrition/Health 10/02/2024 Type of diet: Regular Appetite Excellent Eating Difficulties None Physical Examination Vital Signs 10/02/2024 8:40 EDT Temperature Temporal Artery 36.5 DegC Peripheral Pulse Rate 80 bpm Respiratory Rate 12 br/min LOW Systolic Blood Pressure Non-Invasive 120 mmHg Diastolic Blood Pressure Non-Invasive 75 mmHg Vital Signs (last 24 hrs) Last Charted Temp Hybfkuyd38.5 DegC (OCT 02 08:40) UWX477 mmHg (OCT 02 08:40) DBP75 mmHg (OCT 02 08:40) Measurements from flowsheet : Measurements 10/02/2024 8:40 EDT Height 165.1 cm Height in inches 65 inch(es) Admission Weight 116 kg Weight Lbs 255.2 lb [place] Body Weight 57.00 kg Admission Body Mass [...] Attendee SN - CAt - Role Performed Process Developer SN - CAt - Role Performed Procedure Nurse SN - CAt - Role Performed RECONDITIONING ASSOCIATE SN - CAt - Role Performed Primary [...] Weight 116 kg Weight Lbs 255.2 lb [place] Body Weight 57.00 kg Admission Body Mass [...] Intake 10/01/2024 9:00 . Assessment and Plan [place] [employer] Anesthesiologists (ASA) physical status classification: Class III. Anesthetic Preoperative Plan Premedication: intravenous. Anesthetic technique: MAC. Induction: intravenously. Maintenance airway: Mask. Risks discussed: nausea, vomiting, headache, sore throat, dental injury, hypotension, allergic reaction, serious complications. Informed consent: signed by patient. Digitally Signed by AZAEL LONG on 10/02/2024 09:12 AM [facility]03-26-2025 Evaluation note* Diagnosis Onset Date Resolution Status Admit Date Cervical strain acute May 11:20am Thoracic myofascial strain acute June 14, 2024 11:20am Fatigue noneactive June 27 6:11am [facility] Work Phone: 1(869) 258-210812-12-2024 Instructions* Patient Instructions* Jacinta Green MD - [...] reactions. - Chart updated. [facility] History of Present illness Narrative* Jacinta Green [...] in November and went to ED in [place]. Decreased dose of doxepin to 25 mg [...] told she had to get it at [place] and was notable to do it. No [...] symptoms. ACT = 25 06/01/18 - Michaelle Post Tabatha is a 38 year old female here [...] wedding in 1 month. had had hives /. had been driving home from work- right [...] intermittently. unsure if exacerbates symptoms. Works at [employer]. NO FMH of angioedema. No liver or [...] Pets in the home: 2 cats [facility]: Gnbz-nt-boba carpeting Air conditioning: No air conditioning Heating: [...] HPV 04/2019 History of tobacco use Hives R&D Engineer Dr. Johns Morbid obesity (HCC) Plantar fasciitis [...] Behavior normal. Diagnostic Testing: Labs Latest Ref Rn 02/08/2023 WBC 3.70 - 11.00 k/uL 9.60 [...] Abs Lymph 1.00 - 4.00 k/uL 2.92 [place]% % 6.5 Abs [place] <0.87 k/uL 0.62 Eosin% % 0.9 Abs [...] arise. Jacinta Green MD Allergy and Immunology [facility] I spent a total of >40 minutes on the date of the service which included preparing to see the patient, upis-ib-iauy patient care, completing clinical documentation, obtaining and/or reviewing separately obtained history, performing a medically appropriate examination, counseling and educating the patient/family/caregiver, ordering medications, tests, or procedures, and independently interpreting results (not separately reported). documented in this [facility]Main [facility]12-[facility]24 NoteHNO ID: [id number] Author: JACINTA GREEN MD Service: ? Author [...] in November and went to ED in [place]. Decreased dose of doxepin to 25 mg [...] told she had to get it at [place] and was not able to do it. [...] symptoms. ACT = 25 06/01/18 - Michaelle Post Tabatha is a 38 year old female here [...] coughing, and wheezing sx. (more content not included)...[facility]11-07-2024 NoteHNO ID: [id number] Author: ?, ?, ? Service: ? Author Type: ? Type: Progress Notes Filed: 01/30/2024 16:27 Note Text: [facility] History of Present illness Narrative* Cele Alanis - 01/27/2024 4:04 PM EST Patient has been scheduled * Jacinta Green MD - 01/27/2024 3:30 PM EST Images from the original note were not included. Allergy and Immunology This is a virtual visit using [employer] Video Visit. It required patient- provider interaction for the medical decision making as documented below. I have communicated my name and active licensure. The patient's identity and physical location wereverified at the time of this visit. Either the patient or their legal associate sales representative has been informed of the risks [...] in November and went to ED in [place]. Decreased dose of doxepin to 25 mg [...] told she had to get it at [place] and was notable to do it. No [...] intermittently. unsure if exacerbates symptoms. Works at [employer]. NO FMH of angioedema. No liver or [...] Pets in the home: 2 cats Scott: Hfnb-gg-cqav carpeting Air conditioning: No air conditioning Heating: Forced hot air Basement: Dry basement Dust mite controls: Dust mite controls are not in place. Tobacco smoke: No exposure in the home PAST MEDICAL HISTORY Diagnosis Date Abnormal Pap smear of cervix Angio-edema 01/02/2014 ASCUS of cervix with negative high risk HPV 04/2019 History of tobacco use Hives R&D Engineer Dr. Johns Morbid obesity (HCC) Plantar fasciitis [...] is alert. Diagnostic Testing: Labs Latest Ref [facility] 02/08/2023 WBC 3.70 - 11.00 k/uL [...] Abs Lymph 1.00 - 4.00 k/uL 2.92 [place]% % 6.5 Abs [place] <0.87 k/uL 0.62 Eosin% % 0.9 Abs [...] to testing and evaluation. Message sent to key cutter. > Continue to avoid penicillins at this time. Discussed medication dosage, usage, side effects, and goals of treatment in detail. Follow-up: Return for PCN evaluation.. Patient advised to call or return sooner should current symptoms worsen or fail to improve or if new symptoms or problems arise. Jacinta Green MD Allergy and Immunology [facility] Medical Decision Making: Problems: Moderate: 2+ stable chronic illnesses Data: Unique test result(s) reviewed: 2 Unique test(s) ordered: 1 Risk: Moderate: Drug management Medical Decision Making Level: 4 - Moderate documented in [facility]24 NoteHNO ID: [id number] Author: JACINTA GREEN MD Service: ? Author Type: Physician Type: Progress Notes Filed: 01/30/2024 16:27 Note Text: Allergy and Immunology This is a virtual visit using [employer] Video Visit. It required patient-provider interaction for the medical decision making as documented below. I have communicated my name and active licensure. The patient's identity and physical location were verified at the time of this visit. Either the patient or their legal associate sales representative has been informed of the risks [...] in November and went to ED in [place]. Decreased dose of doxepin to 25 mg [...] told she had to get it at [place] and was not able to do it. [...] today for follow up. (more content not included)...[facility]11-05-2024 Telephone encounter Note* Telephone Encounter - Cele Alanis - 01/25/2024 12:07 PM EST Patient has been scheduled with Dr Green on 01/26 Virtually. [facility]11-05-2024 Miscellaneous Notes* Telephone Encounter - Cele Alanis [...] in person OV: 04/26/19 documented in this encounterMain [facility] Center11-05-[facility]24 Telephone encounter Note * Telephone Encounter - Cele Alanis - 01/25/2024 9:36 AM EST Left VM for patient to return call to schedule with another provider as Dr Andreas armas VV is not until 04/14 and her 1st in person is not until May [facility]11-05-2024 Telephone encounter Note* Telephone Encounter - Luisana Dewitt MA - 01/25/2024 8:04 AM EST [place]: 02/05/23 Last in person OV: 04/26/19 [facility]11-04-2024 Telephone encounter Note* Telephone Encounter - Luisana Dewitt MA - 01/24/2024 2:57 PM EST [place]: 02/05/23 Advised patient to schedule yearly appt as nothing is scheduled as of now. [facility]11-04-2024 Miscellaneous Notes* Telephone Encounter - Luisana Dewitt MA - 01/24/2024 2:57 PM EST [place]: 02/05/23 Advised patient to schedule yearly appt as nothing is scheduled as of now. documented in this encounterMain Campus Medical Center10-25-2024 NoteHNO ID: [id number] Author: MERLYN MEDEL PA-C Service: ? Author Type: Physician Communications Instructor Type: Progress Notes Filed: 01/14/2024 12:06 Note Text: This note was created using G10 Entertainmentriter. 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 Johns Morbid obesity (HCC) Plantar fasciitis [...] improving over the next week. Patient agreeable. [facility] History of Present illness Narrative* Merlyn Medel PA-C - 01/14/2024 12:04 PM EDT This note was created using [employer] Entertainment[employer]. 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 Johns Morbid obesity (HCC) Plantar fasciitis [...] agreeable. Merlyn Medel PA-C\ documented in this encounterMain Campus Medical Center10-10-2024 NoteHNO ID: [id number] Author: ESTELITA RIVERA PA Service: ? Author Type: Physician Communications Instructor Type: Progress Notes Filed: 12/30/2023 11:29 Note Text: This note was created using [employer]. 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 Johns Morbid obesity (HCC) Plantar fasciitis [...] detail warranting prompt ER evaluation. Estelita Rivera [facility]10-10-2024 History of Present illness Narrative* Estelita Rivera PA - 12/30/2023 11:24 AM EDT This note was created using [employer]. 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 Johns Morbid obesity (HCC) Plantar fasciitis [...] ER evaluation. SHIN George documented in this encounterMain Campus Medical Center09-24-2024 Telephone encounter Note * Telephone Encounter - Selam Ordonez LPN - 12/14/2023 10:27 AM EDT Patient following up with allergy regarding. Closing encounter. Selam Ordonez LPN [facility]09-24-2024 Miscellaneous Notes* Telephone Encounter - Selam Ordonez [...] appointment. Selam Ordonez LPN documented in this encounterMain Campus Medical Center09-16-2024 Telephone encounter Note * Telephone Encounter - Selam Ordonez LPN - 12/06/2023 4:12 PM EDT Patient seen in ED 12/02 for allergic reaction, Dr. Mcdaniel recommends 1 week ER follow up. Patient telephoned, message left to call back to schedule appointment. Selam Ordonez LPN [facility]07-16-2024 Note* Letter - Coordinator, Mammography - 10/05/2023 8:56 AM EDT October 05, 2023 PID: [id number] Michaelle Mays [address] [place] [address] Dear Ms. Mays, We are pleased to [...] report will be kept on file at [facility] as part of your permanent medical record and are available for your continuing care. Thank you for allowing us to help in meeting your health care needs. Sincerely, Dr. Zaragoza Interpreting Radiologist [facility] (Normal over 40) [facility]07-16-2024 Miscellaneous Notes* Letter - Coordinator, Mammography - 10/05/2023 8:56 AM EDT October 05, 2023 PID: [id number] Michaelle Mays [address] [place] [address] Dear Ms. Mays, We are pleased to [...] report will be kept on file at [facility] as part of your permanent medical record and are available for your continuing care. Thank you for allowing us to help in meeting your health care needs. Sincerely, Dr. Zaragoza Interpreting Radiologist [facility] (Normal over 40) documented in this encounterMain Campus Medical Center07-15-2024 History of Present illness Narrative* Emilia Hayden [...] PATIENT PRESENTS WITH AN IMPLANTABLE OR ATTACHED REGIONAL VICE PRESIDENT SURGICAL SALES: No RADIOLOGY DEPARTMENT: Mammography PERIPHERAL IV DATA: Not applicable SIGNED BY: Ruben Toribio October 04, 2023 2:31 PM documented in this encounterMain Campus Medical Center07-15-2024 NoteHNO ID: [id number] Author: EMILIA HAYDEN Mammo Tech Service: ? Author Type: Corn Picker Type: Progress Notes Filed: 10/04/2023 14:49 Note Text: Radiology Service Progress Note PATIENT NAME: Michealle Mays DATE OF SERVICE: October 04, 2023 [...] PATIENT PRESENTS WITH AN IMPLANTABLE OR ATTACHED REGIONAL VICE PRESIDENT SURGICAL SALES: No RADIOLOGY DEPARTMENT: Mammography PERIPHERAL IV DATA: Not applicable SIGNED BY: Emilia Hayden [employer] October 04, 2023 2:31 [facility]07-01-2024 NoteHNO ID: [id number] Author: ESTELITA RIVERA PA Service: ? Author Type: Physician Communications Instructor Type: Progress Notes Filed: 09/20/2023 12:53 Note Text: This note was created using xkoto. Subjective Michaelle Mays is a 43 year [...] detail warranting prompt ER evaluation. Estelita Rivera [facility]07-01-2024 History of Present illness Narrative* Estelita Rivera, PA - 09/20/2023 12:50 PM EDT This note was created using [employer]. Subjective Michaelle Mays is a 43 year [...] ER evaluation. SHIN George documented in this encounterMain Campus Medical Center06-04-2024 Telephone encounter Note * Telephone Encounter - Annemarie Dick PA-C - 08/24/2023 9:09 AM EDT Patient has not been seen in our office in over a year, with her last refill request I informed herthat she really may need to make a follow-up with orthopedics or obtain additional refills from herPCP, see Epic. [facility]06-04-2024 Miscellaneous Notes* Telephone Encounter - Annemarie Dick PA-C - 08/24/2023 9:09 AM EDT Patient has not been seen in our office in over a year, with her last refill request I informed herthat she really may need to make a follow-up with orthopedics or obtain additional refills from herPCP, see Epic. documented in this encounterMain Campus Medical Center05-29-2024 NoteHNO ID: [id number] Author: JAZZ WRIGHT APRN.COTTON INSPECTOR Service: ? Author Type: Nurse Practitioner Type: [...] landed outstretched onto some boxes. Seen in [facility] on 08/04/2023 and had xray completed. [...] No radiographic evidence of acute osseous injury. Ventilation Worker: NICOLA Transcribe Date/Time: Aug 04 2023 9:44A [...] HPV 04/2019 History of tobacco use Hives R&D Engineer Dr. Johns Morbid obesity (HCC) Plantar fasciitis [...] ER with red flag symptoms Jazz Wright APRN.COTTON INSPECTOR Prescription instructions reviewed with patient as applicable. Patient advised if symptoms do not improve or if symptoms worsen sooner, to contact their primary care physician. Potential red flag symptoms discussed with the patient. Reviewed appropriate action plan to take if red flag symptoms occur. Patien (more content not included)...[facility]05-29-2024 History of Present illness Narrative* Jazz Wright APRN.CNP - 08/18/2023 1:29 PM EDT 08/18/2023 Patient presents with: Pain: Right arm and shoulder pain from fall in June SUBJECTIVE: This is a 43 year old that is here today for Above Complaints.. In June while carrying laundry stepped into husbands hiralr renata and fell face forward. Reports right arm landed outstretched onto some boxes. [facility] and had xray completed. [...] No radiographic evidence of acute osseous injury. Ventilation Worker: PSCB Transcribe Date/Time: Aug 04 2023 9:44A Dictated [...] HPV 04/2019 History of tobacco use Hives R&D Engineer Dr. Johns Morbid obesity (HCC) Plantar fasciitis [...] to ER with red flag symptoms Jazz Podlogclaire, POLYMERIZATION SUPERVISOR.COTTON INSPECTOR Prescription instructions reviewed with patient as applicable. [...] Level: 3 - Low documented in this encounterMain Campus Medical Center05-20-2024 Telephone encounter Note * Telephone Encounter - Essence Chaves - 08/09/2023 9:21 AM EDT GALLO read. Closing encounter [facility]05-20-2024 Miscellaneous Notes* Telephone Encounter - Essence Chaves [...] the department mayassist her. documented in this encounterMain Campus Medical Center05-15-2024 Telephone encounter Note * Telephone Encounter - [...] the pool so the department mayassist her. [facility]05-15-2024 History of Present illness Narrative* Jerzy Clay RT(Katya) - 08/04/2023 9:20 AM EDT Radiology Service [...] PATIENT PRESENTS WITH AN IMPLANTABLE OR ATTACHED REGIONAL VICE PRESIDENT SURGICAL SALES: No RADIOLOGY DEPARTMENT: General X-ray: Exam(s) Completed: Upper Extremity X- Ray(s): Shoulder, AP / TRUE AP / AXILLARY right PERIPHERAL IV DATA: Not applicable SIGNED BY: ROBEL Neal) August 04, 2023 9:29 AM documented in this encounterMain Campus Medical Center05-15-2024 NoteHNO ID: [id number] Author: JERZY CLAY RT(R) Service: Radiology Author [...] PATIENT PRESENTS WITH AN IMPLANTABLE OR ATTACHED REGIONAL VICE PRESIDENT SURGICAL SALES: No RADIOLOGY DEPARTMENT: General X-ray: Exam(s) Completed: Upper Extremity X-Ray(s): Shoulder, AP / TRUE AP / AXILLARY right PERIPHERAL IV DATA: Not applicable SIGNED BY: RT Val(R) August 04, 2023 9:29 [facility]05-15-2024 NoteHNO ID: [id number] Author: ESTELITA RIVERA PA Service: ? Author Type: Physician Communications Instructor Type: Progress Notes Filed: 08/04/2023 09:53 Note Text: This note was created using xkoto. 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 Johns Morbid obesity (HCC) Plantar fasciitis Primary osteoarthritis of right knee PAST SURGICAL HISTORY Procedure Laterality Date INDUCED HX 2009 LAPAROSCOPY SURG CHOLECYSTECTOMY 2013 Cholecystectomy, lap PAST SURGICAL HISTORY OF 1999 vaginal wart removal VAGINOSCOPY 2017 ALLERGIES Haroldo [...] shoulder. Normal ROM elbow and wrist. Normal travel attendants strength. Normal sensation right upper extremity. Pulses [...] detail warranting prompt ER evaluation. Estelita Rivera [facility]05-15-2024 History of Present illness Narrative* Estelita Rivera, PA - 08/04/2023 9:15 AM EDT This note was created using Soundstacheter. 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 Johns Morbid obesity (HCC) Plantar fasciitis [...] shoulder. Normal ROM elbow and wrist. Normal travel attendants strength. Normal sensationright upper extremity. Pulses 2+. [...] ER evaluation. SHIN George documented in this encounterMain Campus Medical Center05-07-2024 Telephone encounter Note * Telephone Encounter - Annemarie Dick PA-C - 07/27/2023 2:55 PM EDT Patient has not been seen in our office in over a year, I did provide her with 1 more refill. She will either need to schedule a follow-up with us and/or discuss with her PCP additional refills of this medication. [facility]05-07-2024 Miscellaneous Notes* Telephone Encounter - Annemarie Dick PA-C - 07/27/2023 2:55 PM EDT Patient has not been seen in our office in over a year, I did provide her with 1 more refill. She will either need to schedule a follow-up with us and/or discuss with her PCP additional refills of this medication. documented in this encounterMain Campus Medical Center05-07-2024 NoteHNO ID: [id number] Author: EULALIA SKINNER APRN.COTTON INSPECTOR Service: ? Author Type: Nurse Practitioner Type: [...] history is provided by the patient. No speech language pathologist was used. Abdominal Pain This is a [...] HPV 04/2019 History of tobacco use Hives R&D Engineer Dr. Johns Morbid obesity (HCC) Plantar fasciitis [...] or posterior o (more content not included)... [facility]05-07-2024 History of Present illness Narrative* Skinner EulaliaNEDRA altamirano.COTTON INSPECTOR - 07/27/2023 12:51 PM EDT This note was created using G[employer] Entertainmentriter. Subjective Michaelle Mays is a 43 year [...] history is provided by the patient. No speech language pathologist was used. Abdominal Pain This is a [...] HPV 04/2019 History of tobacco use Hives R&D Engineer Dr. Johns Morbid obesity (HCC) Plantar fasciitis Primary osteoarthritis of right knee PAST SURGICAL HISTORY Procedure Laterality Date INDUCED HX 2008 LAPAROSCOPY SURG CHOLECYSTECTOMY 2013 Cholecystectomy, lap PAST [...] treatment with Pepcid 20 mg QD - Gove low residue diet - Follow up in 2 days or sooner if worsening of symptoms Discussed red flags and reasons to seek ED Work note provided Eulalia Skinner APRN.ALMAS documented in this encounterMain Campus Medical Center04-21-2024 NoteHNO ID: [id number] Author: EULALIA SKINNER APRN.CNP Service: ? Author Type: Nurse Practitioner Type: [...] history is provided by the patient. No speech language pathologist was used. Musculoskeletal Problem This is a [...] HPV 04/2019 History of tobacco use Hives R&D Engineer Dr. Johns Morbid obesity (HCC) Plantar fasciitis [...] are equal, round, and (more content not included)...[facility]04-21-2024 History of Present illness Narrative* Eulalia Skinner APRN.COTTON INSPECTOR - 07/11/2023 8:15 AM EDT This note was created using G10 Entertainmentriter. Subjective Michaelle Mays is a 43 year [...] history is provided by the patient. No speech language pathologist was used. Musculoskeletal Problem This is a [...] HPV 04/2019 History of tobacco use Hives R&D Engineer Dr. Johns Morbid obesity (HCC) Plantar fasciitis [...] in August Discussed red flags Eulalia Skinner APRN.COTTON INSPECTOR documented in this encounterMain Campus Medical Center04-10-2024 NoteHNO ID: [id number] Author: ESTELITA RIVERA PA Service: ? Author Type: Physician Communications Instructor Type: Progress Notes Filed: 06/30/2023 07:33 Note Text: This note was created using G10 Entertainmentriter. 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 Johns Morbid obesity (HCC) Plantar fasciitis [...] detail warranting prompt ER evaluation. Estelita Rivera [facility]04-10-2024 History of Present illness Narrative* Estelita Rivera PA - 06/30/2023 7:31 AM EDT This note was created using G10 Entertainmentriter. 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 Johns Morbid obesity (HCC) Plantar fasciitis [...] ER evaluation. SHIN George documented in this encounterMain Campus Medical Center04-10-2024 Instructions* Patient Instructions* Estelita Rivera PA - 06/30/2023 7:29 AM EDT BRAT DIET (may eat any of the following as tolerated) Bananas Applesauce Silesia Saltine Crackers Animal Crackers Pretzels Oatmeal Unsweetened Dry Cereal (Rice Krispies, Cheerios) Plain Baked or Boiled Potato Plain White Rice Plain Noodles All clear liquid listed below CLEAR LIQUID DIET hour) Broth Jello Popsicles Pedialyte Gatorade NO Milk NO Dairy Products documented in this encounterMain Campus Medical Center03-04-2024 NoteHNO ID: [id number] Author: JAZZ WRIGHT APRN.COTTON INSPECTOR Service: ? 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 Johns Morbid obesity (HCC) Plantar fasciitis [...] Vaccine(1) due on 11/20/2022 Covid-19 Vaccine(5 - 2022-24 season) due on 11/20/2022 DTaP,Tdap,Td Vaccine(2 - [...] flag symptoms - CONSULT TO DERMATOLOGY Jazz BaconlogNEDRA rangel.ALMAS Prescription instructions reviewed with patient as applicable. 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 Johns Morbid obesity (HCC) Plantar fasciitis [...] flag symptoms - CONSULT TO DERMATOLOGY Jazz BaconlogNEDRA rangel.COTTON INSPECTOR Prescription instructions reviewed with patient as applicable. [...] Level: 3 - Low documented in this encounterMain Campus Medical Center03-03-2024 NoteHNO ID: [id number] Author: MERLYN MEDEL PA-C Service: ? Author Type: Physician Communications Instructor Type: Progress Notes Filed: 05/23/2023 08:23 Note Text: This note was created using NoteWriter. 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 Johns Morbid obesity (HCC) Plantar fasciitis [...] the third time this has happened. SHIN [facility]03-03-2024 History of Present illness Narrative* Merlyn Medel PA-C - 05/23/2023 8:21 AM EST Images from the original note were not included. This note was created using Soundstacheter. 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 Johns Morbid obesity (HCC) Plantar fasciitis [...] happened. Merlyn Medel PA-C documented in this encounterMain Campus Medical Center02-29-2024 NoteHNO ID: [id number] Author: KOTA LACY APRN.COTTON INSPECTOR Service: ? 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 Johns Morbid obesity (HCC) Plantar fasciitis [...] - INFLUENZA A&B MOLECULAR (POC) Kota Lacy APRN.COTTON INSPECTOR documented in this encounterMain Campus Medical Center02-22-2024 NoteHNO ID: [id number] Author: KOTA VYAS MD Service: ? 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 Johns Morbid obesity (HCC) Plantar fasciitis [...] external genitalia normal, normal Bartholin's glands, urethra, Goodville's glands, no vulvar lesions, no cervical lesions, [...] year or sooner as needed Kota Vyas [facility]02-22-2024 History of Present illness Narrative* Kota Vyas [...] L0 SAB0 IAB1 Ectopic0 Multiple0 Live Births0 Corporate Secretary History LMP: 04/26/2023, Drug Induced Amenorrhea Age at Menarche: Age at First : Age at Menopause: Corporate Secretary History Comments: Sexual Activity: Yes; Male Contraception: Pill PAST MEDICAL HISTORY Diagnosis Date Abnormal Pap smear of cervix Angio-edema 01/02/2014 ASCUS of cervix with negative high risk HPV 04/2019 History of tobacco use Hives R&D Engineer Dr. Johns Morbid obesity (HCC) Plantar fasciitis Primary osteoarthritis of right knee PAST SURGICAL HISTORY Procedure Laterality Date INDUCED HX 2009 LAPAROSCOPY SURG CHOLECYSTECTOMY 2013 Cholecystectomy, lap PAST SURGICAL HISTORY OF 1999 vaginal wart removal VAGINOSCOPY 2017 FAMILY HISTORY [...] external genitalia normal, normal Bartholin's glands, urethra, Goodville's glands, no vulvar lesions, no cervical lesions, [...] needed Kota Vyas MD documented in this encounterMain Campus Medical Center02-12-2024 Miscellaneous Notes* Telephone Encounter - Tahira Sy [...] pharmacy. No need to notify patient. Tahira Sy, RN documented in this encounterMain Campus Medical Center01-08-2024 NoteHNO ID: [id number] Author: MAXIMUS WYATT APRN.COTTON INSPECTOR Service: ? 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 Johns Morbid obesity (HCC) Plantar fasciitis [...] Patient agreeable to treatment plan. Maximus Wyatt APRN.[facility]MASK[facility]01-02-2024 NoteHNO ID: [id number] Author: Esme Feliz APRN.ALMAS Service: ? Author Type: Nurse Practitioner Type: Progress Notes Filed: 03/23/2023 7:37 AM Note Text: Subjective The history is provided by the patient. No speech language pathologist was used. HPI Michaelle Mays is a [...] HPV 04/2019 History of tobacco use Hives R&D Engineer Dr. Johsn Morbid obesity (HCC) Plantar fasciitis Primary osteoarthritis of right knee I have confirmed and edited as necessary, the [facility] Review of Systems Constitutional: Positive for [...] in 12-24 hours with results, available on SonoPlot Considering paxlovid if positive. Will need rx sent in, patient given information on after visit about paxlovid. Diagnosis and treatment plan were discussed and questions were answered to the patient's satisfaction. Pt acknowledged understanding of concepts and follow up plan. Specific signs and symptoms that would indicate the need for higher level of care were discussed in detail warranting prompt ER evaluation. Esme Feliz APRN.[facility]12-21-2023 Miscellaneous Notes* Addendum Note - Cheng Mcdaniel MD - 03/11/2023 11:38 AM ESTAddended by: CHENG MCDANIEL on: 03/11/2023 11:38 AM Modules accepted: Orders documented in this encounterMain Campus Medical Center12-21-2023 History of Present illness Narrative* Cheng Mcdaniel [...] HPV 04/2019 History of tobacco use Hives R&D Engineer Dr. Johns Morbid obesity (HCC) Plantar fasciitis [...] Influenza Vaccine(1) due on 11/20/2022 Covid-19 Vaccine( season) due on 11/20/2022 DTaP,Tdap,Td [...] ALUMINUM Cheng Mcdaniel MD documented in this encounterMain Campus Medical Center12-05-2023 History of Present illness Narrative* Lora March APRN.COTTON INSPECTOR - 02/23/2023 11:08 AM EST SUBJECTIVE: Michaelle [...] HPV 04/2019 History of tobacco use Hives R&D Engineer Dr. Johns Morbid obesity (HCC) Plantar fasciitis [...] - ICD9: 079.99, ICD10: B34.9 Lora March APRN.COTTON INSPECTOR documented in this encounterMain Campus Medical Center09-13-2023 History of Present illness Narrative* Micah Pete [...] provided. Micah Pete MD documented in this encounterMain Campus Medical Center09-13-2023 Miscellaneous Notes* Telephone Encounter - Patti Aguilar RN - 12/02/2022 9:36 AM EDT [place]-02/02/22 Annual appointment scheduled 02/05/23 Patient phones requesting refills as follows: Requested Prescriptions Pending Prescriptions Disp Refills montelukast (SINGULAIR) 10 mg tablet 90 tablet 0 Sig: Take 1 tablet by mouth daily at bedtime. Please review and advise. Patti Aguilar RN documented in this encounterMain Campus Medical Center09-11-2023 Miscellaneous Notes* Telephone Encounter - Luisana Dewitt - 11/30/2022 11:12 AM EDT [place]:02/02/22 Next OV: 02/05/23 Patient phones requesting refills as follows: Requested Prescriptions Pending Prescriptions Disp Refills doxepin capsule 50 mg 30 capsule 1 Sig: Take 1 capsule by mouth daily at bedtime. Please review and advise. Luisana Dewitt documented in this encounterMain [facility]08-28-[facility]23 History of Present illness Narrative* Kota Lacy APRN.COTTON INSPECTOR - 11/16/2022 12:27 PM EDT Subjective HPI [...] HPV 04/2019 History of tobacco use Hives R&D Engineer Dr. Johns Morbid obesity (HCC) Plantar fasciitis [...] with pcp if s/s persists Kota Lacy APRN.COTTON INSPECTOR documented in this encounterMain [facility] Center08-17-2023 Miscellaneous Notes* Telephone Encounter - Luisana Dewitt - 11/05/2022 9:54 AM EDT [place]: 02/02/22 Pharmacy phones requesting refills as follows: Requested Prescriptions Pending Prescriptions Disp Refills montelukast (SINGULAIR) 10 mg tablet [Pharmacy Med Name: MONTELUKAST SOD 10 MG TABLET] 90 tablet 0 Sig: TAKE 1 TABLET BY MOUTH EVERYDAY AT BEDTIME Please review and advise. Luisana Dewitt documented in this encounterMain Campus Medical Center07-26-2023 History of Present illness Narrative* Treva Reynolds [...] basis. Treva Reynolds MD documented in this encounterMain Campus Medical Center07-14-2023 History of Present illness Narrative* Alondra Swartz RT(R) - 10/02/2022 2:30 PM EDT Radiology [...] 02, 2022 2:20 PM documented in this encounterMain Campus Medical Center06-19-2023 History of Present illness Narrative* Jazz Wright APRN.COTTON INSPECTOR - 09/07/2022 2:03 PM EDT 09/07/2022 Patient [...] HPV 04/2019 History of tobacco use Hives R&D Engineer Dr. Johns Morbid obesity (HCC) Plantar fasciitis [...] ER with red flag symptoms Jazz Wright APRN.ALMAS Prescription instructions reviewed with patient as applicable. [...] which included preparing to see the patient, [id number] patient care, completing clinical documentation, obtaining and/or reviewing separately obtained history, performing a medically appropriate examination, counseling and educating the pat ient/family/caregiver, and ordering medications, tests, or procedures. documented in this encounterMain Campus Medical Center05-10-2023 History of Present illness Narrative* Jazz Wright [...] HPV 04/2019 History of tobacco use Hives R&D Engineer Dr. Johns Morbid obesity (HCC) Plantar fasciitis [...] blister protected - plan as above Jazz Podlogclaire, NEDRA.COTTON INSPECTOR Prescription instructions reviewed with patient as applicable. [...] which included preparing to see the patient, [id number] patient care, completing clinical documentation, obtaining and/or reviewing separately obtained history, performing a medically appropriate examination, and counseling and educating the patient/family/caregiver. documented in this encounterMain Campus Medical Center05-08-2023 Instructions* Patient Instructions* Jazz Wright APRN.CNP - 07/27/2022 8:08 AM EDT Follow-up Wednesday documented in this encounterMain Campus Medical Center05-08-2023 History of Present illness Narrative* Jazz Wright [...] HPV 04/2019 History of tobacco use Hives R&D Engineer Dr. Johns Morbid obesity (HCC) Plantar fasciitis [...] ER with red flag symptoms Jazz Wright APRN.LAMAS Prescription instructions reviewed with patient as applicable. [...] which included preparing to see the patient, [id number] patient care, completing clinical documentation, obtaining and/or reviewing separately obtained history, performing a medically appropriate examination, counseling and educating the pat ient/family/caregiver, and ordering medications, tests, or procedures. documented in this encounterMain Campus Medical Center05-03-2023 Miscellaneous Notes* Telephone Encounter - Eulalia Skinner APRN.CNP - 07/22/2022 4:15 PM EDT Speak with patient. In review of Epic, patient has taken Keflex in 2019. Reached out and discussed with patient. Speak with [facility], and they are aware and will now fill for patient. * Telephone Encounter - Sunshine Jewell RN - 07/22/2022 4:07 PM EDT Patient calls to report that [facility] won't dispense the cephalexin as prescribed d/t allergy toPCN. Patient reports that allergy is hives and all over body swelling. Patient asking for another antibiotic to be sent to [facility]. Please call patient back at [phone] once addressed. Sunshine Jewell RN documented in this encounterMain Campus Medical Center04-21-2023 Miscellaneous Notes* Telephone Encounter - Nina Austin [...] asking if letter can be faxed to [phone] Att: Candie. Please advise. documented in this encounterMain Campus Medical Center02-21-2023 History of Present illness Narrative* Ingrid Ponce LPN - 2022 9:53 AM EST Patient presents for EKG per Dr Johns. Denies any problems at this time. Tolerated procedure well. Ingrid Ponce LPN documented in this encounterMain Campus Medical Center02-15-2023 History of Present illness Narrative* Micah Jo MD - 05/06/2022 9:22 AM EST Michaelle Mays is a 41 year old who presents for her annual gynecologic exam. 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 Johns Morbid obesity (HCC) Plantar fasciitis [...] external genitalia normal, normal Bartholin's glands, urethra, [place]'s glands, no vulvar lesions, no cervical lesions, [...] 5) Micah Jo MD documented in this encounterMain Campus Medical Center02-02-2023 History of Present illness Narrative* Jerzy Clay [...] 23, 2022 9:07 AM documented in this encounterMain Campus Medical Center12-16-2022 History of Present illness Narrative* Eulalia Skinner APRN.COTTON INSPECTOR - 03/06/2022 1:29 PM EST This note [...] history is provided by the patient. No speech language pathologist was used. Neck Pain This is a [...] HPV 04/2019 History of tobacco use Hives R&D Engineer Dr. Johns Morbid obesity (HCC) Plantar fasciitis [...] note Follow up with PCP Eulalia Skinner APRN.COTTON INSPECTOR documented in this encounterMain Campus Medical Center11-14-2022 History of Present illness Narrative* Cele Dillard Pss - 02/02/2022 10:36 AM EST LVM for patient to return call to schedule ANNUAL FOLLOW UP FOR 01/2023 * Veronique Johns MD - 02/02/2022 8:58 AM EST VIRTUAL VISIT PROGRESS NOTE This is a virtual visit using [employer] video visit. It required patient-provider interaction for themedical decision making as documented below. HPI February 02, 2022 Michaelle Sincere Mays presents for VIRTUAL VISIT follow up. no hives since last seen. 1 or 2 hives at weather change Taking doxepin and singulair. Tried to get EKG- they had scheduled it but they told she had to get it at [place] and was notable to do it. No [...] intermittently. unsure if exacerbates symptoms. Works at [employer]. NO FMH of angioedema. No liver or [...] Pets in the home: 2 cats Scott: [id number]-[id number]-iqxx carpeting Air conditioning: No air conditioning Heating: [...] HPV 04/2019 History of tobacco use Hives R&D Engineer Dr. Johns Morbid obesity (HCC) Plantar fasciitis [...] Abs Lymph 1.00 - 4.00 k/uL 2.78 [place]% % 5.7 Abs [place] <0.87 k/uL 0.45 Eosin% % 2.1 Abs [...] which included preparing to see the patient, [id number] patient care, completing clinical documentation and ordering medications, tests, or procedures. Veronique Johns MD documented in this encounterMain Campus Medical Center09-13-2022 History of Present illness Narrative* Merlyn Medel PA-C - 12/02/2021 3:10 PM EDT This note was created using [employer]. Gaby Mays is a 41 year old female. [...] HPV 04/2019 History of tobacco use Hives R&D Engineer Dr. Johns Morbid obesity (HCC) Plantar fasciitis [...] agreeable. Merlyn Medel PA-C documented in this encounterMain Campus Medical Center07-11-2022 Miscellaneous Notes* Letter - Mammography Coordinator - 09/29/2021 10:37 AM EDT September 29, 2021 PID: [id number] Michaelle Mays [address] [place] [address] Dear Ms. Mays, We are pleased to [...] report [facility] permanent medical record and are available for your continuing care. Thank you for allowing us to help in meeting your health care needs. Sincerely, Dr. Zaragoza Interpreting Radiologist [facility] (Normal over 40) documented in this encounterMain Campus Medical Center07-11-2022 History of Present illness Narrative* Alondra Swartz RT(R) - 09/29/2021 7:30 AM EDT Radiology Service Progress Note PATIENT NAME: Michaelle Sincere Mays DATE OF SERVICE: September 29, 2021 [...] DATA: Not applicable SIGNED BY: RT Henrry(R) September 29, 2021 7:29 AM documented in this encounterMain Campus Medical Center06-13-2022 Miscellaneous Notes* Telephone Encounter - Aye Luis LPN - 09/01/2021 11:37 AM EDT There is a current RX on file with this pharmacy Closed encopunter request documented in this encounterMain Campus Medical Center06-07-2022 Instructions* Patient Instructions* Esme Feliz APRN.COTTON INSPECTOR - 08/26/2021 12:07 PM EDT How is [...] or dark tarry stools. documented in this encounterMain Campus Medical Center06-07-2022 History of Present illness Narrative* Esme Feliz APRN.CNP - 08/26/2021 12:03 PM EDT Subjective The history is provided by the patient. No speech language pathologist was used. CORTEZ Mays is a 41 [...] HPV 04/2019 History of tobacco use Hives R&D Engineer Dr. Johns Morbid obesity (HCC) Plantar fasciitis Primary osteoarthritis of right knee I have confirmed and edited as necessary, the [facility] Review of Systems Constitutional: Negative for [...] evaluation. Esme Feliz APRN.ALMAS documented in this encounterMain Campus Medical Center05-20-2022 Instructions* Patient Instructions* Veronique Johns MD - [...] help prevent mucus build-up. documented in this encounterMain Campus Medical Center05-20-2022 Nurse Note* Patti Aguilar RN - 08/08/2021 3:30 PM EDT Attempted to contact patient on 08/08/2021 Result: left message on patient's voicemail reminding of virtual visit appointment documented in this encounterMain Campus Medical Center05-20-2022 History of Present illness Narrative* Veronique Johns MD - 08/08/2021 11:59 AM EDT VIRTUAL VISIT PROGRESS NOTE This is a virtual visit using [employer] video visit. It required patient-provider interaction for [...] - Michaelle Negron presents for follow up. with tongue swelling. No illness. Midnight had [...] intermittently. unsure if exacerbates symptoms. Works at [employer]. NO FMH of angioedema. No liver or [...] Pets in the home: 2 cats Scott: Jsmg-mb-swty carpeting Air conditioning: No air conditioning Heating: [...] HPV 04/2019 History of tobacco use Hives R&D Engineer Dr. Johns Morbid obesity (HCC) Plantar fasciitis [...] Abs Lymph 1.00 - 4.00 k/uL 2.78 [place]% % 5.7 Abs [place] <0.87 k/uL 0.45 Eosin% % 2.1 Abs [...] which included preparing to see the patient, macm-[id number] patient care, completing clinical documentation and ordering medications, tests, or procedures. eVronique Johns MD documented in this encounterMain Campus Medical Center05-02-2022 Miscellaneous Notes* Telephone Encounter - Luisana Dewitt - 07/21/2021 9:27 AM EDT [place]: 04/26/20 Next OV: 08/08/21 Pharmacy phones requesting refills as follows: Pending Prescriptions Disp Refills MONTELUKAST 10 MG TABLET 30 tablet 0 Sig: TAKE 1 TABLET BY MOUTH EVERYDAY AT BEDTIME SAVANA: Yes Please review and advise. Luisana Dewitt documented in this encounterMain Campus Medical Center02-03-2021 History of Present illness Narrative* Anastacio Richard (Rt), Kiko - 04/24/2020 1:30 PM EST Radiology Service [...] 24, 2020 1:32 PM documented in this encounterMain Campus Medical Center12-17-2020 History of Present illness Narrative* Jerzy ClayRt), Tech - 03/07/2020 9:30 AM EST Radiology [...] 07, 2020 9:29 AM documented in this encounterMain Campus Medical Center11-26-2013 History of Past illness Narrative* Problem Noted Date Resolved Date Adult BMI 30+ 02/14/2013 07/02/2017 documented as of this encounter (statuses as of 07/21/2021) [address]26-2013 History of Past illness Narrative* Problem Noted Date Resolved Date Adult BMI 30+ 02/14/2013 07/02/2017 documented as of this encounter (statuses as of 08/08/2021) [address]26[address]2013 History of Past illness Narrative* Problem Noted Date Resolved Date Adult BMI 30+ 02/14/2013 07/02/2017 documented as of this encounter (statuses as of 08/26/2021) [address]26[address]2013 History of Past illness Narrative* Problem Noted Date Resolved Date Adult BMI 30+ 02/14/2013 07/02/2017 documented as of this encounter (statuses as of 09/01/2021) [address]26-2013 History of Past illness Narrative* Problem Noted Date Resolved Date Adult BMI 30+ 02/14/2013 07/02/2017 documented as of this encounter (statuses as of 09/09/2021) [place] [address]26-2013 History of Past illness Narrative* Problem Noted Date Resolved Date Adult BMI 30+ 02/14/2013 07/02/2017 documented as of this encounter (statuses as of 09/30/2021) [place] [address]2013 History of Past illness Narrative* Problem Noted Date Resolved Date Adult BMI 30+ 02/14/2013 07/02/2017 documented as of this encounter (statuses as of 10/01/2021) [address]26[address]2013 History of Past illness Narrative* Problem Noted Date Resolved Date Adult BMI 30+ 02/14/2013 07/02/2017 documented as of this encounter (statuses as of 12/02/2021) [place] [address]26[address]2013 History of Past illness Narrative* Problem Noted Date Resolved Date Adult BMI 30+ 02/14/2013 07/02/2017 documented as of this encounter (statuses as of 02/02/2022) [place] [address]26[address]2013 History of Past illness Narrative* Problem Noted Date Resolved Date Adult BMI 30+ 02/14/2013 07/02/2017 documented as of this encounter (statuses as of 03/04/2022) [place] [address]2013 History of Past illness Narrative* Problem Noted Date Resolved Date Adult BMI 30+ 02/14/2013 07/02/2017 documented as of this encounter (statuses as of 03/06/2022) [address]26[address]2013 History of Past illness Narrative* Problem Noted Date Resolved Date Adult BMI 30+ 02/14/2013 07/02/2017 documented as of this encounter (statuses as of 04/15/2022) [address]26[address]2013 History of Past illness Narrative* Problem Noted Date Resolved Date Adult BMI 30+ 02/14/2013 07/02/2017 documented as of this encounter (statuses as of 04/20/2022) [address]26[address]2013 History of Past illness Narrative* Problem Noted Date Resolved Date Adult BMI 30+ 02/14/2013 07/02/2017 documented as of this encounter (statuses as of 05/06/2022) [address]26[address]2013 History of Past illness Narrative* Problem Noted Date Resolved Date Adult BMI 30+ 02/14/2013 07/02/2017 documented as of this encounter (statuses as of 05/07/2022) [place] [address] History of Past illness Narrative* Problem Noted Date Resolved Date Adult BMI 30+ 02/14/2013 07/02/2017 documented as of this encounter (statuses as of 2022) [place] [address]2013 History of Past illness Narrative* Problem Noted Date Resolved Date Adult BMI 30+ 02/14/2013 07/02/2017 documented as of this encounter (statuses as of 05/14/2022) [address]26[address]2013 History of Past illness Narrative* Problem Noted Date Resolved Date Adult BMI 30+ 02/14/2013 07/02/2017 documented as of this encounter (statuses as of 07/10/2022) [place] [address] History of Past illness Narrative* Problem Noted Date Resolved Date Adult BMI 30+ 02/14/2013 07/02/2017 documented as of this encounter (statuses as of 07/23/2022) [address]26[address]2013 History of Past illness Narrative* Problem Noted Date Resolved Date Adult BMI 30+ 02/14/2013 07/02/2017 documented as of this encounter (statuses as of 07/27/2022) [address]26[address]2013 History of Past illness Narrative* Problem Noted Date Resolved Date Adult BMI 30+ 02/14/2013 07/02/2017 documented as of this encounter (statuses as of 07/29/2022) [address]26[address]2013 History of Past illness Narrative* Problem Noted Date Resolved Date Adult BMI 30+ 02/14/2013 07/02/2017 documented as of this encounter (statuses as of 08/24/2022) [address]26[address]2013 History of Past illness Narrative* Problem Noted Date Resolved Date Adult BMI 30+ 02/14/2013 07/02/2017 documented as of this encounter (statuses as of 09/08/2022) [address]26[address]2013 History of Past illness Narrative* Problem Noted Date Diagnosed Date Resolved Date Adult BMI 30+ 02/14/2013 07/02/2017 documented as of this encounter (statuses as of 10/15/2022) [address]26[address]2013 History of Past illness Narrative* Problem Noted Date Diagnosed Date Resolved Date Adult BMI 30+ 02/14/2013 07/02/2017 documented as of this encounter (statuses as of 11/05/2022) [place] [address] History of Past illness Narrative* Problem Noted Date Diagnosed Date Resolved Date Adult BMI 30+ 02/14/2013 07/02/2017 documented as of this encounter (statuses as of 11/16/2022) [place] [address]2013 History of Past illness Narrative* Problem Noted Date Diagnosed Date Resolved Date Adult BMI 30+ 02/14/2013 07/02/2017 documented as of this encounter (statuses as of 11/30/2022) [place] [address] History of Past illness Narrative* Problem Noted Date Diagnosed Date Resolved Date Adult BMI 30+ 02/14/2013 07/02/2017 documented as of this encounter (statuses as of 11/30/2022) [address]26[address]2013 History of Past illness Narrative* Problem Noted Date Diagnosed Date Resolved Date Adult BMI 30+ 02/14/2013 07/02/2017 documented as of this encounter (statuses as of 12/02/2022) [place] [address] History of Past illness Narrative* Problem Noted Date Diagnosed Date Resolved Date Adult BMI 30+ 02/14/2013 07/02/2017 documented as of this encounter (statuses as of 12/03/2022) [place] [address] History of Past illness Narrative* Problem Noted Date Diagnosed Date Resolved Date Adult BMI 30+ 02/14/2013 07/02/2017 documented as of this encounter (statuses as of 01/24/2023) [address]26[address]2013 History of Past illness Narrative* Problem Noted Date Diagnosed Date Resolved Date Adult BMI 30+ 02/14/2013 07/02/2017 documented as of this encounter (statuses as of 01/24/2023) [place] [address] History of Past illness Narrative* Problem Noted Date Diagnosed Date Resolved Date Adult BMI 30+ 02/14/2013 07/02/2017 documented as of this encounter (statuses as of 02/23/2023) [address]26[address]2013 History of Past illness Narrative* Problem Noted Date Diagnosed Date Resolved Date Adult BMI 30+ 02/14/2013 07/02/2017 documented as of this encounter (statuses as of 03/12/2023) [address]26[address]2013 History of Past illness Narrative* Problem Noted Date Diagnosed Date Resolved Date Adult BMI 30+ 02/14/2013 07/02/2017 documented as of this encounter (statuses as of 05/03/2023) [place] [address] History of Past illness Narrative* Problem Noted Date Diagnosed Date Resolved Date Adult BMI 30+ 02/14/2013 07/02/2017 documented as of this encounter (statuses as of 05/13/2023) [place] [address] History of Past illness Narrative* Problem Noted Date Diagnosed Date Resolved Date Adult BMI 30+ 02/14/2013 07/02/2017 documented as of this encounter (statuses as of 05/20/2023) [place] [address] History of Past illness Narrative* Problem Noted Date Diagnosed Date Resolved Date Adult BMI 30+ 02/14/2013 07/02/2017 documented as of this encounter (statuses as of 05/23/2023) [place] [address] History of Past illness Narrative* Problem Noted Date Diagnosed Date Resolved Date Adult BMI 30+ 02/14/2013 07/02/2017 documented as of this encounter (statuses as of 05/24/2023) [place] [address] History of Past illness Narrative* Problem Noted Date Diagnosed Date Resolved Date Adult BMI 30+ 02/14/2013 07/02/2017 documented as of this encounter (statuses as of 06/30/2023) [place] [address] History of Past illness Narrative* Problem Noted Date Diagnosed Date Resolved Date Adult BMI 30+ 02/14/2013 07/02/2017 documented as of this encounter (statuses as of 07/11/2023) [facility] note* Diagnosis Urticaria Urticaria, unspecified Angioedema, subsequent encounter Cough documented in this encounter [facility] note* Diagnosis Encounter for long-term (current) use of medications- Primary Encounter for long-term (current) use of other medications Urticaria Urticaria, unspecified Angioedema, subsequent encounter Cough [facility]* Diagnosis Nausea- Primary Nausea alone Diarrhea, unspecified type Abdominal cramping Abdominal pain, unspecified site documented [facility] this encounter [facility]* Diagnosis Primary osteoarthritis of right knee Primary localized osteoarthrosis, lower leg documented [facility] this [facility]* Diagnosis Encounter for screening mammogram for malignant neoplasm of breast Other screening mammogram [facility]* Diagnosis Diarrhea, unspecified type- Primary [facility] Diagnosis Urticaria- Primary Urticaria, unspecified Angioedema, subsequent encounter Encounter for long-term (current) use of medications Encounter for long-term (current) use of other medications [facility]* Diagnosis Strain of neck muscle, initial encounter- Primary [facility]* Diagnosis Right knee pain, unspecified chronicity- Primary [facility]* Diagnosis Primary osteoarthritis of right knee Primary localized osteoarthrosis, lower leg documented [facility] this [facility]* Diagnosis Encounter for screening mammogram for malignant neoplasm of breast- Primary Other screening mammogram Women's annual routine gynecological examination [facility] Diagnosis Medication refill Issue of repeat prescriptions Encounter for surveillance of contraceptive pills Surveillance of previously prescribed contraceptive pill documented in this encounter [facility] note* Diagnosis Encounter for long-term (current) use of medications Encounter for long-term (current) use of other medications [facility]* Diagnosis Skin infection- Primary Unspecified local infection of skin and subcutaneous tissue [facility]* Diagnosis Skin infection- Primary Unspecified local infection of skin and subcutaneous tissue Blister of skin documented in this encounter [facility] note* Diagnosis Acute left-sided low back pain without sciatica- Primary Blister of left hand, initial encounter documented in this encounter [facility] note* Diagnosis Impacted cerumen of left ear- Primary Impacted cerumen [facility]* Diagnosis Urticaria Urticaria, unspecified Angioedema, subsequent encounter Cough documented in this encounter [facility] note* Diagnosis Fatigue, unspecified type- Primary documented in this encounter [facility] note* Diagnosis Primary osteoarthritis of right knee Primary localized osteoarthrosis, lower leg [facility]* Diagnosis URI, acute- Primary Acute upper respiratory infections of unspecified site documented in this encounter [facility] note* Diagnosis Right knee pain, unspecified chronicity documented in this encounter [facility] note* Diagnosis Encounter for screening mammogram for malignant neoplasm of breast Other screening mammogram documented in this encounter [facility] note* Diagnosis Viral illness- Primary Unspecified viral infection, in conditions classified elsewhere and of unspecified site documented in this encounter [facility] note* Diagnosis Acute pain of right knee- Primary [facility] Diagnosis Urticaria Urticaria, unspecified Angioedema, subsequent encounter Cough [facility] Diagnosis Encounter for gynecological examination (general) (routine) without abnormal findings- Primary Medication refill Issue of repeat prescriptions Encounter for surveillance of contraceptive pills Surveillance of previously prescribed contraceptive pill documented in this encounter [facility] note* Diagnosis URI, acute- Primary Acute upper respiratory infections of unspecified site documented [facility]* Diagnosis Blister of left hand, initial encounter- Primary documented [facility]* Diagnosis Blister (nonthermal) of left hand, sequela- Primary [facility]* Diagnosis Diarrhea, unspecified type- Primary documented [facility] this [facility]* Diagnosis Blister of left hand excluding fingers, subsequent encounter- Primary [facility]* Diagnosis Primary osteoarthritis of right knee Primary localized osteoarthrosis, lower leg [facility] Diagnosis Encounter for screening mammogram for malignant neoplasm of breast- Primary Other screening mammogram documented [facility] this [facility]* Diagnosis Primary osteoarthritis of right knee Primary localized osteoarthrosis, lower leg [facility]* Diagnosis Pain of upper abdomen- Primary Abdominal pain, other specified site [facility]* Diagnosis Acute pain of right shoulder- Primary Acute pain of right shoulder documented [facility]* Diagnosis Acute pain of right shoulder- Primary [facility]* Diagnosis Primary osteoarthritis of right knee Primary localized osteoarthrosis, lower leg documented [facility]* Diagnosis Fatigue, unspecified type- Primary documented [facility]* Diagnosis Encounter for screening mammogram for malignant neoplasm of breast Other screening mammogram documented [facility]* Diagnosis Acute pain of right shoulder documented in this encounter [facility] note* Diagnosis Wrist injury, right, initial encounter [facility]* Diagnosis Strain of neck muscle, initial encounter- Primary documented in this encounter [facility] note* Diagnosis Viral URI- Primary Acute upper respiratory infections of unspecified site Sinus congestion Other diseases of nasal cavity and sinuses documented [facility]* Diagnosis Urticaria- Primary Urticaria, unspecified Angioedema, subsequent encounter Allergy to penicillin Personal history of allergy to penicillin documented in this encounter [facility] note* Diagnosis Allergy to penicillin- Primary Personal history of allergy to penicillin Urticaria Urticaria, unspecified Angioedema, subsequent encounter documented in this encounter [facility] noteNo assessment information availableWTrumbull [facility] Work Phone: Hospital course Narrative No data available for this section [facility] Hospital Discharge instructionsAdditional Instructions Your evaluation in the Emergency Department did not reveal any acute reason for admission. However, I want to emphasize that you may be early in the course of a disease process or illness even if it is not present. For this reason you should follow-up within 24 hours for reevaluation with either your primary care physician or if necessary back here in the Emergency Department. You should return to the Emergency Department immediately if your symptoms worsen or new symptoms develop.[facility] Work Phone: Reason for referral (narrative)* Outpatient Procedure (Routine) - Pending Review Specialty Diagnoses / Procedures Referred By Vandana interiano Referred To Contact [facility] [place] Diagnoses Encounter for long-term (current) use of medications Procedures ECG COMPLETE ECG ROUTINE ECG W/LEAST 12 LDS W/I&[place] [address] [address] [id number] [facility] [address] [place] [address] Referral ID Status Reason Start Date Expiration Date Visits Requested Visits Authorized [id number] Pending Review Auto-Generat ed Referral 08/08/2021 08/08/2022 1 1 [facility] for referral (narrative)* Diagnostic Procedure Only (Routine) - Closed Specialty Diagnoses / Procedures Referred By Vandana interiano Referred To Contact [facility] Diagnoses Encounter for screening mammogram for malignant neoplasm of breast Procedures JEN SCREENING W CHRISTOPHER SCREENING DIGITAL BREAST TOMOSYNTHESIS BI SCREENING MAMMOGRAPHY BI 2-VIEW BREAST INC CAD Micah Jo MD [facility] [address] [address] [facility] [address] [place] [phone] Referral ID Status Reason Start Date Expiration Date V isits Requested Visits Authorized [id number] Closed Auto-Generate d Referral 05/05/2021 06/04/2022 1 1 [facility] for referral (narrative)* Outpatient Procedure (Routine) - Pending Review Specialty Diagnoses / Procedures Referred By Vandana interiano Referred To Contact [facility] [place] Diagnoses Encounter for long-term (current) use of medications Procedures ECG COMPLETE ECG ROUTINE ECG W/LEAST 12 LDS W/I&[place] [address] [place] [address] [facility] [place] [address] [place] [address] Referral ID Status Reason Start Date Expiration Date Visits Requested Visits Authorized [id number] Pending Review Auto-Generat ed Referral 2 02/02/2023 1 1 [facility] for referral (narrative)* Diagnostic Procedure Only (Routine) - Pending Review Specialty Diagnoses / Procedures Referred By Contac t Referred To Contact [facility] Diagnoses Right knee pain, unspecified chronicity Procedures XR KNEE GENERAL 4V AP BOTH/PA BOTH/LAT/MERC RIGHT RADIOLOGIC EXAM KNEE COMPLETE 4/MORE VIEWS Arthur Krishnan MD [address] [place] [address] [facility] Referral ID Status Reason Start Date Expiration Date Visits Requested Visits Authorized [id number] Pending Review Auto-Generat ed Referral 04/15/2022 05/15/2023 1 1 [facility] for referral (narrative)* Diagnostic Procedure Only (Routine) - Pending Review Specialty Diagnoses / Procedures Referred By Contac t Referred To Contact [facility] Diagnoses Encounter for screening mammogram for malignant neoplasm of breast Procedures JEN SCREENING W CHRISTOPHER SCREENING DIGITAL BREAST TOMOSYNTHESIS BI SCREENING MAMMOGRAPHY BI 2-VIEW BREAST INC CAD Micah Jo MD [address] [address] [facility] [address] [place] [address] Referral ID Status Reason Start Date Expiration Date Visits Requested Visits Authorized [id number] Pending Review Auto-Generat ed Referral 05/06/2022 06/05/2023 1 1 [facility] for referral (narrative)* Diagnostic Procedure Only (Routine) - Closed Specialty Diagnoses / Procedures Referred By Contac t Referred To Contact XR IMAGING Diagnoses Right knee pain, unspecified chronicity Procedures XR KNEE GENERAL 4V AP BOTH/PA BOTH/LAT/MERC RIGHT RADIOLOGIC EXAM KNEE COMPLETE 4/MORE VIEWS Arthur Krishnan MD [address] [place] [address] [place] [address] Referral ID Status Reason Start Date Expiration Date V isits Requested Visits Authorized [id number] Closed Auto-Generate d Referral 04/15/2022 05/15/2023 1 1 [facility] for referral (narrative)* Diagnostic Procedure Only (Routine) - Closed Specialty Diagnoses / Procedures Referred By Contac t Referred To Contact [facility] Diagnoses Encounter for screening mammogram for malignant neoplasm of breast Procedures JEN SCREENING W CHRISOTPHER SCREENING DIGITAL BREAST TOMOSYNTHESIS BI SCREENING MAMMOGRAPHY BI 2-VIEW BREAST INC Micah Avendano MD [address] [address] [facility] [address] [place] [address] Referral ID Status Reason Start Date Expiration Date V isits Requested Visits Authorized [id number] Closed Auto-Generate d Referral 05/06/2022 06/05/2023 1 1 [facility] for referral (narrative)* Diagnostic Procedure Only (Routine) - Pending Review Specialty Diagnoses / Procedures Referred By Vandana interiano Referred To Contact [facility] Diagnoses Encounter for screening mammogram for malignant neoplasm of breast Procedures JEN SCREENING W CHRISTOPHER SCREENING DIGITAL BREAST TOMOSYNTHESIS BI SCREENING MAMMOGRAPHY BI 2-VIEW BREAST INC CAD Micah Jo MD [address] [address] [facility] [address] [place] [address] Referral ID Status Reason Start Date Expiration Date Visits Requested Visits Authorized [id number] Pending Review Auto-Generat ed Referral 07/14/2023 08/12/2024 1 1 [facility] for referral (narrative)* Diagnostic Procedure Only (Urgent) - Closed Specialty Diagnoses / Procedures Referred By Contac t Referred To Contact XR IMAGING Diagnoses Acute pain of right shoulder Procedures XR SHOULDER GENERAL 3V OR MORE AP/TRUE AP/OTHER RIGHT RADEX SHOULDER COMPLETE MINIMUM 2 VIEWS [facility] [address] [place] [address] [place] [address] Referral ID Status Reason Start Date Expiration Date V isits Requested Visits Authorized [id number] Closed Auto-Generate d Referral 08/04/2023 09/02/2024 1 1 [facility] for referral (narrative)No reason for referral information availableWTrumbull [facility] Center Work Phone: Reason for visit Narrative* Diagnostic Procedure Only (Routine) - Closed Specialty Diagnoses / Procedures Referred By Vandana t Referred To Contact [facility] Diagnoses Encounter for screening mammogram for malignant neoplasm of breast Procedures JEN SCREENING W CHRISTOPHER SCREENING DIGITAL BREAST TOMOSYNTHESIS BI SCREENING MAMMOGRAPHY BI 2-VIEW BREAST INC CAD Micah Jo MD [address] [address] [facility] [address] [place] [address] Referral ID Status Reason Start Date Expiration Date V isits Requested Visits Authorized [id number] Closed Auto-Generate d Referral 05/05/2021 06/04/2022 1 1 [facility] for visit Narrative* Diagnostic Procedure Only (Routine) - Closed Specialty Diagnoses / Procedures Referred By Contac t Referred To Contact XR IMAGING Diagnoses Right knee pain, unspecified chronicity Procedures XR KNEE GENERAL 4V AP BOTH/PA BOTH/LAT/MERC RIGHT RADIOLOGIC EXAM KNEE COMPLETE 4/MORE VIEWS Arthur Krishnan MD [address] [place] [address] [place] [address] Referral ID Status Reason Start Date Expiration Date V isits Requested Visits Authorized [id number] Closed Auto-Generate d Referral 04/15/2022 05/15/2023 1 1 [facility] for visit Narrative* Diagnostic Procedure Only (Routine) - Closed Specialty Diagnoses / Procedures Referred By Contac t Referred To Contact [facility] Diagnoses Encounter for screening mammogram for malignant neoplasm of breast Procedures JEN SCREENING W CHRISTOPHER SCREENING DIGITAL BREAST TOMOSYNTHESIS BI SCREENING MAMMOGRAPHY BI 2-VIEW BREAST INC CAD Micah Jo MD [address] [address] [facility] [address] [place] [address] Referral ID Status Reason Start Date Expiration Date V isits Requested Visits Authorized [id number] Closed Auto-Generate d Referral 05/06/2022 06/05/2023 1 1 [facility] for visit Narrative* Diagnostic Procedure Only (Routine) - Closed Specialty Diagnoses / Procedures Referred By Vandana t Referred To Contact [facility] Diagnoses Encounter for screening mammogram for malignant neoplasm of breast Procedures JEN SCREENING W CHRISTOPHER SCREENING DIGITAL BREAST TOMOSYNTHESIS BI SCREENING MAMMOGRAPHY BI 2-VIEW BREAST INC CAD Micah Jo MD [address] [address] [facility] [address] [place] [address] Referral ID Status Reason Start Date Expiration Date V isits Requested Visits Authorized [id number] Closed Auto-Generate d Referral 07/14/2023 08/12/2024 1 1 [facility] for visit Narrative* Diagnostic Procedure Only (Urgent) - Closed Specialty Diagnoses / Procedures Referred By Vandana interiano Referred To Contact X[facility] IMAGING Diagnoses Acute pain of right shoulder Procedures XR SHOULDER GENERAL 3V OR MORE AP/TRUE AP/OTHER RIGHT RADEX SHOULDER COMPLETE MINIMUM 2 VIEWS [facility] [address] [place] [address] [place] [address] Referral ID Status Reason Start Date Expiration Date V isits Requested Visits Authorized [id number] Closed Auto-Generate d Referral 08/04/2023 09/02/2024 1 1 [facility] Summary Purpose Family History No Family History Records FoundNo Family History Records Found No data available for this section No Family History Records FoundNo Family History Records Found Advance Directives No Advanced Directives Records Found Advance Directive Response Recorded Date/ Time Do you have a Healthcare Power of Director Of [employer]? No November 01, 2024 7:52pm Reason for Referral Specialty Diagnoses / Procedures Referred By Vandana t Referred To Contact Dermatology Diagnoses Blister (nonthermal) of left hand, sequela Procedures CONSULT TO DERMATOLOGY Podlogar, APRN. aJzzCOTTON INSPECTOR [address] [place] [address] Referral ID Status Reason Start Date Expiration Date Visits Requested Visits Authorized [id number] Ref Not Required PCP Requested Referral 05/24/2023 05/23/2024 1 1 Specialty Diagnoses / Procedures Referred By Contac t Referred To Contact Orthopedics Diagnoses Acute pain of right shoulder Procedures CONSULT TO ORTHOPAEDICS OFFICE/OUTPATIENT [facility] MDM 60 MINUTES [facility] [address] [place] [address] Referral ID Status Reason Start Date Expiration Date Visits Requested Visits Authorized [id number] Authorized PCP Requested Referral 08/04/2023 08/03/2024 1 1 Specialty Diagnoses / Procedures Referred By Contac t Referred To Contact X[facility] IMAGING Diagnoses Acute pain of right shoulder Procedures XR SHOULDER GENERAL 3V OR MORE AP/TRUE AP/OTHER RIGHT RADEX SHOULDER COMPLETE MINIMUM 2 VIEWS [facility] [address] [place] [address] [place] [address] Referral ID Status Reason Start Date Expiration Date V isits Requested Visits Authorized [id number] Closed Auto-Generate d Referral 08/04/2023 09/02/2024 1 1 Chief Complaint and Reason for Visit Chief Complaint Admit Date R SHOULDER/NECK PAIN June 14, 2024 11 :20am Fatigue June 27, 2024 6:11 am SCREENING October 09, 2024 12:1 4pm Reason for Visit Admit Date Cervical strain June 14, 2024 11: 20am Thoracic myofascial strain June 14, 025 11:20am Fatigue June 27, 2024 6:11 am Chief Complaint Admit Date SCREENING October 09, 2024 12:1 4pm fall November 01, 2024 7: 22pm Chief Complaint Admit Date SCREENING October 09, 2024 12:1 4pm fall November 01, 2024 7: 22pm DIZZINESS November 17, 2024 2: 39pm Additional Source Comments INFORMATION SOURCE (unrecogn ized section and content) DATE CREATED AUTHOR 09/14/2017 [facility] ([place]) DATE CREATED AUTHOR AUTHOR'S ORGANIZ ATION 03/14/2024 [facility] DATE CREATED AUTHOR AUTHOR'S ORGANIZ ATION 11/01/2024 [facility] DATE CREATED AUTHOR AUTHOR'S ORGANIZ ATION 11/25/2024 [facility] Source Comments (unrecognize d section and content) In the event this informatio n is protected by the Federal Confidentiality of Alcohol and Drug Abuse Patient Records regulations: The Federal rules restrict any use of the information to criminally investigate or prosecute any alcohol or drug abuse patient.[facility] event this information is protected by the Federal Confidentiality of Alcohol and Drug Abuse Patient Records regulations: The Federal rules restrict any use of the information to criminally investigate or prosecute any alcohol or drug abuse patient.[facility] the event this information is protected by the Federal Confidentiality of Alcohol and Drug Abuse Patient Records regulations: The Federal rules restrict any use of the information to criminally investigate or prosecute any alcohol or drug abuse patient.[facility] the event this information is protected by the Federal Confidentiality of Alcohol and Drug Abuse Patient Records regulations: The Federal rules restrict any use of the information to criminally investigate or prosecute any alcohol or drug abuse patient.[facility] the event this information is protected by the Federal Confidentiality of Alcohol and Drug Abuse Patient Records regulations: The Federal rules restrict any use of the information to criminally investigate or prosecute any alcohol or drug abuse patient.[facility] the event this information is protected by the Federal Confidentiality of Alcohol and Drug Abuse Patient Records regulations: The Federal rules restrict any use of the information to criminally investigate or prosecute any alcohol or drug abuse patient.[facility] the event this information is protected by the Federal Confidentiality of Alcohol and Drug Abuse Patient Records regulations: The Federal rules restrict any use of the information to criminally investigate or prosecute any alcohol or drug abuse patient.[facility] the event this information is protected by the Federal Confidentiality of Alcohol and Drug Abuse Patient Records regulations: The Federal rules restrict any use of the information to criminally investigate or prosecute any alcohol or drug abuse patient.[facility] the event this information is protected by the Federal Confidentiality of Alcohol and Drug Abuse Patient Records regulations: The Federal rules restrict any use of the information to criminally investigate or prosecute any alcohol or drug abuse patient.[facility] the event this information is protected by the Federal Confidentiality of Alcohol and Drug Abuse Patient Records regulations: The Federal rules restrict any use of the information to criminally investigate or prosecute any alcohol or drug abuse patient.[facility] Center[facility] the event this information is protected by the Federal Confidentiality of Alcohol and Drug Abuse Patient Records regulations: The Federal rules restrict any use of the information to criminally investigate or prosecute any alcohol or drug abuse patient.[facility] Center[facility] the event this information is protected by the Federal Confidentiality of Alcohol and Drug Abuse Patient Records regulations: The Federal rules restrict any use of the information to criminally investigate or prosecute any alcohol or drug abuse patient.[facility] the event this information is protected by the Federal Confidentiality of Alcohol and Drug Abuse Patient Records regulations: The Federal rules restrict any use of the information to criminally investigate or prosecute any alcohol or drug abuse patient.[facility] the event this information is protected by the Federal Confidentiality of Alcohol and Drug Abuse Patient Records regulations: The Federal rules restrict any use of the information to criminally investigate or prosecute any alcohol or drug abuse patient.[facility] Center[facility] the event this information is protected by the Federal Confidentiality of Alcohol and Drug Abuse Patient Records regulations: The Federal rules restrict any use of the information to criminally investigate or prosecute any alcohol or drug abuse patient.[facility] Center[facility] the event this information is protected by the Federal Confidentiality of Alcohol and Drug Abuse Patient Records regulations: The Federal rules restrict any use of the information to criminally investigate or prosecute any alcohol or drug abuse patient.[facility] Center[facility] the event this information is protected by the Federal Confidentiality of Alcohol and Drug Abuse Patient Records regulations: The Federal rules restrict any use of the information to criminally investigate or prosecute any alcohol or drug abuse patient.[facility] Center[facility] the event this information is protected by the Federal Confidentiality of Alcohol and Drug Abuse Patient Records regulations: The Federal rules restrict any use of the information to criminally investigate or prosecute any alcohol or drug abuse patient.[facility] CenterIn the event this information is protected by the Federal Confidentiality of Alcohol and Drug Abuse Patient Records regulations: The Federal rules restrict any use of the information to criminally investigate or prosecute any alcohol or drug abuse patient.[facility] CenterIn the event this information is protected by the Federal Confidentiality of Alcohol and Drug Abuse Patient Records regulations: The Federal rules restrict any use of the information to criminally investigate or prosecute any alcohol or drug abuse patient.[facility] Center[facility] the event this information is protected by the Federal Confidentiality of Alcohol and Drug Abuse Patient Records regulations: The Federal rules restrict any use of the information to criminally investigate or prosecute any alcohol or drug abuse patient.[facility] Center[facility] the event this information is protected by the Federal Confidentiality of Alcohol and Drug Abuse Patient Records regulations: The Federal rules restrict any use of the information to criminally investigate or prosecute any alcohol or drug abuse patient.[facility] CenterIn the event this information is protected by the Federal Confidentiality of Alcohol and Drug Abuse Patient Records regulations: The Federal rules restrict any use of the information to criminally investigate or prosecute any alcohol or drug abuse patient.[facility] the event this information is protected by the Federal Confidentiality of Alcohol and Drug Abuse Patient Records regulations: The Federal rules restrict any use of the information to criminally investigate or prosecute any alcohol or drug abuse patient.[facility] the event this information is protected by the Federal Confidentiality of Alcohol and Drug Abuse Patient Records regulations: The Federal rules restrict any use of the information to criminally investigate or prosecute any alcohol or drug abuse patient.[facility] CenterIn the event this information is protected by the Federal Confidentiality of Alcohol and Drug Abuse Patient Records regulations: The Federal rules restrict any use of the information to criminally investigate or prosecute any alcohol or drug abuse patient.[facility] Center[facility] the event this information is protected by the Federal Confidentiality of Alcohol and Drug Abuse Patient Records regulations: The Federal rules restrict any use of the information to criminally investigate or prosecute any alcohol or drug abuse patient.[facility] CenterIn the event this information is protected by the Federal Confidentiality of Alcohol and Drug Abuse Patient Records regulations: The Federal rules restrict any use of the information to criminally investigate or prosecute any alcohol or drug abuse patient.[facility] CenterIn the event this information is protected by the Federal Confidentiality of Alcohol and Drug Abuse Patient Records regulations: The Federal rules restrict any use of the information to criminally investigate or prosecute any alcohol or drug abuse patient.[facility] CenterIn the event this information is protected by the Federal Confidentiality of Alcohol and Drug Abuse Patient Records regulations: The Federal rules restrict any use of the information to criminally investigate or prosecute any alcohol or drug abuse patient.[facility] CenterIn the event this information is protected by the Federal Confidentiality of Alcohol and Drug Abuse Patient Records regulations: The Federal rules restrict any use of the information to criminally investigate or prosecute any alcohol or drug abuse patient.[facility] CenterIn the event this information is protected by the Federal Confidentiality of Alcohol and Drug Abuse Patient Records regulations: The Federal rules restrict any use of the information to criminally investigate or prosecute any alcohol or drug abuse patient.[facility] CenterIn the event this information is protected by the Federal Confidentiality of Alcohol and Drug Abuse Patient Records regulations: The Federal rules restrict any use of the information to criminally investigate or prosecute any alcohol or drug abuse patient.[facility] CenterIn the event this information is protected by the Federal Confidentiality of Alcohol and Drug Abuse Patient Records regulations: The Federal rules restrict any use of the information to criminally investigate or prosecute any alcohol or drug abuse patient.[facility] CenterIn the event this information is protected by the Federal Confidentiality of Alcohol and Drug Abuse Patient Records regulations: The Federal rules restrict any use of the information to criminally investigate or prosecute any alcohol or drug abuse patient.[facility] the event this information is protected by the Federal Confidentiality of Alcohol and Drug Abuse Patient Records regulations: The Federal rules restrict any use of the information to criminally investigate or prosecute any alcohol or drug abuse patient.[facility] CenterIn the event this information is protected by the Federal Confidentiality of Alcohol and Drug Abuse Patient Records regulations: The Federal rules restrict any use of the information to criminally investigate or prosecute any alcohol or drug abuse patient.[facility] CenterIn the event this information is protected by the Federal Confidentiality of Alcohol and Drug Abuse Patient Records regulations: The Federal rules restrict any use of the information to criminally investigate or prosecute any alcohol or drug abuse patient.[facility]In the event this information is protected by the Federal Confidentiality of Alcohol and Drug Abuse Patient Records regulations: The Federal rules restrict any use of the information to criminally investigate or prosecute any alcohol or drug abuse patient.[facility] CenterIn the event this information is protected by the Federal Confidentiality of Alcohol and Drug Abuse Patient Records regulations: The Federal rules restrict any use of the information to criminally investigate or prosecute any alcohol or drug abuse patient.[facility] CenterIn the event this information is protected by the Federal Confidentiality of Alcohol and Drug Abuse Patient Records regulations: The Federal rules restrict any use of the information to criminally investigate or prosecute any alcohol or drug abuse patient.[facility] CenterIn the event this information is protected by the Federal Confidentiality of Alcohol and Drug Abuse Patient Records regulations: The Federal rules restrict any use of the information to criminally investigate or prosecute any alcohol or drug abuse patient.[facility] CenterIn the event this information is protected by the Federal Confidentiality of Alcohol and Drug Abuse Patient Records regulations: The Federal rules restrict any use of the information to criminally investigate or prosecute any alcohol or drug abuse patient.[facility] CenterIn the event this information is protected by the Federal Confidentiality of Alcohol and Drug Abuse Patient Records regulations: The Federal rules restrict any use of the information to criminally investigate or prosecute any alcohol or drug abuse patient.[facility] CenterIn the event this information is protected by the Federal Confidentiality of Alcohol and Drug Abuse Patient Records regulations: The Federal rules restrict any use of the information to criminally investigate or prosecute any alcohol or drug abuse patient.[facility] CenterIn the event this information is protected by the Federal Confidentiality of Alcohol and Drug Abuse Patient Records regulations: The Federal rules restrict any use of the information to criminally investigate or prosecute any alcohol or drug abuse patient.[facility] CenterIn the event this information is protected by the Federal Confidentiality of Alcohol and Drug Abuse Patient Records regulations: The Federal rules restrict any use of the information to criminally investigate or prosecute any alcohol or drug abuse patient.[facility] CenterIn the event this information is protected by the Federal Confidentiality of Alcohol and Drug Abuse Patient Records regulations: The Federal rules restrict any use of the information to criminally investigate or prosecute any alcohol or drug abuse patient.[facility] CenterIn the event this information is protected by the Federal Confidentiality of Alcohol and Drug Abuse Patient Records regulations: The Federal rules restrict any use of the information to criminally investigate or prosecute any alcohol or drug abuse patient.[facility] CenterIn the event this information is protected by the Federal Confidentiality of Alcohol and Drug Abuse Patient Records regulations: The Federal rules restrict any use of the information to criminally investigate or prosecute any alcohol or drug abuse patient.[facility] CenterIn the event this information is protected by the Federal Confidentiality of Alcohol and Drug Abuse Patient Records regulations: The Federal rules restrict any use of the information to criminally investigate or prosecute any alcohol or drug abuse patient.[facility] CenterIn the event this information is protected by the Federal Confidentiality of Alcohol and Drug Abuse Patient Records regulations: The Federal rules restrict any use of the information to criminally investigate or prosecute any alcohol or drug abuse patient.[facility] CenterIn the event this information is protected by the Federal Confidentiality of Alcohol and Drug Abuse Patient Records regulations: The Federal rules restrict any use of the information to criminally investigate or prosecute any alcohol or drug abuse patient.[facility] CenterIn the event this information is protected by the Federal Confidentiality of Alcohol and Drug Abuse Patient Records regulations: The Federal rules restrict any use of the information to criminally investigate or prosecute any alcohol or drug abuse patient.[facility] CenterIn the event this information is protected by the Federal Confidentiality of Alcohol and Drug Abuse Patient Records regulations: The Federal rules restrict any use of the information to criminally investigate or prosecute any alcohol or drug abuse patient.[facility] CenterIn the event this information is protected by the Federal Confidentiality of Alcohol and Drug Abuse Patient Records regulations: The Federal rules restrict any use of the information to criminally investigate or prosecute any alcohol or drug abuse patient.[facility] CenterIn the event this information is protected by the Federal Confidentiality of Alcohol and Drug Abuse Patient Records regulations: The Federal rules restrict any use of the information to criminally investigate or prosecute any alcohol or drug abuse patient.[facility] CenterIn the event this information is protected by the Federal Confidentiality of Alcohol and Drug Abuse Patient Records regulations: The Federal rules restrict any use of the information to criminally investigate or prosecute any alcohol or drug abuse patient.[facility] CenterIn the event this information is protected by the Federal Confidentiality of Alcohol and Drug Abuse Patient Records regulations: The Federal rules restrict any use of the information to criminally investigate or prosecute any alcohol or drug abuse patient.[facility] CenterIn the event this information is protected by the Federal Confidentiality of Alcohol and Drug Abuse Patient Records regulations: The Federal rules restrict any use of the information to criminally investigate or prosecute any alcohol or drug abuse patient.[facility] CenterIn the event this information is protected by the Federal Confidentiality of Alcohol and Drug Abuse Patient Records regulations: The Federal rules restrict any use of the information to criminally investigate or prosecute any alcohol or drug abuse patient.[facility] CenterIn the event this information is protected by the Federal Confidentiality of Alcohol and Drug Abuse Patient Records regulations: The Federal rules restrict any use of the information to criminally investigate or prosecute any alcohol or drug abuse patient.[facility] CenterIn the event this information is protected by the Federal Confidentiality of Alcohol and Drug Abuse Patient Records regulations: The Federal rules restrict any use of the information to criminally investigate or prosecute any alcohol or drug abuse patient.[facility] CenterIn the event this information is protected by the Federal Confidentiality of Alcohol and Drug Abuse Patient Records regulations: The Federal rules restrict any use of the information to criminally investigate or prosecute any alcohol or drug abuse patient.[facility] Reason for Visit (unrecogniz ed section and [...] W/LEAST 12 LDS W/I&[place] [address] [place] [address] [facility] [address] [facility] [place] [address] Referral ID Status Reason Start Date Expiration Date V isits Requested Visits Authorized [id number] Closed Auto-Generate d Referral 02/02/2022 02/02/2023 1 [...] SPECIALIST OFFICE VISIT Self Treva Reynolds MD [address] [place] [address] Referral ID Status Reason Start Date Expiration Date V isits Requested Visits Authorized [id number] Authorized 03/22/2022 03/21/2023 99 99 Reason Comments [...] Care Teams (unrecognized sec tion and content) Dcs Engineer Relationship Specialty Start Date End Date Cheng Mcdaniel MD [address] [place] [address] PCP - General Family Practice 05/06/18 Dcs Engineer Relationship Specialty Start Date End Date Cheng Mcdaniel MD [address] [place] [address] PCP - General Family Practice 05/06/18 Dcs Engineer Relationship Specialty Start Date End Date Cheng Mcdaniel MD [address] [place] [address] PCP - General Family Practice 05/06/18 Dcs Engineer Relationship Specialty Start Date End Date Cheng Mcdaniel MD [address] [facility] [place] [address] PCP - General Family Practice 05/06/18 Dcs Engineer Relationship Specialty Start Date End Date Cheng Mcdaniel MD [address] [place] [address] PCP - General Family Practice 05/06/18 Dcs Engineer Relationship Specialty Start Date End Date Cheng Mcdaniel MD [address] [place] [address] PCP - General Family Practice 05/06/18 Dcs Engineer Relationship Specialty Start Date End Date Cheng Mcdaniel MD [address] [place] [address] PCP - General Family Practice 05/06/18 Dcs Engineer Relationship Specialty Start Date End Date Cheng Mcdaniel MD [address] [facility] [place] [address] PCP - General Family Medicine 05/06/18 Dcs Engineer Relationship Specialty Start Date End Date Cheng Mcdaniel MD [address] [facility] [place] [address] PCP - General Family Medicine 05/06/18 Dcs Engineer Relationship Specialty Start Date End Date Cheng Mcdaniel MD [address] [facility] [place] [address] PCP - General Family Medicine 05/06/18 Dcs Engineer Relationship Specialty Start Date End Date Cheng Mcdaniel MD [address] [facility] [place] [address] PCP - General Family Medicine 05/06/18 Dcs Engineer Relationship Specialty Start Date End Date Cheng Mcdaniel MD [address] [facility] [place] [address] PCP - General Family Medicine 05/06/18 Dcs Engineer Relationship Specialty Start Date End Date Cheng Mcdaniel MD [address] [facility] [place] [address] PCP - General Family Medicine 05/06/18 Dcs Engineer Relationship Specialty Start Date End Date Cheng Mcdaniel MD [address] [facility] [place] [address] PCP - General Family Medicine 05/06/18 Dcs Engineer Relationship Specialty Start Date End Date Cheng Mcdaniel MD [address] [facility] [place] [address] PCP - General Family Medicine 05/06/18 Dcs Engineer Relationship Specialty Start Date End Date Cheng Mcdaniel MD [address] [facility] [place] [address] PCP - General Family Medicine 05/06/18 Dcs Engineer Relationship Specialty Start Date End Date Cheng Mcdaniel MD [address] [place] [address] PCP - General Family Medicine 05/06/18 Dcs Engineer Relationship Specialty Start Date End Date Cheng Mcdaniel MD [address] [place] [address] PCP - General Family Medicine 05/06/18 Dcs Engineer Relationship Specialty Start Date End Date Cheng Mcdaniel MD [address] [place] [address] PCP - General Family Medicine 05/06/18 Dcs Engineer Relationship Specialty Start Date End Date Cheng Mcdaniel MD [address] [place] [address] PCP - General Family Medicine 05/06/18 Dcs Engineer Relationship Specialty Start Date End Date Cheng Mcdaniel MD [address] [place] [address] PCP - General Family Medicine 05/06/18 Dcs Engineer Relationship Specialty Start Date End Date Cheng Mcdaniel MD [address] [place] [address] PCP - General Family Medicine 05/06/18 Dcs Engineer Relationship Specialty Start Date End Date Cheng Mcdaniel MD [address] [place] [address] PCP - General Family Medicine 05/06/18 Dcs Engineer Relationship Specialty Start Date End Date Cheng Mcdaniel MD [address] [facility] [place] [address] PCP - General Family Medicine 05/06/18 Dcs Engineer Relationship Specialty Start Date End Date Cheng Mcdaniel MD [address] [facility] [place] [address] PCP - General Family Medicine 05/06/18 Dcs Engineer Relationship Specialty Start Date End Date Cheng Mcdaniel MD [address] [facility] [place] [address] PCP - General Family Medicine 05/06/18 Dcs Engineer Relationship Specialty Start Date End Date Cheng Mcdaniel MD [address] [facility] [place] [address] PCP - General Family Medicine 05/06/18 Dcs Engineer Relationship Specialty Start Date End Date Cheng Mcdaniel MD [address] [facility] [place] [address] PCP - General Family Medicine 05/06/18 Dcs Engineer Relationship Specialty Start Date End Date Cheng Mcdaneil MD [address] [facility] [place] [address] PCP - General Family Medicine 05/06/18 Dcs Engineer Relationship Specialty Start Date End Date Cheng Mcdaniel MD [address] [facility] [place] [address] PCP - General Family Medicine 05/06/18 Dcs Engineer Relationship Specialty Start Date End Date Cheng Mcdaniel MD [address] [facility] [place] [address] PCP - General Family Medicine 05/06/18 Dcs Engineer Relationship Specialty Start Date End Date Cheng Mcdaniel MD [address] [facility] [place] [address] PCP - General Family Medicine 05/06/18 Dcs Engineer Relationship Specialty Start Date End Date Cheng Mcdaniel MD [address] [place] [address] PCP - General Family Medicine 05/06/18 Dcs Engineer Relationship Specialty Start Date End Date Cheng Mcdaniel MD [address] [place] [address] PCP - General Family Medicine 05/06/18 Dcs Engineer Relationship Specialty Start Date End Date Cheng Mcdaniel MD [address] [place] [address] PCP - General Family Medicine 05/06/18 Dcs Engineer Relationship Specialty Start Date End Date Cheng Mcdaniel MD [address] [facility] [place] [address] PCP - General Family Medicine 05/06/18 Dcs Engineer Relationship Specialty Start Date End Date Cheng Mcdaniel MD [address] [facility] [place] [address] PCP - General Family Medicine 05/06/18 Dcs Engineer Relationship Specialty Start Date End Date Cheng Mcdaniel MD [address] [facility] [place] [address] PCP - General Family Medicine 05/06/18 Dcs Engineer Relationship Specialty Start Date End Date Cheng Mcdaniel MD [address] [place], [place] [address] PCP - General Family Medicine 05/06/18 Dcs Engineer Relationship Specialty Start Date End Date Cheng Mcdaniel MD [address] [place], [place] [address] PCP - General Family Medicine 05/06/18 PodlogarJazz APRN.COTTON INSPECTOR [address] [place], [place] [address] [facility] Lead Family Medicine 02/26/24 Dcs Engineer Relationship Specialty Start Date End Date Cheng Mcdaniel MD [address] [place], [place] [address] PCP - General Family Medicine 05/06/18 PodlogarJazz APRN.COTTON INSPECTOR [address] [place], [place] [address] [facility] Lead Family Medicine 02/26/24 Team Status: Active Member Role/Relationship Status Yoav Riggins MD Primary Care Provider Active Team Status: Inactive Member Role/Relationship Status Yoav Riggins MD Primary Care Provider Active St art: June 14, 2024 End: June 14, 2024 Wild Riggins MD Referring Provider Active Start : June 14, 2024 End: June 14, 2024 Kunal MELISSA PA Attending Provider Active Start: June 14, 2024 [...] 2024 End: October 09, 2024 Nico Osuna HEALTH SAFETY INSTRUCTOR, HEALTH SAFETY INSTRUCTOR-C Attending Provider Active Start: October 09, 2024 End: October 09, 2024 Nico Osuna HEALTH SAFETY INSTRUCTOR, HEALTH SAFETY INSTRUCTOR-C Referring Provider Active Start: October 09, 2024 End: October 09, 2024 Team Status: Inactive Member Role/Relationship Status Yoav Riggins MD Primary Care Provider Active St art: October 09, 2024 End: October 09, 2024 Nico Osuna HEALTH SAFETY INSTRUCTOR, HEALTH SAFETY INSTRUCTOR-C Attending Provider Active Start: October 09, 2024 End: October 09, 2024 Nico Osuna HEALTH SAFETY INSTRUCTOR, HEALTH SAFETY INSTRUCTOR-C Referring Provider Active Start: October 09, 2024 End: October 09, 2024 Team Status: Inactive Member Role/Relationship Status Yoav Riggins MD Primary Care Provider Active St art: November 01, 2024 End: November 01, 2024 Dr. Giulia Moore MD Referring Provider Active S tart: November 01, 2024 End: November 01, 2024 Dr. Giulia Moore MD Emergency Provider Active S tart: November 01, 2024 End: November 01, 2024 Team Status: Inactive Member Role/Relationship Status Yoav Riggins MD Primary Care Provider Active St art: November 01, 2024 End: November 01, 2024 Dr. Giulia Moore MD Attending Provider Active S tart: November 01, 2024 End: November 01, 2024 Dr. Giulia Moore MD Referring Provider Active S tart: November 01, 2024 End: November 01, 2024 Dr. Giulia Moore MD Emergency Provider Active S tart: November 01, 2024 End: November 01, 2024 Team Status: Inactive Member Role/Relationship Status Yoav Riggins MD Primary Care Provider Active St art: November 17, 2024 End: November 17, 2024 Wild Riggins MD Attending Provider Active Start : November 17, 2024 End: November 17, 2024 Wild Riggins MD Referring Provider Active Start : November 17, 2024 End: November 17, 2024 Goals (unrecognized section and content) Goals [...] BE BASED ON THE PRIMARY CLINICAL RECORDS. [facility]. provides no warranty or guarantee of the accuracy or completeness of information in this document.
== END | disposition home or self-care (01) ==
LOC: LABSPEC 16:46
PROVIDERS: PCP Family Medicine; Visit Provider Family Medicine
DX: Z12.4 Encounter for screening for malignant neoplasm of cervix (principal)

== ENCOUNTER → 2024-12-09 | Outpatient (CLI) | payer OTHER, SELFPAY ==
--- OUTSIDE RECORDS SUMMARY | 2024-12-09 07:00 | XMS RPT_ITS | CCD ---
Author Organization [facility] Care Team Providers Care Echo Technician Name Role Phone NEGINPEYTON Unavailable Unavailable DUANE STAUFFER Unavailable Unavailable Cheng Mcdaniel MD Primary Care Provider Cheng Mcdaniel MD Primary Care Provider Cheng Mcdaniel MD Primary Care Provider Cheng Mcdaniel MD Primary Care Provider Cheng Mcdaniel MD Primary Care Provider Podlogar RESPIRATORY EQUIPMENT ASSISTANT.Jazz COBURN Unavailable JACINTA GREEN Attending Unavailable CHENG [...] Provider [phone] Kunal Chicas Attending Provider [phone] GROCERY CHECKER-C, Nico Attending Provider [phone] [facility] GROCERY CHECKER-C, Nico Referring Provider [phone] DEMARCUS LARSEN [...] Penicillins (antibiotic) (1 source) Penicillins Drug Allergy [address] [place] [address] (7 sources) Angiotensin-con verting enzyme inhibitor agent; Translations: [HAROLDO INHIBITORS] Propensity to adverse reactions to drug 4 [facility] Work Phone: Comment on above: ANGIOEDEMA (6 sources) Penicillins; Translations: [PENICILLINS] Propensity to adverse reactions 2 [facility] (20 sources) Bupropion/Dieth ylpropion; Translations: [BUPROPION/DIET HYLPROPION] Propensity to adverse reactions [address] [facility] (20 sources) Angiotensin-con verting enzyme inhibitor agent Propensity to adverse reactions to drug [address] [facility] Work Phone: (20 sources) Penicillins Propensity to adverse reactions [address] [facility] (1 source) buPROPion; Translations: [bupropion] Drug Allergy [facility] (3 sources) Amoxicillin Drug Allergy 5 Upset Stomach [facility] (3 sources) Angiotensin Converting Enzyme (Haroldo) Inhibitors Allergy to substance 5 PT UNSURE OF REACTION [facility] (3 sources) Clavulanate Drug Allergy 5 Upset Stomach [facility] (3 sources) Penicillins Allergy to substance 5 Hives [facility] (1 source) Amoxicillin Drug Allergy 5 [facility] Repository (1 source) Angiotensin Converting Enzyme (Haroldo) Inhibitors Drug allergy (disorder) 5 [facility] Repository (1 source) Clavulanate Drug Allergy 5 [facility] Repository (1 source) Penicillins Drug allergy (disorder) 5 [facility] Repository Medications Current Medications Medication Drug Class(es) [...] on above: Take 1 capsule by mo [facility] four times daily for 5 days. cetirizine [...] Comment on above: Take 1 tablet by [facility] three times daily as needed for muscle [...] food. 21 tablet 0 08/04/2023 08/10/2023 Active [facility] Medication (1 source) Start: 02-23-2017 [facility] Medicatio n 0 Refill(s) Start [...] oral solution (2 sources) alpha-Adrenergic Agonist, Uncompetitive S-gseemg-M-aspartate Receptor Antagonist, Sigma-1 Agonist Start: 04-25-2021 End: 08-08-2021 take 5-10 mL by mouth every six hours as needed Mnugcrgxwenchae-Mradifjsa-EN (BROMFED DM) 2-30-10 mg/5 mL syrup Take [...] 1 TABLET BY RICARDO TH EVERY DAY [id number] 0.3 ml EPINEPHrine 1 mg/ml auto-injector (1 [...] (8 sources) Patient encounter status; Translations: [Other custodial (current) drug therapy] Episodic Other ear and [...] By: Krish Durbin on 11-19-2024 Study report [facility] [address] [place] [address] Carotid Duplex Ultrasound 11/17/24 1458 MR#: [id number] Acct: [id number] Name: MICHAELLE MAYS Rep #:[id number] : 1980 44 From: Krish Durbin MD [...] the left vertebral artery. Procedure Carotid Duplex 56936. This is a Carotid Duplex examination using [...] Date _ Krish Durbin MD CC: Dr. Wlid Riggins MD ~ Date Dictated: 11/17/241457 Date Transcribed: 11/19/242302 Meat Specialist: Signed [facility] Other Carotid Duplex Ultrasoundon 11-17-2024 Carotid Duplex Ultrasound [facility] [address] [place] [address] Carotid Duplex Ultrasound 11/17/241457 MR#: [id number] Acct: [id number] Name: MICHAELLE MAYS Rep #: [id number] : 1980 44 From: Krish Durbin MD [...] the left vertebral artery. Procedure Carotid Duplex 93158. This is a Carotid Duplex examination using [...] Dictated: 11/17/24 1458 Date Transcribed: 11/19/24 2303 Meat Specialist: Signed Normal [facility] Brain/Head without Contrasto n 11-01-2024 Brain/Head without Contrast [facility] Imaging Services [address] [place], [place] [address] Brain/Head without Contrast MR#: [id number] Acct: [id number] Name: MICHAELLE MAYS Rep #: [id number] : 1980 F 44 From: Leo Mcgovern MD PCP: Dr. Wild Riggins MD Status: REG ER Study: Brain/Head without Contrast Date of Exam: 10/20 06/13 Exam# [id number] Ordering Dr: Giulia Moore MD EXAM: CT [...] Wild Riggins MD; Dr. Giulia Moore MD Meat Specialist: Signed Normal [facility] Emergency Department Summary on 11-01-2024 Emergency Department Summary [facility] Medical Records Department [address] [place] [address] Emergency Department Summary 11/01/24 MR#: [id number] Acct: [id number] Name: MICHAELLE MAYS Rep #: [id number] : 1980 44 From: Giulia Moore MD [...] reports she is having neck pain now. [facility] Medical History Thoracic myofascial strain Cervical [...] given Tylenol (more content not included)... Normal [facility] Spine Cervical without Contr ason 11-01-2024 Spine Cervical without Contras [facility] Imaging Services [address] [place] [address] Spine Cervical without Contras MR#: [id number] Acct: [id number] Name: MICHAELLE MAYS Rep #: [id number] : 1980 F 44 From: Leo Mcogvern MD PCP: Dr. Wild Riggins MD Status: REG ER Study: Spine Cervical without Contras Date of Exam: 0 11/01/24 Exam# [id number] Ordering Dr: Giulia Moore MD EXAM: CT [...] Wild Riggins MD; Dr. Giulia Moore MD Meat Specialist: Signed Normal [facility] Breast imaging reportOrdered By: Brittani Short on 10-10-2024 Study report [facility] Imaging Services [address] [place], [place] [address] SCRN MAMM (CAD)W/CHRISTOPHER BILAT MR#: [id number] Acct: [id number] Name: MICHAELLE MAYS Rep #: [id number] : 1980 F 44 From: Mati Ann MD PCP: Dr. Wild Riggins MD Status: REG CL I Study:SCRN MAMM (CAD)W/CHRISTOPHER BILAT Date of Exa m: 10/09/24 Exam# [id number] Ordering Dr: Nico Osuna NP GROCERY CHECKER-C EXAM: SCRN MAMM (CAD)W/CHRISTOPHER BILAT DATE: 10/09/2024 [...] be mailed to the patient. Reading Location: [id number] CC: Nico Osuna; Dr. Wild Riggins MD ~ Meat Specialist: Signed [facility] SCRN MAMM (CAD)W/CHRISTOPHER BILATo n 10-09-2024 SCRN MAMM (CAD)W/CHRISTOPHER BILAT [facility] Imaging Services [address] [place] [address] SCRN MAMM (CAD)W/CHRISTOPHER BILAT MR#: [id number] Acct: [id number] Name: MICHAELLE MAYS Rep #: [id number] : 1980 F 44 From: Brittani Ugalde i, MD PCP: Dr. Wild Riggins MD Status: REG CLI Study: SCRN MAMM (CAD)W/CHRISTOPHER BILAT Date of Exam: 09/20 04/15 Exam# [id number] Ordering Dr: Nico Osuna NP GROCERY CHECKER -C EXAM: SCRN MAMM (CAD)W/CHRISTOPHER BILAT DATE: [...] be mailed to the patient. Reading Location: [id number] CC: Nico BROOKS NP-Annia Osuna; Dr. Wild Riggins MD Meat Specialist: Signed Normal [facility] Laboratory - Microbiology an d Antimicrobial susceptibilityOrdered By: Kunal Adams on 06-27-2024 SARS-CoV-2 (COVID-19) RNA VIVIAN+probe Ql (Unsp spec) Not detected [facility] No Panel InformationOrdered By: Kunal Adams on 06-27-2024 Influenza Types A,B Rapid (Clinic) Not detected [facility] Urgent Care Visit Reporton 0 06-27-2024 Urgent Care Visit Report [facility] [address], [address] [place] [address] OFFICE VISIT Date of Service: 06/27/24 MR#: [id number] Acct: [id number] Name: MICHAELLE MAYS Rep #: [id number] : 1980 Provider: [employer] Age/Sex: 44/F Location: [facility] Status: Signed Intake Vital Signs 02/15/24 11:17 [...] in a while her stomach is upset. [facility] Medical History (Updated 06/14/24 @ 11:39 [...] contacts recently dx???d w/ similar complaints. No jgnv-iyb-joyhmcm taken to assist. No other associated symptoms [...] normal Psych (more content not included)... 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 denies fall, trauma, new injury [facility] Medical History (Updated 06/14/24 @ 11:39 [...] or mid low back pain upon questioning. Fiec-uvn-aivjlbx Tylenol with minimal benefit, and states she is unable to take NSAIDs due to topical Voltaren use for her knees. No other associated symptoms and no other alleviating/aggravati ng factors. ROS Const Constitutional: No other (As above) Exam Const General: cooperative, healthy appearing and no acute distress Orientation: alert and awake [facility] Head: normal to inspection Ears: hearing [...] the above. This note was generated with [employer] dictation software. It may contain incorrect words, spelling, and punc (more content not included)... Normal [facility] PAP IG HPV HR APTIMAon 05-18 ADEQ Comment Normal . [facility] Comment on above: Order Comment: Octavio boateng Comment: [id number] Comment: Source.............Cervix;EndocervixSpecimen Comment: No. of containers..01 ThinPrep Vial Result Comment: Sati sfactory for evaluation. Endocervical and/or squamous metaplastic cells (endocervical component) are present. Performed By: #### L 7400.0377 ####[facility] [address] [place], [address] COMM . Normal . [facility] Comment on above: Order Comment: Octavio boateng Comment: [id number] Comment: Source.............Cervix;EndocervixSpecimen Comment: No. of containers..01 ThinPrep Vial Performed By: #### L 7400.0377 ####[facility] [address] [place], [place], [address] COMMENT Comment Normal . [facility] Comment on above: Order Comment: Speci men Comment: [id number] Comment: Source.............Cervix;EndocervixSpecimen Comment: No. of containers..01 ThinPrep Vial Result Comment: This liquid based ThinPrep(R) pap test was screened with the use of an image guided system. Performed By: #### L 7400.0377 ####[facility] [address] [place], [place], [phone] DIAG Comment Normal . [facility] Comment on above: Order Comment: Speci men Comment: [id number] Comment: Source.............Cervix;EndocervixSpecimen Comment: No. of containers..01 ThinPrep Vial Result Comment: NEGA TIVE FOR INTRAEPITHELIAL LESION OR MALIGNANCY. Performed By: #### L 7400.0377 ####[facility] [address] [place], [place], [phone] HPV APTIMA, HR Negative Normal Negative [facility] Comment on above: Order Comment: Speci men Comment: [id number] Comment: Source.............Cervix;EndocervixSpecimen Comment: No. of containers..01 ThinPrep Vial Result Comment: This nucleic acid amplification test detects fourteen high- risk HPV types (16,18,31,33,35,39,45,51,52,56,58,59,66,68) without differentiation. Performed at: [address] [id number] Extension Service Advisor: Jackie Finn MD, Phone: [phone] Performed at: [address] [id number] Extension Service Advisor: Jackie Finn MD, Phone: [phone] Performed By: #### L 7400.0377 ####[facility] [address] [place], [place], [phone] PAPSMR Comment Normal . [facility] Comment on above: Order Comment: Speci men Comment: [id number] Comment: Source.............Cervix;EndocervixSpecimen Comment: No. of containers..01 ThinPrep Vial Result Comment: The Pap smear is a screening test designed to aid in the detection of premalignant and malignant conditions of the uterine cervix. It is not a diagnostic procedure and should not be used as the sole means of detecting cervical cancer. Both false-positive and false-negative reports do occur. Performed By: #### L 7400.0377 ####[facility] [address] [place], [place], [phone] PERFORM Comment Normal . [facility] Comment on above: Order Comment: Speci men Comment: [id number] Comment: Source.............Cervix;EndocervixSpecimen Comment: No. of containers..01 ThinPrep Vial Result Comment: Reyna Zuniga, Clinical Services Assistant (ASCP) Performed By: #### L 7400.0377 ####[facility] [address] [place], [place], [phone] ALLERGEN SKIN TEST-PENICILLI Non 03-02-2024 ANTIBIOTIC PERCUTANEOUS [...] = 0 mm F = 0 mm [facility] 1251-2726-16 Lot [id number] Exp 06/19/2025 PREPEN -(benzylpenicilloyl polylysine) full strength P: W = 0 mm F = 0mm ID: W = 0 mm F = 0 mm [facility] 51105-779-31 Lot [id number] Exp 06/19/25 HISTAMINE- positive control (Histamine base 6mg/ml)for Prick and 0.1 mg/ml for intradermal P: W = 9 mm F = 45+ mm [facility] C1 ESTERASE INHIB FUon 03-02 C1 ESTERASE INHIBITOR FUNCTION 106 % Normal >=41 [facility] Comment on above: Order Comment: Speci men Type: BLOOD SPECIMENOrdering Facility: [facility] Address: [address] [place] [address] Result Comment: The concentration of functional C1 esterase inhibitor (C1-INH) is reported as the percentage of the mean level in normal specimens. Concentrations greater than or equal to 68 percent mean normal are considered normal. INTERPRETIVE INFORMATION: G-8-Gptglues Inhib. Functional 68% or greater ........ Normal 41% - 67% ............. Indeterminate 40% or less ........... Abnormal Performed By: [employer] [address] [place] [address] Latex Spooler: Kota Piper MD, PhD CLIA Number: [id number] Performed By: #### C 1EFUN ####[facility] LABORATORIESCLIA [id number] [place] [id number] C1 ESTERASE INHIBITon 2023 C1 ESTERASE INHIBIT 35 mg/dL Normal 21-38 [facility] Comment on above: Order Comment: Speci men Type: BLOOD SPECIMENOrdering Facility: [facility] Address: [address] [place] [address] Result Comment: Perf ormed By: [employer] [address] [place] [id number] Latex Spooler: Kota Piper MD, PhD CLIA Number: [id number] Performed By: #### C 1EST ####[facility] LABORATORIESCLIA [id number] [place] [id number] C1Q COMPLEMENT PROTon 2023 C1Q COMPLEMENT PROTEIN 153 ug/mL Normal 109-242 Cl [facility] Comment on above: Order Comment: Speci men Type: BLOOD SPECIMENOrdering Facility: [facility] Address: [address] [place] [address] Result Comment: Perf ormed By: [facility] [employer] [address] [place] [address] Latex Spooler: Kota Piper MD, PhD CLIA Number: [id number] Performed By: #### C OMC1Q ####[facility] LABORATORIESCLIA [id number] [place] [address] C4 SerPl-mCncon 03-02-2024 Complement C4 [Mass/Vol] 29 mg/dL Normal 13-46 [facility] Comment on above: Order Comment: Speci men Type: BLOOD SPECIMENOrdering Facility: [facility] Address: [address] [place] [address] Performed By: #### 2 4323-8, 4498-2 ####[facility] LABCLIA [id number] [place] [address] [place] CBC W Auto Differential pane l (Bld)on 03-02-2024 Basophils (Bld) [#/Vol] 0.05 10*3/uL [facility] Basophils/100 WBC (Bld) 0.6 % [facility] Differential cell count method Nom (Bld) Auto [facility] Eosinophils (Bld) [#/Vol] 0.06 10*3/uL [facility] Eosinophils/100 WBC (Bld) 0.7 % [facility] Erythrocyte distribution width (RBC) [Ratio] 13.2 % 11.5 - 15.0 % [facility] Hematocrit (Bld) [Volume fraction] 45.2 % 36.0 - 46.0 % [facility] Hemoglobin (Bld) [Mass/Vol] 14.8 g/dL 11.5 - 15.5 g/dL [facility] Immature granulocytes (Bld) [#/Vol] [facility] Immature granulocytes/100 WBC (Bld) 0.2 % [facility] Lymphocytes (Bld) [#/Vol] 2.70 10*3/uL [facility] Lymphocytes/100 WBC (Bld) 31.8 % [facility] MCH (RBC) [Entitic mass] 32.2 pg 26. 0 - 34.[address] [facility] MCHC (RBC) [Mass/Vol] 32.7 g/dL 30.5 - 36.0 g/dL [facility] MCV (RBC) [Entitic vol] 98.5 fL 80.0 - 100.[address] [facility] Monocytes (Bld) [#/Vol] 0.62 10*3/uL [facility] Monocytes/100 WBC (Bld) 7.3 % C [facility] Neutrophils (Bld) [#/Vol] 5.03 10*3/uL [facility] Neutrophils/100 WBC (Bld) 59.4 % [facility] Nucleated RBC (Bld) [#/Vol] [facility] Nucleated RBC/100 WBC (Bld) [Ratio] 0.0 % /[address] [facility] Platelet mean volume (Bld) [Entitic vol] 10.6 fL 9.0 - 12.[address] [facility] Platelets (Bld) [#/Vol] 370 10*3/uL [facility] RBC (Bld) [#/Vol] 4.59 10*6/uL 3.90 - 5.2 0 m/uL [facility] WBC (Bld) [#/Vol] 8.48 10*3/uL [facility] Basophils (Bld) [#/Vol] 0.05 10*3/uL Normal <0.11 [facility] Comment on above: Order Comment: Speci men Type: BLOOD SPECIMENOrdering Facility: [facility] Address: [address] [place] [address] Performed By: #### 5 7021-8 ####[facility] LABCLIA [id number] [address] STATES OF [facility] Basophils/100 WBC (Bld) 0.6 % Normal [facility] Comment on above: Order Comment: Speci men Type: BLOOD SPECIMENOrdering Facility: [facility] Address: [address] [place] [address] Performed By: #### 5 7021-8 ####[facility] LABCLIA [id number] [place] [address] [place] Differential cell count method Nom (Bld) Auto Normal [facility] Comment on above: Order Comment: Speci men Type: BLOOD SPECIMENOrdering Facility: [facility] Address: [address] [place] [address] Performed By: #### 5 7021-8 ####[facility] LABCLIA [id number] [place] [address] [place] Eosinophils (Bld) [#/Vol] 0.06 10*3/uL Normal <0.46 [facility] Comment on above: Order Comment: Speci men Type: BLOOD SPECIMENOrdering Facility: [facility] Address: [address] [place] [address] Performed By: #### 5 7021-8 ####[facility] LABCLIA [id number] [place] [address] [place] Eosinophils/100 WBC (Bld) 0.7 % Normal [facility] Comment on above: Order Comment: Speci men Type: BLOOD SPECIMENOrdering Facility: [facility] Address: [address] [place] [address] Performed By: #### 5 7021-8 ####[facility] LABCLIA [id number] [place] [address] [place] Erythrocyte distribution width (RBC) [Ratio] 13.2 % Normal 11.5-15.0 [facility] Comment on above: Order Comment: Speci men Type: BLOOD SPECIMENOrdering Facility: [facility] Address: [address] [place] [address] Performed By: #### 5 7021-8 ####[facility] LABCLIA [id number] [place] [address] [place] Hematocrit (Bld) [Volume fraction] 45.2 % Normal 36.0-46.0 [facility] Comment on above: Order Comment: Speci men Type: BLOOD SPECIMENOrdering Facility: [facility] Address: [address] [place] [address] Performed By: #### 5 7021-8 ####[facility] LABCLIA [id number] [place] [address] [place] Hemoglobin (Bld) [Mass/Vol] 14.8 g/dL Normal 11.5-15.5 [facility] Comment on above: Order Comment: Speci men Type: BLOOD SPECIMENOrdering Facility: [facility] Address: [address] [place] [address] Performed By: #### 5 7021-8 ####[facility] LABCLIA [id number] [place] [address] [place] Immature granulocytes (Bld) [#/Vol] 10*3/uL Normal <0.10 [facility] Comment on above: Order Comment: Speci men Type: BLOOD SPECIMENOrdering Facility: [facility] Address: [address] [place] [address] Performed By: #### 5 7021-8 ####[facility] LABCLIA [id number] [place] [address] [place] Immature granulocytes/100 WBC (Bld) 0.2 % Normal [facility] Comment on above: Order Comment: Speci men Type: BLOOD SPECIMENOrdering Facility: [facility] Address: [address] [place] [address] Performed By: #### 5 7021-8 ####[facility] LABCLIA [id number] [place] [address] [place] Lymphocytes (Bld) [#/Vol] 2.70 10*3/uL Normal 1.00-4.00 [facility] Comment on above: Order Comment: Speci men Type: BLOOD SPECIMENOrdering Facility: [facility] Address: [address] [place] [address] Performed By: #### 5 7021-8 ####[facility] LABCLIA [id number] [place] [address] [place] Lymphocytes/100 WBC (Bld) 31.8 % Normal [facility] Comment on above: Order Comment: Speci men Type: BLOOD SPECIMENOrdering Facility: [facility] Address: [address] [place] [address] Performed By: #### 5 7021-8 ####[facility] LABCLIA [id number] [place] [address] [place] MCH (RBC) [Entitic mass] 32.2 pg Normal 26.0-34.0 [facility] Comment on above: Order Comment: Speci men Type: BLOOD SPECIMENOrdering Facility: [facility] Address: [address] [place] [address] Performed By: #### 5 7021-8 ####[facility] LABIA [id number] [place] [address] [place] MCHC (RBC) [Mass/Vol] 32.7 g/dL Normal 30.5-36.0 [facility] Comment on above: Order Comment: Speci men Type: BLOOD SPECIMENOrdering Facility: [facility] Address: [address] [place] [address] Performed By: #### 5 7021-8 ####[facility] LABIA [id number] [place] [address] [place] MCV (RBC) [Entitic vol] 98.5 fL Normal 80.0-100.0 [facility] Comment on above: Order Comment: Speci men Type: BLOOD SPECIMENOrdering Facility: [facility] Address: [address] [place] [address] Performed By: #### 5 7021-8 ####[facility] LABCLIA [id number] [place] [address] [place] Monocytes (Bld) [#/Vol] 0.62 10*3/uL Normal <0.87 [facility] Comment on above: Order Comment: Speci men Type: BLOOD SPECIMENOrdering Facility: [facility] Address: [facility] [place] [address] Performed By: #### 5 7021-8 ####[facility] LABCLIA [id number] [place] [id number] [place] Monocytes/100 WBC (Bld) 7.3 % Normal [facility] Comment on above: Order Comment: Speci men Type: BLOOD SPECIMENOrdering Facility: [facility] Address: [address] [place] [address] Performed By: #### 5 7021-8 ####[facility] LABCLIA [id number] [place] [address] [place] Neutrophils (Bld) [#/Vol] 5.03 10*3/uL Normal 1.45-7.50 [facility] Comment on above: Order Comment: Speci men Type: BLOOD SPECIMENOrdering Facility: [facility] Address: [address] [place] [address] Performed By: #### 5 7021-8 ####[facility] LABCLIA [id number] [place] [address] [place] Neutrophils/100 WBC (Bld) 59.4 % Normal [facility] Comment on above: Order Comment: Speci men Type: BLOOD SPECIMENOrdering Facility: [facility] Address: [address] [place] [address] Performed By: #### 5 7021-8 ####[facility] LABCLIA [id number] [place] [address] [place] Nucleated RBC (Bld) [#/Vol] 10*3/uL Normal <0.01 [facility] Comment on above: Order Comment: Speci men Type: BLOOD SPECIMENOrdering Facility: [facility] Address: [address] [place] [address] Performed By: #### 5 7021-8 ####[facility] LABCLIA [id number] [place] [address] [place] Nucleated RBC/100 WBC (Bld) [Ratio] 0.0 /100 WBC Normal [facility] Comment on above: Order Comment: Speci men Type: BLOOD SPECIMENOrdering Facility: [facility] Address: [address] [place] [address] Performed By: #### 5 7021-8 ####[facility] [id number] [place] [address] [place] Platelet mean volume (Bld) [Entitic vol] 10.6 fL Normal 9.0-12.7 [facility] Comment on above: Order Comment: Speci men Type: BLOOD SPECIMENOrdering Facility: [facility] Address: [address] [place] [address] Performed By: #### 5 7021-8 ####[facility] [id number] [place] [address] [place] Platelets (Bld) [#/Vol] 370 10*3/uL Normal 150-400 [facility] Comment on above: Order Comment: Speci men Type: BLOOD SPECIMENOrdering Facility: [facility] Address: [address] [place] [address] Performed By: #### 5 7021-8 ####[facility] [id number] [place] [address] [place] RBC (Bld) [#/Vol] 4.59 10*6/uL Normal 3.90-5.20 [facility] Comment on above: Order Comment: Speci men Type: BLOOD SPECIMENOrdering Facility: [facility] Address: [address] [place] [address] Performed By: #### 5 7021-8 ####[facility] [id number] [place] [address] [place] WBC (Bld) [#/Vol] 8.48 10*3/uL Normal 3.70-11.00 [facility] Comment on above: Order Comment: Speci men Type: BLOOD SPECIMENOrdering Facility: [facility] Address: [address] [place] [id number] Performed By: #### 5 7021-8 ####[facility] LABCLIA [id number] [address] [place] [id number] [place] CNOVon 03-02-2024 CNOV Office Visit (ALLEST ) MICHAELLE MAYS ([id number]) 1980 F Date Time Provider Department 03/02/24 [...] in November and went to ED in [place]. Decreased dose of doxepin to 25 mg [...] told she had to get it at [place] and was not able to do it. [...] from dox (more content not included)... Normal [facility] Comprehensive metabolic 2000 panelon 03-02-2024 Albumin [Mass/Vol] 4.1 g/dL Normal 3.9-4.9 [facility] Comment on above: Order Comment: Speci men Type: BLOOD SPECIMENOrdering Facility: [facility] Address: [address] [place] [address] Performed By: #### 2 4323-8, 4498-2 ####[facility] LABCLIA [id number] [place] [address] [place] ALP [Catalytic activity/Vol] 87 U/L Normal 34-123 [facility] Comment on above: Order Comment: Speci men Type: BLOOD SPECIMENOrdering Facility: [facility] Address: [address] [place] [id number] Performed By: #### 2 4323-8, 4498-2 ####[facility] LABCLIA [id number] [place] [id number] [place] ALT [Catalytic activity/Vol] 25 U/L Normal 7-38 [facility] Comment on above: Order Comment: Speci men Type: BLOOD SPECIMENOrdering Facility: [facility] Address: [address] [place] [address] Performed By: #### 2 4323-8, 4498-2 ####[facility] LABCLIA [id number] [place] [address] [place] Anion gap [Moles/Vol] 11 mmol/L Normal 8-15 [facility] Comment on above: Order Comment: Speci men Type: BLOOD SPECIMENOrdering Facility: [facility] Address: [address] [place] [address] Performed By: #### 2 4323-8, 4498-2 ####[facility] LABCLIA [id number] [place] [address] [place] AST [Catalytic activity/Vol] 23 U/L Normal 13-35 [facility] Comment on above: Order Comment: Speci men Type: BLOOD SPECIMENOrdering Facility: [facility] Address: [address] [place], [place] [address] Performed By: #### 2 4323-8, 4498-2 ####[facility] LABCLIA [id number] [place] [id number] [place] Bilirubin [Mass/Vol] 0.3 mg/dL Normal 0.2-1.3 [facility] Comment on above: Order Comment: Speci men Type: BLOOD SPECIMENOrdering Facility: [facility] Address: [address] [place], [place] [address] Performed By: #### 2 4323-8, 4498-2 ####[facility] LABCLIA [id number] [address] [address] [place] Calcium [Mass/Vol] 9.1 mg/dL Normal 8.5-10.2 [facility] Comment on above: Order Comment: Speci men Type: BLOOD SPECIMENOrdering Facility: [facility] Address: [address] [place] [address] Performed By: #### 2 4323-8, 4498-2 ####[facility] LABCLIA [id number] [place] [address] [place] Chloride [Moles/Vol] 103 mmol/L Normal 98-107 [facility] Comment on above: Order Comment: Speci men Type: BLOOD SPECIMENOrdering Facility: [facility] Address: [address] [place] [address] Performed By: #### 2 4323-8, 4498-2 ####[facility] LABCLIA [id number] [place] [address] [place] CO2 [Moles/Vol] 28 mmol/L Normal 22-30 [facility] Comment on above: Order Comment: Speci men Type: BLOOD SPECIMENOrdering Facility: [facility] Address: [address] [place] [address] Performed By: #### 2 4323-8, 4498-2 ####[facility] LABCLIA [id number] [place] [address] [place] Creatinine [Mass/Vol] 0.89 mg/dL Normal 0.58-0.96 [facility] Comment on above: Order Comment: Speci men Type: BLOOD SPECIMENOrdering Facility: [facility] Address: [address] [place], [place] [address] Performed By: #### 2 4323-8, 4498-2 ####[facility] LABCLIA [id number] [place] [address] [place] Creatinine and Glomerular filtration rate.predicted panel (S/P/Bld) 82 mL/min/1.73m??? Normal >=60 [facility] Comment on above: Order Comment: Octavio boateng Type: BLOOD SPECIMENOrdering Facility: [facility] Address: [address] [place] [address] Result Comment: Dinora mated Glomerular Filtration Rate [...] GFR. Performed By: #### 2 4323-8, 4498-2 ####[facility] LABCLIA [id number] [place] [address] [place] Glucose [Mass/Vol] 72 mg/dL Low 74-99 [facility] Comment on above: Order Comment: Octavio boateng Type: BLOOD SPECIMENOrdering Facility: [facility] Address: [address] [place] [address] Result Comment: The [place] [employer] (ADA) provides guidance for cutoff [...] Standards of Medical Care in Diabetes 2016, [place] [employer]. Diabetes Care. 2016.39(Suppl 1). Performed By: #### 2 4323-8, 4498-2 ####[facility] LABCLIA [id number] [place] [address] [place] Potassium [Moles/Vol] 4.0 mmol/L Normal 3.7-5.1 [facility] Comment on above: Order Comment: Speci men Type: BLOOD SPECIMENOrdering Facility: [facility] Address: [address] [place] [address] Performed By: #### 2 4323-8, 4498-2 ####[facility] LABCLIA [id number] [place] [address] [place] Protein [Mass/Vol] 7.0 g/dL Normal 6.3-8.0 [facility] Comment on above: Order Comment: Speci men Type: BLOOD SPECIMENOrdering Facility: [facility] Address: [address] [place] [address] Performed By: #### 2 4323-8, 4498-2 ####[facility] LABCLIA [id number] [place] [address] [place] Sodium [Moles/Vol] 142 mmol/L Normal 136-144 [facility] Comment on above: Order Comment: Speci men Type: BLOOD SPECIMENOrdering Facility: [facility] Address: [address] [place] [address] Performed By: #### 2 4323-8, 4498-2 ####[facility] LABCLIA [id number] [place] [address] [place] Urea nitrogen [Mass/Vol] 10 mg/dL Normal 7-21 [facility] Comment on above: Order Comment: Speci men Type: BLOOD SPECIMENOrdering Facility: [facility] Address: [address] [place] [address] Performed By: #### 2 4323-8, 4498-2 ####[facility] LABCLIA [id number] [place] [id number] [place] INGESTION CHALLENGE TESTon [...] 1635 in stable condition with no concerns. [facility] No Panel InformationOrdered By: Nidia Hurst on 03-02-2024 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 previous xrays completed at [facility] confirmed bone on bone. Has recently restablished with Dr. Riggins and placed on medication for weight loss to help alleviate right hip and knee pain and to avoid surgery. Here today requiring work note. [facility] Medical History (Updated 02/15/24 @ 11:32 [...] told by her orthopod that she has, pkve-mn-nnrt joints to both knees. No bilateral ankle [...] radiographs upon offering. Continue Voltaren topical, acetaminophen kpld-slz-tzgrics as needed. Cyclobenzaprine as prescribed today. Work excuse offered at patient request. Follow-up with PCP or orthopedics as previously arranged, ED sooner should symptoms worsen or any other concerns develop. Patient states acknowledging understanding of the above. This note was generated with [employer] software. It ma (more content not included)... Normal [facility] HIP, UNI W/ Pelvis 2-3 Views on 02-10-2024 HIP, UNI W/ Pelvis 2-3 Views [facility] [address] [place], [place] [id number] HIP, UNI W/ Pelvis 2-3 Views MR#: [id number] Acct: [id number] Name: MICHAELLE MAYS Rep #: [id number] : 1980 F 43 From: John Murphy MD PCP: Dr. Wild Riggins MD Status: REG CLI Study: HIP, UNI W/ Pelvis 2-3 Views Date of Exam: Exam# [id number] Ordering Dr: Wild Riggins MD [id number] STUDY: X-RAY - PELVIS AND RIGHT HIP [...] 22:58 EST Reading Location ID and State: [address] [place] [address] Tel , Service support , CC: Dr. 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 [facility] Comment on above: Order Comment: Order Date: 01/25/24Order Info: [id number] - ESTN Result Comment: Prep ubertal < 40 Female Cycle: 1-10 Days 16 - 328 11-20 Days 34 - 501 21-30 Days 48 - 350 Post-Menopausal 40 - 244 Performed at: [address] [id number] Extension Service Advisor: Cara Lopez MD, Phone: [phone] Performed By: #### L 501.2208, L100.0100, L500.4100, L500.4050, L3100.5055, L3400.0200, L506.1000 ####[facility] [id number] [place], [address] Hemoglobin A1con 02-01-2024 HbA1c (Bld) [Mass fraction] 5.7 % High 3.8-5.6 [facility] Comment on above: Order Comment: FLORA Olivera ADD A1C TO BLOOD DRAWN 01/31/24 PER Result Comment: Norm al < 5.7 % Prediabetic 5.7 - 6.4 % Diabetic >or= 6.5 % Please note range changes. Performed By: #### L 501.9985, L801.2600 ####[facility] [address] [place], [place], [id number] PROGESTERONE 4317on 02-01-20 24 PROGESTERONE 0.3 ng/mL Normal . [facility] Comment on above: Order Comment: N Result Comment: Foll icular phase 0.1 - 0.9 Luteal phase 1.8 - 23.9 Ovulation phase 0.1 - 12.0 First trimester 11.0 - 44.3 Second trimester 25.4 - 83.3 Third trimester 58.7 - 214.0 Postmenopausal 0.0 - 0.1 Performed at: [facility] [address] [id number] Extension Service Advisor: Demarcus Zamora PhD, Phone: [phone] Performed By: #### L 5019985, L803.2604 ####[facility] [address] [place], [place], [id number] CBC W/Diff, Automatedon 01-20 Absolute Lymph 2.64 X10 3/uL Normal 0.83-4.51 [facility] Comment on above: Order Comment: Order Date: 01/25/24 Order Info: 0184-1 - CBCD Performed By: #### L 501.9520, L100.0100, L500.4100, L500.4050, L3100.5055, L3400.0200, L506.1000 #### [facility] Laboratory [address] [place], [place], [address] Absolute Neut 6.8 X10 3/uL Normal 2.0-7.7 [facility] Comment on above: Order Comment: Order Date: 01/25/24 Order Info: 0184-1 - CBCD Performed By: #### L 501.9520, L100.0100, L500.4100, L500.4050, L3100.5055, L3400.0200, L506.1000 #### [facility] Laboratory [address] [place], [address] Basophils/100 WBC (Bld) 0.7 % Normal 0-1 [facility] Comment on above: Order Comment: Order Date: 01/25/24 Order Info: 0184-1 - CBCD Performed By: #### L 501.9520, L100.0100, L500.4100, L500.4050, L3100.5055, L3400.0200, L506.1000 #### [facility] Laboratory [address] [place], [address] Eosinophils/100 WBC (Bld) 2.1 % Normal 0-5 [facility] Comment on above: Order Comment: Order Date: 01/25/24 Order Info: 0184- - CBCD Performed By: #### L 501.9520, L100.0100, L500.4100, L500.4050, L3100.5055, L3400.0200, L506.1000 #### [facility] Laboratory [address] [place], [address] Erythrocyte distribution width (RBC) [Ratio] 13.0 % Normal 11.6-14.6 [facility] Comment on above: Order Comment: Order Date: 01/25/24 Order Info: 0184-1 - CBCD Performed By: #### L 501.9520, L100.0100, L500.4100, L500.4050, L3100.5055, L3400.0200, L506.1000 #### [facility] Laboratory [address] [facility] [place], [address] Hematocrit (Bld) [Volume fraction] 45.3 % Normal 37-47 [facility] Comment on above: Order Comment: Order Date: 01/25/24 Order Info: 0184-1 - CBCD Performed By: #### L 501.9520, L100.0100, L500.4100, L500.4050, L3100.5055, L3400.0200, L506.1000 #### [facility] Laboratory [address] [place], [address] Hemoglobin (Bld) [Mass/Vol] 14.8 g/dL Normal 12.0-15.0 [facility] Comment on above: Order Comment: Order Date: 01/25/24 Order Info: 0184-1 - CBCD Performed By: #### L 501.9520, L100.0100, L500.4100, L500.4050, L3100.5055, L3400.0200, L506.1000 #### [facility] Laboratory [address] [place], [address] IG% 0.400 Normal 0.0-0.9 [facility] Comment on above: Order Comment: Order Date: 01/25/24 Order Info: 0184- - CBCD Result Comment: IG% - Immature Granulocytes (promyelocytes, myelocytes and metamyelocytes) > 1% indicates that a LEFT SHIFT is Present. Performed By: #### L 501.9520, L100.0100, L500.4100, L500.4050, L3100.5055, L3400.0200, L506.1000 #### [facility] Laboratory [address] [place], [address] Lymphocytes/100 WBC (Bld) 25.2 % Normal 19-41 [facility] Comment on above: Order Comment: Order Date: 01/25/24 Order Info: 0184-1 - CBCD Performed By: #### L 501.9520, L100.0100, L500.4100, L500.4050, L3100.5055, L3400.0200, L506.1000 #### [facility] Laboratory [address] [place], [address] MCH (RBC) [Entitic mass] 31.4 pg Normal 27.0-32.0 [facility] Comment on above: Order Comment: Order Date: 01/25/24 Order Info: 0184-1 - CBCD Performed By: #### L 501.9520, L100.0100, L500.4100, L500.4050, L3100.5055, L3400.0200, L506.1000 #### [facility] Laboratory [address] [place], [address] MCHC (RBC) [Mass/Vol] 32.7 g/dL Normal 32-36 [facility] Comment on above: Order Comment: Order Date: 01/25/24 Order Info: 0184-1 - CBCD Performed By: #### L 501.9520, L100.0100, L500.4100, L500.4050, L3100.5055, L3400.0200, L506.1000 #### [facility] Laboratory [address] [place], [address] MCV (RBC) [Entitic vol] 96.0 fL Normal 81-99 [facility] Comment on above: Order Comment: Order Date: 01/25/24 Order Info: 0184-1 - CBCD Performed By: #### L 501.9520, L100.0100, L500.4100, L500.4050, L3100.5055, L3400.0200, L506.1000 #### [facility] Laboratory [address] [place], [address] Monocytes/100 WBC (Bld) 6.7 % Normal 0-10 [facility] Comment on above: Order Comment: Order Date: 01/25/24 Order Info: 0184-1 - CBCD Performed By: #### L 501.9520, L100.0100, L500.4100, L500.4050, L3100.5055, L3400.0200, L506.1000 #### [facility] Laboratory [address] [place], [address] Neutrophils/100 WBC (Bld) 64.9 % Normal 47-70 [facility] Comment on above: Order Comment: Order Date: 01/25/24 Order Info: 0184-1 - CBCD Performed By: #### L 501.9520, L100.0100, L500.4100, L500.4050, L3100.5055, L3400.0200, L506.1000 #### [facility] Laboratory [address] [place], [address] Nucleated RBC (Bld) [#/Vol] 0 10*3/uL Normal 0-5 [facility] Comment on above: Order Comment: Order Date: 01/25/24 Order Info: 0184- - CBCD Performed By: #### L 501.9520, L100.0100, L500.4100, L500.4050, L3100.5055, L3400.0200, L506.1000 #### [facility] Laboratory [address] [place], [address] Platelet mean volume (Bld) [Entitic vol] 10.0 fL Normal 6.2-12.0 [facility] Comment on above: Order Comment: Order Date: 01/25/24 Order Info: 0184- - CBCD Performed By: #### L 501.9520, L100.0100, L500.4100, L500.4050, L3100.5055, L3400.0200, L506.1000 #### [facility] Laboratory [address] [place], [address] Platelets (Bld) [#/Vol] 376 10*3/uL Normal 150-450 [facility] Comment on above: Order Comment: Order Date: 01/25/24 Order Info: 0184-1 - CBCD Performed By: #### L 501.9520, L100.0100, L500.4100, L500.4050, L3100.5055, L3400.0200, L506.1000 #### [facility] Laboratory [address] [place], [address] RBC (Bld) [#/Vol] 4.72 10*6/uL Normal 4.2-5.4 [facility] Comment on above: Order Comment: Order Date: 01/25/24 Order Info: 0184-1 - CBCD Performed By: #### L 501.9520, L100.0100, L500.4100, L500.4050, L3100.5055, L3400.0200, L506.1000 #### [facility] Laboratory [address] [place], [place], [id number] RDW SD 46.2 fl High 35.1-43.9 [facility] Comment on above: Order Comment: Order Date: 01/25/24 Order Info: 0184- - CBCD Performed By: #### L 501.9520, L100.0100, L500.4100, L500.4050, L3100.5055, L3400.0200, L506.1000 #### [facility] Laboratory [address] [place], [place], [address] WBC (Bld) [#/Vol] 10.5 10*3/uL Normal 4.4-11.0 [facility] Comment on above: Order Comment: Order Date: 01/25/24 Order Info: 0184- - CBCD Performed By: #### L 501.9520, L100.0100, L500.4100, L500.4050, L3100.5055, L3400.0200, L506.1000 #### [facility] Laboratory [address] [place], [place], [id number] Comprehensive Metabolic Prof [facility] 01-31-2024 Albumin [Mass/Vol] 3.2 g/dL Normal 3.2-5.0 [facility] Comment on above: Order Comment: Order Date: 01/25/24Order Info: [id number] - CMPOrder Info: [id number] - LIPIDOrder Info: [id number] - TSHOrder Info: 0553-1 - FSHLH Performed By: #### L 501.9520, L100.0100, L500.4100, L500.4050, L3100.5055, L3400.0200, L506.1000 ####[facility] [address] [place], [address] Albumin/Globulin [Mass ratio] 0.8 {ratio} Low 0.9-2.4 [facility] Comment on above: Order Comment: Order Date: 01/25/24Order Info: 86-1 - CMPOrder Info: [id number] - LIPIDOrder Info: 3 - TSHOrder Info: [id number] - FSHLH Performed By: #### L 501.9520, L100.0100, L500.4100, L500.4050, L3100.5055, L3400.0200, L506.1000 ####[facility] [address] [place], [address] ALK P 80 U/L Normal 45-117 [facility] Comment on above: Order Comment: Order Date: 01/25/24Order Info: 785- - CMPOrder Info: - LIPIDOrder Info: 3 - TSHOrder Info: 53-1 - FSHLH Performed By: #### L 501.9520, L100.0100, L500.4100, L500.4050, L3100.5055, L3400.0200, L506.1000 ####[facility] [address] [place], [address] ALT [Catalytic activity/Vol] 19 U/L Normal 13-56 [facility] Comment on above: Order Comment: Order Date: 01/25/24Order Info: 785-1 - CMPOrder Info: [id number] - LIPIDOrder Info: 6-3 - TSHOrder Info: [id number] - FSHLH Performed By: #### L 501.9520, L100.0100, L500.4100, L500.4050, L3100.5055, L3400.0200, L506.1000 ####[facility] [address] [place], [address] AST [Catalytic activity/Vol] 13 U/L Low 15-37 [facility] Comment on above: Order Comment: Order Date: 01/25/24Order Info: [id number] - CMPOrder Info: [id number] - LIPIDOrder Info: 6-3 - TSHOrder Info: 53-1 - FSHLH Performed By: #### L 501.9520, L100.0100, L500.4100, L500.4050, L3100.5055, L3400.0200, L506.1000 ####[facility] [address] [place], [address] Bilirubin [Mass/Vol] 0.30 mg/dL Normal 0.20-1.00 [facility] Comment on above: Order Comment: Order Date: 01/25/24Order Info: 785- - CMPOrder Info: [id number] - LIPIDOrder Info: 3 - TSHOrder Info: 53- - FSHLH Result Comment: For patients on eltrombopag therapy, use of Dimension Oxford TBIL is not recommended. Performed By: #### L 501.9520, L100.0100, L500.4100, L500.4050, L3100.5055, L3400.0200, L506.1000 ####[facility] [address] [place], [address] BUN/CRE 14.3 RATIO Normal 10-20 [facility] Comment on above: Order Comment: Order Date: 01/25/24Order Info: 07-1 - CMPOrder Info: [id number] - LIPIDOrder Info: 6-3 - TSHOrder Info: 53-1 - FSHLH Performed By: #### L 501.9520, L100.0100, L500.4100, L500.4050, L3100.5055, L3400.0200, L506.1000 ####[facility] [address] [place], [address] CA,Total 8.6 mg/dL Normal 8.5-10.1 [facility] Comment on above: Order Comment: Order Date: 01/25/24Order Info: 86-1 - CMPOrder Info: [id number] - LIPIDOrder Info: [id number] - TSHOrder Info: 552-1 - FSHLH Performed By: #### L 501.9520, L100.0100, L500.4100, L500.4050, L3100.5055, L3400.0200, L506.1000 ####[facility] [address] [place], [address] Chloride [Moles/Vol] 109 mmol/L High 98-107 [facility] Comment on above: Order Comment: Order Date: 01/25/24Order Info: 785-1 - CMPOrder Info: [id number] - LIPIDOrder Info: [id number] - TSHOrder Info: 552- - FSHLH Performed By: #### L 501.9520, L100.0100, L500.4100, L500.4050, L3100.5055, L3400.0200, L506.1000 ####[facility] [address] [place], [address] CO2 [Moles/Vol] 24.0 mmol/L Normal 21.0-32.0 [facility] Comment on above: Order Comment: Order Date: 01/25/24Order Info: 785-1 - CMPOrder Info: - LIPIDOrder Info: [id number] - TSHOrder Info: 552-03 - FSHLH Performed By: #### L 501.9520, L100.0100, L500.4100, L500.4050, L3100.5055, L3400.0200, L506.1000 ####[facility] [address] [place], [address] Creatinine [Mass/Vol] 1.05 mg/dL High 0.55-1.02 [facility] Comment on above: Order Comment: Order Date: 01/25/24Order Info: 86-1 - CMPOrder Info: [id number] - LIPIDOrder Info: [id number] - TSHOrder Info: 552-03 - FSHLH Result Comment: The validity of the calculated GFR GFRAA in patients over 70 years has not been determined. Clinical correlation is essential. Performed By: #### L 501.9520, L100.0100, L500.4100, L500.4050, L3100.5055, L3400.0200, L506.1000 ####[facility] [address] [place], [address] EST GFR - AA 73 mL/min Normal >60 [facility] Comment on above: Order Comment: Order Date: 01/25/24Order Info: 785- - CMPOrder Info: [id number] - LIPIDOrder Info: 3 - TSHOrder Info: 552-03 - FSHLH Result Comment: Afri can Eritrean GFR Calc Performed By: #### L 501.9520, L100.0100, L500.4100, L500.4050, L3100.5055, L3400.0200, L506.1000 ####[facility] [address] [place], [address] GAP 7 Normal 5-15 [facility] Comment on above: Order Comment: Order Date: 01/25/24Order Info: 785- - CMPOrder Info: [id number] - LIPIDOrder Info: 3 - TSHOrder Info: 552-03 - FSHLH Performed By: #### L 501.9520, L100.0100, L500.4100, L500.4050, L3100.5055, L3400.0200, L506.1000 ####[facility] [address] [place], [place], [address] GFR/1.73 sq M.predicted among non-blacks MDRD (S/P/Bld) [Vol rate/Area] 60 mL/min/{1.73_m2} Normal >60 [facility] Comment on above: Order Comment: Order Date: 01/25/24Order Info: 785-1 - CMPOrder Info: [id number] - LIPIDOrder Info: [id number] - TSHOrder Info: 0553-1 - FSHLH Result Comment: Non- GFR Calc Performed By: #### L 501.9520, L100.0100, L500.4100, L500.4050, L3100.5055, L3400.0200, L506.1000 ####[facility] [address] [place], [address] Globulin (S) [Mass/Vol] 4.2 g/dL Normal 2.2-4.2 [facility] Comment on above: Order Comment: Order Date: 01/25/24Order Info: 86-1 - CMPOrder Info: [id number] - LIPIDOrder Info: 3 - TSHOrder Info: 53-1 - FSHLH Performed By: #### L 501.9520, L100.0100, L500.4100, L500.4050, L3100.5055, L3400.0200, L506.1000 ####[facility] [address] [place], [address] Glucose [Mass/Vol] 121 mg/dL High 74-106 [facility] Comment on above: Order Comment: Order Date: 01/25/24Order Info: 785- - CMPOrder Info: [id number] - LIPIDOrder Info: 3 - TSHOrder Info: 53-1 - FSHLH Result Comment: Fast ing Glucose result from 100 to 125 mg/dL suggests IMPAIRED HOMEOSTASIS per A.D.A. criteria. Performed By: #### L 501.9520, L100.0100, L500.4100, L500.4050, L3100.5055, L3400.0200, L506.1000 ####[facility] [address] [place], [address] Potassium [Moles/Vol] 3.7 mmol/L Normal 3.5-5.1 [facility] Comment on above: Order Comment: Order Date: 01/25/24Order Info: 785-1 - CMPOrder Info: [id number] - LIPIDOrder Info: [id number] - TSHOrder Info: 0553-1 - FSHLH Performed By: #### L 501.9520, L100.0100, L500.4100, L500.4050, L3100.5055, L3400.0200, L506.1000 ####[facility] [address] [place], [address] Sodium [Moles/Vol] 139 mmol/L Normal 136-145 [facility] Comment on above: Order Comment: Order Date: 01/25/24Order Info: 86-1 - CMPOrder Info: [id number] - LIPIDOrder Info: 3 - TSHOrder Info: 53-1 - FSHLH Performed By: #### L 501.9520, L100.0100, L500.4100, L500.4050, L3100.5055, L3400.0200, L506.1000 ####[facility] [address] [place], [address] T PROT 7.4 g/dL Normal 6.4-8.2 [facility] Comment on above: Order Comment: Order Date: 01/25/24Order Info: 785-1 - CMPOrder Info: [id number] - LIPIDOrder Info: [id number] - TSHOrder Info: 53-1 - FSHLH Performed By: #### L 501.9520, L100.0100, L500.4100, L500.4050, L3100.5055, L3400.0200, L506.1000 ####[facility] [address] [place], [address] Urea nitrogen [Mass/Vol] 15 mg/dL Normal 7-18 [facility] Comment on above: Order Comment: Order Date: 01/25/24Order Info: 86-1 - CMPOrder Info: [id number] - LIPIDOrder Info: 3 - TSHOrder Info: 0553-1 - FSHLH Performed By: #### L 501.9520, L100.0100, L500.4100, L500.4050, L3100.5055, L3400.0200, L506.1000 ####[facility] [address] [place], [place], [id number] FSH and LHon 01-31-2024 FSH 22.7 mIU/mL Normal [facility] Comment on above: Order Comment: Order Date: 01/25/24Order Info: [id number] - CMPOrder Info: [id number] - LIPIDOrder Info: [id number] - TSHOrder Info: 53-1 - FSHLH Result Comment: NORMAL REFERENCE RANGES FEMALE FOLLICULAR 2.3 - 12.6 mIU/mL MID-CYCLE PEAK 5.2 - 17.5 mIU/mL LUTEAL 1.7 - 12.9 mIU/mL POST-MENOPAUSAL ON MHT 5.9 - 72.8 mIU/mL NOT ON MHT 12.7 - 132.2 mlU/mL MALE 0.7 - 10.8 mIU/mL Performed By: #### L 501.9520, L100.0100, L500.4100, L500.4050, L3100.5055, L3400.0200, L506.1000 ####[facility] [address] [place], [place], [id number] LH 15.6 mIU/mL Normal [facility] Comment on above: Order Comment: Order Date: 01/25/24Order Info: 0786-1 - CMPOrder Info: [id number] - LIPIDOrder Info: 3 - TSHOrder Info: 552-1 - FSHLH Result Comment: NORMAL REFERENCE RANGES FEMALE FOLLICULAR 1.9 - 26.2 mIU/mL MID-CYCLE PEAK 22.8 - 76.1 mIU/mL LUTEAL 0.6 - 16.6 mIU/mL POST-MENOPAUSAL ON MHT 1.1 - 52.4 mIU/mL NOT ON MHT 8.6 - 61.8 mIU/mL MALE 1.2 - 10.6 mIU/mL Performed By: #### L 501.9520, L100.0100, L500.4100, L500.4050, L3100.5055, L3400.0200, L506.1000 ####[facility] [address] [place], [place], [id number] Lipid Profileon 01-31-2024 Cholesterol [Mass/Vol] 207 mg/dL High [address] [facility] Comment on above: Order Comment: Order Date: 01/25/24Order Info: 0786-1 - CMPOrder Info: [id number] - LIPIDOrder Info: [id number] - TSHOrder Info: 0553-1 - FSHLH Result Comment: <200 mg/dL Desirable 200-240 mg/dL Borderline >240 mg/dL High Risk Performed By: #### L 501.9520, L100.0100, L500.4100, L500.4050, L3100.5055, L3400.0200, L506.1000 ####[facility] [address] [facility] [place], [place], [phone] Cholesterol in HDL [Mass/Vol] 54 mg/dL Normal [facility] Comment on above: Order Comment: Order Date: 01/25/24Order Info: 785- - CMPOrder Info: [id number] - LIPIDOrder Info: 63 - TSHOrder Info: 0553-1 - FSHLH Result Comment: The drugs N-Acetylcysteine and Metamizole may falsely depress this assay. Reference Range HDL <40 mg/dL Low HDL Cholesterol HDL >or= 60 mg/dL High HDL Cholesterol Performed By: #### L 501.9520, L100.0100, L500.4100, L500.4050, L3100.5055, L3400.0200, L506.1000 ####[facility] [address] [facility] [place], [place], [id number] Cholesterol in LDL [Mass/Vol] 133 mg/dL High 0-130 [facility] Comment on above: Order Comment: Order Date: 01/25/24Order Info: 07-1 - CMPOrder Info: [id number] - LIPIDOrder Info: 6-3 - TSHOrder Info: 0553-1 - FSHLH Performed By: #### L 501.9520, L100.0100, L500.4100, L500.4050, L3100.5055, L3400.0200, L506.1000 ####[facility] [address] [place], [place], [phone]) Cholesterol in VLDL [Mass/Vol] 20 mg/dL Normal 5-40 [facility] Comment on above: Order Comment: Order Date: 01/25/24Order Info: 0786-1 - CMPOrder Info: [id number] - LIPIDOrder Info: 3 - TSHOrder Info: 0553-1 - FSHLH Performed By: #### L 501.9520, L100.0100, L500.4100, L500.4050, L3100.5055, L3400.0200, L506.1000 ####[facility] [address] [place], [place], [phone]) Triglyceride [Mass/Vol] 102 mg/dL Normal [facility] Comment on above: Order Comment: Order [...] 501.9520, L100.0100, L500.4100, L500.4050, L3100.5055, L3400.0200, L506.1000 ####[facility] [address] [place], [place], [phone]) Thyroid Stim Hormone (TSH)on 01-31-2024 TSH 2.690 uIU/mL Normal 0.358-3.740 [facility] Comment on above: Order Comment: Order Date: 01/25/24Order Info: 07- - CMPOrder Info: [id number] - LIPIDOrder Info: 3 - TSHOrder Info: 0553-1 - FSHLH Performed By: #### L 501.9520, L100.0100, L500.4100, L500.4050, L3100.5055, L3400.0200, L506.1000 ####[facility] [address] [place], [place], [address] Vitamin D,25 Hydroxyon 01-30 Vitamin D 25-OH 44.4 ng/mL Normal [facility] Comment on above: Order Comment: Order Date: 01/25/24 Order Info: [id number] - VITD25 Result Comment: Anastasia min D 25(OH) Status Range Deficiency <20 ng/mL (50nmol/L) Insufficiency 20 - 30 ng/mL (50 - 75 nmol/L) Sufficiency 30 - 100 ng/mL (75 - 250 nmol/L) Toxicity >100 ng/mL (>250 nmol/L) Performed By: #### L 501.9520, L100.0100, L500.4100, L500.4050, L3100.5055, L3400.0200, L506.1000 #### [facility] [address] 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 Johns Morbid obesity (HCC) Plantar fasciitis [...] Visit Dilcia (more content not included)... Normal [facility] CNOVon 12-30-2023 CNOV Office Visit ([facility] ) MICHAELLE MAYS ([id number]) 1980 F Date Time Provider Department 12/30/23 11:15 AM ESTELITA RIVERA [facility] During your visit today, we recorded the following information about you: Temperature Pulse Respiration Blood pressure 97.8 degrees 79/minute 18/minute 147/85 Weight 123.1 kg Estelita Rivera PA 12/30/2023 11:29 AM Signed This note was created using EngagementHealthriter. 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 [facility] MICHAELLE MAYS ([id number]) 1980 F Date Time Provider Department 12/06/23 [facility]CDANIEL [facility] During your visit today, we recorded [...] Date 12/06/2023 Noted Resolved Adult BMI 30+ [NLN1552] 02/14/2013 07/02/2017 Angio-edema [T78.3XXA] 01/02/2014 Obesity, Class III, BMI >= 40 E66.01 [E66.01] 07/02/2017 Osteoarthritis [M19.90] 07/02/2017 Urticaria [L50.9] 04/26/2019 ASCUS of cervix with negative high risk HPV [R8*04/2019 Right knee pain [M25.561] 11/13/2019 Effusion of right knee [M25.461] 11/13/2019 Encounter Status:Closed by SELAM ORDONEZ on 12/14/23 Normal [facility] Emergency Department Summary on 12-03-2023 Emergency Department Summary [facility] Medical Records Department [address] [place] [address] Emergency Department Summary 12/03/23 MR#: [id number] Acct: [id number] Name: MICHAELLE MAYS Sincere Rep #: [id number] : 1980 43 From: Tonie Peters DO [...] foods, medications or exposures to trigger it. [facility] Medical History Angio-edema Home Medications ???Medication [...] Angioedema P (more content not included)... Normal [facility] 10-05-2023 [facility] HNO ID: [id number] Author: COORDINATOR, MAMMOGRAPHY, ? Service: ? Author Type: Physician Type: Letter Filed: 10/05/2023 08:56 Note Text: October 05, 2023 PID: [id number] Michaelle Mays [address] [place] [address] Dear Ms. Mays, We are pleased to [...] report will be kept on file at [facility] as part of your permanent medical record and are available for your continuing care. Thank you for allowing us to help in meeting your health care needs. Sincerely, Dr. Zaragoza Interpreting Radiologist [facility] (Normal over 40) Normal [facility] SCREENING W TOMOon 10-03 JEN SCREENING W CHRISTOPHER * * *Final Report* * * DATE OF EXAM: Oct 04 2023 2:56PM WRW 0582 - JEN SCREENING W CHRISTOPHER / PROCEDURE REASON: Encounter for screening mammogram for malignant neoplasm of breast * * * * Physician Interpretation * * * * RESULT: #[id number] - [facility] SCREENING W CHRISTOPHER BILATERAL DIGITAL SCREENING [...] mammogram, 09/29/2021 mammogram, and 09/26/2020 mammogram - [facility]. The breasts are almost entirely fatty. No significant masses, calcifications, or other findings are seen in either breast. There has been no significant interval change. IMPRESSION: NEGATIVE There is no mammographic evidence of malignancy. A 1 year screening mammogram is recommended. Layne Zaragoza M.D., mc/hafsa:10/05/2023 08:56:02 Overweaver(s): RT Nanci(R)(M), [facility] letter sent: Normal over 40 [...] Health, Family Medicine, and Medical/Surgical Oncology, the [facility] has carefully reviewed the data and reached [...] their providers when to stop screening mammograms. Meat Specialist: Hafsa Transcribe Date/Time: Oct 04 2023 2:34P Dictated by: LAYNE ZARAGOZA MD This examination was interpreted and the report reviewed and electronically signed by: LAYNE ZARAGOZA MD on Oct 05 2023 8:56AM EST [id number] Normal [facility] CNOVon 09-20-2023 CNOV Office Visit ([facility] ) MICHAELLE MAYS ([id number]) 1980 F Date Time Provider Department 09/20/23 12:45 PM ESTELITA RIVERA [facility] During your visit today, we recorded the following information about you: Temperature Pulse Respiration Blood pressure 98.2 degrees 95/minute 21/minute 100/66 Weight 119.5 kg Estelita Rivera PA 09/20/2023 12:53 PM Signed This note was created using EngagementHealthriter. Subjective Michaellefatou Mays is a 43 year [...] Date 09/20/2023 Noted Resolved Adult BMI 30+ [KPZ8587] 02/14/2013 07/02/2017 Angio-edema [T78.3XXA] 01/02/2014 Obesity, Class III, BMI >= 40 E66.01 [E66.01] 07/02/2017 Osteoarthritis [M19.90] 07/02/2017 Urticaria [L50.9] 04/26/2019 ASCUS of cervix with negative high risk HPV [R8*04/2019 Right knee pain [M25.561] 11/13/2019 Effusion of right knee [M25.461] 11/13/2019 Letter Text Encounter Status:Closed by ESTELITA RIVERA on 09/20/23 [facility] CNOVon 08-18-2023 CNOV Office Visit ([facility] ) TRENTMICHAELLE SARABIA ([id number]) 1980 F Date Time Provider Department 08/18/23 1:20 PM JAZZ WRIGHT During your visit today, we recorded the following information about you: Pulse Respiration Blood pressure Weight 81/minute 18/minute 118/70 120.8 kg Jazz Wright APRN.ABSORBER OPERATOR 08/18/2023 2:37 PM Signed 08/18/2023 Patient presents with: Pain: Right arm and shoulder pain from fall in June SUBJECTIVE: This is a 43 year old that is here today for Above Complaints.. In June while carrying laundry stepped into husbands keyon yanez and fell face forward. Reports right arm landed outstretched onto some boxes. Seen in [facility] on 08/04/2023 and had xray [...] No radiographic evidence of acute osseous injury. 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 Johns Morbid obesity (HCC) Plantar fasciitis [...] ER with red flag symptoms Jazz Wright APRN.ABSORBER OPERATOR Prescription instructions reviewed with patient (more content not included)... 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 Johns Morbid obesity (HCC) Plantar fasciitis [...] shoulder. Normal ROM elbow and wrist. Normal call center director strength. Normal sensation right upper extremity. Pulses [...] evaluation. Jasmin (more content not included)... Normal [facility] Jose 08-04-2023 [facility] Telephone (DPQ) MICHAELLE [id number]) 1980 F Date Time Provider Department 08/04/23 [...] Date 08/04/2023 Noted Resolved Adult BMI 30+ [ELD9628] 02/14/2013 07/02/2017 Angio-edema [T78.3XXA] 01/02/2014 Obesity, Class III, BMI >= 40 E66.01 [E66.01] 07/02/2017 Osteoarthritis [M19.90] 07/02/2017 Urticaria [L50.9] 04/26/2019 ASCUS of cervix with negative high risk HPV [R8*04/2019 Right knee pain [M25.561] 11/13/2019 Effusion of right knee [M25.461] 11/13/2019 Encounter Status:Closed by ESSENCE CHAVES on 08/09/23 Normal [facility] XR SHLDR >/=3V AP/VERÓNICA AP/OTH R RTon [...] No radiographic evidence of acute osseous injury. Meat Specialist: [facility] Transcribe Date/Time: Aug 04 2023 9:44A Dictated by : CODIE ESTES MD This examination was interpreted and the report reviewed and electronically signed by: CODIE ESTES MD on Aug 04 2023 9:47AM EST [id number] Normal [facility] XR Shoulder - right 3 Viewso n 08-04-2023 IMPRESSION: No radiographic evidence of acute osseous injury. Meat Specialist: [facility] Transcribe Date/Time: Aug 04 2023 9:44A [...] Acromioclavicular joint intact. DIVISION OF RADIOLOGY Provider, [facility] Татьяна [facility] - 08/04/2023 * * *Final Report* [...] No radiographic evidence of acute osseous injury. Meat Specialist: [facility] Transcribe Date/Time: Aug 04 2023 9:44A Dictated by : CODIE ESTES MD This examination was interpreted and the report reviewed and electronically signed by: CODIE ESTES MD on Aug 04 2023 9:47AM EST [facility] Radiology Study observation (narrative) [facility] XR Shoulder - right 3 ViewsO rdered By: [facility] Provider on 08-04-2023 [facility] CNOVon 07-27-2023 CNOV Office Visit ([facility] ) MICHAELLE MAYS ([id number]) 1980 F Date Time Provider Department 07/27/23 12:45 PM [facility] SK[facility] During your visit today, we recorded the [...] history is provided by the patient. No english language learner tutor was used. 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 Johns Morbid obesity (HCC) Plantar fasciitis [...] or diaphoretic. (more content not included)... Normal [facility] CNOVon 07-11-2023 [facility] MICHAELLE MAYS ([id number]) 1980 F Date Time Provider Department 07/11/23 8:15 AM EULALIA SKINNER [facility] During your visit today, we recorded the following information about you: Temperature Pulse Respiration Blood pressure 97.2 degrees 85/minute 16/minute 122/62 Weight 122.2 kg Eulalia Skinner APRN.ABSORBER OPERATOR 07/11/2023 8:49 AM Signed This note was [...] history is provided by the patient. No english language learner tutor was used. 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 Johns Morbid obesity (HCC) Plantar fasciitis [...] Mucous membrane (more content not included)... Normal [facility] CNOVon 06-30-2023 CNOV Office Visit ([facility]CTR ) MICHAELLE MAYS ([id number]) 1980 F Date Time Provider Department 06/30/23 7:15 AM ESTELITA RIVERA [facility] During your visit today, we recorded the following information about you: Temperature Pulse Respiration Blood pressure 98.5 degrees 88/minute 16/minute 142/78 Weight Last Period 121 kg 06/20/23 Estelita Rivera, SHIN 06/30/2023 7:29 AM Signed BRAT DIET (may eat any of the following as tolerated) Bananas Applesauce [place] Saltine Crackers Animal Crackers Pretzels Oatmeal Unsweetened Dry Cereal (Rice Krispies, Cheerios) Plain Baked or Boiled Potato Plain White Rice Plain Noodles All clear liquid listed below CLEAR LIQUID DIET hour) Broth Jello Popsicles Pedialyte Gatorade NO Milk NO Dairy Products Estelita Rivera PA 06/30/2023 7:33 AM Signed This note was created using EngagementHealthriter. 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 (more content not included)... 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 Johns Morbid obesity (HCC) Plantar fasciitis [...] symptoms - CONSULT TO DERMATOLOGY Jazz Podlogar, RESPIRATORY EQUIPMENT ASSISTANT.ABSORBER OPERATOR Prescription instructions reviewed with patient as applicable. [...] as i (more content not included)... [facility] CNOVon 05-23-2023 CNOV Office Visit (UCWSTR ) MICHAELLE MAYS ([id number]) 1980 F Date Time Provider Department 05/23/23 8:15 AM MERLYN MEDEL [facility] During your visit today, we recorded the following information about you: Temperature Pulse Respiration Blood pressure 98.7 degrees 120/minute 21/minute 138/88 Weight 120.7 kg Merlyn Medel PA-C 05/23/2023 8:23 AM Signed This note was created using [employer]agement[employer]. 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 Johns Morbid obesity (HCC) Plantar fasciitis [...] Date 05/23/2023 Noted Resolved Adult BMI 30+ [UGL6041] 02/14/2013 07/02/2017 Angio-edema [T78.3XXA] 01/02/2014 Obesi (more content not included)... 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 Johns Morbid obesity (HCC) Plantar fasciitis [...] - INFLUENZA AANDB MOLECULAR (POC) Kota Lacy APRN.ABSORBER OPERATOR Allergies As of Date: 05/20/2023 Noted Allergy Reaction HAROLDO INHIBITORS 01/11/2014 18 - Angioedema Comments: History of angioedema BUPROPION/DIETHYLPROP ION 10/16/2002 2 - Rash Comments: Wellbutrin PENICILLINS 04/28/2001 Comments: augmentin Date Reviewed: 05/20/2023 Reviewed by: Kota Lacy APRN.ABSORBER OPERATOR - Fully Assessed Reason for Visit: Cough [28] Cmt: Raspy throat, clammy, fatigue, diarrhea x 2 days Primary Visit Diagnosis:URI, acute [J06.9] Order(s):INFLUENZA AANDB MOLECULAR (POC) [2416560] Order #: [id number]. #:[id number] Prescriptions as of 05/20/2023 - levonorgestrel-ethiny l estradiol (ALTAVERA, 28,) 0.15-0.03 mg per (more content not included)... [facility] INFLUENZA A&B MOLECULAR (POC )on 05-20-2023 Flu A (POCT) Negative Negative [facility] Flu B (POCT) Negative Negative 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 Johns Morbid obesity (HCC) Plantar fasciitis [...] external genitalia normal, normal Bartholin's glands, urethra, Laurie's glands, no vulvar lesions, no cervical lesions, [...] 1 t (more content not included)... 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 Johns Morbid obesity (HCC) Plantar fasciitis [...] Patient agreeable to treatment plan. Maximus Wyatt APRN.ABSORBER OPERATOR Allergies As of Date: 03/29/2023 Noted Allergy [...] AND RSV NAAT, ROUTINE [SQCVFLRS] Order #: [id number] FUTURE COVID AND INFLUENZA A/B AND RSV NAAT, ROUTINE [SQCVFLRS] Order #: [id number]. #:[id number] Prescriptions as of 03/29/2023 - doxepin capsule [...] Date 03/29/2023 Noted Resolved Adult BMI 30+ [YPH3347] 02/14/2013 07/02/2017 Angio-edema [T78.3XXA] 01/02/2014 Obesity, Class III, BMI >= 40 E66.01 [E66.01] 07/02/2017 Osteoarthritis [M19.90] 07/02/2017 Urticaria [L50.9] 04/26/2019 ASCUS of cervix with negative high risk HPV [R8*04/2019 (more content not included)... [facility] COVID AND INFLUENZA A/B AND RSV NAAT, ROUTINEon 03-29-2023 SARS-CoV-2 (COVID-19) RNA VIVIAN+probe Ql (Unsp spec) COVID 19 RESULT: Detected The method used is RT-PCR or an equivalent NAAT method. Reference Range (the expected result in uninfected individuals): Not detected INFLUENZA A PCR: Not detected INFLUENZA B PCR: Not detected RSV PCR: Not detected Abnormal [facility] Comment on above: Performed By: #### C VFLRS ####[facility] LABCLIA [id number] [address] [place] CNOVon 03-23-2023 CNOV Office Visit (WSTR ) MICHAELLE MAYS ([id number]) 1980 F Date Time Provider Department 03/23/23 7:15 AM ESME FELIZ [facility] During your visit today, we recorded the following information about you: Temperature Pulse Respiration Blood pressure 98 degrees 86/minute 16/minute 112/70 Weight 121.6 kg Esme Feliz APRN.ABSORBER OPERATOR 03/23/2023 7:37 AM Signed Subjective The history is provided by the patient. No english language learner tutor was used. 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 [...] in 12-24 hours with results, available on ArrayCommt Considering paxlovid if positive. Will need rx [...] night Tylenol (more content not included)... [facility] COVID AND INFLUENZA A/B AND RSV NAAT, ROUTINEon 03-23-2023 SARS-CoV-2 (COVID-19) RNA VIVIAN+probe Ql (Unsp spec) COVID 19 RESULT: Not detected The method used is RT-PCR or an equivalent NAAT method. Reference Range (the expected result in uninfected individuals): Not detected INFLUENZA A PCR: Not detected INFLUENZA B PCR: Not detected RSV PCR: Not detected [facility] Comment on above: Performed By: #### C VFLRS ####[facility] LABCLIA [id number] [place] [address] [place] JEN SCREENING W [facility] 10-02 [facility] XR KNEE GENERAL 4V AP BOTH/P A BOTH/LAT/MERC RIGHTon 04-23-2022 [facility] JEN SCREENING W [facility] 09-29 [facility] XR Finger - left AP and Late ral and obliqueon 04-24-2020 IMPRESSION: No acute pathology. Meat Specialist: PSCB Transcribe Date/Time: Apr 24 2020 1:58P Dictated by : DEBBIE MULLER DO This examination was interpreted and the report reviewed and electronically signed by: DEBBIE MULLER DO on Apr 24 2020 1:58PM [facility] DIVISION OF RADIOLOGY * * *Final [...] dislocations are seen. DIVISION OF RADIOLOGY Provider, [facility] - 04/24/2020 * * *Final Report* [...] are seen. IMPRESSION IMPRESSION: No acute pathology. Meat Specialist: NICOLA Transcribe Date/Time: Apr 24 2020 1:58P Dictated by : DEBBIE MULLER DO This examination was interpreted and the report reviewed and electronically signed by: DEBBIE MULLER DO on Apr 24 2020 1:58PM EST [facility] Radiology Study observation (narrative) [facility] XR Finger - left AP and Late ral and obliqueOrdered By: Cc Provider on 04-24-2020 [facility] XR Wrist - right 4 Viewson 1 05-08-2019 IMPRESSION: No acute bony finding. [facility] Transcribe Date/Time: Mar 07 2020 9:51A Dictated by : RAMÍREZ SNYDER MD This examination was interpreted and the report reviewed and electronically signed by: RAMÍREZ SNYDER MD on Mar 07 2020 9:52AM [facility] DIVISION OF RADIOLOGY * * *Final [...] Joint spaces maintained. [facility] * * *Final [...] maintained. IMPRESSION IMPRESSION: No acute bony finding. Meat Specialist: [facility] Transcribe Date/Time: Mar 07 2020 9:51A Dictated by : RAMÍREZ SNYDER MD This examination was interpreted and the report reviewed and electronically signed by: RAMÍREZ SNYDER MD on Mar 07 2020 9:52AM EST [facility] Radiology Study observation (narrative) Martin borrego [facility] XR Wrist - right 4 ViewsOrde red By: Ccf Provider on 03-07-2020 [facility] Emergency Room Note on 02-24-2017 [facility] Note Normal [facility] [place] Patient Summary Documentson 02-24-2017 Patient Summary Documents Normal [facility] [place] Vital Signs Date Time Vital Sign Value Performing Clinician Asmita cornell 11-01-2024 21:14-0400 Body temperature 98.1 [degF] Wild Riggins MD Work Phone: [facility] 11-01-2024 21:14-0400 Diastolic blood pressure 75 mm[Hg] Wild Riggins MD Work Phone: [facility] 11-01-2024 21:14-0400 Heart rate 80 /min Wild Riggins MD Work Phone: [facility] 11-01-2024 21:14-0400 Respiratory rate 15 /min Wild Riggins MD Work Phone: 7(590)299-622827 [place] [address] 11-01-2024 21:14-0400 SaO2% (BldA) [Mass fraction] 100 % Wild Riggins MD Work Phone: 1(209)319-771178 [place] [address] 11-01-2024 21:14-0400 Systolic blood pressure 138 mm[Hg] Wild Riggins MD Work Phone: 5(284)723-543527 [place] [address] 11-01-2024 19:24-0400 Body height 165.1 cm Wild Riggins MD Work Phone: 6(626)924-998527 [place] [address] 11-01-2024 19:24-0400 Body mass index (BMI) [Ratio] 43.1 kg/m2 Wild Riggins MD Work Phone: 3(362)186-145427 [place] [address] 11-01-2024 19:24-0400 Body weight 117.56 kg Wild Riggins MD Work Phone: 1(794)383-504727 [place] [address] 06-27-2024 06:27-0400 Body temperature 98.2 [degF] Wild Riggins MD Work Phone: 2(742)188-059927 [place] [address] 06-27-2024 06:27-0400 Diastolic blood pressure 84 mm[Hg] Wild Riggins MD Work Phone: [facility] 06-27-2024 06:27-0400 Heart rate 89 /min Wild Riggins MD Work Phone: 3(316)728-683727 [place] [address] 06-27-2024 06:27-0400 SaO2% (BldA) [Mass fraction] 96 % Wild Riggins MD Work Phone: 4(748)586-897233 [address] 06-27-2024 06:27-0400 Systolic blood pressure 124 mm[Hg] Wild Riggins MD Work Phone: 4(744)190-120333 [address] 06-14-2024 11:24-0400 Body temperature 98.3 [degF] Wild Riggins MD Work Phone: [facility] 06-14-2024 11:24-0400 Diastolic blood pressure 74 mm[Hg] Wild Riggins MD Work Phone: [facility] 06-14-2024 11:24-0400 Heart rate 76 /min Wild Riggins MD Work Phone: [facility] 06-14-2024 11:24-0400 Respiratory rate 16 /min Wild Riggins MD Work Phone: [facility] 06-14-2024 11:24-0400 SaO2% (BldA) [Mass fraction] 99 % Wild Riggins MD Work Phone: [facility] 06-14-2024 11:24-0400 Systolic blood pressure 130 mm[Hg] Wild Riggins MD Work Phone: [facility] 03-02-2024 15:50-0500 Heart rate 90 /min Jacinta Green MD Work Phone: [facility] 03-02-2024 15:50-0500 SaO2% (BldA) [Mass fraction] 100 % Jacinta Green MD Work Phone: [facility] 03-02-2024 13:51-0500 Body mass index (BMI) [Ratio] 43.01 kg/m2 Jacinta Green MD Work Phone: [facility] 03-02-2024 13:51-0500 Body weight 121.4 kg Jacinta Green MD Work Phone: [facility] 01-14-2024 10:52-0400 Body mass index (BMI) [Ratio] 43.58 kg/m2 Merlyn Medel PA-C Work Phone: [facility] 01-14-2024 10:52-0400 Body temperature 98.1 [degF] Merlyn Medel PA-C Work Phone: [facility] 01-14-2024 10:52-0400 Body weight 123 kg Merlyn Athy PA-C Work Phone: [facility] 01-14-2024 10:52-0400 Diastolic blood pressure 84 mm[Hg] Merlyn Athy PA-C Work Phone: [facility] 01-14-2024 10:52-0400 Heart rate 86 /min Merlyn Athy PA-C Work Phone: [facility] 01-14-2024 10:52-0400 Respiratory rate 18 /min Merlyn Athy PA-C Work Phone: [facility] 01-14-2024 10:52-0400 SaO2% (BldA) [Mass fraction] 98 % Merlyn Athy PA-C Work Phone: [facility] 01-14-2024 10:52-0400 Systolic blood pressure 119 mm[Hg] Merlyn Athy PA-C Work Phone: [facility] 12-30-2023 11:19-0400 Body mass index (BMI) [Ratio] 43.62 kg/m2 Krislyn Aberegg PA Work Phone: [facility] 12-30-2023 11:19-0400 Body temperature 97.81 [degF] Krislyn Aberegg PA Work Phone: [facility] 12-30-2023 11:19-0400 Body weight 123.1 kg Krislyn Aberegg PA Work Phone: [facility] 12-30-2023 11:19-0400 Diastolic blood pressure 85 mm[Hg] Krislyn Aberegg PA Work Phone: [facility] 12-30-2023 11:19-0400 Heart rate 79 /min Krislyn Aberegg PA Work Phone: [facility] 12-30-2023 11:19-0400 Respiratory rate 18 /min Krislyn Aberegg PA Work Phone: [facility] 12-30-2023 11:19-0400 SaO2% (BldA) [Mass fraction] 98 % Krislyn Aberegg PA Work Phone: [facility] 12-30-2023 11:19-0400 Systolic blood pressure 147 mm[Hg] Krislyn Aberegg PA Work Phone: [facility] 09-20-2023 12:40-0400 Body mass index (BMI) [Ratio] 42.34 kg/m2 Krislyn Aberegg PA Work Phone: [facility] 09-20-2023 12:40-0400 Body temperature 98.2 [degF] Krislyn Aberegg PA Work Phone: [facility] 09-20-2023 12:40-0400 Body weight 119.5 kg Krislyn Aberegg PA Work Phone: [facility] 09-20-2023 12:40-0400 Diastolic blood pressure 66 mm[Hg] Krislyn Aberegg PA Work Phone: [facility] 09-20-2023 12:40-0400 Heart rate 95 /min Krislyn Aberegg PA Work Phone: [facility] 09-20-2023 12:40-0400 Respiratory rate 21 /min Krislyn Aberegg PA Work Phone: [facility] 09-20-2023 12:40-0400 SaO2% (BldA) [Mass fraction] 99 % Krislyn Aberegg PA Work Phone: [facility] 09-20-2023 12:40-0400 Systolic blood pressure 100 mm[Hg] Krislyn Aberegg PA Work Phone: [facility] 08-18-2023 13:31-0400 Body mass index (BMI) [Ratio] 42.81 kg/m2 Jazz Wright APRN.ABSORBER OPERATOR Work Phone: [facility] 08-18-2023 13:31-0400 Body weight 120.84 kg Jazz Wright APRN.ABSORBER OPERATOR Work Phone: [facility] 08-18-2023 13:31-0400 Diastolic blood pressure 70 mm[Hg] Jazz Podlogar RESPIRATORY EQUIPMENT ASSISTANT.ABSORBER OPERATOR Work Phone: [facility] 08-18-2023 13:31-0400 Heart rate 81 /min Jazz Podlogar RESPIRATORY EQUIPMENT ASSISTANT.ABSORBER OPERATOR Work Phone: [facility] 08-18-2023 13:31-0400 Respiratory rate 18 /min Jazz Podlogar RESPIRATORY EQUIPMENT ASSISTANT.ABSORBER OPERATOR Work Phone: [facility] 08-18-2023 13:31-0400 SaO2% (BldA) [Mass fraction] 96 % Jazz Podlogar RESPIRATORY EQUIPMENT ASSISTANT.ABSORBER OPERATOR Work Phone: [facility] 08-18-2023 13:31-0400 Systolic blood pressure 118 mm[Hg] Jazz Podlogar RESPIRATORY EQUIPMENT ASSISTANT.ABSORBER OPERATOR Work Phone: [facility] 08-04-2023 09:09-0400 Body mass index (BMI) [Ratio] 42.87 kg/m2 Krislyn Aberegg PA Work Phone: [facility] 08-04-2023 09:09-0400 Body temperature 97.7 [degF] Krislyn Aberegg PA Work Phone: [facility] 08-04-2023 09:09-0400 Body weight 121 kg Krislyn Aberegg PA Work Phone: [facility] 08-04-2023 09:09-0400 Diastolic blood pressure 78 mm[Hg] Krislyn Aberegg PA Work Phone: [facility] 08-04-2023 09:09-0400 Heart rate 78 /min Krislyn Aberegg PA Work Phone: [facility] 08-04-2023 09:09-0400 Respiratory rate 16 /min Krislyn Aberegg PA Work Phone: [facility] 08-04-2023 09:09-0400 SaO2% (BldA) [Mass fraction] 97 % Krislyn Aberegg PA Work Phone: [facility] 08-04-2023 09:09-0400 Systolic blood pressure 126 mm[Hg] Krislyn Aberegg PA Work Phone: [facility] 07-27-2023 12:48-0400 Body mass index (BMI) [Ratio] 43.08 kg/m2 Eulalia Skinner RESPIRATORY EQUIPMENT ASSISTANT.ABSORBER OPERATOR Work Phone: [facility] 07-27-2023 12:48-0400 Body temperature 97.81 [degF] Eulalia Skinner RESPIRATORY EQUIPMENT ASSISTANT.ABSORBER OPERATOR Work Phone: [facility] 07-27-2023 12:48-0400 Body weight 121.6 kg Eulalia Skinner RESPIRATORY EQUIPMENT ASSISTANT.ABSORBER OPERATOR Work Phone: [facility] 07-27-2023 12:48-0400 Diastolic blood pressure 68 mm[Hg] Eulalia Skinner RESPIRATORY EQUIPMENT ASSISTANT.ABSORBER OPERATOR Work Phone: [facility] 07-27-2023 12:48-0400 Heart rate 86 /min Eulalia Skinner RESPIRATORY EQUIPMENT ASSISTANT.ABSORBER OPERATOR Work Phone: [facility] 07-27-2023 12:48-0400 Respiratory rate 16 /min Eulalia Skinner RESPIRATORY EQUIPMENT ASSISTANT.ABSORBER OPERATOR Work Phone: [facility] 07-27-2023 12:48-0400 SaO2% (BldA) [Mass fraction] 99 % Eulalia Skinner RESPIRATORY EQUIPMENT ASSISTANT.ABSORBER OPERATOR Work Phone: [facility] 07-27-2023 12:48-0400 Systolic blood pressure 128 mm[Hg] Eulalia Skinner RESPIRATORY EQUIPMENT ASSISTANT.ABSORBER OPERATOR Work Phone: [facility] 07-11-2023 08:10-0400 Body temperature 97.2 [degF] Eulalia Skinner RESPIRATORY EQUIPMENT ASSISTANT.ABSORBER OPERATOR Work Phone: [facility] 07-11-2023 08:10-0400 Body weight 122.2 kg Eulalia Skinner RESPIRATORY EQUIPMENT ASSISTANT.ABSORBER OPERATOR Work Phone: [facility] 07-11-2023 08:10-0400 Diastolic blood pressure 62 mm[Hg] Eulalia Skinner RESPIRATORY EQUIPMENT ASSISTANT.ABSORBER OPERATOR Work Phone: [facility] 07-11-2023 08:10-0400 Heart rate 85 /min Eulalia Skinner RESPIRATORY EQUIPMENT ASSISTANT.ABSORBER OPERATOR Work Phone: [facility] 07-11-2023 08:10-0400 Respiratory rate 16 /min Eulalia Skinner RESPIRATORY EQUIPMENT ASSISTANT.ABSORBER OPERATOR Work Phone: [facility] 07-11-2023 08:10-0400 SaO2% (BldA) [Mass fraction] 98 % Eulalia Skinner RESPIRATORY EQUIPMENT ASSISTANT.ABSORBER OPERATOR Work Phone: [facility] 07-11-2023 08:10-0400 Systolic blood pressure 122 mm[Hg] Eulalia Skinner RESPIRATORY EQUIPMENT ASSISTANT.ABSORBER OPERATOR Work Phone: [facility] 06-30-2023 07:20-0400 Body temperature 98.49 [degF] Krislyn Aberegg PA Work Phone: [facility] 06-30-2023 07:20-0400 Body weight 121.02 kg Krislyn Aberegg PA Work Phone: [facility] 06-30-2023 07:20-0400 Diastolic blood pressure 78 mm[Hg] Krislyn Aberegg PA Work Phone: [facility] 06-30-2023 07:20-0400 Heart rate 88 /min Krislyn Aberegg PA Work Phone: [facility] 06-30-2023 07:20-0400 Respiratory rate 16 /min Krislyn Aberegg PA Work Phone: [facility] 06-30-2023 07:20-0400 SaO2% (BldA) [Mass fraction] 98 % Krislyn Aberegg PA Work Phone: [facility] 06-30-2023 07:20-0400 Systolic blood pressure 142 mm[Hg] Krislyn Aberegg PA Work Phone: [facility] 05-24-2023 14:59-0500 Body temperature 98.4 [degF] Jazz Podlogar RESPIRATORY EQUIPMENT ASSISTANT.ABSORBER OPERATOR Work Phone: [facility] 05-24-2023 14:59-0500 Body weight 120.02 kg Jazz Podlogar RESPIRATORY EQUIPMENT ASSISTANT.ABSORBER OPERATOR Work Phone: [facility] 05-24-2023 14:59-0500 Diastolic blood pressure 80 mm[Hg] Jazz Podlogar RESPIRATORY EQUIPMENT ASSISTANT.ABSORBER OPERATOR Work Phone: [facility] 05-24-2023 14:59-0500 Heart rate 101 /min Jazz Podlogar RESPIRATORY EQUIPMENT ASSISTANT.ABSORBER OPERATOR Work Phone: [facility] 05-24-2023 14:59-0500 Respiratory rate 18 /min Jazz Podlogar RESPIRATORY EQUIPMENT ASSISTANT.ABSORBER OPERATOR Work Phone: [facility] 05-24-2023 14:59-0500 SaO2% (BldA) [Mass fraction] 98 % Jazz Podlogar RESPIRATORY EQUIPMENT ASSISTANT.ABSORBER OPERATOR Work Phone: [facility] 05-24-2023 14:59-0500 Systolic blood pressure 124 mm[Hg] Jazz Podlogar RESPIRATORY EQUIPMENT ASSISTANT.ABSORBER OPERATOR Work Phone: [facility] 05-23-2023 08:09-0500 Body temperature 98.71 [degF] Merlyn Athy PA-C Work Phone: [facility] 05-23-2023 08:09-0500 Body weight 120.66 kg Merlyn Athy PA-C Work Phone: [facility] 05-23-2023 08:09-0500 Diastolic blood pressure 88 mm[Hg] Merlyn Athy PA-C Work Phone: [facility] 05-23-2023 08:09-0500 Heart rate 120 /min Merlyn Athy PA-C Work Phone: [facility] 05-23-2023 08:09-0500 Respiratory rate 21 /min Merlyn Athy PA-C Work Phone: [facility] 05-23-2023 08:09-0500 SaO2% (BldA) [Mass fraction] 95 % Merlyn MELISSA-Annia Work Phone: [facility] 05-23-2023 08:09-0500 Systolic blood pressure 138 mm[Hg] Merlyn Medel PA-C Work Phone: [facility] 05-20-2023 07:14-0500 Body temperature 98.1 [degF] Kota Regino RESPIRATORY EQUIPMENT ASSISTANT.ABSORBER OPERATOR Work Phone: [facility] 05-20-2023 07:14-0500 Body weight 121.2 kg Kota Regino RESPIRATORY EQUIPMENT ASSISTANT.ABSORBER OPERATOR Work Phone: [facility] 05-20-2023 07:14-0500 Diastolic blood pressure 84 mm[Hg] Kota Regino RESPIRATORY EQUIPMENT ASSISTANT.ABSORBER OPERATOR Work Phone: [facility] 05-20-2023 07:14-0500 Heart rate 84 /min Kota Regino RESPIRATORY EQUIPMENT ASSISTANT.ABSORBER OPERATOR Work Phone: [facility] 05-20-2023 07:14-0500 Respiratory rate 21 /min Kota Regino RESPIRATORY EQUIPMENT ASSISTANT.ABSORBER OPERATOR Work Phone: [facility] 05-20-2023 07:14-0500 SaO2% (BldA) [Mass fraction] 98 % Kota Regino RESPIRATORY EQUIPMENT ASSISTANT.ABSORBER OPERATOR Work Phone: [facility] 05-20-2023 07:14-0500 Systolic blood pressure 130 mm[Hg] Kota Regino RESPIRATORY EQUIPMENT ASSISTANT.ABSORBER OPERATOR Work Phone: [facility] 05-13-2023 07:20-0500 Body weight 119.4 kg Kota Vyas MD Work Phone: [facility] 05-13-2023 07:20-0500 Diastolic blood pressure 64 mm[Hg] Kota Vyas MD Work Phone: [facility] 05-13-2023 07:20-0500 Systolic blood pressure 108 mm[Hg] Kota Vyas MD Work Phone: [facility] 03-11-2023 11:05-0500 Body weight 117.66 kg Cheng Mcdaniel MD Work Phone: [facility] 03-11-2023 11:05-0500 Diastolic blood pressure 72 mm[Hg] Cheng Mcdaniel MD Work Phone: [facility] 03-11-2023 11:05-0500 Heart rate 85 /min Cheng Mcdaniel MD Work Phone: [facility] 03-11-2023 11:05-0500 Respiratory rate 16 /min Cheng Mcdaniel MD Work Phone: [facility] 03-11-2023 11:05-0500 SaO2% (BldA) [Mass fraction] 99 % Cheng Mcdaniel MD Work Phone: [facility] 03-11-2023 11:05-0500 Systolic blood pressure 124 mm[Hg] Cheng Mcdaniel MD Work Phone: [facility] 02-23-2023 11:05-0500 Body temperature 98.4 [degF] Lora March RESPIRATORY EQUIPMENT ASSISTANT.ABSORBER OPERATOR Work Phone: [facility] 02-23-2023 11:05-0500 Body weight 119.2 kg Lora March RESPIRATORY EQUIPMENT ASSISTANT.ABSORBER OPERATOR Work Phone: [facility] 02-23-2023 11:05-0500 Diastolic blood pressure 74 mm[Hg] Lora March RESPIRATORY EQUIPMENT ASSISTANT.ABSORBER OPERATOR Work Phone: [facility] 02-23-2023 11:05-0500 Heart rate 78 /min Lora March RESPIRATORY EQUIPMENT ASSISTANT.ABSORBER OPERATOR Work Phone: [facility] 02-23-2023 11:05-0500 Respiratory rate 16 /min Lora March RESPIRATORY EQUIPMENT ASSISTANT.ABSORBER OPERATOR Work Phone: [facility] 02-23-2023 11:05-0500 SaO2% (BldA) [Mass fraction] 98 % Lora March RESPIRATORY EQUIPMENT ASSISTANT.ABSORBER OPERATOR Work Phone: [facility] 02-23-2023 11:05-0500 Systolic blood pressure 118 mm[Hg] Lora March APRN.ABSORBER OPERATOR Work Phone: [facility] 12-02-2022 17:36-0400 Body temperature 98.29 [degF] Micah Pete MD Work Phone: [facility] 12-02-2022 17:36-0400 Body weight 115.21 kg Micah Pete MD Work Phone: [facility] 12-02-2022 17:36-0400 Diastolic blood pressure 82 mm[Hg] Micah Pete MD Work Phone: [facility] 12-02-2022 17:36-0400 Heart rate 82 /min Micah Pete MD Work Phone: [facility] 12-02-2022 17:36-0400 Respiratory rate 16 /min Micah Pete MD Work Phone: [facility] 12-02-2022 17:36-0400 SaO2% (BldA) [Mass fraction] 99 % Micah Pete MD Work Phone: [facility] 12-02-2022 17:36-0400 Systolic blood pressure 122 mm[Hg] Micah Pete MD Work Phone: [facility] 11-16-2022 11:56-0400 Body temperature 98.6 [degF] Kota Lacy RESPIRATORY EQUIPMENT ASSISTANT.ABSORBER OPERATOR Work Phone: [facility] 11-16-2022 11:56-0400 Body weight 115.67 kg Kota Lacy APRN.ABSORBER OPERATOR Work Phone: [facility] 11-16-2022 11:56-0400 Diastolic blood pressure 78 mm[Hg] Kota Lacy APRN.ABSORBER OPERATOR Work Phone: [facility] 11-16-2022 11:56-0400 Heart rate 112 /min Kota Lacy APRN.ABSORBER OPERATOR Work Phone: [facility] 11-16-2022 11:56-0400 Respiratory rate 18 /min Kota Lacy APRN.ABSORBER OPERATOR Work Phone: [facility] 11-16-2022 11:56-0400 SaO2% (BldA) [Mass fraction] 97 % Kota Lacy RESPIRATORY EQUIPMENT ASSISTANT.ABSORBER OPERATOR Work Phone: [facility] 11-16-2022 11:56-0400 Systolic blood pressure 138 mm[Hg] Kota Lacy RESPIRATORY EQUIPMENT ASSISTANT.ABSORBER OPERATOR Work Phone: [facility] 09-07-2022 14:07-0400 Body weight 115.58 kg Jazz Podlogar RESPIRATORY EQUIPMENT ASSISTANT.ABSORBER OPERATOR Work Phone: [facility] 09-07-2022 14:07-0400 Diastolic blood pressure 72 mm[Hg] Jazz Podlogar RESPIRATORY EQUIPMENT ASSISTANT.ABSORBER OPERATOR Work Phone: [facility] 09-07-2022 14:07-0400 Heart rate 78 /min Jazz Podlogar RESPIRATORY EQUIPMENT ASSISTANT.ABSORBER OPERATOR Work Phone: [facility] 09-07-2022 14:07-0400 Respiratory rate 18 /min Jazz Podlogar RESPIRATORY EQUIPMENT ASSISTANT.ABSORBER OPERATOR Work Phone: [facility] 09-07-2022 14:07-0400 SaO2% (BldA) [Mass fraction] 99 % Jazz Podlogar RESPIRATORY EQUIPMENT ASSISTANT.ABSORBER OPERATOR Work Phone: [facility] 09-07-2022 14:07-0400 Systolic blood pressure 116 mm[Hg] Jazz Podlogar RESPIRATORY EQUIPMENT ASSISTANT.ABSORBER OPERATOR Work Phone: [facility] 07-29-2022 07:54-0400 Body weight 115.3 kg Jazz Podlogar RESPIRATORY EQUIPMENT ASSISTANT.ABSORBER OPERATOR Work Phone: [facility] 07-29-2022 07:54-0400 Diastolic blood pressure 66 mm[Hg] Jazz Podlogar RESPIRATORY EQUIPMENT ASSISTANT.ABSORBER OPERATOR Work Phone: [facility] 07-29-2022 07:54-0400 Heart rate 84 /min Jazz Podlogar RESPIRATORY EQUIPMENT ASSISTANT.ABSORBER OPERATOR Work Phone: [facility] 07-29-2022 07:54-0400 Respiratory rate 16 /min Jazz Podlogar RESPIRATORY EQUIPMENT ASSISTANT.ABSORBER OPERATOR Work Phone: [facility] 07-29-2022 07:54-0400 SaO2% (BldA) [Mass fraction] 98 % Jazz Podlogar RESPIRATORY EQUIPMENT ASSISTANT.ABSORBER OPERATOR Work Phone: [facility] 07-29-2022 07:54-0400 Systolic blood pressure 116 mm[Hg] Jazz Podlogar RESPIRATORY EQUIPMENT ASSISTANT.ABSORBER OPERATOR Work Phone: [facility] 07-27-2022 07:33-0400 Body temperature 99.3 [degF] Jazz Podlogar RESPIRATORY EQUIPMENT ASSISTANT.ABSORBER OPERATOR Work Phone: [facility] 07-27-2022 07:33-0400 Body weight 114.67 kg Jazz Podlogar RESPIRATORY EQUIPMENT ASSISTANT.ABSORBER OPERATOR Work Phone: [facility] 07-27-2022 07:33-0400 Diastolic blood pressure 78 mm[Hg] Jazz Podlogar RESPIRATORY EQUIPMENT ASSISTANT.ABSORBER OPERATOR Work Phone: [facility] 07-27-2022 07:33-0400 Heart rate 92 /min Jazz Podlogar RESPIRATORY EQUIPMENT ASSISTANT.ABSORBER OPERATOR Work Phone: [facility] 07-27-2022 07:33-0400 Respiratory rate 16 /min Jazz Podlogar RESPIRATORY EQUIPMENT ASSISTANT.ABSORBER OPERATOR Work Phone: [facility] 07-27-2022 07:33-0400 SaO2% (BldA) [Mass fraction] 98 % Jazz Podlogar RESPIRATORY EQUIPMENT ASSISTANT.ABSORBER OPERATOR Work Phone: [facility] 07-27-2022 07:33-0400 Systolic blood pressure 120 mm[Hg] Jazz Podlogar RESPIRATORY EQUIPMENT ASSISTANT.ABSORBER OPERATOR Work Phone: [facility] 05-06-2022 08:47-0500 Body weight 111.04 kg Micah Jo MD Work Phone: [facility] 05-06-2022 08:47-0500 Diastolic blood pressure 78 mm[Hg] Micah Jo MD Work Phone: [facility] 05-06-2022 08:47-0500 Systolic blood pressure 126 mm[Hg] Micah Jo MD Work Phone: [facility] 03-06-2022 13:23-0500 Body temperature 98.29 [degF] Eulalia Skinner RESPIRATORY EQUIPMENT ASSISTANT.ABSORBER OPERATOR Work Phone: [facility] 03-06-2022 13:23-0500 Body weight 107.14 kg Eulalia Skinner RESPIRATORY EQUIPMENT ASSISTANT.ABSORBER OPERATOR Work Phone: [facility] 03-06-2022 13:23-0500 Diastolic blood pressure 66 mm[Hg] Eulalia Skinner RESPIRATORY EQUIPMENT ASSISTANT.ABSORBER OPERATOR Work Phone: [facility] 03-06-2022 13:23-0500 Heart rate 86 /min Eulalia Skinner RESPIRATORY EQUIPMENT ASSISTANT.ABSORBER OPERATOR Work Phone: [facility] 03-06-2022 13:23-0500 Respiratory rate 16 /min Eulalia Skinner RESPIRATORY EQUIPMENT ASSISTANT.ABSORBER OPERATOR Work Phone: [facility] 03-06-2022 13:23-0500 SaO2% (BldA) [Mass fraction] 98 % Eulalia Skinner RESPIRATORY EQUIPMENT ASSISTANT.ABSORBER OPERATOR Work Phone: [facility] 03-06-2022 13:23-0500 Systolic blood pressure 126 mm[Hg] Eulalia Skinner RESPIRATORY EQUIPMENT ASSISTANT.ABSORBER OPERATOR Work Phone: [facility] 12-02-2021 12:49-0400 Body temperature 97.81 [degF] Merlyn Athy PA-C Work Phone: [facility] 12-02-2021 12:49-0400 Body weight 106.59 kg Merlyn Athy PA-C Work Phone: [facility] 12-02-2021 12:49-0400 Diastolic blood pressure 72 mm[Hg] Merlyn Athy PA-C Work Phone: [facility] 12-02-2021 12:49-0400 Heart rate 68 /min Merlyn Athy PA-C Work Phone: [facility] 12-02-2021 12:49-0400 Respiratory rate 16 /min Merlyn Paytony PA-C Work Phone: [facility] 12-02-2021 12:49-0400 SaO2% (BldA) [Mass fraction] 99 % Merlynalexander Paytony PA-C Work Phone: [facility] 12-02-2021 12:49-0400 Systolic blood pressure 128 mm[Hg] Merlyn Paytony PA-C Work Phone: [facility] 08-26-2021 11:55-0400 Body temperature 97.39 [degF] Esme Tray RESPIRATORY EQUIPMENT ASSISTANT.ABSORBER OPERATOR Work Phone: [facility] 08-26-2021 11:55-0400 Body weight 106.32 kg Esme Tray RESPIRATORY EQUIPMENT ASSISTANT.ABSORBER OPERATOR Work Phone: [facility] 08-26-2021 11:55-0400 Diastolic blood pressure 68 mm[Hg] Esme Tray RESPIRATORY EQUIPMENT ASSISTANT.ABSORBER OPERATOR Work Phone: [facility] 08-26-2021 11:55-0400 Heart rate 87 /min Esme Tray RESPIRATORY EQUIPMENT ASSISTANT.ABSORBER OPERATOR Work Phone: [facility] 08-26-2021 11:55-0400 Respiratory rate 18 /min Esme Tray RESPIRATORY EQUIPMENT ASSISTANT.ABSORBER OPERATOR Work Phone: [facility] 08-26-2021 11:55-0400 SaO2% (BldA) [Mass fraction] 98 % Esme Tray RESPIRATORY EQUIPMENT ASSISTANT.ABSORBER OPERATOR Work Phone: [facility] 08-26-2021 11:55-0400 Systolic blood pressure 116 mm[Hg] Esme Tray RESPIRATORY EQUIPMENT ASSISTANT.ABSORBER OPERATOR Work Phone: [facility] Encounters Encounter Date Encounter Type Care Provider Facility Start: 11-17-2024 End: 11-17-2024 ambulatory Wild Riggins MD Work Phone: -Cardiovascular Services Start: 11-17-2024 End: 11-17-[address] Wild Riggins MD -Cardiovascular Services Work Phone: Start: 11-17-2024 End: 11-17-2024 ambulatory Wild Riggins Facility:[facility] [place] Start: 11-01-2024 End: 11-01-2024 Emergency department patient visit Wild Riggins MD Work Phone: -Emergency Department Work Phone: Start: 10-09-2024 End: 10-09-2024 ambulatory Wild Riggins MD Work Phone: -Outpatient Breast Imaging Start: 10-09-2024 End: 10-09-2024 [facility] encounter [facility] -Outpatient Breast Imaging Work Phone: Start: 10-09-2024 End: 10-09-2024 ambulatory Nico [facility] Facility:[facility] [place] Start: 10-02-2024 End: 10-02-2024 ambulatory DEMARCUS LARSEN Facility:[facility] Start: 10-02-2024 End: 10-02-[address] DEMARCUS LARSEN MD [facility] Start: 06-27-2024 End: 06-27-2024 Patient encounter procedure Kunal Adams [facility] Work Phone: Start: 06-27-2024 End: 06-27-2024 ambulatory Wild Riggins Facility:[facility] Start: 06-14-2024 End: 06-14-2024 Patient encounter procedure Kuanl Adams PA -[facility] Work Phone: Start: 06-14-2024 End: 06-14-2024 ambulatory Wild Riggins Facility:[facility] Start: 05-15-2024 End: 05-15-2024 ambulatory Nico [facility] Facility:[facility] [place] Start: 03-12-2024 End: 03-13-2024 ambulatory Jacinta Green MD Work Phone: Allergy Comment on above: Blood test results Start: 03-12-2024 End: 03-13-2024 E-mail encounter from caregiver Jacinta Green MD Work Phone: Allergy Start: 03-02-2024 End: 03-02-2024 ambulatory JACINTA GREEN Facility:[facility] Start: 03-02-2024 End: 03-02-2024 Office outpatient visit 40 minutes Jacinta Green MD Work Phone: Allergy Comment on above: Allergy to penicilli n (Primary Dx); Urticaria; Angioedema, subsequent encounter Start: 02-15-2024 End: 02-15-2024 ambulatory Chalon Vaishnavi Facility:[facility] Start: 02-10-2024 End: 02-10-2024 ambulatory Chalon Vaishnavi Facility:[facility] [place] Start: 01-31-2024 End: 01-31-2024 ambulatory [facility] Facility:[facility] [place] Start: 01-27-2024 End: 01-27-2024 ambulatory [facility] Facility:[facility] Start: 01-27-2024 End: 01-27-2024 Office outpatient visit 25 minutes Jacinta Green MD Work Phone: Allergy Comment on above: Urticaria (Primary D x); Angioedema, subsequent encounter; Allergy to penicillin Start: 01-24-2024 End: 01-26-2024 ambulatory Veronique Johns MD Work Phone: Allergy Comment on above: Possibly upping my d [place] Start: 01-24-2024 End: 01-26-2024 Patient encounter procedure Veronique Johns MD Work Phone: Allergy Comment on above: Yearly appointment Start: 01-14-2024 End: 01-14-2024 ambulatory CHENG MCDANIEL Facility:[facility] Start: 01-14-2024 End: 01-14-2024 Patient encounter procedure Merlyn Medel PA-C Work Phone: [facility] Comment on above: Viral URI (Primary D x); Sinus congestion Start: 12-30-2023 End: 12-30-2023 ambulatory CHENG MCDANIEL Facility:[facility] Start: 12-30-2023 End: 12-30-2023 Patient encounter procedure Estelita MELISSA Work Phone: [facility] Comment on above: Strain of neck muscl e, initial encounter (Primary Dx) Start: 12-07-2023 End: 12-21-2023 ambulatory Veronique Johns MD Work Phone: Allergy Comment on above: Swelling of my brii e Start: 12-06-2023 End: 12-14-2023 Telephone encounter Cheng Mcdaniel MD Work Phone: [facility] Comment on above: Appointment Start: 12-03-2023 End: 12-03-2023 Emergency department patient visit Alexis Mcdaniel Facility:[facility] [place] Start: 10-05-2023 Documentation procedure Mammog owen Coordinator [facility] Start: 10-05-2023 Letter encounter Mammography Coordinator [facility] Start: 10-04-2023 End: 10-04-2023 ambulatory MICAH JO Facility:[facility] Start: 10-04-2023 End: 10-04-2023 Subsequent hospital visit by physician Screen Mammo [facility] Comment on above: Encounter for screen ing mammogram for malignant neoplasm of breast [Z12.31] Start: 09-20-2023 End: 09-20-2023 ambulatory CHENG MCDANIEL Facility:[facility] Start: 09-20-2023 End: 09-20-2023 Patient encounter procedure Estelita MELISSA Work Phone: [facility] Comment on above: Fatigue, unspecified type (Primary Dx) Start: 08-24-2023 Refill Annemarie Vetovit silviano MELISSA-Annia Work Phone: Orthopaedics Comment on above: Refill Request Start: 08-18-2023 End: 08-18-2023 ambulatory JAZZ PODLOGAR Facility:[facility] Start: 08-18-2023 End: 08-18-2023 Patient encounter procedure Jazz Podlogar RESPIRATORY EQUIPMENT ASSISTANTANNETTE Work Phone: [facility] Comment on above: Acute pain of right shoulder (Primary Dx) Start: 08-04-2023 Telephone encounter Deon anna MD Work Phone: [facility] [place] Comment on above: Appointment Cancelle d (08/26/23 needs rescheduled, see notes for contact attempts./) Start: 08-04-2023 End: 08-04-2023 Subsequent hospital visit by physician Xr [facility] Work Phone: Radiology Comment on above: Acute pain of right shoulder [M25.511] Start: 08-04-2023 End: 08-04-2023 ambulatory CHENG MCDANIEL Facility:[facility] Start: 08-04-2023 End: 08-04-2023 Patient encounter [...] Start: 07-11-2023 End: 07-11-2023 ambulatory CHENG MCDANIEL Facility:[facility] Start: 07-11-2023 End: 07-11-2023 Patient encounter procedure Eulalia Skinner RESPIRATORY EQUIPMENT ASSISTANT.ABSORBER OPERATOR Work Phone: [facility] Comment on above: Blister of left hand excluding fingers, subsequent encounter (Primary Dx) Start: 06-30-2023 End: 06-30-2023 ambulatory CHENG MCDANIEL Facility:[facility] Start: 06-30-2023 End: 06-30-2023 Patient encounter procedure Estelita MELISSA Work Phone: [facility] Comment on above: Diarrhea, unspecifie d type (Primary Dx) Start: 05-24-2023 End: 05-24-2023 ambulatory JAZZ PODLOGAR Facility:[facility] Start: 05-24-2023 End: 05-24-2023 Patient encounter procedure Jazz Wright RESPIRATORY EQUIPMENT ASSISTANT.ABSORBER OPERATOR Work Phone: [facility] Comment on above: Blister (nonthermal) of left hand, sequela (Primary Dx) Start: 05-23-2023 End: 05-23-2023 ambulatory CHENG MCDANIEL Facility:[facility] Start: 05-23-2023 End: 05-23-2023 Patient encounter procedure Merlyn Medel PA-C Work Phone: [facility] Comment on above: Blister of left hand , initial encounter (Primary Dx) Start: 05-20-2023 End: 05-20-2023 ambulatory CHENG MCDANIEL Facility:[facility] Start: 05-20-2023 End: 05-20-2023 Patient encounter procedure Kota Lacy APRN.ABSORBER OPERATOR Work Phone: [facility] Comment on above: URI, acute (Primary Dx) Start: 05-13-2023 End: 05-13-2023 ambulatory KOTA VYAS Facility:[facility] Start: 05-13-2023 End: 05-13-2023 Patient encounter procedure Kota Vyas MD Work Phone: Obstetrics/Gynecology Comment on above: Encounter for gyneco logical examination (general) (routine) without abnormal findings (Primary Dx); Medication refill; Encounter for surveillance of contraceptive pills Start: 05-13-2023 End: 05-13-2023 Patient encounter status Kota Vyas MD Work Phone: [facility] Work Phone: Start: 05-03-2023 Refill Cecilia Gomez RESPIRATORY EQUIPMENT ASSISTANT.ABSORBER OPERATOR Work Phone: Allergy Comment on above: Refill Request Start: 03-29-2023 End: 03-29-2023 ambulatory CHENG MCDANIEL Facility:[facility] Start: 03-23-2023 End: 03-23-2023 ambulatory CHENG MCDANIEL Facility:[facility] Start: 03-11-2023 End: 03-11-2023 Patient encounter procedure Cheng Mcdaniel MD Work Phone: [facility] Comment on above: Acute pain of right knee (Primary Dx) Start: 02-23-2023 End: 02-23-2023 Patient encounter procedure Lora March RESPIRATORY EQUIPMENT ASSISTANT.ABSORBER OPERATOR Work Phone: [facility] Comment on above: Viral illness (Prima ry Dx) Start: 12-02-2022 End: 12-02-2022 Patient encounter procedure iMcah Pete MD Work Phone: [facility] Comment on above: URI, acute (Primary Dx) Start: 12-01-2022 Refill Cecilia Whitsel RESPIRATORY EQUIPMENT ASSISTANT.ABSORBER OPERATOR Work Phone: Allergy Comment on above: Refill Request Start: 11-30-2022 Refill Veronique Johns MD Work Phone: Allergy Comment on above: Refill Request Start: 11-16-2022 End: 11-16-2022 Patient encounter procedure Kota Lacy RESPIRATORY EQUIPMENT ASSISTANT.ABSORBER OPERATOR Work Phone: [facility] Comment on above: Fatigue, unspecified type (Primary Dx) Start: 11-05-2022 Refill Cecilia Whitsel RESPIRATORY EQUIPMENT ASSISTANT.ABSORBER OPERATOR Work Phone: Allergy Comment on above: Refill Request Start: 10-14-2022 End: 10-14-2022 Patient encounter procedure Treva Reynolds MD Work Phone: Otolaryngology Comment on above: Impacted cerumen of left ear (Primary Dx) Start: 10-02-2022 End: 10-02-2022 Subsequent hospital visit by physician Screen Mammo [facility] Comment on above: Encounter for screen ing mammogram for malignant neoplasm of breast [Z12.31] Start: 09-07-2022 End: 09-07-2022 Patient encounter procedure Jazz Wright RESPIRATORY EQUIPMENT ASSISTANT.ABSORBER OPERATOR Work Phone: [facility] Comment on above: Acute left-sided low back pain without sciatica (Primary Dx); Blister of left hand, initial encounter Start: 08-22-2022 ambulatory Treva Reynolds MD Work Phone: Otolaryngology Comment on above: My left ear. Start: 07-29-2022 End: 07-29-2022 Patient encounter procedure Jazz Wright APRN.ABSORBER OPERATOR Work Phone: [facility] Comment on above: Skin infection (Prim leanne Dx); Blister of skin Start: 07-27-2022 End: 07-27-2022 Patient encounter procedure Jazz Wright APRN.ABSORBER OPERATOR Work Phone: [facility] Comment on above: Skin infection (Prim leanne Dx) Start: 07-22-2022 Telephone encounter Estelita MELISSA Work Phone: [facility] Comment on above: Medication Problem Start: 07-10-2022 Telephone encounter Kota pal APRN.ABSORBER OPERATOR Work Phone: [facility] Comment on above: Letter Start: 2022 End: 2022 Nursing evaluation of patient and report Mi Nurse Work Phone: [facility] Comment on above: Encounter for long-t [...] 04-23-2022 Subsequent hospital visit by physician Ingrid [facility] Mcnally Work Phone: Radiology Comment on above: Right knee pain, uns pecified chronicity [M25.561] Start: 04-18-2022 Refill Annemarie shore PA-C Work Phone: Orthopaedics Comment on above: Refill Request Start: 04-15-2022 Orders Only Arthur Krishnan MD Work Phone: Orthopaedics Comment on above: Right knee pain, uns pecified chronicity (Primary Dx) Start: 03-06-2022 End: 03-06-2022 Patient encounter procedure Eulalia Skinner RESPIRATORY EQUIPMENT ASSISTANT.ABSORBER OPERATOR Work Phone: [facility] Comment on [...] with patient Veronique Johns MD Work Phone: [facility] Start: 12-02-2021 End: 12-02-2021 Patient encounter procedure Merlyn Medel PA-C Work Phone: [facility] Comment on above: Diarrhea, unspecifie d type (Primary Dx) Start: 09-29-2021 Documentation procedure Mammog owen Coordinator [facility] Start: 09-29-2021 Letter encounter Mammography Coordinator [facility] Department Start: 09-29-2021 End: 09-29-2021 Subsequent hospital visit by physician Screen Mammo [facility] Comment on above: Encounter for screen ing mammogram for malignant neoplasm of breast [Z12.31] Start: 09-09-2021 Orders Only Annemarie shore PA-C Work Phone: Orthopaedics Comment on above: Primary osteoarthrit is of right knee Start: 09-01-2021 Refill Veronique Johns MD Work Phone: Allergy Comment on above: Refill Request Start: 08-26-2021 End: 08-26-2021 Patient encounter procedure Esme Feliz RESPIRATORY EQUIPMENT ASSISTANT.ABSORBER OPERATOR Work Phone: [facility] Comment on above: Nausea (Primary Dx); Diarrhea, unspecified type; Abdominal cramping Start: 08-08-2021 End: 08-08-2021 ambulatory Veronique Johns MD Work Phone: Allergy Comment on above: Encounter for long-t erm (current) use of medications (Primary Dx); Urticaria; Angioedema, subsequent encounter; Cough Start: 08-08-2021 End: 08-08-2021 Telemedicine consultation with patient Veronique Johns MD Work Phone: [facility] Start: 07-20-2021 Refill Ceciliaheron Gomez APRN.CNP Work Phone: Allergy Comment on above: Refill Request Start: 04-24-2020 End: 04-24-2020 Subsequent hospital visit by physician Xr [facility] Work Phone: Radiology Comment on above: Pain of left middle finger [M79.645] Start: 03-07-2020 End: 03-07-2020 Subsequent hospital visit by physician Xr [facility] Work Phone: Radiology Comment on above: Wrist injury, right, initial encounter [S69.91XA] Start: 02-23-2017 End: 02-24-2017 Emergency department patient visit [facility] Facility:B Procedures Date Procedure Procedure Detail [...] INFLUENZA A&B MOLECU LAR (POC) Kota Lacy RESPIRATORY EQUIPMENT ASSISTANT.ABSORBER OPERATOR Work Phone: Start: 10-02-2022 End: 10-02-2022 Mammography Micah Jo MD Work Phone: Start: 04-23-2022 Radiologic exam knee complete 4/more views Arthur Krishnan MD Work Phone: Start: 09-29-2021 JEN SCREENING W CHRISTOPHER Jo MD Work Phone: Start: 09-29-2021 Mammography Screen Wst r Start: 10-20-2020 Adult depression scr eening assessment Cecilia Jason RESPIRATORY EQUIPMENT ASSISTANT.ABSORBER OPERATOR Work Phone: Start: 09-26-2020 Lipid 1996 panel - S aditya or Plasma Kota Vyas MD Work Phone: Start: 09-26-2020 Mammography Cecilia Mine tolbert RESPIRATORY EQUIPMENT ASSISTANT.ABSORBER OPERATOR Work Phone: Start: 04-24-2020 Radex fingr minimum 2 views Gm Martel RESPIRATORY EQUIPMENT ASSISTANT.ABSORBER OPERATOR Work Phone: Start: 03-07-2020 Radex wrist complete minimum 3 views Merlyn MELISSA-Annia Work Phone: Cholecystectomy DR DEMARCUS JENSEN MD Comment on above: LAPAROSCOPIC Plan of Treatment Date Care Activity Detail Author Start: 03-02-2027 Diabetes Screening Diabetes Screenin g [facility] Start: 02-08-2026 Diabetes Screening Diabetes Screenin g [facility] Start: 09-26-2025 Lipid panel Lipid Screening [facility] Start: 11-01-2024 [facility] Start: 10-03-2024 Screening for malign ant neoplasm of breast Mammogram Screening [facility] Start: 04-26-2024 HPV TESTING HPV TESTING [facility] Start: 04-26-2024 Screening for malign ant neoplasm of cervix HPV Testing [facility] Start: 03-02-2024 End: 06-01-[address] [facility] Comment on above: Expected: 03/02/2024 , Expires: 06/01/2024 Start: 03-02-2024 End: 06-01-2024 Complement C1 esterase inhibitor [Mass/volume] in Serum or Plasma [facility] Comment on above: Expected: 03/02/2024 , Expires: 06/01/2024 Start: 03-02-2024 End: 06-01-2024 Complement C1 esterase inhibitor.functional/Co mplement C1 esterase inhibitor.total in Serum or Plasma [facility] Work Phone: Comment on above: Expected: 03/02/2024 , Expires: 06/01/2024 Start: 03-02-2024 End: 06-01-2024 Complement C4 [Mass/volume] in Serum or Plasma [facility] Comment on above: Expected: 03/02/2024 , Expires: 06/01/2024 Start: 03-02-2024 End: 06-01-2024 Comprehensive metabolic 2000 panel - Serum or Plasma [facility] Comment on above: Expected: 03/02/2024 , Expires: 06/01/2024 Start: 03-02-2024 End: 03-02-2024 Patient encounter procedure 03/02/2024 2:00 PM EST Office Visit Allergy [address] [place] [address] [place] [address] [place] [address] SKIN TESTING, INTRADERMAL - PENICILLIN Allergy Comment on above: SKIN TESTING, INTRAD ERMAL - PENICILLIN Start: 01-27-2024 End: 01-27-2024 Follow-up encounter 01/27/2024 3:30 PM EST [facility] Allergy [address] [place] [address] [place] [address] [place] [address] ANNUAL FOLLOW UP - VIRTUAL Allergy Comment on above: ANNUAL FOLLOW UP - V IRTUAL Start: 11-21-2023 Covid-19 Vaccine ( season) Covid-19 Vaccine () [facility] Start: 11-21-2023 Covid-19 Vaccine () Covid-19 Vaccine () [facility] Start: 11-21-2023 Influenza vaccination C [facility] Start: 11-08-2023 End: 11-08-2023 Patient encounter procedure 11/08/2023 1:00 PM EDT Office Visit Orthopaedics [address] [place] [address] Annemarie Dick PA-C [address] [place] [address] Acute pain of right shoulder [M25.511] Orthopaedics Comment on above: Acute pain of right shoulder [M25.511] Start: 10-04-2023 End: 10-04-2023 Patient encounter procedure 10/04/2023 2:50 PM EDT Appointment Mammogram [address] [place] [address] Mammogram Start: 10-03-[address] [facility] Start: 10-03-2023 Screening for malign ant neoplasm of breast Mammogram Screening [facility] Start: 08-26-2023 End: 08-26-2023 Patient encounter procedure 08/26/2023 10:40 AM EDT Office Visit Dermatology [address] [place] [address] [place] [address] [place] [address] Blister of left hand, initial encounter [S60.522A (ICD-10-CM)] Dermatology Comment on above: Blister of left hand , initial encounter [S60.522A (ICD-10-CM)] Start: 2023 Screening for malign ant neoplasm of colon [facility] Start: 04-29-2023 PAP TESTING PAP TESTING [facility] Start: 04-29-2023 Screening for malign ant neoplasm of cervix [facility] Start: 03-22-2023 Behavioral Health Screening Behavioral Health Screening [facility] Start: 03-22-2023 [facility] Start: 12-06-[address] [facility] Start: 11-20-2022 Covid-19 Vaccine ( season) Covid-19 Vaccine ( season) [facility] Start: 11-20-2022 Influenza vaccination [facility] Start: 09-29-[address] [facility] Start: 03-22-2022 DEPRESSION ASSESSMENT DEPRESSION ASS ESSMENT [facility] Start: 02-02-2022 End: 04-04-2022 CBC W Auto Differential panel - Blood CBC + DIFF Lab Routine Urticaria Angioedema, subsequent encounter Expected: 02/02/2022, Expires: 04/04/2022 [facility] Work Phone: Comment on above: Expected: 02/02/2022 , Expires: 04/04/2022 Start: 02-02-2022 End: 04-04-2022 Comprehensive metabolic 2000 panel - Serum or Plasma COMP METABOLIC PANEL Lab Routine Urticaria Angioedema, subsequent encounter Expected: 02/02/2022, Expires: 04/04/2022 [facility] Work Phone: Comment on above: Expected: 02/02/2022 , Expires: 04/04/2022 Start: 11-20-2021 Influenza vaccination INFLUENZA (#1) [facility] Start: 10-20-2021 Adult depression screening assessment DEPRESSION SCREENING [facility] Start: 09-26-[address] [facility] Start: 08-08-2021 End: 10-08-2021 CBC W Auto Differential panel - Blood CBC + DIFF Lab Routine Encounter for long-term (current) use of medications Expected: 08/08/2021, Expires: 10/08/2021 [facility] Work Phone: Comment on above: Expected: 08/08/2021 , Expires: 10/08/2021 Start: 08-08-2021 End: 10-08-2021 Comprehensive metabolic 2000 panel - Serum or Plasma COMP METABOLIC PANEL Lab Routine Encounter for long-term (current) use of medications Expected: 08/08/2021, Expires: 10/08/2021 [facility] Work Phone: Comment on above: Expected: 08/08/2021 , Expires: 10/08/2021 Start: 03-22-2021 DEPRESSION ASSESSMENT DEPRESSION ASS ESSMENT [facility] Start: 1996 Anxiety Screening Anxiety Screening [facility] Start: 1996 Depression Screening Depression Scre ening [facility] End: 08-12-2024 DBT Breast - bilateral screening JEN SCREENING W [facility] Radiology Routine Encounter for screening mammogram for malignant neoplasm of breast 1 Occurrences starting 07/14/2023 until 08/12/2024 [facility] Work Phone: Comment on above: 1 Occurrences starti ng 07/14/2023 until 08/12/2024 DBT Breast - bilater al screening JEN SCREENING [facility] Radiology Routine Encounter for screening mammogram for malignant neoplasm of breast 10/04/2023 2:56 PM EDT [facility] Work Phone: End: 08-08-2022 ECG COMPLETE ECG COMPLETE ECG Routine Encounter for long-term (current) use of medications 1 Occurrences starting 08/08/2021 until 08/08/2022 [facility] Work Phone: Comment on above: 1 Occurrences starti ng 08/08/2021 until 08/08/2022 End: 02-02-2023 ECG COMPLETE ECG COMPLETE ECG Routine Encounter for long-term (current) use of medications 1 Occurrences starting 02/02/2022 until 02/02/2023 [facility] Work Phone: Comment on above: 1 Occurrences starti ng 02/02/2022 until 02/02/2023 End: 06-05-2023 JEN SCREENING W CHRISTOPHER JEN SCREENING [facility] Radiology Routine Encounter for screening mammogram for malignant neoplasm of breast 1 Occurrences starting 05/06/2022 until 06/05/2023 [facility] Work Phone: Comment on above: 1 Occurrences starti ng 05/06/2022 until 06/05/2023 Patient Education ED Abrasion ED Neck Sprain or Strain ED Fall Prevention [facility] Work Phone: End: 05-15-2023 XR KNEE GENERAL 4V AP BOTH/PA BOTH/LAT/MERC RIGHT XR KNEE GENERAL 4V AP BOTH/PA BOTH/LAT/MERC RIGHT Radiology Routine Right knee pain, unspecified chronicity 1 Occurrences starting 04/15/2022 until 05/15/2023 [facility] Work Phone: Comment on above: 1 Occurrences starti ng 04/15/2022 until 05/15/2023 [facility] Immunizations Immunization Date Immunization Notes Care Provider [facility] 12-18-2023 COVID-19 vaccine, ag e 12+ yr (MODERNA) Estelita MELISSA Work Phone: [facility] 12-18-2023 influenza virus vaccine, split virus (incl. purified surface antigen) Estelita MELISSA Work Phone: [facility] 01-03-2022 COVID-19 booster vaccine, age 12+ yr, bivalent (MODERNA) Veronique Johns MD Work Phone: [facility] Work Phone: 01-03-2022 Influenza, injectabl e, Madin Mandy Canine Kidney, preservative free, quadrivalent Veronique Johns MD Work Phone: [facility] 01-03-2022 influenza, seasonal, injectable, preservative free Veronique Johns MD Work Phone: [facility] Work Phone: 01-03-2022 influenza virus vaccine, unspecified formulation Cecilia Gomez APRN.ABSORBER OPERATOR Work Phone: [facility] 12-27-2020 influenza, injectabl e, quadrivalent, preservative free Cecilia Gomez APRN.ABSORBER OPERATOR Work Phone: [facility] 08-15-2020 COVID-19 vaccine, fu ll dose (MODERNA) Cecilia Whitsel RESPIRATORY EQUIPMENT ASSISTANT.ABSORBER OPERATOR Work Phone: [facility] 07-11-2020 COVID-19 vaccine, fu ll dose (MODERNA) Cecilia Whitsel RESPIRATORY EQUIPMENT ASSISTANT.ABSORBER OPERATOR Work Phone: [facility] 12-07-2019 influenza, injectabl e, quadrivalent, preservative free Cecilia Whitsel RESPIRATORY EQUIPMENT ASSISTANT.ABSORBER OPERATOR Work Phone: [facility] 12-23-2018 influenza, injectabl e, quadrivalent, contains preservative Cecilia Whitsel RESPIRATORY EQUIPMENT ASSISTANT.ABSORBER OPERATOR Work Phone: [facility] 12-19-2017 influenza, seasonal, injectable Cecilia Whitsel RESPIRATORY EQUIPMENT ASSISTANT.ABSORBER OPERATOR Work Phone: [facility] 12-06-2012 tetanus toxoid, redu luis enrique diphtheria toxoid, and acellular pertussis vaccine, adsorbed Cecilia Whitsel RESPIRATORY EQUIPMENT ASSISTANT.ABSORBER OPERATOR Work Phone: [facility] Payers Date Payer Category Payer Private Health Insurance [id number] 2023 Self-pay 2022 Unknown [id number] 2021 Unknown MMO MMO [employer] [id number] 2021-Present [phone] [address] [place] [address] PPO [id number] 2019 Unknown [id number] 2017 Unknown [id number] 1978 Unknown [id number] 27 Unknown [id number] 62 Unknown [id number] 62 Unknown [id number] 62 Unknown [id number] 62 Unknown [id number] 62 Unknown [id number] 62 Unknown [id number] [id number] 62 Unknown [id number] 62 Unknown [id number] 62 Unknown [id number] 62 Social History Date Type Detail Facility Start: 12-06-2012 End: 11-01-2024 Tobacco smoking status NHIS Ex-smoker [facility] Comment on above: QUIT 12 YEARS AGO Start: 08-29-2004 End: 08-29-2012 History of tobacco use Current smoker [facility] Start: 12-06-2012 End: 07-26-2022 Cigarettes smoked current (pack per day) - Reported 0.5 [facility] Start: 12-06-2012 End: 12-30-2023 Tobacco use and exposure Smokeless tobacco non-user [facility] Start: 05-19-2021 End: 01-14-2024 Alcohol intake Current drinker of alcohol (finding) [facility] Start: 01-25-2020 End: 07-26-2022 History SDOH Alcohol Frequency 1 [facility] Start: 10-09-2019 End: 07-26-2022 History SDOH Alcohol Std Drinks 2 [facility] Start: 02-14-2013 History SDOH Alcohol Comment rarely [facility] Start: 01-25-2020 End: 07-26-2022 History SDOH Social Connections Get Together 98 [facility] Start: 05-31-2019 End: 07-26-2022 History SDOH Social Connections Living 3 [facility] Start: 09-26-2019 End: 07-26-2022 History SDOH Physical Activity DPW 0 [facility] Start: 09-26-2019 End: 07-26-2022 History SDOH Financial 5 [facility] Start: 05-31-[address] [facility] Start: 1980 Sex Assigned At Female C [facility] Start: 02-06-2020 End: 02-11-2022 Exposure to SARS-CoV-2 (event) Not sure [facility] Start: 08-29-2004 End: 08-29-2012 History of tobacco use Cigarette Smoker [facility] Work Phone: Start: 07-26-2022 End: 08-18-2023 Social connection and isolation panel [facility] How often do you get together with friends or relatives? Patient refused [facility] Do you belong to any clubs or organizations such as anabaptist groups, unions, fraternal or athletic groups, or school groups? No [facility] Are you now , , , , never or living with a partner? [facility] How often to you hav e a drink containing alcohol? Monthly or less [facility] How many standard dr inks containing alcohol do you have on a typical day? [address] [facility] How often do you hav e 6 or more drinks on 1 occasion? Less than monthly [facility] Do you feel stress - tense, restless, nervous, or anxious, or unable to sleep at night because your mind is troubled all the time - these days [OSQ] Not at all [facility] (I/We) worried wheth er (my/our) food would run out before (I/we) got money to buy more. Never true [facility] Start: 01-26-2019 Gender identity Identifies as female gender (finding) [facility] Start: 01-26-2019 Sexual orientation Heterosexual (fin ding) [facility] How often to you hav e a drink containing alcohol? Never [facility] Start: 02-23-2017 Sex Female (finding) [facility] Clinical Notes 02-14-2013 to 11-01-2024 Note Date & Type Note Facility 11-01-2024 Radiology Diagnostic study note [facility] Services [address] [place], [place] [id number] Brain/Head without Contrast MR#: [id number] Acct: [id number] Name: MICHAELLE MAYS Rep #: [id number] : 1980 F 44 From: Jatinder Mcgovern MD PCP: Dr. Wild Riggins MD Status: REG ER Study:Brain/Head without Contrast Date of Exa m: 11/01/24 Exam# [id number] Ordering Dr: Marcin Moore MD EXAM: CT [...] Riggins MD; Dr. Giulia Moore MD ~ Meat Specialist: Signed [facility] 11-01-2024 Radiology Diagnostic study note [facility] [address] [place] [address] Spine Cervical without Contras MR#: [id number] Acct: [id number] Name: MICHAELLE MAYS Rep #: [id number] : 1980 F 44 From: Jatinder Mcgovern MD PCP: Dr. Wild Riggins MD Status: REG ER Study:Spine Cervical without Contras Date of Exam: 11/01/24 Exam# [id number] Ordering Dr: Marcin Moore MD EXAM: CT [...] Riggins MD; Dr. Giulia Moore MD ~ Meat Specialist: Signed [facility] 10-02-2024 Evaluation + Plan note Extrac garcía from: Title:Clinical Document Author:DEMARCUS LARSEN Date:10/02/24 BOOMER ADMISSION HISTORY AN D PHYSICIAL CHIEF COMPLAINT: HISTORY OF PRESENT ILLNESS: REVIEW OF SYSTEMS: ACTIVE PROBLEMS: (1) Obese ([id number]) MEDICATIONS: Active Inpt Meds: None Active PRN Meds: None One Time Meds: None Active IV Meds: Lactated Ringers Infusion 1,000 mL (LR 1,000 mL) Start: 10/02/24 8:24:00 EDT, Rate: 50 mL/hr, 10/02/24 8:24:00 EDT ALLERGIES: (2) HAROLDO inhibitors Wellbutrin FAMILY HISTORY: SOCIAL HISTORY: PHYSICAL EXAM: VITALS: [id number]O8LzmgFj(kg) 10/02 08:4036.5--619061--18/61197.0 24 Hr Tmax: 36.5 at 10/02 08:40 [...] changes to the H&P unless noted below. [facility] 07-14-2025 Hospital Discharge instructions [...] water added (diluted fruit juice). Eat bland, oujx-wo-oavayb foods in small amounts as you are able. These foods include bananas, applesauce, rice, lean meats, toast, and crackers. Avoid fluids that contain a lot of sugar or caffeine, such as energy drinks, sports drinks, and soda. Avoid alcohol. Avoid spicy or fatty foods. General instructions Take ejic-jhs-mqlbjnh and prescription medicines only as told by your health care provider. Drink enough fluid to keep your urine pale yellow. Wash your hands often using soap and water. If soap and water are not available, use hand research associate professor. Make sure that all people in your [...] eating and drinking to prevent dehydration. Take idcn-gqh-dmpbmgn and prescription medicines only as told by [...] 03/08/2006 Document Revised: 06/30/2019 Document Reviewed: 08/16/2018 [employer] Patient Education 2020 [employer] 10/02/2024 09:47:42 Moderate Conscious Sedation, Adult, Care [...] until you are awake and alert. Take ilet-yti-apqzbgz and prescription medicines only as told by [...] 12/27/2013 Document Revised: 02/18/2018 Document Reviewed: 06/27/2016 [employer] Patient Education 2020 [employer] 10/02/2024 09:47:20 Colonoscopy, Adult, Care After Colonoscopy, [...] a slower pace than normal. ?Eat soft, jchb-gh-sjswrz foods. Take tuml-enw-otlmgpl or prescription medicines only as told by [...] 10/20/2004 Document Revised: 12/29/2017 Document Reviewed: 05/19/2016 [employer] Patient Education [facility] Follow Up Care 09/14/2024 07:12:48 With:DEMARCUS LARSEN MD Address: [facility] [address] [facility] [address] [place] [phone] When: only if needed Comments:NEXT COLONOSCOPY IN 10 YEARS [facility] 07-14-2025 Note Discharge Instructions Thank you for allowing [facility] to assist you with your healthcare needs. The following is importantdischarge information regarding your hospital visit. Your Care Team WILD RIGGINS MD What to do next Follow Up Appointments Follow Up with DEMARCUS LARSNE MD When:Only if needed Where:[facility] [address] [place] [phone] Additional Information: NEXT COLONOSCOPY IN 10 YEARS [...] water added (diluted fruit juice). Eat bland, fwei-sg-ddcdhf foods in small amounts as you are able. These foods include bananas, applesauce, rice, lean meats, toast, and crackers. Avoid fluids that contain a lot of sugar or caffeine, such as energy drinks, sports drinks, and soda. Avoid alcohol. Avoid spicy or fatty foods. General instructions Take lycl-fdb-pwsovjw and prescription medicines only as told by your health care provider. Drink enough fluid to keep your urine pale yellow. Wash your hands often using soap and water. If soap and water are not available, use hand research associate professor. Make sure that all people in your [...] eating and drinking to prevent dehydration. Take mtep-tuf-uqsplsj and prescription medicines only as told by [...] 03/08/2006 Document Revised: 06/30/2019 Document Reviewed: 08/16/2018 [employer] Patient Education 2020 [employer]. Moderate Conscious Sedation, Adult, Care After These [...] until you are awake and alert. Take itlf-gwf-isxvlyz and prescription medicines only as told by [...] 12/27/2013 Document Revised: 02/18/2018 Document Reviewed: 06/27/2016 [employer] Patient Education [employer] Colonoscopy, Adult, Care After This sheet gives [...] slower pace than normal. ? Eat soft, eztr-ad-qcgrwv foods. Take svqx-lne-znpeluk or prescription medicines only as told by [...] 10/20/2004 Document Revised: 12/29/2017 Document Reviewed: 05/19/2016 [employer] Patient Education 2020 [employer] Additional Information VACCINATE! IT SAVES LIVES! Members of the community who have not yet received the COVID-19 vaccine and would like to receive it can visit one of [facility] vaccine clinics. There are many vaccine clinic locations within the [facility]. For locations and available times, please visit [email or web address].[email or web address]/. It is important to note that some COVID mobile vaccine clinics are held outdoors and may be canceled in rainy or stormy conditions. To learn more about pediatric vaccinations (ages 5-11), we invite you to visit the [employer] webpage. https://[email or web address]/pages/[email or web address]-Haghb-Kahfhuiilpe-Gkwabjtytb-Jfklu-Bjy stions.htmlTo learn more about the COVID-19 vaccine, we invite you to visit the CDC website for a list of frequently asked questions.https://www.cdc.gov/coronavirus/2019-ncov/vaccines/faq.html [facility] Patient Portal Access Instructions: Stay connected with your healthcare team and access your personal medical information anytime with the [facility] Patient Portal. Please follow the directions below to create your [employer] account: 1.Access the email account you provided upon registration to the hospital/physician office.2.Look for an invitation email from [facility].3.Open the email and access the invitation link: AcceptInvitation to [employer] [facility].4.Fill in the required arroyo to create your account. To access your account, visit [employer]. Click the blue button labeled Access Patient [...] your information. You can also access the [facility] Patient Portal on the [facility] jennifer. Simply click on Patient Portal and then log into your account. If you would like to receive a full copy of your medical records, please contact the [facility] Medical Records Department by calling [phone], Wednesday through Wednesday between 8 a.m. and [...] Call your local pharmacy or go to http://Appforma/9I0Vp4h to find one close to you.3.Make use of household items: Use cat litter or old coffee grounds to dispose medications if other options arenot available. Mix your drugs with these household products, seal them in an airtight container andthrow it into the garbage. Call [facility]: [phone] to be sure your drugs can be [...] aware that I should contact my doctor. Patient/Statistical Programmer Signature: Date/Time: Relationship to Patient: Witness Name/Signature: Date/Time: [facility]07-14-2025 Note Date of Service 10/02/2024 Procedure Name Screening colonoscopy Consent Taken before procedure Indication Screening colonoscopy Location [facility] Pre-Procedure Exam Screening colonoscopy Procedural Sedation [...] DEMARCUS LARSEN MD on 10/02/2024 09:44 AM [facility]07-14-2025 Anesthesiology Consult note Patient: [...] within normal limits. Digitally Signed by AZAEL LONGCRUISE CONSULTANT on 10/02/2024 09:38 AM [facility]07-14-2025 Note BOOMER ADMISSION HISTORY AND PHYSICIAL CHIEF COMPLAINT: HISTORY OF PRESENT ILLNESS: REVIEW OF SYSTEMS: ACTIVE PROBLEMS: (1) Obese ([id number]) MEDICATIONS: Active Inpt Meds: None Active PRN Meds: None One Time Meds: None Active IV Meds: Lactated Ringers Infusion 1,000 mL (LR 1,000 mL) Start: 10/02/24 8:24:00 EDT, Rate: 50 mL/hr, 10/02/24 8:24:00 EDT ALLERGIES: (2) HAROLDO inhibitors Wellbutrin FAMILY HISTORY: SOCIAL HISTORY: PHYSICAL EXAM: VITALS: FkqzjuRhhcIRWnzgtOMEuK5YSE8IwkxBv(kg) 10/02 08:4036.5--049410--35/25368.0 24 Hr Tmax: 36.5 at 10/02 08:40 [...] DEMARCUS LARSEN MD on 10/02/2024 09:25 AM [facility]07-14-2025 Anesthesiology Consult note Patient: MICHAELLE MAYS Age: 44 years Sex: Female : 1980 Associated Diagnoses: None Author: AZAEL LONG APRN-CRUISE CONSULTANT Preoperative Information Time of last food or [...] Cancer Grandparent Stroke Grandparent Procedure history: Cholecystectomy ([id number]). Comments: 10/02/2024 8:34 JIMT - Ramírez Mosley [...] Signs (last 24 hrs) Last Charted Temp Kmsdwuqj34.5 DegC (OCT 02 08:40) STE024 mmHg (OCT 02 08:40) DBP75 mmHg (OCT 02 08:40) Measurements from flowsheet : Measurements 10/02/2024 8:40 EDT Height 165.1 cm Height in inches 65 inch(es) Admission Weight 116 kg Weight Lbs 255.2 lb [place] Body Weight 57.00 kg Admission Body Mass [...] Attendee SN - CAt - Role Performed Disassembler Product SN - CAt - Role Performed Procedure Nurse SN - CAt - Role Performed CRUISE CONSULTANT SN - CAt - Role Performed Primary [...] Weight 116 kg Weight Lbs 255.2 lb [place] Body Weight 57.00 kg Admission Body Mass [...] Intake 10/01/2024 9:00 . Assessment and Plan [place] [employer] Anesthesiologists (ASA) physical status classification: Class III. Anesthetic Preoperative Plan Premedication: intravenous. Anesthetic technique: MAC. Induction: intravenously. Maintenance airway: Mask. Risks discussed: nausea, vomiting, headache, sore throat, dental injury, hypotension, allergic reaction, serious complications. Informed consent: signed by patient. Digitally Signed by AZAEL LONG on 10/02/2024 09:12 AM [facility]03-26-2025 Evaluation note* Diagnosis Onset Date Resolution Status Admit Date Cervical strain acute May 11:20am Thoracic myofascial strain acute June 14, 2024 11:20am Fatigue noneactive June 27 6:11am [facility] [place] Work Phone: [phone] Instructions* Patient Instructions* Jacinta Green MD - [...] reactions. - Chart updated. documented in this encounterSt. [facility]12-[facility]24 History of Present illness Narrative* Jacinta Green [...] told she had to get it at [place] and was notable to do it. No [...] intermittently. unsure if exacerbates symptoms. Works at [employer] NO FMH of angioedema. 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 Jacinta Green MD Allergy and Immunology [facility] I spent a total of >40 minutes on the date of the service which included preparing to see the patient, cuqf-og-cuxl patient care, completing clinical documentation, obtaining and/or reviewing separately obtained history, performing a medically appropriate examination, counseling and educating the patient/family/caregiver, ordering medications, tests, or procedures, and independently interpreting results (not separately reported). documented in this encounterSt. Vincent Hospital12-12-2024 NoteHNO ID: [id number] Author: JACINTA GREEN MD Service: ? Author [...] in November and went to ED in [place]. Decreased dose of doxepin to 25 mg [...] told she had to get it at [place] and was not able to do it. [...] coughing, and wheezing sx. (more content not included)...[facility]11-07-2024 NoteHNO ID: [id number] Author: ?, ?, ? Service: ? Author Type: ? Type: Progress Notes Filed: 01/30/2024 16:27 Note Text: Patient has been scheduledSam[facility]itan Hospital11-07-2024 History of Present illness Narrative* Cele Alanis - 01/27/2024 4:04 PM EST Patient has been scheduled * Jacinta Green MD - 01/27/2024 3:30 PM EST Images from the original note were not included. Allergy and Immunology This is a virtual visit using Pikanoteom Video Visit. It required patient- provider interaction for the medical decision making as documented below. I have communicated my name and active licensure. The patient's identity and physical location wereverified at the time of this visit. Either the patient or their legal sales donor recruitment representative has been informed of the risks [...] in November and went to ED in [place]. Decreased dose of doxepin to 25 mg [...] told she had to get it at [place] and was notable to do it. No [...] intermittently. unsure if exacerbates symptoms. Works at [employer] NO FMH of angioedema. No liver or [...] Pets in the home: 2 cats Scott: Yyez-dr-khgt carpeting Air conditioning: No air conditioning Heating: Forced hot air Basement: Dry basement Dust mite controls: Dust mite controls are not in place. 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 Diagnostic Testing: Labs Latest Ref [facility] 02/08/2023 WBC 3.70 - 11.00 k/uL 9.60 [...] Abs Lymph 1.00 - 4.00 k/uL 2.92 [place]% % 6.5 Abs [place] <0.87 k/uL 0.62 Eosin% % 0.9 Abs [...] to testing and evaluation. Message sent to plant operations worker. > Continue to avoid penicillins at this time. Discussed medication dosage, usage, side effects, and goals of treatment in detail. Follow-up: Return for PCN evaluation.. Patient advised to call or return sooner should current symptoms worsen or fail to improve or if new symptoms or problems arise. Jacinta Green MD Allergy and Immunology [facility] Medical Decision Making: Problems: Moderate: 2+ stable chronic illnesses Data: Unique test result(s) reviewed: 2 Unique test(s) ordered: 1 Risk: Moderate: Drug management Medical Decision Making Level: 4 - Moderate documented in this encounterSt. Vincent Hospital11-07-2024 NoteHNO ID: [id number] Author: JACINTA GREEN MD Service: ? Author Type: Physician Type: Progress Notes Filed: 01/30/2024 16:27 Note Text: Allergy and Immunology This is a virtual visit using Pikanoteom Video Visit. It required patient-provider interaction for the medical decision making as documented below. I have communicated my name and active licensure. The patient's identity and physical location were verified at the time of this visit. Either the patient or their legal sales donor recruitment representative has been informed of the risks [...] in November and went to ED in [place]. Decreased dose of doxepin to 25 mg [...] told she had to get it at [place] and was not able to do it. [...] today for follow up. (more content not included)...[facility]11-05-[facility] Telephone encounter Note* Telephone Encounter - Cele Alanis - 01/25/2024 12:07 PM EST Patient has been scheduled with Dr Green on 01/[address]11-05-[facility]24 Miscellaneous Notes* Telephone Encounter - Cele Alanis [...] in person OV: 04/26/19 documented in this encounterSt. [facility] Hospital11-05-2024 Telephone encounter Note * Telephone Encounter - Cele Alanis - 01/25/2024 9:36 AM EST Left VM for patient to return call to schedule with another provider as Dr Andreas armas VV is not until 04/14 and her 1st in person is not until May [facility]11-05-[facility]24 Telephone encounter Note* Telephone Encounter - Luisana Dewitt MA - 01/25/2024 8:04 AM EST [place]: 02/05/23 Last in person OV: 04/26/19 [facility]11-04-[facility] Telephone encounter Note* Telephone Encounter - Luisana Dewitt MA - 01/24/2024 2:57 PM EST [place]: 02/05/23 Advised patient to schedule yearly appt as nothing is scheduled as of now. [facility]-04[facility] Miscellaneous Notes* Telephone Encounter - Luisana Dewitt MA - 01/24/2024 2:57 PM EST [place]: 02/05/23 Advised patient to schedule yearly appt as nothing is scheduled as of now. documented in this encounterSt. Vincent Hospital10-25-2024 NoteHNO ID: [id number] Author: MERLYN MEDEL PA-C Service: ? Author Type: Physician Street Sprinkler Type: Progress Notes Filed: 01/14/2024 12:06 Note Text: This note was created using EngagementHealthriter. 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 Patient agreeable. [facility] History of Present illness Narrative* Merlyn Medel PA-C - 01/14/2024 12:04 PM EDT This note was created using EngagementHealthriter. 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 Merlyn Medel PA-C\ documented in this encounterSt. Vincent Hospital10-10-2024 NoteHNO ID: [id number] Author: ESTELITA RIVERA PA Service: ? Author Type: Physician Street Sprinkler Type: Progress Notes Filed: 12/30/2023 11:29 Note Text: This note was created using EngagementHealthriter. 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 Estelita Rivera [facility]10-10-2024 History of Present illness Narrative* Estelita Rivera PA - 12/30/2023 11:24 AM EDT This note was created using EngagementHealthriter. 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 SHIN George documented in this encounterSt. [facility] Hospital09-24-2024 Telephone encounter Note * Telephone Encounter - Selam Ordonez LPN - 12/14/2023 10:27 AM EDT Patient following up with allergy regarding. Closing encounter. Selam [facility]donez LPN [facility]-24-[facility]24 Miscellaneous Notes* Telephone Encounter - Selam Ordonez [...] appointment. Selam Ordonez LPN documented in this encounterSt. Vincent Hospital09-16-2024 Telephone encounter Note * Telephone Encounter - Selam Ordonez LPN - 12/06/2023 4:12 PM EDT Patient seen in ED 12/02 for allergic reaction, Dr. Mcdaniel recommends 1 week ER follow up. Patient telephoned, message left to call back to schedule appointment. Selam Ordonez LPN [facility]-16-2024 Note* Letter - Coordinator, Mammography - 10/05/2023 8:56 AM EDT October 05, 2023 PID: [id number] Michaelle Mays [address] [place] [address] Dear Ms. Mays, We are pleased to [...] report will be [facility] as part of your permanent medical record and are available for your continuing care. Thank you for allowing us to help in meeting your health care needs. Sincerely, Dr. Zaragoza Interpreting Radiologist [facility] (Normal over 40) [facility]-16-[facility] Miscellaneous Notes* Letter - Coordinator, Mammography - 10/05/2023 8:56 AM EDT October 05, 2023 PID: [id number] Michaelle Mays [address] [place] [address] Dear Ms. Mays, We are pleased to [...] report will be [facility] as part of your permanent medical record and are available for your continuing care. Thank you for allowing us to help in meeting your health care needs. Sincerely, Dr. Zaragoza Interpreting Radiologist [facility] (Normal over 40) documented in this encounterSt. Vincent Hospital07-15-2024 History of Present illness Narrative* Emilia Hayden [...] PATIENT PRESENTS WITH AN IMPLANTABLE OR ATTACHED JIG HAND: No RADIOLOGY DEPARTMENT: Mammography PERIPHERAL IV DATA: Not applicable SIGNED BY: Ruben Toribio October 04, 2023 2:31 PM documented in this encounterSt. Vincent Hospital07-15-2024 NoteHNO ID: [id number] Author: EMILIA HAYDEN Mammo Tech Service: ? Author Type: Salon Customer Experience Specialist Type: Progress Notes Filed: 10/04/2023 14:49 Note [...] PATIENT PRESENTS WITH AN IMPLANTABLE OR ATTACHED JIG HAND: No RADIOLOGY DEPARTMENT: Mammography PERIPHERAL IV DATA: Not applicable SIGNED BY: Emilia Hayden [employer] October 04, 2023 2:31 [facility]07-01-2024 NoteHNO ID: [id number] Author: ESTELITA RIVERA PA Service: ? Author Type: Physician Street Sprinkler Type: Progress Notes Filed: 09/20/2023 12:53 Note Text: This note was created using Daily Secret. Subjective Michaelle Mays is a 43 year [...] detail warranting prompt ER evaluation. Estelita Rivera [facility]07-01-2024 History of Present illness Narrative* Estelita Rivera, PA - 09/20/2023 12:50 PM EDT This note was created using EngagementHealthriter. Subjective Michaelle Mays is a 43 year [...] ER evaluation. SHIN George documented in this encounterSt. Vincent Hospital06-04-2024 Telephone encounter Note * Telephone Encounter - Annemarie Dick PA-C - 08/24/2023 9:09 AM EDT Patient has not been seen in our office in over a year, with her last refill request I informed herthat she really may need to make a follow-up with orthopedics or obtain additional refills from herPCP, see Epic. [facility]-04[facility] Miscellaneous Notes* Telephone Encounter - Annemarie Dick PA-C - 08/24/2023 9:09 AM EDT Patient has not been seen in our office in over a year, with her last refill request I informed herthat she really may need to make a follow-up with orthopedics or obtain additional refills from herPCP, see Epic. documented in this encounterSt. Vincent Hospital05-29-2024 NoteHNO ID: [id number] Author: JAZZ WRIGHT APRN.ABSORBER OPERATOR Service: ? Author Type: Nurse Practitioner Type: [...] landed outstretched onto some boxes. Seen in [facility] on 08/04/2023 and had xray [...] No radiographic evidence of acute osseous injury. 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 Patient advised if symptoms do not improve or if symptoms worsen sooner, to contact their primary care physician. Potential red flag symptoms discussed with the patient. Reviewed appropriate action plan to take if red flag symptoms occur. Patien (more content not included)...[facility]05-29-[facility] History of Present illness Narrative* Jazz Wright [...] No radiographic evidence of acute osseous injury. 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 [...] Level: 3 - Low documented in this encounterSt. Vincent Hospital05-20-2024 Telephone encounter Note * Telephone Encounter - Essence Chaves - 08/09/2023 9:21 AM EDT GALLO read. Closing encounter [facility]-20-[facility] Miscellaneous Notes* Telephone Encounter - Essence Chaves [...] the department mayassist her. documented in this encounterSt. Vincent Hospital05-15-2024 Telephone encounter Note * Telephone Encounter - [...] the pool so the department mayassist her. [facility]-15-[facility] History of Present illness Narrative* Jerzy Clay [...] PATIENT PRESENTS WITH AN IMPLANTABLE OR ATTACHED JIG HAND: No RADIOLOGY DEPARTMENT: General X-ray: Exam(s) Completed: Upper Extremity X- Ray(s): Shoulder, AP / TRUE AP / AXILLARY right PERIPHERAL IV DATA: Not applicable SIGNED BY: ROBEL Neal) August 04, 2023 9:29 AM documented in this encounterSt. Vincent Hospital05-15-2024 NoteHNO ID: [id number] Author: JERZY CLAY RT(R) Service: Radiology Author [...] PATIENT PRESENTS WITH AN IMPLANTABLE OR ATTACHED JIG HAND: No RADIOLOGY DEPARTMENT: General X-ray: Exam(s) Completed: Upper Extremity X-Ray(s): Shoulder, AP / TRUE AP / AXILLARY right PERIPHERAL IV DATA: Not applicable SIGNED BY: RT Val(R) August 04, 2023 9:29 [facility]05-15-2024 NoteHNO ID: [id number] Author: ESTELITA RIVERA PA Service: ? Author Type: Physician Street Sprinkler Type: Progress Notes Filed: 08/04/2023 09:53 Note Text: This note was created using Daily Secret. 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 Normal ROM elbow and wrist. Normal call center director strength. Normal sensation right upper extremity. Pulses [...] detail warranting prompt ER evaluation. Estelita Rivera [facility]05-15-2024 History of Present illness Narrative* Estelita Rivera, PA - 08/04/2023 9:15 AM EDT This note was created using Siteheartter. 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 Normal ROM elbow and wrist. Normal call center director strength. Normal sensationright upper extremity. Pulses 2+. [...] ER evaluation. SHIN George documented in this encounterSt. Vincent Hospital05-07-2024 Telephone encounter Note * Telephone Encounter - Annemarie Dick PA-C - 07/27/2023 2:55 PM EDT Patient has not been seen in our office in over a year, I did provide her with 1 more refill. She will either need to schedule a follow-up with us and/or discuss with her PCP additional refills of this medication. [facility]-07-2024 Miscellaneous Notes* Telephone Encounter - Annemarie Dick PA-C - 07/27/2023 2:55 PM EDT Patient has not been seen in our office in over a year, I did provide her with 1 more refill. She will either need to schedule a follow-up with us and/or discuss with her PCP additional refills of this medication. documented in this encounterSt. Vincent Hospital05-07-2024 NoteHNO ID: [id number] Author: EULALIA SKINNER APRN.ABSORBER OPERATOR Service: ? Author Type: Nurse Practitioner Type: [...] history is provided by the patient. No english language learner tutor was used. 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 [facility]07[facility] History of Present illness Narrative* Skinner EulaliaNEDRA altamirano.ABSORBER OPERATOR - 07/27/2023 12:51 PM EDT This note was created using EngagementHealthriter. Subjective Michaelle Mays is a 43 year [...] history is provided by the patient. No english language learner tutor was used. 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 [facility] Hospital04-21-2024 NoteHNO ID: [id number] Author: EULALIA SKINNER APRN.CNP Service: ? Author [...] history is provided by the patient. No english language learner tutor was used. 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 Subjective Michaelle Mays is a 43 year [...] history is provided by the patient. No english language learner tutor was used. 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 Johns Morbid obesity (HCC) Plantar fasciitis [...] in August Discussed red flags Eulalia Skinner APRN.ABSORBER OPERATOR documented in this encounterSt. Vincent Hospital04-10-2024 NoteHNO ID: [id number] Author: ESTELITA RIVERA PA Service: ? Author Type: Physician Street Sprinkler Type: Progress Notes Filed: 06/30/2023 07:33 Note Text: This note was created using EngagementHealthriter. 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 Estelita Rivera [facility]04-10-2024 History of Present illness Narrative* Estelita Rivera PA - 06/30/2023 7:31 AM EDT This note was created using EngagementHealthriter. 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 SHIN George documented in this encounterSt. [facility] Hospital04-10-2024 Instructions* Patient Instructions* Estelita Rivera PA - 06/30/2023 7:29 AM EDT BRAT DIET (may eat any of the following as tolerated) Bananas Applesauce [place] Saltine Crackers Animal Crackers Pretzels Oatmeal Unsweetened Dry Cereal (Rice Krispies, Cheerios) Plain Baked or Boiled Potato Plain White Rice Plain Noodles All clear liquid listed below CLEAR LIQUID DIET hour) Broth Jello Popsicles Pedialyte Gatorade NO Milk NO Dairy Products documented in this encounterSt. Vincent Hospital03-04-2024 NoteHNO ID: [id number] Author: JAZZ WRIGHT APRN.ABSORBER OPERATOR Service: ? 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 Johns Morbid obesity (HCC) Plantar fasciitis [...] symptoms - CONSULT TO DERMATOLOGY Jazz BaconlogNEDRA rangel.ABSORBER OPERATOR Prescription instructions reviewed with patient as applicable. [...] Level: 3 - Low documented in this encounterSt. Vincent Hospital03-03-2024 NoteHNO ID: [id number] Author: MERLYN MEDEL PA-C Service: ? 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 SHIN [facility]03-03-20[facility] History of Present illness Narrative* Merlyn Medel PA-C - 05/23/2023 8:21 AM EST Images from the original note were not included. This note was created using Siteheartter. 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 Merlyn Medel PA-C documented in this encounterSt. Vincent Hospital02-29-2024 NoteHNO ID: [id number] Author: KOTA LACY APRN.ABSORBER OPERATOR Service: ? 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 Vincent Hospital02-22-2024 NoteHNO ID: [id number] Author: KOTA VYAS MD Service: ? 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 [facility] Hospital02-12-2024 Miscellaneous Notes* Telephone Encounter - Tahira Sy [...] patient. Tahira Sy, RN documented in this encounterSt. Vincent Hospital01-08-2024 NoteHNO ID: [id number] Author: MAXIMUS WYATT APRN.ABSORBER OPERATOR Service: ? 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 Maximus Wyatt [facility]24 NoteHNO ID: [id number] Author: Esme Feliz APRN.ALMAS Service: ? Author Type: Nurse Practitioner Type: Progress Notes Filed: 03/23/2023 7:37 AM Note Text: Subjective The history is provided by the patient. No english language learner tutor was used. 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 [...] in 12-24 hours with results, available on [employer] Considering paxlovid if positive. Will need rx [...] detail warranting prompt ER evaluation. Esme Feliz APRN.[facility]12-21-2023 Miscellaneous Notes* Addendum Note - Cheng Mcdaniel MD - 03/11/2023 11:38 AM ESTAddended by: CHENG MCDANIEL on: 03/11/2023 11:38 AM Modules accepted: Orders documented in this encounterSt. 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 [facility] Hospital09-13-2023 History of Present illness Narrative* Micah Pete [...] provided. Micah Pete MD documented in this encounterSt. [facility] Hospital09-13-2023 Miscellaneous Notes* Telephone Encounter - Patti Aguilar RN - 12/02/2022 9:36 AM EDT [place]-02/02/22 Annual appointment scheduled 02/05/23 Patient phones requesting refills as follows: Requested Prescriptions Pending Prescriptions Disp Refills montelukast (SINGULAIR) 10 mg tablet 90 tablet 0 Sig: Take 1 tablet by mouth daily at bedtime. Please review and advise. Patti Aguilar RN documented in this encounterSt. [facility] Hospital09-11-2023 Miscellaneous Notes* Telephone Encounter - Luisana Dewitt - 11/30/2022 11:12 AM EDT [place]:02/02/22 Next OV: 02/05/23 Patient phones requesting refills as follows: Requested Prescriptions Pending Prescriptions Disp Refills doxepin capsule 50 mg 30 capsule 1 Sig: Take 1 capsule by mouth daily at bedtime. Please review and advise. Luisana Dewitt documented in this encounterSt. 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 [facility] Hospital08-17-2023 Miscellaneous Notes* Telephone Encounter - Luisana Dewitt - 11/05/2022 9:54 AM EDT [place]: 02/02/22 Pharmacy phones requesting refills as follows: Requested Prescriptions Pending Prescriptions Disp Refills montelukast (SINGULAIR) 10 mg tablet [Pharmacy Med Name: MONTELUKAST SOD 10 MG TABLET] 90 tablet 0 Sig: TAKE 1 TABLET BY MOUTH EVERYDAY AT BEDTIME Please review and advise. Luisana Dewitt documented in this encounterSt. [facility] Hospital07-26-2023 History of Present illness Narrative* Treva Reynolds [...] basis. Treva Reynolds MD documented in this encounterSt. [facility] Hospital07-14-2023 History of Present illness Narrative* Alondra Swartz [...] 02, 2022 2:20 PM documented in this encounterSt. 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 documented in this encounterSt. 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 Johns Morbid obesity (HCC) Plantar fasciitis [...] protected - plan as above Jazz Podlogclaire, NEDRA.ABSORBER OPERATOR Prescription instructions reviewed with patient as applicable. [...] which included preparing to see the patient, [id number] patient care, completing clinical documentation, obtaining and/or reviewing separately obtained history, performing a medically appropriate examination, and counseling and educating the patient/family/caregiver. documented in this encounterSt. [facility] Hospital05-08-2023 Instructions* Patient Instructions* Jazz Wright APRN.CNP - 07/27/2022 8:08 AM EDT Follow-up Wednesday documented in this encounterSt. 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 documented in this encounterSt. [facility] Hospital05-03-2023 Miscellaneous Notes* Telephone Encounter - Eulalia Skinner APRN.CNP - 07/22/2022 4:15 PM EDT Speak with patient. In review of Epic, patient has taken Keflex in 2019. Reached out and discussed with patient. Speak with [facility], and they are aware and will now fill for patient. * Telephone Encounter - Sunshine Jewell RN - 07/22/2022 4:07 PM EDT Patient calls to report that [facility] won't dispense the cephalexin as prescribed d/t allergy toPCN. Patient reports that allergy is hives and all over body swelling. Patient asking for another antibiotic to be sent to [facility]. Please call patient back at [phone] once addressed. Sunshine Jewell RN documented in this encounterSt. Vincent Hospital04-21-2023 Miscellaneous Notes* Telephone Encounter - Nina Austin [...] asking if letter can be faxed to [phone] Att: Candie. Please advise. documented in this encounterSt. Vincent Hospital02-21-2023 History of Present illness Narrative* Ingrid Ponce LPN - 2022 9:53 AM EST Patient presents for EKG per Dr Johns. Denies any problems at this time. Tolerated procedure well. Ingrid Ponce LPN documented in this encounterSt. Vincent Hospital02-15-2023 History of Present illness Narrative* Micah Jo MD - 05/06/2022 9:22 AM EST Michaelle Mays is a 41 year old who presents for her annual gynecologic exam. 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 [facility] Hospital02-02-2023 History of Present illness Narrative* Jerzy Clay [...] 23, 2022 9:07 AM documented in this encounterSt. [facility] Hospital12-16-2022 History of Present illness Narrative* Eulalia Skinner APRN.ABSORBER OPERATOR - 03/06/2022 1:29 PM EST This note [...] history is provided by the patient. No english language learner tutor was used. 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 [facility] Hospital11-14-2022 History of Present illness Narrative* Cele Dillard Pss - 02/02/2022 10:36 AM EST LVM for patient to return call to schedule ANNUAL FOLLOW UP FOR 01/2023 * Veronique Johns MD - 02/02/2022 8:58 AM EST VIRTUAL VISIT PROGRESS NOTE This is a virtual visit using Teneros video visit. It required patient-provider interaction for themedical decision making as documented below. HPI February 02, 2022 Michaelle Sincere Mays presents for VIRTUAL VISIT follow up. no hives since last seen. 1 or 2 hives at weather change Taking doxepin and singulair. Tried to get EKG- they had scheduled it but they told she had to get it at [place] and was notable to do it. No [...] intermittently. unsure if exacerbates symptoms. Works at [employer] NO FMH of angioedema. 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 Veronique Johns MD documented in this encounterSt. [facility] Hospital09-13-2022 History of Present illness Narrative* Merlyn Medel PA-C - 12/02/2021 3:10 PM EDT This note was created using EngagementHealthriter. 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 Merlyn Medel PA-C documented in this encounterSt. Vincent Hospital07-11-2022 Miscellaneous Notes* Letter - Mammography Coordinator - 09/29/2021 10:37 AM EDT September 29, 2021 PID: [id number] Michaelle Mays [address] [place] [address] Dear Ms. Mays, We are pleased to [...] report will [facility] as part of your permanent medical record and are available for your continuing care. Thank you for allowing us to help in meeting your health care needs. Sincerely, Dr. Zaragoza Interpreting Radiologist [facility] (Normal over 40) documented in this encounterSt. Vincent Hospital07-11-2022 History of Present illness Narrative* Alondra Swartz [...] 29, 2021 7:29 AM documented in this encounterSt. Vincent Hospital06-13-2022 Miscellaneous Notes* Telephone Encounter - Aye Luis LPN - 09/01/2021 11:37 AM EDT There is a current RX on file with this pharmacy Closed encopunter request documented in this encounterSt. Vincent Hospital06-07-2022 Instructions* Patient Instructions* Esme Feliz APRN.ABSORBER OPERATOR - 08/26/2021 12:07 PM EDT How is [...] or dark tarry stools. documented in this encounterSt. Vincent Hospital06-07-2022 History of Present illness Narrative* Esme Feliz APRN.CNP - 08/26/2021 12:03 PM EDT Subjective The history is provided by the patient. No english language learner tutor was used. 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 Esme Feliz APRN.ALMAS documented in this encounterSt. Vincent Hospital05-20-2022 Instructions* Patient Instructions* Veronique Johns MD - [...] help prevent mucus build-up. documented in this encounterSt. Vincent Hospital05-20-2022 Nurse Note* Patti Agiular RN - 08/08/2021 3:30 PM EDT Attempted to contact patient on 08/08/2021 Result: left message on patient's voicemail reminding of virtual visit appointment documented in this encounterSt. Vincent Hospital05-20-2022 History of Present illness Narrative* Veronique Johns MD - 08/08/2021 11:59 AM EDT VIRTUAL VISIT PROGRESS NOTE This is a virtual visit using Teneros video visit. It required patient-provider interaction for [...] intermittently. unsure if exacerbates symptoms. Works at [employer] NO FMH of angioedema. 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 Veronique Johns MD documented in this encounterSt. Vincent Hospital05-02-2022 Miscellaneous Notes* Telephone Encounter - Luisana Dewitt - 07/21/2021 9:27 AM EDT [place]: 04/26/20 Next OV: 08/08/21 Pharmacy phones requesting refills as follows: Pending Prescriptions Disp Refills MONTELUKAST 10 MG TABLET 30 tablet 0 Sig: TAKE 1 TABLET BY MOUTH EVERYDAY AT BEDTIME SAVANA: Yes Please review and advise. Luisana Dewitt documented in this encounterSt. Vincent Hospital02-03-2021 History of Present illness Narrative* Anastacio Richard [...] 24, 2020 1:32 PM documented in this encounterSt. Vincent Hospital12-17-2020 History of Present illness Narrative* Jerzy ClayRt), [...] 07, 2020 9:29 AM documented in this encounterSt. Vincent Hospital11-26-2013 History of Past illness Narrative* Problem Noted Date Resolved Date Adult BMI 30+ 02/14/2013 07/02/2017 documented as of this encounter (statuses as of 07/21/2021) [address]26-2013 History of Past illness Narrative* Problem Noted Date Resolved Date Adult BMI 30+ 02/14/2013 07/02/2017 documented as of this encounter (statuses as of 08/08/2021) [address]26[address]2013 History of Past illness Narrative* Problem Noted Date Resolved Date Adult BMI 30+ 02/14/2013 07/02/2017 documented as of this encounter (statuses as of 08/26/2021) [address]2013 History of Past illness Narrative* Problem Noted Date Resolved Date Adult BMI 30+ 02/14/2013 07/02/2017 documented as of this encounter (statuses as of 09/01/2021) [address]26[address]2013 History of Past illness Narrative* Problem Noted Date Resolved Date Adult BMI 30+ 02/14/2013 07/02/2017 documented as of this encounter (statuses as of 09/09/2021) [place] [address]26-2013 History of Past illness Narrative* Problem Noted Date Resolved Date Adult BMI 30+ 02/14/2013 07/02/2017 documented as of this encounter (statuses as of 09/30/2021) [place] [address]26-2013 History of Past illness Narrative* Problem Noted Date Resolved Date Adult BMI 30+ 02/14/2013 07/02/2017 documented as of this encounter (statuses as of 10/01/2021) [address]26[address]2013 History of Past illness Narrative* Problem Noted Date Resolved Date Adult BMI 30+ 02/14/2013 07/02/2017 documented as of this encounter (statuses as of 12/02/2021) [place] [address]26[address]2013 History of Past illness Narrative* Problem Noted Date Resolved Date Adult BMI 30+ 02/14/2013 07/02/2017 documented as of this encounter (statuses as of 02/02/2022) [place] [address]2013 History of Past illness Narrative* Problem Noted Date Resolved Date Adult BMI 30+ 02/14/2013 07/02/2017 documented as of this encounter (statuses as of 03/04/2022) [place] [address] History of Past illness Narrative* Problem Noted Date Resolved Date Adult BMI 30+ 02/14/2013 07/02/2017 documented as of this encounter (statuses as of 03/06/2022) [address]26[address]2013 History of Past illness Narrative* Problem Noted Date Resolved Date Adult BMI 30+ 02/14/2013 07/02/2017 documented as of this encounter (statuses as of 04/15/2022) [address]26[address]2013 History of Past illness Narrative* Problem Noted Date Resolved Date Adult BMI 30+ 02/14/2013 07/02/2017 documented as of this encounter (statuses as of 04/20/2022) [address]26[address]2013 History of Past illness Narrative* Problem Noted Date Resolved Date Adult BMI 30+ 02/14/2013 07/02/2017 documented as of this encounter (statuses as of 05/06/2022) [address]26[address]2013 History of Past illness Narrative* Problem Noted Date Resolved Date Adult BMI 30+ 02/14/2013 07/02/2017 documented as of this encounter (statuses as of 05/07/2022) [place] [address] History of Past illness Narrative* Problem Noted Date Resolved Date Adult BMI 30+ 02/14/2013 07/02/2017 documented as of this encounter (statuses as of 2022) [place] [address] History of Past illness Narrative* Problem Noted Date Resolved Date Adult BMI 30+ 02/14/2013 07/02/2017 documented as of this encounter (statuses as of 05/14/2022) [address]26[address]2013 History of Past illness Narrative* Problem Noted Date Resolved Date Adult BMI 30+ 02/14/2013 07/02/2017 documented as of this encounter (statuses as of 07/10/2022) [place] [address] History of Past illness Narrative* Problem Noted Date Resolved Date Adult BMI 30+ 02/14/2013 07/02/2017 documented as of this encounter (statuses as of 07/23/2022) [address]26[address]2013 History of Past illness Narrative* Problem Noted Date Resolved Date Adult BMI 30+ 02/14/2013 07/02/2017 documented as of this encounter (statuses as of 07/27/2022) [address]2013 History of Past illness Narrative* Problem Noted Date Resolved Date Adult BMI 30+ 02/14/2013 07/02/2017 documented as of this encounter (statuses as of 07/29/2022) [address]26[address]2013 History of Past illness Narrative* Problem Noted Date Resolved Date Adult BMI 30+ 02/14/2013 07/02/2017 documented as of this encounter (statuses as of 08/24/2022) [address]26[address]2013 History of Past illness Narrative* Problem Noted Date Resolved Date Adult BMI 30+ 02/14/2013 07/02/2017 documented as of this encounter (statuses as of 09/08/2022) [address]26[address]2013 History of Past illness Narrative* Problem Noted Date Diagnosed Date Resolved Date Adult BMI 30+ 02/14/2013 07/02/2017 documented as of this encounter (statuses as of 10/15/2022) [address]26[address]2013 History of Past illness Narrative* Problem Noted Date Diagnosed Date Resolved Date Adult BMI 30+ 02/14/2013 07/02/2017 documented as of this encounter (statuses as of 11/05/2022) [place] [address]26-2013 History of Past illness Narrative* Problem Noted Date Diagnosed Date Resolved Date Adult BMI 30+ 02/14/2013 07/02/2017 documented as of this encounter (statuses as of 11/16/2022) [place] [address] History of Past illness Narrative* Problem Noted Date Diagnosed Date Resolved Date Adult BMI 30+ 02/14/2013 07/02/2017 documented as of this encounter (statuses as of 11/30/2022) [place] [address] History of Past illness Narrative* Problem Noted Date Diagnosed Date Resolved Date Adult BMI 30+ 02/14/2013 07/02/2017 documented as of this encounter (statuses as of 11/30/2022) [address]26[address]2013 History of Past illness Narrative* Problem Noted Date Diagnosed Date Resolved Date Adult BMI 30+ 02/14/2013 07/02/2017 documented as of this encounter (statuses as of 12/02/2022) [place] [address] History of Past illness Narrative* Problem Noted Date Diagnosed Date Resolved Date Adult BMI 30+ 02/14/2013 07/02/2017 documented as of this encounter (statuses as of 12/03/2022) [place] [address] History of Past illness Narrative* Problem Noted Date Diagnosed Date Resolved Date Adult BMI 30+ 02/14/2013 07/02/2017 documented as of this encounter (statuses as of 01/24/2023) [address]26[address]2013 History of Past illness Narrative* Problem Noted Date Diagnosed Date Resolved Date Adult BMI 30+ 02/14/2013 07/02/2017 documented as of this encounter (statuses as of 01/24/2023) [place] [address] History of Past illness Narrative* Problem Noted Date Diagnosed Date Resolved Date Adult BMI 30+ 02/14/2013 07/02/2017 documented as of this encounter (statuses as of 02/23/2023) [address]26[address]2013 History of Past illness Narrative* Problem Noted Date Diagnosed Date Resolved Date Adult BMI 30+ 02/14/2013 07/02/2017 documented as of this encounter (statuses as of 03/12/2023) [address]26[address]2013 History of Past illness Narrative* Problem Noted Date Diagnosed Date Resolved Date Adult BMI 30+ 02/14/2013 07/02/2017 documented as of this encounter (statuses as of 05/03/2023) [place] [address] History of Past illness Narrative* Problem Noted Date Diagnosed Date Resolved Date Adult BMI 30+ 02/14/2013 07/02/2017 documented as of this encounter (statuses as of 05/13/2023) [place] [address] History of Past illness Narrative* Problem Noted Date Diagnosed Date Resolved Date Adult BMI 30+ 02/14/2013 07/02/2017 documented as of this encounter (statuses as of 05/20/2023) [place] [address] History of Past illness Narrative* Problem Noted Date Diagnosed Date Resolved Date Adult BMI 30+ 02/14/2013 07/02/2017 documented as of this encounter (statuses as of 05/23/2023) [place] [address] History of Past illness Narrative* Problem Noted Date Diagnosed Date Resolved Date Adult BMI 30+ 02/14/2013 07/02/2017 documented as of this encounter (statuses as of 05/24/2023) [place] [address] History of Past illness Narrative* Problem Noted Date Diagnosed Date Resolved Date Adult BMI 30+ 02/14/2013 07/02/2017 documented as of this encounter (statuses as of 06/30/2023) [place] [address] History of Past illness Narrative* Problem Noted Date Diagnosed Date Resolved Date Adult BMI 30+ 02/14/2013 07/02/2017 documented as of this encounter (statuses as of 07/11/2023) [facility] note* Diagnosis Urticaria Urticaria, unspecified Angioedema, subsequent encounter Cough documented in this encounter [facility] note* Diagnosis Encounter for long-term (current) use of medications- Primary Encounter for long-term (current) use of other medications Urticaria Urticaria, unspecified Angioedema, subsequent encounter [facility]ough [facility]* Diagnosis Nausea- Primary Nausea alone Diarrhea, unspecified type Abdominal cramping Abdominal pain, unspecified site [facility]* Diagnosis Primary osteoarthritis of right knee Primary localized osteoarthrosis, lower leg [facility]* Diagnosis Encounter for screening mammogram for malignant neoplasm of breast Other screening mammogram [facility]* Diagnosis Diarrhea, unspecified type- Primary [facility] Diagnosis Urticaria- Primary Urticaria, unspecified Angioedema, subsequent encounter Encounter for long-term (current) use of medications Encounter for long-term (current) use of other medications [facility] Diagnosis Strain of neck muscle, initial encounter- Primary [facility]* Diagnosis Right knee pain, unspecified chronicity- Primary [facility]* Diagnosis Primary osteoarthritis of right knee Primary localized osteoarthrosis, lower leg [facility]* Diagnosis Encounter for screening mammogram for malignant neoplasm of breast- Primary Other screening mammogram Women's annual routine gynecological examination [facility]* Diagnosis Medication refill Issue of repeat prescriptions Encounter for surveillance of contraceptive pills Surveillance of previously prescribed contraceptive pill documented in this encounter [facility] note* Diagnosis Encounter for long-term (current) use of medications Encounter for long-term (current) use of other medications [facility]* Diagnosis Skin infection- Primary Unspecified local infection of skin and subcutaneous tissue [facility] Diagnosis Skin infection- Primary Unspecified local infection of skin and subcutaneous tissue Blister of skin documented in this encounter [facility] note* Diagnosis Acute left-sided low back pain without sciatica- Primary Blister of left hand, initial encounter documented in this encounter [facility] note* Diagnosis Impacted cerumen of left ear- Primary Impacted cerumen documented [facility] encounter [facility]* Diagnosis Urticaria Urticaria, unspecified Angioedema, subsequent encounter Cough documented in this encounter [facility] note* Diagnosis Fatigue, unspecified type- Primary documented in this encounter [facility] note* Diagnosis Primary osteoarthritis of right knee Primary localized osteoarthrosis, lower leg documented in this encounter [facility]* Diagnosis URI, acute- Primary Acute upper respiratory infections of unspecified site documented in this encounter [facility] note* Diagnosis Right knee pain, unspecified chronicity documented in this encounter [facility] note* Diagnosis Encounter for screening mammogram for malignant neoplasm of breast Other screening mammogram documented in this encounter [facility] note* Diagnosis Viral illness- Primary Unspecified viral infection, in conditions classified elsewhere and of unspecified site documented in this encounter [facility] note* Diagnosis Acute pain of right knee- Primary [facility]* Diagnosis Urticaria Urticaria, unspecified Angioedema, subsequent encounter Cough documented in this encounter [facility]* Diagnosis Encounter for gynecological examination (general) (routine) without abnormal findings- Primary Medication refill Issue of repeat prescriptions Encounter for surveillance of contraceptive pills Surveillance of previously prescribed contraceptive pill documented in this encounter [facility] note* Diagnosis URI, acute- Primary Acute upper respiratory infections of unspecified site [facility] this [facility]* Diagnosis Blister of left hand, initial encounter- Primary documented [facility] this [facility]* Diagnosis Blister (nonthermal) of left hand, sequela- Primary [facility] this [facility]* Diagnosis Diarrhea, unspecified type- Primary [facility] this [facility]* Diagnosis Blister of left hand excluding fingers, subsequent encounter- Primary documented in this encounter [facility]* Diagnosis Primary osteoarthritis of right knee Primary localized osteoarthrosis, lower leg [facility] Diagnosis Encounter for screening mammogram for malignant neoplasm of breast- Primary Other screening mammogram documented in this [facility]* Diagnosis Primary osteoarthritis of right knee Primary localized osteoarthrosis, lower leg documented in this encounter [facility]* Diagnosis Pain of upper abdomen- Primary Abdominal pain, other specified site documented in this encounter [facility]* Diagnosis Acute pain of right shoulder- Primary Acute pain of right shoulder [facility] this [facility]* Diagnosis Acute pain of right shoulder- Primary documented in this encounter [facility]* Diagnosis Primary osteoarthritis of right knee Primary localized osteoarthrosis, lower leg documented [facility] this [facility]* Diagnosis Fatigue, unspecified type- Primary documented [facility] this [facility]* Diagnosis Encounter for screening mammogram for malignant neoplasm of breast Other screening mammogram documented [facility] this [facility]* Diagnosis Acute pain of right shoulder documented in this encounter [facility] note* Diagnosis Wrist injury, right, initial encounter documented [facility] this [facility]* Diagnosis Strain of neck muscle, initial encounter- Primary documented in this encounter [facility] note* Diagnosis Viral URI- Primary Acute upper respiratory infections of unspecified site Sinus congestion Other diseases of nasal cavity and sinuses documented in this encounter [facility]* Diagnosis Urticaria- Primary Urticaria, unspecified Angioedema, subsequent encounter Allergy to penicillin Personal history of allergy to penicillin documented in this encounter [facility] note* Diagnosis Allergy to penicillin- Primary Personal history of allergy to penicillin Urticaria Urticaria, unspecified Angioedema, subsequent encounter documented in this encounter [facility] noteNo assessment information availableWProMedica [facility] Work Phone: Hospital course Narrative No data available for this section [facility] Discharge instructionsAdditional Instructions Your evaluation in [...] if your symptoms worsen or new symptoms develop.[facility] Work Phone: Reason for referral (narrative)* Outpatient Procedure (Routine) - Pending Review Specialty Diagnoses / Procedures Referred By Vandana interiano Referred To Contact [facility] Diagnoses Encounter for long-term (current) use of medications Procedures ECG COMPLETE ECG ROUTINE ECG W/LEAST 12 LDS W/I&[place] [address] [id number] [facility] [address] [place] [address] Referral ID Status Reason Start Date Expiration Date Visits Requested Visits Authorized [id number] Pending Review Auto-Generat ed Referral 08/08/2021 08/08/2022 1 1 [facility] for referral (narrative)* Diagnostic Procedure Only (Routine) - Closed Specialty Diagnoses / Procedures Referred By Vandana interiano Referred To Contact [facility] IM[facility] Diagnoses Encounter for screening mammogram for malignant neoplasm of breast Procedures JEN SCREENING W CHRISTOPHER SCREENING DIGITAL BREAST TOMOSYNTHESIS BI SCREENING MAMMOGRAPHY BI 2-VIEW BREAST INC CAD Micah Jo MD [facility] [address] [address] [facility] [address] [place] [phone] Referral ID Status Reason Start Date Expiration Date V isits Requested Visits Authorized [id number] Closed Auto-Generate d Referral 05/05/2021 06/04/2022 1 1 [facility] for referral (narrative)* Outpatient Procedure (Routine) - Pending Review Specialty Diagnoses / Procedures Referred By Vandana interiano Referred To Contact [facility] Diagnoses Encounter for long-term (current) use of medications Procedures ECG COMPLETE ECG ROUTINE ECG W/LEAST 12 LDS W/I&[place] [address] [place] [address] [facility] [place] [address] [place] [address] Referral ID Status Reason Start Date Expiration Date Visits Requested Visits Authorized [id number] Pending Review Auto-Generat ed Referral 2 02/02/2023 1 1 [facility] for referral (narrative)* Diagnostic Procedure Only (Routine) - Pending Review Specialty Diagnoses / Procedures Referred By Contac t Referred To Contact XR IMAGING Diagnoses Right knee pain, unspecified chronicity Procedures XR KNEE GENERAL 4V AP BOTH/PA BOTH/LAT/MERC RIGHT RADIOLOGIC EXAM KNEE COMPLETE 4/MORE VIEWS Arthur Krishnan MD [address] [place] [address] X[facility] Imaging Referral ID Status Reason Start Date Expiration Date Visits Requested Visits Authorized [id number] Pending Review Auto-Generat ed Referral 04/15/2022 05/15/2023 1 1 [facility] for referral (narrative)* Diagnostic Procedure Only (Routine) - Pending Review Specialty Diagnoses / Procedures Referred By Contac t Referred To Contact [facility] IMAG[facility] Diagnoses Encounter for screening mammogram for malignant neoplasm of breast Procedures JEN SCREENING W CHRISTOPHER SCREENING DIGITAL BREAST TOMOSYNTHESIS BI SCREENING MAMMOGRAPHY BI 2-VIEW BREAST INC CAD Micah Jo MD [address] [address] [facility] [address] [place] [address] Referral ID Status Reason Start Date Expiration Date Visits Requested Visits Authorized [id number] Pending Review Auto-Generat ed Referral 05/06/2022 06/05/2023 1 1 [facility] for referral (narrative)* Diagnostic Procedure Only (Routine) - Closed Specialty Diagnoses / Procedures Referred By Contac t Referred To Contact XR IMAGING Diagnoses Right knee pain, unspecified chronicity Procedures XR KNEE GENERAL 4V AP BOTH/PA BOTH/LAT/MERC RIGHT RADIOLOGIC EXAM KNEE COMPLETE 4/MORE VIEWS Arthur Krishnan MD [address] [place] [address] [place] [address] Referral ID Status Reason Start Date Expiration Date V isits Requested Visits Authorized [id number] Closed Auto-Generate d Referral 04/15/2022 05/15/2023 1 1 [facility] for referral (narrative)* Diagnostic Procedure Only (Routine) - Closed Specialty Diagnoses / Procedures Referred By Contac t Referred To Contact BR IM[facility] Diagnoses Encounter for screening mammogram for malignant neoplasm of breast Procedures JEN SCREENING W CHRISTOPHER SCREENING DIGITAL BREAST TOMOSYNTHESIS BI SCREENING MAMMOGRAPHY BI 2-VIEW BREAST INC Micah Avendano MD [address] [address] [facility] [address] [place] [address] Referral ID Status Reason Start Date Expiration Date V isits Requested Visits Authorized [id number] Closed Auto-Generate d Referral 05/06/2022 06/05/2023 1 1 [facility] for referral (narrative)* Diagnostic Procedure Only (Routine) - Pending Review Specialty Diagnoses / Procedures Referred By Vandana interiano Referred To Contact [facility] Diagnoses Encounter for screening mammogram for malignant neoplasm of breast Procedures JEN SCREENING W CHRISTOPHER SCREENING DIGITAL BREAST TOMOSYNTHESIS BI SCREENING MAMMOGRAPHY BI 2-VIEW BREAST INC CAD Micah Jo MD [address] [address] [facility] [address] [place] [address] Referral ID Status Reason Start Date Expiration Date Visits Requested Visits Authorized [id number] Pending Review Auto-Generat ed Referral 07/14/2023 08/12/2024 1 1 [facility] for referral (narrative)* Diagnostic Procedure Only (Urgent) - Closed Specialty Diagnoses / Procedures Referred By Contac t Referred To Contact XR IMAGING Diagnoses Acute pain of right shoulder Procedures XR SHOULDER GENERAL 3V OR MORE AP/TRUE AP/OTHER RIGHT RADEX SHOULDER COMPLETE MINIMUM 2 VIEWS [facility] [address] [place] [address] [place] [address] Referral ID Status Reason Start Date Expiration Date V isits Requested Visits Authorized [id number] Closed Auto-Generate d Referral 08/04/2023 09/02/2024 1 1 [facility] for referral (narrative)No reason for referral information availableWProMedica [facility] Work Phone: Reason for visit Narrative* Diagnostic Procedure Only (Routine) - Closed Specialty Diagnoses / Procedures Referred By Vandana t Referred To Contact BR IMAGING Diagnoses Encounter for screening mammogram for malignant neoplasm of breast Procedures JEN SCREENING W CHRISTOPHER SCREENING DIGITAL BREAST TOMOSYNTHESIS BI SCREENING MAMMOGRAPHY BI 2-VIEW BREAST INC CAD Micah Jo MD [address] [address] [facility] [address] [place] [address] Referral ID Status Reason Start Date Expiration Date V isits Requested Visits Authorized [id number] Closed Auto-Generate d Referral 05/05/2021 06/04/2022 1 1 [facility] for visit Narrative* Diagnostic Procedure Only (Routine) - Closed Specialty Diagnoses / Procedures Referred By Contac t Referred To Contact XR IMAGING Diagnoses Right knee pain, unspecified chronicity Procedures XR KNEE GENERAL 4V AP BOTH/PA BOTH/LAT/MERC RIGHT RADIOLOGIC EXAM KNEE COMPLETE 4/MORE VIEWS Arthur Krishnan MD [address] [place] [address] [place] [address] Referral ID Status Reason Start Date Expiration Date V isits Requested Visits Authorized [id number] Closed Auto-Generate d Referral 04/15/2022 05/15/2023 1 1 [facility] for visit Narrative* Diagnostic Procedure Only (Routine) - Closed Specialty Diagnoses / Procedures Referred By Contac t Referred To Contact BR IM[facility] Diagnoses Encounter for screening mammogram for malignant neoplasm of breast Procedures JEN SCREENING W CHRISTOPHER SCREENING DIGITAL BREAST TOMOSYNTHESIS BI SCREENING MAMMOGRAPHY BI 2-VIEW BREAST INC CAD Micah Jo MD [address] [address] [facility] [address] [place] [address] Referral ID Status Reason Start Date Expiration Date V isits Requested Visits Authorized [id number] Closed Auto-Generate d Referral 05/06/2022 06/05/2023 1 1 [facility] for visit Narrative* Diagnostic Procedure Only (Routine) - Closed Specialty Diagnoses / Procedures Referred By Vandana t Referred To Contact [facility] Diagnoses Encounter for screening mammogram for malignant neoplasm of breast Procedures JEN SCREENING W CHRISTOPHER SCREENING DIGITAL BREAST TOMOSYNTHESIS BI SCREENING MAMMOGRAPHY BI 2-VIEW BREAST INC CAD Micah Jo MD [address] [address] [facility] [address] [place] [address] Referral ID Status Reason Start Date Expiration Date V isits Requested Visits Authorized [id number] Closed Auto-Generate d Referral 07/14/2023 08/12/2024 1 1 [facility] for visit Narrative* Diagnostic Procedure Only (Urgent) - Closed Specialty Diagnoses / Procedures Referred By Vandana interiano Referred To Contact XR IMAGING Diagnoses Acute pain of right shoulder Procedures XR SHOULDER GENERAL 3V OR MORE AP/TRUE AP/OTHER RIGHT RADEX SHOULDER COMPLETE MINIMUM 2 VIEWS [facility] [address] [place] [address] [place] [address] Referral ID Status Reason Start Date Expiration Date V isits Requested Visits Authorized [id number] Closed Auto-Generate d Referral 08/04/2023 09/02/[address] [facility] Summary Purpose Family History No Family History Records FoundNo Family History Records Found No data available for this section No Family History Records FoundNo Family History Records Found Advance Directives No Advanced Directives Records Found Advance Directive Response Recorded Date/ Time Do you have a Healthcare Power of Roof Plumber? No November 01, 2024 7:52pm Reason for Referral Specialty Diagnoses / Procedures Referred By Vandana t Referred To Contact Dermatology Diagnoses Blister (nonthermal) of left hand, sequela Procedures CONSULT TO DERMATOLOGY Podlogar, APRN. [employer] [address] [place] [address] Referral ID Status Reason Start Date Expiration Date Visits Requested Visits Authorized [id number] Ref Not Required PCP Requested Referral 05/24/2023 05/23/2024 1 1 Specialty Diagnoses / Procedures Referred By Contac t Referred To Contact Orthopedics Diagnoses Acute pain of right shoulder Procedures CONSULT TO ORTHOPAEDICS OFFICE/OUTPATIENT [facility] MDM 60 MINUTES [facility] [address] [place] [address] Referral ID Status Reason Start Date Expiration Date Visits Requested Visits Authorized [id number] Authorized PCP Requested Referral 08/04/2023 08/03/2024 1 1 Specialty Diagnoses / Procedures Referred By Contac t Referred To Contact XR IMAGING Diagnoses Acute pain of right shoulder Procedures XR SHOULDER GENERAL 3V OR MORE AP/TRUE AP/OTHER RIGHT RADEX SHOULDER COMPLETE MINIMUM 2 VIEWS [facility] [address] [place] [address] [place] [address] Referral ID Status Reason Start Date Expiration Date V isits Requested Visits Authorized [id number] Closed Auto-Generate d Referral 08/04/2023 09/02/2024 1 [...] section and content) DATE CREATED AUTHOR 09/14/2017 [facility] ([place]) DATE CREATED AUTHOR AUTHOR'S ORGANIZ ATION 03/14/2024 [facility] DATE CREATED AUTHOR AUTHOR'S ORGANIZ ATION 11/01/2024 [facility] DATE CREATED AUTHOR AUTHOR'S ORGANIZ ATION 11/25/2024 [facility] Source Comments (unrecognize d section and content) In the event this informatio n is protected by the Federal Confidentiality of Alcohol and Drug Abuse Patient Records regulations: The Federal rules restrict any use of the information to criminally investigate or prosecute any alcohol or drug abuse patient.[facility] this information is protected by the Federal Confidentiality of Alcohol and Drug Abuse Patient Records regulations: The Federal rules restrict any use of the information to criminally investigate or prosecute any alcohol or drug abuse patient.[facility] event this information is protected by the Federal Confidentiality of Alcohol and Drug Abuse Patient Records regulations: The Federal rules restrict any use of the information to criminally investigate or prosecute any alcohol or drug abuse patient.[facility] event this information is protected by the Federal Confidentiality of Alcohol and Drug Abuse Patient Records regulations: The Federal rules restrict any use of the information to criminally investigate or prosecute any alcohol or drug abuse patient.[facility] event this information is protected by the Federal Confidentiality of Alcohol and Drug Abuse Patient Records regulations: The Federal rules restrict any use of the information to criminally investigate or prosecute any alcohol or drug abuse patient.[facility] event this information is protected by the Federal Confidentiality of Alcohol and Drug Abuse Patient Records regulations: The Federal rules restrict any use of the information to criminally investigate or prosecute any alcohol or drug abuse patient.[facility] event this information is protected by the Federal Confidentiality of Alcohol and Drug Abuse Patient Records regulations: The Federal rules restrict any use of the information to criminally investigate or prosecute any alcohol or drug abuse patient.[facility] the event this information is protected by the Federal Confidentiality of Alcohol and Drug Abuse Patient Records regulations: The Federal rules restrict any use of the information to criminally investigate or prosecute any alcohol or drug abuse patient.[facility] the event this information is protected by the Federal Confidentiality of Alcohol and Drug Abuse Patient Records regulations: The Federal rules restrict any use of the information to criminally investigate or prosecute any alcohol or drug abuse patient.[facility] the event this information is protected by the Federal Confidentiality of Alcohol and Drug Abuse Patient Records regulations: The Federal rules restrict any use of the information to criminally investigate or prosecute any alcohol or drug abuse patient.[facility] the event this information is protected by the Federal Confidentiality of Alcohol and Drug Abuse Patient Records regulations: The Federal rules restrict any use of the information to criminally investigate or prosecute any alcohol or drug abuse patient.[facility] the event this information is protected by the Federal Confidentiality of Alcohol and Drug Abuse Patient Records regulations: The Federal rules restrict any use of the information to criminally investigate or prosecute any alcohol or drug abuse patient.[facility] the event this information is protected by the Federal Confidentiality of Alcohol and Drug Abuse Patient Records regulations: The Federal rules restrict any use of the information to criminally investigate or prosecute any alcohol or drug abuse patient.[facility] the event this information is protected by the Federal Confidentiality of Alcohol and Drug Abuse Patient Records regulations: The Federal rules restrict any use of the information to criminally investigate or prosecute any alcohol or drug abuse patient.[facility] the event this information is protected by the Federal Confidentiality of Alcohol and Drug Abuse Patient Records regulations: The Federal rules restrict any use of the information to criminally investigate or prosecute any alcohol or drug abuse patient.[facility] the event this information is protected by the Federal Confidentiality of Alcohol and Drug Abuse Patient Records regulations: The Federal rules restrict any use of the information to criminally investigate or prosecute any alcohol or drug abuse patient.[facility] the event this information is protected by the Federal Confidentiality of Alcohol and Drug Abuse Patient Records regulations: The Federal rules restrict any use of the information to criminally investigate or prosecute any alcohol or drug abuse patient.[facility] the event this information is protected by the Federal Confidentiality of Alcohol and Drug Abuse Patient Records regulations: The Federal rules restrict any use of the information to criminally investigate or prosecute any alcohol or drug abuse patient.[facility] the event this information is protected by the Federal Confidentiality of Alcohol and Drug Abuse Patient Records regulations: The Federal rules restrict any use of the information to criminally investigate or prosecute any alcohol or drug abuse patient.[facility] the event this information is protected by the Federal Confidentiality of Alcohol and Drug Abuse Patient Records regulations: The Federal rules restrict any use of the information to criminally investigate or prosecute any alcohol or drug abuse patient.[facility] the event this information is protected by the Federal Confidentiality of Alcohol and Drug Abuse Patient Records regulations: The Federal rules restrict any use of the information to criminally investigate or prosecute any alcohol or drug abuse patient.[facility] the event this information is protected by the Federal Confidentiality of Alcohol and Drug Abuse Patient Records regulations: The Federal rules restrict any use of the information to criminally investigate or prosecute any alcohol or drug abuse patient.[facility] the event this information is protected by the Federal Confidentiality of Alcohol and Drug Abuse Patient Records regulations: The Federal rules restrict any use of the information to criminally investigate or prosecute any alcohol or drug abuse patient.[facility] the event this information is protected by the Federal Confidentiality of Alcohol and Drug Abuse Patient Records regulations: The Federal rules restrict any use of the information to criminally investigate or prosecute any alcohol or drug abuse patient.[facility] the event this information is protected by the Federal Confidentiality of Alcohol and Drug Abuse Patient Records regulations: The Federal rules restrict any use of the information to criminally investigate or prosecute any alcohol or drug abuse patient.[facility] the event this information is protected by the Federal Confidentiality of Alcohol and Drug Abuse Patient Records regulations: The Federal rules restrict any use of the information to criminally investigate or prosecute any alcohol or drug abuse patient.[facility] the event this information is protected by the Federal Confidentiality of Alcohol and Drug Abuse Patient Records regulations: The Federal rules restrict any use of the information to criminally investigate or prosecute any alcohol or drug abuse patient.[facility] HospitalIn the event this information is protected by the Federal Confidentiality of Alcohol and Drug Abuse Patient Records regulations: The Federal rules restrict any use of the information to criminally investigate or prosecute any alcohol or drug abuse patient.[facility] HospitalIn the event this information is protected by the Federal Confidentiality of Alcohol and Drug Abuse Patient Records regulations: The Federal rules restrict any use of the information to criminally investigate or prosecute any alcohol or drug abuse patient.[facility] HospitalIn the event this information is protected by the Federal Confidentiality of Alcohol and Drug Abuse Patient Records regulations: The Federal rules restrict any use of the information to criminally investigate or prosecute any alcohol or drug abuse patient.[facility] HospitalIn the event this information is protected by the Federal Confidentiality of Alcohol and Drug Abuse Patient Records regulations: The Federal rules restrict any use of the information to criminally investigate or prosecute any alcohol or drug abuse patient.[facility] HospitalIn the event this information is protected by the Federal Confidentiality of Alcohol and Drug Abuse Patient Records regulations: The Federal rules restrict any use of the information to criminally investigate or prosecute any alcohol or drug abuse patient.[facility] HospitalIn the event this information is protected by the Federal Confidentiality of Alcohol and Drug Abuse Patient Records regulations: The Federal rules restrict any use of the information to criminally investigate or prosecute any alcohol or drug abuse patient.[facility] HospitalIn the event this information is protected by the Federal Confidentiality of Alcohol and Drug Abuse Patient Records regulations: The Federal rules restrict any use of the information to criminally investigate or prosecute any alcohol or drug abuse patient.[facility] HospitalIn the event this information is protected by the Federal Confidentiality of Alcohol and Drug Abuse Patient Records regulations: The Federal rules restrict any use of the information to criminally investigate or prosecute any alcohol or drug abuse patient.[facility] the event this information is protected by the Federal Confidentiality of Alcohol and Drug Abuse Patient Records regulations: The Federal rules restrict any use of the information to criminally investigate or prosecute any alcohol or drug abuse patient.[facility] HospitalIn the event this information is protected by the Federal Confidentiality of Alcohol and Drug Abuse Patient Records regulations: The Federal rules restrict any use of the information to criminally investigate or prosecute any alcohol or drug abuse patient.[facility] HospitalIn the event this information is protected by [...] or prosecute any alcohol or drug abuse patient.[facility] HospitalIn the event this information is protected by the Federal Confidentiality of Alcohol and Drug Abuse Patient Records regulations: The Federal rules restrict any use of the information to criminally investigate or prosecute any alcohol or drug abuse patient.[facility] HospitalIn the event this information is protected by the Federal Confidentiality of Alcohol and Drug Abuse Patient Records regulations: The Federal rules restrict any use of the information to criminally investigate or prosecute any alcohol or drug abuse patient.[facility] HospitalIn the event this information is protected by the Federal Confidentiality of Alcohol and Drug Abuse Patient Records regulations: The Federal rules restrict any use of the information to criminally investigate or prosecute any alcohol or drug abuse patient.[facility] HospitalIn the event this information is protected by the Federal Confidentiality of Alcohol and Drug Abuse Patient Records regulations: The Federal rules restrict any use of the information to criminally investigate or prosecute any alcohol or drug abuse patient.[facility] HospitalIn the event this information is protected by the Federal Confidentiality of Alcohol and Drug Abuse Patient Records regulations: The Federal rules restrict any use of the information to criminally investigate or prosecute any alcohol or drug abuse patient.[facility] HospitalIn the event this information is protected by the Federal Confidentiality of Alcohol and Drug Abuse Patient Records regulations: The Federal rules restrict any use of the information to criminally investigate or prosecute any alcohol or drug abuse patient.[facility] HospitalIn the event this information is protected by the Federal Confidentiality of Alcohol and Drug Abuse Patient Records regulations: The Federal rules restrict any use of the information to criminally investigate or prosecute any alcohol or drug abuse patient.[facility] HospitalIn the event this information is protected by the Federal Confidentiality of Alcohol and Drug Abuse Patient Records regulations: The Federal rules restrict any use of the information to criminally investigate or prosecute any alcohol or drug abuse patient.[facility] HospitalIn the event this information is protected by the Federal Confidentiality of Alcohol and Drug Abuse Patient Records regulations: The Federal rules restrict any use of the information to criminally investigate or prosecute any alcohol or drug abuse patient.[facility] HospitalIn the event this information is protected by the Federal Confidentiality of Alcohol and Drug Abuse Patient Records regulations: The Federal rules restrict any use of the information to criminally investigate or prosecute any alcohol or drug abuse patient.[facility] HospitalIn the event this information is protected by the Federal Confidentiality of Alcohol and Drug Abuse Patient Records regulations: The Federal rules restrict any use of the information to criminally investigate or prosecute any alcohol or drug abuse patient.[facility] HospitalIn the event this information is protected by the Federal Confidentiality of Alcohol and Drug Abuse Patient Records regulations: The Federal rules restrict any use of the information to criminally investigate or prosecute any alcohol or drug abuse patient.[facility] HospitalIn the event this information is protected by the Federal Confidentiality of Alcohol and Drug Abuse Patient Records regulations: The Federal rules restrict any use of the information to criminally investigate or prosecute any alcohol or drug abuse patient.[facility] HospitalIn the event this information is protected by the Federal Confidentiality of Alcohol and Drug Abuse Patient Records regulations: The Federal rules restrict any use of the information to criminally investigate or prosecute any alcohol or drug abuse patient.[facility] HospitalIn the event this information is protected by the Federal Confidentiality of Alcohol and Drug Abuse Patient Records regulations: The Federal rules restrict any use of the information to criminally investigate or prosecute any alcohol or drug abuse patient.[facility] HospitalIn the event this information is protected by the Federal Confidentiality of Alcohol and Drug Abuse Patient Records regulations: The Federal rules restrict any use of the information to criminally investigate or prosecute any alcohol or drug abuse patient.[facility] HospitalIn the event this information is protected by the Federal Confidentiality of Alcohol and Drug Abuse Patient Records regulations: The Federal rules restrict any use of the information to criminally investigate or prosecute any alcohol or drug abuse patient.[facility] HospitalIn the event this information is protected by the Federal Confidentiality of Alcohol and Drug Abuse Patient Records regulations: The Federal rules restrict any use of the information to criminally investigate or prosecute any alcohol or drug abuse patient.[facility] HospitalIn the event this information is protected by the Federal Confidentiality of Alcohol and Drug Abuse Patient Records regulations: The Federal rules restrict any use of the information to criminally investigate or prosecute any alcohol or drug abuse patient.[facility] HospitalIn the event this information is protected by the Federal Confidentiality of Alcohol and Drug Abuse Patient Records regulations: The Federal rules restrict any use of the information to criminally investigate or prosecute any alcohol or drug abuse patient.[facility] HospitalIn the event this information is protected by the Federal Confidentiality of Alcohol and Drug Abuse Patient Records regulations: The Federal rules restrict any use of the information to criminally investigate or prosecute any alcohol or drug abuse patient.[facility] HospitalIn the event this information is protected by the Federal Confidentiality of Alcohol and Drug Abuse Patient Records regulations: The Federal rules restrict any use of the information to criminally investigate or prosecute any alcohol or drug abuse patient.[facility] HospitalIn the event this information is protected by the Federal Confidentiality of Alcohol and Drug Abuse Patient Records regulations: The Federal rules restrict any use of the information to criminally investigate or prosecute any alcohol or drug abuse patient.[facility] HospitalIn the event this information is protected by the Federal Confidentiality of Alcohol and Drug Abuse Patient Records regulations: The Federal rules restrict any use of the information to criminally investigate or prosecute any alcohol or drug abuse patient.[facility] HospitalIn the event this information is protected by the Federal Confidentiality of Alcohol and Drug Abuse Patient Records regulations: The Federal rules restrict any use of the information to criminally investigate or prosecute any alcohol or drug abuse patient.[facility] Reason for Visit (unrecogniz ed section and [...] W/LEAST 12 LDS W/[place] [address] [place] [address] [facility] [place] [address] [facility] [address] Referral ID Status Reason Start Date Expiration Date V isits Requested Visits Authorized [id number] Closed Auto-Generate d Referral 02/02/2022 02/02/2023 1 [...] Self Treva Reynolds MD [address] [place] [address] Referral ID Status Reason Start Date Expiration Date V isits Requested Visits Authorized [id number] Authorized 03/22/2022 03/21/2023 99 99 Reason Comments [...] Care Teams (unrecognized sec tion and content) Echo Technician Relationship Specialty Start Date End Date Cheng Mcdaniel MD [address] [place] [address] PCP - General Family Practice 05/06/18 Echo Technician Relationship Specialty Start Date End Date Cheng Mcdaniel MD [address] [place] [address] PCP - General Family Practice 05/06/18 Echo Technician Relationship Specialty Start Date End Date Cheng Mcdaniel MD [address] [place] [address] PCP - General Family Practice 05/06/18 Echo Technician Relationship Specialty Start Date End Date Cheng Mcdaniel MD [address] [facility] [place] [address] PCP - General Family Practice 05/06/18 Echo Technician Relationship Specialty Start Date End Date Cheng Mcdaniel MD [address] [place] [address] PCP - General Family Practice 05/06/18 Echo Technician Relationship Specialty Start Date End Date Cheng Mcdaniel MD [address] [place] [address] PCP - General Family Practice 05/06/18 Echo Technician Relationship Specialty Start Date End Date Cheng Mcdaniel MD [address] [place] [address] PCP - General Family Practice 05/06/18 Echo Technician Relationship Specialty Start Date End Date Cheng Mcdaniel MD [address] [facility] [place] [address] PCP - General Family Medicine 05/06/18 Echo Technician Relationship Specialty Start Date End Date Cheng Mcdaniel MD [address] [facility] [place] [address] PCP - General Family Medicine 05/06/18 Echo Technician Relationship Specialty Start Date End Date Cheng Mcdaniel MD [address] [facility] [place] [address] PCP - General Family Medicine 05/06/18 Echo Technician Relationship Specialty Start Date End Date Cheng Mcdaniel MD [address] [facility] [place] [address] PCP - General Family Medicine 05/06/18 Echo Technician Relationship Specialty Start Date End Date Cheng Mcdaniel MD [address] [facility] [place] [address] PCP - General Family Medicine 05/06/18 Echo Technician Relationship Specialty Start Date End Date Cheng Mcdaniel MD [address] [facility] [place] [address] PCP - General Family Medicine 05/06/18 Echo Technician Relationship Specialty Start Date End Date Cheng Mcdaniel MD [address] [facility] [place] [address] PCP - General Family Medicine 05/06/18 Echo Technician Relationship Specialty Start Date End Date Cheng Mcdaniel MD [address] [facility] [place] [address] PCP - General Family Medicine 05/06/18 Echo Technician Relationship Specialty Start Date End Date Cheng Mcdaniel MD [address] [facility] [place] [address] PCP - General Family Medicine 05/06/18 Echo Technician Relationship Specialty Start Date End Date Cheng Mcdaniel MD [address] [place] [address] PCP - General Family Medicine 05/06/18 Echo Technician Relationship Specialty Start Date End Date Cheng Mcdaniel MD [address] [place] [address] PCP - General Family Medicine 05/06/18 Echo Technician Relationship Specialty Start Date End Date Cheng Mcdaniel MD [address] [place] [address] PCP - General Family Medicine 05/06/18 Echo Technician Relationship Specialty Start Date End Date Cheng Mcdaniel MD [address] [place] [address] PCP - General Family Medicine 05/06/18 Echo Technician Relationship Specialty Start Date End Date Cheng Mcdaniel MD [address] [place] [address] PCP - General Family Medicine 05/06/18 Echo Technician Relationship Specialty Start Date End Date Cheng Mcdaniel MD [address] [place] [address] PCP - General Family Medicine 05/06/18 Echo Technician Relationship Specialty Start Date End Date Cheng Mcdaniel MD [address] [place] [address] PCP - General Family Medicine 05/06/18 Echo Technician Relationship Specialty Start Date End Date Cheng Mcdaniel MD [address] [facility] [place] [address] PCP - General Family Medicine 05/06/18 Echo Technician Relationship Specialty Start Date End Date Cheng Mcdaniel MD [address] [facility] [place] [address] PCP - General Family Medicine 05/06/18 Echo Technician Relationship Specialty Start Date End Date Cheng Mcdaniel MD [address] [facility] [place] [address] PCP - General Family Medicine 05/06/18 Echo Technician Relationship Specialty Start Date End Date Cheng Mcdaniel MD [address] [facility] [place] [address] PCP - General Family Medicine 05/06/18 Echo Technician Relationship Specialty Start Date End Date Cheng Mcdaniel MD [address] [facility] [place] [address] PCP - General Family Medicine 05/06/18 Echo Technician Relationship Specialty Start Date End Date Cheng Mcdaniel MD [address] [facility] [place] [address] PCP - General Family Medicine 05/06/18 Echo Technician Relationship Specialty Start Date End Date Cheng Mcdaniel MD [address] [facility] [place] [address] PCP - General Family Medicine 05/06/18 Echo Technician Relationship Specialty Start Date End Date Cheng Mcdaniel MD [address] [facility] [place] [address] PCP - General Family Medicine 05/06/18 Echo Technician Relationship Specialty Start Date End Date Cheng Mcdaniel MD [address] [facility] [place] [address] PCP - General Family Medicine 05/06/18 Echo Technician Relationship Specialty Start Date End Date Cheng Mcdaniel MD [address] [place] [address] PCP - General Family Medicine 05/06/18 Echo Technician Relationship Specialty Start Date End Date Cheng Mcdaniel MD [address] [place] [address] PCP - General Family Medicine 05/06/18 Echo Technician Relationship Specialty Start Date End Date Cheng Mcdaniel MD [address] [place] [address] PCP - General Family Medicine 05/06/18 Echo Technician Relationship Specialty Start Date End Date Cheng Mcdaniel MD [address] [facility] [place] [address] PCP - General Family Medicine 05/06/18 Echo Technician Relationship Specialty Start Date End Date Cheng Mcdaniel MD [address] [facility] [place] [address] PCP - General Family Medicine 05/06/18 Echo Technician Relationship Specialty Start Date End Date Cheng Mcdaniel MD [address] [facility] [place] [address] PCP - General Family Medicine 05/06/18 Echo Technician Relationship Specialty Start Date End Date Cheng Mcdaniel MD [address] [place], [place] [address] PCP - General Family Medicine 05/06/18 Echo Technician Relationship Specialty Start Date End Date Cheng Mcdaniel MD [address] [place], [place] [address] PCP - General Family Medicine 05/06/18 [employer]logarJ[employer] APRN.ABSORBER OPERATOR [address] [place], [place] [address] [facility] 02/26/24 Echo Technician Relationship Specialty Start Date End Date Cheng Mcdaniel MD [address] [place], [place] [address] PCP - General Family Medicine 05/06/18 PodlogarJazz APRN.ABSORBER OPERATOR [address] [place], [place] [address] [facility] 02/26/24 Team Status: Active Member [...] 2024 End: October 09, 2024 Nico Osuna GROCERY CHECKER, GROCERY CHECKER-C Attending Provider Active Start: October 09, 2024 End: October 09, 2024 Nico Osuna GROCERY CHECKER, GROCERY CHECKER-C Referring Provider Active Start: October 09, 2024 End: October 09, 2024 Team Status: Inactive Member Role/Relationship Status Yoav Riggins MD Primary Care Provider Active St art: October 09, 2024 End: October 09, 2024 Nico Osuna GROCERY CHECKER, GROCERY CHECKER-C Attending Provider Active Start: October 09, 2024 End: October 09, 2024 Nico Osuna GROCERY CHECKER, GROCERY CHECKER-C Referring Provider Active Start: October 09, 2024 [...] BE BASED ON THE PRIMARY CLINICAL RECORDS. [facility] [employer] [facility]. provides no warranty or guarantee of the accuracy or completeness of information in this document.
[2024-12-14 14:09] LABS: HPV APTIMA, High Risk Negative (Negative)
== END | disposition home or self-care (01) ==
LOC: LABSPEC 06:57
PROVIDERS: PCP Family Medicine
DX: Z12.4 Encounter for screening for malignant neoplasm of cervix (principal)
CPT/HCPCS: 88175; G0145

== ENCOUNTER → 2025-03-16 | Outpatient (CLI) | payer OTHER, SELFPAY ==
--- OUTSIDE RECORDS SUMMARY | 2025-03-16 14:21 | XMS RPT_ITS | CCD ---
Author Organization [facility] Care Team Providers Care Wrinkle Chaser Name Role Phone PEYTON KAM Unavailable Unavailable DUANE STAUFFER Unavailable Unavailable Cheng Mcdaniel MD Primary Care Provider Cheng Mcdaniel MD Primary Care Provider Cheng Mcdaniel MD Primary Care Provider Cheng Mcdaniel MD Primary Care Provider Cheng Mcdaniel MD Primary Care Provider Podlogar MANAGER INFUSION.WOOL GRADER, Jazz Unavailable WILD RIGGINS MD Primary Care Physician [phone] Onesimo GOLDSMITH, Wild Primary Care Provider Wild Riggins MD Referring Provider Kunal Chicas Attending Provider Jsorrow IMMIGRATION COORDINATOR-CNico Attending Provider Jsorrow IMMIGRATION COORDINATOR-CNico Referring Provider DEMARCUS LARSEN Attending Unavailable WILD RIGGNIS MD Primary Care Unavailable Wild Riggins MD Primary Care Provider Oscar GOLDSMITH, Dr. Platt Referring Provider Unavailab oneyda Moore MD, Dr. Platt Emergency Provider Unavailab oneyda Moore MD, Dr. Paltt Attending Provider Unavailab Wild Warner MD Attending Provider Wild Riggins MD Referring Provider Wild Riggins Primary Care Unavailable McMorrow IMMIGRATION COORDINATORNico Attending Unavailable Jsorrow IMMIGRATION COORDINATORNico Referring Unavailable Wild Riggins Attending Unavailable Onesimo, Chalon Referring Unavailable Onesimo, Chalon Primary Care Unavailable Oscar, Giulia Attending Unavailable Oscar, Giulia Referring Unavailable Onesimo, Chalon Primary Care Unavailable Onesimo, Chalon Attending Unavailable Onesimo, Chalon Primary Care Unavailable McMorrow IMMIGRATION COORDINATOR, Nico Attending Unavailable Onesimo, Chalon Primary Care Unavailable Onesimo, Chalon Primary Care Unavailable Onesimo, Chalon Attending Unavailable Onesimo, Chalon Referring Unavailable Kunal Chicas Attending Unavailable Onesimo, Chalon Referring Unavailable Onesimo, Chalon Primary Care Unavailable Onesimo, Chalon Primary Care Unavailable Kunal Chicas Attending Unavailable Onesimo, Chalon Referring Unavailable Onesimo, Chalon Primary Care Unavailable Kunal Chicas Attending Unavailable Onesimo, Chalon Referring Unavailable Onesimo, Chalon Primary Care Unavailable Kunal Chicas Attending Unavailable Onesimo, Chalon Referring Unavailable Onesimo, Chalon Primary Care Unavailable Onesimo, Chalon Attending Unavailable Onesimo, Chalon Referring Unavailable McMorrow IMMIGRATION COORDINATOR, Nico Attending Unavailable Onesimo, Chalon Primary Care Unavailable BURSLEY, CHRISTOPHER B Primary Care Unavailab le PARASHAR, JACINTA Attending Unavailable BURSLEY, CHRISTOPHER B Primary Care Unavailab le PARASHAR, JACINTA Attending Unavailable BURSLEY, CHRISTOPHER B Primary Care Unavailab le PARASHAR, JACINTA Referring Unavailable BURSLEY, CHRISTOPHER B Primary Care Unavailab le BURSLEY, CHRISTOPHER B Primary Care Unavailab le Onesimo GOLDSMITH, Wild Primary Care Physician [phone] [facility] COORDINATOR-C, Nico Attending Physician Dr. Giulia Moore MD Attending Physician Unavaila Dr. Giulia Stark MD Emergency Department Physici an Unavailable Wild Riggins MD Attending Physician Dr. Krish Durbin MD Attending Physician Kunal Chicas Attending Physician Allergies Allergy Classification Reported Allergen(s) Allergy Type Date of Onset Reaction(s) Facility Penicillins (antibiotic) (1 source) Penicillins Drug Allergy 2 [facility] (7 sources) Angiotensin-con verting enzyme inhibitor agent; Translations: [angiotensin converting enzyme inhibitors] Propensity to adverse reactions to drug 4 [facility] Work Phone: Comment on above: ANGIOEDEMA (6 sources) Penicillins; Translations: [PENICILLINS] Propensity to adverse reactions 2 [facility] (20 sources) Bupropion/Dieth ylpropion; Translations: [BUPROPION/DIET HYLPROPION] Propensity to adverse reactions 3 Rash [facility] (20 sources) Angiotensin-con verting enzyme inhibitor agent Propensity to adverse reactions to drug 4 Angioedema [facility] Work Phone: (20 sources) Penicillins Propensity to adverse reactions 2 [facility] (1 source) buPROPion; Translations: [bupropion] Drug Allergy [facility] (6 sources) Amoxicillin Drug Allergy 5 Upset Stomach [facility] (6 sources) Angiotensin Converting Enzyme (Haroldo) Inhibitors Allergy to substance 5 PT UNSURE OF REACTION [facility] (6 sources) Clavulanate Drug Allergy 5 Upset Stomach [facility] (3 sources) Penicillins Allergy to substance 5 Hives [facility] (1 source) Amoxicillin Drug Allergy 5 [facility] (1 source) Angiotensin Converting Enzyme (Haroldo) Inhibitors Drug allergy (disorder) 5 [facility] (1 source) Clavulanate Drug Allergy 5 [facility] (1 source) Penicillins Drug allergy (disorder) 5 [facility] Rep[facility] Medications Current Medications Medication [...] Quantity: 18.0 Unit: g Repeat number: 1 benzonatate 200 mg oral capsule (3 sources) Non-narcotic Antitussive Start: 12-12-2024 take 1 capsule by mouth three times daily as needed for cough Benzonatate 200 mg capsule Active 200 mg PO THREE TIMES A DAY as needed for cough 20 0 December 12, 2024 12:00am Complies with drug therapy cephalexin 500 mg oral capsule (4 sources) Cephalosporin Antibacterial Start: 07-22-2022 End: 08-01-2022 take 1 capsule by mouth four times daily cephALEXin (KEFLEX) 500 mg capsule Indications: Skin infection Take 1 capsule by mouth four times daily for 5 days. 40 capsule 0 07/27/2022 08/01/2022 Active Comment on above: Take 1 capsule by mo [facility] four times daily for 5 days. cetirizine hydrochloride 10 mg oral tablet (10 sources) Histamine-1 Receptor Antagonist Start: 01-27-2024 take 1 tablet by mouth once daily Cetirizine 10 mg tablet Active 10 mg PO daily February 15, 2024 1:00am Complies with drug therapy Start: 01-14-2024 End: 01-21-2024 take 1 tablet by mouth once daily cetirizine (ZYRTEC) 10 mg tablet Take 1 tablet by mouth once daily for 7 days. 7 tablet 01/14/2024 01/21/2024 Active cyclobenzaprine hydrochloride 10 mg oral tablet (20 sources) Muscle Relaxant Start: 02-15-2024 End: 06-14-2024 take 1 tablet by mouth at bedtime as needed for muscle spasms Cyclobenzaprine 10 mg tablet Active 10 mg PO BEDTIME as needed for muscle spasm 14 0 June 14, 2024 11:29am Complies with drug therapy Start: 03-06-2022 End: 06-19-2022 take 1 tablet by mouth every eight hours as needed cyclobenzaprine (FLEXERIL) 10 mg tablet Take 1 tablet by mouth three times daily as needed for muscle spasm. 21 tablet 0 03/06/2022 06/19/2022 Discontinued (Course of therapy completed) Comment on above: [facility] as needed for muscle spasm. doxepin hydrochloride 25 mg oral capsule (20 sources) Tricyclic Antidepressant Start: 02-06-20 End: 01-27-20 take 1 capsule by mouth at bedtime Doxepin 25 mg capsule Active 25 mg PO AT BEDTIME December 03, 2023 12:00am Complies with drug therapy Start: 02-02-2022 End: 11-30-2022 take 1 capsule [...] on above: TAKE 1 CAPSULE BY MO UT EVERYDAY AT BEDTIME Take 1 capsule by mo ut daily at bedtime. doxycycline hyclate 100 mg oral tablet (3 sources) Tetracycline-class Drug Start: 2023 End: 2023 take 1 tablet by mouth twice daily doxycycline (VIBRA-TABS) 100 mg tablet Take 1 tablet by mouth two times a day for 7 days. 14 tablet 0 07/11/2023 07/18/2023 Active Comment on above: Take 1 tablet by ricardo two times a day for 7 days. levocetirizine dihydrochloride 5 mg oral tablet (1 source) Histamine-1 Receptor Antagonist Start: 2016 levocetirizine 5 mg oral tablet (NF) Dose : 5 mg = 1 tab(s), Oral, qPM, # 30 tab(s), 0 Refill(s) Start Date: 02/23/17 Status: Ordered Quantity: 30.0 Unit: tab(s) Repeat number: 1 methylPREDNISolone 4 mg oral tablet (11 sources) Corticosteroid Start: 2024 End: 2024 take 1 tablet by mouth once Methylprednisolone (Medrol (Ifrah)) 4 mg tablets,dose pack Active 0 PO per package directions 21 0 December 12, 2024 12:00am PO PER PKG DIR Complies with drug therapy Start: 08-04-2023 End: 08-10-2023 methylPREDNISolone (MEDROL, IFRAH,) 4 mg Dose-Pack Follow dosing instructions, take with food. 21 tablet 0 08/04/2023 08/10/2023 Active [facility] (1 source) Start: 02-23-2017 [facility] Refill(s) Start Date: 02/23/17 Status: Ordered Repeat number: 1 montelukast 10 mg oral tablet (20 sources) Leukotriene Receptor Antagonist Start: 06-24-2021 End: 01-27-2024 take 1 tablet by mouth at bedtime Montelukast (Singulair) 10 mg tablet Active 10 mg PO AT BEDTIME December 03, 2023 12:00am Complies with drug therapy Start: 02-23-2017 End: 04-26-2020 take 1 tablet [...] (3 sources) RNA Synthetase Inhibitor Antibacterial Start: 07-23-19 End: 07-30-19 mupirocin (BACTROBAN) 2 % ointment Apply to affected area three times daily for 7 days. 15 g 0 07/22/2022 07/29/2022 Active Comment on above: Apply to affected ar ea three times daily for 7 days. norgestrel 0.075 mg oral tablet (3 sources) Start: 12-13-19 take 1 tablet by mouth once daily Norgestrel (Opill) 0.075 mg tablet Active 1 {tbl} PO daily Yeimi 23rd, 2025 12:00am Complies with drug therapy ofloxacin 3 mg/ml otic solution (1 source) Quinolone Antimicrobial Start: 10-15-19 End: 10-25-19 ofloxacin (FLOXIN) 0.3 % otic solution Use 5 Drops in the left ear twice daily for 10 days. 5 mL 0 10/14/2022 10/24/2022 Active Comment on above: Use 5 Drops in the l eft ear twice daily for 10 days. sulfamethoxazole 800 mg / trimethoprim 160 mg oral tablet (4 sources) Dihydrofolate Reductase Inhibitor Antibacterial, Sulfonamide Antimicrobial Start: 05-23-19 End: 05-30-19 take 1 tablet by mouth twice daily [...] above: Take 1 tablet by ricardo th twice daily for 10 days. Take 1 tablet by ricardo th two [...] oral solution (2 sources) alpha-Adrenergic Agonist, Uncompetitive L-drngpd-T-aspartate Receptor Antagonist, Sigma-1 Agonist Start: 04-25-2021 End: 08-08-2021 take 5-10 mL by mouth every six hours as needed Oudqvnudgyiidwc-Venmynmhq-PK (BROMFED DM) 2-30-10 mg/5 mL syrup Take [...] 1 TABLET BY RICARDO TH EVERY DAY [id number] 0.3 ml EPINEPHrine 1 mg/ml auto-injector (1 source) alpha-Adrenergic Agonist, beta-Adrenergic Agonist, Catecholamine Start: 02-24-2017 EpiPen 2-Ifrah 0.3 mg injectable kit Dose : 0.3 mg = 1 EA, Intramuscular, AsDirected, PRN allergic reaction, # 1 kit(s), 0 Refill(s) Start Date: 02/24/17 Status: Ordered Quantity: 1.0 Unit: kit(s) Repeat number: 1 Levonorgestrel-Ethinyl Estrad (20 sources) Progestin, Estrogen, Progestin-containing Intrauterine Device Start: 02-15-2024 End: 12-12-2024 Levonorgestrel-Ethinyl Estrad (Altavera (28)) 0.15-0.03 mg tablet Discontinued 1 {tbl} PO daily February 15, 2024 1:00am December 12, 2024 6:14am Start: 02-15-2024 Levonorgestrel -Ethinyl Estrad (Altavera (28)) 0.15-0.03 mg tablet Active [...] EVERY DAY famotidine 20 mg oral tablet (19 sources) Histamine-2 Receptor Antagonist Start: 07-27-19 End: 12-13-19 take 1 tablet by mouth twice daily Famotidine (Pepcid) 20 mg tablet Discontinued 20 mg PO TWICE A DAY 10 December 03, 2023 12:00am December 12, 2024 6:13am fluticasone propionate 0.05 mg/actuat metered dose nasal spray (14 sources) Corticosteroid Start: 02-15-20 End: 12-13-19 Fluticasone Propionate 50 mcg/actuation spray,suspension Discontinued INTRANASAL February 15, 2024 1:00am December 12, 2024 6:14am Start: 01-14-2024 take 2 spray(s) by m [...] nostril once daily. Rinse mouth after use. methocarbamol 500 mg oral tablet (7 sources) Muscle Relaxant Start: End: take 2 tablets by mouth twice daily Methocarbamol 500 mg tablet Discontinued 1000 mg PO TWICE A DAY February 15, 2024 1:00am December 12, 2024 6:14am Start: 12-30-2023 End: 01-02-2024 take 1 tablet by mouth every six hours as needed methocarbamol (ROBAXIN) 500 mg tablet Take 1 tablet by mouth every 6 hours as needed (Pain) for up to 3 days. 12 tablet 12/30/2023 01/02/2024 Active naproxen 500 mg oral tablet (1 source) Nonsteroidal Anti-inflammatory Drug Start: 08-18-2019 End: 03-25-2020 take 1 tablet by mouth twice daily as needed for pain naproxen (NAPROSYN) 500 mg tablet Indications: Acute pain of right knee Take 1 tablet by mouth twice daily as needed (pain/inflammation, take with food.). 20 tablet 1 08/18/2019 03/25/2020 Discontinued (Course of therapy completed) ondansetron 4 mg disintegrating oral tablet (2 sources) Serotonin-3 Receptor Antagonist Start: 09-25-2020 End: 08-08-2021 take 1 tablet by mouth every eight hours as needed ondansetron orally disintegrating (ZOFRAN ODT) 4 mg disintegrating tablet Take 1 tablet by mouth every 8 hours as needed. 20 tablet 0 09/25/2020 08/08/2021 Discontinued Comment on above: Take 1 tablet by ricardo every 8 hours as needed. phentermine hydrochloride 37.5 mg oral tablet (6 sources) Sympathomimetic Amine Anorectic Start: 02-15-2024 End: 12-12-2024 take 1 tablet by mouth once daily Phentermine 37.5 mg tablet Discontinued 37.5 mg PO daily February 15, 2024 1:00am December 12, 2024 6:15am predniSONE 20 mg oral tablet (7 sources) Start: 12-03-2023 End: 02-15-2024 take 2 tablets by mouth once daily [...] of contraceptive pills] Episodic E Codes: Fall (5 sources) Fall; Translations: [Unspecified fall, initial encounter] 11-01-2024 Episodic Malaise and fatigue (3 sources) Fatigue; Translations: [Other fatigue] 11-16-2022 Episodic Nausea and vomiting (1 source) Nausea; Translations: [Nausea] Episodic Osteoarthritis (20 sources) Osteoarthritis; Translations: [Unspecified osteoarthritis, unspecified site] Onset: 07-02-2017 07-02-2017 Chronic Other aftercare (8 sources) Patient encounter status; Translations: [Other mcfp (current) drug therapy] Episodic Other ear and [...] Episodic Other non-traumatic joint disorders (3 sources) Pain in right shoulder; Translations: [Pain in joint, shoulder region] 08-04-2023 Episodic Other non-traumatic joint disorders (6 sources) Hip pain; Translations: [Pain in right hip] 02-15-2024 Episodic Other nutritional; endocrine; and metabolic disorders (20 sources) Body mass index 40+ - severely obese; Translations: [Morbid (severe) obesity due to excess calories] Onset: 07-02-2017 07-02-2017 Chronic Other screening for suspected conditions (not mental disorders or infectious disease) (3 sources) Encounter for screening for malignant neoplasm of cervix; Translations: [Encounter for screening mammogram for malignant neoplasm of breast] Onset: 05-24-2024 Episodic Other skin disorders (6 sources) Tongue swelling; Translations: [Localized swelling, mass and lump, head] 12-11-2023 Episodic Other upper respiratory disease (1 source) Congestion of nasal sinus; Translations: [Nasal congestion] 01-14-2024 Episodic Other upper respiratory infections (3 sources) Acute upper respiratory infection; Translations: [Acute upper respiratory infection, unspecified] 12-02-2022 Episodic Residual codes; unclassified (3 sources) H/O: Disorder; Translations: [Personal history of other specified conditions] 12-11-2023 Episodic Residual codes; unclassified (3 sources) History of angioedema; Translations: [Personal history of other specified conditions] 12-11-2023 Episodic Skin and subcutaneous tissue infections (2 sources) Infection of skin; Translations: [Local infection of the skin and subcutaneous tissue, unspecified] Episodic Spondylosis; intervertebral disc disorders; other back problems (1 source) Acute low back pain; Translations: [Acute left-sided low back pain without sciatica] Episodic Superficial injury; contusion (7 sources) Blister of hand without infection; Translations: [...] Resolved: 07-02-2017 07-02-2017 Chronic Sprains and strains (20 sources) Strain of neck muscle; Translations: [Strain of muscle, fascia and tendon at neck level, initial encounter] Onset: 06-14-2024 Episodic Results Test Name Value Interpretation Reference Range Facility PAP IG HPV HR APTIMAon 12-14 ADEQ Comment Normal . [facility] Comment on above: Order Comment: Speci men Comment: [id number] Specimen Comment: Source.............Cervix;Endocervix Specimen Comment: No. of containers..01 ThinPrep Vial Result Comment: Sati sfactory for evaluation. No endocervical component is identified. Performed By: #### L 7400.0377 #### [facility] [address] [place], [place], [id number] COMM . Normal . [facility] Comment on above: Order Comment: Speci men Comment: [id number] Specimen Comment: Source.............Cervix;Endocervix Specimen Comment: No. of containers..01 ThinPrep Vial Performed By: #### L [id number] #### [facility] [address] [place], [place], [id number] COMMENT Comment Normal . [facility] Comment on above: Order Comment: Speci men Comment: [id number] Specimen Comment: Source.............Cervix;Endocervix Specimen Comment: No. of containers..01 ThinPrep Vial Result Comment: This liquid based ThinPrep(R) pap test was screened with the use of an image guided system. Performed By: #### L 7400.0377 #### [facility] [address] [place], [place], [id number] DIAG Comment Normal . [facility] Comment on above: Order Comment: Speci men Comment: [id number] Specimen Comment: Source.............Cervix;Endocervix Specimen Comment: No. of containers..01 ThinPrep Vial Result Comment: NEGA TIVE FOR INTRAEPITHELIAL LESION OR MALIGNANCY. Performed By: #### L [id number] #### [facility] [address] [place], [address] HPV APTIMA, HR Negative Normal Negative [facility] Comment on above: Order Comment: Speci men Comment: [id number] Specimen Comment: Source.............Cervix;Endocervix Specimen Comment: No. of containers..01 ThinPrep Vial Result Comment: This nucleic acid amplification test detects fourteen high- risk HPV types (16,18,31,33,35,39,45,51,52,56,58,59,66,68) without differentiation. Performed at: [address] [id number] Personal Clothing Laundry Aide: Vernell Packer PhD, Phone: [phone] Performed at: [address] [id number] Personal Clothing Laundry Aide: Jackie Finn MD, Phone: [phone] Performed at: [address] [id number] Personal Clothing Laundry Aide: Jackie Finn MD, Phone: [phone] Performed By: #### L [id number] #### [facility] [address] [place], [place], [address] PAPSMR Comment Normal . [facility] Comment on above: Order Comment: Speci men Comment: [id number] Specimen Comment: Source.............Cervix;Endocervix Specimen Comment: No. of containers..01 ThinPrep Vial Result Comment: The Pap smear is a screening test designed to aid in the detection of premalignant and malignant conditions of the uterine cervix. It is not a diagnostic procedure and should not be used as the sole means of detecting cervical cancer. Both false-positive and false-negative reports do occur. Performed By: #### L [id number] #### [facility] [address] [place], [place], [address] PERFORM Comment Normal . [facility] Comment on above: Order Comment: Speci men Comment: [id number] Specimen Comment: Source.............Cervix;Endocervix Specimen Comment: No. of containers..01 ThinPrep Vial Result Comment: Jennifer Pompa, Radar Air Traffic Controller (ASCP) Performed By: #### L [id number] #### [facility] [address] [place], [place], [id number] Laboratory - Microbiology an d Antimicrobial susceptibilityOrdered By: Kunal Adams on 12-12-2024 SARS-CoV-2 (COVID-19) RNA VIVIAN+probe Ql (Unsp spec) Not detected [facility] No Panel InformationOrdered By: Kunal Adams on 12-12-2024 Influenza Types A,B Rapid (Clinic) Not detected [facility] Urgent Care Visit Reporton 0 12-12-2024 Urgent Care Visit Report [facility] [address], [address] [place], [place] [address] OFFICE VISIT Date of Service: 12/12/24 MR#: [id number] Acct: [id number] Name: MICHAELLE MAYS Rep #: [id number] : 1980 Provider: Kunal M Wyles, PA Age/Sex: 44/F Location: [facility] Status: Signed Intake Vital Signs 11/01/24 19:24 12/12/24 06:15 Height 5 ft 5 in 5 ft 5 in Weight: 260 lb BMI 43.2 BP 122/62 H Blood Pressure Location Lt brachial Position Sitting Pulse 108 H Pulse Source Monitor Temp 97.7 F L Temp Source Oral Pulse Oximetry (%) 98 Oxygen Delivery Method room air Intake Visit Reasons: FATIGUE, HEADACHE Chief Complaint: Headache Accompanied by: Self Allergies amoxicillin (From Augmentin) Allergy (Intermediate, Verified 12/12/24 06:09) Upset Stomach clavulanic acid (From Augmentin) Allergy (Intermediate, Verified 12/12/24 06:09) Upset Stomach HAROLDO Inhibitors Allergy (Unknown, Verified 12/12/24 06:09) PT UNSURE OF REACTION Medications ???Medication ???Instructions ???Recorded ???Confirmed ???Type doxepin 25 mg capsule 25 mg PO QHS 12/03/23 12/12/24 His tory montelukast 10 mg tablet 10 mg PO QHS 12/03/23 12/12/24 His tory (Singulair) cetirizine 10 mg tablet 10 mg PO QDAY 02/15/24 12/12/24 Hi story cyclobenzaprine 10 mg tablet 10 mg PO HS PRN muscle spasm #14 0 06/14/24 12/12/24 Rx tabs benzonatate 200 mg capsule 200 mg PO TID PRN cough #20 caps 0 12/12/24 12/12/24 Rx methylprednisolone 4 mg tablets in See Rx Instructions PO PER PKG D IR 12/12/24 12/12/24 Rx a dose pack (Medrol (Ifrah)) #21 tabs norgestrel 0.075 mg tablet (Opill) 1 tab PO QDAY 12/12/24 12/12/24 History Nurse's Note: Fatigued, feeling run down, headache, brain fog X 1 day. PFSH Medical History Thoracic myofascial strain Cervical strain Right hip pain Knee pain, right Angio-edema Surgical History Hx of cholecystectomy Social History household members: spouse Smoking Status: Former smoker HPI HPI Chief Complaint: Headache Details: MICHAELLE MAYS, is a 44 F who presents to the office today for [facility] evaluation in the [facility] for approximately 24-hour history of persistent fatigue and headache and occasional chills/cough; no complaints of fever, chills, myalgias, congestion/ runny nose, nausea, and diarrhea. Patient notes no complaints of chest pain or shortness of breath or dyspnea on exertion. Several close contacts recently dx???d w/ similar URI complaints. No itix-ezq-psnhodc taken to assist. No other associated symptoms and no other alleviating/aggravat ing factors. ROS Const Constitutional: No other (As above) Exam Const General: cooperative, healthy appearing and no acute distress Orientation: alert, awake HENMT Head: normal to inspection Ears: hearing grossly normal bilaterally, external ears normal, TM's normal bilaterally and EAC's normal Nose: external nose normal, nares normal, septum normal and no nasal discharge Face and sinus: normal facial [...] able to speak in complete sentences and no unsolicited cough during today's exam Auscultation: Bilateral: Clear to Auscultation Cardio Palpation: normal PMI Rate: tachycardic Rhythm: regular rhythm Heart Sounds: S1 normal, S2 normal Pulses: radial pulses present Skin General: no rashes or lesions noted Neuro General: patient alert, patient awake Cognition: normal cognition Speech: speech normal Psych Appearance: grossly normal Mental Status: mental status grossly normal Mood: congruent mood Affect: normal affect Speech and Movement: speech and movement normal Attitude: cooperative Diagnoses Contact with or exposure to other viral diseases Z20.828 URI (upper respiratory infection) J06.9 Assessment and Plan Assessment and Plan (1) Contact with or exposure to other viral diseases: Status: Acute (2) URI (upper respiratory infection): Status: Acute Plan: See POC results. Medrol and Benzonatate as prescribed today. Supportive measures as instructed today. Follow-up with PCP (more content not included)... Normal [facility] Cervical or vagninal specime n microscopic examination by cytology stain (reported asOrdered By: Nico Osuna on 12-09-2024 Cytology report Cyto stain Doc (Cvx/Vag) Comment . [facility] Comment on above: The Pap smear is a s creening test designed to aid in thedetection of premalignant and malignant conditions of theuterine cervix. It is not a diagnostic procedure andshould not be used as the sole means of detecting cervicalcancer. Both false-positive and false-negative reports dooccur. Detection in cervical specim en of any of human papilloma virus (HPV) 16, 18, 31, 33,Ordered By: Nico Osuna on 12-09-2024 HPV 16+18+31+33+35+39+45+51+5 2+56+58+59+66+68 DNA Probe+sig amp Ql (Cvx) Negative Negative [facility] Comment on above: This nucleic acid am plification test detects fourteen high-risk HPV types (16,18,31,33,35,39,45,51,52,56,58,59,66,68)without differentiation.Performed at: [address] [id number] Director: Vernell Packer PhD, Phone: [phone] at: [address] [id number] Director: Jackie Finn MD, Phone: [phone] at: [address] [id number] Director: Jackie Finn MD, Phone: [phone] Laboratory - CytologyOrdered By: Nico Osuna on 12-09-2024 Radar Air Traffic Controller Cyto stain Nom (Cvx/Vag) [ID] Comment . [facility] Comment on above: Karmen Pompa, Radar Air Traffic Controller (ASCP) Laboratory - Miscellaneous t estsOrdered By: Nico Osuna on 12-09-2024 Service comment (Unsp spec) [Interp] . . [facility] No Panel InformationOrdered By: Nico Osuna on 12-09-2024 Pap Smear Specimen Adequacy Comment . [facility] Comment on above: Satisfactory for jimmie luation. No endocervical component is identified. Duplex ultrasound of carotid artery reportOrdered By: Krish Durbin on 11-19-2024 Study report [facility] [address] [place] [address] Carotid Duplex Ultrasound 11/17/24 1458 MR#: [id number] Acct: [id number] Name: MICHAELLE MAYS Rep #:[id number] : 1980 44 From: Krish Durbin MD Attending Dr: Dr. Wild Rigigns MD S tatus: REG CLI Ordering Dr: [...] the left vertebral artery. Procedure Carotid Duplex 97011. This is a Carotid Duplex examination using B-mode, color flow and specral Doppler. Exam performed in department. VL/Carotid Duplex Ultrasound Interpretation Summary No significant atherosclerotic plaque or stenosis noted in the internal carotid arteries bilaterally. Flow within the vertebral arteries is antegrade bilaterally. Ordering Physician: Wild Riggins Referring Physician: Wild Riggins Performed By: Maggie Gomes Aniyah 11/19/242302 Date _ Krish Durbin MD CC: Dr. Wild Riggins MD ~ Date Dictated: 11/17/241457 Date Transcribed: 11/19/242302 Forensic Ballistics Expert: Signed [facility] Other Carotid Duplex Ultrasoundon 11-17-2024 Carotid Duplex Ultrasound [facility] Cardi[facility] Services [address] [place] [address] Carotid Duplex Ultrasound 11/17/24 1458 MR#: [id number] Acct: [id number] Name: MICHAELLE MAYS Rep #: [id number] : 1980 44 From: Krish Durbin MD Attending Dr: Dr. Wild Riggins MD Status: NAYE REYNOLDS Ordering Dr: Wild Riggins MD Date: 11/17/24 [...] the left vertebral artery. Procedure Carotid Duplex 79748. This is a Carotid Duplex examination using B-mode, color flow and specral Doppler. Exam performed in department. VL/Carotid Duplex Ultrasound Interpretation Summary No significant atherosclerotic plaque or stenosis noted in the internal carotid arteries bilaterally. Flow within the vertebral arteries is antegrade bilaterally. Ordering Physician: Wild Riggins Referring Physician: Wild Riggins Performed By: Maggie Gomes T 11/19/242302 Date Krish Durbin MD CC: Dr. Wild Riggins MD Date Dictated: 11/17/24 1458 Date Transcribed: 11/19/242302 Forensic Ballistics Expert: Signed Normal [facility] Brain/Head without Contrasto n 11-01-2024 Brain/Head without Contrast [facility] Imaging Services [address] [place] [address] Brain/Head without Contrast MR#: [id number] Acct: [id number] Name: MICHAELLE MAYS Rep #: [id number] : 1980 F 44 From: Leo Mcgovern MD PCP: Dr. Wild Riggins MD Status: [facility] Study: Brain/Head without Contrast Date of Exam: 10/20 06/13 Exam# [id number] Ordering Dr: Giulia Moore MD EXAM: CT [...] or cervical spine traumatic findings. Reading Location: [facility] CC: Dr. Wild Riggins MD; Dr. Giulia Moore MD Forensic Ballistics Expert: Signed Normal [facility] Emergency Department Summary on 11-01-2024 Emergency Department Summary [facility] Medical Records Department [address] [place] [address] Emergency Department Summary 11/01/24 MR#: [id number] Acct: [id number] Name: MICHAELLE MAYS Rep #: [id number] : 1980 44 From: Giulia Moore MD [...] reports she is having neck pain now. [facility] Medical History Thoracic myofascial strain Cervical strain [...] given Tylenol (more content not included)... Normal [facility] Spine Cervical without Contr ason 11-01-2024 Spine Cervical without Contras [facility] Imaging Services [address] [place], [place] [address] Spine Cervical without Contras MR#: [id number] Acct: [id number] Name: MICHAELLE MAYS Rep #: [id number] : 1980 F 44 From: Leo Mcgovern MD PCP: Dr. Wild Riggins MD Status: REG ER Study: Spine Cervical without Contras Date of Exam: 0 11/01/24 Exam# [id number] Ordering Dr: Giulia Moore MD EXAM: CT [...] or cervical spine traumatic findings. Reading Location: [facility] CC: Dr. Wild Riggins MD; Dr. Giulia Moore MD Forensic Ballistics Expert: Signed Normal [facility] Breast imaging reportOrdered By: Brittani Short on 10-10-2024 Study report [facility] Imaging Services [address] [place], [place] [address] SCRN MAMM (CAD)W/CHRISTOPHER BILAT MR#: [id number] Acct: [id number] Name: MICHAELLE MAYS Rep #: [id number] : 1980 F 44 From: Mati Ann MD PCP: Dr. Wild Riggins MD Status: REG CL I Study:SCRN MAMM (CAD)W/CHRISTOPHER BILAT Date of Exa m: 10/09/24 Exam# [id number] Ordering Dr: Nico Osuna IMMIGRATION COORDINATOR IMMIGRATION COORDINATOR-C EXAM: SCRN MAMM (CAD)W/CHRISTOPHER BILAT DATE: 10/09/2024 [...] be mailed to the patient. Reading Location: [id number] CC: Nico Osuna; Dr. Wild Riggins MD ~ Forensic Ballistics Expert: Signed [facility] SCRN MAMM (CAD)W/CHRISTOPHER BILATo n 10-09-2024 SCRN MAMM (CAD)W/CHRISTOPHER BILAT [facility] Imaging Services [address] [place], [place] [id number] SCRN MAMM (CAD)W/CHRISTOPHER BILAT MR#: [id number] Acct: [id number] Name: MICHAELLE MAYS Rep #: [id number] : 1980 F 44 From: Brittani Ugalde i, MD PCP: Dr. Wild Riggins MD Status: [facility] Study: SCRN MAMM (CAD)W/CHRISTOPHER BILAT Date of Exam: 09/20 04/15 Exam# [id number] Ordering Dr: Nico Osuna NP, NP EXAM: [...] CC: Nico Osuna; Dr. Wild Riggins MD Forensic Ballistics Expert: Signed Normal [facility] Laboratory - Microbiology an d Antimicrobial susceptibilityOrdered By: Kunal Adams on 06-27-2024 SARS-CoV-2 (COVID-19) RNA VIVIAN+probe Ql (Unsp spec) Not detected [facility] No Panel InformationOrdered By: Kunal Adams on 06-27-2024 Influenza Types A,B Rapid (Clinic) Not detected [facility] Urgent Care Visit Reporton 0 06-27-2024 Urgent Care Visit Report [facility] [address], [address] [place] [address] OFFICE VISIT Date of Service: 06/27/24 MR#: [id number] Acct: [id number] Name: MICHAELLE MAYS Rep #: [id number] : 1980 Provider: [employer] Age/Sex: 44/F Location: [facility] Status: Signed Intake Vital Signs 02/15/24 11:17 [...] in a while her stomach is upset. [facility] Medical History (Updated 06/14/24 @ 11:39 by [...] contacts recently dx???d w/ similar complaints. No thtc-egz-fyxpykx taken to assist. No other associated symptoms and no other alleviating/aggravat ing factors. ROS Const Constitutional: No other (As above) Exam Const General: cooperative, healthy appearing and no acute distress Orientation: alert, awake and oriented x3 HENLA Head: normal to inspection Ears: hearing grossly [...] normal Psych (more content not included)... Normal [facility] Urgent Care Visit Reporton 0 06-14-2024 Urgent Care Visit Report [facility] [address], [address] [place] [address] OFFICE VISIT Date of Service: 06/14/24 MR#: [id number] Acct: [id number] Name: MICHAELLE MAYS Sincere Rep #: [id number] : 1980 Provider: [employer] Age/Sex: 44/F Location: [facility] Status: Signed Intake Vital Signs 02/15/24 11:17 [...] PAIN Chief Complaint: right neck, right scapula Room Inspector Required: No Is patient in pain?: Yes [...] or mid low back pain upon questioning. Qign-lbt-hixtmmc Tylenol with minimal benefit, and states she is unable to take NSAIDs due to topical Voltaren use for her knees. No other associated symptoms and no other alleviating/aggravat ing factors. ROS Const Constitutional: No other (As above) Exam Const General: cooperative, healthy appearing and no acute distress Orientation: alert and awake HENLA Head: normal to inspection Ears: hearing grossly [...] the above. This note was generated with Jdguanjia dictation software. It may contain incorrect words, spelling, and punc (more content not included)... Normal [facility] PAP IG HPV HR APTIMAon 05-18 ADEQ Comment Normal . [facility] Comment on above: Order Comment: Speci men Comment: [id number] Specimen Comment: Source.............Cervix;Endocervix Specimen Comment: No. of containers..01 ThinPrep Vial Result Comment: Sati sfactory for evaluation. Endocervical and/or squamous metaplastic cells (endocervical component) are present. Performed By: #### L 7400.0377 #### [facility] Laboratory [address] [place], [address] COMM . Normal . [facility] Comment on above: Order Comment: Speci men Comment: [id number] Specimen Comment: Source.............Cervix;Endocervix Specimen Comment: No. of containers..01 ThinPrep Vial Performed By: #### L 7400.0377 #### [facility] [address] [place], [address] COMMENT Comment Normal . [facility] Comment on above: Order Comment: Speci men Comment: [id number] Specimen Comment: Source.............Cervix;Endocervix Specimen Comment: No. of containers..01 ThinPrep Vial Result Comment: This liquid based ThinPrep(R) pap test was screened with the use of an image guided system. Performed By: #### L 7400.0377 #### [facility] [address] [place], [place], [address] DIAG Comment Normal . [facility] Comment on above: Order Comment: Speci men Comment: [id number] Specimen Comment: Source.............Cervix;Endocervix Specimen Comment: No. of containers..01 ThinPrep Vial Result Comment: NEGA TIVE FOR INTRAEPITHELIAL LESION OR MALIGNANCY. Performed By: #### L 7400.0377 #### [facility] [address] [place], [address] HPV APTIMA, HR Negative Normal Negative [facility] Comment on above: Order Comment: Speci men Comment: [id number] Specimen Comment: Source.............Cervix;Endocervix Specimen Comment: No. of containers..01 ThinPrep Vial Result Comment: This nucleic acid amplification test detects fourteen high- risk HPV types (16,18,31,33,35,39,45,51,52,56,58,59,66,68) without differentiation. Performed at: [address] [id number] Personal Clothing Laundry Aide: Jackie Finn MD, Phone: [phone] Performed at: [address] [id number] Personal Clothing Laundry Aide: Jackie Finn MD, Phone: [phone] Performed By: #### L 7400.0377 #### [facility] [address] [place], [address] PAPSMR Comment Normal . [facility] Comment on above: Order Comment: Speci men Comment: [id number] Specimen Comment: Source.............Cervix;Endocervix Specimen Comment: No. of containers..01 ThinPrep Vial Result Comment: The Pap smear is a screening test designed to aid in the detection of premalignant and malignant conditions of the uterine cervix. It is not a diagnostic procedure and should not be used as the sole means of detecting cervical cancer. Both false-positive and false-negative reports do occur. Performed By: #### L 7400.0377 #### [facility] [address] [place], [place], [address] PERFORM Comment Normal . [facility] Comment on above: Order Comment: Speci men Comment: [id number] Specimen Comment: Source.............Cervix;Endocervix Specimen Comment: No. of containers..01 ThinPrep Vial Result Comment: Reyna Zuniga, Shot Man (ASCP) Performed By: #### L 7400.0377 #### [facility] [address] [place], [place], [address] ALLERGEN SKIN TEST-PENICILLI Non 03-02-2024 ANTIBIOTIC PERCUTANEOUS [...] = 0 mm F = 0 mm [facility] 3212-8526-93 Lot [id number] Exp 06/19/2025 PREPEN -(benzylpenicilloyl polylysine) full strength P: W = 0 mm F = 0mm ID: W = 0 mm F = 0 mm [facility] 73423-771-26 Lot [id number] Exp 06/19/25 HISTAMINE- positive control (Histamine base 6mg/ml)for Prick and 0.1 mg/ml for intradermal P: W = 9 mm F = 45+ mm [facility] C1 ESTERASE INHIB FUon 03-02 C1 ESTERASE INHIBITOR FUNCTION 106 % Normal >=41 [facility] Comment on above: Order Comment: Speci men Type: BLOOD SPECIMEN Ordering Facility: [facility] Address: [address] [place] [address] Result Comment: The concentration of functional C1 esterase inhibitor (C1-INH) is reported as the percentage of the mean level in normal specimens. Concentrations greater than or equal to 68 percent mean normal are considered normal. INTERPRETIVE INFORMATION: S-2-Vcgvrocs Inhib. Functional 68% or greater ........ Normal 41% - 67% ............. Indeterminate 40% or less ........... Abnormal Performed By: [facility] [address] [place] [address] Steel Checker: Henrry Piper MD, PhD CLIA Number: [id number] Performed By: #### 5 7021-8 #### [facility] CLIA [id number] [address] [place] [address] [place] C1 ESTERASE INHIBITon 2023 C1 ESTERASE INHIBIT 35 mg/dL Normal 21-38 [facility] Comment on above: Order Comment: Speci men Type: BLOOD SPECIMEN Ordering Facility: [facility] Address: [address] [place] [address] Result Comment: Perf ormed By: [facility] [employer] [address] [place] [address] Steel Checker: Henrry Piper MD, PhD CLIA Number: [id number] Performed By: #### C 1EST #### [facility] CLIA [id number] [address] [place] [address] C1Q COMPLEMENT PROTon 2023 C1Q COMPLEMENT PROTEIN 153 ug/mL Normal 109-242 [facility] Comment on above: Order Comment: Speci men Type: BLOOD SPECIMEN Ordering Facility: [facility] Address: [address] [place] [address] Result Comment: Perf ormed By: [facility] [employer] [address] [place] [address] Steel Checker: Henrry Piper MD, PhD CLIA Number: [id number] Performed By: #### 5 7021-8 #### [facility] CLIA [id number] [address] [place] [address] [place] C4 SerPl-mCncon 03-02-2024 Complement C4 [Mass/Vol] 29 mg/dL Normal 13-46 [facility] Comment on above: Order Comment: Speci men Type: BLOOD SPECIMEN Ordering Facility: [facility] Address: [address] [place] [address] Performed By: #### 2 4323-8, 4498-2 #### [facility] CLIA [id number] [address] [place] [address] [place] CBC W Auto Differential pane l (Bld)on 03-02-2024 Basophils (Bld) [#/Vol] 0.05 10*3/uL [facility] Basophils/100 WBC (Bld) 0.6 % [facility] Differential cell count method Nom (Bld) Auto [facility] Eosinophils (Bld) [#/Vol] 0.06 10*3/uL [facility] Eosinophils/100 WBC (Bld) 0.7 % [facility] Erythrocyte distribution width (RBC) [Ratio] 13.2 % 11.5 - 15.0 % [facility] Hematocrit (Bld) [Volume fraction] 45.2 % 36.0 - 46.0 % [facility] Hemoglobin (Bld) [Mass/Vol] 14.8 g/dL 11.5 - 15.5 g/dL [facility] Immature granulocytes (Bld) [#/Vol] [facility] Immature granulocytes/100 WBC (Bld) 0.2 % [facility] Lymphocytes (Bld) [#/Vol] 2.70 10*3/uL [facility] Lymphocytes/100 WBC (Bld) 31.8 % [facility] MCH (RBC) [Entitic mass] 32.2 pg 26. 0 - 34.0 pg [facility] MCHC (RBC) [Mass/Vol] 32.7 g/dL 30.5 - 36.0 g/dL [facility] MCV (RBC) [Entitic vol] 98.5 fL 80.0 - 100.0 fL [facility] Monocytes (Bld) [#/Vol] 0.62 10*3/uL [facility] Monocytes/100 WBC (Bld) 7.3 % C [facility] Neutrophils (Bld) [#/Vol] 5.03 10*3/uL [facility] Neutrophils/100 WBC (Bld) 59.4 % [facility] Nucleated RBC (Bld) [#/Vol] [facility] Nucleated RBC/100 WBC (Bld) [Ratio] 0.0 % /100 WBC [facility] Platelet mean volume (Bld) [Entitic vol] 10.6 fL 9.0 - 12.7 fL [facility] Platelets (Bld) [#/Vol] 370 10*3/uL [facility] RBC (Bld) [#/Vol] 4.59 10*6/uL 3.90 - 5.2 0 m/uL [facility] WBC (Bld) [#/Vol] 8.48 10*3/uL [facility] Basophils (Bld) [#/Vol] 0.05 10*3/uL Normal <0.11 [facility] Comment on above: Order Comment: Speci men Type: BLOOD SPECIMEN Ordering Facility: [facility] Address: [address] [place] [address] Performed By: #### 5 7021-8 #### [facility] CLIA [id number] [address] [place] [address] [place] Basophils/100 WBC (Bld) 0.6 % Normal [facility] Comment on above: Order Comment: Speci men Type: BLOOD SPECIMEN Ordering Facility: [facility] Address: [address] [place] [address] Performed By: #### 5 7021-8 #### [facility] CLIA [id number] [address] [place] [address] [place] Differential cell count method Nom (Bld) Auto Normal [facility] Comment on above: Order Comment: Speci men Type: BLOOD SPECIMEN Ordering Facility: [facility] Address: [address] [place] [address] Performed By: #### 5 7021-8 #### [facility] CLIA [id number] [address] [place] [address] [place] Eosinophils (Bld) [#/Vol] 0.06 10*3/uL Normal <0.46 [facility] Comment on above: Order Comment: Speci men Type: BLOOD SPECIMEN Ordering Facility: [facility] Address: [address] [place] [address] Performed By: #### 5 7021-8 #### [facility] CLIA [id number] [address] [place] [address] [place] Eosinophils/100 WBC (Bld) 0.7 % Normal [facility] Comment on above: Order Comment: Speci men Type: BLOOD SPECIMEN Ordering Facility: [facility] Address: [address] [place] [address] Performed By: #### 5 7021-8 #### [facility] CLIA [id number] [address] [place] [address] [place] Erythrocyte distribution width (RBC) [Ratio] 13.2 % Normal 11.5-15.0 [facility] Comment on above: Order Comment: Speci men Type: BLOOD SPECIMEN Ordering Facility: [facility] Address: [address] [place] [address] Performed By: #### 5 7021-8 #### [facility] CLIA [id number] [address] [place] [address] [place] Hematocrit (Bld) [Volume fraction] 45.2 % Normal 36.0-46.0 [facility] Comment on above: Order Comment: Speci men Type: BLOOD SPECIMEN Ordering Facility: [facility] Address: [address] [place] [address] Performed By: #### 5 7021-8 #### [facility] CLIA [id number] [address] [place] [address] [place] Hemoglobin (Bld) [Mass/Vol] 14.8 g/dL Normal 11.5-15.5 [facility] Comment on above: Order Comment: Speci men Type: BLOOD SPECIMEN Ordering Facility: [facility] Address: [address] [place] [address] Performed By: #### 5 7021-8 #### [facility] CLIA [id number] [address] [place] [address] [place] Immature granulocytes (Bld) [#/Vol] 10*3/uL Normal <0.10 [facility] Comment on above: Order Comment: Speci men Type: BLOOD SPECIMEN Ordering Facility: [facility] Address: [address] [place] [address] Performed By: #### 5 7021-8 #### [facility] CLIA [id number] [address] [place] [address] [place] Immature granulocytes/100 WBC (Bld) 0.2 % Normal [facility] Comment on above: Order Comment: Speci men Type: BLOOD SPECIMEN Ordering Facility: [facility] Address: [address] [place] [address] Performed By: #### 5 7021-8 #### [facility] CLIA [id number] [address] [place] [address] [place] Lymphocytes (Bld) [#/Vol] 2.70 10*3/uL Normal 1.00-4.0 0 [facility] Comment on above: Order Comment: Speci men Type: BLOOD SPECIMEN Ordering Facility: [facility] Address: [address] [place] [address] Performed By: #### 5 7021-8 #### [facility] CLIA [id number] [address] [place] [address] [place] Lymphocytes/100 WBC (Bld) 31.8 % Normal [facility] Comment on above: Order Comment: Speci men Type: BLOOD SPECIMEN Ordering Facility: [facility] Address: [address] [place] [address] Performed By: #### 5 7021-8 #### [facility] CLIA [id number] [address] [place] [address] [place] MCH (RBC) [Entitic mass] 32.2 pg Normal 26.0-34.0 [facility] Comment on above: Order Comment: Speci men Type: BLOOD SPECIMEN Ordering Facility: [facility] Address: [address] [place] [address] Performed By: #### 5 7021-8 #### [facility] CLIA [id number] [address] [place] [address] [place] MCHC (RBC) [Mass/Vol] 32.7 g/dL Normal 30.5-36.0 [facility] Comment on above: Order Comment: Speci men Type: BLOOD SPECIMEN Ordering Facility: [facility] Address: [address] [place] [address] Performed By: #### 5 7021-8 #### [facility] CLIA [id number] [address] [place] [address] [place] MCV (RBC) [Entitic vol] 98.5 fL Normal 80.0-100.0 [facility] Comment on above: Order Comment: Speci men Type: BLOOD SPECIMEN Ordering Facility: [facility] Address: [address] [place] [address] Performed By: #### 5 7021-8 #### [facility] CLIA [id number] [address] [place] [address] [place] Monocytes (Bld) [#/Vol] 0.62 10*3/uL Normal <0.87 [facility] Comment on above: Order Comment: Speci men Type: BLOOD SPECIMEN Ordering Facility: [facility] Address: [address] [place] [address] Performed By: #### 5 7021-8 #### [facility] CLIA [id number] [address] [place] [address] [place] Monocytes/100 WBC (Bld) 7.3 % Normal [facility] Comment on above: Order Comment: Speci men Type: BLOOD SPECIMEN Ordering Facility: [facility] Address: [address] [place] [address] Performed By: #### 5 7021-8 #### [facility] CLIA [id number] [address] [place] [address] [place] Neutrophils (Bld) [#/Vol] 5.03 10*3/uL Normal 1.45-7.5 0 [facility] Comment on above: Order Comment: Speci men Type: BLOOD SPECIMEN Ordering Facility: [facility] Address: [address] [place] [address] Performed By: #### 5 7021-8 #### [facility] CLIA [id number] [address] [place] [address] [place] Neutrophils/100 WBC (Bld) 59.4 % Normal [facility] Comment on above: Order Comment: Speci men Type: BLOOD SPECIMEN Ordering Facility: [facility] Address: [address] [place] [address] Performed By: #### 5 7021-8 #### [facility] CLIA [id number] [address] [place] [address] [place] Nucleated RBC (Bld) [#/Vol] 10*3/uL Normal <0.01 [facility] Comment on above: Order Comment: Speci men Type: BLOOD SPECIMEN Ordering Facility: [facility] Address: [address] [place] [address] Performed By: #### 5 7021-8 #### [facility] CLIA [id number] [address] [place] [address] [place] Nucleated RBC/100 WBC (Bld) [Ratio] 0.0 /100 WBC Normal [facility] Comment on above: Order Comment: Speci men Type: BLOOD SPECIMEN Ordering Facility: [facility] Address: [address] [place] [address] Performed By: #### 5 7021-8 #### [facility] CLIA [id number] [address] [place] [address] [place] Platelet mean volume (Bld) [Entitic vol] 10.6 fL Normal 9.0-12.7 [facility] Comment on above: Order Comment: Speci men Type: BLOOD SPECIMEN Ordering Facility: [facility] Address: [address] [place] [address] Performed By: #### 5 7021-8 #### [facility] CLIA [id number] [address] [place] [address] [place] Platelets (Bld) [#/Vol] 370 10*3/uL Normal 150-400 [facility] Comment on above: Order Comment: Speci men Type: BLOOD SPECIMEN Ordering Facility: [facility] Address: [address] [place] [address] Performed By: #### 5 7021-8 #### [facility] CLIA [id number] [address] [place] [address] [place] RBC (Bld) [#/Vol] 4.59 10*6/uL Normal 3.90-5.20 [facility] Comment on above: Order Comment: Speci men Type: BLOOD SPECIMEN Ordering Facility: [facility] Address: [address] [place] [address] Performed By: #### 5 7021-8 #### [facility] CLIA [id number] [address] [place] [address] [place] WBC (Bld) [#/Vol] 8.48 10*3/uL Normal 3.70-11.00 [facility] Comment on above: Order Comment: Speci men Type: BLOOD SPECIMEN Ordering Facility: [facility] Address: [address] [place] [address] Performed By: #### 5 7021-8 #### [facility] [place] [id number] [address] [place] [address] [place] CNOVon 03-02-2024 CNOV Office Visit (ALLEST) MICHAELLE MAYS ([id number]) 1980 F Date Time Provider Department 03/02/24 [...] told she had to get it at [facility] and was not able to do it. [...] from dox (more content not included)... Normal [facility] metabolic 2000 panelon 03-02-2024 Albumin [Mass/Vol] 4.1 g/dL Normal 3.9-4.9 [facility] Comment on above: Order Comment: Speci men Type: BLOOD SPECIMEN Ordering Facility: [facility] Address: [address] [place] [address] Performed By: #### 2 4323-8, 4498-2 #### [facility] CLIA [id number] [address] [place] [address] [place] ALP [Catalytic activity/Vol] 87 U/L Normal 34-123 [facility] Comment on above: Order Comment: Speci men Type: BLOOD SPECIMEN Ordering Facility: [facility] Address: [address] [place] [address] Performed By: #### 2 4323-8, 4498-2 #### [facility] CLIA [id number] [address] [place] [address] [place] ALT [Catalytic activity/Vol] 25 U/L Normal 7-38 [facility] Comment on above: Order Comment: Speci men Type: BLOOD SPECIMEN Ordering Facility: [facility] Address: [address] [place] [address] Performed By: #### 2 4323-8, 4498-2 #### [facility] CLIA [id number] [address] [place] [address] [place] Anion gap [Moles/Vol] 11 mmol/L Normal 8-15 [facility] Comment on above: Order Comment: Speci men Type: BLOOD SPECIMEN Ordering Facility: [facility] Address: [address] [place] [address] Performed By: #### 2 4323-8, 4498-2 #### [facility] CLIA [id number] [address] [place] [address] [place] AST [Catalytic activity/Vol] 23 U/L Normal 13-35 [facility] Comment on above: Order Comment: Speci men Type: BLOOD SPECIMEN Ordering Facility: [facility] Address: [address] [place] [address] Performed By: #### 2 4323-8, 4498-2 #### [facility] CLIA [id number] [address] [place] [address] [place] Bilirubin [Mass/Vol] 0.3 mg/dL Normal 0.2-1.3 [facility] Comment on above: Order Comment: Speci men Type: BLOOD SPECIMEN Ordering Facility: [facility] Address: [address] [place] [address] Performed By: #### 2 4323-8, 4498-2 #### [facility] CLIA [id number] [address] [place] [address] [place] Calcium [Mass/Vol] 9.1 mg/dL Normal 8.5-10.2 [facility] Comment on above: Order Comment: Speci men Type: BLOOD SPECIMEN Ordering Facility: [facility] Address: [address] [place] [address] Performed By: #### 2 4323-8, 4498-2 #### [facility] CLIA [id number] [address] [place] [address] [place] Chloride [Moles/Vol] 103 mmol/L Normal 98-107 [facility] Comment on above: Order Comment: Speci men Type: BLOOD SPECIMEN Ordering Facility: [facility] Address: [address] [place] [address] Performed By: #### 2 4323-8, 4498-2 #### [facility] CLIA [id number] [address] [place] [address] [place] CO2 [Moles/Vol] 28 mmol/L Normal 22-30 [facility] Comment on above: Order Comment: Speci men Type: BLOOD SPECIMEN Ordering Facility: [facility] Address: [address] [place] [address] Performed By: #### 2 4323-8, 4498-2 #### [facility] CLIA [id number] [facility] [place] [address] [place] Creatinine [Mass/Vol] 0.89 mg/dL Normal 0.58-0.96 [facility] Comment on above: Order Comment: Octavio boateng Type: BLOOD SPECIMEN Ordering Facility: [facility] Address: [address] [place] [address] Performed By: #### 2 4323-8, 4498-2 #### [facility] CLIA [id number] [address] [place] [address] [place] Creatinine and Glomerular filtration rate.predicted panel (S/P/Bld) 82 mL/min/1.73m??? Normal >=60 [facility] Comment on above: Order Comment: Octavio boateng Type: BLOOD SPECIMEN Ordering Facility: [facility] Address: [address] [place] [address] Result Comment: Dinora mated Glomerular Filtration Rate [...] GFR. Performed By: #### 2 4323-8, 4498-2 #### [facility] CLIA [id number] [address] [place] [address] [place] Glucose [Mass/Vol] 72 mg/dL Low 74-99 [facility] Comment on above: Order Comment: Octavio boateng Type: BLOOD SPECIMEN Ordering Facility: [facility] Address: [address] [place] [address] Result Comment: The [place] [employer] (ADA) provides guidance for cutoff [...] Standards of Medical Care in Diabetes 2016, [place] [employer]. Diabetes Care. 2016.39(Suppl 1). Performed By: #### 2 4323-8, 4498-2 #### [facility] CLIA [id number] [address] [place] [address] [place] Potassium [Moles/Vol] 4.0 mmol/L Normal 3.7-5.1 [facility] Comment on above: Order Comment: Octavio boateng Type: BLOOD SPECIMEN Ordering Facility: [facility] Address: [address] [place] [address] Performed By: #### 2 4323-8, 4498-2 #### [facility] CLIA [id number] [address] [place] [address] [place] Protein [Mass/Vol] 7.0 g/dL Normal 6.3-8.0 [facility] Comment on above: Order Comment: Octavio boateng Type: BLOOD SPECIMEN Ordering Facility: [facility] Address: [address] [place] [address] Performed By: #### 2 4323-8, 4498-2 #### [facility] CLIA [id number] [address] [place] [address] [place] Sodium [Moles/Vol] 142 mmol/L Normal 136-144 [facility] Comment on above: Order Comment: Edui men Type: BLOOD SPECIMEN Ordering Facility: [facility] Address: [address] [place] [address] Performed By: #### 2 4323-8, 4498-2 #### [facility] CLIA [id number] [address] [place], [place] [address] [place] Urea nitrogen [Mass/Vol] 10 mg/dL Normal 7-21 [facility] Comment on above: Order Comment: Speci men Type: BLOOD SPECIMEN Ordering Facility: [facility] Address: [address] [place] [address] Performed By: #### 2 4323-8, 4498-2 #### [facility] CLIA [id number] [address] [place] [address] [place] INGESTION CHALLENGE TESTon [...] 1635 in stable condition with no concerns. [facility] No Panel InformationOrdered By: Nidia Hurst on 03-02-2024 [facility] Urgent Care Visit Reporton 1 04-16-2023 Urgent Care Visit Report [facility] [address], [address] [place] [address] OFFICE VISIT Date of Service: 02/15/24 MR#: [id number] Acct: [id number] Name: MICHAELLE MAYS Rep #: [id number] : 1980 Provider: SHIN Power Age/Sex: 43/F Location: [facility] Status: Signed Intake Vital Signs 12/03/23 02:42 [...] Chief Complaint: Right knee pain without injury Room Inspector Required: No Is patient in pain?: Yes [...] at work yesterday. previous xrays completed at [facility] confirmed bone on bone. Has recently restablished with Dr. Riggins and placed on medication for weight loss to help alleviate right hip and knee pain and to avoid surgery. Here today requiring work note. [facility] Medical History (Updated 02/15/24 @ 11:32 by Kunal MELISSA, SHIN) Right hip pain Knee pain, right Angio-edema Surgical History Hx of cholecystectomy Social History Smoking Status: Former smoker HPI HPI Chief Complaint: Right knee pain without injury Details: MICHAELLE MAYS, is a 43 F who presents to the office today for evaluation due to chronic right hip/knee pain, stating she was told by her orthopod that she has, qqre-jx-iumf joints to both knees. No bilateral ankle complaints or low back pain. No caudal/radicular complaints. No abdominal pain/complaints. Topical Voltaren as well as oral ibuprofen and acetaminophen taken with minimal to no assist. No recent history of trauma to the same. No other associated symptoms and no other alleviating/aggravat ing factors. ROS Const Constitutional: Positive for other [...] radiographs upon offering. Continue Voltaren topical, acetaminophen [id number]-[id number] as needed. Cyclobenzaprine as prescribed today. Work excuse offered at patient request. Follow-up with PCP or orthopedics as previously arranged, ED sooner should symptoms worsen or any other concerns develop. Patient states acknowledging understanding of the above. This note was generated with [employer] software. It nandini (more content not included)... Normal [facility] HIP, UNI W/ Pelvis 2-3 Views on 02-10-2024 HIP, UNI W/ Pelvis 2-3 Views [facility] [address] [place] [address] [place], [place] [id number] HIP, UNI W/ Pelvis 2-3 Views MR#: [id number] Acct: [id number] Name: MICHAELLE MAYS Rep #: [id number] : 1980 F 43 From: John Murphy MD PCP: Dr. Wild Riggins MD Status: REG CLI Study: HIP, UNI W/ Pelvis 2-3 Views Date of Exam: Exam# [id number] Ordering Dr: Wild Riggins MD [id number] STUDY: X-RAY - PELVIS AND RIGHT HIP [...] 22:58 EST Reading Location ID and State: [facility] / [place] Tel , Service support , CC: Dr. Wild Riggins MD Forensic Ballistics Expert: Signed Normal [facility] Estrogen, Total, Serumon ESTROGENS,TOTAL 45 pg/mL Normal . [facility] Comment on above: Order Comment: Order Date: 01/25/24Order Info: 2254-1 - ESTN Result Comment: Prep ubertal < 40 Female Cycle: 1-10 Days 16 - 328 11-20 Days 34 - 501 21-30 Days 48 - 350 Post-Menopausal 40 - 244 Performed at: [facility] [id number] [employer] Aide: Cara Lopez MD, Phone: [phone] Performed By: #### L 506.1000, L501.9520, L100.0100, L500.4100, L500.4050, L3100.5055, L3400.0200 ####[facility] [address] [place], [address] Hemoglobin A1con 02-01-2024 HbA1c (Bld) [Mass fraction] 5.7 % High 3.8-5.6 [facility] Comment on above: Order Comment: FLORA Olivera ADD A1C TO BLOOD DRAWN 01/31/24 PER Result Comment: Norm al < 5.7 % Prediabetic 5.7 - 6.4 % Diabetic >or= 6.5 % Please note range changes. Performed By: #### L 501.9985, L801.2600 #### [facility] [address] [place], [place], [id number] PROGESTERONE 4317on 02-01-20 PROGESTERONE 0.3 ng/mL Normal . [facility] Comment on above: Order Comment: N Result Comment: Foll icular phase 0.1 - 0.9 Luteal phase 1.8 - 23.9 Ovulation phase 0.1 - 12.0 First trimester 11.0 - 44.3 Second trimester 25.4 - 83.3 Third trimester 58.7 - 214.0 Postmenopausal 0.0 - 0.1 Performed at: - [facility] [address] [id number] [employer] Aide: Demarcus Zamora PhD, Phone: [phone] Performed By: #### L 501.9985, L809.2608 #### [facility] [address] [place], [place], [phone] CBC W/Diff, Automatedon 01-20 Absolute Lymph 2.64 X10 3/uL Normal 0.83-4.51 [facility] Comment on above: Order Comment: Order Date: 01/25/24 Order Info: 0184-1 - CBCD Performed By: #### L 506.1000, L501.9520, L100.0100, L500.4100, L500.4050, L3100.5055, L3400.0200 #### [facility] [address] [place], [address] Absolute Neut 6.8 X10 3/uL Normal 2.0-7.7 [facility] Comment on above: Order Comment: Order Date: 01/25/24 Order Info: 0184-1 - CBCD Performed By: #### L 506.1000, L501.9520, L100.0100, L500.4100, L500.4050, L3100.5055, L3400.0200 #### [facility] [address] [place], [place], [phone] (179) Basophils/100 WBC (Bld) 0.7 % Normal 0-1 [facility] Comment on above: Order Comment: Order Date: 01/25/24 Order Info: 0184-1 - CBCD Performed By: #### L 506.1000, L501.9520, L100.0100, L500.4100, L500.4050, L3100.5055, L3400.0200 #### [facility] [address] [place], [address] Eosinophils/100 WBC (Bld) 2.1 % Normal 0-5 [facility] Comment on above: Order Comment: Order Date: 01/25/24 Order Info: 0184-1 - CBCD Performed By: #### L 506.1000, L501.9520, L100.0100, L500.4100, L500.4050, L3100.5055, L3400.0200 #### [facility] [address] [place], [address] Erythrocyte distribution width (RBC) [Ratio] 13.0 % Normal 11.6-14.6 [facility] Comment on above: Order Comment: Order Date: 01/25/24 Order Info: 0184-1 - CBCD Performed By: #### L 506.1000, L501.9520, L100.0100, L500.4100, L500.4050, L3100.5055, L3400.0200 #### [facility] [address] [place], [address] Hematocrit (Bld) [Volume fraction] 45.3 % Normal 37-47 [facility] Comment on above: Order Comment: Order Date: 01/25/24 Order Info: 0184-1 - CBCD Performed By: #### L 506.1000, L501.9520, L100.0100, L500.4100, L500.4050, L3100.5055, L3400.0200 #### [facility] [address] [place], [phone] ([address]) Hemoglobin (Bld) [Mass/Vol] 14.8 g/dL Normal 12.0-15.0 [facility] Comment on above: Order Comment: Order Date: 01/25/24 Order Info: 0184-1 - CBCD Performed By: #### L 506.1000, L501.9520, L100.0100, L500.4100, L500.4050, L3100.5055, L3400.0200 #### [facility] [address] [place], [address] IG% 0.400 Normal 0.0-0.9 [facility] Comment on above: Order Comment: Order Date: 01/25/24 Order Info: 0184-1 - CBCD Result Comment: IG% - Immature Granulocytes (promyelocytes, myelocytes and metamyelocytes) > 1% indicates that a LEFT SHIFT is Present. Performed By: #### L 506.1000, L501.9520, L100.0100, L500.4100, L500.4050, L3100.5055, L3400.0200 #### [facility] [address] [place], [place], [phone] (207) Lymphocytes/100 WBC (Bld) 25.2 % Normal 19-41 [facility] Comment on above: Order Comment: Order Date: 01/25/24 Order Info: 0184-1 - CBCD Performed By: #### L 506.1000, L501.9520, L100.0100, L500.4100, L500.4050, L3100.5055, L3400.0200 #### [facility] [address] [place], [address] MCH (RBC) [Entitic mass] 31.4 pg Normal 27.0-32.0 [facility] Comment on above: Order Comment: Order Date: 01/25/24 Order Info: 0184-1 - CBCD Performed By: #### L 506.1000, L501.9520, L100.0100, L500.4100, L500.4050, L3100.5055, L3400.0200 #### [facility] [address] [place], [place], [phone] MCHC (RBC) [Mass/Vol] 32.7 g/dL Normal 32-36 [facility] Comment on above: Order Comment: Order Date: 01/25/24 Order Info: 0184-1 - CBCD Performed By: #### L 506.1000, L501.9520, L100.0100, L500.4100, L500.4050, L3100.5055, L3400.0200 #### [facility] [address] [place], [place], [phone] MCV (RBC) [Entitic vol] 96.0 fL Normal 81-99 [facility] Comment on above: Order Comment: Order Date: 01/25/24 Order Info: 0184-1 - CBCD Performed By: #### L 506.1000, L501.9520, L100.0100, L500.4100, L500.4050, L3100.5055, L3400.0200 #### [facility] [address] [place], [place], [phone] (151) Monocytes/100 WBC (Bld) 6.7 % Normal 0-10 [facility] Comment on above: Order Comment: Order Date: 01/25/24 Order Info: 0184-1 - CBCD Performed By: #### L 506.1000, L501.9520, L100.0100, L500.4100, L500.4050, L3100.5055, L3400.0200 #### [facility] [address] [place], [address] Neutrophils/100 WBC (Bld) 64.9 % Normal 47-70 [facility] Comment on above: Order Comment: Order Date: 01/25/24 Order Info: 0184-1 - CBCD Performed By: #### L 506.1000, L501.9520, L100.0100, L500.4100, L500.4050, L3100.5055, L3400.0200 #### [facility] [address] [place], [address] Nucleated RBC (Bld) [#/Vol] 0 10*3/uL Normal 0-5 [facility] Comment on above: Order Comment: Order Date: 01/25/24 Order Info: 0184-1 - CBCD Performed By: #### L 506.1000, L501.9520, L100.0100, L500.4100, L500.4050, L3100.5055, L3400.0200 #### [facility] [address] [place], [address] Platelet mean volume (Bld) [Entitic vol] 10.0 fL Normal 6.2-12.0 [facility] Comment on above: Order Comment: Order Date: 01/25/24 Order Info: 0184-1 - CBCD Performed By: #### L 506.1000, L501.9520, L100.0100, L500.4100, L500.4050, L3100.5055, L3400.0200 #### [facility] [address] [place], [address] Platelets (Bld) [#/Vol] 376 10*3/uL Normal 150-450 [facility] Comment on above: Order Comment: Order Date: 01/25/24 Order Info: 0184-1 - CBCD Performed By: #### L 506.1000, L501.9520, L100.0100, L500.4100, L500.4050, L3100.5055, L3400.0200 #### [facility] [address] [place], [address] RBC (Bld) [#/Vol] 4.72 10*6/uL Normal 4.2-5.4 [facility] Comment on above: Order Comment: Order Date: 01/25/24 Order Info: 0184-1 - CBCD Performed By: #### L 506.1000, L501.9520, L100.0100, L500.4100, L500.4050, L3100.5055, L3400.0200 #### [facility] [address] [place], [address] RDW SD 46.2 fl High 35.1-43.9 [facility] Comment on above: Order Comment: Order Date: 01/25/24 Order Info: 0184-1 - CBCD Performed By: #### L 506.1000, L501.9520, L100.0100, L500.4100, L500.4050, L3100.5055, L3400.0200 #### [facility] [address] [place], [address] WBC (Bld) [#/Vol] 10.5 10*3/uL Normal 4.4-11.0 [facility] Comment on above: Order Comment: Order Date: 01/25/24 Order Info: 0184-1 - CBCD Performed By: #### L 506.1000, L501.9520, L100.0100, L500.4100, L500.4050, L3100.5055, L3400.0200 #### [facility] [address] [place], [address] Comprehensive Metabolic Prof ilon 01-31-2024 Albumin [Mass/Vol] 3.2 g/dL Normal 3.2-5.0 [facility] Comment on above: Order Comment: Order Date: 01/25/24Order Info: 86-1 - CMPOrder Info: [id number] - LIPIDOrder Info: 6-3 - TSHOrder Info: [id number] - FSHLH Performed By: #### L 506.1000, L501.9520, L100.0100, L500.4100, L500.4050, L3100.5055, L3400.0200 ####[facility] [address] [place], [address] Albumin/Globulin [Mass ratio] 0.8 {ratio} Low 0.9-2.4 [facility] Comment on above: Order Comment: Order Date: 01/25/24Order Info: 785- - CMPOrder Info: [id number] - LIPIDOrder Info: 63 - TSHOrder Info: [id number] - FSHLH Performed By: #### L 506.1000, L501.9520, L100.0100, L500.4100, L500.4050, L3100.5055, L3400.0200 ####[facility] [address] [place], [address] ALK P 80 U/L Normal 45-117 [facility] Comment on above: Order Comment: Order Date: 01/25/24Order Info: 86-1 - CMPOrder Info: [id number] - LIPIDOrder Info: 6-3 - TSHOrder Info: [id number] - FSHLH Performed By: #### L 506.1000, L501.9520, L100.0100, L500.4100, L500.4050, L3100.5055, L3400.0200 ####[facility] [address] [place], [address] ALT [Catalytic activity/Vol] 19 U/L Normal 13-56 [facility] Comment on above: Order Comment: Order Date: 01/25/24Order Info: 785-1 - CMPOrder Info: [id number] - LIPIDOrder Info: 3 - TSHOrder Info: 53-1 - FSHLH Performed By: #### L 506.1000, L501.9520, L100.0100, L500.4100, L500.4050, L3100.5055, L3400.0200 ####[facility] [address] [place], [address] AST [Catalytic activity/Vol] 13 U/L Low 15-37 [facility] Comment on above: Order Comment: Order Date: 01/25/24Order Info: [id number] - CMPOrder Info: - LIPIDOrder Info: [id number] - TSHOrder Info: 552-03 - FSHLH Performed By: #### L 506.1000, L501.9520, L100.0100, L500.4100, L500.4050, L3100.5055, L3400.0200 ####[facility] [address] [place], [address] Bilirubin [Mass/Vol] 0.30 mg/dL Normal 0.20-1.00 [facility] Comment on above: Order Comment: Order Date: 01/25/24Order Info: [id number] - CMPOrder Info: - LIPIDOrder Info: [id number] - TSHOrder Info: 53- - FSHLH Result Comment: For patients on eltrombopag therapy, use of Dimension [place] TBIL is not recommended. Performed By: #### L 506.1000, L501.9520, L100.0100, L500.4100, L500.4050, L3100.5055, L3400.0200 ####[facility] [address] [place], [address] BUN/CRE 14.3 RATIO Normal 10-20 [facility] Comment on above: Order Comment: Order Date: 01/25/24Order Info: 86-1 - CMPOrder Info: [id number] - LIPIDOrder Info: [id number] - TSHOrder Info: 53-1 - FSHLH Performed By: #### L 506.1000, L501.9520, L100.0100, L500.4100, L500.4050, L3100.5055, L3400.0200 ####[facility] [address] [place], [address] CA,Total 8.6 mg/dL Normal 8.5-10.1 [facility] Comment on above: Order Comment: Order Date: 01/25/24Order Info: 86- - CMPOrder Info: [id number] - LIPIDOrder Info: [id number] - TSHOrder Info: 53- - FSHLH Performed By: #### L 506.1000, L501.9520, L100.0100, L500.4100, L500.4050, L3100.5055, L3400.0200 ####[facility] [address] [place], [address] Chloride [Moles/Vol] 109 mmol/L High 98-107 [facility] Comment on above: Order Comment: Order Date: 01/25/24Order Info: 785-1 - CMPOrder Info: [id number] - LIPIDOrder Info: [id number] - TSHOrder Info: 53-1 - FSHLH Performed By: #### L 506.1000, L501.9520, L100.0100, L500.4100, L500.4050, L3100.5055, L3400.0200 ####[facility] [address] [place], [address] CO2 [Moles/Vol] 24.0 mmol/L Normal 21.0-32.0 [facility] Comment on above: Order Comment: Order Date: 01/25/24Order Info: 86-1 - CMPOrder Info: [id number] - LIPIDOrder Info: [id number] - TSHOrder Info: 0553- - FSHLH Performed By: #### L 506.1000, L501.9520, L100.0100, L500.4100, L500.4050, L3100.5055, L3400.0200 ####[facility] [address] [place], [place], [phone] Creatinine [Mass/Vol] 1.05 mg/dL High 0.55-1.02 [facility] Comment on above: Order Comment: Order Date: 01/25/24Order Info: 86- - CMPOrder Info: [id number] - LIPIDOrder Info: 3 - TSHOrder Info: 552-03 - FSHLH Result Comment: The validity of the calculated GFR GFRAA in patients over 70 years has not been determined. Clinical correlation is essential. Performed By: #### L 506.1000, L501.9520, L100.0100, L500.4100, L500.4050, L3100.5055, L3400.0200 ####[facility] [address] [place], [place], [phone] EST GFR - AA 73 mL/min Normal >60 [facility] Comment on above: Order Comment: Order Date: 01/25/24Order Info: 785- - CMPOrder Info: [id number] - LIPIDOrder Info: [id number] - TSHOrder Info: 552-03 - FSHLH Result Comment: Afri can [place] GFR Calc Performed By: #### L 506.1000, L501.9520, L100.0100, L500.4100, L500.4050, L3100.5055, L3400.0200 ####[facility] [address] [place], [place], [phone] GAP 7 Normal 5-15 [facility] Comment on above: Order Comment: Order Date: 01/25/24Order Info: 86-1 - CMPOrder Info: [id number] - LIPIDOrder Info: 63 - TSHOrder Info: 552-03 - FSHLH Performed By: #### L 506.1000, L501.9520, L100.0100, L500.4100, L500.4050, L3100.5055, L3400.0200 ####[facility] [address] [place], [address] GFR/1.73 sq M.predicted among non-blacks MDRD (S/P/Bld) [Vol rate/Area] 60 mL/min/{1.73_m2} Normal >60 [facility] Comment on above: Order Comment: Order Date: 01/25/24Order Info: 785- - CMPOrder Info: [id number] - LIPIDOrder Info: [id number] - TSHOrder Info: [id number] - FSHLH Result Comment: Non- GFR Calc Performed By: #### L 506.1000, L501.9520, L100.0100, L500.4100, L500.4050, L3100.5055, L3400.0200 ####[facility] [address] [place], [address] Globulin (S) [Mass/Vol] 4.2 g/dL Normal 2.2-4.2 [facility] Comment on above: Order Comment: Order Date: 01/25/24Order Info: 785- - CMPOrder Info: [id number] - LIPIDOrder Info: 6-3 - TSHOrder Info: [id number] - FSHLH Performed By: #### L 506.1000, L501.9520, L100.0100, L500.4100, L500.4050, L3100.5055, L3400.0200 ####[facility] [address] [place], [address] Glucose [Mass/Vol] 121 mg/dL High 74-106 [facility] Comment on above: Order Comment: Order Date: 01/25/24Order Info: 785-1 - CMPOrder Info: [id number] - LIPIDOrder Info: [id number] - TSHOrder Info: 0553-1 - FSHLH Result Comment: Fast ing Glucose result from 100 to 125 mg/dL suggests IMPAIRED HOMEOSTASIS per A.D.A. criteria. Performed By: #### L 506.1000, L501.9520, L100.0100, L500.4100, L500.4050, L3100.5055, L3400.0200 ####[facility] [address] [place], [address] Potassium [Moles/Vol] 3.7 mmol/L Normal 3.5-5.1 [facility] Comment on above: Order Comment: Order Date: 01/25/24Order Info: 86-1 - CMPOrder Info: [id number] - LIPIDOrder Info: [id number] - TSHOrder Info: [id number] - FSHLH Performed By: #### L 506.1000, L501.9520, L100.0100, L500.4100, L500.4050, L3100.5055, L3400.0200 ####[facility] [address] [place], [address] Sodium [Moles/Vol] 139 mmol/L Normal 136-145 [facility] Comment on above: Order Comment: Order Date: 01/25/24Order Info: 785-1 - CMPOrder Info: [id number] - LIPIDOrder Info: 3 - TSHOrder Info: [id number] - FSHLH Performed By: #### L 506.1000, L501.9520, L100.0100, L500.4100, L500.4050, L3100.5055, L3400.0200 ####[facility] [address] [place], [address] T PROT 7.4 g/dL Normal 6.4-8.2 [facility] Comment on above: Order Comment: Order Date: 01/25/24Order Info: 86-1 - CMPOrder Info: [id number] - LIPIDOrder Info: 6-3 - TSHOrder Info: [id number] - FSHLH Performed By: #### L 506.1000, L501.9520, L100.0100, L500.4100, L500.4050, L3100.5055, L3400.0200 ####[facility] [address] [place], [place], [phone]) Urea nitrogen [Mass/Vol] 15 mg/dL Normal 7-18 [facility] Comment on above: Order Comment: Order Date: 01/25/24Order Info: [id number] - CMPOrder Info: [id number] - LIPIDOrder Info: 6-3 - TSHOrder Info: [id number] - FSHLH Performed By: #### L 506.1000, L501.9520, L100.0100, L500.4100, L500.4050, L3100.5055, L3400.0200 ####[facility] [address] [place], [address](761) FSH and LHon 01-31-2024 FSH 22.7 mIU/mL Normal [facility] Comment on above: Order Comment: Order Date: 01/25/24Order Info: 785-1 - CMPOrder Info: [id number] - LIPIDOrder Info: 3 - TSHOrder Info: [id number] - FSHLH Result Comment: NORMAL REFERENCE RANGES FEMALE FOLLICULAR 2.3 - 12.6 mIU/mL MID-CYCLE PEAK 5.2 - 17.5 mIU/mL LUTEAL 1.7 - 12.9 mIU/mL POST-MENOPAUSAL ON MHT 5.9 - 72.8 mIU/mL NOT ON MHT 12.7 - 132.2 mlU/mL MALE 0.7 - 10.8 mIU/mL Performed By: #### L 506.1000, L501.9520, L100.0100, L500.4100, L500.4050, L3100.5055, L3400.0200 ####[facility] [address] [place], [address] LH 15.6 mIU/mL Normal [facility] Comment on above: Order Comment: Order Date: 01/25/24Order Info: [id number] - CMPOrder Info: [id number] - LIPIDOrder Info: 3 - TSHOrder Info: [id number] - FSHLH Result Comment: NORMAL REFERENCE RANGES FEMALE FOLLICULAR 1.9 - 26.2 mIU/mL MID-CYCLE PEAK 22.8 - 76.1 mIU/mL LUTEAL 0.6 - 16.6 mIU/mL POST-MENOPAUSAL ON MHT 1.1 - 52.4 mIU/mL NOT ON MHT 8.6 - 61.8 mIU/mL MALE 1.2 - 10.6 mIU/mL Performed By: #### L 506.1000, L501.9520, L100.0100, L500.4100, L500.4050, L3100.5055, L3400.0200 ####[facility] [address] [place], [place], [phone] Lipid Profileon 01-31-2024 Cholesterol [Mass/Vol] 207 mg/dL High 200 [facility] Comment on above: Order Comment: Order Date: 01/25/24Order Info: [id number] - CMPOrder Info: [id number] - LIPIDOrder Info: 6-3 - TSHOrder Info: [id number] - FSHLH Result Comment: <200 mg/dL Desirable 200-240 mg/dL Borderline >240 mg/dL High Risk Performed By: #### L 506.1000, L501.9520, L100.0100, L500.4100, L500.4050, L3100.5055, L3400.0200 ####[facility] [address] [place], [place], [phone] Cholesterol in HDL [Mass/Vol] 54 mg/dL Normal [facility] Comment on above: Order Comment: Order Date: 01/25/24Order Info: [id number] - CMPOrder Info: [id number] - LIPIDOrder Info: [id number] - TSHOrder Info: [id number] - FSHLH Result Comment: The drugs N-Acetylcysteine and Metamizole may falsely depress this assay. Reference Range HDL <40 mg/dL Low HDL Cholesterol HDL >or= 60 mg/dL High HDL Cholesterol Performed By: #### L 506.1000, L501.9520, L100.0100, L500.4100, L500.4050, L3100.5055, L3400.0200 ####[facility] [address] [place], [place], [phone] Cholesterol in LDL [Mass/Vol] 133 mg/dL High 0-130 [facility] Comment on above: Order Comment: Order Date: 01/25/24Order Info: 86-1 - CMPOrder Info: [id number] - LIPIDOrder Info: [id number] - TSHOrder Info: [id number] - FSHLH Performed By: #### L 506.1000, L501.9520, L100.0100, L500.4100, L500.4050, L3100.5055, L3400.0200 ####[facility] [address] [place], [place], [phone]) Cholesterol in VLDL [Mass/Vol] 20 mg/dL Normal 5-40 [facility] Comment on above: Order Comment: Order Date: 01/25/24Order Info: 86-1 - CMPOrder Info: [id number] - LIPIDOrder Info: 63 - TSHOrder Info: [id number] - FSHLH Performed By: #### L 506.1000, L501.9520, L100.0100, L500.4100, L500.4050, L3100.5055, L3400.0200 ####[facility] [address] [place], [place], [phone]) Triglyceride [Mass/Vol] 102 mg/dL Normal [facility] Comment on above: Order Comment: Order Date: 01/25/24Order Info: 86-1 - CMPOrder Info: [id number] - LIPIDOrder Info: [id number] - TSHOrder Info: 0553-1 - FSHLH Result Comment: The drugs N-Acetylcysteine and Metamizole may falsely depress this assay. Serum Triglycerides Reference Interval Normal <150 mg/dL Borderline high 150 - 199 mg/dL High 200 - 499 mg/dL Very High > or = 500 mg/dL Performed By: #### L 506.1000, L501.9520, L100.0100, L500.4100, L500.4050, L3100.5055, L3400.0200 ####[facility] [address] [place], [phone] Thyroid Stim Hormone (TSH)on 01-31-2024 TSH 2.690 uIU/mL Normal 0.358-3.740 [facility] Comment on above: Order Comment: Order Date: 01/25/24Order Info: [id number] - CMPOrder Info: [id number] - LIPIDOrder Info: [id number] - TSHOrder Info: [id number] - FSHLH Performed By: #### L 506.1000, L501.9520, L100.0100, L500.4100, L500.4050, L3100.5055, L3400.0200 ####[facility] [address] [place], [phone] Vitamin D,25 Hydroxyon 01-30 Vitamin D 25-OH 44.4 ng/mL Normal [facility] Comment on above: Order Comment: Order Date: 01/25/24 Order Info: [id number] - VITD25 Result Comment: Anastasia min D 25(OH) Status Range Deficiency <20 ng/mL (50nmol/L) Insufficiency 20 - 30 ng/mL (50 - 75 nmol/L) Sufficiency 30 - 100 ng/mL (75 - 250 nmol/L) Toxicity >100 ng/mL (>250 nmol/L) Performed By: #### L 506.1000, L501.9520, L100.0100, L500.4100, L500.4050, L3100.5055, L3400.0200 #### [facility] [address] [place], [id number] CNOVon 01-14-2024 CNOV Office Visit (UCWSTR) MICHAELLE MAYS ([id number]) 1980 F Date Time Provider Department 01/14/24 10:45 AM MERLYN MEDEL [facility] During your visit today, we recorded the following information about you: Temperature Pulse Respiration Blood pressure 98.1 degrees 86/minute 18/minute 119/84 Weight Last Period 123 kg 01/03/24 Merlyn Medel, GUILLERMINA 01/14/2024 12:06 PM Signed This note was created using CardioFocusriter. 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 Johns Morbid obesity (HCC) Plantar fasciitis Primary osteoarthritis of right knee Current Outpatient Medications Medication Sig Dispense Refill levonorgestrel-ethin yl estradiol (ALTAVERA, 28,) 0.15-0.03 mg per tab [...] 7 days. 7 tablet 0 No current facility-administere d medications for this visit. PAST SURGICAL HISTORY [...] Reaction HAROLDO INHIBITORS 01/11/2014 16 - Angioedema BUPROPION/DIETHYLPRO PION 10/16/2002 2 - Rash Comments: Wellbutrin PENICILLINS 04/28/2001 Comments: augmentin Date Reviewed: 01/14/2024 Reviewed by: Lupe Daniels LPN - Fully Assessed Reason for Visit: Pain, Sinus [857] Cmt: Nasal congestion, headache, sinus pressure, ear pressure, cough x 4 days Primary Visit Dilcia (more content not included)... Normal [facility] CNOVon 12-30-2023 CNOV Office Visit (UCWSTR) MICHAELLE MAYS Sincere ([id number]) 1980 F Date Time Provider Department 12/30/23 11:15 AM ESTELITA RIVERA [facility] During your visit today, we recorded the following information about you: Temperature Pulse Respiration Blood pressure 97.8 degrees 79/minute 18/minute 147/85 Weight 123.1 kg Estelita Rivera PA 12/30/2023 11:29 AM Signed This note was created using [employer]Focus[employer]. 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 Johns Morbid obesity (HCC) Plantar fasciitis Primary osteoarthritis of right knee PAST SURGICAL HISTORY Procedure Laterality Date INDUCED HX 2009 LAPAROSCOPY SURG CHOLECYSTECTOMY 2013 Cholecystectomy, lap PAST SURGICAL HISTORY OF 1998 vaginal wart removal VAGINOSCOPY 2017 ALLERGIES Haroldo Inhibitors, Bupropion/Diethylpro pion, and Penicillins MEDICATIONS levonorgestrel-ethin yl estradiol (ALTAVERA, 28,) 0.15-0.03 mg per tab [...] Reaction HAROLDO INHIBITORS 01/11/2014 16 - Angioedema BUPROPION/DIETHYLPRO PION 10/16/2002 2 - Rash Comments: Wellbutrin PENICILLINS 04/28/2001 Comments: augmentin Date Reviewed: 12/30/2023 Reviewed (more content not included)... Normal [facility] XR Shoulder - right 3 Viewso n 08-04-2023 IMPRESSION: No radiographic evidence of acute osseous injury. Forensic Ballistics Expert: PSCB Transcribe Date/Time: Aug 04 2023 9:44A Dictated by : CODIE ESTES MD This examination was interpreted and the report reviewed and electronically signed by: CODIE ESTES MD on Aug 04 2023 9:47AM [facility] DIVISION OF RADIOLOGY * * *Final Report* [...] Acromioclavicular joint intact. DIVISION OF RADIOLOGY Provider, [facility] [place] - 08/04/2023 * * *Final Report* * [...] No radiographic evidence of acute osseous injury. Forensic Ballistics Expert[facility] Transcribe Date/Time: Aug 04 2023 9:44A Dictated by : CODIE ESTES MD This examination was interpreted and the report reviewed and electronically signed by: CODIE ESTES MD on Aug 04 2023 9:47AM EST [facility] Radiology Study observation (narrative) [facility] XR Shoulder - right 3 ViewsO rdered By: [facility] Provider on 08-04-2023 [facility] INFLUENZA A&B MOLECULAR (POC )on 05-20-2023 Flu A (POCT) Negative Negative [facility] Flu B (POCT) Negative Negative [facility] Procedural Control Valid [facility] JEN SCREENING [facility] 10-02 [facility] XR KNEE GENERAL 4V AP BOTH/P A BOTH/LAT/MERC RIGHTon 04-23-2022 [facility] JEN SCREENING [facility] 09-29 [facility] XR Finger - left AP and Late ral and obliqueon 04-24-2020 IMPRESSION: No acute pathology. Forensic Ballistics Expert: [facility] Transcribe Date/Time: Apr 24 2020 1:58P Dictated by : DEBBIE MULLER DO This examination was interpreted and the report reviewed and electronically signed by: DEBBIE MULLER DO on Apr 24 2020 1:58PM [facility] DIVISION OF RADIOLOGY * * *Final Report* [...] dislocations are seen. DIVISION OF RADIOLOGY Provider, [facility] [place] - 04/24/2020 * * *Final Report* * [...] are seen. IMPRESSION IMPRESSION: No acute pathology. Forensic Ballistics Expert: NICOLA Transcribe Date/Time: Apr 24 2020 1:58P Dictated by : DEBBIE MULLER DO This examination was interpreted and the report reviewed and electronically signed by: DEBBIE MULLER DO on Apr 24 2020 1:58PM EST [facility] Radiology Study observation (narrative) [facility] XR Finger - left AP and Late ral and obliqueOrdered By: [facility] Provider on 04-24-2020 [facility] XR Wrist - right 4 Viewson 1 05-08-2019 IMPRESSION: No acute bony finding. Forensic Ballistics Expert: [facility] Transcribe Date/Time: Mar 07 2020 9:51A [...] Joint spaces maintained. DIVISION OF RADIOLOGY Provider, [facility] [place] - 03/07/2020 * * *Final Report* * [...] maintained. IMPRESSION IMPRESSION: No acute bony finding. Forensic Ballistics Expert: PSCB Transcribe Date/Time: Mar 07 2020 9:51A Dictated by : RAMÍREZ SNYDER MD This examination was interpreted and the report reviewed and electronically signed by: RAMÍREZ SNYDER MD on Mar 07 2020 9:52AM EST [facility] Radiology Study observation (narrative) [facility] XR Wrist - right 4 ViewsOrde red By: [facility] Provider on 03-07-2020 [facility] Emergency Room Note on 02-24-2017 [facility] Note Normal [facility] ([place]) Patient Summary Documentson 02-24-2017 Patient Summary Documents Normal [facility] ([place]) Vital Signs Date Time Vital Sign Value Performing Clinician Asmita cornell 12-12-2024 06:15-0400 Body height 165.1 cm Wild Riggins MD Work Phone: [facility] 12-12-2024 06:15-0400 Body mass index (BMI) [Ratio] 43.2 kg/m2 Wild Riggins MD Work Phone: [facility] 12-12-2024 06:15-0400 Body temperature 97.7 [degF] Wild Riggins MD Work Phone: [facility] 12-12-2024 06:15-0400 Body weight 117.93 kg Wild Riggins MD Work Phone: [facility] 12-12-2024 06:15-0400 Diastolic blood pressure 62 mm[Hg] Wild Riggins MD Work Phone: [facility] 12-12-2024 06:15-0400 Heart rate 108 /min Wild Riggins MD Work Phone: [facility] 12-12-2024 06:15-0400 SaO2% (BldA) [Mass fraction] 98 % Wild Riggins MD Work Phone: [phone] 12-12-2024 06:15-0400 Systolic blood pressure 122 mm[Hg] Wild Riggins MD Work Phone: [facility] 11-01-2024 21:14-0400 Body temperature 98.1 [degF] Wild Riggins MD Work Phone: [facility] 11-01-2024 21:14-0400 Diastolic blood pressure 75 mm[Hg] Wild Riggins MD Work Phone: [facility] 11-01-2024 21:14-0400 Heart rate 80 /min Wild Riggins MD Work Phone: [facility] 11-01-2024 21:14-0400 Respiratory rate 15 /min Wild Riggins MD Work Phone: [facility] 11-01-2024 21:14-0400 SaO2% (BldA) [Mass fraction] 100 % Wild Riggins MD Work Phone: [facility] 11-01-2024 21:14-0400 Systolic blood pressure 138 mm[Hg] Wild Riggins MD Work Phone: [facility] 11-01-2024 19:24-0400 Body height 165.1 cm Wild Riggins MD Work Phone: [facility] 11-01-2024 19:24-0400 Body mass index (BMI) [Ratio] 43.1 kg/m2 Wild Riggins MD Work Phone: [facility] 11-01-2024 19:24-0400 Body weight 117.56 kg Wild Riggins MD Work Phone: [facility] 06-27-2024 06:27-0400 Body temperature 98.2 [degF] Wild Riggins MD Work Phone: [facility] 06-27-2024 06:27-0400 Diastolic blood pressure 84 mm[Hg] Wild Riggins MD Work Phone: [facility] 06-27-2024 06:27-0400 Heart rate 89 /min Wild Riggins MD Work Phone: [facility] 06-27-2024 06:27-0400 SaO2% (BldA) [Mass fraction] 96 % Wild Riggins MD Work Phone: [facility] 06-27-2024 06:27-0400 Systolic blood pressure 124 mm[Hg] Wild Riggins MD Work Phone: [facility] 06-14-2024 11:24-0400 Body temperature 98.3 [degF] Wild Riggins MD Work Phone: [facility] 06-14-2024 11:24-0400 Diastolic blood pressure 74 mm[Hg] Wild Riggins MD Work Phone: [facility] 06-14-2024 11:24-0400 Heart rate 76 /min Wild Riggins MD Work Phone: [facility] 06-14-2024 11:24-0400 Respiratory rate 16 /min Wild Riggins MD Work Phone: [facility] 06-14-2024 11:24-0400 SaO2% (BldA) [Mass fraction] 99 % Wild Riggins MD Work Phone: [facility] 06-14-2024 11:24-0400 Systolic blood pressure 130 mm[Hg] Wild Riggins MD Work Phone: [facility] 03-02-2024 15:50-0500 Heart rate 90 /min Jacinta Green MD Work Phone: [facility] 03-02-2024 15:50-0500 SaO2% (BldA) [Mass fraction] 100 % Jacinta Green MD Work Phone: [facility] 03-02-2024 13:51-0500 Body mass index (BMI) [Ratio] 43.01 kg/m2 Jacinta Green MD Work Phone: [facility] 03-02-2024 13:51-0500 Body weight 121.4 kg Jacinta Green MD Work Phone: [facility] 01-14-2024 10:52-0400 Body mass index (BMI) [Ratio] 43.58 kg/m2 Merlyn Athy PA-C Work Phone: [facility] 01-14-2024 10:52-0400 Body temperature 98.1 [degF] Merlyn Athy PA-C Work Phone: [facility] 01-14-2024 10:52-0400 Body weight 123 kg Merlyn Athy PA-C Work Phone: [facility] 01-14-2024 10:52-0400 Diastolic blood pressure 84 mm[Hg] Merlyn Athy PA-C Work Phone: [facility] 01-14-2024 10:52-0400 Heart rate 86 /min Merlyn Athy PA-C Work Phone: [facility] 01-14-2024 10:52-0400 Respiratory rate 18 /min Merlyn Athy PA-C Work Phone: [facility] 01-14-2024 10:52-0400 SaO2% (BldA) [Mass fraction] 98 % Merlyn Athy PA-C Work Phone: [facility] 01-14-2024 10:52-0400 Systolic blood pressure 119 mm[Hg] Merlyn Athy PA-C Work Phone: [facility] 12-30-2023 11:19-0400 Body mass index (BMI) [Ratio] 43.62 kg/m2 Krislyn Aberegg PA Work Phone: [facility] 12-30-2023 11:19-0400 Body temperature 97.81 [degF] Krislyn Aberegg PA Work Phone: [facility] 12-30-2023 11:19-0400 Body weight 123.1 kg Krislyn Aberegg PA Work Phone: [facility] 12-30-2023 11:19-0400 Diastolic blood pressure 85 mm[Hg] Krislyn Aberegg PA Work Phone: [facility] 12-30-2023 11:19-0400 Heart rate 79 /min Krislyn Aberegg PA Work Phone: [facility] 12-30-2023 11:19-0400 Respiratory rate 18 /min Krislyn Aberegg PA Work Phone: [facility] 12-30-2023 11:19-0400 SaO2% (BldA) [Mass fraction] 98 % Krislyn Aberegg PA Work Phone: [facility] 12-30-2023 11:19-0400 Systolic blood pressure 147 mm[Hg] Krislyn Aberegg PA Work Phone: [facility] 09-20-2023 12:40-0400 Body mass index (BMI) [Ratio] 42.34 kg/m2 Krislyn Aberegg PA Work Phone: [facility] 09-20-2023 12:40-0400 Body temperature 98.2 [degF] Krislyn Aberegg PA Work Phone: [facility] 09-20-2023 12:40-0400 Body weight 119.5 kg Krislyn Aberegg PA Work Phone: [facility] 09-20-2023 12:40-0400 Diastolic blood pressure 66 mm[Hg] Krislyn Aberegg PA Work Phone: [facility] 09-20-2023 12:40-0400 Heart rate 95 /min Krislyn Aberegg PA Work Phone: [facility] 09-20-2023 12:40-0400 Respiratory rate 21 /min Krislyn Aberegg PA Work Phone: [facility] 09-20-2023 12:40-0400 SaO2% (BldA) [Mass fraction] 99 % Krislyn Aberegg PA Work Phone: [facility] 09-20-2023 12:40-0400 Systolic blood pressure 100 mm[Hg] Krislyn Aberegg PA Work Phone: [facility] 08-18-2023 13:31-0400 Body mass index (BMI) [Ratio] 42.81 kg/m2 Jazz Podlogar MANAGER INFUSION.[employer]ER Work Phone: [facility] 08-18-2023 13:31-0400 Body weight 120.84 kg Jazz Podlogar MANAGER INFUSION.WO[employer] GRADER Work Phone: [facility] 08-18-2023 13:31-0400 Diastolic blood pressure 70 mm[Hg] Jazz Podlogar MANAGER INFUSION.WO[employer] GRADER Work Phone: [facility] 08-18-2023 13:31-0400 Heart rate 81 /min Jazz Podlogar MANAGER INFUSION.WO[employer] GRADER Work Phone: [facility] 08-18-2023 13:31-0400 Respiratory rate 18 /min Jazz Podlogar MANAGER INFUSION.WOOL GRADER Work Phone: [facility] 08-18-2023 13:31-0400 SaO2% (BldA) [Mass fraction] 96 % Jazz Wright MANAGER INFUSION.WOOL GRADER Work Phone: [facility] 08-18-2023 13:31-0400 Systolic blood pressure 118 mm[Hg] Jazz Wright MANAGER INFUSION.WOOL GRADER Work Phone: [facility] 08-04-2023 09:09-0400 Body mass index (BMI) [Ratio] 42.87 kg/m2 Krislyn Aberegg PA Work Phone: [facility] 08-04-2023 09:09-0400 Body temperature 97.7 [degF] Krislyn Aberegg PA Work Phone: [facility] 08-04-2023 09:09-0400 Body weight 121 kg Krislyn Aberegg PA Work Phone: [facility] 08-04-2023 09:09-0400 Diastolic blood pressure 78 mm[Hg] Krislyn Aberegg PA Work Phone: [facility] 08-04-2023 09:09-0400 Heart rate 78 /min Krislyn Aberegg PA Work Phone: [facility] 08-04-2023 09:09-0400 Respiratory rate 16 /min Krislyn Aberegg PA Work Phone: [facility] 08-04-2023 09:09-0400 SaO2% (BldA) [Mass fraction] 97 % Krislyn Aberegg PA Work Phone: [facility] 08-04-2023 09:09-0400 Systolic blood pressure 126 mm[Hg] Krislyn Aberegg PA Work Phone: [facility] 07-27-2023 12:48-0400 Body mass index (BMI) [Ratio] 43.08 kg/m2 Eulalia Cabrera MANAGER INFUSION.[employer] GRADER Work Phone: [facility] 07-27-2023 12:48-0400 Body temperature 97.81 [degF] Eulalia Cabrera MANAGER INFUSION.WO[employer] GRADER Work Phone: [facility] 07-27-2023 12:48-0400 Body weight 121.6 kg Eulalia Cabrera MANAGER INFUSION.WO[employer] GRADER Work Phone: [facility] 07-27-2023 12:48-0400 Diastolic blood pressure 68 mm[Hg] Eulalia Cabrera MANAGER INFUSION.WO[employer] GRADER Work Phone: [facility] 07-27-2023 12:48-0400 Heart rate 86 /min Eulalia Cabrera MANAGER INFUSION.WO[employer] GRADER Work Phone: [facility] 07-27-2023 12:48-0400 Respiratory rate 16 /min Eulalia Cabrera MANAGER INFUSION.WOOL GRADER Work Phone: [facility] 07-27-2023 12:48-0400 SaO2% (BldA) [Mass fraction] 99 % Eulalia Cabrera MANAGER INFUSION.WO[employer] GRADER Work Phone: [facility] 07-27-2023 12:48-0400 Systolic blood pressure 128 mm[Hg] Eulalia Cabrera MANAGER INFUSION.WO[employer] GRADER Work Phone: [facility] 07-11-2023 08:10-0400 Body temperature 97.2 [degF] Eulalia Cabrera MANAGER INFUSION.WO[employer] GRADER Work Phone: [facility] 07-11-2023 08:10-0400 Body weight 122.2 kg Eulalia Cabrera MANAGER INFUSION.WO[employer] GRADER Work Phone: [facility] 07-11-2023 08:10-0400 Diastolic blood pressure 62 mm[Hg] Eulalia Cabrera MANAGER INFUSION.WO[employer] GRADER Work Phone: [facility] 07-11-2023 08:10-0400 Heart rate 85 /min Eulalia Cabrera MANAGER INFUSION.WO[employer] GRADER Work Phone: [facility] 07-11-2023 08:10-0400 Respiratory rate 16 /min Eulalia Cabrera MANAGER INFUSION.WO[employer] GRADER Work Phone: [facility] 07-11-2023 08:10-0400 SaO2% (BldA) [Mass fraction] 98 % Eulalia Cabrera MANAGER INFUSION.WO[employer] GRADER Work Phone: [facility] 07-11-2023 08:10-0400 Systolic blood pressure 122 mm[Hg] Eulalia Cabrera MANAGER INFUSION.WO[employer] GRADER Work Phone: [facility] 06-30-2023 07:20-0400 Body temperature 98.49 [degF] Krislyn Aberegg PA Work Phone: [facility] 06-30-2023 07:20-0400 Body weight 121.02 kg Krislyn Aberegg PA Work Phone: [facility] 06-30-2023 07:20-0400 Diastolic blood pressure 78 mm[Hg] Krislyn Aberegg PA Work Phone: [facility] 06-30-2023 07:20-0400 Heart rate 88 /min Krislyn Aberegg PA Work Phone: [facility] 06-30-2023 07:20-0400 Respiratory rate 16 /min Krislyn Aberegg PA Work Phone: [facility] 06-30-2023 07:20-0400 SaO2% (BldA) [Mass fraction] 98 % Krislyn Aberegg PA Work Phone: [facility] 06-30-2023 07:20-0400 Systolic blood pressure 142 mm[Hg] Krislyn Aberegg PA Work Phone: [facility] 05-24-2023 14:59-0500 Body temperature 98.4 [degF] Jazz Podlogar MANAGER INFUSION.[employer] GRADER Work Phone: [facility] 05-24-2023 14:59-0500 Body weight 120.02 kg Jazz Baconlogar MANAGER INFUSION.[employer] GRADER Work Phone: [facility] 05-24-2023 14:59-0500 Diastolic blood pressure 80 mm[Hg] Jazz Podlogar MANAGER INFUSION.[employer] GRADER Work Phone: [facility] 05-24-2023 14:59-0500 Heart rate 101 /min Jazz Podlogar MANAGER INFUSION.[employer] GRADER Work Phone: [facility] 05-24-2023 14:59-0500 Respiratory rate 18 /min Jazz Podlogar MANAGER INFUSION.[employer] GRADER Work Phone: [facility] 05-24-2023 14:59-0500 SaO2% (BldA) [Mass fraction] 98 % Jazz Podlogar MANAGER INFUSION.[employer] GRADER Work Phone: [facility] 05-24-2023 14:59-0500 Systolic blood pressure 124 mm[Hg] Jazz Podlogar MANAGER INFUSION.[employer] GRADER Work Phone: [facility] 05-23-2023 08:09-0500 Body temperature 98.71 [degF] Merlyn Athy PA-C Work Phone: [facility] 05-23-2023 08:09-0500 Body weight 120.66 kg Merlyn Athy PA-C Work Phone: [facility] 05-23-2023 08:09-0500 Diastolic blood pressure 88 mm[Hg] Merlyn Athy PA-C Work Phone: [facility] 05-23-2023 08:09-0500 Heart rate 120 /min Merlyn Athy PA-C Work Phone: [facility] 05-23-2023 08:09-0500 Respiratory rate 21 /min Merlyn Athy PA-C Work Phone: [facility] 05-23-2023 08:09-0500 SaO2% (BldA) [Mass fraction] 95 % Merlyn Athy PA-C Work Phone: [facility] 05-23-2023 08:09-0500 Systolic blood pressure 138 mm[Hg] Merlyn Athy PA-C Work Phone: [facility] 05-20-2023 07:14-0500 Body temperature 98.1 [degF] Henrry Lacy MANAGER INFUSION.[employer] GRADER Work Phone: [facility] 05-20-2023 07:14-0500 Body weight 121.2 kg Henrry Lacy MANAGER INFUSION.WO[employer] GRADER Work Phone: [facility] 05-20-2023 07:14-0500 Diastolic blood pressure 84 mm[Hg] Henrry Lacy MANAGER INFUSION.WO[employer] GRADER Work Phone: [facility] 05-20-2023 07:14-0500 Heart rate 84 /min Henrry Lacy MANAGER INFUSION.WO[employer] GRADER Work Phone: [facility] 05-20-2023 07:14-0500 Respiratory rate 21 /min Henrrygm Lacy MANAGER INFUSION.WOOL GRADER Work Phone: [facility] 05-20-2023 07:14-0500 SaO2% (BldA) [Mass fraction] 98 % Henrry Lacy MANAGER INFUSION.WO[employer] GRADER Work Phone: [facility] 05-20-2023 07:14-0500 Systolic blood pressure 130 mm[Hg] Henrry Lacy MANAGER INFUSION.WO[employer] GRADER Work Phone: [facility] 05-13-2023 07:20-0500 Body weight 119.4 kg Henrry Vyas MD Work Phone: [facility] 05-13-2023 07:20-0500 Diastolic blood pressure 64 mm[Hg] Henrry Vyas MD Work Phone: [facility] 05-13-2023 07:20-0500 Systolic blood pressure 108 mm[Hg] Henrry Vyas MD Work Phone: [facility] 03-11-2023 11:05-0500 Body weight 117.66 kg Cheng Mcdaniel MD Work Phone: [facility] 03-11-2023 11:05-0500 Diastolic blood pressure 72 mm[Hg] Cheng Mcdaniel MD Work Phone: [facility] 03-11-2023 11:05-0500 Heart rate 85 /min Cheng Mcdaniel MD Work Phone: [facility] 03-11-2023 11:05-0500 Respiratory rate 16 /min Cheng Mcdaniel MD Work Phone: [facility] 03-11-2023 11:05-0500 SaO2% (BldA) [Mass fraction] 99 % Cheng Mcdaniel MD Work Phone: [facility] 03-11-2023 11:05-0500 Systolic blood pressure 124 mm[Hg] Cheng Mcdaniel MD Work Phone: [facility] 02-23-2023 11:05-0500 Body temperature 98.4 [degF] Lora March MANAGER INFUSION.[employer] GRADER Work Phone: [facility] 02-23-2023 11:05-0500 Body weight 119.2 kg Lora March MANAGER INFUSION.WO[employer] GRADER Work Phone: [facility] 02-23-2023 11:05-0500 Diastolic blood pressure 74 mm[Hg] Lora March MANAGER INFUSION.WO[employer] GRADER Work Phone: [facility] 02-23-2023 11:05-0500 Heart rate 78 /min Lora March MANAGER INFUSION.[employer] GRADER Work Phone: [facility] 02-23-2023 11:05-0500 Respiratory rate 16 /min Lora March MANAGER INFUSION.WO[employer] GRADER Work Phone: [facility] 02-23-2023 11:05-0500 SaO2% (BldA) [Mass fraction] 98 % Lora March MANAGER INFUSION.WO[employer] GRADER Work Phone: [facility] 02-23-2023 11:05-0500 Systolic blood pressure 118 mm[Hg] Lora March MANAGER INFUSION.WO[employer] GRADER Work Phone: [facility] 12-02-2022 17:36-0400 Body temperature 98.29 [degF] Micah Pete MD Work Phone: [facility] 12-02-2022 17:36-0400 Body weight 115.21 kg Micah Pete MD Work Phone: [facility] 12-02-2022 17:36-0400 Diastolic blood pressure 82 mm[Hg] Micah Pete MD Work Phone: [facility] 12-02-2022 17:36-0400 Heart rate 82 /min Micah Pete MD Work Phone: [facility] 12-02-2022 17:36-0400 Respiratory rate 16 /min Micah Pete MD Work Phone: [facility] 12-02-2022 17:36-0400 SaO2% (BldA) [Mass fraction] 99 % Micah Pete MD Work Phone: [facility] 12-02-2022 17:36-0400 Systolic blood pressure 122 mm[Hg] Micah Pete MD Work Phone: [facility] 11-16-2022 11:56-0400 Body temperature 98.6 [degF] Henrry Lacy MANAGER INFUSION.[employer] GRADER Work Phone: [facility] 11-16-2022 11:56-0400 Body weight 115.67 kg Henrry Lacy MANAGER INFUSION.WO[employer] GRADER Work Phone: [facility] 11-16-2022 11:56-0400 Diastolic blood pressure 78 mm[Hg] Henrry Lacy MANAGER INFUSION.WO[employer] GRADER Work Phone: [facility] 11-16-2022 11:56-0400 Heart rate 112 /min Henrry Lacy MANAGER INFUSION.WO[employer] GRADER Work Phone: [facility] 11-16-2022 11:56-0400 Respiratory rate 18 /min Henrry Regino MANAGER INFUSION.WOOL GRADER Work Phone: [facility] 11-16-2022 11:56-0400 SaO2% (BldA) [Mass fraction] 97 % Henrry Lacy MANAGER INFUSION.WO[employer] GRADER Work Phone: [facility] 11-16-2022 11:56-0400 Systolic blood pressure 138 mm[Hg] Henrry Lacy MANAGER INFUSION.WO[employer] GRADER Work Phone: [facility] 09-07-2022 14:07-0400 Body weight 115.58 kg Jazz Wright MANAGER INFUSION.[employer] GRADER Work Phone: [facility] 09-07-2022 14:07-0400 Diastolic blood pressure 72 mm[Hg] Jazz Podlogar MANAGER INFUSION.[employer] GRADER Work Phone: [facility] 09-07-2022 14:07-0400 Heart rate 78 /min Jazz Podlogar MANAGER INFUSION.[employer] GRADER Work Phone: [facility] 09-07-2022 14:07-0400 Respiratory rate 18 /min Jazz Podlogar MANAGER INFUSION.WO[employer] GRADER Work Phone: [facility] 09-07-2022 14:07-0400 SaO2% (BldA) [Mass fraction] 99 % Jazz Podlogar MANAGER INFUSION.[employer] GRADER Work Phone: [facility] 09-07-2022 14:07-0400 Systolic blood pressure 116 mm[Hg] Jazz Podlogar MANAGER INFUSION.[employer] GRADER Work Phone: [facility] 07-29-2022 07:54-0400 Body weight 115.3 kg Jazz Podlogar MANAGER INFUSION.[employer] GRADER Work Phone: [facility] 07-29-2022 07:54-0400 Diastolic blood pressure 66 mm[Hg] Jazz Podlogar MANAGER INFUSION.[employer] GRADER Work Phone: [facility] 07-29-2022 07:54-0400 Heart rate 84 /min Jazz Podlogar MANAGER INFUSION.[employer] GRADER Work Phone: [facility] 07-29-2022 07:54-0400 Respiratory rate 16 /min Jazz Podlogar MANAGER INFUSION.WO[employer] GRADER Work Phone: [facility] 07-29-2022 07:54-0400 SaO2% (BldA) [Mass fraction] 98 % Jazz Podlogar MANAGER INFUSION.WO[employer] GRADER Work Phone: [facility] 07-29-2022 07:54-0400 Systolic blood pressure 116 mm[Hg] Jazz Podlogar MANAGER INFUSION.[employer] GRADER Work Phone: [facility] 07-27-2022 07:33-0400 Body temperature 99.3 [degF] Jazz Podlogar MANAGER INFUSION.[employer] GRADER Work Phone: [facility] 07-27-2022 07:33-0400 Body weight 114.67 kg Jazz Podlogar MANAGER INFUSION.WO[employer] GRADER Work Phone: [facility] 07-27-2022 07:33-0400 Diastolic blood pressure 78 mm[Hg] Jazz Podlogar MANAGER INFUSION.WO[employer] GRADER Work Phone: [facility] 07-27-2022 07:33-0400 Heart rate 92 /min Jazz Podlogar MANAGER INFUSION.[employer] GRADER Work Phone: [facility] 07-27-2022 07:33-0400 Respiratory rate 16 /min Jazz Podlogar MANAGER INFUSION.WO[employer] GRADER Work Phone: [facility] 07-27-2022 07:33-0400 SaO2% (BldA) [Mass fraction] 98 % Jazz Podlogar MANAGER INFUSION.WO[employer] GRADER Work Phone: [facility] 07-27-2022 07:33-0400 Systolic blood pressure 120 mm[Hg] Jazz Podlogar MANAGER INFUSION.WO[employer] GRADER Work Phone: [facility] 05-06-2022 08:47-0500 Body weight 111.04 kg Micah Jo MD Work Phone: [facility] 05-06-2022 08:47-0500 Diastolic blood pressure 78 mm[Hg] Micah Jo MD Work Phone: [facility] 05-06-2022 08:47-0500 Systolic blood pressure 126 mm[Hg] Micah Jo MD Work Phone: [facility] 03-06-2022 13:23-0500 Body temperature 98.29 [degF] Eulalia Cabrera MANAGER INFUSION.[employer] GRADER Work Phone: [facility] 03-06-2022 13:23-0500 Body weight 107.14 kg Eulalia Cabrera MANAGER INFUSION.WO[employer] GRADER Work Phone: [facility] 03-06-2022 13:23-0500 Diastolic blood pressure 66 mm[Hg] Eulalia Cabrera MANAGER INFUSION.WO[employer] GRADER Work Phone: [facility] 03-06-2022 13:23-0500 Heart rate 86 /min Eulalia Cabrera MANAGER INFUSION.WO[employer] GRADER Work Phone: [facility] 03-06-2022 13:23-0500 Respiratory rate 16 /min Eulalia Cabrera MANAGER INFUSION.WO[employer] GRADER Work Phone: [facility] 03-06-2022 13:23-0500 SaO2% (BldA) [Mass fraction] 98 % Eulalia Cabrera MANAGER INFUSION.WO[employer] GRADER Work Phone: [facility] 03-06-2022 13:23-0500 Systolic blood pressure 126 mm[Hg] Eulalia Cabrera MANAGER INFUSION.WO[employer] GRADER Work Phone: [facility] 12-02-2021 12:49-0400 Body temperature 97.81 [degF] Merlyn Athy PA-C Work Phone: [facility] 12-02-2021 12:49-0400 Body weight 106.59 kg Merlyn Athy PA-C Work Phone: [facility] 12-02-2021 12:49-0400 Diastolic blood pressure 72 mm[Hg] Merlyn Athy PA-C Work Phone: [facility] 12-02-2021 12:49-0400 Heart rate 68 /min Merlyn Athy PA-C Work Phone: [facility] 12-02-2021 12:49-0400 Respiratory rate 16 /min Merlyn Athy PA-C Work Phone: [facility] 12-02-2021 12:49-0400 SaO2% (BldA) [Mass fraction] 99 % Merlyn Athy PA-C Work Phone: [facility] 12-02-2021 12:49-0400 Systolic blood pressure 128 mm[Hg] Merlyn Athy PA-C Work Phone: [facility] 08-26-2021 11:55-0400 Body temperature 97.39 [degF] Esme Tray MANAGER INFUSION.[employer] GRADER Work Phone: [facility] 08-26-2021 11:55-0400 Body weight 106.32 kg Esme Tray MANAGER INFUSION.WO[employer] GRADER Work Phone: [facility] 08-26-2021 11:55-0400 Diastolic blood pressure 68 mm[Hg] Esme Tray MANAGER INFUSION.[employer] GRADER Work Phone: [facility] 08-26-2021 11:55-0400 Heart rate 87 /min Esme Tray MANAGER INFUSION.WO[employer] GRADER Work Phone: [facility] 08-26-2021 11:55-0400 Respiratory rate 18 /min Esme Tray MANAGER INFUSION.WO[employer] GRADER Work Phone: [facility] 08-26-2021 11:55-0400 SaO2% (BldA) [Mass fraction] 98 % Esme Tray MANAGER INFUSION.WO[employer] GRADER Work Phone: [facility] 08-26-2021 11:55-0400 Systolic blood pressure 116 mm[Hg] Esme Tray MANAGER INFUSION.WO[employer] GRADER Work Phone: [facility] Encounters Encounter Date Encounter Type Care Provider Facility Start: 12-12-2024 End: 12-12-2024 Patient encounter procedure Kunal MELISSA -[facility] Work Phone: Start: 12-12-2024 End: 12-12-2024 ambulatory Kunal MELISSA Facility:[facility] Start: 12-09-2024 End: 12-09-2024 ambulatory Wild Riggins MD Work Phone: -Laboratory Specimen Start: 12-09-2024 End: 12-09-2024 Patient encounter procedure Nico Osuna IMMIGRATION COORDINATOR-C -Laboratory Specimen Work Phone: Start: 12-08-2024 End: 12-09-2024 ambulatory Nico Osuna NP Facility:[facility] Start: 12-08-2024 End: 12-08-[address] Wild Riggins MD -Laboratory Specimen Work Phone: Start: 12-08-2024 End: 12-08-2024 ambulatory Wild Riggins Facility:[facility] Start: 11-17-2024 End: 11-17-2024 ambulatory Wild Riggins MD Work Phone: -Cardiovascular Services Start: 11-17-2024 End: 11-17-[address] Wild Riggins MD -Cardiovascular Services Work Phone: Start: 11-17-2024 End: 11-17-2024 ambulatory Wild Riggins Facility:[facility] Start: 11-01-2024 End: 11-01-2024 Emergency department patient visit Wild Riggins MD Work Phone: -Emergency Department Work Phone: Start: 10-09-2024 End: 10-09-2024 ambulatory Wild Riggins MD Work Phone: -Outpatient Breast Imaging Start: 10-09-2024 End: 10-09-2024 Patient encounter procedure Nico Osuna IMMIGRATION COORDINATOR-C -Outpatient Breast Imaging Work Phone: Start: 10-09-2024 End: 10-09-2024 ambulatory Wild Riggins Facility:[facility] Start: 10-02-2024 End: 10-02-2024 ambulatory DEMARCUS LARSEN Facility:[facility] Start: 10-02-2024 End: 10-02-[address] DEMARCUS LARSEN MD [facility] Start: 06-27-2024 End: 06-27-2024 Patient encounter procedure Kunal Adams [facility] -[facility] Work Phone: Start: 06-27-2024 End: 06-27-2024 ambulatory Wild Riggins Facility:[facility] Start: 06-14-2024 End: 06-14-2024 Patient encounter procedure Kunal MELISSA -[facility] Work Phone: Start: 06-14-2024 End: 06-14-2024 ambulatory Wild Riggins Facility:[facility] Start: 05-15-2024 End: 05-15-2024 ambulatory Nico McMorrow IMMIGRATION COORDINATOR Facility:[facility] Start: 03-12-2024 End: 03-13-2024 ambulatory Jacinta Green MD Work Phone: Allergy Comment on above: Blood test results Start: 03-12-2024 End: 03-13-2024 E-mail encounter from caregiver Jacinta Green MD Work Phone: Allergy Start: 03-02-2024 End: 03-02-2024 ambulatory CHENG MCDANIEL Facility:[facility] Start: 03-02-2024 End: 03-02-2024 Office outpatient visit 40 minutes Jacinta Green MD Work Phone: Allergy Comment on above: Allergy to penicilli n (Primary Dx); Urticaria; Angioedema, subsequent encounter Start: 02-15-2024 End: 02-15-2024 ambulatory [facility] Facility:[facility] Start: 02-10-2024 End: 02-10-2024 ambulatory [facility] Facility:[facility] Start: 01-31-2024 End: 01-31-2024 ambulatory [facility] Facility:[facility] Start: 01-27-2024 End: 01-27-2024 ambulatory STONE Diane MCDANIEL Facility:[facility] Start: 01-27-2024 End: 01-27-2024 Office outpatient visit 25 minutes Jacinta Green MD Work Phone: Allergy Comment on above: Urticaria (Primary D x); Angioedema, subsequent encounter; Allergy to penicillin Start: 01-24-2024 End: 01-26-2024 ambulatory Veronique Johns MD Work Phone: Allergy Comment on above: Possibly upping my d [place] Start: 01-24-2024 End: 01-26-2024 Patient encounter procedure Veronique Johns MD Work Phone: Allergy Comment on above: Yearly appointment Start: 01-14-2024 End: 01-14-2024 ambulatory CHENG MCDANIEL Facility:[facility] Start: 01-14-2024 End: 01-14-2024 Patient encounter procedure Merlyn Medel PA-C Work Phone: [facility] Comment on above: Viral URI (Primary D x); Sinus congestion Start: 12-30-2023 End: 12-30-2023 ambulatory CHENG MCDANIEL Facility:[facility] Start: 12-30-2023 End: 12-30-2023 Patient encounter procedure Estelita MELISSA Work Phone: [facility] Comment on above: Strain of neck muscl e, initial encounter (Primary Dx) Start: 12-07-2023 End: 12-21-2023 ambulatory Veronique Johns MD Work Phone: Allergy Comment on above: Swelling of my tongu e Start: 12-06-2023 End: 12-14-2023 Telephone encounter Cheng Mcdaniel MD Work Phone: [facility] [place] Comment on above: Appointment Start: 10-05-2023 Documentation procedure Mammog owen Coordinator [facility] Department Start: 10-05-2023 Letter encounter Mammography Coordinator [facility] Department Start: 10-04-2023 End: 10-04-2023 Subsequent hospital visit by physician Screen Mammo [facility] Comment on above: Encounter for screen ing mammogram for malignant neoplasm of breast [Z12.31] Start: 09-20-2023 End: 09-20-2023 Patient encounter procedure Estelita MELISSA Work Phone: [facility] Comment on above: Fatigue, unspecified type (Primary Dx) Start: 08-24-2023 Refill Annemarie shore PA-C Work Phone: Orthopaedics Comment on above: Refill Request Start: 08-18-2023 End: 08-18-2023 Patient encounter procedure Jazz Wright APRN.CNP Work Phone: [facility] [place] Comment on above: Acute pain of right shoulder (Primary Dx) Start: 08-04-2023 Telephone encounter Rubén anna MD Work Phone: [facility] [place] Comment on above: Appointment Cancelle d (08/26/23 needs rescheduled, see notes for contact attempts./) Start: 08-04-2023 End: 08-04-2023 Subsequent hospital visit by physician Ingrid [facility] Work Phone: Radiology Comment on above: Acute pain of right shoulder [M25.511] Start: 08-04-2023 End: 08-04-2023 Patient encounter procedure Estelita MELISSA Work Phone: [facility] Comment on above: Acute pain [...] above: Refill Request Start: 07-11-2023 End: 07-11-2023 Patient encounter procedure Eullaia Cabrera MANAGER INFUSION.WOOL GRADER Work Phone: [facility] Comment on above: Blister of left hand excluding fingers, subsequent encounter (Primary Dx) Start: 06-30-2023 End: 06-30-2023 Patient encounter procedure Estelita MELISSA Work Phone: [facility] Comment on above: Diarrhea, unspecifie d type (Primary Dx) Start: 05-24-2023 End: 05-24-2023 Patient encounter procedure Jazz Wright MANAGER INFUSION.WOOL GRADER Work Phone: [facility] [place] Comment on above: Blister (nonthermal) of left hand, sequela (Primary Dx) Start: 05-23-2023 End: 05-23-2023 Patient encounter procedure Merlyn Medel PA-C Work Phone: [facility] Comment on above: Blister of left hand , initial encounter (Primary Dx) Start: 05-20-2023 End: 05-20-2023 Patient encounter procedure Henrry Lacy APRN.WOOL GRADER Work Phone: [facility] Comment on above: URI, acute (Primary Dx) Start: 05-13-2023 End: 05-13-2023 Patient encounter procedure Henrry Vyas MD Work Phone: Obstetrics/Gynecology Comment on above: Encounter for gyneco logical examination (general) (routine) without abnormal findings (Primary Dx); Medication refill; Encounter for surveillance of contraceptive pills Start: 05-13-2023 End: 05-13-2023 Patient encounter status Henrry Vyas MD Work Phone: [facility] Work Phone: Start: 05-03-2023 Refill Cecilia Whitsel MANAGER INFUSION.WOOL GRADER Work Phone: Allergy Comment on above: Refill Request Start: 03-11-2023 End: 03-11-2023 Patient encounter procedure Cheng Mcdaniel MD Work Phone: [facility] Comment on above: Acute pain of right knee (Primary Dx) Start: 02-23-2023 End: 02-23-2023 Patient encounter procedure Lora March MANAGER INFUSION.WOOL GRADER Work Phone: [facility] Comment on above: Viral illness (Prima ry Dx) Start: 12-02-2022 End: 12-02-2022 Patient encounter procedure Micah Pete MD Work Phone: [facility] Comment on above: URI, acute (Primary Dx) Start: 12-01-2022 Refill Cecilia Whitsel MANAGER INFUSION.WOOL GRADER Work Phone: Allergy Comment on above: Refill Request Start: 11-30-2022 Refill Veronique Johns MD Work Phone: Allergy Comment on above: Refill Request Start: 11-16-2022 End: 11-16-2022 Patient encounter procedure Henrry Lacy APRN.WOOL GRADER Work Phone: [facility] Comment on above: Fatigue, unspecified type (Primary Dx) Start: 11-05-2022 Refill Cecilia Whitsel MANAGER INFUSION.WOOL GRADER Work Phone: Allergy Comment on above: Refill Request Start: 10-14-2022 End: 10-14-2022 Patient encounter procedure Treva Reynolds MD Work Phone: Otolaryngology Comment on above: Impacted cerumen of left ear (Primary Dx) Start: 10-02-2022 End: 10-02-2022 Subsequent hospital visit by physician Screen Mammo [facility] Comment on above: Encounter for screen ing mammogram for malignant neoplasm of breast [Z12.31] Start: 09-07-2022 End: 09-07-2022 Patient encounter procedure Jazz Wright MANAGER INFUSION.WOOL GRADER Work Phone: [facility] [place] Comment on above: Acute left-sided low back pain without sciatica (Primary Dx); Blister of left hand, initial encounter Start: 08-22-2022 ambulatory Treva Reynolds MD Work Phone: Otolaryngology Comment on above: My left ear. Start: 07-29-2022 End: 07-29-2022 Patient encounter procedure Jazz Wright MANAGER INFUSION.WOOL GRADER Work Phone: [facility] [place] Comment on above: Skin infection (Prim leanne Dx); Blister of skin Start: 07-27-2022 End: 07-27-2022 Patient encounter procedure Jazz Wright MANAGER INFUSION.WOOL GRADER Work Phone: [facility] [place] Comment on above: Skin infection (Prim leanne Dx) Start: 07-22-2022 Telephone encounter Estelita MELISSA Work Phone: [facility] Comment on above: Medication Problem Start: 07-10-2022 Telephone encounter Henrry pal MANAGER INFUSION.WOOL GRADER Work Phone: [facility] Comment on above: Letter Start: 2022 End: 2022 Nursing evaluation of patient and report Mi Nurse Work Phone: [facility] [place] Comment on above: Encounter for long-t [...] End: 04-23-2022 Subsequent hospital visit by physician [facility] [place] Mcnally Work Phone: Radiology Comment on above: Right knee pain, uns pecified chronicity [M25.561] Start: 04-18-2022 Refill Annemarie shore PA-C Work Phone: Orthopaedics Comment on above: Refill Request Start: 04-15-2022 Orders Only Arthur Krishnan MD Work Phone: Orthopaedics Comment on above: Right knee pain, uns pecified chronicity (Primary Dx) Start: 03-06-2022 End: 03-06-2022 Patient encounter procedure Eulalia Cabrera APRN.WOOL GRADER Work Phone: [facility] Comment on above: Strain of [...] with patient Veronique Johns MD Work Phone: [facility] Start: 12-02-2021 End: 12-02-2021 Patient encounter procedure Merlyn R Athy PA-C Work Phone: [facility] Comment on above: Diarrhea, unspecifie d type (Primary Dx) Start: 09-29-2021 Documentation procedure Mammog owen Coordinator [facility] Start: 09-29-2021 Letter encounter Mammography Coordinator [facility] Department Start: 09-29-2021 End: 09-29-2021 Subsequent hospital visit by physician Screen Mammo [facility] Comment on above: Encounter for screen ing mammogram for malignant neoplasm of breast [Z12.31] Start: 09-09-2021 Orders Only Annemarie Preston silviano PA-C Work Phone: Orthopaedics Comment on above: Primary osteoarthrit is of right knee Start: 09-01-2021 Refill Veronique Johns MD Work Phone: Allergy Comment on above: Refill Request Start: 08-26-2021 End: 08-26-2021 Patient encounter procedure Esme Feliz APRN.WOOL GRADER Work Phone: [facility] Comment on above: Nausea (Primary Dx); Diarrhea, unspecified type; Abdominal cramping Start: 08-08-2021 End: 08-08-2021 ambulatory Veronique Johns MD Work Phone: Allergy Comment on above: Encounter for long-t erm (current) use of medications (Primary Dx); Urticaria; Angioedema, subsequent encounter; Cough Start: 08-08-2021 End: 08-08-2021 Telemedicine consultation with patient Veronique Johns MD Work Phone: [facility] Start: 07-20-2021 Refill Cecilia Gomez APRN.WOOL GRADER Work Phone: Allergy Comment on above: Refill Request Start: 04-24-2020 End: 04-24-2020 Subsequent hospital visit by physician Ingrid [facility] [place] Work Phone: Radiology Comment on above: Pain of left middle finger [M79.645] Start: 03-07-2020 End: 03-07-2020 Subsequent hospital visit by physician Ingrid [facility] Work Phone: Radiology Comment on above: Wrist injury, right, initial encounter [S69.91XA] Start: 02-23-2017 End: 02-24-2017 Emergency department patient visit [facility] Facility:[facility] Procedures Date Procedure Procedure Detail Performing Clinician Start: 12-09-2024 Liquid based cervica l cytology screening Wild Riggins MD Work Phone: Comment on above: NEGATIVE FOR INTRAEP ITHELIAL LESION OR MALIGNANCY. This liquid based Th inPrep(R) pap test was screened withthe use of an image guided system. Start: 11-01-2024 CT cervical spine wi thout contrast Wild Riggins MD Work Phone: Start: 11-01-2024 CT of head without contrast Wild Riggnis MD Work Phone: Start: 10-09-2024 Screening mammography C terry Riggins MD Work Phone: Start: 10-02-[address] DEMARCUS LARSEN MD Start: 03-02-2024 ALLERGEN SKIN TEST-PENICILLIN Jacinta Green MD Work Phone: Start: 03-02-2024 Ingestion challenge test initial 120 minutes Jacinta Green MD Work Phone: Start: 08-04-2023 Radex shoulder compl ete minimum 2 views Estelita MELISSA Work Phone: Start: 05-20-2023 INFLUENZA A&B MOLECU LAR (POC) Henrry Lacy MANAGER INFUSION.WOOL GRADER Work Phone: Start: 10-02-2022 End: 10-02-2022 Mammography Micah Jo MD Work Phone: Start: 04-23-2022 Radiologic exam knee complete 4/more views Arthur Krishnan MD Work Phone: Start: 09-29-2021 JEN SCREENING W CHRISTOPHER Jo MD Work Phone: Start: 09-29-2021 Mammography Screen Wst r Start: 10-20-2020 Adult depression scr eening assessment Cecilia Gomez MANAGER INFUSION.WOOL GRADER Work Phone: Start: 09-26-2020 Lipid 1996 panel - S aditya or Plasma Henrry Vyas MD Work Phone: Start: 09-26-2020 Mammography Cecilia Blount didi MANAGER INFUSION.WOOL GRADER Work Phone: Start: 04-24-2020 Radex fingr minimum 2 views Gm Martel MANAGER INFUSION.WOOL GRADER Work Phone: Start: 03-07-2020 Radex wrist complete minimum 3 views Merlyn Medel PA-C Work Phone: Cholecystectomy DR DEMARCUS JENSEN MD Comment on above: LAPAROSCOPIC Plan of Treatment Date Care Activity Detail Author Start: 03-02-2027 [facility] Start: 02-08-2026 [facility] Screening [facility] Start: 09-26-2025 Lipid panel Lipid Screening [facility] Start: 11-01-2024 [facility] Start: 10-03-2024 Screening for malign ant neoplasm of breast Mammogram Screening [facility] Start: 04-26-2024 HPV TESTING HPV TESTING [facility] Start: 04-26-2024 Screening for malign ant neoplasm of cervix HPV Testing [facility] Start: 03-02-2024 End: 06-01-2024 C1Q COMPLEMENT PROT [facility] Comment on above: Expected: 03/02/2024 , Expires: 06/01/2024 Start: 03-02-2024 End: 06-01-2024 Complement C1 esterase inhibitor [Mass/volume] in Serum or Plasma [facility] Comment on above: Expected: 03/02/2024 , Expires: 06/01/2024 Start: 03-02-2024 End: 06-01-2024 Complement C1 esterase inhibitor.functional/Co mplement C1 esterase inhibitor.total in Serum or Plasma [facility] Work Phone: Comment on above: Expected: 03/02/2024 , Expires: 06/01/2024 Start: 03-02-2024 End: 06-01-2024 Complement C4 [Mass/volume] in Serum or Plasma [facility] Comment on above: Expected: 03/02/2024 , Expires: 06/01/2024 Start: 03-02-2024 End: 06-01-2024 Comprehensive metabolic 2000 panel - Serum or Plasma [facility] Comment on above: Expected: 03/02/2024 , Expires: 06/01/2024 Start: 03-02-2024 End: 03-02-2024 Patient encounter procedure 03/02/2024 2:00 PM EST Office Visit Allergy [address] [place] [address] [place] [address] [place] [address] SKIN TESTING, INTRADERMAL - PENICILLIN Allergy Comment on above: SKIN TESTING, INTRAD ERMAL - PENICILLIN Start: 01-27-2024 End: 01-27-2024 Follow-up encounter 01/27/2024 3:30 PM EST [facility] [address] [place] [address] [place] [address] [place] [address] ANNUAL FOLLOW UP - VIRTUAL Allergy Comment on above: ANNUAL FOLLOW UP - V IRTUAL Start: 11-21-2023 Covid-19 Vaccine ( season) Covid-19 Vaccine ( season) [facility] Start: 11-21-2023 Covid-19 Vaccine ( season) Covid-19 Vaccine ( season) [facility] Start: 11-21-2023 Influenza vaccination C [facility] Start: 11-08-2023 End: 11-08-2023 Patient encounter procedure 11/08/2023 1:00 PM EDT Office Visit Orthopaedics [address] [place] [address] Annemarie Dick PA-C [address] [place] [address] Acute pain of right shoulder [M25.511] Orthopaedics Comment on above: Acute pain of right shoulder [M25.511] Start: 10-04-2023 End: 10-04-2023 Patient encounter procedure 10/04/2023 2:50 PM EDT Appointment Mammogram [address] [place] [address] Mammogram Start: 10-03-2023 Mammography [facility] Start: 10-03-2023 Screening for malign ant neoplasm of breast Mammogram Screening [facility] Start: 08-26-2023 End: 08-26-2023 Patient encounter procedure 08/26/2023 10:40 AM EDT Office Visit Dermatology [address] [place] [address] Rubén [place] [address] [place] [address] Blister of left hand, initial encounter [S60.522A (ICD-10-CM)] Dermatology Comment on above: Blister of left hand , initial encounter [S60.522A (ICD-10-CM)] Start: 2023 Screening for malign ant neoplasm of colon [facility] Start: 04-29-2023 PAP TESTING PAP TESTING [facility] Start: 04-29-2023 Screening for malign ant neoplasm of cervix [facility] Start: 03-22-2023 Behavioral Health Screening Behavioral Health Screening [facility] Start: 03-22-2023 Depression Assessment Depression Ass [facility] Start: 12-06-2022 Urine microalbumin profile [facility] Start: 11-20-2022 Covid-19 Vaccine ( season) Covid-19 Vaccine () [facility] Start: 11-20-2022 Influenza vaccination C [facility] Start: 09-29-2022 Mammography MAMMOGRAM [facility] Start: 03-22-2022 [facility] Start: 02-02-2022 End: 04-04-2022 CBC W Auto Differential panel - Blood CBC + DIFF Lab Routine Urticaria Angioedema, subsequent encounter Expected: 02/02/2022, Expires: 04/04/2022 [facility] Work Phone: Comment on above: Expected: 02/02/2022 , Expires: 04/04/2022 Start: 02-02-2022 End: 04-04-2022 Comprehensive metabolic 2000 panel - Serum or Plasma COMP METABOLIC PANEL Lab Routine Urticaria Angioedema, subsequent encounter Expected: 02/02/2022, Expires: 04/04/2022 [facility] Work Phone: Comment on above: Expected: 02/02/2022 , Expires: 04/04/2022 Start: 11-20-2021 Influenza vaccination INFLUENZA (#1) [facility] Start: 10-20-2021 Adult depression screening assessment DEPRESSION SCREENING [facility] Start: 09-26-2021 Mammography MAMMOGRAM [facility] Start: 08-08-2021 End: 10-08-2021 CBC W Auto Differential panel - Blood CBC + DIFF Lab Routine Encounter for long-term (current) use of medications Expected: 08/08/2021, Expires: 10/08/2021 [facility] Work Phone: Comment on above: Expected: 08/08/2021 , Expires: 10/08/2021 Start: 08-08-2021 End: 10-08-2021 Comprehensive metabolic 2000 panel - Serum or Plasma COMP METABOLIC PANEL Lab Routine Encounter for long-term (current) use of medications Expected: 08/08/2021, Expires: 10/08/2021 [facility] Work Phone: Comment on above: Expected: 08/08/2021 , Expires: 10/08/2021 Start: 03-22-2021 DEPRESSION ASSESSMENT DEPRESSION ASS ESSMENT [facility] Start: 1996 Anxiety Screening Anxiety Screening [facility] Start: 1996 Depression Screening Depression Scre ening [facility] End: 08-12-2024 DBT Breast - bilateral screening JEN SCREENING W CHRISTOPHER Radiology Routine Encounter for screening mammogram for malignant neoplasm of breast 1 Occurrences starting 07/14/2023 until 08/12/2024 [facility] Work Phone: Comment on above: 1 Occurrences starti ng 07/14/2023 until 08/12/2024 DBT Breast - bilater al screening JEN SCREENING W CHRISTOPHER Radiology Routine Encounter for screening mammogram for malignant neoplasm of breast 10/04/2023 2:56 PM EDT [facility] Work Phone: End: 08-08-2022 ECG COMPLETE ECG COMPLETE ECG Routine Encounter for long-term (current) use of medications 1 Occurrences starting 08/08/2021 until 08/08/2022 [facility] Work Phone: Comment on above: 1 Occurrences starti ng 08/08/2021 until 08/08/2022 End: 02-02-2023 ECG COMPLETE ECG COMPLETE ECG Routine Encounter for long-term (current) use of medications 1 Occurrences starting 02/02/2022 until 02/02/2023 [facility] Work Phone: Comment on above: 1 Occurrences starti ng 02/02/2022 until 02/02/2023 End: 06-05-2023 JEN SCREENING W CHRISTOPHER JEN SCREENING W CHRISTOPHER Radiology Routine Encounter for screening mammogram for malignant neoplasm of breast 1 Occurrences starting 05/06/2022 until 06/05/2023 [facility] Work Phone: Comment on above: 1 Occurrences starti ng 05/06/2022 until 06/05/2023 Patient Education ED Abrasion ED Neck Sprain or Strain ED Fall Prevention [facility] Work Phone: End: 05-15-2023 XR KNEE GENERAL 4V AP BOTH/PA BOTH/LAT/MERC RIGHT XR KNEE GENERAL 4V AP BOTH/PA BOTH/LAT/MERC RIGHT Radiology Routine Right knee pain, unspecified chronicity 1 Occurrences starting 04/15/2022 until 05/15/2023 [facility] Work Phone: Comment on above: 1 Occurrences starti ng 04/15/2022 until 05/15/2023 [facility] Immunizations Immunization Date Immunization Notes Care Provider Hermilo ahuja 12-18-2023 COVID-19 vaccine, ag e 12+ yr (MODERNA) Krmaryjo MELISSA Work Phone: [facility] 12-18-2023 influenza virus vaccine, split virus (incl. purified surface antigen) Estelita MELISSA Work Phone: [facility] 01-03-2022 COVID-19 booster vaccine, age 12+ yr, bivalent (MODERNA) Veronique Johns MD Work Phone: [facility] Work Phone: 01-03-2022 Influenza, injectabl e, Madin Mandy Canine Kidney, preservative free, quadrivalent Veronique Johns MD Work Phone: [facility] 01-03-2022 influenza, seasonal, injectable, preservative free Veronique Johns MD Work Phone: [facility] Work Phone: 01-03-2022 influenza virus vaccine, unspecified formulation Cecilia Whitsel MANAGER INFUSION.WOOL GRADER Work Phone: [facility] 12-27-2020 influenza, injectabl e, quadrivalent, preservative free Cecilia Whitsel MANAGER INFUSION.WOOL GRADER Work Phone: [facility] 08-15-2020 COVID-19 vaccine, fu ll dose (MODERNA) Cecilia Whitsel MANAGER INFUSION.WOOL GRADER Work Phone: [facility] 07-11-2020 COVID-19 vaccine, fu ll dose (MODERNA) Cecilia Whitsel MANAGER INFUSION.WOOL GRADER Work Phone: [facility] 12-07-2019 influenza, injectabl e, quadrivalent, preservative free Cecilia Whitsel MANAGER INFUSION.WOOL GRADER Work Phone: [facility] 12-23-2018 influenza, injectabl e, quadrivalent, contains preservative Cecilia Whitsel MANAGER INFUSION.WOOL GRADER Work Phone: [facility] 12-19-2017 influenza, seasonal, injectable Cecilia Whitsel MANAGER INFUSION.WOOL GRADER Work Phone: [facility] 12-06-2012 tetanus toxoid, redu luis enrique diphtheria toxoid, and acellular pertussis vaccine, adsorbed Cecilia Whitsecherelle SNEED.WOOL GRADER Work Phone: [facility] Payers Date Payer Category Payer Private Health Insurance [id number] 2024 Self-pay 2022 Unknown [id number] 2021 Unknown MMO MMO [employer] [id number] 2021-Present [phone] [address] [place] [address] PPO [id number] 2019 Unknown [id number] 2017 Unknown [id number] 1978 Unknown [id number] 27 Unknown [id number] 62 Unknown [id number] 62 Unknown [id number] 62 Unknown [id number] 62 Unknown [id number] 62 Unknown [id number] 62 Unknown [id number] 62 Unknown [id number] 62 Unknown [id number] 62 Unknown [id number] 62 Unknown [id number] 62 Unknown [id number] 62 Social History Date Type Detail Facility Start: 12-06-2012 End: 11-01-2024 Tobacco smoking status NHIS Ex-smoker [facility] Comment on above: QUIT 12 YEARS AGO Start: 08-29-2004 End: 08-29-2012 History of tobacco use Current smoker [facility] Start: 12-06-2012 End: 07-26-2022 Cigarettes smoked current (pack per day) - Reported 0.5 [facility] Start: 12-06-2012 End: 12-30-2023 Tobacco use and exposure Smokeless tobacco non-user [facility] Start: 05-19-2021 End: 01-14-2024 Alcohol intake Current drinker of alcohol (finding) [facility] Start: 01-25-2020 End: 07-26-2022 History SDOH Alcohol Frequency 1 [facility] Start: 10-09-2019 End: 07-26-2022 History SDOH Alcohol Std Drinks 2 [facility] Start: 02-14-2013 History SDOH Alcohol Comment rarely [facility] Start: 01-25-2020 End: 07-26-2022 History SDOH Social Connections Get Together 98 [facility] Start: 05-31-2019 End: 07-26-2022 History SDOH Social Connections Living 3 [facility] Start: 09-26-2019 End: 07-26-2022 History SDOH Physical Activity DPW 0 [facility] Start: 09-26-2019 End: 07-26-2022 History SDOH Financial 5 [facility] Start: 05-31-2019 Education 12 [facility] Start: 1980 Sex Assigned At Female C [facility] Start: 02-06-2020 End: 02-11-2022 Exposure to SARS-CoV-2 (event) Not sure [facility] Start: 08-29-2004 End: 08-29-2012 History of tobacco use Cigarette Smoker [facility] Work Phone: Start: 07-26-2022 End: 08-18-2023 Social connection and isolation panel [facility] How often do you get together with friends or relatives? Patient refused [facility] Do you belong to any clubs or organizations such as mosque groups, unions, fraternal or athletic groups, or school groups? No [facility] Are you now , , , , never or living with a partner? [facility] How often to you hav e a drink containing alcohol? Monthly or less [facility] How many standard dr inks containing alcohol do you have on a typical day? 1 or 2 [facility] How often do you hav e 6 or more drinks on 1 occasion? Less than monthly [facility] Do you feel stress - tense, restless, nervous, or anxious, or unable to sleep at night because your mind is troubled all the time - these days [OSQ] Not at all [facility] (I/We) worried brant er (my/our) food would run out before (I/we) got money to buy more. Never true [facility] Start: 01-26-2019 Gender identity Identifies as female gender (finding) [facility] Start: 01-26-2019 Sexual orientation Heterosexual (fin ding) [facility] How often to you hav e a drink containing alcohol? Never [facility] Sexual Orientation [facility] Start: 02[birth year]23-2017 Sex Female (finding) [facility] Clinical Notes 02-14-2013 to 12-12-2024 Note Date & Type Note Facility 12-12-2024 Progress note [facility] 11-14-2024 Note Patient Outreach (FAMPWS) MICHAELLE MAYS ([id number]) 1980 F Date Time Provider Department 11/14/24 CHENG MCDANIEL FAMPWS During your visit today, we recorded the following information about you: Allergies As of Date: 11/14/2024 Noted Allergy Reaction HAROLDO INHIBITORS 01/11/2014 18 - Angioedema BUPROPION/DIETHYLPROPION 10/16/2002 2 - Rash Comments: Wellbutrin Date Reviewed: 03/02/2024 Reviewed by: Ingrid Lambert RN - Fully Assessed Visit Diagnosis:Encounter for screening mammogram for breast cancer [Z12.31] Order(s):JEN SCREENING W CHRISTOPHER [[id number]] Order #: [id number] FUTURE Prescriptions as of 12/15/2024 - montelukast (SINGULAIR) 10 mg tablet Take 1 tablet by mouth daily at bedtime. - doxepin capsule 25 mg Take 1 capsule by mouth at bedtime as needed. - cetirizine (ZYRTEC) 10 mg tablet Take 1 tablet by mouth once daily. Can increase for to 2 tablets twice daily for hives and swelling. - fluticasone (FLONASE) 50 mcg/actuation nasal spray Use 2 Sprays in each nostril once daily. Rinse mouth after use. - levonorgestrel-ethinyl estradiol (ALTAVERA, 28,) 0.15-0.03 mg per tab Take 1 tablet by mouth once daily. Problem List As Of Date 11/14/2024 Noted Resolved Adult BMI 30+ [XDJ7206] 02/14/2013 07/02/2017 Angio-edema [T78.3XXA] 01/02/2014 Obesity, Class III, BMI >= 40 E66.01 [E66.813] 07/02/2017 Osteoarthritis [M19.90] 07/02/2017 Urticaria [L50.9] 04/26/2019 ASCUS of cervix with negative high risk HPV [R8*04/2019 Right knee pain [M25.561] 11/13/2019 Effusion of right knee [M25.461] 11/13/2019 Encounter Status:Closed by [employer], PRODUSER on 12/15/24 [facility] 11-01-2024 Radiology Diagnostic study note [facility] Imaging Services [address] [place] [address] Brain/Head without Contrast MR#: [id number] Acct: [id number] Name: MICHAELLE MAYS Sincere Rep #: [id number] : 1980 F 44 From: Jatinder Mcgovern MD PCP: Dr. Wild Riggins MD Status: REG ER Study:Brain/Head without Contrast Date of Exa m: 11/01/24 Exam# [id number] Ordering Dr: Marcin Moore MD EXAM: CT [...] or cervical spine traumatic findings. Reading Location: [facility] CC: Dr. Wild Riggins MD; Dr. Giulia Moore MD ~ Forensic Ballistics Expert: Signed [facility] 11-01-2024 Radiology Diagnostic study note [facility] Imaging Services [address] [place] [address] [id number] Spine Cervical without Contras MR#: [id number] Acct: [id number] Name: MICHAELLE MAYS Rep #: [id number] : 1980 F 44 From: Jatinder Mcgovern MD PCP: Dr. Wild Riggins MD Status: REG ER Study:Spine Cervical without Contras Date of Exam: 11/01/24 Exam# [id number] Ordering Dr: Marcin Moore MD EXAM: CT [...] or cervical spine traumatic findings. Reading Location: [facility] CC: Dr. Wild Riggins MD; Dr. Giulia Moore MD ~ Forensic Ballistics Expert: Signed [facility] 10-02-2024 Evaluation + Plan note Extrac garcía from: Title:Clinical Document Author:DEMARCUS LARSEN Date:10/02/24 [place] ADMISSION HISTORY AN D PHYSICIAL CHIEF COMPLAINT: HISTORY OF PRESENT ILLNESS: REVIEW OF SYSTEMS: ACTIVE PROBLEMS: (1) Obese ([id number]) MEDICATIONS: Active Inpt Meds: None Active PRN Meds: None One Time Meds: None Active IV Meds: Lactated Ringers Infusion 1,000 mL (LR 1,000 mL) Start: 10/02/24 8:24:00 EDT, Rate: 50 mL/hr, 10/02/24 8:24:00 EDT ALLERGIES: (2) HAROLDO inhibitors Wellbutrin FAMILY HISTORY: SOCIAL HISTORY: PHYSICAL EXAM: VITALS: TmqfyrVkgmXCBmunkPDGiN3CND5BqeyEh(kg) 10/02 08:4036.5--894048--12/28355.0 24 Hr Tmax: 36.5 at 10/02 08:40 [...] changes to the H&P unless noted below. [facility] 07-14-2025 Hospital Discharge instructions Patient Education 10/02/2024 [...] water added (diluted fruit juice). Eat bland, kjte-dd-lxopzv foods in small amounts as you are able. These foods include bananas, applesauce, rice, lean meats, toast, and crackers. Avoid fluids that contain a lot of sugar or caffeine, such as energy drinks, sports drinks, and soda. Avoid alcohol. Avoid spicy or fatty foods. General instructions Take cuir-bjz-bbhhpyy and prescription medicines only as told by your health care provider. Drink enough fluid to keep your urine pale yellow. Wash your hands often using soap and water. If soap and water are not available, use hand chocolate coater. Make sure that all people in your [...] eating and drinking to prevent dehydration. Take wbqb-amb-xzfovdx and prescription medicines only as told by [...] 03/08/2006 Document Revised: 06/30/2019 Document Reviewed: 08/16/2018 Elsevier Patient Education 2020 Elsevier Inc. 10/02/2024 09:47:42 Moderate Conscious Sedation, Adult, Care [...] until you are awake and alert. Take dhqd-yxj-rrfykqt and prescription medicines only as told by [...] 12/27/2013 Document Revised: 02/18/2018 Document Reviewed: 06/27/2016 [email or web address] Patient Education 2020 [employer] 10/02/2024 09:47:20 Colonoscopy, Adult, Care After Colonoscopy, [...] a slower pace than normal. ?Eat soft, odey-ym-gfksed foods. Take bfnp-vlk-rvtxrri or prescription medicines only as told by [...] 10/20/2004 Document Revised: 12/29/2017 Document Reviewed: 05/19/2016 [email or web address] Patient Education 2020 KVK TEAM. Follow Up Care 09/14/2024 07:12:48 With:DEMARCUS LARSEN MD Address: [address] [facility] [address] [place] [address] [phone] When: only if needed Comments:NEXT COLONOSCOPY IN 10 YEARS [facility] 07-14-2025 Note Discharge Instructions Thank you for allowing [facility] to assist you with your healthcare needs. The following is importantdischarge information regarding your hospital visit. Your Care Team WILD RIGGINS MD What to do next Follow Up Appointments Follow Up with DEMARCUS LARSEN MD When:Only if needed Where:[address] [facility] [facility] [address] [place] [address]- [phone] Additional Information: NEXT COLONOSCOPY IN 10 YEARS [...] water added (diluted fruit juice). Eat bland, hqcf-lm-wzjlsv foods in small amounts as you are able. These foods include bananas, applesauce, rice, lean meats, toast, and crackers. Avoid fluids that contain a lot of sugar or caffeine, such as energy drinks, sports drinks, and soda. Avoid alcohol. Avoid spicy or fatty foods. General instructions Take yvqf-kzr-yzcmddx and prescription medicines only as told by your health care provider. Drink enough fluid to keep your urine pale yellow. Wash your hands often using soap and water. If soap and water are not available, use hand chocolate coater. Make sure that all people in your [...] eating and drinking to prevent dehydration. Take kvkq-nai-vgsngrj and prescription medicines only as told by [...] 03/08/2006 Document Revised: 06/30/2019 Document Reviewed: 08/16/2018 [email or web address] Patient Education 2020 [email or web address] Inc. Moderate Conscious Sedation, Adult, Care After These [...] until you are awake and alert. Take blfr-nab-ucorcvw and prescription medicines only as told by [...] 12/27/2013 Document Revised: 02/18/2018 Document Reviewed: 06/27/2016 [email or web address] Patient Education 2020 KVK TEAM. Colonoscopy, Adult, Care After This sheet gives [...] slower pace than normal. ? Eat soft, swuv-zf-smwknx foods. Take ydbt-mks-ivbxvzp or prescription medicines only as told by [...] 10/20/2004 Document Revised: 12/29/2017 Document Reviewed: 05/19/2016 [email or web address] Patient Education 2020 KVK TEAM. Additional Information VACCINATE! IT SAVES LIVES! Members of the community who have not yet received the COVID-19 vaccine and would like to receive it can visit one of [facility] vaccine clinics. There are many vaccine clinic locations within the [facility]. For locations and available times, please visit [email or web address].[place].gov/. It is important to note that some COVID mobile vaccine clinics are held outdoors and may be canceled in rainy or stormy conditions. To learn more about pediatric vaccinations (ages 5-11), we invite you to visit the [facility] webpage. https://www.[email or web address]/[email or web address]-Brfbo-Lrbjwcpknnk-Fttzsxfexq-Githu-Zea stions.htmlTo learn more about the COVID-19 vaccine, we invite you to visit the CDC website for a list of frequently asked questions.https://www.cdc.gov/coronavirus/2019-ncov/vaccines/faq.html [employer] Patient Portal Access Instructions: Stay connected with your healthcare team and access your personal medical information anytime with the [employer] Patient Portal. Please follow the directions below to create your [employer] account: 1.Access the email account you provided upon registration to the hospital/physician office.2.Look for an invitation email from [facility].3.Open the email and access the invitation link: AcceptInvitation to [employer].4.Fill in the required arroyo to create your account. To access your account, visit [email or web address]. Click the blue button labeled Access Patient [...] who you will allowto register on the [employer] Patient Portal for access to your information. You can also access the [employer] Patient Portal on the [employer] Anywhere jennifer. Simply click on Patient Portal and then log into your account. If you would like to receive a full copy of your medical records, please contact the [facility] Medical Records Department by calling [phone], Wednesday through Wednesday between 8 a.m. and [...] Call your local pharmacy or go to http://Datadog.Progressive Dealer Tools/8G0Wo5y to find one close to you.3.Make use of household items: Use cat litter or old coffee grounds to dispose medications if other options arenot available. Mix your drugs with these household products, seal them in an airtight container andthrow it into the garbage. Call [facility]: [phone] to be sure your drugs can be [...] aware that I should contact my doctor. Patient/Finance Specialist Signature: Date/Time: Relationship to Patient: Witness Name/Signature: Date/Time: [facility]07-14-2025 Note Date of Service 10/02/2024 Procedure Name Screening colonoscopy Consent Taken before procedure Indication Screening colonoscopy Location [facility] Pre-Procedure Exam Screening colonoscopy Procedural Sedation [...] DEMARCUS LARSEN MD on 10/02/2024 09:44 AM [facility]07-14-2025 Anesthesiology Consult note Patient: MICHAELLE MAYS [...] normal limits. Digitally Signed by AZAEL LONG on 10/02/2024 09:38 AM [facility]07-14-2025 Note [place] ADMISSION HISTORY AND PHYSICIAL CHIEF COMPLAINT: HISTORY OF PRESENT ILLNESS: REVIEW OF SYSTEMS: ACTIVE PROBLEMS: (1) Obese ([id number]) MEDICATIONS: Active Inpt Meds: None Active PRN Meds: None One Time Meds: None Active IV Meds: Lactated Ringers Infusion 1,000 mL (LR 1,000 mL) Start: 10/02/24 8:24:00 EDT, Rate: 50 mL/hr, 10/02/24 8:24:00 EDT ALLERGIES: (2) HAROLDO inhibitors Wellbutrin FAMILY HISTORY: SOCIAL HISTORY: PHYSICAL EXAM: VITALS: LjyuqtYfrlRWFqjeeDYCnC1VOJ2EowiQb(kg) 10/02 08:4036.5--145519--10/64047.0 24 Hr Tmax: 36.5 at 10/02 08:40 [...] DEMARCUS LARSEN MD on 10/02/2024 09:25 AM [facility]07-14-2025 Anesthesiology Consult note Patient: MICHAELLE MAYS Age: 44 years Sex: Female : 1980 Associated Diagnoses: None Author: AZAEL LONG MANAGER INFUSION-HOME HEALTH REGISTERED NURSE Preoperative Information Time of last food or [...] Cancer Grandparent Stroke Grandparent Procedure history: Cholecystectomy ([id number]). Comments: 10/02/2024 8:34 EDT - Ramírez Mosley RN LAPAROSCOPIC Social History: [...] Signs (last 24 hrs) Last Charted Temp Utsowosp86.5 DegC (OCT 02 08:40) PCJ352 mmHg (OCT 02 08:40) DBP75 mmHg (OCT 02 08:40) Measurements from flowsheet : Measurements 10/02/2024 8:40 EDT Height 165.1 cm Height in inches 65 inch(es) Admission Weight 116 kg Weight Lbs 255.2 lb [place] Body Weight 57.00 kg Admission Body Mass [...] Attendee SN - CAt - Role Performed Mixing Engineer SN - CAt - Role Performed Procedure Nurse SN - CAt - Role Performed HOME HEALTH REGISTERED NURSE SN - CAt - Role Performed Primary [...] Weight 116 kg Weight Lbs 255.2 lb [place] Body Weight 57.00 kg Admission Body Mass [...] Intake 10/01/2024 9:00 . Assessment and Plan [place] Society of Anesthesiologists (ASA) physical status classification: Class III. Anesthetic Preoperative Plan Premedication: intravenous. Anesthetic technique: MAC. Induction: intravenously. Maintenance airway: Mask. Risks discussed: nausea, vomiting, headache, sore throat, dental injury, hypotension, allergic reaction, serious complications. Informed consent: signed by patient. Digitally Signed by AZAEL LONG on 10/02/2024 09:12 AM [facility]03-26-2025 Evaluation note* Diagnosis Onset Date Resolution Status Admit Date Cervical strain acute May 11:20am Thoracic myofascial strain acute June 14, 2024 11:20am Fatigue noneactive June 27 6:11am [facility] Work Phone: [phone] 606-305512-12-2024 Instructions* Patient Instructions* Jacinta Green MD - [...] reactions. - Chart updated. documented in [facility]12[facility] History of Present illness Narrative* Jacinta [...] in November and went to ED in [place]. Decreased dose of doxepin to 25 mg [...] told she had to get it at [facility] and was notable to do it. No [...] some shortness of breath. 03/30/18 - Michaelle Sincere Mays is a 37 year old female [...] no NSAIDS recently. April 05, 2015 - Michaellefatou Negron presents for follow up. with tongue [...] January. December 20, 2014 - Michaelle Sincere Negron presents for follow up. Last Wednesday [...] March. March 30, 2014 - Michaelle Sincere Negron presents for follow up. Last Wednesday [...] intermittently. unsure if exacerbates symptoms. Works at [employer]. NO FMH of angioedema. No liver or [...] Pets in the home: 2 cats Scott: Ncrg-fe-cauz carpeting Air conditioning: No air conditioning Heating: [...] HPV 04/2019 History of tobacco use Hives Medical Administrative Assistant Dr. Johns Morbid obesity (HCC) Plantar fasciitis [...] Abs Lymph 1.00 - 4.00 k/uL 2.92 [place]% % 6.5 Abs [place] <0.87 k/uL 0.62 Eosin% % 0.9 Abs [...] arise. Jacinta Green MD Allergy and Immunology [facility] I spent a total of >40 minutes on the date of the service which included preparing to see the patient, vrzm-lm-hdri patient care, completing clinical documentation, obtaining and/or reviewing separately obtained history, performing a medically appropriate examination, counseling and educating the patient/family/caregiver, ordering medications, tests, or procedures, and independently interpreting results (not separately reported). documented in this encounterRiverside [facility] Hospital12-12-2024 NoteHNO ID: [id number] Author: JACINTA GREEN MD Service: ? Author [...] in November and went to ED in [place]. Decreased dose of doxepin to 25 mg [...] told she had to get it at [facility] and was not able to do it. [...] coughing, and wheezing sx. (more content not included)...[facility]11-07-2024 NoteHNO ID: [id number] Author: ?, ?, ? Service: ? Author Type: ? Type: Progress Notes Filed: 01/30/2024 16:27 Note Text: Patient has been scheduledDunlap [facility] Hospital11-[facility]24 History of Present illness Narrative* Cele Alanis - 01/27/2024 4:04 PM EST Patient has been scheduled * Jacinta Green MD - 01/27/2024 3:30 PM EST Images from the original note were not included. Allergy and Immunology This is a virtual visit using [employer] Zoom Video Visit. It required patient- provider interaction for the medical decision making as documented below. I have communicated my name and active licensure. The patient's identity and physical location wereverified at the time of this visit. Either the patient or their legal admitting representative has been informed of the risks [...] in November and went to ED in [place]. Decreased dose of doxepin to 25 mg [...] told she had to get it at [facility] and was notable to do it. No [...] intermittently. unsure if exacerbates symptoms. Works at [employer]. NO FMH of angioedema. No liver or [...] Pets in the home: 2 cats Scott: Wsxh-ho-eapz carpeting Air conditioning: No air conditioning Heating: Forced hot air Basement: Dry basement Dust mite controls: Dust mite controls are not in place. Tobacco smoke: No exposure in the home PAST MEDICAL HISTORY Diagnosis Date Abnormal Pap smear of cervix Angio-edema 01/02/2014 ASCUS of cervix with negative high risk HPV 04/2019 History of tobacco use Hives Medical Administrative Assistant Dr. Johns Morbid obesity (HCC) Plantar fasciitis [...] is alert. Diagnostic Testing: Labs Latest Ref [facility] 02/08/2023 WBC 3.70 - 11.00 k/uL 9.60 [...] Abs Lymph 1.00 - 4.00 k/uL 2.92 [place]% % 6.5 Abs [place] <0.87 k/uL 0.62 Eosin% % 0.9 Abs [...] to testing and evaluation. Message sent to recovery collector. > Continue to avoid penicillins at this time. Discussed medication dosage, usage, side effects, and goals of treatment in detail. Follow-up: Return for PCN evaluation.. Patient advised to call or return sooner should current symptoms worsen or fail to improve or if new symptoms or problems arise. Jacinta Green MD Allergy and Immunology [facility] Medical Decision Making: Problems: Moderate: 2+ stable chronic illnesses Data: Unique test result(s) reviewed: 2 Unique test(s) ordered: 1 Risk: Moderate: Drug management Medical Decision Making Level: 4 - Moderate documented in this encounterRiverside [facility]11-07-2024 NoteHNO ID: [id number] Author: JACINTA GREEN MD Service: ? Author Type: Physician Type: Progress Notes Filed: 01/30/2024 16:27 Note Text: Allergy and Immunology This is a virtual visit using [employer] Zoom Video Visit. It required patient-provider interaction for the medical decision making as documented below. I have communicated my name and active licensure. The patient's identity and physical location were verified at the time of this visit. Either the patient or their legal admitting representative has been informed of the risks [...] in November and went to ED in . Decreased dose of doxepin to 25 mg [...] told she had to get it at [facility] and was not able to do it. [...] today for follow up. (more content not included)...[facility]11-05-2024 Telephone encounter Note* Telephone Encounter - Cele Alanis - 01/25/2024 12:07 PM EST Patient has been scheduled with Dr Green on 01/26 Virtually. [facility]11-05-[facility]24 Miscellaneous Notes* Telephone Encounter - Cele [...] in person OV: 04/26/19 documented in this encounterRiverside [facility] Hospital11-05-2024 Telephone encounter Note * Telephone Encounter - Cele Alanis - 01/25/2024 9:36 AM EST Left VM for patient to return call to schedule with another provider as Dr Andreas armas VV is not until 04/14 and her 1st in person is not until May [facility]11-05-[facility] Telephone encounter Note* Telephone Encounter - Luisana Dewitt MA - 01/25/2024 8:04 AM EST [place]: 02/05/23 Last in person OV: 04/26/19 [facility]11-04-[facility] Telephone encounter Note* Telephone Encounter - Luisana Dewitt MA - 01/24/2024 2:57 PM EST [place]: 02/05/23 Advised patient to schedule yearly appt as nothing is scheduled as of now. [facility]-04[facility] Miscellaneous Notes* Telephone Encounter - Luisana Dewitt MA - 01/24/2024 2:57 PM EST [place]: 02/05/23 Advised patient to schedule yearly appt as nothing is scheduled as of now. documented in this encounterRiverside Methodist Hospital10-25-2024 NoteHNO ID: [id number] Author: MERLYN MEDEL PA-C Service: ? Author Type: Physician Marine Surveyor Type: Progress Notes Filed: 01/14/2024 12:06 Note Text: This note was created using Aunalytics. 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 Johns Morbid obesity (HCC) Plantar fasciitis [...] over the next week. Patient agreeable. [facility] History of Present illness Narrative* Merlyn Medel PA-C - 01/14/2024 12:04 PM EDT This note was created using CardioFocusriter. 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 Johns Morbid obesity (HCC) Plantar fasciitis [...] agreeable. Merlyn Medel PA-C\ documented in this encounterRiverside [facility] Hospital10-10-2024 NoteHNO ID: [id number] Author: ESTELITA RIVERA PA Service: ? Author Type: Physician Marine Surveyor Type: Progress Notes Filed: 12/30/2023 11:29 Note Text: This note was created using CardioFocusriter. 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 Estelita Rivera [facility]10-10-2024 History of Present illness Narrative* Estelita Rivera, SHIN - 12/30/2023 11:24 AM EDT This note was created using CardioFocusriter. 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 Johns Morbid obesity (HCC) Plantar fasciitis [...] ER evaluation. SHIN George documented in this encounterRiverside [facility] Hospital09-24-2024 Telephone encounter Note * Telephone Encounter - Arelis Ordonez LPN - 12/14/2023 10:27 AM EDT Patient following up with allergy regarding. Closing encounter. Arelis Ordonez LPN [facility]09-24-[facility] Miscellaneous Notes* Telephone Encounter - Arelis Ordonez LPN - 12/14/2023 10:27 AM EDT Patient following up with allergy regarding. Closing encounter. Arelis Ordonez LPN * Telephone Encounter - Arelis Ordonez LPN - 12/06/2023 4:12 PM EDT Patient seen in ED 12/02 for allergic reaction, Dr. Mcdaniel recommends 1 week ER follow up. Patient telephoned, message left to call back to schedule appointment. Arelis Ordonez LPN documented in this encounterRiverside [facility] Hospital09-16-2024 Telephone encounter Note * Telephone Encounter - Arelis Ordonez LPN - 12/06/2023 4:12 PM EDT Patient seen in ED 12/02 for allergic reaction, Dr. Mcdaniel recommends 1 week ER follow up. Patient telephoned, message left to call back to schedule appointment. Arelis Ordonez LPN [facility]07-16-[facility] Note* Letter - Coordinator, Mammography - 10/05/2023 8:56 AM EDT October 05, 2023 PID: [id number] Michaelle Mays [address] [place] [address] Dear Ms. Mays, We are pleased to [...] report will be [facility] at [facility] as part of your permanent medical record and are available for your continuing care. Thank you for allowing us to help in meeting your health care needs. Sincerely, Dr. Ralph Interpreting Radiologist [facility] (Normal over 40) [facility]07-16-2024 Miscellaneous Notes* Letter - Coordinator, Mammography - 10/05/2023 8:56 AM EDT October 05, 2023 PID: [id number] Michaelle Mays [address] [place] [address] Dear Ms. Mays, We are pleased to [...] report will be kept on file at [facility] as part of your permanent medical record and are available for your continuing care. Thank you for allowing us to help in meeting your health care needs. Sincerely, Dr. Ralph Interpreting Radiologist [facility] (Normal over 40) documented in this encounterRiverside Methodist Hospital07-15-2024 History of Present illness Narrative* Lisette Hayden Mammo Tech - 10/04/2023 2:50 PM [...] PATIENT PRESENTS WITH AN IMPLANTABLE OR ATTACHED BINDING CUTTER SYNTHETIC CLOTH: No RADIOLOGY DEPARTMENT: Mammography PERIPHERAL IV DATA: Not applicable SIGNED BY: Ruben Toribio October 04, 2023 2:31 PM documented in this encounterR[facility]07-[facility]24 History of Present illness Narrative* Estelita Rivera PA - 09/20/2023 12:50 PM EDT This note was created using CardioFocusriter. Subjective Michaelle Mays is a 43 year [...] ER evaluation. SHIN George documented in this encounterR[facility]06-04-2024 Telephone encounter Note * Telephone Encounter - Annemarie Dick PA-C - 08/24/2023 9:09 AM EDT Patient has not been seen in our office in over a year, with her last refill request I informed herthat she really may need to make a follow-up with orthopedics or obtain additional refills from herPCP, see Epic. [facility] Miscellaneous Notes* Telephone Encounter - Annemarie Dick PA-C - 08/24/2023 9:09 AM EDT Patient has not been seen in our office in over a year, with her last refill request I informed herthat she really may need to make a follow-up with orthopedics or obtain additional refills from herPCP, see Epic. documented in this encounterRiverside [facility] Hospital05-29-2024 History of Present illness Narrative* Jazz Wright APRN.WOOL GRADER - 08/18/2023 1:29 PM EDT 08/18/2023 Patient presents with: Pain: Right arm and shoulder pain from fall in June SUBJECTIVE: This is a 43 year old that is here today for Above Complaints.. In June while carrying laundry stepped into husbands guitar case and fell face forward. Reports right arm landed outstretched onto some boxes. Seen in [facility] on 08/04/2023 and had xray [...] No radiographic evidence of acute osseous injury. 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 Johns Morbid obesity (HCC) Plantar fasciitis [...] Soliz. 2+ radial pulse Covid-19 Vaccine( - season) due on 11/20/2022 DTaP,Tdap,Td Vaccine(2 - [...] ER with red flag symptoms Jazz Wright APRN.WOOL GRADER Prescription instructions reviewed with patient as applicable. [...] Level: 3 - Low documented in this encounterRiverside [facility] Hospital05-20-2024 Telephone encounter Note * Telephone Encounter - Skylar Chaves - 08/09/2023 9:21 AM EDT GALLO read. Closing encounter [facility] Miscellaneous Notes* Telephone Encounter - Skylar Chaves - 08/09/2023 9:21 AM EDT GALLO read. Closing encounter * Telephone Encounter - HeronShaan calzada - 08/04/2023 10:22 AM EDT Appointment 08/26/23 [...] the department mayassist her. documented in this encounterRiverside [facility] Hospital05-15-2024 Telephone encounter Note * Telephone Encounter [...] the pool so the department mayassist her. [facility] History of Present illness Narrative* Katie Clay, RT(R) - 08/04/2023 9:20 AM EDT Radiology [...] PATIENT PRESENTS WITH AN IMPLANTABLE OR ATTACHED BINDING CUTTER SYNTHETIC CLOTH: No RADIOLOGY DEPARTMENT: General X-ray: Exam(s) Completed: Upper Extremity X- Ray(s): Shoulder, AP / TRUE AP / AXILLARY right PERIPHERAL IV DATA: Not applicable SIGNED BY: RT Val(Katya) August 04, 2023 9:29 AM documented in this encounterRiverside Methodist Hospital05-15-2024 History of Present illness Narrative* Estelita Rivera PA - 08/04/2023 9:15 AM EDT This note was created using CardioFocusriter. 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 Johns Morbid obesity (HCC) Plantar fasciitis [...] shoulder. Normal ROM elbow and wrist. 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 Normal sensationright upper extremity. Pulses 2+. [...] ER evaluation. SHIN George documented in this encounterRiverside [facility] Hospital05-07-2024 Telephone encounter Note * Telephone Encounter - Annemarie Dick PA-C - 07/27/2023 2:55 PM EDT Patient has not been seen in our office in over a year, I did provide her with 1 more refill. She will either need to schedule a follow-up with us and/or discuss with her PCP additional refills of this medication. [facility] Miscellaneous Notes* Telephone Encounter - Annemarie Dick PA-C - 07/27/2023 2:55 PM EDT Patient has not been seen in our office in over a year, I did provide her with 1 more refill. She will either need to schedule a follow-up with us and/or discuss with her PCP additional refills of this medication. documented in this encounterRiverside [facility] Hospital05-07-2024 History of Present illness Narrative* Eulalia Cabrera APRN.WOOL GRADER - 07/27/2023 12:51 PM EDT This note was created using CardioFocusriter. Subjective Michaelle Mays is a 43 year [...] history is provided by the patient. No foundation director was used. Abdominal Pain This is a [...] HPV 04/2019 History of tobacco use Hives Medical Administrative Assistant Dr. Johns Morbid obesity (HCC) Plantar fasciitis [...] treatment with Pepcid 20 mg QD - [place] low residue diet - Follow up in 2 days or sooner if worsening of symptoms Discussed red flags and reasons to seek ED Work note provided Eulalia Cabrera APRN.CNP documented in this encounterRiverside Methodist Hospital04-21-2024 History of Present illness Narrative* Eulalia Cabrera APRN.CNP - 07/11/2023 8:15 AM EDT This note was created using CardioFocusriter. Subjective Michaelle Mays is a 43 year [...] history is provided by the patient. No foundation director was used. Musculoskeletal Problem This is a [...] HPV 04/2019 History of tobacco use Hives Medical Administrative Assistant Dr. Johns Morbid obesity (HCC) Plantar fasciitis [...] derm in August Discussed red flags Eulalia Cabrera APRN.WOOL GRADER documented in this encounterRiverside Methodist Hospital04-10-2024 History of Present illness Narrative* Estelita Rivera PA - 06/30/2023 7:31 AM EDT This note was created using CardioFocusriter. 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 Johns Morbid obesity (HCC) Plantar fasciitis [...] ER evaluation. SHIN George documented in this encounterRiverside Methodist Hospital04-10-2024 Instructions* Patient Instructions* Estelita Rivera PA - 06/30/2023 7:29 AM EDT BRAT DIET (may eat any of the following as tolerated) Bananas Applesauce Wabeno Saltine Crackers Animal Crackers Pretzels Oatmeal Unsweetened Dry Cereal (Rice Krispies, Cheerios) Plain Baked or Boiled Potato Plain White Rice Plain Noodles All clear liquid listed below CLEAR LIQUID DIET hour) Broth Jello Popsicles Pedialyte Gatorade NO Milk NO Dairy Products documented in this encounterRiverside [facility] Hospital03-04-2024 History of Present illness Narrative* Jazz Wright APRN.WOOL GRADER - 05/24/2023 3:00 PM EST 05/24/2023 Patient [...] HPV 04/2019 History of tobacco use Hives Medical Administrative Assistant Dr. Johns Morbid obesity (HCC) Plantar fasciitis [...] Vaccine(1) due on 11/20/2022 Covid-19 Vaccine(5 - season) due on 11/20/2022 DTaP,Tdap,Td Vaccine(2 - [...] symptoms - CONSULT TO DERMATOLOGY Jazz PodlogNEDRA rangel.WOOL GRADER Prescription instructions reviewed with patient as applicable. [...] Level: 3 - Low documented in this encounterRiverside [facility] Hospital03-03-2024 History of Present illness Narrative* Merlyn Medel PA-C - 05/23/2023 8:21 AM EST Images from the original note were not included. This note was created using NoteWriter. Subjective [...] HPV 04/2019 History of tobacco use Hives Medical Administrative Assistant Dr. Johns Morbid obesity (HCC) Plantar fasciitis [...] happened. Merlyn Medel PA-C documented in this encounterRiverside [facility] Hospital02-29-2024 History of Present illness Narrative* Henrry Lacy APRN.WOOL GRADER - 05/20/2023 7:19 AM EST Subjective HPI [...] HPV 04/2019 History of tobacco use Hives Medical Administrative Assistant Dr. 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 Johns Morbid obesity (HCC) Plantar fasciitis [...] external genitalia normal, normal Bartholin's glands, urethra, Privateer's glands, no vulvar lesions, no cervical lesions, [...] up one year or sooner as needed Henrry Vyas MD documented in this encounterRiverside [facility] Hospital02-12-2024 Miscellaneous Notes* Telephone Encounter - Tahira Sy RN - 05/03/2023 9:29 AM EST [facility] 02/05/23 Pharmacy requested refill Requested Prescriptions Pending Prescriptions Disp Refills montelukast (SINGULAIR) 10 mg tablet [Pharmacy Med Name: MONTELUKAST SOD 10 MG TABLET] 90 tablet 3 Sig: take 1 tablet by mouth everyday at bedtime RX INSTRUCTIONS: Patient aware RX will be sent to pharmacy. No need to notify patient. Tahira Sy RN documented in this encounterRiverside Methodist Hospital12-21-2023 Miscellaneous Notes* Addendum Note - Cheng Mcdaniel MD - 03/11/2023 11:38 AM ESTAddended by: CHENG MCDANIEL on: 03/11/2023 11:38 AM Modules accepted: Orders documented in this encounterRiverside Methodist Hospital12-21-2023 History of Present illness Narrative* Cheng Mcdaniel MD - 03/11/2023 11:12 AM EST Chief Complaint Patient presents with: right knee injury: Patient twisted knee this am. Will need at least work excuse for today. CORTEZ Mays is a 42 year old female [...] HPV 04/2019 History of tobacco use Hives Medical Administrative Assistant Dr. Johns Morbid obesity (HCC) Plantar fasciitis [...] ALUMINUM Cheng Mcdaniel MD documented in this encounterRiverside Methodist Hospital12-05-2023 History of Present illness Narrative* Lora March APRN.WOOL GRADER - 02/23/2023 11:08 AM EST SUBJECTIVE: Michaelle [...] HPV 04/2019 History of tobacco use Hives Medical Administrative Assistant Dr. Johns Morbid obesity (HCC) Plantar fasciitis [...] - ICD9: 079.99, ICD10: B34.9 Lora March APRN.WOOL GRADER documented in this encounterRiverside [facility] Hospital09-13-2023 History of Present illness Narrative* Micah [...] provided. Micah Pete MD documented in this encounterRiverside [facility] Hospital09-13-2023 Miscellaneous Notes* Telephone Encounter - Patti Aguilar RN - 12/02/2022 9:36 AM EDT [facility]-02/02/22 Annual appointment scheduled 02/05/23 Patient phones requesting refills as follows: Requested Prescriptions Pending Prescriptions Disp Refills montelukast (SINGULAIR) 10 mg tablet 90 tablet 0 Sig: Take 1 tablet by mouth daily at bedtime. Please review and advise. Patti Aguilar RN documented in this encounterRiverside [facility] Hospital09-11-2023 Miscellaneous Notes* Telephone Encounter - Luisana Dewitt - 11/30/2022 11:12 AM EDT [facility]:02/02/22 Next OV: 02/05/23 Patient phones requesting refills as follows: Requested Prescriptions Pending Prescriptions Disp Refills doxepin capsule 50 mg 30 capsule 1 Sig: Take 1 capsule by mouth daily at bedtime. Please review and advise. Luisana Dewitt documented in this encounterRiverside Methodist Hospital08-28-2023 History of Present illness Narrative* Henrry Lacy APRN.WOOL GRADER - 11/16/2022 12:27 PM EDT Subjective HPI [...] HPV 04/2019 History of tobacco use Hives Medical Administrative Assistant Dr. Johns Morbid obesity (HCC) Plantar fasciitis [...] fluids F/u with pcp if s/s persists Henrry Lacy APRN.WOOL GRADER documented in this encounterRiverside Methodist Hospital08-17-2023 Miscellaneous Notes* Telephone Encounter - Luisana Dewitt - 11/05/2022 9:54 AM EDT [facility]: 02/02/22 Pharmacy phones requesting refills as follows: Requested Prescriptions Pending Prescriptions Disp Refills montelukast (SINGULAIR) 10 mg tablet [Pharmacy Med Name: MONTELUKAST SOD 10 MG TABLET] 90 tablet 0 Sig: TAKE 1 TABLET BY MOUTH EVERYDAY AT BEDTIME Please review and advise. Luisana Dewitt documented in this encounterRiverside [facility] Hospital07-26-2023 History of Present illness Narrative* Treva [...] basis. Treva Reynolds MD documented in this encounterRiverside Methodist Hospital07-14-2023 History of Present illness Narrative* Alondra [...] 02, 2022 2:20 PM documented in this encounterRiverside Methodist Hospital06-19-2023 History of Present illness Narrative* Jazz Wright, MANAGER INFUSION.WOOL GRADER - 09/07/2022 2:03 PM EDT 09/07/2022 Patient presents with: Back Pain: Low left back pain, pulled Wednesday evening Derm Problem: Wants left hand rechecked SUBJECTIVE: This is a 42 year old that is here today for Above Complaints. ONSET: Wednesday Evening LOCATION: low back- midline to left side [...] HPV 04/2019 History of tobacco use Hives Medical Administrative Assistant Dr. Johns Morbid obesity (HCC) Plantar fasciitis [...] which included preparing to see the patient, [id number] patient care, completing clinical documentation, obtaining and/or reviewing separately obtained history, performing a medically appropriate examination, counseling and educating the pat ient/family/caregiver, and ordering medications, tests, or procedures. documented in this encounterRiverside [facility] Hospital05-10-2023 History of Present illness Narrative* Jazz [...] HPV 04/2019 History of tobacco use Hives Medical Administrative Assistant Dr. Johns Morbid obesity (HCC) Plantar fasciitis [...] which included preparing to see the patient, [id number] patient care, completing clinical documentation, obtaining and/or reviewing separately obtained history, performing a medically appropriate examination, and counseling and educating the patient/family/caregiver. documented in this encounterRiverside [facility] Hospital05-08-2023 Instructions* Patient Instructions* Jazz Wright APRN.CNP - 07/27/2022 8:08 AM EDT Follow-up Wednesday documented in this encounterRiverside Methodist Hospital05-08-2023 History of Present illness Narrative* Jazz [...] HPV 04/2019 History of tobacco use Hives Medical Administrative Assistant Dr. Johns Morbid obesity (HCC) Plantar fasciitis [...] which included preparing to see the patient, ervh-mz-glsx patient care, completing clinical documentation, obtaining and/or reviewing separately obtained history, performing a medically appropriate examination, counseling and educating the pat ient/family/caregiver, and ordering medications, tests, or procedures. documented in this encounterRiverside Methodist Hospital05-03-2023 Miscellaneous Notes* Telephone Encounter - Eulalia Cabrera APRN.CNP - 07/22/2022 4:15 PM EDT Speak with patient. In review of Epic, patient has taken Keflex in 2019. Reached out and discussed with patient. Speak with [facility], and they are aware and will now fill for patient. * Telephone Encounter - Sunshine Jewell RN - 07/22/2022 4:07 PM EDT Patient calls to report that [facility] won't dispense the cephalexin as prescribed d/t allergy toPCN. Patient reports that allergy is hives and all over body swelling. Patient asking for another antibiotic to be sent to [facility]. Please call patient back at [phone] once addressed. Sunshine Jewell RN documented in this encounterRiverside Methodist Hospital04-21-2023 Miscellaneous Notes* Telephone Encounter - Nina Austin MA - 07/10/2022 1:30 PM EDT Work excuse faxed to number listed below to the attention of Candie. Nina Austin MA * Telephone Encounter - Henrry Lacy APRN.CNP - 07/10/2022 1:26 PM EDT [...] asking if letter can be faxed to [phone] Att: Candie. Please advise. documented in this encounterRiverside Methodist Hospital02-21-2023 History of Present illness Narrative* Ingrid Ponce LPN - 2022 9:53 AM EST Patient presents for EKG per Dr Johns. Denies any problems at this time. Tolerated procedure well. Ingrid Ponce LPN documented in this encounterRiverside Methodist Hospital02-15-2023 History of Present illness Narrative* Micah Jo MD - 05/06/2022 9:22 AM EST Michaelle Mays is a 41 year old who presents for her annual gynecologic exam. 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 Johns Morbid obesity (HCC) Plantar fasciitis [...] external genitalia normal, normal Bartholin's glands, urethra, Privateer's glands, no vulvar lesions, no cervical lesions, [...] routine health maintenance exams reviewed 4) 5) Miach Jo MD documented in this encounterRiverside [facility] Hospital02-02-2023 History of Present illness Narrative* Katie Clay, RT(R) - 04/23/2022 9:10 AM EST Radiology [...] 23, 2022 9:07 AM documented in this encounterRiverside Methodist Hospital12-16-2022 History of Present illness Narrative* Eulalia Cabrera APRN.WOOL GRADER - 03/06/2022 1:29 PM EST This note was created using CardioFocusriter. Subjective Michaelle Mays is a 41 year [...] history is provided by the patient. No foundation director was used. Neck Pain This is a [...] HPV 04/2019 History of tobacco use Hives Medical Administrative Assistant Dr. Johns Morbid obesity (HCC) Plantar fasciitis [...] Work note Follow up with PCP Eulalia Cabrera APRN.WOOL GRADER documented in this encounterRiverside Methodist Hospital11-14-2022 History of Present illness Narrative* Cele Dillard Pss - 02/02/2022 10:36 AM EST LVM for patient to return call to schedule ANNUAL FOLLOW UP FOR 01/2023 * Veronique Johns MD - 02/02/2022 8:58 AM EST VIRTUAL VISIT PROGRESS NOTE This is a virtual visit using Global Animationz video visit. It required patient-provider interaction for themedical decision making as documented below. HPI February 02, 2022 Michaelle Mays presents for VIRTUAL VISIT follow up. no hives since last seen. 1 or 2 hives at weather change Taking doxepin and singulair. Tried to get EKG- they had scheduled it but they told she had to get it at [facility] and was notable to do it. No [...] intermittently. unsure if exacerbates symptoms. Works at [employer]. NO FMH of angioedema. No liver or [...] Pets in the home: 2 cats Scott: Zciu-ot-ogpt carpeting Air conditioning: No air conditioning Heating: [...] HPV 04/2019 History of tobacco use Hives Medical Administrative Assistant Dr. Johns Morbid obesity (HCC) Plantar fasciitis Primary osteoarthritis of right knee PAST SURGICAL HISTORY Procedure Laterality Date INDUCED HX 2009 LAPAROSCOPY SURG CHOLECYSTECTOMY 2013 Cholecystectomy, lap PAST SURGICAL HISTORY OF 1999 vaginal wart removal VAGINOSCOPY 2017 Social History [...] Abs Lymph 1.00 - 4.00 k/uL 2.78 [place]% % 5.7 Abs [place] <0.87 k/uL 0.45 Eosin% % 2.1 Abs [...] which included preparing to see the patient, kagi-rl-vmfr patient care, completing clinical documentation and ordering medications, tests, or procedures. Veronique Johns MD documented in this encounterRiverside [facility] Hospital09-13-2022 History of Present illness Narrative* Merlyn Medel PA-C - 12/02/2021 3:10 PM EDT This note was created using CardioFocusriter. Subjective Michaelle Mays is a 41 year [...] HPV 04/2019 History of tobacco use Hives Medical Administrative Assistant Dr. Johns Morbid obesity (HCC) Plantar fasciitis [...] agreeable. Merlyn Medel PA-C documented in this encounterRiverside Methodist Hospital07-11-2022 Miscellaneous Notes* Letter - Mammography Coordinator - 09/29/2021 10:37 AM EDT September 29, 2021 PID: [id number] Michaelle Mays [address] [place] [address] Dear Ms. Mays, We are pleased to [...] report [facility] part [facility] permanent medical record and are available for your continuing care. Thank you for allowing us to help in meeting your health care needs. Sincerely, Dr. Ralph Interpreting Radiologist [facility] (Normal over 40) documented in this encounterRiverside Methodist Hospital07-11-2022 History of Present illness Narrative* RT Henrry(R) [...] 29, 2021 7:29 AM documented in this encounterRiverside [facility] Hospital06-13-2022 Miscellaneous Notes* Telephone Encounter - Aye Luis LPN - 09/01/2021 11:37 AM EDT There is a current RX on file with this pharmacy Closed encopunter request documented in this encounterRiverside Methodist Hospital06-07-2022 Instructions* Patient Instructions* Esme Feliz APRN.ALMAS - [...] or dark tarry stools. documented in this encounterRiverside Methodist Hospital06-07-2022 History of Present illness Narrative* Esme Feliz APRN.ALMAS - 08/26/2021 12:03 PM EDT Subjective The history is provided by the patient. No foundation director was used. CORTEZ Michaelle Mays is a 41 year old [...] HPV 04/2019 History of tobacco use Hives Medical Administrative Assistant Dr. Johns Morbid obesity (HCC) Plantar fasciitis Primary osteoarthritis of right knee I have confirmed and edited as necessary, the [facility] Review of Systems Constitutional: Negative for [...] evaluation. Esme Feliz APRN.ALMAS documented in this encounterRiverside Methodist Hospital05-20-2022 Instructions* Patient Instructions* Veronique Johns MD [...] help prevent mucus build-up. documented in this encounterRiverside Methodist Hospital05-20-2022 Nurse Note* Patti Aguilar RN - 08/08/2021 3:30 PM EDT Attempted to contact patient on 08/08/2021 Result: left message on patient's voicemail reminding of virtual visit appointment documented in this encounterRiverside Methodist Hospital05-20-2022 History of Present illness Narrative* Veronique Johns MD - 08/08/2021 11:59 AM EDT VIRTUAL VISIT PROGRESS NOTE This is a virtual visit using [employer] video visit. It required patient-provider interaction for [...] in the last 10 months. 09/21/18 - Micahelle Mays is a 38 year old female [...] intermittently. unsure if exacerbates symptoms. Works at [employer]. NO FMH of angioedema. 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 Veronique Johns MD documented in this encounterRiverside [facility] Hospital05-02-2022 Miscellaneous Notes* Telephone Encounter - Luisana Renate - 07/21/2021 9:27 AM EDT [facility]: 04/26/20 Next OV: 08/08/21 Pharmacy phones requesting refills as follows: Pending Prescriptions Disp Refills MONTELUKAST 10 MG TABLET 30 tablet 0 Sig: TAKE 1 TABLET BY MOUTH EVERYDAY AT BEDTIME SAVANA: Yes Please review and advise. Luisana Dewitt documented in this encounterRiverside [facility] Hospital02-03-2021 History of Present illness Narrative* Anastacio Richard Tech (Rt) - 04/24/2020 1:30 PM EST Radiology Service [...] 24, 2020 1:32 PM documented in this encounterRiverside Methodist Hospital12-17-2020 History of Present illness Narrative* Katie ClayRt)Kiko - 03/07/2020 9:30 AM EST Radiology Service [...] 07, 2020 9:29 AM documented in this encounterRiverside [facility] Hospital11-26-2013 History of Past illness Narrative* Problem Noted Date Resolved Date Adult BMI 30+ 02/14/2013 07/02/2017 documented as of this encounter (statuses as of 07/21/2021) [place] [id number] History of Past illness Narrative* Problem Noted Date Resolved Date Adult BMI 30+ 02/14/2013 07/02/2017 documented as of this encounter (statuses as of 08/08/2021) [place] [id number] History of Past illness Narrative* Problem Noted Date Resolved Date Adult BMI 30+ 02/14/2013 07/02/2017 documented as of this encounter (statuses as of 08/26/2021) [place] [address]-26-2013 History of Past illness Narrative* Problem Noted Date Resolved Date Adult BMI 30+ 02/14/2013 07/02/2017 documented as of this encounter (statuses as of 09/01/2021) [place] [address]-26-2013 History of Past illness Narrative* Problem Noted Date Resolved Date Adult BMI 30+ 02/14/2013 07/02/2017 documented as of this encounter (statuses as of 09/09/2021) [place] [address]-26-2013 History of Past illness Narrative* Problem Noted Date Resolved Date Adult BMI 30+ 02/14/2013 07/02/2017 documented as of this encounter (statuses as of 09/30/2021) [address]26-2013 History of Past illness Narrative* Problem Noted Date Resolved Date Adult BMI 30+ 02/14/2013 07/02/2017 documented as of this encounter (statuses as of 10/01/2021) [address]26-2013 History of Past illness Narrative* Problem Noted Date Resolved Date Adult BMI 30+ 02/14/2013 07/02/2017 documented as of this encounter (statuses as of 12/02/2021) [place] [address]-26-2013 History of Past illness Narrative* Problem Noted Date Resolved Date Adult BMI 30+ 02/14/2013 07/02/2017 documented as of this encounter (statuses as of 02/02/2022) [place] [address]-26-2013 History of Past illness Narrative* Problem Noted Date Resolved Date Adult BMI 30+ 02/14/2013 07/02/2017 documented as of this encounter (statuses as of 03/04/2022) [place] [address]-26-2013 History of Past illness Narrative* Problem Noted Date Resolved Date Adult BMI 30+ 02/14/2013 07/02/2017 documented as of this encounter (statuses as of 03/06/2022) [place] [address]-26-2013 History of Past illness Narrative* Problem Noted Date Resolved Date Adult BMI 30+ 02/14/2013 07/02/2017 documented as of this encounter (statuses as of 04/15/2022) [place] [address]-26-2013 History of Past illness Narrative* Problem Noted Date Resolved Date Adult BMI 30+ 02/14/2013 07/02/2017 documented as of this encounter (statuses as of 04/20/2022) [place] [address]-26-2013 History of Past illness Narrative* Problem Noted Date Resolved Date Adult BMI 30+ 02/14/2013 07/02/2017 documented as of this encounter (statuses as of 05/06/2022) [place] [address]-26-2013 History of Past illness Narrative* Problem Noted Date Resolved Date Adult BMI 30+ 02/14/2013 07/02/2017 documented as of this encounter (statuses as of 05/07/2022) [place] [address]-26-2013 History of Past illness Narrative* Problem Noted Date Resolved Date Adult BMI 30+ 02/14/2013 07/02/2017 documented as of this encounter (statuses as of 2022) [address]26-2013 History of Past illness Narrative* Problem Noted Date Resolved Date Adult BMI 30+ 02/14/2013 07/02/2017 documented as of this encounter (statuses as of 05/14/2022) [address]26-2013 History of Past illness Narrative* Problem Noted Date Resolved Date Adult BMI 30+ 02/14/2013 07/02/2017 documented as of this encounter (statuses as of 07/10/2022) [place] [address]-26-2013 History of Past illness Narrative* Problem Noted Date Resolved Date Adult BMI 30+ 02/14/2013 07/02/2017 documented as of this encounter (statuses as of 07/23/2022) [place] [address]-26-2013 History of Past illness Narrative* Problem Noted Date Resolved Date Adult BMI 30+ 02/14/2013 07/02/2017 documented as of this encounter (statuses as of 07/27/2022) [address]26-2013 History of Past illness Narrative* Problem Noted Date Resolved Date Adult BMI 30+ 02/14/2013 07/02/2017 documented as of this encounter (statuses as of 07/29/2022) [place] [address]-26-2013 History of Past illness Narrative* Problem Noted Date Resolved Date Adult BMI 30+ 02/14/2013 07/02/2017 documented as of this encounter (statuses as of 08/24/2022) [place] [address]-26-2013 History of Past illness Narrative* Problem Noted Date Resolved Date Adult BMI 30+ 02/14/2013 07/02/2017 documented as of this encounter (statuses as of 09/08/2022) [address]26-2013 History of Past illness Narrative* Problem Noted Date Diagnosed Date Resolved Date Adult BMI 30+ 02/14/2013 07/02/2017 documented as of this encounter (statuses as of 10/15/2022) [place] [address]-26-2013 History of Past illness Narrative* Problem Noted Date Diagnosed Date Resolved Date Adult BMI 30+ 02/14/2013 07/02/2017 documented as of this encounter (statuses as of 11/05/2022) [place] [address]-26-2013 History of Past illness Narrative* Problem Noted Date Diagnosed Date Resolved Date Adult BMI 30+ 02/14/2013 07/02/2017 documented as of this encounter (statuses as of 11/16/2022) [place] [address]-26-2013 History of Past illness Narrative* Problem Noted Date Diagnosed Date Resolved Date Adult BMI 30+ 02/14/2013 07/02/2017 documented as of this encounter (statuses as of 11/30/2022) [address]26-2013 History of Past illness Narrative* Problem Noted Date Diagnosed Date Resolved Date Adult BMI 30+ 02/14/2013 07/02/2017 documented as of this encounter (statuses as of 11/30/2022) [facility]-26-2013 History of Past illness Narrative* Problem Noted Date Diagnosed Date Resolved Date Adult BMI 30+ 02/14/2013 07/02/2017 documented as of this encounter (statuses as of 12/02/2022) [facility]-26-2013 History of Past illness Narrative* Problem Noted Date Diagnosed Date Resolved Date Adult BMI 30+ 02/14/2013 07/02/2017 documented as of this encounter (statuses as of 12/03/2022) [facility]-26-2013 History of Past illness Narrative* Problem Noted Date Diagnosed Date Resolved Date Adult BMI 30+ 02/14/2013 07/02/2017 documented as of this encounter (statuses as of 01/24/2023) [place] [address]-26-2013 History of Past illness Narrative* Problem Noted Date Diagnosed Date Resolved Date Adult BMI 30+ 02/14/2013 07/02/2017 documented as of this encounter (statuses as of 01/24/2023) [place] [address]-26-2013 History of Past illness Narrative* Problem Noted Date Diagnosed Date Resolved Date Adult BMI 30+ 02/14/2013 07/02/2017 documented as of this encounter (statuses as of 02/23/2023) [place] [address]-26-2013 History of Past illness Narrative* Problem Noted Date Diagnosed Date Resolved Date Adult BMI 30+ 02/14/2013 07/02/2017 documented as of this encounter (statuses as of 03/12/2023) [facility]-26-2013 History of Past illness Narrative* Problem Noted Date Diagnosed Date Resolved Date Adult BMI 30+ 02/14/2013 07/02/2017 documented as of this encounter (statuses as of 05/03/2023) [address]26-2013 History of Past illness Narrative* Problem Noted Date Diagnosed Date Resolved Date Adult BMI 30+ 02/14/2013 07/02/2017 documented as of this encounter (statuses as of 05/13/2023) [address]26-2013 History of Past illness Narrative* Problem Noted Date Diagnosed Date Resolved Date Adult BMI 30+ 02/14/2013 07/02/2017 documented as of this encounter (statuses as of 05/20/2023) [address]26-2013 History of Past illness Narrative* Problem Noted Date Diagnosed Date Resolved Date Adult BMI 30+ 02/14/2013 07/02/2017 documented as of this encounter (statuses as of 05/23/2023) [address]26-2013 History of Past illness Narrative* Problem Noted Date Diagnosed Date Resolved Date Adult BMI 30+ 02/14/2013 07/02/2017 documented as of this encounter (statuses as of 05/24/2023) [address]26-2013 History of Past illness Narrative* Problem Noted Date Diagnosed Date Resolved Date Adult BMI 30+ 02/14/2013 07/02/2017 documented as of this encounter (statuses as of 06/30/2023) [place] [address]26-2013 History of Past illness Narrative* Problem Noted Date Diagnosed Date Resolved Date Adult BMI 30+ 02/14/2013 07/02/2017 documented as of this encounter (statuses as of 07/11/2023) [facility] note* Diagnosis Urticaria Urticaria, unspecified Angioedema, subsequent encounter Cough documented in this encounter [facility] note* Diagnosis Encounter for long-term (current) use of medications- Primary Encounter for long-term (current) use of other medications Urticaria Urticaria, unspecified Angioedema, subsequent encounter Cough [facility] Diagnosis Nausea- Primary Nausea alone Diarrhea, unspecified type Abdominal cramping Abdominal pain, unspecified site [facility] Diagnosis Primary osteoarthritis of right knee Primary localized osteoarthrosis, lower leg [facility]* Diagnosis Encounter for screening mammogram for malignant neoplasm of breast Other screening mammogram [facility]* Diagnosis Diarrhea, unspecified type- Primary documented in this encounter [facility] note* Diagnosis Urticaria- Primary Urticaria, unspecified Angioedema, subsequent encounter Encounter for long-term (current) use of medications Encounter for long-term (current) use of other medications [facility]* Diagnosis Strain of neck muscle, initial encounter- Primary [facility] Diagnosis Right knee pain, unspecified chronicity- Primary [facility] Diagnosis Primary osteoarthritis of right knee Primary localized osteoarthrosis, lower leg [facility] Diagnosis Encounter for screening mammogram for malignant neoplasm of breast- Primary Other screening mammogram Women's annual routine gynecological examination documented in this encounter [facility] note* Diagnosis Medication refill Issue of repeat prescriptions Encounter for surveillance of contraceptive pills Surveillance of previously prescribed contraceptive pill documented in this encounter [facility] note* Diagnosis Encounter for long-term (current) use of medications Encounter for long-term (current) use of other medications [facility]* Diagnosis Skin infection- Primary Unspecified local infection of skin and subcutaneous tissue [facility] Diagnosis Skin infection- Primary Unspecified local infection of skin and subcutaneous tissue Blister of skin [facility] Diagnosis Acute left-sided low back pain without sciatica- Primary Blister of left hand, initial encounter [facility] Diagnosis Impacted cerumen of left ear- Primary Impacted cerumen [facility] Diagnosis Urticaria Urticaria, unspecified Angioedema, subsequent encounter Cough [facility] Diagnosis Fatigue, unspecified type- Primary [facility] Diagnosis Primary osteoarthritis of right knee Primary localized osteoarthrosis, lower leg [facility] Diagnosis URI, acute- Primary Acute upper respiratory infections of unspecified site [facility]* Diagnosis Right knee pain, unspecified chronicity [facility] Diagnosis Encounter for screening mammogram for malignant neoplasm of breast Other screening mammogram [facility] Diagnosis Viral illness- Primary Unspecified viral infection, in conditions classified elsewhere and of unspecified site [facility] Diagnosis Acute pain of right knee- Primary [facility] Diagnosis Urticaria Urticaria, unspecified Angioedema, subsequent encounter Cough [facility] Diagnosis Encounter for gynecological examination (general) (routine) without abnormal findings- Primary Medication refill Issue of repeat prescriptions Encounter for surveillance of contraceptive pills Surveillance of previously prescribed contraceptive pill [facility] Diagnosis URI, acute- Primary Acute upper respiratory infections of unspecified site [facility] Diagnosis Blister of left hand, initial encounter- Primary [facility] Diagnosis Blister (nonthermal) of left hand, sequela- Primary [facility] Diagnosis Diarrhea, unspecified type- Primary [facility] Diagnosis Blister of left hand excluding fingers, subsequent encounter- Primary [facility] Diagnosis Primary osteoarthritis of right knee Primary localized osteoarthrosis, lower leg [facility] Diagnosis Encounter for screening mammogram for malignant neoplasm of breast- Primary Other screening mammogram [facility] Diagnosis Primary osteoarthritis of right knee Primary localized osteoarthrosis, lower leg [facility] Diagnosis Pain of upper abdomen- Primary Abdominal pain, other specified site [facility] Diagnosis Acute pain of right shoulder- Primary Acute pain of right shoulder [facility] Diagnosis Acute pain of right shoulder- Primary [facility] Diagnosis Primary osteoarthritis of right knee Primary localized osteoarthrosis, lower leg [facility] Diagnosis Fatigue, unspecified type- Primary [facility] Diagnosis Encounter for screening mammogram for malignant neoplasm of breast Other screening mammogram [facility] Diagnosis Acute pain of right shoulder [facility] Diagnosis Wrist injury, right, initial encounter [facility] Diagnosis Strain of neck muscle, initial encounter- Primary [facility] Diagnosis Viral URI- Primary Acute upper respiratory infections of unspecified site Sinus congestion Other diseases of nasal cavity and sinuses [facility] Diagnosis Urticaria- Primary Urticaria, unspecified Angioedema, subsequent encounter Allergy to penicillin Personal history of allergy to penicillin [facility] Diagnosis Allergy to penicillin- Primary Personal history of allergy to penicillin Urticaria Urticaria, unspecified Angioedema, subsequent encounter [facility] noteNo assessment information availableWThe [facility] Work Phone: Hospital course Narrative No data available for this section [facility] Hospital Discharge instructionsAdditional Instructions Your evaluation [...] if your symptoms worsen or new symptoms develop.[facility] Work Phone: Progress note Author Kunal Adams [facility] Note Date/Time December 12, 2024 6:42am [facility] [address], [address] [place] [address] OFFICE VISIT Date of Service: 12/12/24 MR#: [id number] Acct: [id number] Name: MICHAELLE MAYS Sincere Rep #: [id number] : 1980 Provider: SHIN [employer] Age/Sex: 44/F Location: [facility] Status: Signed Intake Vital Signs 11/01/24 19:24 12/12/24 06:15 Height 5 ft 5 in 5 ft 5 in Weight: 260 lb BMI 43.2 BP 122/62 H Blood Pressure Location Lt brachial Position Sitting Pulse 108 H Pulse Source Monitor Temp 97.7 F L Temp Source Oral Pulse Oximetry (%) 98 Oxygen Delivery Method room air Intake Visit Reasons: FATIGUE, HEADACHE Chief Complaint: Headache Accompanied by: Self Allergies amoxicillin (From Augmentin) Allergy (Intermediate, Verified 12/12/24 06:09) Upset Stomach clavulanic acid (From Augmentin) Allergy (Intermediate, Verified 12/12/24 06:09) Upset Stomach HAROLDO Inhibitors Allergy (Unknown, Verified 12/12/24 06:09) PT UNSURE OF REACTION Medications ?Medication ?Instructions ?Recorded ?Confirmed ?Type doxepin 25 mg capsule 25 mg PO QHS 12/03/23 History montelukast 10 mg tablet 10 mg PO QHS 12/03/23 History (Singulair) cetirizine 10 mg tablet 10 mg PO QDAY 02/15/2412/12 History cyclobenzaprine 10 mg tablet 10 mg PO HS PRN muscle sp asm #14 06/14/24 12/12/24 Rx tabs benzonatate 200 mg capsule 200 mg PO TID PRN cough #20 caps 12/12/24 12/12/24 Rx methylprednisolone 4 mg tablets in See Rx Instructions PO PER PKG DIR 12/12/24 12/12/24 Rx a dose pack (Medrol (Ifrah)) #21 tabs norgestrel 0.075 mg tablet (Opill) 1 tab PO QDAY 12/1212/12/24 History Nurse's Note: Fatigued, feeling run down, headache, brain fog X 1 day. PFSH Medical History Thoracic myofascial strain Cervical strain Right hip pain Knee pain, right Angio-edema Surgical History Hx of cholecystectomy Social History household members: spouse Smoking Status: Former smoker HPI HPI Chief Complaint: Headache Details: MICHAELLE MAYS, is a 44 F who presents to the office today [facility] for approximately 24-hour history of persistent fatigue and headache and occasional chills/cough; no complaints of fever, chills, myalgias, congestion/ runny nose, nausea, and diarrhea. Patient notes no complaints of chest pain or shortness of breath or dyspnea on exertion. Several close contactsrecently dx?d w/ similar URI complaints. No [id number]-[id number] taken to assist. Noother associated symptoms and no other alleviating/aggravating factors. ROS Const Constitutional: No other (As above) Exam Const General: cooperative, healthy appearing and no acute distress Orientation: alert, awake HENMT Head: normal to inspection Ears: hearing grossly normal bilaterally, external ears normal, TM's normal bilaterally and EAC's normal Nose: external nose normal, nares normal, septum normal and no nasal discharge Face and sinus: normal facial exam, sinuses nontender and face symmetric Mouth: oral mucosae normal, lip normal, tongue normal and oropharynx normal Throat: posterior oropharynx normal, tonsils normal, uvula midline and no postnasal drainage Eyes General: appearance normal, both eyes and all related structures Neck Neck: normal visual inspection, full ROM, no lymphadenopathy, no meningeal signsand supple Neck mass: No Thyroid: thyroid normal Lymphatic: no lymphadenopathy noted Chest Chest palpation & inspection: normal inspection of the chest Resp Effort & Inspection: normal respiratory effort, able to speak in complete sentences and no unsolicited cough during today's exam Auscultation: Bilateral: Clear to Auscultation Cardio Palpation: normal PMI Rate: tachycardic Rhythm: regular rhythm Heart Sounds: S1 normal, S2 normal Pulses: radial pulses present Skin General: no rashes or lesions noted Neuro General: patient alert, patient awake Cognition: normal cognition Speech: speech normal Psych Appearance: grossly normal Mental Status: mental status grossly normal Mood: congruent mood Affect: normal affect Speech and Movement: speech and movement normal Attitude: cooperative Diagnoses Contact with or exposure to other viral diseases Z20.828 URI (upper respiratory infection) J06.9 Assessment and Plan Assessment and Plan (1) Contact with or exposure to other viral diseases: Status: Acute (2) URI (upper respiratory infection): Status: Acute Plan: See POC results. Medrol and Benzonatate as prescribed today. Supportive measures as instructed today. Follow-up with PCP in 5 to 7 days should symptoms not improve, ED sooner shouldsymptoms worsen or any other concerns develop. Pt states acknowledging understanding all the above. Results POC TONE Covid FluAB PCR POC Tone Covid PCR Not Detected Last Edit by Luisana Rose MA on 12/12/24 06:47 POC TONE FLU NOT DETECTED FLU A&B Last Edit by Luisana Rose MA on 12/12/24 06:47 Coding Level of Care Code Off vis,est,level 3 Assessment and Plan Assessment and Plan Orders: Orders POC Tone Covid FLUAB PCR Today Medications: New benzonatate 200 mg PO TID PRN 20 caps 0RF cough methylprednisolone (Medrol (Ifrah)) PO PER PKG DIR 21 tabs 0RF 12/12/24 0650 <Electronically signed by Kunal MELISSA> Date _ Kunal MELISSA Cosigner Signature: Date (if applicable) CC: ~ [place] Work Phone: [employer] for referral (narrative)* Outpatient Procedure (Routine) - Pending Review Specialty Diagnoses / Procedures Referred By Vandana interiano Referred To Contact [facility] Diagnoses Encounter for long-term (current) use of medications Procedures ECG COMPLETE ECG ROUTINE ECG W/LEAST 12 LDS W/I&[place] [address] [place] [address] [facility] [place] [address] [place] [address] Referral ID Status Reason Start Date Expiration Date Visits Requested Visits Authorized [id number] Pending Review Auto-Generat ed Referral 08/08/2021 08/08/2022 1 1 [facility] for referral (narrative)* Diagnostic Procedure Only (Routine) - Closed Specialty Diagnoses / Procedures Referred By Vandana interiano Referred To Contact [facility] Diagnoses Encounter for screening mammogram for malignant neoplasm of breast Procedures JEN SCREENING W CHRISTOPHER SCREENING DIGITAL BREAST TOMOSYNTHESIS BI SCREENING MAMMOGRAPHY BI 2-VIEW BREAST INC CAD Micah Jo MD [address] [address] [facility] [address] [place] [address] Referral ID Status Reason Start Date Expiration Date V isits Requested Visits Authorized [id number] Closed Auto-Generate d Referral 05/05/2021 06/04/2022 1 1 [facility] for referral (narrative)* Outpatient Procedure (Routine) - Pending Review Specialty Diagnoses / Procedures Referred By Contac t Referred To Contact [facility] Diagnoses Encounter for long-term (current) use of medications Procedures ECG COMPLETE ECG ROUTINE ECG W/LEAST 12 LDS W/I&[place] [address] [place] [address] [facility] [place] [address] [place] [address] Referral ID Status Reason Start Date Expiration Date Visits Requested Visits Authorized [id number] Pending Review Auto-Generat ed Referral 2 02/02/2023 1 1 [facility] for referral (narrative)* Diagnostic Procedure Only (Routine) - Pending Review Specialty Diagnoses / Procedures Referred By Contac t Referred To Contact [facility] Diagnoses Right knee pain, unspecified chronicity Procedures XR KNEE GENERAL 4V AP BOTH/PA BOTH/LAT/MERC RIGHT RADIOLOGIC EXAM KNEE COMPLETE 4/MORE VIEWS Arthur Krishnan MD [address] [place] [address] Xr Imaging Referral ID Status Reason Start Date Expiration Date Visits Requested Visits Authorized [id number] Pending Review Auto-Generat ed Referral 04/15/2022 05/15/2023 1 1 [facility] for referral (narrative)* Diagnostic Procedure Only (Routine) - Pending Review Specialty Diagnoses / Procedures Referred By Vandana t Referred To Contact BR IMAGING Diagnoses Encounter for screening mammogram for malignant neoplasm of breast Procedures JEN SCREENING W CHRISTOPHER SCREENING DIGITAL BREAST TOMOSYNTHESIS BI SCREENING MAMMOGRAPHY BI 2-VIEW BREAST INC Micah Avendano MD [address] [address] [facility] [address] [place] [address] Referral ID Status Reason Start Date Expiration Date Visits Requested Visits Authorized [id number] Pending Review Auto-Generat ed Referral 05/06/2022 06/05/2023 1 1 [facility] for referral (narrative)* Diagnostic Procedure Only (Routine) - Closed Specialty Diagnoses / Procedures Referred By Vandana t Referred To Contact XR IMAGING Diagnoses Right knee pain, unspecified chronicity Procedures XR KNEE GENERAL 4V AP BOTH/PA BOTH/LAT/MERC RIGHT RADIOLOGIC EXAM KNEE COMPLETE 4/MORE VIEWS Arthur Krishnan MD [address] [id number] Xr Imaging [id number] Referral ID Status Reason Start Date Expiration Date V isits Requested Visits Authorized [id number] Closed Auto-Generate d Referral 04/15/2022 05/15/2023 1 1 [facility] for referral (narrative)* Diagnostic Procedure Only (Routine) - Closed Specialty Diagnoses / Procedures Referred By Conttammy t Referred To Contact BR IMAGING Diagnoses Encounter for screening mammogram for malignant neoplasm of breast Procedures JEN SCREENING W CHRISTOPHER SCREENING DIGITAL BREAST TOMOSYNTHESIS BI SCREENING MAMMOGRAPHY BI 2-VIEW BREAST INC Micah Avendano MD [address] [address] [facility] [address] [place] [address] Referral ID Status Reason Start Date Expiration Date V isits Requested Visits Authorized [id number] Closed Auto-Generate d Referral 05/06/2022 06/05/2023 1 1 [facility] for referral (narrative)* Diagnostic Procedure Only (Routine) - Pending Review Specialty Diagnoses / Procedures Referred By Vandana interiano Referred To Contact BR IMAGING Diagnoses Encounter for screening mammogram for malignant neoplasm of breast Procedures JEN SCREENING W CHRISTOPHER SCREENING DIGITAL BREAST TOMOSYNTHESIS BI SCREENING MAMMOGRAPHY BI 2-VIEW BREAST INC CAD Micah Jo MD [address] [address] [facility] [address] [place] [address] Referral ID Status Reason Start Date Expiration Date Visits Requested Visits Authorized [id number] Pending Review Auto-Generat ed Referral 07/14/2023 08/12/2024 1 1 [facility] for referral (narrative)* Diagnostic Procedure Only (Urgent) - Closed Specialty Diagnoses / Procedures Referred By Vandana interiano Referred To Contact XR IMAGING Diagnoses Acute pain of right shoulder Procedures XR SHOULDER GENERAL 3V OR MORE AP/TRUE AP/OTHER RIGHT RADEX SHOULDER COMPLETE MINIMUM 2 VIEWS [facility] [address] [place] [address] [place] [address] Referral ID Status Reason Start Date Expiration Date V isits Requested Visits Authorized [id number] Closed Auto-Generate d Referral 08/04/2023 09/02/2024 1 1 [facility] for referral (narrative)No reason for referral information availableWThe [facility] Work Phone: Reason for visit Narrative* Diagnostic Procedure Only (Routine) - Closed Specialty Diagnoses / Procedures Referred By Vandana interiano Referred To Contact BR IMAGING Diagnoses Encounter for screening mammogram for malignant neoplasm of breast Procedures JEN SCREENING W CHRISTOPHER SCREENING DIGITAL BREAST TOMOSYNTHESIS BI SCREENING MAMMOGRAPHY BI 2-VIEW BREAST INC Micah Avendano MD [address] [address] [facility] [address] [place] [address] Referral ID Status Reason Start Date Expiration Date V isits Requested Visits Authorized [id number] Closed Auto-Generate d Referral 05/05/2021 06/04/2022 1 1 [facility] for visit Narrative* Diagnostic Procedure Only (Routine) - Closed Specialty Diagnoses / Procedures Referred By Contac t Referred To Contact XR IMAGING Diagnoses Right knee pain, unspecified chronicity Procedures XR KNEE GENERAL 4V AP BOTH/PA BOTH/LAT/MERC RIGHT RADIOLOGIC EXAM KNEE COMPLETE 4/MORE VIEWS Arthur Krishnan MD [address] [place] [address] [place] [address] Referral ID Status Reason Start Date Expiration Date V isits Requested Visits Authorized [id number] Closed Auto-Generate d Referral 04/15/2022 05/15/2023 1 1 [facility] for visit Narrative* Diagnostic Procedure Only (Routine) - Closed Specialty Diagnoses / Procedures Referred By Contac t Referred To Contact BR IMAGING Diagnoses Encounter for screening mammogram for malignant neoplasm of breast Procedures JEN SCREENING W CHRISTOPHER SCREENING DIGITAL BREAST TOMOSYNTHESIS BI SCREENING MAMMOGRAPHY BI 2-VIEW BREAST INC CAD Micah Jo MD [address] [address] [facility] [address] [place] [address] Referral ID Status Reason Start Date Expiration Date V isits Requested Visits Authorized [id number] Closed Auto-Generate d Referral 05/06/2022 06/05/2023 1 1 [facility] for visit Narrative* Diagnostic Procedure Only (Routine) - Closed Specialty Diagnoses / Procedures Referred By Contac t Referred To Contact BR IMAGING Diagnoses Encounter for screening mammogram for malignant neoplasm of breast Procedures JEN SCREENING W CHRISTOPHER SCREENING DIGITAL BREAST TOMOSYNTHESIS BI SCREENING MAMMOGRAPHY BI 2-VIEW BREAST INC CAD Micah Jo MD [address] [address] [facility] [address] [place] [address] Referral ID Status Reason Start Date Expiration Date V isits Requested Visits Authorized [id number] Closed Auto-Generate d Referral 07/14/2023 08/12/2024 [facility] Procedure Only (Urgent) - Closed Specialty Diagnoses / Procedures Referred By Contac t Referred To Contact XR IMAGING Diagnoses Acute pain of right shoulder Procedures XR SHOULDER GENERAL 3V OR MORE AP/TRUE AP/OTHER RIGHT RADEX SHOULDER COMPLETE MINIMUM 2 VIEWS [facility] [address] [place] [address] [place] [address] Referral ID Status Reason Start Date Expiration Date V isits Requested Visits Authorized [id number] Closed Auto-Generate d Referral 08/04/2023 09/02/2024 1 1 [facility] Summary Purpose Family History No Family History Records Found No data available for this section No Family History Records FoundNo Family History Records FoundNo Family History Records Found Advance Directives Advance Directive Response Recorded Date/ Time Do you have a Healthcare Power of Solid Fiber Paster Operator? No November 01, 2024 7:52pm Reason for Referral Specialty Diagnoses / Procedures Referred By Contac t Referred To Contact Dermatology Diagnoses Blister (nonthermal) of left hand, sequela Procedures CONSULT TO DERMATOLOGY [employer], NEDRA [employer] [address] [place] [address] Referral ID Status Reason Start Date Expiration Date Visits Requested Visits Authorized [id number] Ref Not Required PCP Requested Referral 05/24/2023 05/23/2024 1 1 Specialty Diagnoses / Procedures Referred By Contac t Referred To Contact Orthopedics Diagnoses Acute pain of right shoulder Procedures CONSULT TO ORTHOPAEDICS OFFICE/OUTPATIENT NEW HIGH MDM 60 MINUTES [facility] [address] [place] [address] Referral ID Status Reason Start Date Expiration Date Visits Requested Visits Authorized [id number] Authorized PCP Requested Referral 08/04/2023 08/03/2024 1 1 Specialty Diagnoses / Procedures Referred By Contac t Referred To Contact XR IMAGING Diagnoses Acute pain of right shoulder Procedures XR SHOULDER GENERAL 3V OR MORE AP/TRUE AP/OTHER RIGHT RADEX SHOULDER COMPLETE MINIMUM 2 VIEWS [facility] [address] [place] [address] [place] [address] Referral ID Status Reason Start Date Expiration Date V isits Requested Visits Authorized [id number] Closed Auto-Generate d Referral 08/04/2023 09/02/2024 1 1 Chief Complaint and Reason for Visit Chief Complaint Admit Date R SHOULDER/NECK PAIN June 14, 2024 11 :20am Fatigue June 27, 2024 6:11 am SCREENING October 09, 2024 12:1 4pm Reason for Visit Admit Date Cervical strain June 14, 2024 11: 20am Thoracic myofascial strain June 14, 2 025 11:20am Fatigue June 27, 2024 6:11 am Chief Complaint Admit Date SCREENING October 09, 2024 12:1 4pm fall November 01, 2024 7: 22pm Chief Complaint Admit Date SCREENING October 09, 2024 12:1 4pm fall November 01, 2024 7: 22pm DIZZINESS November 17, 2024 2: 39pm Chief Complaint Admit Date SCREENING October 09, 2024 12:1 4pm fall November 01, 2024 7: 22pm DIZZINESS November 17, 2024 2: 39pm DIZZINESS November 17, 2024 2: 58pm FATIGUE, HEADACHE December 12, 2024 6:09am Additional Source Comments INFORMATION SOURCE (unrecogn ized section and content) DATE CREATED AUTHOR 09/14/2017 [facility] ([place]) DATE CREATED AUTHOR AUTHOR'S ORGANIZ ATION 11/01/2024 [facility] DATE CREATED AUTHOR AUTHOR'S ORGANIZ ATION 12/21/2024 [facility] DATE CREATED AUTHOR AUTHOR'S ORGANIZ ATION 12/22/2024 [facility] Source Comments (unrecognize d section and content) In the event this informatio n is protected by the Federal Confidentiality of Alcohol and Drug Abuse Patient Records regulations: The Federal rules restrict any use of the information to criminally investigate or prosecute any alcohol or drug abuse patient.[facility] the event this information is protected by the Federal Confidentiality of Alcohol and Drug Abuse Patient Records regulations: The Federal rules restrict any use of the information to criminally investigate or prosecute any alcohol or drug abuse patient.[facility] the event this information is protected by the Federal Confidentiality of Alcohol and Drug Abuse Patient Records regulations: The Federal rules restrict any use of the information to criminally investigate or prosecute any alcohol or drug abuse patient.[facility]In the event this information is protected by the Federal Confidentiality of Alcohol and Drug Abuse Patient Records regulations: The Federal rules restrict any use of the information to criminally investigate or prosecute any alcohol or drug abuse patient.[facility]In the event this information is protected by the Federal Confidentiality of Alcohol and Drug Abuse Patient Records regulations: The Federal rules restrict any use of the information to criminally investigate or prosecute any alcohol or drug abuse patient.[facility] the event this information is protected by the Federal Confidentiality of Alcohol and Drug Abuse Patient Records regulations: The Federal rules restrict any use of the information to criminally investigate or prosecute any alcohol or drug abuse patient.[facility] the event this information is protected by the Federal Confidentiality of Alcohol and Drug Abuse Patient Records regulations: The Federal rules restrict any use of the information to criminally investigate or prosecute any alcohol or drug abuse patient.[facility]In the event this information is protected by the Federal Confidentiality of Alcohol and Drug Abuse Patient Records regulations: The Federal rules restrict any use of the information to criminally investigate or prosecute any alcohol or drug abuse patient.[facility] HospitalIn the event this information is protected by the Federal Confidentiality of Alcohol and Drug Abuse Patient Records regulations: The Federal rules restrict any use of the information to criminally investigate or prosecute any alcohol or drug abuse patient.[facility]In the event this information is protected by the Federal Confidentiality of Alcohol and Drug Abuse Patient Records regulations: The Federal rules restrict any use of the information to criminally investigate or prosecute any alcohol or drug abuse patient.[facility]In the event this information is protected by the Federal Confidentiality of Alcohol and Drug Abuse Patient Records regulations: The Federal rules restrict any use of the information to criminally investigate or prosecute any alcohol or drug abuse patient.[facility] HospitalIn the event this information is protected by the Federal Confidentiality of Alcohol and Drug Abuse Patient Records regulations: The Federal rules restrict any use of the information to criminally investigate or prosecute any alcohol or drug abuse patient.[facility] HospitalIn the event this information is protected by the Federal Confidentiality of Alcohol and Drug Abuse Patient Records regulations: The Federal rules restrict any use of the information to criminally investigate or prosecute any alcohol or drug abuse patient.[facility] HospitalIn the event this information is protected by the Federal Confidentiality of Alcohol and Drug Abuse Patient Records regulations: The Federal rules restrict any use of the information to criminally investigate or prosecute any alcohol or drug abuse patient.[facility] HospitalIn the event this information is protected by the Federal Confidentiality of Alcohol and Drug Abuse Patient Records regulations: The Federal rules restrict any use of the information to criminally investigate or prosecute any alcohol or drug abuse patient.[facility]In the event this information is protected by the Federal Confidentiality of Alcohol and Drug Abuse Patient Records regulations: The Federal rules restrict any use of the information to criminally investigate or prosecute any alcohol or drug abuse patient.[facility]In the event this information is protected by the Federal Confidentiality of Alcohol and Drug Abuse Patient Records regulations: The Federal rules restrict any use of the information to criminally investigate or prosecute any alcohol or drug abuse patient.[facility] HospitalIn the event this information is protected by the Federal Confidentiality of Alcohol and Drug Abuse Patient Records regulations: The Federal rules restrict any use of the information to criminally investigate or prosecute any alcohol or drug abuse patient.[facility] HospitalIn the event this information is protected by the Federal Confidentiality of Alcohol and Drug Abuse Patient Records regulations: The Federal rules restrict any use of the information to criminally investigate or prosecute any alcohol or drug abuse patient.[facility] HospitalIn the event this information is protected by the Federal Confidentiality of Alcohol and Drug Abuse Patient Records regulations: The Federal rules restrict any use of the information to criminally investigate or prosecute any alcohol or drug abuse patient.[facility] HospitalIn the event this information is protected by the Federal Confidentiality of Alcohol and Drug Abuse Patient Records regulations: The Federal rules restrict any use of the information to criminally investigate or prosecute any alcohol or drug abuse patient.[facility] HospitalIn the event this information is protected by the Federal Confidentiality of Alcohol and Drug Abuse Patient Records regulations: The Federal rules restrict any use of the information to criminally investigate or prosecute any alcohol or drug abuse patient.[facility] HospitalIn the event this information is protected by the Federal Confidentiality of Alcohol and Drug Abuse Patient Records regulations: The Federal rules restrict any use of the information to criminally investigate or prosecute any alcohol or drug abuse patient.[facility] HospitalIn the event this information is protected by the Federal Confidentiality of Alcohol and Drug Abuse Patient Records regulations: The Federal rules restrict any use of the information to criminally investigate or prosecute any alcohol or drug abuse patient.[facility] HospitalIn the event this information is protected by the Federal Confidentiality of Alcohol and Drug Abuse Patient Records regulations: The Federal rules restrict any use of the information to criminally investigate or prosecute any alcohol or drug abuse patient.[facility] HospitalIn the event this information is protected by the Federal Confidentiality of Alcohol and Drug Abuse Patient Records regulations: The Federal rules restrict any use of the information to criminally investigate or prosecute any alcohol or drug abuse patient.[facility] HospitalIn the event this information is protected by the Federal Confidentiality of Alcohol and Drug Abuse Patient Records regulations: The Federal rules restrict any use of the information to criminally investigate or prosecute any alcohol or drug abuse patient.[facility] HospitalIn the event this information is protected by the Federal Confidentiality of Alcohol and Drug Abuse Patient Records regulations: The Federal rules restrict any use of the information to criminally investigate or prosecute any alcohol or drug abuse patient.[facility] HospitalIn the event this information is protected by the Federal Confidentiality of Alcohol and Drug Abuse Patient Records regulations: The Federal rules restrict any use of the information to criminally investigate or prosecute any alcohol or drug abuse patient.[facility] HospitalIn the event this information is protected by the Federal Confidentiality of Alcohol and Drug Abuse Patient Records regulations: The Federal rules restrict any use of the information to criminally investigate or prosecute any alcohol or drug abuse patient.[facility] HospitalIn the event this information is protected by the Federal Confidentiality of Alcohol and Drug Abuse Patient Records regulations: The Federal rules restrict any use of the information to criminally investigate or prosecute any alcohol or drug abuse patient.[facility]In the event this information is protected by the Federal Confidentiality of Alcohol and Drug Abuse Patient Records regulations: The Federal rules restrict any use of the information to criminally investigate or prosecute any alcohol or drug abuse patient.[facility] HospitalIn the event this information is protected by the Federal Confidentiality of Alcohol and Drug Abuse Patient Records regulations: The Federal rules restrict any use of the information to criminally investigate or prosecute any alcohol or drug abuse patient.[facility] HospitalIn the event this information is protected by the Federal Confidentiality of Alcohol and Drug Abuse Patient Records regulations: The Federal rules restrict any use of the information to criminally investigate or prosecute any alcohol or drug abuse patient.[facility] HospitalIn the event this information is protected by the Federal Confidentiality of Alcohol and Drug Abuse Patient Records regulations: The Federal rules restrict any use of the information to criminally investigate or prosecute any alcohol or drug abuse patient.[facility] HospitalIn the event this information is protected by the Federal Confidentiality of Alcohol and Drug Abuse Patient Records regulations: The Federal rules restrict any use of the information to criminally investigate or prosecute any alcohol or drug abuse patient.[facility] HospitalIn the event this information is protected by the Federal Confidentiality of Alcohol and Drug Abuse Patient Records regulations: The Federal rules restrict any use of the information to criminally investigate or prosecute any alcohol or drug abuse patient.[facility] HospitalIn the event this information is protected by the Federal Confidentiality of Alcohol and Drug Abuse Patient Records regulations: The Federal rules restrict any use of the information to criminally investigate or prosecute any alcohol or drug abuse patient.[facility] HospitalIn the event this information is protected by the Federal Confidentiality of Alcohol and Drug Abuse Patient Records regulations: The Federal rules restrict any use of the information to criminally investigate or prosecute any alcohol or drug abuse patient.[facility] HospitalIn the event this information is protected by the Federal Confidentiality of Alcohol and Drug Abuse Patient Records regulations: The Federal rules restrict any use of the information to criminally investigate or prosecute any alcohol or drug abuse patient.[facility] HospitalIn the event this information is protected by the Federal Confidentiality of Alcohol and Drug Abuse Patient Records regulations: The Federal rules restrict any use of the information to criminally investigate or prosecute any alcohol or drug abuse patient.[facility] HospitalIn the event this information is protected by the Federal Confidentiality of Alcohol and Drug Abuse Patient Records regulations: The Federal rules restrict any use of the information to criminally investigate or prosecute any alcohol or drug abuse patient.[facility] HospitalIn the event this information is protected by the Federal Confidentiality of Alcohol and Drug Abuse Patient Records regulations: The Federal rules restrict any use of the information to criminally investigate or prosecute any alcohol or drug abuse patient.[facility] HospitalIn the event this information is protected by the Federal Confidentiality of Alcohol and Drug Abuse Patient Records regulations: The Federal rules restrict any use of the information to criminally investigate or prosecute any alcohol or drug abuse patient.[facility] HospitalIn the event this information is protected by the Federal Confidentiality of Alcohol and Drug Abuse Patient Records regulations: The Federal rules restrict any use of the information to criminally investigate or prosecute any alcohol or drug abuse patient.[facility] HospitalIn the event this information is protected by the Federal Confidentiality of Alcohol and Drug Abuse Patient Records regulations: The Federal rules restrict any use of the information to criminally investigate or prosecute any alcohol or drug abuse patient.[facility] HospitalIn the event this information is protected by the Federal Confidentiality of Alcohol and Drug Abuse Patient Records regulations: The Federal rules restrict any use of the information to criminally investigate or prosecute any alcohol or drug abuse patient.[facility] HospitalIn the event this information is protected by the Federal Confidentiality of Alcohol and Drug Abuse Patient Records regulations: The Federal rules restrict any use of the information to criminally investigate or prosecute any alcohol or drug abuse patient.[facility] HospitalIn the event this information is protected by the Federal Confidentiality of Alcohol and Drug Abuse Patient Records regulations: The Federal rules restrict any use of the information to criminally investigate or prosecute any alcohol or drug abuse patient.[facility] HospitalIn the event this information is protected by the Federal Confidentiality of Alcohol and Drug Abuse Patient Records regulations: The Federal rules restrict any use of the information to criminally investigate or prosecute any alcohol or drug abuse patient.[facility] HospitalIn the event this information is protected by the Federal Confidentiality of Alcohol and Drug Abuse Patient Records regulations: The Federal rules restrict any use of the information to criminally investigate or prosecute any alcohol or drug abuse patient.[facility] HospitalIn the event this information is protected by the Federal Confidentiality of Alcohol and Drug Abuse Patient Records regulations: The Federal rules restrict any use of the information to criminally investigate or prosecute any alcohol or drug abuse patient.[facility] the event this information is protected by the Federal Confidentiality of Alcohol and Drug Abuse Patient Records regulations: The Federal rules restrict any use of the information to criminally investigate or prosecute any alcohol or drug abuse patient.[facility] HospitalIn the event this information is protected by the Federal Confidentiality of Alcohol and Drug Abuse Patient Records regulations: The Federal rules restrict any use of the information to criminally investigate or prosecute any alcohol or drug abuse patient.[facility]In the event this information is protected by the Federal Confidentiality of Alcohol and Drug Abuse Patient Records regulations: The Federal rules restrict any use of the information to criminally investigate or prosecute any alcohol or drug abuse patient.[facility]In the event this information is protected by the Federal Confidentiality of Alcohol and Drug Abuse Patient Records regulations: The Federal rules restrict any use of the information to criminally investigate or prosecute any alcohol or drug abuse patient.[facility] HospitalIn the event this information is protected by the Federal Confidentiality of Alcohol and Drug Abuse Patient Records regulations: The Federal rules restrict any use of the information to criminally investigate or prosecute any alcohol or drug abuse patient.[facility]In the event this information is protected by the Federal Confidentiality of Alcohol and Drug Abuse Patient Records regulations: The Federal rules restrict any use of the information to criminally investigate or prosecute any alcohol or drug abuse patient.[facility] the event this information is protected by the Federal Confidentiality of Alcohol and Drug Abuse Patient Records regulations: The Federal rules restrict any use of the information to criminally investigate or prosecute any alcohol or drug abuse patient.[facility]In the event this information is protected by the Federal Confidentiality of Alcohol and Drug Abuse Patient Records regulations: The Federal rules restrict any use of the information to criminally investigate or prosecute any alcohol or drug abuse patient.[facility] HospitalIn the event this information is protected by the Federal Confidentiality of Alcohol and Drug Abuse Patient Records regulations: The Federal rules restrict any use of the information to criminally investigate or prosecute any alcohol or drug abuse patient.[facility] HospitalIn the event this information is protected by the Federal Confidentiality of Alcohol and Drug Abuse Patient Records regulations: The Federal rules restrict any use of the information to criminally investigate or prosecute any alcohol or drug abuse patient.[facility]In the event this information is protected by the Federal Confidentiality of Alcohol and Drug Abuse Patient Records regulations: The Federal rules restrict any use of the information to criminally investigate or prosecute any alcohol or drug abuse patient.[facility] HospitalIn the event this information is protected by the Federal Confidentiality of Alcohol and Drug Abuse Patient Records regulations: The Federal rules restrict any use of the information to criminally investigate or prosecute any alcohol or drug abuse patient.[facility] Reason for Visit (unrecogniz ed section [...] W/LEAST 12 LDS W/I&[place] [address] [place] [address] [facility] [place] [address] Referral ID Status Reason Start Date Expiration Date V isits Requested Visits Authorized [id number] Closed Auto-Generate d Referral 02/02/2022 02/02/2023 1 [...] Self Treva Reynolds MD [address] [place] [address] Referral ID Status Reason Start Date Expiration Date V isits Requested Visits Authorized [id number] Authorized 03/22/2022 03/21/2023 99 99 Reason Comments [...] Care Teams (unrecognized sec tion and content) Wrinkle Chaser Relationship Specialty Start Date End Date Cheng Mcdaniel MD [address] [place] [address] PCP - General Family Practice 05/06/18 Wrinkle Chaser Relationship Specialty Start Date End Date Cheng Mcdaniel MD [address] [place] [address] PCP - General Family Practice 05/06/18 Wrinkle Chaser Relationship Specialty Start Date End Date Cheng Mcdaniel MD [address] [facility] [place] [address] PCP - General Family Practice 05/06/18 Wrinkle Chaser Relationship Specialty Start Date End Date Cheng Mcdaniel MD [address] [facility] [place] [address] PCP - General Family Practice 05/06/18 Wrinkle Chaser Relationship Specialty Start Date End Date Cheng Mcdaniel MD [address] [place] [place] [address] PCP - General Family Practice 05/06/18 Wrinkle Chaser Relationship Specialty Start Date End Date Cheng Mcdaniel MD [address] [place] [place] [address] PCP - General Family Practice 05/06/18 Wrinkle Chaser Relationship Specialty Start Date End Date Cheng Mcdaniel MD [address] [facility] [place] [address] PCP - General Family Practice 05/06/18 Wrinkle Chaser Relationship Specialty Start Date End Date Cheng Mcdaniel MD [address] [facility] [place] [address] PCP - General Family Medicine 05/06/18 Wrinkle Chaser Relationship Specialty Start Date End Date Cheng Mcdaniel MD [address] [facility] [place] [address] PCP - General Family Medicine 05/06/18 Wrinkle Chaser Relationship Specialty Start Date End Date Cheng Mcdaniel MD [address] [place] [place] [address] PCP - General Family Medicine 05/06/18 Wrinkle Chaser Relationship Specialty Start Date End Date Cheng Mcdaniel MD [address] [facility] [place] [address] PCP - General Family Medicine 05/06/18 Wrinkle Chaser Relationship Specialty Start Date End Date Cheng Mcdaniel MD [address] [facility] [place] [address] PCP - General Family Medicine 05/06/18 Wrinkle Chaser Relationship Specialty Start Date End Date Cheng Mcdaniel MD [address] [facility] [place] [address] PCP - General Family Medicine 05/06/18 Wrinkle Chaser Relationship Specialty Start Date End Date Cheng Mcdaniel MD [address] [place] [address], [place] [address] PCP - General Family Medicine 05/06/18 Wrinkle Chaser Relationship Specialty Start Date End Date Cheng Mcdaniel MD [address] [facility] [place] [address] PCP - General Family Medicine 05/06/18 Wrinkle Chaser Relationship Specialty Start Date End Date Cheng Mcdaniel MD [address] [facility] [place] [address] PCP - General Family Medicine 05/06/18 Wrinkle Chaser Relationship Specialty Start Date End Date Cheng Mcdaniel MD [address] [place] [place] [address] PCP - General Family Medicine 05/06/18 Wrinkle Chaser Relationship Specialty Start Date End Date Cheng Mcdaniel MD [address] [facility] [place] [address] PCP - General Family Medicine 05/06/18 Wrinkle Chaser Relationship Specialty Start Date End Date Cheng Mcdaniel MD [address] [facility] [place] [address] PCP - General Family Medicine 05/06/18 Wrinkle Chaser Relationship Specialty Start Date End Date Cheng Mcdaniel MD [address] [place] [address] PCP - General Family Medicine 05/06/18 Wrinkle Chaser Relationship Specialty Start Date End Date Cheng Mcdaniel MD [address] [place] [address] PCP - General Family Medicine 05/06/18 Wrinkle Chaser Relationship Specialty Start Date End Date Cheng Mcdaniel MD [address] [place] [address] PCP - General Family Medicine 05/06/18 Wrinkle Chaser Relationship Specialty Start Date End Date Cheng Mcdaniel MD [address] [place] [address] PCP - General Family Medicine 05/06/18 Wrinkle Chaser Relationship Specialty Start Date End Date Cheng Mcdaniel MD [address] [place] [address] PCP - General Family Medicine 05/06/18 Wrinkle Chaser Relationship Specialty Start Date End Date Cheng Mcdaniel MD [address] [facility] [address] PCP - General Family Medicine 05/06/18 Wrinkle Chaser Relationship Specialty Start Date End Date Cheng Mcdaniel MD [address] [facility] [place] [address] PCP - General Family Medicine 05/06/18 Wrinkle Chaser Relationship Specialty Start Date End Date Cheng Mcdaniel MD [address] [place] [address] PCP - General Family Medicine 05/06/18 Wrinkle Chaser Relationship Specialty Start Date End Date Cheng Mcdaniel MD [address] [facility] [address] PCP - General Family Medicine 05/06/18 Wrinkle Chaser Relationship Specialty Start Date End Date Cheng Mcdaniel MD [address] [facility] [place] [address] PCP - General Family Medicine 05/06/18 Wrinkle Chaser Relationship Specialty Start Date End Date Cheng Mcdaniel MD [address] [facility] [address] PCP - General Family Medicine 05/06/18 Wrinkle Chaser Relationship Specialty Start Date End Date Cheng Mcdaniel MD [address] [facility] [address] PCP - General Family Medicine 05/06/18 Wrinkle Chaser Relationship Specialty Start Date End Date Cheng Mcdaniel MD [address] [place] [address] PCP - General Family Medicine 05/06/18 Wrinkle Chaser Relationship Specialty Start Date End Date Cheng Mcdaniel MD [address] [facility] [place] [address] PCP - General Family Medicine 05/06/18 Wrinkle Chaser Relationship Specialty Start Date End Date Cheng Mcdaniel MD [address] [facility] [address] PCP - General Family Medicine 05/06/18 Wrinkle Chaser Relationship Specialty Start Date End Date Cheng Mcdaniel MD [address] [facility] [address] PCP - General Family Medicine 05/06/18 Wrinkle Chaser Relationship Specialty Start Date End Date Cheng Mcdaniel MD [address] [facility] [address] PCP - General Family Medicine 05/06/18 Wrinkle Chaser Relationship Specialty Start Date End Date Cheng Mcdaniel MD [address] [facility] [place] [address] PCP - General Family Medicine 05/06/18 Wrinkle Chaser Relationship Specialty Start Date End Date Cheng Mcdaniel MD [address] [facility] [address] PCP - General Family Medicine 05/06/18 Wrinkle Chaser Relationship Specialty Start Date End Date Cheng Mcdaniel MD [address] [facility] [address] PCP - General Family Medicine 05/06/18 Wrinkle Chaser Relationship Specialty Start Date End Date Cheng Mcdaniel MD [address] [facility] [address] PCP - General Family Medicine 05/06/18 Jazz Wright APRN.CNP [address] [place] [address] [facility] 02/26/24 Wrinkle Chaser Relationship Specialty Start Date End Date Cheng Mcdaniel MD [address] [facility] [address] PCP - General Family Medicine 05/06/18 Jazz Wright APRN.[employer]ER [address] [place] [address] [facility] 02/26/24 Team Status: Active Member Role/Relationship Status Yoav Riggins MD Primary Care Provider Active Team Status: Inactive Member Role/Relationship Status Yoav Riggins MD Primary Care Provider Active St art: June 14, 2024 End: June 14, 2024 Wild Riggins MD Referring Provider Active Start : June 14, 2024 End: June 14, 2024 Kunal MELISSA, PA Attending Provider Active Start: June 14, 2024 End: June 14, 2024 Team Status: Inactive Member Role/Relationship Status Yoav Riggins MD Primary Care Provider Active St art: June 27, 2024 End: June 27, 2024 Wild Riggins MD Referring Provider Active Start : June 27, 2024 End: June 27, 2024 Kunal MELISSA, PA Attending Provider Active Start: June 27, 2024 End: June 27, 2024 Team Status: Inactive Member Role/Relationship Status Yoav Riggins MD Primary Care Provider Active St art: October 09, 2024 End: October 09, 2024 Nico Osuna IMMIGRATION COORDINATOR, IMMIGRATION COORDINATOR-C Attending Provider Active Start: October 09, 2024 End: October 09, 2024 Nico Osuna IMMIGRATION COORDINATOR, IMMIGRATION COORDINATOR-C Referring Provider Active Start: October 09, 2024 End: October 09, 2024 Team Status: Inactive Member Role/Relationship Status Yoav Riggins MD Primary Care Provider Active St art: October 09, 2024 End: October 09, 2024 Nico Osuna IMMIGRATION COORDINATOR, IMMIGRATION COORDINATOR-C Attending Provider Active Start: October 09, 2024 End: October 09, 2024 Nico Osuna IMMIGRATION COORDINATOR, IMMIGRATION COORDINATOR-C Referring Provider Active Start: October 09, 2024 [...] November 17, 2024 End: November 17, 2024 Team Status: Active Member Role/Relationship Status Yoav Riggins MD Primary care physician Active Team Status: Inactive Member Role/Relationship Status Yoav Riggins MD Primary care physician Active S tart: October 09, 2024 End: October 09, 2024 Nico Osuna IMMIGRATION COORDINATOR, IMMIGRATION COORDINATOR-C Attending physician Active Start: October 09, 2024 End: October 09, 2024 Nico Osuna IMMIGRATION COORDINATOR, IMMIGRATION COORDINATOR-C Referring Provider Active Start: October 09, 2024 End: October 09, 2024 Team Status: Inactive Member Role/Relationship Status Yoav Riggins MD Primary care physician Active S tart: November 01, 2024 End: November 01, 2024 Dr. Giulia Moore MD Attending physician Active Start: November 01, 2024 End: November 01, 2024 Dr. Giulia Moore MD Referring Provider Active S tart: November 01, 2024 End: November 01, 2024 Dr. Giulia Moore MD Emergency Department Physician Ac tive Start: November 01, 2024 End: November 01, 2024 Team Status: Inactive Member Role/Relationship Status Yoav Riggins MD Primary care physician Active S tart: November 17, 2024 End: November 17, 2024 Wild Riggins MD Attending physician Active Star t: November 17, 2024 End: November 17, 2024 Wild Riggins MD Referring Provider Active Start : November 17, 2024 End: November 17, 2024 Team Status: Active Member Role/Relationship Status Dates Dr. Krish Durbin MD Attending physician Active Start: November 17, 2024 Wild Riggins MD Referring Provider Active Start : November 17, 2024 Team Status: Inactive Member Role/Relationship Status Yoav Riggins MD Primary care physician Active S tart: December 08, 2024 End: December 08, 2024 Wild Riggins MD Attending physician Active Star t: December 08, 2024 End: December 08, 2024 Team Status: Inactive Member Role/Relationship Status Yoav Riggins MD Primary care physician Active S tart: December 09, 2024 End: December 09, 2024 Nico Osuna IMMIGRATION COORDINATOR, IMMIGRATION COORDINATOR-C Attending physician Active Start: December 09, 2024 End: December 09, 2024 Team Status: Inactive Member Role/Relationship Status Yoav Riggins MD Primary care physician Active S tart: December 12, 2024 End: December 12, 2024 Wild Riggins MD Referring Provider Active Start : December 12, 2024 End: December 12, 2024 Kunal MELISSA, PA Attending physician Active Start: December 12, 2024 End: December 12, 2024 Goals (unrecognized section and content) Goals [...] BE BASED ON THE PRIMARY CLINICAL RECORDS. [facility]. provides no warranty or guarantee of the accuracy or completeness of information in this document.
--- NOTE | 2025-03-16 14:22 | RAD_ITS ---
PROCEDURE: CERV SPINE 4 OR 5 VIEWS 03/16/2025 REASON FOR EXAM: NECK PAIN TECHNIQUE: Procedure Code: [facility] Modality: DX Procedure: CERV SPINE 4 OR 5 VIEWS COMPARISON: CT cervical spine 11/01/2024. FINDINGS: Vertebrae: No acute bony abnormalities. disc spaces: Unremarkable. No foramina stenosis. Alignment: Normal alignment soft tissues: No soft tissue abnormalities. Other: RAD/Cerv Spine 4 or 5 Views IMPRESSION: No foramina stenosis. Disc levels are unremarkable. Disclaimer: Reading Location: [id number]
--- NOTE | 2025-03-16 14:22 | RAD_ITS ---
EXAM: XR Left Shoulder Complete, 2 or More Views CLINICAL INDICATION: LEFT SHOULDER PAIN TECHNIQUE: Two or more views of the left shoulder. COMPARISON: No relevant prior studies available. FINDINGS: BONES/JOINTS: Mild degenerative changes of the acromioclavicular joint. No acute fracture. No dislocation. SOFT TISSUES: Unremarkable. RAD/Shoulder min 2 Views IMPRESSION: Degenerative changes as above. Reading Location: [id number]
== END | disposition home or self-care (01) ==
LOC: RAD 14:18
PROVIDERS: PCP Family Medicine; Referring Provider Family Medicine; Visit Provider Family Medicine
DX: M25.512 Pain in left shoulder (principal); M54.2 Cervicalgia
CPT/HCPCS: 72050; 73030